=== PATIENT | male | born 1940 | race Caucasian/White ===

== ENCOUNTER → 2017-02-12 | Outpatient (CLI) | payer MEDICARE, OTHER ==
[~2017-02-12] MED LIST: /AUGM875TA OR; ALBU17IN2 INH; ALBUTEROL INH; ASPI81TA83 OR; ATEN25TA OR; LASI80TA OR; POTA10CA2 OR; PRAV20TA2 OR; SYMB80AE INH; TYLENOL #3 OR
--- NOTE | 2017-02-12 09:09 | REP ---
Chest two views HISTORY: Atherosclerotic heart disease. Comparison: 05/06/2009 The lungs are clear. The heart is upper limits of normal in size. The pulmonary vasculature is normal in appearance. The bony structure is intact. IMPRESSION: No acute disease. Signed by Shahriar Unger MD 02/12/2017 09:01 A
[2017-02-12 09:36] LABS: BASO % 0.8 % (0.0-1.0); EOS # 0.3 K/mm3 (0.0-0.50); LARGE UNSTAINED CELL # 0.2 K/mm3 (0.0-0.4); LARGE UNSTAINED CELL % 3.5 % (0.0-4.0); LYMPH # 1.2 K/mm3 (1.5-4.5); LYMPH % 20.1 % (24.0-44.0); MEAN CORPUSCULAR HEMOGLOBIN 30.5 pg (27.0-33.0); MEAN CORPUSCULAR HGB CONC 32.7 g/dl (32.0-36.5); MEAN CORPUSCULAR VOLUME 93.1 fl (80.0-96.0); MONO # 0.5 K/mm3 (0.0-0.8); MONO % 9.5 % (0.0-5.0); NEUTROPHILS # 3.2 K/mm3 (1.8-7.7); NEUTROPHILS % 61.1 % (36.0-66.0); PLATELET COUNT, AUTOMATED 208 k/mm3 (150-450); RED CELL DISTRIBUTION WIDTH 14.1 % (11.5-14.5); WHITE BLOOD COUNT 5.2 K/mm3 (4.0-10.0)
[2017-02-12 09:44] LABS: ALBUMIN 3.8 GM/DL (3.2-5.2); ALBUMIN/GLOBULIN RATIO 1.03 (1.00-1.93); ALKALINE PHOSPHATASE 130 U/L (45-117); ALT/SGPT 34 U/L (12-78); ANION GAP 7 MEQ/L (8-16); AST/SGOT 22 U/L (15-37); BILIRUBIN,TOTAL 0.5 MG/DL (0.2-1.0); BLOOD UREA NITROGEN 21 MG/DL (7-18); CALCIUM LEVEL 8.9 MG/DL (8.8-10.2); CARBON DIOXIDE LEVEL 30 MEQ/L (21-32); CHLORIDE LEVEL 106 MEQ/L (98-107); CHOLESTEROL LEVEL 194 MG/DL (<200); CREATININE FOR GFR 1.02 MG/DL (0.70-1.30); GLOMERULAR FILTRATION RATE > 60.0 (>42); GLUCOSE, FASTING 118 MG/DL (83-110); SODIUM LEVEL 143 MEQ/L (136-145); TOTAL PROTEIN 7.5 GM/DL (6.4-8.2); TRIGLYCERIDES LEVEL 231 MG/DL (<150)
== END ==
LOC: M WUC 08:08
PROVIDERS: ATTEND Nurse Practitioner Family
DX: Z12.5 Encounter for screening for malignant neoplasm of prostate (principal); I25.10 Atherosclerotic heart disease of native coronary artery without angina pectoris; I10 Essential (primary) hypertension; E78.5 Hyperlipidemia, unspecified; R73.01 Impaired fasting glucose

== ENCOUNTER → 2017-08-23 | Outpatient (CLI) | payer MEDICARE, OTHER ==
[2017-08-23 18:07] LABS: BASO # 0.1 10^3/uL (0.0-0.2); BASO % 1.1 % (0.0-1.0); EOS # 0.3 10^3/uL (0.0-0.50); EOS % 3.5 % (0.0-3.0); IMMATURE GRANULOCYTE % 0.3 % (0-0); LYMPH # 1.1 10^3/uL (1.5-4.5); LYMPH % 15.8 % (24.0-44.0); MEAN CORPUSCULAR HEMOGLOBIN 30.1 pg (27.0-33.0); MEAN CORPUSCULAR HGB CONC 31.6 g/dl (32.0-36.5); MEAN CORPUSCULAR VOLUME 95.3 fl (80.0-96.0); MONO # 0.7 10^3/uL (0.0-0.8); MONO % 10.3 % (0.0-5.0); NEUTROPHILS # 4.9 10^3/uL (1.8-7.7); PLATELET COUNT, AUTOMATED 219 10^3/uL (150-450); RED CELL DISTRIBUTION WIDTH 13.6 % (11.5-14.5); WHITE BLOOD COUNT 7.2 10^3/uL (4.0-10.0)
[2017-08-23 18:28] LABS: ALBUMIN 3.6 GM/DL (3.2-5.2); ALKALINE PHOSPHATASE 131 U/L (45-117); ALT/SGPT 31 U/L (12-78); ANION GAP 7 MEQ/L (8-16); AST/SGOT 21 U/L (7-37); BILIRUBIN,TOTAL 0.6 MG/DL (0.2-1.0); BLOOD UREA NITROGEN 16 MG/DL (7-18); CALCIUM LEVEL 8.8 MG/DL (8.8-10.2); CARBON DIOXIDE LEVEL 31 MEQ/L (21-32); CHLORIDE LEVEL 108 MEQ/L (98-107); CHOLESTEROL LEVEL 162 MG/DL (<200); GLOMERULAR FILTRATION RATE > 60.0 (>42); GLUCOSE, FASTING 111 MG/DL (83-110); POTASSIUM SERUM 4.2 MEQ/L (3.5-5.1); SODIUM LEVEL 146 MEQ/L (136-145); TOTAL PROTEIN 7.2 GM/DL (6.4-8.2); TRIGLYCERIDES LEVEL 121 MG/DL (<150); URIC ACID 6.6 MG/DL (3.5-7.2)
== END ==
LOC: M WUC 10:19
PROVIDERS: ATTEND Nurse Practitioner Family
DX: I10 Essential (primary) hypertension (principal); R73.01 Impaired fasting glucose; E78.5 Hyperlipidemia, unspecified

== ENCOUNTER → 2018-02-13 | Outpatient (CLI) | payer MEDICARE, OTHER ==
[2018-02-13 09:25] LABS: BASO # 0.1 10^3/uL (0.0-0.2); EOS # 0.2 10^3/uL (0.0-0.50); EOS % 4.8 % (0.0-3.0); HEMOGLOBIN 12.4 g/dl (13.5-17.5); IMMATURE GRANULOCYTE % 0.8 % (0-3.0); LYMPH # 1.2 10^3/uL (1.5-4.5); LYMPH % 24.8 % (24.0-44.0); MEAN CORPUSCULAR HEMOGLOBIN 30.3 pg (27.0-33.0); MEAN CORPUSCULAR HGB CONC 32.6 g/dl (32.0-36.5); MEAN CORPUSCULAR VOLUME 92.9 fl (80.0-96.0); MONO # 0.6 10^3/uL (0.0-0.8); MONO % 12.8 % (0.0-5.0); NEUTROPHILS # 2.8 10^3/uL (1.8-7.7); NEUTROPHILS % 55.8 % (36.0-66.0); PLATELET COUNT, AUTOMATED 247 10^3/uL (150-450); RED BLOOD COUNT 4.09 10^6/uL (4.30-6.10); RED CELL DISTRIBUTION WIDTH 13.3 % (11.5-14.5)
[2018-02-13 09:56] LABS: ALBUMIN 3.5 GM/DL (3.2-5.2); ALBUMIN/GLOBULIN RATIO 0.92 (1.00-1.93); ALKALINE PHOSPHATASE 117 U/L (45-117); ALT/SGPT 33 U/L (12-78); ANION GAP 6 MEQ/L (8-16); AST/SGOT 24 U/L (7-37); BILIRUBIN,TOTAL 0.7 MG/DL (0.2-1.0); BLOOD UREA NITROGEN 17 MG/DL (7-18); CALCIUM LEVEL 8.8 MG/DL (8.8-10.2); CARBON DIOXIDE LEVEL 31 MEQ/L (21-32); CHLORIDE LEVEL 109 MEQ/L (98-107); CHOLESTEROL LEVEL 155 MG/DL (<200); CREATININE FOR GFR 1.01 MG/DL (0.70-1.30); GLOMERULAR FILTRATION RATE > 60.0 (>42); GLUCOSE, FASTING 123 MG/DL (70-100); HDL CHOLESTEROL 52 MG/DL (>40); LDL CHOLESTEROL 80.2 MG/DL (<100); NON-HDL-C 103 MG/DL; POTASSIUM SERUM 4.4 MEQ/L (3.5-5.1); SODIUM LEVEL 146 MEQ/L (136-145); TOTAL PROTEIN 7.3 GM/DL (6.4-8.2); TRIGLYCERIDES LEVEL 114 MG/DL (<150)
[2018-02-13 10:45] LABS: ESTIMATED AVERAGE GLUCOSE 146 MG/DL (60-110); HEMOGLOBIN A1c 6.7 %
[2018-02-14 14:11] LABS: PSA % FREE 23.7 % (.); PSA FREE 1.09 ng/mL; PSA TOTAL 4.6 ng/mL (0.0-4.0)
== END ==
LOC: M WUC 08:32
DX: R73.01 Impaired fasting glucose (principal); I10 Essential (primary) hypertension; Z12.5 Encounter for screening for malignant neoplasm of prostate; E78.5 Hyperlipidemia, unspecified
CPT/HCPCS: 80053

== ENCOUNTER 2018-04-01 10:04 | Day surgery (SDC) | payer MEDICARE, OTHER ==
[2018-04-01] MEDS: NS 1,000 ML IV (10:15)
[2018-04-01] MEDS ORDERED: PROPOFOL 200 MG/20 ML VIAL As Ordered (11:27)
== END 2018-04-01 12:17 | disposition home or self-care (01) ==
LOC: M OPP 10:04
DX: Z12.11 Encounter for screening for malignant neoplasm of colon (principal); D12.3 Benign neoplasm of transverse colon; K64.0 First degree hemorrhoids; K57.30 Diverticulosis of large intestine without perforation or abscess without bleeding; I10 Essential (primary) hypertension; I25.6 Silent myocardial ischemia; R06.02 Shortness of breath; M19.90 Unspecified osteoarthritis, unspecified site; J45.909 Unspecified asthma, uncomplicated; H91.3 Deaf nonspeaking, not elsewhere classified; G47.30 Sleep apnea, unspecified; R06.83 Snoring; Z87.891 Personal history of nicotine dependence; Z79.82 Long term (current) use of aspirin; Z79.899 Other long term (current) drug therapy; Z80.42 Family history of malignant neoplasm of prostate; Z80.3 Family history of malignant neoplasm of breast
CPT/HCPCS: 45385

== ENCOUNTER → 2018-07-30 | Outpatient (CLI) | payer MEDICARE, OTHER ==
[2018-07-30 11:59] LABS: BASO # 0.1 10^3/uL (0.0-0.2); BASO % 0.9 % (0.0-1.0); EOS # 0.4 10^3/uL (0.0-0.50); EOS % 6.1 % (0.0-3.0); HEMATOCRIT 40.3 % (42.0-52.0); HEMOGLOBIN 13.1 g/dl (13.5-17.5); IMMATURE GRANULOCYTE % 0.3 % (0-3.0); LYMPH # 1.2 10^3/uL (1.5-4.5); LYMPH % 20.1 % (24.0-44.0); MEAN CORPUSCULAR HEMOGLOBIN 30.3 pg (27.0-33.0); MEAN CORPUSCULAR HGB CONC 32.5 g/dl (32.0-36.5); MEAN CORPUSCULAR VOLUME 93.3 fl (80.0-96.0); MONO # 0.7 10^3/uL (0.0-0.8); NEUTROPHILS # 3.5 10^3/uL (1.8-7.7); NEUTROPHILS % 60.6 % (36.0-66.0); PLATELET COUNT, AUTOMATED 232 10^3/uL (150-450); RED BLOOD COUNT 4.32 10^6/uL (4.30-6.10); RED CELL DISTRIBUTION WIDTH 13.5 % (11.5-14.5); WHITE BLOOD COUNT 5.8 10^3/uL (4.0-10.0)
[2018-07-30 12:26] LABS: ALBUMIN 3.5 GM/DL (3.2-5.2); ALKALINE PHOSPHATASE 123 U/L (45-117); ALT/SGPT 30 U/L (12-78); ANION GAP 3 MEQ/L (8-16); AST/SGOT 20 U/L (7-37); BILIRUBIN,TOTAL 0.7 MG/DL (0.2-1.0); BLOOD UREA NITROGEN 18 MG/DL (7-18); CALCIUM LEVEL 8.9 MG/DL (8.8-10.2); CARBON DIOXIDE LEVEL 33 MEQ/L (21-32); CHLORIDE LEVEL 108 MEQ/L (98-107); CHOLESTEROL LEVEL 157 MG/DL (<200); CHOLESTEROL RISK RATIO 3.413 (<5); CREATININE FOR GFR 1.05 MG/DL (0.70-1.30); GLOMERULAR FILTRATION RATE > 60.0 (>42); GLUCOSE, FASTING 111 MG/DL (70-100); HDL CHOLESTEROL 46 MG/DL (>40); LDL CHOLESTEROL 83 MG/DL (<100); NON-HDL-C 111 MG/DL; POTASSIUM SERUM 4.4 MEQ/L (3.5-5.1); SODIUM LEVEL 144 MEQ/L (136-145); TRIGLYCERIDES LEVEL 138 MG/DL (<150)
[2018-07-30 12:44] LABS: ESTIMATED AVERAGE GLUCOSE 134 MG/DL (60-110); HEMOGLOBIN A1c 6.3 %
== END ==
LOC: M WUC 10:08
DX: M17.12 Unilateral primary osteoarthritis, left knee (principal); M25.562 Pain in left knee; I10 Essential (primary) hypertension; E78.5 Hyperlipidemia, unspecified; E11.9 Type 2 diabetes mellitus without complications
CPT/HCPCS: 80053

== ENCOUNTER → 2019-01-22 | Outpatient (CLI) | payer MEDICARE, OTHER ==
[~2019-01-22] MED LIST changes: +ADV250INH INH; +ALLO10TA PO; -ASPI81TA83 OR; +ASPI81TA83 PO; +LATA0.0013 OU
[2019-01-22 12:47] LABS: BASO # 0.1 10^3/uL (0.0-0.2); EOS # 0.3 10^3/uL (0.0-0.50); EOS % 4.5 % (0.0-3.0); HEMATOCRIT 40.7 % (42.0-52.0); HEMOGLOBIN 13.1 g/dl (13.5-17.5); LYMPH # 1.3 10^3/uL (1.5-4.5); LYMPH % 20.5 % (24.0-44.0); MEAN CORPUSCULAR HEMOGLOBIN 30.6 pg (27.0-33.0); MEAN CORPUSCULAR HGB CONC 32.2 g/dl (32.0-36.5); MEAN CORPUSCULAR VOLUME 95.1 fl (80.0-96.0); MONO # 0.8 10^3/uL (0.0-0.8); MONO % 12.6 % (0.0-5.0); NEUTROPHILS # 3.8 10^3/uL (1.8-7.7); NEUTROPHILS % 60.9 % (36.0-66.0); PLATELET COUNT, AUTOMATED 213 10^3/uL (150-450); RED BLOOD COUNT 4.28 10^6/uL (4.30-6.10); WHITE BLOOD COUNT 6.2 10^3/uL (4.0-10.0)
[2019-01-22 13:04] LABS: ALBUMIN 3.9 GM/DL (3.2-5.2); ALT/SGPT 35 U/L (12-78); BILIRUBIN,TOTAL 0.9 MG/DL (0.2-1.0); BLOOD UREA NITROGEN 18 MG/DL (7-18); CARBON DIOXIDE LEVEL 31 MEQ/L (21-32); CHLORIDE LEVEL 107 MEQ/L (98-107); CHOLESTEROL LEVEL 177 MG/DL (<200); GLOMERULAR FILTRATION RATE > 60.0 (>42); GLUCOSE, FASTING 121 MG/DL (70-100); HDL CHOLESTEROL 56 MG/DL (>40); LDL CHOLESTEROL 89 MG/DL (<100); NON-HDL-C 121 MG/DL; SODIUM LEVEL 143 MEQ/L (136-145); TRIGLYCERIDES LEVEL 161 MG/DL (<150)
[2019-01-22 13:08] LABS: HEMOGLOBIN A1c 6.2 %
== END ==
LOC: M WUC 10:14
PROVIDERS: ATTEND Nurse Practitioner Family
DX: E11.9 Type 2 diabetes mellitus without complications (principal); E78.5 Hyperlipidemia, unspecified; I10 Essential (primary) hypertension

== ENCOUNTER → 2019-06-30 | Outpatient (CLI) | payer MEDICARE, OTHER ==
[2019-06-30 13:03] LABS: HEMATOCRIT 41.8 % (42.0-52.0); HEMOGLOBIN 13.5 g/dl (13.5-17.5); MEAN CORPUSCULAR HEMOGLOBIN 30.4 pg (27.0-33.0); MEAN CORPUSCULAR HGB CONC 32.3 g/dl (32.0-36.5); MEAN CORPUSCULAR VOLUME 94.1 fl (80.0-96.0); PLATELET COUNT, AUTOMATED 303 10^3/uL (150-450); RED BLOOD COUNT 4.44 10^6/uL (4.30-6.10); WHITE BLOOD COUNT 9.8 10^3/uL (4.0-10.0)
[2019-06-30 13:32] LABS: ALBUMIN 3.4 GM/DL (3.2-5.2); ALT/SGPT 39 U/L (12-78); BILIRUBIN,TOTAL 0.6 MG/DL (0.2-1.0); BLOOD UREA NITROGEN 18 MG/DL (7-18); CALCIUM LEVEL 9.7 MG/DL (8.8-10.2); CARBON DIOXIDE LEVEL 30 MEQ/L (21-32); CHLORIDE LEVEL 105 MEQ/L (98-107); CHOLESTEROL LEVEL 143 MG/DL (<200); CHOLESTEROL RISK RATIO 3.487 (<5); CREATININE FOR GFR 1.11 MG/DL (0.70-1.30); GLOMERULAR FILTRATION RATE > 60.0 (>35); GLUCOSE, FASTING 115 MG/DL (70-100); HDL CHOLESTEROL 41 MG/DL (>40); LDL CHOLESTEROL 75 MG/DL (<100); NON-HDL-C 102 MG/DL; POTASSIUM SERUM 4.4 MEQ/L (3.5-5.1); SODIUM LEVEL 142 MEQ/L (136-145); TOTAL PROTEIN 7.5 GM/DL (6.4-8.2); TRIGLYCERIDES LEVEL 137 MG/DL (<150)
== END ==
LOC: M WUC 10:31
PROVIDERS: ATTEND Obstetrics & Gynecology
DX: E78.00 Pure hypercholesterolemia, unspecified (principal); I10 Essential (primary) hypertension; Z87.891 Personal history of nicotine dependence

== ENCOUNTER → 2019-07-13 | Outpatient (CLI) | payer MEDICARE, OTHER ==
--- NOTE | 2019-07-13 12:01 | REP ---
Emergency bilateral lower extremity arterial Doppler ultrasound: History: History of left lower extremity stents. Peripheral vascular disease. Findings: Ankle brachial indices could not be accomplished due to occluded vessels and patient tolerance. Severe plaquing is seen bilaterally in the lower extremity arteries. Monophasic arterial Doppler waveforms are seen throughout the lower extremities bilaterally. The right distal anterior tibial artery and the left distal posterior tibial artery are seen to be occluded. No stents are visualized. Exam is somewhat limited due to patient body habitus and edema. Right lower extremity arterial Doppler velocity chart: CF A 8-39 cm/S Profunda 176 Proximal SFA 128 Mid SFA 377 Distal SFA 91 Popliteal 58 Proximal AT A 45 Tibioperoneal trunk 78 Proximal PENCIL SORTER 57 Distal PENCIL SORTER 50 Distal AT A occluded Left lower extremity arterial Doppler velocity chart: CF A 99 cm/S Profunda 141 Proximal SFA 101 Mid SFA 70 Distal SFA 105 Popliteal 45 Proximal AT A 9.5 Tibioperoneal trunk 42 Proximal PENCIL SORTER 44 Distal PENCIL SORTER occluded Distal AT A 35 Electronically Signed by Hector Espinoza MD 07/13/2019 11:53 A
== END ==
LOC: M RAD 09:58
PROVIDERS: ATTEND Surgery Vascular Surgery
DX: I73.9 Peripheral vascular disease, unspecified (principal); R60.0 Localized edema

== ENCOUNTER → 2019-08-17 | Outpatient (CLI) | payer MEDICARE, OTHER ==
[~2019-08-17] VITALS: Ht 167.6 cm; Wt 109.8 kg
[~2019-08-17] MED LIST changes: +CLOP75TA2 PO; +CLOPIDOGREL 75 MG TAB As Ordered ONE; +HEPARIN 1,000 UNITS/ML 10ML VIAL (FOR RADIOLOGY& DIALYSIS ONLY) As Ordered ONE; +ISOVUE-300 61% 50ML VIAL (Q9967) As Ordered ONE; +LIDOCAINE 1% MDV 20ML VIAL As Ordered ONE; +MIDAZOLAM INJ 2 MG/2 ML VIAL (J2250) As Ordered ONE; +fentaNYL 100 MCG/2 ML INJECTION (J3010) As Ordered ONE
[2019-08-17 09:11] LABS: HEMATOCRIT 39.6 % (42.0-52.0); MEAN CORPUSCULAR HEMOGLOBIN 30.9 pg (27.0-33.0); MEAN CORPUSCULAR HGB CONC 32.8 g/dl (32.0-36.5); MEAN CORPUSCULAR VOLUME 94.1 fl (80.0-96.0); PLATELET COUNT, AUTOMATED 238 10^3/uL (150-450); RED BLOOD COUNT 4.21 10^6/uL (4.30-6.10); WHITE BLOOD COUNT 5.8 10^3/uL (4.0-10.0)
[2019-08-17 09:32] LABS: BLOOD UREA NITROGEN 15 MG/DL (7-18); CALCIUM LEVEL 9.4 MG/DL (8.8-10.2); CARBON DIOXIDE LEVEL 30 MEQ/L (21-32); CHLORIDE LEVEL 108 MEQ/L (98-107); CREATININE FOR GFR 1.05 MG/DL (0.70-1.30); GLOMERULAR FILTRATION RATE > 60.0 (>35); GLUCOSE, FASTING 112 MG/DL (70-100); POTASSIUM SERUM 4.3 MEQ/L (3.5-5.1); SODIUM LEVEL 143 MEQ/L (136-145)
--- NOTE | 2019-08-17 12:14 | ROOPDOC ---
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 Ultrasound-guided access right common femoral artery 2. Aortoiliofemoral arteriogram, left lower extremity arteriogram and runoff from common femoral selection 3. Cross chronic total occlusion left superficial femoral artery and select arteriogram at popliteal artery left 4. Angioplasty left superficial femoral artery with 6 x 200 [place] balloon 5. Stent left superficial femoral artery with 6 x 150 and innova stent 2, and post-dilation was 6 x 200 [place] balloon 6. Completion arteriogram left lower extremity 7. Right lower extremity arteriogram and runoff 8. Mynx closure device right common femoral artery SURGEON: Dean Ortiz MD ANESTHESIA: Local anesthesia 10 mL lidocaine. Moderate intravenous conscious sedation was administered by Dr. Ortiz. The patient was independently monitored by a registered nurse and signed to the Department of radiology using automated blood pressure, EKG, and pulse oximetry. The detailed conscious sedation record is permanently house in the hospital information system. The following is the brief sedation record: Start time 10:45, stop time 11:40, fentanyl 75 g IV, Versed 2 mg IV, heparin 5000 units IV. INDICATION FOR PROCEDURE: Mr. Montalvo is a very pleasant 79-year-old gentleman with atherosclerosis the eagle vessels and suspected claudication. The patient is deaf, and I believe some of his description of his lower extremity discomfort is lasted translation with the buckle sewer machine for sign language. After a lengthy discussion, I was convinced the patient did have symptomatic vascular disease and claudication, although his description was not classic. His arterial duplex revealed arterial insufficiency bilaterally, and the risks benefits and alternatives to an arteriogram with intervention were explained. The patient said the worst symptoms were on the left so we will start with that leg. We did not use of substantial amount of IV contrast, we may angiogram the right leg after the procedure to see if we need to bring him back for that extremity. We had a long talk about this and all questions were answered. Informed consent was obtained. INTERPRETATION: 1. Aortoiliac arterial system bilaterally is widely patent large with brisk flow. 2. The left common femoral artery is widely patent and runs off until widely patent profunda which gives extensive collaterals to the above-knee popliteal artery. The SFA is patent proximally but tapers off a few centimeters from its origin and then includes with an extensive network of collaterals around the chronic total occlusion reconstituting above the knee in the popliteal artery. There is 3 vessel runoff to the foot. 3. After crossing the chronic total occlusion and confirming we're in the true lumen at the popliteal with a quick arteriogram, we performed an angioplasty across the area of occlusion, and three-minute inflations along the length of the vessel were performed. There was several areas of flow-limiting dissection and stenosis after angioplasty. We were able to successfully stent the occluded SFA and completion arteriogram showed widely patent flow from the common femoral to the toes with no embolization, externalization, or dissection present. 4. The right lower extremity common femoral artery and profunda are widely patent. SFA is open proximally but tapers and occludes and reconstitutes in the mid below knee popliteal artery through an extensive system of collaterals. It is difficult to see how much tibial outflow is present due to the long segment occlusion of the SFA, but at least the posterior tibial and peroneal appear to be open, possibly the anterior tibial as well. We will need better imaging once we treat the SFA disease. This will be done on a separate procedure. REPORT OF OPERATION: Patient was brought to the angiographic suite in stable condition. His bilateral groins were prepped and draped in a sterile fashion. A timeout was performed. Sedation was administered without consultation. Ultrasound was used to guide access to the right common femoral artery cranial. This was a difficult access due to morbid obesity. A wire was passed through this access into the femoral and iliac system under fluoroscopic guidance. The needle was removed and a micro-sheath was placed under fluoroscopic guidance. We then advanced a Glidewire through the iliac system into the distal aorta under fluoroscopic guidance. The micro-sheath was removed and a 6 Japanese sheath was placed and flushed with saline. We advanced an Omni flushed catheter over the wire into the distal aorta and aortoiliofemoral arteriograms were performed. Please see interpretation above. Next, we would happen over the bifurcation to select the left common femoral artery and from their arteriograms of the left lower extremity were performed. Please see interpretation above. We then advanced a Glidewire through the Omni flushed catheter into the SFA down to the area of occlusion. We then removed the Omni flushed catheter and exchanged for a short 6 Japanese sheath for 45 cm 6 Japanese sheath up over the bifurcation and flushed sheath with saline. We then attempted to cross the chronic total occlusi on with a Glidewire and aerobic on catheter, but unfortunately the wire and the catheter kept selecting large chronic collaterals. We therefore exchange the catheter for an angle glide to try to angle the tip of the wire away from the collaterals. Eventually, we were able to cross through into the eagle popliteal artery and confirm this with a quick arteriogram. We then advanced her wire into the tibial system carefully and over the wire we passed a 6 x 200 [place] balloon. Three-minute inflations was performed proximally and distally across the areas of occlusion. Following this, we noted several areas of dissection and irregular plaque, both flow-limiting. We selected to Innova stents, 6 x 150, and these were deployed from Maikol's canal to the proximal SFA to exclude the flow- limiting plaque and dissections. We then post-dilated with a 6 x 200 [place] balloon. Completion arteriograms on the left showed widely patent flow through the SFA with no extravasation embolization or dissections present. We had patent 3 vessel runoff to the foot with no embolization noted. We then exchanged for 6 Japanese sheath for a short 6 Japanese sheath and flushed sheath with saline. We then performed a quick arteriogram of the right lower extremity to ensure that we did need to bring the patient back for intervention so we can discuss this with him at his next clinic visit and he can make a decision on further intervention. Please see interpretation above. We deployed a minx closure device at the right common femoral artery with good hemostasis. Pressure was held for 10 minutes and the patient was taken to recovery in stable condition. ESTIMATED BLOOD LOSS: Approximately 10 mL. COMPLICATIONS: None. PLAN: Our plan is for 4 hours of bedrest and then DC home, and then we will celina ng the patient back to clinic and see how he is feeling after his left lower extremity intervention. He will need to be on Plavix postprocedure for at least 60 days. We will discuss the findings of his right lower extremity arteriogram in clinic and see if he would like to pursue right lower extremity intervention. The blockage on the right is a little worse in the blockage on the left, and I'm not 100% that we can [place], but I definitely think it is worthwhile. This is a patient who is high risk for open surgery due to advanced age and morbid obesity. An endovascular option is certainly in his favor if we can provide it. The patient is not at risk for limb loss, and if he chooses not to have intervention, he will likely only have claudication, so we will see how he feels about additional intervention at his next visit. DEAN ORTIZ MD Aug 17, 2019 12:14
[2019-08-17 15:30] VITALS: BP 134/63
== END ==
LOC: M IRPRO 08:35
PROVIDERS: ATTEND Surgery Vascular Surgery
DX: I70.213 Atherosclerosis of native arteries of extremities with intermittent claudication, bilateral legs (principal); I70.92 Chronic total occlusion of artery of the extremities; E66.01 Morbid (severe) obesity due to excess calories
CPT/HCPCS: 37226; 37228; 75716; 75774; 80048; 85027; 99152; 99153; C1725; C1760; C1769; C1876; C1887; C1894; J2250; J3010; Q9967

== ENCOUNTER → 2019-09-01 | Outpatient (CLI) | payer MEDICARE, OTHER ==
[~2019-09-01] MED LIST changes: -CLOPIDOGREL 75 MG TAB As Ordered ONE
[2019-09-01 07:05] VITALS: BP 192/91
== END ==
LOC: M IRPRO 06:51
PROVIDERS: ATTEND Surgery Vascular Surgery
DX: I70.209 Unspecified atherosclerosis of native arteries of extremities, unspecified extremity (principal); Z53.9 Procedure and treatment not carried out, unspecified reason

== ENCOUNTER → 2019-09-27 | Outpatient (CLI) | payer MEDICARE, OTHER ==
[~2019-09-27] MED LIST changes: +CLOPIDOGREL 75 MG TAB As Ordered ONE
[2019-09-27 08:59] LABS: HEMATOCRIT 41.2 % (42.0-52.0); HEMOGLOBIN 13.3 g/dl (13.5-17.5); MEAN CORPUSCULAR HEMOGLOBIN 30.4 pg (27.0-33.0); MEAN CORPUSCULAR HGB CONC 32.3 g/dl (32.0-36.5); MEAN CORPUSCULAR VOLUME 94.3 fl (80.0-96.0); PLATELET COUNT, AUTOMATED 234 10^3/uL (150-450); RED BLOOD COUNT 4.37 10^6/uL (4.30-6.10); WHITE BLOOD COUNT 5.7 10^3/uL (4.0-10.0)
[2019-09-27 09:19] LABS: BLOOD UREA NITROGEN 16 MG/DL (7-18); CALCIUM LEVEL 9.1 MG/DL (8.8-10.2); CARBON DIOXIDE LEVEL 31 MEQ/L (21-32); CHLORIDE LEVEL 107 MEQ/L (98-107); CREATININE FOR GFR 1.12 MG/DL (0.70-1.30); GLOMERULAR FILTRATION RATE > 60.0 (>35); GLUCOSE, FASTING 120 MG/DL (70-100); POTASSIUM SERUM 3.9 MEQ/L (3.5-5.1); SODIUM LEVEL 144 MEQ/L (136-145)
--- NOTE | 2019-09-27 14:21 | ROOPDOC ---
[facility] Report Of Operation Report of Operation DATE OF PROCEDURE: 09/27/19 PREPROCEDURE DIAGNOSES: Atherosclerosis of the lower [place] vessels with lifestyle limiting claudication POSTPROCEDURE DIAGNOSES: Same PROCEDURE: 1. Ultrasound-guided access left common femoral artery 2. Right lower extremity arteriogram and after selection of the right superfic ial femoral artery and distal popliteal artery 3. Angioplasty right popliteal artery and distal SFA with 5 x 200 [place] balloon 4. Angioplasty right SFA with 6 x 200 [place] balloon 5. Stent right proximal popliteal artery with 5 x 100 Innova stent and post- dilation with 5 x 200 [place] balloon 6. Completion arteriograms 7. Mynx closure left common femoral artery SURGEON: Dean Ortiz MD ANESTHESIA: Local anesthesia 7 mL lidocaine. Moderate intravenous conscious sedation was supervised by Dr. Ortiz. The patient was independently monitored by registered nurse assigned in the department of radiology using automated blood pressure, EKG, and pulse oximetry. The detailed sedation record is permanently stored in the Hospital information system. The following is the brief sedation record: Start time 12:55, stop time 14:01, fentanyl 100 g IV, Versed 1 mg IV, heparin 5000 units IV. CONTRAST: 55 mL Isovue-300 INDICATION FOR PROCEDURE: Mr. Montalvo is a very pleasant 79-year-old patient with bilateral lower extremity severe peripheral vascular disease who underwent revascularization on the left lower extremity now returns for revascularization on the right lower extremity. Risks benefits alternatives to intervention were explained to the patient. Our plan today is to angioplasty his popliteal artery and SFA artery stenoses and occlusion if we are able to cross him. His tibial ou tflow is mainly through the posterior tibial artery with some flow through the AT and the peritoneal, but he has excellent flow through the posterior tibial artery and no wounds on the foot, therefore we will likely not intervene on the tibials today. During inflow to the lower part of his leg by opening up the occlusion in the SFA should be very helpful. He was agreeable to proceed and informed consent was obtained. We had a sign writer letterer or painter present for the preop in the entire procedure in the postop for sign language as the patient is deaf. INTERPRETATION: 1. 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 The vessel reconstitutes in the popliteal artery through extensive collaterals although there is thready flow more proximal to this through heavy calcified plaque. There are extensive collaterals around the knee as well and there is a near occlusion in the mid popliteal artery. Distal to this, there is a widely patent popliteal artery and large posterior tibial artery runoff to the foot. The anterior tibial and peroneal are small and thready. 2. After crossing the chronic total occlusion in the SFA and crossing through the popliteal artery, we angioplasty the popliteal artery with a 5 x 200 [place] balloon. Following a three-minute inflation, there is a 3 cm dissection in the popliteal artery across the area of heavy stenosis and just distal to that. Repeat angioplasty was unsuccessful in resolving the dissection and it was narrowing the true lumen enough that I felt this warranted stenting. A 5 x 100 Innova stent was placed across just the proximal aspect of the dissection in order to avoid stenting across the midportion of the popliteal artery. This was postdilated with a 5 x 200 balloon and following this there was near resolution of the dissection and no flow limitation. 3. The chronic total occlusion and stenotic areas of the SFA were angioplasty for three-minute inflation with a 6 x 200 [place] balloon. Following this, there was widely patent flow through the SFA and no residual stenosis, no dissections and no extravasation. At this time I did not feel the area warranted a stent, but if her is recurrence of plaque or stenosis, we will need to stent. 4. Completion arteriogram showed good runoff to the foot and a mynx closure was performed of the left common femoral with good hemostasis. REPORT OF OPERATION: Patient was brought to the angiographic suite in stable condition and placed supine on the fluoroscopic table. His bilateral groins were prepped and draped in a sterile fashion. A timeout was performed. Local anesthesia was administered to the skin and subcutaneous tissue over the left common femoral artery and a microneedle was used to access the artery under ultrasound guidance. A wire was passed through this access under fluoroscopic guidance the needle was removed. The micro-sheath was placed and through this access Glidewire was advanced into the aorta under fluoroscopic guidance. We exchanged sheath for 6 [place] sheath with was flushed with saline. An Omni flushed catheter was used to go up and over the bifurcation and the Glidewire was navigated into the superficial femoral artery proximally. We then exchanged the sheath for 6 x 45 destination sheath and flushed the sheath with saline. Arteriograms were performed of the right lower extremity. We then utilized a gli de cath in the Glidewire to carefully navigate through the occlusion in the SFA. This took a bit of time, but we were eventually able to cross. We then attempted to cross through the popliteal artery distally, but this was more challenging than expected. The stenosis was actually tighter than we expected and took some time to cross. We then confirmed we were in the true lumen with a quick arteriogram, and then navigated a 5 x 200 [place] balloon across to the distal popliteal artery. A three-minute inflation was performed, and following this there was a dissection noted for 3 cm length in the mid popliteal artery. We angioplasty to second time for 4 minutes at low atmospheres, but unfortunately the dissection persisted. It did narrow the lumen enough that I felt it warranted stenting. We do not like to stent across the joint, so we place a stent just at the proximal aspect of the dissection to help eliminate the inflow issue. We postdilated with a 5 x 200 balloon and found near resolution of the dissection following this. We then angioplasty with a 6 x 200 [place] balloon across the superficial femoral artery occlusion from Maikol's canal to the proximal vessel. After three-minute inflation, we saw widely patent flow through the SFA with no residual stenosis, no extravasation, and no dissection. I did not feel this warranted the stent at this time, but we will place a stent restenosis occurs. We then obtained runoffs of the lower extremities and there was no embolization noted and still rapid flow through the widely patent posterior tibial artery of the foot which is the patient's best tibial runoff. The anterior tibial and peroneal are patent with thready. This concluded the procedure. We exchanged the sheath for short 6 [place] sheath and applied a Mynx closure device under fluoroscopic guidance with good hemostasis. Pressure was held for 10 minutes and the patient was transferred to recovery in stable condition. There were no complications and the patient tolerated the procedure well. ESTIMATED BLOOD LOSS: Approximately 5 mL. COMPLICATIONS: None. PLAN: Our plan will be to see the patient back in a week and check his perfusion. We will also check his groin access site on the left. He will need to be on Plavix for at minimum 60 days post stent placement. He is on Plavix now. DEAN ORTIZ MD Sep 27, 2019 14:21
[2019-09-27 18:05] VITALS: BP 159/87
== END ==
LOC: M IRPRO 08:06
PROVIDERS: ATTEND Surgery Vascular Surgery
DX: I70.213 Atherosclerosis of native arteries of extremities with intermittent claudication, bilateral legs (principal); I70.92 Chronic total occlusion of artery of the extremities
CPT/HCPCS: 37225; 75710; 80048; 85027; 99152; 99153; C1725; C1760; C1769; C1876; C1887; C1894; J2250; J3010; Q9967

== ENCOUNTER → 2019-11-22 | Outpatient (CLI) | payer MEDICARE, OTHER ==
[~2019-11-22] MED LIST changes: -CLOPIDOGREL 75 MG TAB As Ordered ONE; -HEPARIN 1,000 UNITS/ML 10ML VIAL (FOR RADIOLOGY& DIALYSIS ONLY) As Ordered ONE; -ISOVUE-300 61% 50ML VIAL (Q9967) As Ordered ONE; -LIDOCAINE 1% MDV 20ML VIAL As Ordered ONE; -MIDAZOLAM INJ 2 MG/2 ML VIAL (J2250) As Ordered ONE; -fentaNYL 100 MCG/2 ML INJECTION (J3010) As Ordered ONE
--- NOTE | 2019-11-22 13:25 | REP ---
Clinical: Symptoms related to atherosclerotic disease and intermittent claudication. Comparison: 07/13/2019 Technique: Real time foss scale and color Doppler evaluation of the bilateral lower extremity arterial vasculature using linear high frequency transducer. Findings: Examination is again severely limited due to body habitus and edema. Extensive bilateral atheromatous plaquing is again noted along with predominately bilateral monophasic wave patterns. The distal right posterior tibial artery is not identifiable and possibly occluded. Peak systolic velocities (cm/sec) RIGHT LEFT Common femoral artery 213.0 90.0 Profunda femoris 211.0 229.0 SFA (proximal) 228/263 139 SFA (mid) 206.0 107.0 SFA (distal) 121.0 92.0 Popliteal artery 79.4 108.0 CHRISTOPHE (prox.) 38.0 14.7 Tibioperoneal trunk 64.9 44.1 SHIPYARD HELPER (prox.) 25.9 56.7 SHIPYARD HELPER (distal) - 31.0 CHRISTOPHE (distal) 37.5 38.7 Incidental note is made of a complex hypoechoic area in the mid left thigh measuring 2.6 x 1.0 x 1.9 cm possible small hematoma or lipoma. Impression: Severely limited examination. Extensive bilateral atheromatous plaquing similar to prior examination. Consider CTA or MRA of the lower extremities for further investigation if necessary. Electronically Signed by Xavier Maradiaga MD 11/22/2019 01:16 P
== END ==
LOC: M RAD 10:47
PROVIDERS: ATTEND Physician Assistant
DX: I70.213 Atherosclerosis of native arteries of extremities with intermittent claudication, bilateral legs (principal)

== ENCOUNTER → 2019-12-21 | Outpatient (CLI) | payer MEDICARE, OTHER ==
[2019-12-21 12:50] LABS: BLOOD UREA NITROGEN 22 MG/DL (7-18); CARBON DIOXIDE LEVEL 33 MEQ/L (21-32); CHLORIDE LEVEL 108 MEQ/L (98-107); CREATININE FOR GFR 1.08 MG/DL (0.70-1.30); GLOMERULAR FILTRATION RATE > 60.0 (>35); GLUCOSE, FASTING 115 MG/DL (70-100); POTASSIUM SERUM 3.9 MEQ/L (3.5-5.1); SODIUM LEVEL 143 MEQ/L (136-145)
== END ==
LOC: M WUC 08:57
PROVIDERS: ATTEND Obstetrics & Gynecology
DX: I10 Essential (primary) hypertension (principal)

== ENCOUNTER → 2020-01-24 | Outpatient (CLI) | payer MEDICARE, OTHER ==
--- NOTE | 2020-01-24 10:59 | PFTRPT ---
Site: [facility], [address] [place], [address] ID: [id number] Name: CHASIDY LEVY Visit Date: 01/24/2020 Second ID: [id number] Referring Doctor: Naina Calderon DO Reviewing Doctor: Charnajit Head MD Environmental Marketing Representative: Ilana Garrison Age: 79 : 1940 Sex: Male Race: Height: 68.00 Inches Weight: 243.00 Lbs BSA: 2.22 Order IDs: [id number] Requested Test(s): <RESP-PFT.DLCO> Post Test Comments: Pt was given four puffs of albuterol for postbronchodilator. 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 Spirometry is questionable due to above reasons. Review Status: Not Reviewed Pre-Bronch Post-Bronch Pred Actual %Pred Actual %Chng SPIROMETRY FVC (L) 3.67 1.91 52 2.04 6 FEV1 (L) 2.59 1.53 59 1.63 5 FEV1/FVC (%) 71 80 113 80 FEF 25% (L/sec) 7.27 3.36 46 3.11 -7 FEF 50% (L/sec) 4.32 2.12 49 1.83 -13 FEF 75% (L/sec) 1.03 0.66 64 0.76 15 FEF 25-75% (L/sec) 1.75 1.46 83 1.71 16 FEF Max (L/sec) 6.69 3.39 50 3.14 -7 FIVC (L) 2.05 1.99 -2 FIF 50% (L/sec) 4.18 4.33 103 3.91 -9 FIF Max (L/sec) 4.35 4.07 -6 Expiratory Time (sec) 7.67 7.55 -1 Back Extrap Vol (L) 0.12 0.07 -41 Time To FEFmax (sec) 0.159 0.195 22 LUNG VOLUMES SVC (L) 4.10 2.12 51 IC (L) 3.07 1.38 44 ERV (L) 1.03 0.74 71
== END ==
LOC: M CARPUL 10:02
PROVIDERS: ATTEND Obstetrics & Gynecology
DX: Z87.891 Personal history of nicotine dependence (principal)

== ENCOUNTER → 2020-02-10 | Outpatient (CLI) | payer MEDICARE, OTHER ==
[~2020-02-10] MED LIST changes: +ASPI81CH17 PO; +ATEN25TA PO; +DOCU100C16 PO; +FURO80TA2 PO; +LISI-542 PO; +METO5TA PO; +MOM30SS2 PO; +POTA20TA6 PO; +PRAV40TA2 PO; +VENTAER INH; +XALA0.007 OU
--- NOTE | 2020-02-15 20:34 | SLEEPCENT ---
DATE OF PROCEDURE: 02/10/2020 ORDERED BY: Dr. Marilin Chaves [facility] Nocturnal polysomnography was performed for evaluation of sleep physiology in this patient with a prior history of obstructive sleep apnea syndrome. 8 hours and 2 minutes of data were reviewed. There were 244.5 minutes of sleep identified. Sleep latency was prolonged at 55.5 minutes. Rapid eye movement (REM) sleep was not achieved. Overall sleep architecture showed fragmentation and poor sleep progression. The sleep efficiency was 51.9%. Electrocardiogram showed a sinus rhythm throughout with an average heart rate of 54 beats per minute. Rate ranged 40-75. EEG showed fairly normal waveforms for awake and sleep. Some mild coarsening in the background. There were 310 respiratory events identified of 10 seconds in duration or greater for an apnea-hypopnea index of 76.1. The events were predominantly obstructive but 88 were central or mixed apneas. The events were not exclusive to sleep stage nor body posture, though they were more frequent in the supine position. Arousals from respiratory events occurred 39.5 times per hour and oxygen desaturations were seen into the 70s. Having clearly established the presence of obstructive sleep apnea syndrome early in testing, the study was stopped shortly after 1:00 a.m. for the application of pressure therapy. The patient was fit with a ResMed AirFit F20 full face mask of medium size, 4 cm of water pressure were applied to the circuit and the lights were extinguished. Throughout the remaining hours of testing, pressure titration was performed. Best sleep was seen on a continuous positive airway pressure (CPAP) of 6 cm. However, persistent hypopneic events occurred and the test ended shortly thereafter. IMPRESSION: Severe obstructive sleep apnea syndrome (G47.33). Apnea-hypopnea index 76.1. RECOMMENDATIONS: Initiation of CPAP at 16 cm should result in some improvement in the patient's sleep architecture; however, referral back to the sleep disorder center for full night titration is recommended and given the presence of central and mixed events, a bilevel device may be needed and backup rate may be necessary.
== END ==
LOC: M SLEEP 20:00
PROVIDERS: ATTEND Nurse Practitioner Family
DX: G47.33 Obstructive sleep apnea (adult) (pediatric) (principal)

== ENCOUNTER 2020-02-14 16:03 | Inpatient (IN) | payer MEDICARE, OTHER ==
[~2020-02-14] VITALS: Ht 167.6 cm; Wt 108.0 kg
[~2020-02-14 16:03] MED LIST changes: -ASPI81CH17 PO; -ATEN25TA PO; -DOCU100C16 PO; -FURO80TA2 PO; -LISI-542 PO; -METO5TA PO; -MOM30SS2 PO; -POTA20TA6 PO; -PRAV40TA2 PO; -VENTAER INH; -XALA0.007 OU
--- NOTE | 2020-02-14 17:54 | REP ---
KUB: REASON: History of constipation. FINDINGS: KUB shows the intestinal gas pattern to be nonspecific. The organ silhouettes insofar as delineated are unremarkable. There is no evidence of free intraperitoneal air. IMPRESSION: Nonspecific. The stool pattern appears to be within normal limits. Electronically Signed by Yahir Peres DO 02/14/2020 06:12 P
[2020-02-14 18:17] LABS: BASO # 0.1 10^3/uL (0.0-0.2); BASO % 0.8 % (0.0-1.0); EOS # 0.3 10^3/uL (0.0-0.5); EOS % 3.2 % (0.0-3.0); HEMATOCRIT 43.3 % (42.0-52.0); HEMOGLOBIN 14.8 g/dl (13.5-17.5); LYMPH # 1.5 10^3/uL (1.5-5.0); LYMPH % 17.8 % (24.0-44.0); MEAN CORPUSCULAR HEMOGLOBIN 30.4 pg (27.0-33.0); MEAN CORPUSCULAR HGB CONC 34.2 g/dl (32.0-36.5); MEAN CORPUSCULAR VOLUME 88.9 fl (80.0-96.0); NEUTROPHILS # 5.6 10^3/uL (1.5-8.5); NEUTROPHILS % 65.8 % (36.0-66.0); PLATELET COUNT, AUTOMATED 252 10^3/uL (150-450); RED BLOOD COUNT 4.87 10^6/uL (4.30-6.10); WHITE BLOOD COUNT 8.6 10^3/uL (4.0-10.0)
[2020-02-14] MEDS ORDERED: ISOVUE-370 76% 100ML VIAL As Ordered ONE (18:39)
[2020-02-14 18:41] LABS: BILIRUBIN,DIRECT 0.2 MG/DL (0.0-0.2); BILIRUBIN,TOTAL 1.1 MG/DL (0.2-1.0); TOTAL PROTEIN 8.3 GM/DL (6.4-8.2)
[2020-02-14] MEDS: KCL 20MEQ in NS 1000ML 1,000 ML IV SCH ×2 (18:50→20:30)
--- NOTE | 2020-02-14 19:36 | REPVR ---
PROCEDURE INFORMATION: Exam: CT Abdomen And Pelvis With Contrast Exam date and time: 02/14/2020 7:20 PM Age: 79 years old Clinical indication: Abdominal pain; Additional info: Abd pain TECHNIQUE: Imaging protocol: Computed tomography of the abdomen and pelvis with intravenous contrast. Radiation optimization: All CT scans at this facility use at least one of these dose optimization techniques: automated exposure control; mA and/or kV adjustment per patient size (includes targeted exams where dose is matched to clinical indication); or iterative reconstruction. Contrast material: ISO 370; Contrast volume: 100 ml; Contrast route: IV; COMPARISON: CT ABD PELVIS W/O CONTRAST 08/14/2016 1:59 PM FINDINGS: Lungs: The lung bases are unremarkable. Mediastinum: There is a small hiatal hernia. Liver: There is a diffuse decrease in hepatic parenchymal density, consistent with fatty infiltration. Gallbladder and bile ducts: The gallbladder is normal. Pancreas: The pancreas is normal. Spleen: The spleen is normal. Adrenals: The adrenal glands are unremarkable. Kidneys and ureters: The kidneys are normal. Stomach and bowel: There is no evidence of intestinal obstruction. Appendix: A normal appendix is identified. Intraperitoneal space: Unremarkable. No free air. No significant fluid collection. Vasculature: There is no evidence of an infrarenal abdominal aortic aneurysm. The arteries demonstrates diffuse moderate atherosclerotic calcification. Lymph nodes: Unremarkable. No enlarged lymph nodes. Bladder: The bladder is unremarkable. Reproductive: Prostatic enlargement. Bones/joints: Skeletal degeneration. Soft tissues: Unremarkable. IMPRESSION: No acute findings. Electronically signed by: Essie Matamoros On 02/14/2020 19:35:41 PM
[2020-02-14] MEDS ORDERED: POTASSIUM CHLORIDE INJ 60 MEQ in NS 1,000 ML IV SCH (20:45)
[2020-02-14] MEDS ORDERED: ONDANSETRON 4MG/2ML VIAL IV PRN (20:45)
[2020-02-14] MEDS ORDERED: ASPI81CH17 PO (21:02)
[2020-02-14] MEDS ORDERED: XALA0.007 OU (21:04)
[2020-02-14] MEDS ORDERED: PRAV40TA2 PO (21:04)
[2020-02-14] MEDS ORDERED: FURO80TA2 PO (21:04)
[2020-02-14] MEDS ORDERED: POTA20TA6 PO (21:04)
[2020-02-14] MEDS ORDERED: CLOP75TA2 PO (21:04)
[2020-02-14] MEDS ORDERED: VENTAER INH (21:05)
[2020-02-14] MEDS ORDERED: ATEN25TA PO (21:05)
[2020-02-14] MEDS ORDERED: METO5TA PO (21:05)
[2020-02-14 21:06] LABS: MAGNESIUM LEVEL 2.6 MG/DL (1.8-2.4)
--- NOTE | 2020-02-14 22:57 | HPEPDOC ---
[facility] Medical History & Physical Date of Admission February 14, 2020 Date of Service: February 14, 2020 Primary Care Physician: DALTON ANGELA D.O. Attending Physician: LUCINDA SALGADO MD History and Physical CHIEF COMPLAINT: Constipation HISTORY OF PRESENT ILLNESS: Kaushal is a friendly 79-year-old deaf male with history of hypertension, sleep apnea, PAD s/p bilateral lower extremity balloon angioplasties in late 2018, melanoma s/p skin excisions, and hypercholesterolemia, who drove himself to the emergency department earlier today with chief complaint of 5 days without a bowel movement. Last bowel movement was reported to be Friday, 02/08, and he endorsed accompanying mild pain with defecation that subsided soon after, with no blood in the stool. He feels bloated and feels a "heaviness of his abdomen." He denies having this symptom presentation previously, and usually has qd morning BMs. He had one episode of vomiting a few days ago and endorses only mild nausea. He has had a diminished appetite during the course of present symptoms with overall poor PO intake. He denies any associated melena or hematochezia. Also denies recent fever, chills, night sweats, sick contacts, or recent travel. He did recently start administration of three new medications (atenolol, metolazone, and albuterol inhaler). Upon presentation to ED, pt was found to have CHERI and hypokalemia. IVF fluids and K+ supplementation was subsequently initiated and he was admitted to med/surg status. PAST MEDICAL HISTORY: Deafness Essential hypertension Peripheral arterial disease, s/p b/l LE balloon angioplasty in Aug & Sep 2019 Sleep apnea, has been without CPAP for 67 years Suspected significant restrictive lung pathology on PFT last month (01/24/20); f/u full study recommended per pulmonology History of melanoma, s/p 2 skin excisions from right side of face and 5 excisions from back Hypercholesterolemia Onychomycosis, follows with podiatry [id number] smoking history, quit around after having smoked 3 packs per day for 45 years PAST SURGICAL HISTORY: Right lower extremity angiogram and angioplasty, 09/27/2019 Left lower extremity angiogram and angioplasty, 08/17/2019 Knee surgery 30 years ago Skin excisions- 2 from right side of face and 5 from back Shoulder arthroplasty SOCIAL HISTORY: Resides by himself. Has 3 children with whom he has a strained relationships are currently strained. Does have a friend that he communicates with regularly. 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 Denies any current or former illicit drug use. FAMILY HISTORY: Father: , cancer Mother: , brain tumor Has 3 children (2 sons and 1 daughter), who are all living. ALLERGIES: Please see below. REVIEW OF SYSTEMS: CONSTITUTIONAL: Denies recent illness, fever, chills, night sweats HEENT: Denies acute vision issues, rhinorrhea, nasal congestion, dysphagia, odynophagia CARDIOVASCULAR: Denies chest pain, chest pressure, palpitations, orthopnea RESPIRATORY: Endorses recent moderate increased exertional dyspnea. Denies pleuritic chest pain or cough GASTROINTESTINAL: Endorses constipation 5 days with abdominal bloating and distention per HPI; endorses intermittent mild nausea with one episode of vomiting in the past 5 days. Denies specific abdominal pain, blood in the stool GENITOURINARY: Denies dysuria or hematuria MUSCULOSKELETAL: Denies specific myalgias or arthralgias NEUROLOGICAL: Denies headache, numbness, or paresthesias of the extremities ENDOCRINE: Denies recent cold or heat intolerance HOME MEDICATIONS: Please see below. PHYSICAL EXAMINATION: VITAL SIGNS: Please see below GENERAL APPEARANCE: Friendly, obese gentleman. Deaf. Appears stated age. A & O 3. HEENT: Wearing glasses. CARDIOVASCULAR: RRR. S1, S2 auscultated. No elevated JVP. 2+ radial pulses b/l. LUNGS: Diminished breath sounds posteriorly with diminshed tidal volume. Poor respiratory effort. Intermittent basal expiratory wheezes. ABDOMEN: Distended with right upper quadrant and suprapubic tenderness. Normoactive BS present. No guarding or rigidity appreciated. EXTREMITIES: B/l LE 2-3+ pitting edema with associated erythema, increased skin tension with signs of chronic fluid retention (hyperkeratotic regions, flaky skin) NEUROLOGICAL: Deaf. Responded appropriately to questions & commands through video instructor industrial design. Signs of limited intelligence. PSYCHIATRIC: Mood and affect appear appropriate. LABORATORY DATA: Please see below. IMAGING: Abdominal x-ray, 02/14/20: Nonspecific intestinal gas pattern. Organ silhouettes insofar as delineate are unremarkable. No evidence of free intraperitoneal air. The stool pattern appears to be within normal limits. CT abdomen/pelvis with IV contrast only, 02/14/20: No acute findings (no evidence of intestinal obstruction with signs consistent of fatty liver infiltration) MICROBIOLOGY: Please see below. ASSESSMENT & PLAN: This is an 79-year-old deaf male with hypertension, peripheral arterial disease, sleep apnea, hypercholesterolemia, history of melanoma, former smoker with 135 pack year history who presented with chief complaint of constipation and associated abdominal bloating and was found to be hypokalemic with acute renal failure. #Acute renal failure -sCr 1.4 (BL about 1), BUN 42 -likely 2/2 dehydration/recent poor PO intake -KCl/NaCl IV running -renal u/s ordered -am metabolic panel and ulytes ordered -avoid nephrotoxic agents #Hypokalemia -initial sK 2.8, Mg 2.6 -IV 40mEq KCL in NS, 40 mEq PO KCl ordered -am metabolic panel ordered #Constipation -KUB showed stool pattern wnl -osmotic laxative (Milk of Mag), Senna, and docusate ordered -ASHLEE was unremarkable with negative hemoccult #Peripheral arterial disease, status post bilateral lower extremity balloon angioplasties -c/w home ASA and clopidogrel -recent angiogram/angioplasty procedures performed by Dr. Ortiz in Aug/Sep 2019 -c/w home metolazone #Hypercholesterolemia -c/w home statin medication #Sleep apnea -has not used CPAP in 6-7 years; in process of getting re-fitted for mask #Fatty infiltration of liver on imaging -consider RUQ u/s #Deafness #Morbid obesity, BMI 38.4 -significantly complicates care -has poor baseline mobility limiting activity; ambulates with assistance of walker #DVT prophylaxis: Heparin SC q12h Disposition: Possible discharge 1-2 days pending resolution of constipation, hypokalemia, and acute renal failure Vital Signs Vital Signs Date Time Temp Pulse Resp B/P (MAP) Pulse Ox O2 Delivery O2 Flow Rate FiO2 02/14/20 20:49 96.5 67 16 139/63 (88) Room Air 96 02/14/20 16:03 94 Laboratory Data Labs 24H Laboratory Tests 2 02/14/20 18:06: Immature Granulocyte % (Auto) 0.4, Neutrophils (%) (Auto) 65.8, Lymphocytes (%) (Auto) 17.8L, Monocytes (%) (Auto) 12.0H, Eosinophils (%) (Auto) 3.2H, Basophils (%) (Auto) 0.8, Neutrophils # (Auto) 5.6, Lymphocytes # (Auto) 1.5, Monocytes # (Auto) 1.0H, Eosinophils # (Auto) 0.3, Basophils # (Auto) 0.1, Nucleated Red Blood Cells % (auto) 0.0, Magnesium Level 2.6H, Total Bilirubin 1.1H, Direct Bilirubin 0.2, Aspartate Amino Transf (AST/SGOT) 30, Alanine Aminotransferase (ALT/SGPT) 37, Alkaline Phosphatase 110, Total Protein 8.3H, Albumin 4.0, Albumin/Globulin Ratio 0.93L, Lipase 266 02/14/20 18:21: POC Glucose (Misc Panel) 133H, POC Sodium (Misc Panel) 138, POC Potassium (Misc Panel) 2.8*L, POC Chloride (Misc Panel) 92L, POC Total CO2 (Misc Panel) 38.0H, POC Blood Urea Nitrogen (Misc Panel 42H, POC Ionized Calcium (Misc Panel) 3.7L, POC Creatinine (Misc Panel) 1.4H, POC Hematocrit (Misc Panel) 46.0 02/14/20 18:51: Lactic Acid Level 1.3 CBC/BMP Laboratory Tests 02/14/20 18:06 Microbiology Microbiology 02/14/20 Blood Culture, Received Pending 02/14/20 Blood Culture, Received Pending Home Medications Scheduled Allopurinol (Allopurinol) 100 Mg Tab, 100 MG PO DAILY Aspirin (Aspirin) 81 Mg Tab.chew, 81 MG PO DAILY Atenolol (Atenolol) 25 Mg Tablet, 25 MG PO DAILY Clopidogrel Bisulfate (Clopidogrel) 75 Mg Tablet, 75 MG PO DAILY Furosemide (Furosemide) 80 Mg Tablet, 80 MG PO DAILY Latanoprost (Xalatan) 0.005% 2.5ML Drops, 1 DROP OU QHS Lisinopril (Lisinopril) 5 Mg Tablet, 1 TAB PO DAILY Potassium Chloride (Potassium Chloride) 20 Meq Tab.er.prt, 20 MEQ PO BID Pravastatin Sodium (Pravastatin Sodium) 40 Mg Tablet, 40 MG PO DAILY Scheduled PRN Albuterol Sulfate (Ventolin Hfa) 18 Gm Hfa.aer.ad, 2 PUFFS INH Q6HP PRN for DYSPNEA Docusate Sodium (Docusate Sodium) 100 Mg Capsule, 100 MG PO BID PRN for CONSTIPATION use for 2 days as scheduled, and change to prn once bowel movement well. Hold if watery stools. Magnesium Hydroxide (Milk of Magnesia) 400 Mg/5 Ml Oral.susp, 30 ML PO DAILY PRN for CONSTIPATION Allergies Coded Allergies: No Known Allergies (Verified , 03/25/18) A-FIB/CHADSVASC A-FIB History Current/History of A-Fib/PAF?: No Current PO Anticoag Therapy: No (receiving SC heparin for DVT prophylaxis) GME ATTESTATION GME ATTESTATION My faculty preceptor for this patient encounter was physically present during the encounter and was fully available. All aspects of the patient interview, examination, medical decision making process, and medical care plan development were reviewed and approved by the faculty preceptor. The faculty preceptor is a amaya and concurs with the plan as stated in the body of this note and will attest to such by his/her cosignature. ATTENDING NOTE Pls see my addendum dated 02/14/20 for for my assessment & plan. TEAGAN CONROY D.O. February 14, 2020 22:57 LUCINDA SALGADO MD February 16, 2020 22:56
[2020-02-14 23:06] VITALS: BP 159/61
--- NOTE | 2020-02-14 23:32 | IPNPDOC ---
Text Note Date of Service The patient was seen on 02/14/20. 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 1 CHERI 2/2 vomiting - IVF / f/u renal US / hold lasix, metolazone and allopurinol 2 Nausea and vomiting 2/2 constipation - stool softeners /Zofran / IVF 3 Hypokalemia 2/2 vomiting - replete K and f/u Mag 4 Metabolic alkalosis 2/2 vomiting - f/u BMP & IVF 5 Obesity - f/u A1C 6. Chronic HTN - resume home meds except metolazine & lasix 7. Dyslipidemi - resume home meds 8. COPD - resume home meds rest per 's H&P VS,Fishbone, I+O VS, Jarettbone, I+O Laboratory Tests 02/14/20 18:06 Vital Signs Date Time Temp Pulse Resp B/P (MAP) Pulse Ox O2 Delivery O2 Flow Rate FiO2 02/14/20 23:06 97.8 62 19 159/61 (93) 93 Room Air 02/14/20 20:49 96 LUCINDA SALGADO MD February 14, 2020 23:32
[2020-02-14] MEDS ORDERED: MOM 30ML SUSPENSION UDC PO PRN (23:45)
[2020-02-15] MEDS ORDERED: BISACODYL 5 MG TAB PO ONE (00:15)
[2020-02-15] MEDS: KCL 40MEQ in NS 1000ML 1,000 ML IV SCH ×3 (00:22→07:42)
[2020-02-15] MEDS: DOCUSATE SODIUM 100 MG CAP PO SCH ×2 (00:22→08:59)
[2020-02-15] MEDS ORDERED: ALBUTEROL 90 MCG/ACT 8GM HFA INHALER INH PRN (00:30)
[2020-02-15] MEDS ORDERED: POTASSIUM CHLORIDE 10 MEQ SR TABLET PO ONE ×2 (01:30→08:15)
[2020-02-15] MEDS ORDERED: NS 1,000 ML IV SCH (03:15)
--- NOTE | 2020-02-15 04:43 | REPVR ---
PROCEDURE INFORMATION: Exam: US Retroperitoneal Limited, Kidneys Exam date and time: 02/15/2020 4:31 AM Age: 79 years old Clinical indication: Abnormal findings; Abnormal lab test; Abnormal kidney function lab tests; Additional info: Poncho TECHNIQUE: Imaging protocol: Real-time ultrasound of the retroperitoneum with image documentation. Examination was focused on the kidneys. COMPARISON: CT ABD/PEL W/IV CONTRAST ONLY 2020-02-14 19:12 FINDINGS: Right kidney: No stones. No hydronephrosis. Left kidney: No stones. No hydronephrosis. IMPRESSION: No acute findings. Electronically signed by: Arnol Hamilton On 02/15/2020 04:43:29 AM
[2020-02-15 06:00] VITALS: BP 149/84
[2020-02-15 06:29] LABS: HEMATOCRIT 39.3 % (42.0-52.0); HEMOGLOBIN 13.6 g/dl (13.5-17.5); MEAN CORPUSCULAR HEMOGLOBIN 31.3 pg (27.0-33.0); MEAN CORPUSCULAR HGB CONC 34.6 g/dl (32.0-36.5); MEAN CORPUSCULAR VOLUME 90.3 fl (80.0-96.0); PLATELET COUNT, AUTOMATED 227 10^3/uL (150-450); RED BLOOD COUNT 4.35 10^6/uL (4.30-6.10); WHITE BLOOD COUNT 7.8 10^3/uL (4.0-10.0)
[2020-02-15 06:55] LABS: ALBUMIN 3.5 GM/DL (3.2-5.2); ALT/SGPT 30 U/L (12-78); BILIRUBIN,TOTAL 1.2 MG/DL (0.2-1.0); BLOOD UREA NITROGEN 30 MG/DL (7-18); CALCIUM LEVEL 8.9 MG/DL (8.8-10.2); CARBON DIOXIDE LEVEL 36 MEQ/L (21-32); CHLORIDE LEVEL 99 MEQ/L (98-107); CREATININE FOR GFR 1.23 MG/DL (0.70-1.30); GLOMERULAR FILTRATION RATE > 60.0 (>35); GLUCOSE, FASTING 128 MG/DL (70-100); MAGNESIUM LEVEL 2.5 MG/DL (1.8-2.4); SODIUM LEVEL 142 MEQ/L (136-145); TOTAL PROTEIN 7.2 GM/DL (6.4-8.2)
[2020-02-15 07:02] LABS: HEMOGLOBIN A1c 7.1 %
[2020-02-15 08:59] VITALS: BP 149/84
[2020-02-15] MEDS ORDERED: ASPIRIN 81 MG CHEW TABLET PO SCH (09:00)
[2020-02-15] MEDS ORDERED: PRAVASTATIN 20 MG TAB PO SCH (09:00)
[2020-02-15] MEDS ORDERED: FUROSEMIDE 80 MG TAB PO SCH (09:00)
[2020-02-15] MEDS ORDERED: metOLazone 5 MG TAB PO SCH (09:00)
[2020-02-15] MEDS ORDERED: HEPARIN SOD (PORCINE) 5000UNITS/ML VIAL (J1644 PER 1000UNITS) SQ SCH (09:00)
[2020-02-15] MEDS ORDERED: allopurinoL 100 MG TAB PO SCH (09:00)
[2020-02-15] MEDS ORDERED: atenoloL 25 MG TAB PO SCH (09:00)
[2020-02-15] MEDS ORDERED: CLOPIDOGREL 75 MG TAB PO SCH (09:00)
[2020-02-15 09:53] LABS: APPEARANCE, URINE CLEAR (CLEAR); BACTERIA, URINE AUTO NEGATIVE (NEGATIVE); BILIRUBIN, URINE AUTO NEGATIVE (NEGATIVE); BLOOD, URINE BLOOD NEGATIVE (NEGATIVE); COLOR, URINE YELLOW (YELLOW); GLUCOSE, URINE (UA) AUTO NEGATIVE (NEGATIVE); KETONE, URINE AUTO NEGATIVE (NEGATIVE); LEUKOCYTE ESTERASE, URINE AUTO NEGATIVE (NEGATIVE); NITRITE, URINE AUTO NEGATIVE (NEGATIVE); PROTEIN, URINE AUTO NEGATIVE (NEGATIVE); RBC, URINE AUTO 1 /HPF (0-3); SPECIFIC GRAVITY URINE AUTO 1.021 (1.002-1.035); SQUAMOUS EPITHELIAL CELL UR AU 0 /HPF (0-6); UROBILINOGEN, URINE AUTO 0.2 mg/dL (0.0-2.0); WBC, URINE AUTO 1 /HPF (0-3)
[2020-02-15 10:12] LABS: CREATININE,RANDOM URINE 71.2 MG/DL
--- NOTE | 2020-02-15 12:38 | DS.PDOC ---
Discharge Summary General Date of Admission February 14, 2020 at 20:43 Date of Discharge 02/15/20 Discharge Summary PROCEDURES PERFORMED DURING STAY: None. ADMITTING DIAGNOSES: 1.Poncho Constipation Hypokalemia Vomiting. DISCHARGE DIAGNOSES: 1. Hypokalemia, likely secondary to indication induced, constipation, resolved PONCHO COMPLICATIONS/CHIEF COMPLAINT: Poncho Constipation Hypokalemia Vomiting. 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 Pt was recently started on metolazone. Patient's hospital course was uneventful. He had a bowel movement during hospitalization. On day of discharge, potassium was 3.0, replaced. Patient was instructed to continue home meds but hold metolazone, and will be started on lisinopril 10 mg daily, continue home potassium and Lasix. Lasix, likely secondary to lower extremity swelling which she has been taking since 2011, will not hold medication at this time. PONCHO resolved. Discharge home bowel regimen. Patient is to follow-up with PCP in 1 week. No other changes to home medications. DISCHARGE MEDICATIONS: Please see below. ALLERGIES: Please see below. PHYSICAL EXAMINATION ON DISCHARGE: PHYSICAL EXAMINATION: VITAL SIGNS: Please see below. GENERAL: No distress, pleasant HEENT: Normocephalic, atraumatic, moist mucous membranes NECK: Supple CARDIOVASCULAR EXAMINATION: S1, S2 RESPIRATORY EXAMINATION: [CTAB] ABDOMINAL EXAMINATION: nontender, nondistended, positive bowel sounds EXTREMITIES: + edema SKIN: No rash NEUROLOGICAL EXAMINATION: awake PSYCHIATRIC EXAMINATION: Calm and cooperative, appropriate affect LABORATORY DATA: Please see below. ACTIVITY: As tolerated. DIET: cardiac DISCHARGE PLAN: see above DISPOSITION: . DISCHARGE CONDITION: Stable. TIME SPENT ON DISCHARGE: 32 minutes were spent on care coordination. Vital Signs/I&Os Vital Signs Date Time Temp Pulse Resp B/P (MAP) Pulse Ox O2 Delivery O2 Flow Rate FiO2 02/15/20 08:59 70 149/84 02/15/20 06:00 97.8 18 91 Room Air 02/14/20 20:49 96 I&O- Last 24 Hours up to 6 AM 02/15/20 05:59 Intake Total 1708 ml Output Total 400 ml Balance 1308 ml Laboratory Data Labs 24H Laboratory Tests 2 02/14/20 18:06: Immature Granulocyte % (Auto) 0.4, Neutrophils (%) (Auto) 65.8, Lymphocytes (%) (Auto) 17.8L, Monocytes (%) (Auto) 12.0H, Eosinophils (%) (Auto) 3.2H, Basophils (%) (Auto) 0.8, Neutrophils # (Auto) 5.6, Lymphocytes # (Auto) 1.5, Monocytes # (Auto) 1.0H, Eosinophils # (Auto) 0.3, Basophils # (Auto) 0.1, Nucleated Red Blood Cells % (auto) 0.0, Magnesium Level 2.6H, Total Bilirubin 1.1H, Direct B ilirubin 0.2, Aspartate Amino Transf (AST/SGOT) 30, Alanine Aminotransferase (ALT/SGPT) 37, Alkaline Phosphatase 110, Total Protein 8.3H, Albumin 4.0, Albumin/Globulin Ratio 0.93L, Lipase 266 02/14/20 18:21: POC Glucose (Misc Panel) 133H, POC Sodium (Misc Panel) 138, POC Potassium (Misc Panel) 2.8*L, POC Chloride (Misc Panel) 92L, POC Total CO2 (Misc Panel) 38.0H, POC Blood Urea Nitrogen (Misc Panel 42H, POC Ionized Calcium (Misc Panel) 3.7L, POC Creatinine (Misc Panel) 1.4H, POC Hematocrit (Misc Panel) 46.0 02/14/20 18:51: Lactic Acid Level 1.3 02/15/20 05:52: Nucleated Red Blood Cells % (auto) 0.0, Magnesium Level 2.5H, Total Bilirubin 1.2H, Aspartate Amino Transf (AST/SGOT) 27, Alanine Aminotransferase (ALT/SGPT) 30, Alkaline Phosphatase 91, Total Protein 7.2, Albumin 3.5, Albumin/Globulin Ratio 0.95L, Anion Gap 7L, Glomerular Filtration Rate > 60.0, Estimated Mean Plasma Glucose 157H, Hemoglobin A1c 7.1, Calcium Level 8.9 02/15/20 09:35: Urine Color YELLOW, Urine Appearance CLEAR, Urine pH 6.0, Urine Specific [place] 1.021, Urine Protein NEGATIVE, Urine Glucose (Auto)(UA) NEGATIVE, Urine Ketones (Auto) NEGATIVE, Urine Blood NEGATIVE, Urine Nitrite NEGATIVE, Urine Bilirubin NEGATIVE, Urine Urobilinogen 0.2, Urine Leukocyte Esterase (Auto) NEGATIVE, Urine WBC (Auto) 1, Urine RBC (Auto) 1, Urine Hyaline Casts (Auto) 0, Urine Bacteria (Auto) NEGATIVE, Urine Squamous Epithelial Cells 0, Urine Sperm (Auto) 02/15/20 09:36: Urine Random Creatinine 71.2, Urine Random Sodium 68, Urine Random Urea Nitrogen 629 CBC/BMP Laboratory Tests 02/14/20 18:06 02/15/20 05:52 Microbiology Microbiology 02/14/20 Stool Occult Blood (LILI) - Final, Complete 02/14/20 Blood Culture, Received Pending 02/14/20 Blood Culture, Received Pending Discharge Medications Scheduled Allopurinol (Allopurinol) 100 Mg Tab, 100 MG PO DAILY, (Reported) Aspirin (Aspirin) 81 Mg Tab.chew, 81 MG PO DAILY, (Reported) Atenolol (Atenolol) 25 Mg Tablet, 25 MG PO DAILY, (Reported) Clopidogrel Bisulfate (Clopidogrel) 75 Mg Tablet, 75 MG PO DAILY, (Reported) Furosemide (Furosemide) 80 Mg Tablet, 80 MG PO DAILY, (Reported) Latanoprost (Xalatan) 0.005% 2.5ML Drops, 1 DROP OU QHS, (Reported) Metolazone (Metolazone) 5 Mg Tablet, 5 MG PO DAILY, (Reported) Potassium Chloride (Potassium Chloride) 20 Meq Tab.er.prt, 20 MEQ PO BID, (Reported) Pravastatin Sodium (Pravastatin Sodium) 40 Mg Tablet, 40 MG PO DAILY, (Reported) Scheduled PRN Albuterol Sulfate (Ventolin Hfa) 18 Gm Hfa.aer.ad, 2 PUFFS INH Q6HP PRN for DYSPNEA, (Reported) Allergies Coded Allergies: No Known Allergies (Verified , 03/25/18) ORB ERIC MD February 15, 2020 12:38
[2020-02-15] MEDS ORDERED: DOCU100C16 PO (12:48)
[2020-02-15] MEDS ORDERED: LISI-542 PO (12:48)
[2020-02-15] MEDS ORDERED: MOM30SS2 PO (12:48)
[2020-02-15] MEDS ORDERED: LATANOPROST 0.005% OPHTH SOLN 2.5 ML OU SCH (21:00)
== END 2020-02-15 14:59 | disposition home or self-care (01) | DRG 392 ==
LOC: M ED 16:03 → M ED INP 20:43 → ENRESERV 21:52 → M MSPAV 23:05
PROVIDERS: ADMIT Internal Medicine; ATTEND Family Medicine
DX: K59.00 Constipation, unspecified (principal); N17.9 Acute kidney failure, unspecified; E87.2 Acidosis; E87.6 Hypokalemia; K76.0 Fatty (change of) liver, not elsewhere classified; H91.90 Unspecified hearing loss, unspecified ear; I10 Essential (primary) hypertension; E78.5 Hyperlipidemia, unspecified; J44.9 Chronic obstructive pulmonary disease, unspecified; Z79.899 Other long term (current) drug therapy; I73.9 Peripheral vascular disease, unspecified; Z87.891 Personal history of nicotine dependence; Z85.820 Personal history of malignant melanoma of skin; Z79.82 Long term (current) use of aspirin; E66.9 Obesity, unspecified

== ENCOUNTER → 2020-02-25 | Outpatient (REF) | payer MEDICARE, OTHER ==
[~2020-02-25] MED LIST changes: +ASPI81CH17 PO; +ATEN25TA PO; +DOCU100C16 PO; +FURO80TA2 PO; +LISI-542 PO; +METO5TA PO; +MOM30SS2 PO; +POTA20TA6 PO; +PRAV40TA2 PO; +VENTAER INH; +XALA0.007 OU
[2020-02-25 13:27] LABS: CREATININE FOR GFR 1.44 MG/DL (0.70-1.30); GLOMERULAR FILTRATION RATE 50.2 (>35); POTASSIUM SERUM 3.7 MEQ/L (3.5-5.1)
[2020-02-25 14:24] LABS: CREATININE, URINE 63.8 MG/DL; MALB URINE SIEMENS 10.9 MG/L
[2020-02-25 14:36] LABS: HEMOGLOBIN A1c 7.7 %
[2020-02-25 15:40] LABS: HEMATOCRIT 39.8 % (42.0-52.0); HEMOGLOBIN 12.8 g/dl (13.5-17.5); MEAN CORPUSCULAR HEMOGLOBIN 30.3 pg (27.0-33.0); MEAN CORPUSCULAR HGB CONC 32.2 g/dl (32.0-36.5); MEAN CORPUSCULAR VOLUME 94.3 fl (80.0-96.0); PLATELET COUNT, AUTOMATED 221 10^3/uL (150-450); RED BLOOD COUNT 4.22 10^6/uL (4.30-6.10); WHITE BLOOD COUNT 5.8 10^3/uL (4.0-10.0)
== END ==
LOC: M SFHCPLAZ 08:35
PROVIDERS: ATTEND Family Medicine
DX: R09.02 Hypoxemia (principal); N17.9 Acute kidney failure, unspecified; E11.9 Type 2 diabetes mellitus without complications
CPT/HCPCS: 80048; 82043; 83036; 85027; G0463

== ENCOUNTER → 2020-03-12 | Outpatient (CLI) | payer MEDICARE, OTHER ==
--- NOTE | 2020-03-20 11:08 | SLEEPCENT ---
DATE OF STUDY: 03/12/2020 ORDERED BY: Marilin Chaves Nocturnal polysomnography was performed for the titration of pressure therapy in this patient with severe obstructive sleep apnea syndrome and apnea-hypopnea index of 76.1. For testing, a ResMed F20 Air Fit full face mask of large size was used and 4 cm of water pressure were applied to the circuit and the lights were extinguished. 7 hours and 29 minutes of data were reviewed. There were 296 minutes of sleep identified. Sleep latency was short at 7.5 minutes. REM latency was short at 82 minutes. Sleep architecture showed some fragmentation later in the study. There were 3 REM cycles noted. Overall sleep efficiency was good at 66.2%. The patient's electrocardiogram showed a sinus rhythm with an average heart rate of 50 beats per minute. Electroencephalogram (EEG) showed normal waveforms for awake and sleep. Persistence of respiratory events prompted an increase in C-PAP pressure and despite optimal mask fit and minimal air leak the patient required a change to a bilevel device due to emergence of central events. Best sleep was appreciated on a bilevel pressure of inspiratory 14 over expiratory of 9. This was late in the study. However, there were no obstructive events at this pressure and oxygen saturation were borderline acceptable at 89%. IMPRESSION: Severe obstructive sleep apnea syndrome (G47.33). RECOMMENDATION: Initiation of pressure therapy with a bilevel device inspiratory 14 over expiratory of 9 would seem appropriate based on the test results. Close clinical followup will be necessary given the severity of the patient's condition.
== END ==
LOC: M SLEEP 20:00
PROVIDERS: ATTEND Nurse Practitioner Family
DX: G47.33 Obstructive sleep apnea (adult) (pediatric) (principal)

== ENCOUNTER → 2020-03-27 | Outpatient (CLI) | payer MEDICARE, OTHER ==
[2020-03-27 10:50] LABS: CREATININE FOR GFR 1.27 MG/DL (0.70-1.30); GLOMERULAR FILTRATION RATE 58.1 (>35); POTASSIUM SERUM 3.5 MEQ/L (3.5-5.1)
== END ==
LOC: M WUC 08:30
PROVIDERS: ATTEND Obstetrics & Gynecology
DX: N17.9 Acute kidney failure, unspecified (principal); I10 Essential (primary) hypertension

== ENCOUNTER → 2020-06-12 | Outpatient (CLI) | payer MEDICARE, OTHER ==
--- NOTE | 2020-07-10 07:38 | REP ---
BILATERAL LOWER EXTREMITY ARTERIAL ULTRASOUND HISTORY: Atherosclerotic disease. FINDINGS: Real-time sonographic evaluation and duplex Doppler interrogation of bilateral lower extremity arterial systems is performed. This was extremely limited secondary to significant edema of the soft tissues of the lower extremities as well as skin thickening. Note is made of very slow flow in the right lower extremity from the mid aspect of the superficial femoral artery and distal to that. Right anterior tibial artery could not be seen proximally, but there is likely some trickle flow more distally in the anterior tibial artery. On the left, there are very slow velocities seen in the popliteal artery. Anterior tibial artery could not be visualized, either due to occlusion or obscuration due to the soft tissue edema. On the right, triphasic waveforms are noted in the common femoral artery and biphasic waveforms in the profunda. Arteries distal to that demonstrate monophasic waveforms. Arteries of the left lower extremity demonstrate diffuse monophasic waveforms. PEAK SYSTOLIC VELOCITY RIGHT cm/s LEFT cm/s Femoral artery 153 145 Profunda 123 107 Proximal SFA 201 71 Mid SFA 39 94 Distal SFA 19 Not seen Popliteal 23 29 Proximal CHRISTOPHE Not seen Not seen Tibioperoneal trunk Not seen Not seen Proximal CULTURE ROOM WORKER 16 Not seen Distal CULTURE ROOM WORKER 16 18 Distal CHRISTOPHE 13 Not seen MTDD
== END ==
LOC: M RAD 12:52
PROVIDERS: ATTEND Physician Assistant
DX: I70.213 Atherosclerosis of native arteries of extremities with intermittent claudication, bilateral legs (principal)

== ENCOUNTER → 2020-07-26 | Outpatient (REF) | payer MEDICARE, OTHER ==
[2020-07-26 13:49] LABS: HEMATOCRIT 41.4 % (42.0-52.0); HEMOGLOBIN 13.5 g/dl (13.5-17.5); MEAN CORPUSCULAR HEMOGLOBIN 30.1 pg (27.0-33.0); MEAN CORPUSCULAR HGB CONC 32.6 g/dl (32.0-36.5); MEAN CORPUSCULAR VOLUME 92.4 fl (80.0-96.0); PLATELET COUNT, AUTOMATED 241 10^3/uL (150-450); RED BLOOD COUNT 4.48 10^6/uL (4.30-6.10); WHITE BLOOD COUNT 7.2 10^3/uL (4.0-10.0)
[2020-07-26 14:19] LABS: CHOLESTEROL RISK RATIO 3.134 (<5)
[2020-07-26 14:40] LABS: HEMOGLOBIN A1c 6.3 %
== END ==
LOC: M SFHCPLAZ 09:52
PROVIDERS: ATTEND Family Medicine
DX: I73.9 Peripheral vascular disease, unspecified (principal); E78.00 Pure hypercholesterolemia, unspecified; E11.51 Type 2 diabetes mellitus with diabetic peripheral angiopathy without gangrene; I87.2 Venous insufficiency (chronic) (peripheral)

== ENCOUNTER → 2020-07-26 | Outpatient (CLI) | payer MEDICARE, OTHER ==
--- NOTE | 2020-07-31 12:00 | REPPI ---
RIGHT WRIST SERIES: 07/26/20 CLINICAL: Arthritis. TECHNIQUE: PA and lateral views of the right wrist. FINDINGS: Moderate bernard carpal osteoarthritic degenerative changes through the wrist are noted including increased sclerosis along the radial surface and decreased radiocarpal joint space as well as subtle subchondral cystic changes and more pronounced cortical irregularities and sclerosis at the level of the first and second carpal metacarpal joints. No evidence for acute fracture or dislocation. Vascular calcifications noted. 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 MTDD
== END ==
LOC: M PLAIMG 09:56
PROVIDERS: ATTEND Student in an Organized Health Care Education/Training Program
DX: M19.031 Primary osteoarthritis, right wrist (principal); I73.9 Peripheral vascular disease, unspecified; E78.00 Pure hypercholesterolemia, unspecified; E11.51 Type 2 diabetes mellitus with diabetic peripheral angiopathy without gangrene; I87.2 Venous insufficiency (chronic) (peripheral)

== ENCOUNTER → 2020-08-02 | Outpatient (CLI) | payer MEDICARE, OTHER ==
--- NOTE | 2020-08-02 11:23 | REP ---
INDICATION: M79.604,M79.605BIL LEG PAIN,R/O DVT COMPARISON: None. TECHNIQUE: Kahn scale and color Doppler evaluation of the bilateral lower extremities using linear high frequency transducer. FINDINGS: Examination is somewhat limited due to body habitus and associated technical factors. No evidence for occlusive thrombus in the bilateral common femoral veins, superficial femoral veins, or popliteal veins identified. IMPRESSION: Limited examination. No evidence for occlusive thrombus within the bilateral lower extremity deep venous systems. <Electronically signed by Xavier Maradiaga > 08/02/20 [id number]
== END ==
LOC: M WHC 09:35
PROVIDERS: ATTEND Student in an Organized Health Care Education/Training Program
DX: I73.9 Peripheral vascular disease, unspecified (principal)

== ENCOUNTER → 2020-09-05 | Outpatient (REF) | payer MEDICARE, OTHER | LOC: M LAB REF 13:55 | PROVIDERS: ATTEND Dermatology | DX: L82.0 Inflamed seborrheic keratosis (principal) | CPT/HCPCS: 11102; 17000; 88305; G0463 ==

== ENCOUNTER → 2020-09-22 | Outpatient (CLI) | payer MEDICARE, OTHER ==
--- NOTE | 2020-09-22 13:24 | REP ---
INDICATION: NON PRESSURE ULCER RIGHT AND LEFT FOOT. Rule out reflux. COMPARISON: None. TECHNIQUE: Bilateral lower extremity duplex venous scanning with reflux evaluation. FINDINGS: The deep veins are anechoic and fully compressible from the groin to the popliteal fossa in the right and left lower extremity. Color flow imaging is homogeneous. Spectral Doppler interrogation demonstrates intact respiratory variation in flow and normal manual augmentation of flow. There is no evidence of deep vein thrombosis. Reflux evaluation: Reflux greater than 0.5 seconds in duration is observed in the right common femoral and in the distal femoral vein in the deep system. Reflux was observed with patient standing in the proximal greater saphenous vein. Flow is seen from posterior communicator vein entering into the greater saphenous vein producing reflux. Reflux duration is 6.75 seconds in the mid greater saphenous vein and 4.65 seconds in the greater saphenous vein at the knee. The greater saphenous vein on the right measures 4.6 mm in greatest diameter proximally, 6.7 mm at mid thigh, and 5.3 mm at the knee. The lesser saphenous vein is 3 mm without visible reflux. Reflux greater than 0.5 seconds in duration is seen throughout the deep system on the left side. With standing there is superficial system reflux involving the entire greater saphenous vein and in the lesser saphenous vein. Greater saphenous vein reflux duration is 2.35 seconds proximally, 3.89 seconds at mid thigh, and 2.7 seconds at the knee. 1.2nd duration reflux is seen in the lesser saphenous vein. The greater saphenous vein measures 6.7 mm proximally, 6.3 mm at mid thigh, 6.5 mm at the knee. The lesser saphenous vein diameter is 2.6 mm. IMPRESSION: There is no evidence of deep vein thrombosis on either side. There is bilateral reflux as above left more so than right.. <Electronically signed by Idris Espinoza > 09/22/20 [id number]
== END ==
LOC: M RAD 10:08
PROVIDERS: ATTEND Surgery
DX: L97.812 Non-pressure chronic ulcer of other part of right lower leg with fat layer exposed (principal); L97.822 Non-pressure chronic ulcer of other part of left lower leg with fat layer exposed; M79.604 Pain in right leg

== ENCOUNTER → 2020-10-16 | Outpatient (CLI) | payer MEDICARE, OTHER ==
--- NOTE | 2020-10-16 14:31 | REP ---
INDICATION: ATHSCL [facility] TAMARA HUSSEIN LEGS COMPARISON: 06/12/2020 TECHNIQUE: Real time kahn scale and color Doppler evaluation of the bilateral lower extremity arterial vasculature using linear high frequency transducer. FINDINGS: Kahn scale and color images again demonstrate significant bilateral subcutaneous edema and severe mixed atheromatous plaquing with scattered areas of visible narrowing. The right lower extremity again demonstrates monophasic wave patterns with high velocity to the level of the mid superficial femoral artery followed by significantly decreased velocities distally. A popliteal stent is identified with a narrowed lumen and findings are not significantly changed from prior examination. The left lower extremity again demonstrates monophasic wave patterns with high velocity to the level of the distal superficial femoral artery followed by significantly decreased velocity beginning at the level of the popliteal artery and extending distally highly suggestive of high-grade stenosis. Stent identified in the mid superficial femoral artery with a narrowed lumen. Current examination now demonstrates flow in the distal anterior tibial artery which was previously not identified and may represent minimal improvement. Peak systolic velocities (cm/sec) Common femoral artery: Right 162; Left 172 Profunda femoris: Right 193; Left 123 SFA (proximal): Right 111; Left 98-109 SFA (mid): Right 88-35; Left 143-127 SFA (distal): Right 54; Left 206 Popliteal artery: Right 34; Left 18 CHRISTOPHE (prox.): Right not identified; Left 39 Tibioperoneal trunk: Right not identified; Left not identified SECURE SOFTWARE ASSESSOR (prox.): Right non identified; Left 22 SECURE SOFTWARE ASSESSOR (distal): Right 22; Left 19 CHRISTOPHE (distal): Right 15; Left 22 IMPRESSION: Significant subcutaneous edema again limits evaluation. Severe bilateral mixed atherosclerotic disease with findings as described above. Suspicion for high-grade stenosis in the left distal SFA/popliteal artery. <Electronically signed by Xavier Maradiaga > 10/16/20 [id number]
== END ==
LOC: M RAD 12:49
PROVIDERS: ATTEND Physician Assistant
DX: I70.213 Atherosclerosis of native arteries of extremities with intermittent claudication, bilateral legs (principal)

== ENCOUNTER → 2020-11-03 | Outpatient (REF) | payer MEDICARE, OTHER ==
[~2020-11-03] MED LIST changes: +ASPI-281 PO; -ASPI81CH17 PO; -LISI-542 PO; +LISI-898 PO
[2020-11-03 16:01] LABS: HEMOGLOBIN A1c 6.1 %
[2020-11-03 16:12] LABS: CALCIUM LEVEL 9.4 MG/DL (8.8-10.2); CREATININE FOR GFR 1.3 MG/DL (0.70-1.30); GLOMERULAR FILTRATION RATE 56.4 (>35); POTASSIUM SERUM 4.1 MEQ/L (3.5-5.1)
== END ==
LOC: M SFHCPLAZ 13:22
PROVIDERS: ATTEND Family Medicine
DX: E11.9 Type 2 diabetes mellitus without complications (principal)
CPT/HCPCS: 36415; 80048; 83036; G0463

== ENCOUNTER → 2020-11-29 | Outpatient (CLI) | payer MEDICARE, OTHER ==
[~2020-11-29] MED LIST changes: +ACETAMINOPHEN TAB 650MG DOSE (2X325MG) PO PRN; +ISOVUE-300 61% 50ML VIAL As Ordered ONE; +LIDOCAINE 1% MDV 20ML VIAL As Ordered ONE; +MIDAZOLAM INJ 2MG/2ML VIAL (J2250 PER 1MG) As Ordered ONE; +ONDANSETRON 4MG/2ML VIAL IV PRN; +PERCOCET 5MG/325MG TAB As Ordered ONE; +fentaNYL 100 MCG/2 ML INJECTION (J3010) As Ordered ONE; +hydrALAZINE 20MG/ML 1ML VIAL (J0360 PER 20MG) As Ordered ONE; +hydrALAZINE 20MG/ML 1ML VIAL (J0360 PER 20MG) IV PRN
[2020-11-29 09:17] LABS: HEMATOCRIT 40.4 % (42.0-52.0); HEMOGLOBIN 13.3 g/dl (13.5-17.5); MEAN CORPUSCULAR HEMOGLOBIN 30.9 pg (27.0-33.0); MEAN CORPUSCULAR HGB CONC 32.9 g/dl (32.0-36.5); MEAN CORPUSCULAR VOLUME 93.7 fl (80.0-96.0); PLATELET COUNT, AUTOMATED 215 10^3/uL (150-450); RED BLOOD COUNT 4.31 10^6/uL (4.30-6.10); WHITE BLOOD COUNT 7.2 10^3/uL (4.0-10.0)
[2020-11-29 09:39] LABS: BLOOD UREA NITROGEN 13 MG/DL (7-18); CALCIUM LEVEL 9.2 MG/DL (8.8-10.2); CARBON DIOXIDE LEVEL 29 MEQ/L (21-32); CHLORIDE LEVEL 111 MEQ/L (98-107); CREATININE FOR GFR 1.13 MG/DL (0.70-1.30); GLOMERULAR FILTRATION RATE > 60.0 (>35); GLUCOSE, FASTING 116 MG/DL (70-100); POTASSIUM SERUM 4.3 MEQ/L (3.5-5.1); SODIUM LEVEL 145 MEQ/L (136-145)
--- NOTE | 2020-11-29 12:20 | ROOPDOC ---
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 Ultrasound-guided access right common femoral artery 2. Aortoiliofemoral arteriogram 3. Selection left common femoral and superficial femoral artery and left lower extremity arteriogram 4. Selection left popliteal artery and tibial runoff 5. Angioplasty left SFA and left popliteal artery with 5 x 200 Mizpah balloon 6. Stenting proximal popliteal artery and distal superficial femoral artery with two 6 x 40 Innova stents 7. Post-dilation stents with 5 x 200 Mizpah balloon 8. Completion arteriograms 9. Manual pressure right common femoral artery due to failure of Mynx closure device SURGEON: Dean Ortiz MD ANESTHESIA: Local anesthesia 11 mL lidocaine. Moderate intravenous conscious sedation was supervised by Dr. Ortiz. The patient was independently monitored by registered nurse assigned to the Department of radiology using automated blood pressure, EKG, and pulse oximetry. The detailed sedation record is permanently stored in the hospital information system. The following is a brief sedation record: Start time 10:32, stop time 12:09, Versed 2 mg IV, fentanyl 100 g IV, heparin 4000 units IV, hydralazine 30 mg IV. CONTRAST: 43 mL Isovue-300 INDICATION FOR PROCEDURE: This is a very pleasant 80-year-old gentleman with a long-standing history of severe bilateral lower extremity peripheral vascular disease who has nonhealing wounds of the left lower extremity and suspected restenosis of his left SFA stent and new arterial disease in the left popliteal artery. Risks benefits and alternatives to a repeat arteriogram with potential intervention were explained to the patient needs agreeable to proceed. Informed consent was obtained. INTERPRETATION: 1. The patient has tortuous iliac arteries, but the distal aorta, bilateral common iliac arteries, bilateral hypogastric arteries, and bilateral external iliac arteries are all widely patent. 2. The left common femoral artery is calcified but widely patent with good flow into the profunda which provides extensive long-standing collaterals to the popliteal artery and tibials below the knee. The SFA is patent through the pre- existing stents, but there is intimal hyperplasia and narrowing throughout the stents to Maikol's canal. The popliteal artery is also narrowed distal to the stents, and occludes for 1 cm segment with extensive collaterals providing reconstitution below the occlusion at the mid popliteal artery. The distal popliteal artery is diminutive but patent with good flow into the anterior tibial artery and posterior tibial artery and 2 vessel runoff to the foot. The peroneal artery occludes towards origin and does not reconstitute. 3. After angioplasty of the SFA and popliteal artery, there is still flow- limiting stenosis in the mid popliteal artery but dramatic improvement inflow through the stents and through the proximal SFA. No extravasation noted. 4. After extending the SFA stent Maikol's canal with a 6 x 40 Innova stent and post-dilating with a 5 x 200 Mizpah balloon, there was still an area distal to this that had some luminal irregularity, but dramatic improvement inflow was noted at the area of occlusion in the popliteal artery. We then extended the stent with another 6 x 40 Innova stent with a 1 cm overlap through the proximal popliteal artery. This was also postdilated in then there was rapid flow through to the tibials. On completion arteriograms, there was rapid 2 vessel runoff to the foot. No significant residual stenosis was noted. No extravasation or dissections were noted. REPORT OF OPERATION: Patient was brought to the angiographic suite in stable condition. His bilateral groins were prepped and draped in sterile fashion. A timeout was performed. Sedation was administered without complication. Local anesthesia was a manager psychology to the skin and subcutaneous tissue over the right common femoral artery. A microneedle was used to access the artery under ultrasound guidance. A wire was passed through this access needle was removed. A 4 Citizen [place] sheath was placed and flushed with saline. A Glidewire and flushing catheter were advanced into the distal aorta. Aortoiliofemoral arteriograms were performed. Please see interpretation above. We then went up and over the bifurcation with a Glidewire and the flushing catheter. We selected the left common femoral and superficial femoral artery and left lower extremity arteriograms were performed. Next, we advanced the wire into the distal SFA and exchanges sheath for a 6 x 45 cm destination sheath. The sheath was flushed with saline. We advanced the Glidewire to the distal popliteal artery and angioplastied the length of the popliteal artery and the superficial femoral artery with a 5 x 200 Mizpah balloon for three-minute inflations. Several three-minute inflations were performed. Following this, there was widely patent inflow through the SFA stents. There was improve flow through the origin of the SFA as well. Distal to the stents in the proximal popliteal artery, there was still flow-limiting stenosis at the area of occlusion and this was dramatically improved after stenting and post-dilating. Please see interpretation above. However, just distal to this there was still some luminal irregularity, and thus we elected to stent with another 6 x 40 Innova stent and post-dilate with a 5 x 200 balloon. Following this was rapid flow through the SFA and popliteal artery. Completion arteriograms by selecting the popliteal artery with a O35 glide cath showed widely patent flow through the anterior tibial and posterior tibial artery with rapid flow to the foot. We did not try to revascularize the peroneal artery, as the patient has excellent two-vessel runoff through the main tibial vessels. We exchanged the sheath over the wire for short 6 [place] sheath. We attempted to deploy a Mynx closure device, but the closure device failed and manual pressure was held instead. After 25 minutes of manual pressure, sterile dressings were applied and good hemostasis was noted. The patient was taken to recovery in stable condition. He tolerated the procedure and the sedation well. ESTIMATED BLOOD LOSS: Approximately 5 mL. COMPLICATIONS: None. PLAN: It is okay to resume home diet and medications. Plavix should resume tomorrow. No lifting greater than 5 pounds or strenuous exercise for 3 days. Okay to remove dressings and shower tomorrow. Follow-up in a week to check access site and perfusion. Continue with local wound care left lower extremity per managing physician's orders. We appreciate the opportunity to participate in the care of this patient. DEAN ORTIZ MD Nov 29, 2020 12:20
[2020-11-29] MEDS: PERCOCET 5MG/325MG TAB PO PRN ×2 (13:30→15:07)
[2020-11-29 16:20] VITALS: BP 113/56
== END ==
LOC: M IRPRO 08:24
PROVIDERS: ATTEND Surgery Vascular Surgery
DX: I70.249 Atherosclerosis of native arteries of left leg with ulceration of unspecified site (principal); L97.929 Non-pressure chronic ulcer of unspecified part of left lower leg with unspecified severity
CPT/HCPCS: 37226; 75630; 75774; 80048; 85027; 99152; 99153; C1725; C1769; C1876; C1887; C1894; J0360; J1644; J2250; J3010; Q9967

== ENCOUNTER → 2020-12-05 | Outpatient (CLI) | payer MEDICARE, OTHER ==
[~2020-12-05] MED LIST changes: -ACETAMINOPHEN TAB 650MG DOSE (2X325MG) PO PRN; -ISOVUE-300 61% 50ML VIAL As Ordered ONE; -LIDOCAINE 1% MDV 20ML VIAL As Ordered ONE; -MIDAZOLAM INJ 2MG/2ML VIAL (J2250 PER 1MG) As Ordered ONE; -ONDANSETRON 4MG/2ML VIAL IV PRN; -PERCOCET 5MG/325MG TAB As Ordered ONE; -fentaNYL 100 MCG/2 ML INJECTION (J3010) As Ordered ONE; -hydrALAZINE 20MG/ML 1ML VIAL (J0360 PER 20MG) As Ordered ONE; -hydrALAZINE 20MG/ML 1ML VIAL (J0360 PER 20MG) IV PRN
--- NOTE | 2020-12-05 17:55 | REPPI ---
INDICATION: [id number] ACUTE PAIN OF RIGHT KNEE. COMPARISON: No comparison right knee radiographs.. TECHNIQUE: Five views. FINDINGS: Five views of the right knee demonstrate a stent graft in place in the popliteal artery. Vascular calcifications noted. There is patellar and medial compartment joint space narrowing and spur formation consistent with osteoarthritis. Non articular spurring is seen at the superior pole the patella as well at the quadriceps tendon insertion. No fracture or subluxation is seen. No evidence of joint effusion noted.. . . IMPRESSION: Stent graft in place in the popliteal artery. Medial and patellofemoral compartment osteoarthritis. Superior pole patellar spurring. Vascular calcification. No acute bony abnormality.. <Electronically signed by Idris Espinoza > 12/05/20 [id number]
== END ==
LOC: M PLAIMG 14:55
PROVIDERS: ATTEND Student in an Organized Health Care Education/Training Program
DX: M17.11 Unilateral primary osteoarthritis, right knee (principal); M25.561 Pain in right knee; R53.83 Other fatigue

== ENCOUNTER → 2020-12-05 | Outpatient (REF) | payer MEDICARE, OTHER ==
[2020-12-05 17:19] LABS: HEMATOCRIT 39.8 % (42.0-52.0); HEMOGLOBIN 12.7 g/dl (13.5-17.5); MEAN CORPUSCULAR HGB CONC 31.9 g/dl (32.0-36.5); MEAN CORPUSCULAR VOLUME 93.9 fl (80.0-96.0); PLATELET COUNT, AUTOMATED 261 10^3/uL (150-450); RED BLOOD COUNT 4.24 10^6/uL (4.30-6.10); WHITE BLOOD COUNT 8.8 10^3/uL (4.0-10.0)
== END ==
LOC: M SFHCPLAZ 14:54
PROVIDERS: ATTEND Family Medicine
DX: R53.83 Other fatigue (principal)

== ENCOUNTER → 2020-12-22 | Outpatient (CLI) | payer MEDICARE, OTHER ==
--- NOTE | 2020-12-22 14:32 | REP ---
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 COMPARISON: Comparison prior study is from October 16, 2020. Patient is status post left femoral arterial angioplasty.. TECHNIQUE: Bilateral lower extremity arterial Doppler sonography. FINDINGS: Patient was unable to tolerate compression required for ankle brachial index determine a mann in both lower extremities. Peak systolic flow velocity in the abdominal aorta just above the bifurcation is normal at 97.2 centimeters/second. Triphasic waveforms are noted in the common and external iliac arteries bilaterally. Monophasic arterial Doppler waveforms are noted in both lower extremities from the common femoral artery level distally. Extensive plaquing is observed. In the right mid superficial femoral artery there is a 5.9-1 velocity ratio stenosis. The right lower extremity popliteal artery stent appears somewhat narrowed. Slow flow is observed in the anterior tibial part proximally and distally on the right. They and left lower extremity shows a patent superficial femoral artery to popliteal artery stent. Right lower extremity arterial Doppler velocity chart: Abdominal aorta PSV 97 cm/S Right common iliac artery PSV 145 cm/S Right EIA 130 MATERIAL STOCKKEEPER YARD 190 Profundal 95 Proximal SFA 178 Mid SFA 121/421 Distal SFA 251 Popliteal stent 52 Proximal CHRISTOPHE 34 Tibial-peroneal trunk 59 Proximal AUDIO VISUAL MANAGER 59 Distal AUDIO VISUAL MANAGER 28 Distal CHRISTOPHE 7 Left lower extremity arterial Doppler velocity chart: Abdominal aorta PSV 97 cm/S Left common iliac artery PSV 107 cm/S Left EIA PSV 112 cm/S MATERIAL STOCKKEEPER YARD 212 Profundal 90 Proximal SFA 223 Mid SFA 249 Distal SFA 213 Popliteal 136 Proximal CHRISTOPHE 121 Tibial-peroneal trunk 122 Proximal AUDIO VISUAL MANAGER 89 Distal AUDIO VISUAL MANAGER 91 Distal CHRISTOPHE 95 IMPRESSION: There is evidence of right mid SFA stenosis. Patent bilateral stents. Monophasic arterial Doppler waveforms bilaterally. Slow flow in the right anterior tibial artery. <Electronically signed by Idris Espinoza > 12/22/20 [id number]
== END ==
LOC: M RAD 11:28
PROVIDERS: ATTEND Surgery Vascular Surgery
DX: I70.248 Atherosclerosis of native arteries of left leg with ulceration of other part of lower leg (principal); I70.213 Atherosclerosis of native arteries of extremities with intermittent claudication, bilateral legs

== ENCOUNTER → 2021-02-19 | Outpatient (CLI) | payer MEDICARE, OTHER ==
--- NOTE | 2021-02-19 16:49 | REP ---
INDICATION: CAROTID BRUITS COMPARISON: None. TECHNIQUE: Real-time ultrasound evaluation and duplex Doppler interrogation of the extracranial carotid vasculature is performed. FINDINGS: There is mild plaquing and narrowing in both carotid bulbs extending into the internal and external carotid arteries. Luminal narrowing is less than 50%. There is no evidence of hemodynamically significant stenosis of either internal carotid artery. Normal flow velocities are seen. The right vertebral artery is not visualized. Left vertebral artery demonstrates normal direction of flow. RIGHT LEFT Peak systolic velocity ICA 70.5 cm/s 54.6 cm/s End diastolic velocity ICA 11.7 cm/s 11.2 cm/s Peak systolic velocity CCA 108.6 cm/s 148.9cm/s Peak systolic velocity ECA 104.2 cm/s 111.6 cm/s ICA/CCA ratio 0.65 0.37 IMPRESSION: Bilateral luminal narrowing of the internal carotid arteries less than 50%. No evidence of hemodynamically significant stenosis. <Electronically signed by Dane Kahn > 02/19/21 0542
== END ==
LOC: M RAD 13:11
PROVIDERS: ATTEND Internal Medicine Cardiovascular Disease
DX: R09.89 Other specified symptoms and signs involving the circulatory and respiratory systems (principal)

== ENCOUNTER → 2021-03-06 | Outpatient (REF) | payer MEDICARE, OTHER ==
[2021-03-06 14:22] LABS: ALBUMIN 3.8 GM/DL (3.2-5.2); CALCIUM LEVEL 9.4 MG/DL (8.8-10.2); CREATININE FOR GFR 1.29 MG/DL (0.70-1.30); GLOMERULAR FILTRATION RATE 56.9 (>35); POTASSIUM SERUM 3.8 MEQ/L (3.5-5.1); TOTAL PROTEIN 7.7 GM/DL (6.4-8.2)
[2021-03-06 14:29] LABS: MAU/CREAT RATIO 60.8 MCG/MG (0.0-30.0)
== END ==
LOC: M SFHCPLAZ 09:24
PROVIDERS: ATTEND Family Medicine
DX: E78.00 Pure hypercholesterolemia, unspecified (principal); E11.9 Type 2 diabetes mellitus without complications

== ENCOUNTER 2021-03-23 16:23 | Emergency (ER) | payer MEDICARE, OTHER ==
[~2021-03-23] VITALS: Ht 172.7 cm; Wt 109.1 kg
[2021-03-23 20:40] LABS: HEMATOCRIT 42.2 % (42.0-52.0); HEMOGLOBIN 13.7 g/dl (13.5-17.5); MEAN CORPUSCULAR HEMOGLOBIN 30.3 pg (27.0-33.0); MEAN CORPUSCULAR HGB CONC 32.5 g/dl (32.0-36.5); MEAN CORPUSCULAR VOLUME 93.4 fl (80.0-96.0); PLATELET COUNT, AUTOMATED 283 10^3/uL (150-450); RED BLOOD COUNT 4.52 10^6/uL (4.30-6.10); WHITE BLOOD COUNT 8.6 10^3/uL (4.0-10.0)
[2021-03-23 21:24] LABS: HEMOGLOBIN A1c 5.9 %
--- NOTE | 2021-03-23 21:28 | REPVR ---
PROCEDURE INFORMATION: Exam: US Duplex Lower Extremity Veins, Bilateral Exam date and time: 03/23/2021 8:44 PM Age: 80 years old Clinical indication: Pain; Leg, lower; Bilateral; Additional info: Swelling/pain TECHNIQUE: Imaging protocol: Real-time duplex ultrasound of the extremities with 2-D foss scale, color Doppler flow and spectral waveform analysis with image documentation. Complete exam focused on the bilateral lower extremity veins. COMPARISON: US Duplex, Ext LOWER veins, bilat 09/22/2020 10:39 AM FINDINGS: Right deep veins: Unremarkable. The common femoral, femoral, proximal profunda femoral and popliteal veins are patent without thrombus. Normal Doppler waveforms. Normal compressibility and/or augmentation response. Calf veins not visualized. Right superficial veins: Saphenofemoral junction is patent without thrombus. Left deep veins: Unremarkable. The common femoral, femoral, proximal profunda femoral and popliteal veins are patent without thrombus. Normal Doppler waveforms. Normal compressibility and/or augmentation response. Calf veins not visualized. Left superficial veins: Saphenofemoral junction is patent without thrombus. Soft tissues: Bilateral lower leg edema. IMPRESSION: 1. Bilateral lower leg edema. No DVT. 2. Calf veins not visualized likely related to compression secondary to lower extremity edema. Electronically signed by: Kuldip Easley On 03/23/2021 21:28:19 PM
[2021-03-23 22:29] LABS: ALBUMIN 3.9 GM/DL (3.2-5.2); ALT/SGPT 25 U/L (12-78); BILIRUBIN,DIRECT 0.2 MG/DL (0.0-0.2); BILIRUBIN,TOTAL 0.9 MG/DL (0.2-1.0); BLOOD UREA NITROGEN 18 MG/DL (7-18); C REACTIVE PROTEIN QUANTITATIV 1.45 MG/DL (0.00-0.30); CALCIUM LEVEL 9.5 MG/DL (8.8-10.2); CARBON DIOXIDE LEVEL 30 MEQ/L (21-32); CHLORIDE LEVEL 107 MEQ/L (98-107); CREATININE FOR GFR 1.12 MG/DL (0.70-1.30); GLOMERULAR FILTRATION RATE > 60.0 (>35); GLUCOSE, FASTING 86 MG/DL (70-100); NT-PRO BNP 201 PG/ML (<450); POTASSIUM SERUM 4.7 MEQ/L (3.5-5.1); SODIUM LEVEL 142 MEQ/L (136-145); TOTAL PROTEIN 8.1 GM/DL (6.4-8.2)
[2021-03-23 23:12] VITALS: BP 155/65
== END 2021-03-23 23:14 | disposition home or self-care (01) ==
LOC: M ED 16:23
DX: R22.43 Localized swelling, mass and lump, lower limb, bilateral (principal); L97.511 Non-pressure chronic ulcer of other part of right foot limited to breakdown of skin; L97.521 Non-pressure chronic ulcer of other part of left foot limited to breakdown of skin; I25.2 Old myocardial infarction; I10 Essential (primary) hypertension; E78.5 Hyperlipidemia, unspecified; J44.9 Chronic obstructive pulmonary disease, unspecified; G47.33 Obstructive sleep apnea (adult) (pediatric); M10.9 Gout, unspecified; Z79.899 Other long term (current) drug therapy; Z79.01 Long term (current) use of anticoagulants; Z79.82 Long term (current) use of aspirin; Z95.820 Peripheral vascular angioplasty status with implants and grafts; Z87.891 Personal history of nicotine dependence; Z98.890 Other specified postprocedural states

== ENCOUNTER 2021-04-17 16:21 | Emergency (ER) | payer MEDICARE, OTHER ==
[~2021-04-17] VITALS: Ht 172.7 cm; Wt 108.7 kg
[2021-04-17 16:22] VITALS: BP 150/67
[2021-04-17] MEDS ORDERED: NORCO, ANEXSIA 5/325MG TABLET (HYDROcodone/ACETAMINOPHEN) PO ONE (19:30)
--- NOTE | 2021-04-17 20:55 | REPVR ---
PROCEDURE INFORMATION: Exam: US Duplex Lower Extremity Veins, Bilateral Exam date and time: 04/17/2021 8:23 PM Age: 80 years old Clinical indication: Pain; Edema, localized; Lower extremity, bilateral; Leg, lower; Additional info: Severe pain, swelling, RO clot TECHNIQUE: Imaging protocol: Real-time duplex ultrasound of the extremities with 2-D foss scale, color Doppler flow and spectral waveform analysis with image documentation. Complete exam focused on the bilateral lower extremity veins. COMPARISON: US Duplex, Ext LOWER veins, bilat 03/23/2021 8:25 PM FINDINGS: Right deep veins: Suboptimal visualization of the calf veins. The common femoral, femoral and popliteal veins are patent without thrombus. Normal Doppler waveforms. Normal compressibility and/or augmentation response. Right superficial veins: Saphenofemoral junction is patent without thrombus. Left deep veins: Suboptimal visualization of the calf veins. The common femoral, femoral and popliteal veins are patent without thrombus. Normal Doppler waveforms. Normal compressibility and/or augmentation response. Left superficial veins: Saphenofemoral junction is patent without thrombus. Soft tissues: Unremarkable. IMPRESSION: No sonographic evidence of deep vein thrombosis. Electronically signed by: Kareem Rogers On 04/17/2021 20:55:27 PM
[2021-04-17 22:03] LABS: BASO # 0.1 10^3/uL (0.0-0.2); BASO % 0.8 % (0.0-1.0); EOS # 0.3 10^3/uL (0.0-0.5); EOS % 3.6 % (0.0-3.0); HEMATOCRIT 40.7 % (42.0-52.0); HEMOGLOBIN 13.1 g/dl (13.5-17.5); LYMPH # 1.5 10^3/uL (1.5-5.0); LYMPH % 17.6 % (24.0-44.0); MEAN CORPUSCULAR HEMOGLOBIN 30.6 pg (27.0-33.0); MEAN CORPUSCULAR HGB CONC 32.2 g/dl (32.0-36.5); MEAN CORPUSCULAR VOLUME 95.1 fl (80.0-96.0); MONO # 0.6 10^3/uL (0.0-0.8); NEUTROPHILS # 6.1 10^3/uL (1.5-8.5); NEUTROPHILS % 70.6 % (36.0-66.0); PLATELET COUNT, AUTOMATED 256 10^3/uL (150-450); RED BLOOD COUNT 4.28 10^6/uL (4.30-6.10); WHITE BLOOD COUNT 8.6 10^3/uL (4.0-10.0)
[2021-04-17 22:22] LABS: BLOOD UREA NITROGEN 11 MG/DL (7-18); C REACTIVE PROTEIN QUANTITATIV 1.75 MG/DL (0.00-0.30); CARBON DIOXIDE LEVEL 31 MEQ/L (21-32); CHLORIDE LEVEL 108 MEQ/L (98-107); CREATININE FOR GFR 1.21 MG/DL (0.70-1.30); GLOMERULAR FILTRATION RATE > 60.0 (>35); GLUCOSE, FASTING 131 MG/DL (70-100); NT-PRO BNP 285 PG/ML (<450); POTASSIUM SERUM 4.4 MEQ/L (3.5-5.1); SODIUM LEVEL 145 MEQ/L (136-145)
[2021-04-17 22:23] LABS: ERYTHROCYTE SEDIMENTATION RATE 51 mm/hr (0-20)
[2021-05-11] MEDS ORDERED: PSYL0.4C4 PO (09:58)
[2021-05-11] MEDS ORDERED: BREO1INH INH (09:58)
== END 2021-04-17 22:54 | disposition home or self-care (01) ==
LOC: M ED 16:21
DX: R60.0 Localized edema (principal); I25.2 Old myocardial infarction; I10 Essential (primary) hypertension; J44.9 Chronic obstructive pulmonary disease, unspecified; G47.33 Obstructive sleep apnea (adult) (pediatric); E78.5 Hyperlipidemia, unspecified; M10.9 Gout, unspecified; Z79.01 Long term (current) use of anticoagulants; Z87.891 Personal history of nicotine dependence; Z84.1 Family history of disorders of kidney and ureter; Z98.890 Other specified postprocedural states
CPT/HCPCS: 80048; 83880; 85025; 85652; 86140; 93970; 99284; G0463

== ENCOUNTER → 2021-05-08 | Outpatient (POV) | payer MEDICARE, OTHER ==
[~2021-05-08] VITALS: Ht 172.7 cm; Wt 64.5 kg
[~2021-05-08] MED LIST changes: +ASPI-161 PO; -ASPI-281 PO; +ASPI-310 PO; +BACL10TA2 PO; +BENG1CRE3 EXT; +BREO1INH INH; +DICL1PAT6 TOP; +FERR1TAB8 PO; +FISH1000 PO; +GABA-282 PO; +GABA-283 PO; +HYDR25TA PO; -LISI-898 PO; +LISI5TAB11 PO; +MUSCCRE9 TOP; +NYST10CR EXT; +OCUS0.02 EXT; +PANT40TA29 PO; +PLAV1TAB2 PO; +POTA-151 PO; -POTA20TA6 PO; +PROAAER10 INH; +PSYL0.4C4 PO; +REFRSOL OU; +SILV50CR TOP; +TORS10TA3 PO; +TRAM50TA2 PO; +[UNRECOGNIZED DRUG - CODE] TOP; +[UNRECOGNIZED DRUG - CODE] TOP
[2021-05-08 15:40] VITALS: BP 139/64
== END ==
LOC: M IRPOV 15:44
PROVIDERS: ATTEND Radiology Diagnostic Radiology
DX: I70.203 Unspecified atherosclerosis of native arteries of extremities, bilateral legs (principal); R60.0 Localized edema; E78.00 Pure hypercholesterolemia, unspecified; G47.33 Obstructive sleep apnea (adult) (pediatric); J44.9 Chronic obstructive pulmonary disease, unspecified; I10 Essential (primary) hypertension; M54.9 Dorsalgia, unspecified; Z85.820 Personal history of malignant melanoma of skin; Z87.891 Personal history of nicotine dependence; Z95.828 Presence of other vascular implants and grafts

== ENCOUNTER → 2021-05-21 | Outpatient (CLI) | payer MEDICARE, OTHER ==
[~2021-05-21] MED LIST changes: -ASPI-161 PO; +ASPI-281 PO; -ASPI-310 PO; -BACL10TA2 PO; -BENG1CRE3 EXT; -DICL1PAT6 TOP; -FERR1TAB8 PO; -FISH1000 PO; -GABA-282 PO; -GABA-283 PO; -HYDR25TA PO; +ISOVUE-300 61% 50ML VIAL As Ordered ONE; +LIDOCAINE 1% MDV 20ML VIAL As Ordered ONE; +LISI-898 PO; -LISI5TAB11 PO; +MIDAZOLAM INJ 2MG/2ML VIAL (J2250 PER 1MG) As Ordered ONE; -MUSCCRE9 TOP; +NS 1,000 ML IV SCH; -NYST10CR EXT; -OCUS0.02 EXT; +ONDANSETRON 4MG/2ML VIAL IV PRN; -PANT40TA29 PO; +PERCOCET 5MG/325MG TAB As Ordered ONE; +PERCOCET 5MG/325MG TAB PO PRN; -PLAV1TAB2 PO; -POTA-151 PO; +POTA20TA6 PO; -PROAAER10 INH; -REFRSOL OU; -SILV50CR TOP; -TORS10TA3 PO; -TRAM50TA2 PO; -[UNRECOGNIZED DRUG - CODE] TOP; -[UNRECOGNIZED DRUG - CODE] TOP; +diphenhydrAMINE 50MG/ML VIAL (J1200) As Ordered ONE; +fentaNYL 100 MCG/2 ML INJECTION (J3010) As Ordered ONE
--- NOTE | 2021-05-21 08:32 | IRHP ---
[facility] IR Pre-Procedure H & P General Date of Service: May 21, 2021 Procedure: Same Day Surgery Interval History and Physical I have seen the patient and reviewed last H & P performed within 30 days. There is no significant interval change. History of Present Illness Chief Complaint The patient is a 81-year-old male admitted with a reason for visit of PAD. PRE-PROCEDURE DIAGNOSIS: PAD HEART: Bradycardia to 46 on beta paul. LUNGS: Normal breathing at rest. ASA Classification ASA Classification: III-Severe systemic dis. Mallampati Score: II NPO: Yes Problems with prior sedation: No Obstructive Sleep Apnea: No Plan moderate sedation Allergies Coded Allergies: No Known Allergies (Verified , 03/25/18) Home Medications Scheduled Aspirin (Aspirin), 81 MG PO DAILY, (Reported) Atenolol (Atenolol), 25 MG PO DAILY, (Reported) Clopidogrel Bisulfate (Clopidogrel), 75 MG PO DAILY, (Reported) Fluticasone/Vilanterol (Breo Ellipta 100-25 Mcg INH), 1 PUFF INH DAILY, (Reported) Furosemide (Furosemide), 80 MG PO DAILY, (Reported) Latanoprost (Xalatan), 1 DROP OU QHS, (Reported) Potassium Chloride (Potassium Chloride), 20 MEQ PO BID, (Reported) Pravastatin Sodium (Pravastatin Sodium), 40 MG PO DAILY, (Reported) Psyllium Husk (Reguloid), 0.4 GM PO TID, (Reported) Scheduled PRN Albuterol Sulfate (Ventolin Hfa), 2 PUFFS INH Q6HP PRN for DYSPNEA, (Reported) VS, I&O, 24H, Fishbone Vital Signs/I&O Vital Signs Date Time Temp Pulse Resp B/P (MAP) Pulse Ox O2 Delivery O2 Flow Rate FiO2 05/21/21 07:17 97.0 60 20 97 Room Air JOVANNA MCKEON MD May 21, 2021 08:31
[2021-05-21 16:30] VITALS: BP 149/72
--- NOTE | 2021-05-22 11:05 | IRPON ---
IR Postoperative Note Date Of Procedure: May 21, 2021 Time Of Procedure: 16:00 IR Postoperative Note IR Left leg angiogram IR Left Below-knee runoff arteriogram. IR Ultrasound-guided right common femoral artery access. IR Left superficial femoral artery angioplasty. IR Left popliteal artery angioplasty. IR Moderate sedation. Clinical Information:Left lower extremity rest pain with leg elevation. Known PAD with SFA stents. Physician: Dr. Jin. Procedure: The patient was advised of the benefits, risks, and alternatives of the procedure and informed consent was obtained. A time out was performed with verification of the patient's name, MRN, site of procedure, and type of procedure to be performed. The patient was positioned in the supine position on the angiographic table. The site was prepped and draped in the usual sterile fashion. Moderate sedation was performed by the physician, including the presence of an independent trained RN, who assisted in monitoring the patient's level of consciousness and physiological status. Following the administration of fentanyl and Versed, the physician spent 90 minutes of continuous [id number] time with the patient. A client resource specialist radiograph reveals full metal jacket; overlapping metal stents from the proximal left superficial femoral artery to the P2 segment of the popliteal artery. Ultrasound of the right groin demonstrates patent right common femoral artery. Lidocaine was used for local anesthesia. The right common femoral artery was accessed, under ultrasound guidance with a microintroducer set. A short 0.018" [place] wire was inserted under fluoroscopic guidance, and the needle was exchanged for a 4 Fr microintroducer sheath. The guidewire and dilator were removed and a 0.035" [place] wire, was advanced under fluoroscopy guidance and placed into the abdominal aorta. A 6 Fr sheath was placed over the wire. An Omni flush catheter was advanced over the wire, under fluoroscopic guidance and used to catheterize the infrarenal abdominal aorta. A pelvic arteriogram was performed. This demonstrates, patent infrarenal abdominal aorta, patent bilateral common iliac, internal iliac and external iliac arteries. Patent bilateral common femoral, proximal superficial femoral and proximal profunda femoris. A Glidewire was advanced through the flush catheter and used to gain up and over access, into the left common iliac artery. The catheter was removed over the wire. A Glidecath was advanced over the wire, under fluoroscopy guidance and used to catheterize the left common femoral artery. A left leg angiogram was performed. This demonstrates a focal outpouching and irregularity, proximal to the first SFA stent. Patent profunda femoris. There is 50% IntraStent stenosis within the proximal and mid left superficial femoral artery. Angiography further down the left leg was performed. This demonstrates, greater than 80% IntraStent stenosis in the distal superficial femoral artery and P1 and P2 segment of the popliteal artery. Numerous geniculate, and other unnamed collaterals. Patent P3 segment of the popliteal artery. Patent proximal anterior tibial artery and tibio peroneal trunk. A runoff arteriogram to the left foot was performed. This demonstrates, patent anterior tibial and posterior tibial artery runoff to the left foot. Patent calcaneal and plantar branches off the posterior tibial artery. Patent dorsalis pedis. Complete pedal loop. No significant peroneal artery. A wire was advanced through the Glidecath, under fluoroscopy, and positioned in the proximal superficial femoral artery. The Glidecath was removed over the wire. A 6 Macedonian 45 cm, destination sheath, was advanced over the wire, under fluoroscopic guidance and positioned in the left common femoral artery. The Glidecath in conjunction with a Glidewire, was used under fluoroscopy guidance, to catheterize the proximal left superficial femoral artery. The catheter in conjunction with the wire, was then used under fluoroscopy guidance, to catheterize intraluminally through the stents in the mid and distal superficial femoral artery. Intermittent injection of contrast confirmed intraluminal location. The catheter in conjunction with the wire, was then used catheterize the mid popliteal artery. Injection of contrast confirmed successful intraluminal catheterization. The catheter was removed over the wire. A 6 x 200 mm [place] balloon was then advanced over the wire, under fluoroscopy guidance and positioned in the stented distal superficial femoral artery, P1 and P2 segment of the popliteal artery. Angioplasty was performed. Heparin was a dministered. The balloon was then deflated. A post angioplasty follow-up arteriogram was performed, through the groin sheath, tip located in the left common femoral artery. This demonstrates improved flow through the treated region of the distal superficial femoral artery and P1 P2 segment of the popliteal artery. No vessel cutoff, no active extravasation and no distal emboli. A below-knee runoff arteriogram was then performed, through the groin sheath, tip located in the left common femoral artery. This demonstrates more rapid flow to the left below-knee area with patent anterior tibial and posterior tibial artery. No distal emboli. The 6 x 200 mm [place] balloon was then used under fluoroscopy guidance and positioned in the stented mid left superficial femoral artery. Angioplasty was performed. The balloon was deflated and retracted over the wire, to the stented portion of the proximal and mid left superficial femoral artery. Angioplasty was performed. The balloon was then deflated. A post angioplasty follow-up arteriogram was performed, through the groin sheath. This demonstrates improved flow from the left common femoral artery to the left superficial femoral artery. Resolution of IntraStent stenosis within the proximal, mid and distal left superficial femoral artery. No extravasation, vessel injury or cutoff. Further follow-up post angioplasty arteriography was performed, down the left leg. This demonstrates improved flow through the P1 and P2 segments of the popliteal artery with resolution of IntraStent stenosis. Good antegrade flow into the P3 segment of the popliteal artery, anterior tibial and posterior tibial artery with no distal emboli. A completion angiogram runoff to the left foot was performed. This demonstrates improved inflow to the left anterior tibial and posterior tibial artery, coursing into the foot, with complete pedal loop and no distal emboli. The angioplasty balloon and wire were removed. The long sheath was exchanged over the wire, under fluoroscopic guidance for a short sheath. A 6 [place] Mynx device was used to close the groin arteriotomy, pressure held and hemostasis achieved. A sterile dressing was applied to the site. The patient tolerated the procedure well and was returned to the PRU in stable condition. EBL: < 5 mL. Complications:None. Impression: 1. Left leg angiogram demonstrates continuous overlapping metal stents, from the proximal superficial femoral artery to the P2 segment of the popliteal artery. 2. Angiography demonstrated 50% IntraStent stenosis in the proximal and mid superficial femoral artery and greater than 80% IntraStent stenosis in the distal left superficial femoral artery and P1 P2 segment of the popliteal artery. 3. Runoff arteriogram to the left foot demonstrates patent anterior tibial and posterior tibial artery coursing into the left foot with complete pedal loop. 4. Successful IntraStent angioplasty of the proximal, mid and distal left superficial femoral artery and P1 P2 segment of the popliteal artery, with resolution of IntraStent stenosis and improved flow to the left foot. Thank you for this referral. Cc Dr. Neto Becker Shakira PA C CC PCP JOVANNA JIN MD May 22, 2021 11:05
== END ==
LOC: M IRPRO 07:03
PROVIDERS: ATTEND Radiology Diagnostic Radiology
DX: I70.222 Atherosclerosis of native arteries of extremities with rest pain, left leg (principal); Z95.828 Presence of other vascular implants and grafts
CPT/HCPCS: 37224; 75630; 75774; 99152; 99153; C1725; C1760; C1769; C1887; C1894; J1644; J2250; J3010; Q9967

== ENCOUNTER → 2021-05-22 | Outpatient (CLI) | payer MEDICARE, OTHER ==
[~2021-05-22] MED LIST changes: -ISOVUE-300 61% 50ML VIAL As Ordered ONE; -LIDOCAINE 1% MDV 20ML VIAL As Ordered ONE; -MIDAZOLAM INJ 2MG/2ML VIAL (J2250 PER 1MG) As Ordered ONE; -NS 1,000 ML IV SCH; -ONDANSETRON 4MG/2ML VIAL IV PRN; -PERCOCET 5MG/325MG TAB As Ordered ONE; -PERCOCET 5MG/325MG TAB PO PRN; -diphenhydrAMINE 50MG/ML VIAL (J1200) As Ordered ONE; -fentaNYL 100 MCG/2 ML INJECTION (J3010) As Ordered ONE
--- NOTE | 2021-05-22 15:10 | REP ---
INDICATION: HUSSEIN REFLUX FOR HYPERTENSION. COMPARISON: 04/17/2021 TECHNIQUE: 2D and Doppler ultrasound performed. FINDINGS: Right-side: Minimal deep system reflux paired greater saphenous reflux worse with augmentation the greater saphenous vein measures 6.3 mm at the junction, 5.6 mm in the mid thigh and 6.8 mm at the knee. Reflux in these areas measures 2.1, 1.3 and 6.6 seconds with augmentation. Left side: Minimal deep system reflux paired greater saphenous vein reflux present with augmentation at the junction the AP diameter measures 7.6 mm reflux time 1.5 seconds. Mid thigh measurements 6.7 mm 2.1 seconds with Valsalva. Measuring that the knee feels 0.5 mm 3.6 seconds with augmentation. No deep venous thrombi on either side. IMPRESSION: Bilateral greater saphenous vein reflux more severe with augmentation. <Electronically signed by Jayesh Cavazos > 05/22/21 [id number]
== END ==
LOC: M RAD 13:04
PROVIDERS: ATTEND Radiology Diagnostic Radiology
DX: I73.9 Peripheral vascular disease, unspecified (principal); I87.2 Venous insufficiency (chronic) (peripheral); I87.302 Chronic venous hypertension (idiopathic) without complications of left lower extremity

== ENCOUNTER → 2021-05-31 | Outpatient (CLI) | payer MEDICARE, OTHER ==
[~2021-05-31] MED LIST changes: +ASPI-161 PO; -ASPI-281 PO; +ASPI-310 PO; +FISH1000 PO; +NYST10CR EXT; +OCUS0.02 EXT; +REFRSOL OU; +[UNRECOGNIZED DRUG - CODE] TOP
--- NOTE | 2021-06-03 12:09 | ECHO ---
ECHOCARDIOGRAM DATE OF PROCEDURE: 05/31/2021 Age: Gender: Male Height: 69 inches Weight: 235 pounds REFERRING PHYSICIAN: Harmeet Pike D.O. INDICATION: Hypervolemia. MEASUREMENTS: 2D Measurements: Left atrium 4.2 cm Left atrial volume index 19 Aortic root 3.2 cm Interventricular septum 1.20 cm Posterior wall 1.23 cm Left ventricle diastole 4.5 cm Aortic annulus 2.5 cm Doppler Measurements: No aortic regurgitation No aortic stenosis Aortic valve velocity 136 cm/sec LVOT velocity 84.2 cm/sec No mitral regurgitation Mitral E velocity 74.6 cm/sec Mitral A velocity 91.7 cm/sec Mitral deceleration time 106.6 msec Mild tricuspid regurgitation Estimated right ventricle systolic pressure 47-52 mmHg Estimated right atrial pressure of 5-10 mmHg No pulmonic regurgitation Pulmonary acceleration time 92 msec CLAUDIA ANNULAR TISSUE DOPPLER: E prime septal 5.2 cm/sec E prime lateral 9.0 cm/sec DESCRIPTION: Rhythm was predominantly sinus bradycardia. Occasional premature ventricular contractions (PVCs). Image quality was fair. Technically difficult subcostal window. No suprasternal notch views obtained. No pericardial effusion. CONCLUSIONS: 1. Mild concentric left ventricular hypertrophy. Normal regional left ventricular (LV) wall motion and wall thickening. Normal LV systolic function. Left ventricular ejection fraction (LVEF) 65% by visual estimate. Grade 1 LV diastolic dysfunction. 2. Normal left atrial size by left atrial volume index. 3. Moderate aortic valve sclerosis of A3-cusp aortic valve. No aortic stenosis or regurgitation. 4. Mild mitral annular calcification. No mitral regurgitation. 5. Suggestive of moderate elevated of estimated right ventricle systolic pressure (47-21 mmHg).
== END ==
LOC: M CARPUL 10:26
PROVIDERS: ATTEND Student in an Organized Health Care Education/Training Program
DX: E87.70 Fluid overload, unspecified (principal)

== ENCOUNTER 2021-06-06 21:30 | Inpatient (IN) | payer MEDICARE, OTHER ==
[~2021-06-06] VITALS: Ht 172.7 cm; Wt 111.5 kg
[~2021-06-06 21:30] MED LIST changes: -ASPI-161 PO; +ASPI-281 PO; -ASPI-310 PO; -FISH1000 PO; -NYST10CR EXT; -OCUS0.02 EXT; -REFRSOL OU; -[UNRECOGNIZED DRUG - CODE] TOP
[2021-06-06] MEDS ORDERED: NS 500 ML IV ONE (22:35)
[2021-06-06 22:54] LABS: HEMOGLOBIN 12.3 g/dl (13.5-17.5); MEAN CORPUSCULAR HEMOGLOBIN 31.1 pg (27.0-33.0); MEAN CORPUSCULAR HGB CONC 33.2 g/dl (32.0-36.5); MEAN CORPUSCULAR VOLUME 93.7 fl (80.0-96.0); PLATELET COUNT, AUTOMATED 240 10^3/uL (150-450); RED BLOOD COUNT 3.95 10^6/uL (4.30-6.10)
[2021-06-06 22:59] LABS: WHITE BLOOD COUNT 29.9 10^3/uL (4.0-10.0)
[2021-06-06] MEDS ORDERED: NS 2,760 ML in IV 1 EA IV ONE (23:20)
[2021-06-06] MEDS ORDERED: cefTRIAXone SOD 2 GM in D5W MINI-BAG PLUS 50 ML IV ONE (23:20)
[2021-06-06 23:32] LABS: LYMPHOCYTES 6 % (16-44); METAMYELOCYTES 2 % (0-0); MONOCYTES 3 % (0-5); NEUTROPHILS 77 % (28-66); PLATELET ESTIMATE NORMAL (NORMAL)
[2021-06-06 23:40] LABS: ALT/SGPT 30 U/L (12-78); BILIRUBIN,DIRECT 0.3 MG/DL (0.0-0.2); BILIRUBIN,TOTAL 1.2 MG/DL (0.2-1.0); BLOOD UREA NITROGEN 24 MG/DL (7-18); CALCIUM LEVEL 8.6 MG/DL (8.8-10.2); CARBON DIOXIDE LEVEL 25 MEQ/L (21-32); CHLORIDE LEVEL 113 MEQ/L (98-107); CK-MB VALUE MASS 15.1 NG/ML (<3.6); CPK CREATINE PHOSPHOKINASE 1884 U/L (39-308); GLOMERULAR FILTRATION RATE 36.3 (>35); GLUCOSE, FASTING 129 MG/DL (70-100); LIPASE 45 U/L (73-393); POTASSIUM SERUM 4.2 MEQ/L (3.5-5.1); SODIUM LEVEL 145 MEQ/L (136-145); TOTAL PROTEIN 6.7 GM/DL (6.4-8.2); TROPONIN I < 0.02 NG/ML (< 0.10)
--- NOTE | 2021-06-06 23:46 | REPVR ---
PROCEDURE INFORMATION: Exam: XR Chest Exam date and time: 06/06/2021 10:32 PM Age: 81 years old Clinical indication: Other: Fall TECHNIQUE: Imaging protocol: XR of the chest. Views: 1 view. COMPARISON: 1. CR CHEST 2 VIEW 2017-02-12 08:[address] ABD/PEL W/IV CONTRAST ONLY 2020-02-14 19:12 3. CR ABDOMEN (MIN 2 VIEW) 2020-02-14 17:23 FINDINGS: Lungs: Unremarkable. No consolidation. Pleural spaces: Unremarkable. No pleural effusion. No pneumothorax. Heart/Mediastinum: Unremarkable. No cardiomegaly. Bones/joints: Unremarkable. IMPRESSION: No acute findings. Electronically signed by: Arnol Hamilton On 06/06/2021 23:46:11 PM
--- NOTE | 2021-06-06 23:50 | REPVR ---
PROCEDURE INFORMATION: Exam: CT Head Without Contrast Exam date and time: 06/06/2021 10:59 PM Age: 81 years old Clinical indication: Injury or trauma; Fall; Blunt trauma (contusions or hematomas) TECHNIQUE: Imaging protocol: Computed tomography of the head without contrast. Radiation optimization: All CT scans at this facility use at least one of these dose optimization techniques: automated exposure control; mA and/or kV adjustment per patient size (includes targeted exams where dose is matched to clinical indication); or iterative reconstruction. COMPARISON: US Duplex,carotid (complete) 2021-02-19 13:21 FINDINGS: Brain: Small chronic left putaminal lacunar infarct. No midline shift, mass, fluid collection, or evidence of acute hemorrhage. Cerebral ventricles: No ventriculomegaly. Paranasal sinuses: Visualized sinuses are unremarkable. No fluid levels. Mastoid air cells: Visualized mastoid air cells are well aerated. Bones/joints: Unremarkable. No acute fracture. Soft tissues: Unremarkable. IMPRESSION: No acute intracranial abnormality. Electronically signed by: Arnol Hamilton On 06/06/2021 23:49:41 PM
--- NOTE | 2021-06-06 23:51 | REPVR ---
PROCEDURE INFORMATION: Exam: CT Cervical Spine Without Contrast Exam date and time: 06/06/2021 10:59 PM Age: 81 years old Clinical indication: Injury or trauma; Fall; Blunt trauma TECHNIQUE: Imaging protocol: Computed tomography images of the cervical spine without contrast. Radiation optimization: All CT scans at this facility use at least one of these dose optimization techniques: automated exposure control; mA and/or kV adjustment per patient size (includes targeted exams where dose is matched to clinical indication); or iterative reconstruction. COMPARISON: 1. US Duplex,carotid (complete) 2021-02-19 13:21 2. CR PORTABLE CHEST X-RAY 2021-06-06 22:37 FINDINGS: Bones/joints: No acute fracture. Normal alignment. Discs/Spinal canal/Neural foramina: Diffuse degenerative disc space loss with degenerative disc osteophyte complexes, facet arthropathy, and ligamentum flavum thickening causes up to moderate spinal and foraminal stenosis greatest at C4-C7. Lungs: Lung apices are normal. Soft tissues: Unremarkable. IMPRESSION: No acute findings. Electronically signed by: Arnol Hamilton On 06/06/2021 23:50:44 PM
[2021-06-07 01:24] LABS: RSV AMPLIFICATION NEGATIVE (NEGATIVE)
--- NOTE | 2021-06-07 02:44 | REPVR ---
PROCEDURE INFORMATION: Exam: CT Chest Without Contrast; Diagnostic Exam date and time: 06/07/2021 1:41 AM Age: 81 years old Clinical indication: Injury or trauma; Fall; Blunt trauma (contusions or hematomas); Additional info: Fall, right flank pain TECHNIQUE: Imaging protocol: Diagnostic computed tomography of the chest without contrast. Radiation optimization: All CT scans at this facility use at least one of these dose optimization techniques: automated exposure control; mA and/or kV adjustment per patient size (includes targeted exams where dose is matched to clinical indication); or iterative reconstruction. COMPARISON: 1. CR PORTABLE CHEST X-RAY 2021-06-06 22:37 2. CR CHEST 2 VIEW 2017-02-12 08:24 FINDINGS: Limitations: Artifact related to patient's arm position limits evaluation. Limited by patient's body habitus. Lungs: Dependent subsegmental pulmonary atelectasis. Dependent subsegmental pulmonary atelectasis. Pleural spaces: Unremarkable. No pneumothorax. No pleural effusion. Heart: Unremarkable. No cardiomegaly. No pericardial effusion. Aorta: Unremarkable. No aortic aneurysm. Lymph nodes: Unremarkable. No enlarged lymph nodes. Bones/joints: Unremarkable. No acute fracture. Soft tissues: Unremarkable. IMPRESSION: No acute findings. Electronically signed by: Arnol Hamilton On 06/07/2021 02:43:57 AM
--- NOTE | 2021-06-07 02:49 | REPVR ---
PROCEDURE INFORMATION: Exam: CT Abdomen And Pelvis Without Contrast Exam date and time: 06/07/2021 1:41 AM Age: 81 years old Clinical indication: Injury or trauma; Fall; Blunt; Generalized; Additional info: Fall, right flank pain TECHNIQUE: Imaging protocol: Computed tomography of the abdomen and pelvis without contrast. Radiation optimization: All CT scans at this facility use at least one of these dose optimization techniques: automated exposure control; mA and/or kV adjustment per patient size (includes targeted exams where dose is matched to clinical indication); or iterative reconstruction. COMPARISON: 1. CT ABD/PEL W/IV CONTRAST ONLY 2020-02-14 19:[address] ABD PELVIS W/O CONTRAST 2016-08-14 13:59 FINDINGS: Limitations: Artifact related to patient's arm position limits evaluation. Limited by patient's body habitus. Study is limited by the absence of contrast. Liver: Normal. No mass. Gallbladder and bile ducts: Normal. No calcified stones. No ductal dilation. Pancreas: Normal. No ductal dilation. Spleen: Normal. No splenomegaly. Adrenal glands: Normal. No mass. Kidneys and ureters: Normal. No hydronephrosis. Stomach and bowel: Unremarkable. No obstruction. No mucosal thickening. Appendix: No evidence of appendicitis. Intraperitoneal space: Unremarkable. No free air. No significant fluid collection. Retroperitoneal space: Trace retroperitoneal fluid or thickening of the left-sided conal fascia with some small adjacent lymph nodes, likely reactive. Vasculature: Unremarkable. No abdominal aortic aneurysm. Lymph nodes: Unremarkable. No enlarged lymph nodes. Urinary bladder: Unremarkable as visualized. Reproductive: Unchanged scattered prostate calcification and enlargement. Bones/joints: Moderate lumbar spondylosis. Soft tissues: Unremarkable. IMPRESSION: Trace retroperitoneal fluid or thickening of the left-sided conal fascia with some small adjacent lymph nodes, likely reactive. No acute posttraumatic abnormality. Electronically signed by: Arnol Hamilton On 06/07/2021 02:48:42 AM
[2021-06-07] MEDS ORDERED: MORPHINE 2 MG/ML 1ML VIAL (J2270) IV ONE (04:40)
[2021-06-07] MEDS ORDERED: NS 1,000 ML IV STA ×2 (05:20)
[2021-06-07] MEDS ORDERED: PIPERACILLIN/TAZOBACTAM SOD 3.375 GM in D5W MINI-BAG PLUS 50 ML IV STA (05:21)
[2021-06-07] MEDS ORDERED: FLUID PLACE HOLDER IV STA (05:21)
[2021-06-07] MEDS ORDERED: VANCOMYCIN HCL IV STA (05:21)
[2021-06-07] MEDS ORDERED: NS 1,000 ML IV ONE (05:35)
--- NOTE | 2021-06-07 05:49 | HPEPDOC ---
General Date of Admission 06/07/2021 Date of Service: Jun 07, 2021 Attending Physician: GIANNA CABRERA MD Chief Complaint The patient is a 81-year-old male admitted with a reason for visit of Leukocy tosis, Rhabdomyolysis. Source: Patient, Old records Exam Limitations: Other (hearing impairment) Timing/Duration: Day(s) (1) Severity: Moderate, Severe Associated Symptoms: Syncope, Mechanical fall History of Present Illness The majority of the information was obtained from ER and patient with the aid of remote interpretors. Interpretor ID [id number] and [id number]. Patient is a 81 year old male with history of hearing impairment, HTN, NICOLAS, and type 2 DM, and PAD s/p bilateral lower extremity ballon angioplasties, and bilateral lower extremity ulcers presented to ER due to syncope after a mechanical fall around 8PM on 06/06/2021. Patient reported that he was feeling lightheadedness and dizziness for a while, but was feeling more lightheaded and dizzy yesterday, he was feeding her cat food, then slipped and fell then lost consciousness. Patient noted that he was able to call his daughter prior to the fall, and that he saw the time on TV was around 8PM. The fall was unwitnessed, he said that he lost consciousness for about 5 hours. Patient reported chronic midline mid-thoracic back pain which is worse now. He denies any extremity weakness, numbness, or tingling, fever, or chills. Of note patient has bilateral lower extremity ulcers following wound care. He denies prior syncope Home Medications Scheduled Aspirin (Aspirin EC) 81 Mg Tablet.dr, 81 MG PO DAILY, (Reported) Atenolol (Atenolol) 25 Mg Tablet, 25 MG PO DAILY, (Reported) Clopidogrel Bisulfate (Clopidogrel) 75 Mg Tablet, 75 MG PO DAILY, (Reported) Eyelid Cleanser Comb No.7 (Ocusoft Lid Scrub) 1 Each Kit, 1 DOSE TOP BID, (Reported) Fluticasone/Vilanterol (Breo Ellipta 100-25 Mcg INH) 1 Each Blst.w.dev, 1 PUFF INH DAILY, (Reported) Furosemide (Furosemide) 80 Mg Tablet, 80 MG PO DAILY, (Reported) Hypoc Acid/Sod Hypo/NaCl/Water (Ocusoft Hypochlor Solution) 59 Ml [place], 1 DOSE EXT BID, (Reported) SPRAY ONTO OCUSOFT LID SCRUB Latanoprost (Xalatan) 0.005% 2.5ML Drops, 1 DROP OU QHS, (Reported) [place]-3 Fatty Acids/Fish Oil (Fish Oil 1,000 mg Capsule) 1 Each Capsule, 1,000 MG PO DAILY, (Reported) Potassium Chloride (Potassium Chloride) 20 Meq Tab.er.prt, 20 MEQ PO BID, (Reported) Pravastatin Sodium (Pravastatin Sodium) 40 Mg Tablet, 40 MG PO DAILY, (Reported) Psyllium Husk (Reguloid) 0.4 Gm Capsule, 800 MG PO TID, (Reported) Scheduled PRN Albuterol Sulfate (Ventolin Hfa) 18 Gm Hfa.aer.ad, 2 PUFFS INH QID PRN for SHORTNESS OF BREATH, (Reported) Carboxymethyl/Glycerin/Poly80 (Refresh Optive Advanced Drops) 10 Ml Drops, 1 DROP OU QID PRN for DRY EYES, (Reported) Nystatin (Nystatin) 15 Gm Cream..g., 1 DOSE EXT BID PRN for RASH, (Reported) APPLY TO RASH ON ADBOMEN Allergies Coded Allergies: No Known Allergies (Verified , 03/25/18) Past Medical History Medical History Deafness Essential HTN PAD s/p bilateral LE ballon angioplasty NICOLAS Restrictive lung pathologyy History of melanoma sp 2 skin excisions from right side of face and 5 excisions from back Hypercholesterolemia Onychomychosis Smoking history, quit around Surgical History Bilateral lower extremity angiogram and angioplasty Knee surgery 30 years ago Skin excisions:2 from right side of face and 5 from back Shoulder arthroplasty Social History * Smoker: former Smoker A-FIB/CHADSVASC A-FIB History Current/History of A-Fib/PAF?: No Review of Systems Constitutional: Denies: Chills ENT: Reports: Other Symptoms (Denies rhinorrhea) Skin: Reports: Lesions (Bilateral lower extremity wound) Pulmonary: Denies: Dyspnea, Cough Cardiovascular: Reports: Lt Headedness; Denies: Chest Pain, Palpitations Gastrointestinal: Denies: Nausea, Vomiting, Abdominal Pain, Diarrhea, Co nstipation, Hematochezia Genitourinary: Denies: Dysuria, Frequency Hematologic: Reports: Other Hematologic (Denies easy bleeding and easy bruising) Musculoskeletal: Reports: Back Pain Neurological: Reports: Numbness (Chronic lower extremity numbness); Denies: Weakness Psych: Denies: Thoughts of Self Harm, Thoughts of Harming Other Physical Examination General Exam: Positive: Alert, Cooperative, No Acute Distress Eye Exam: Positive: Conjunctiva & lids normal, EOMI; Negative: Sclera icteric ENT Exam: Positive: Atraumatic, Mucous membr. moist/pink, Tongue Midline Neck Exam: Positive: Supple Chest Exam: Positive: Clear to auscultation, Normal air movement; Negative: Rales, Rhonchi, Wheezing Heart Exam: Positive: Rate Normal, Regular Rhythm, Normal S1, Normal S2, Other; Negative: Murmurs Abdomen Exam: Positive: Normal bowel sounds, Soft; Negative: Tenderness Extremity Exam: Positive: Swelling Skin Exam: Positive: Breakdown Neuro Exam: Positive: Strength at 5/5 X4 ext, Normal Tone, Sensation Intact, Cranial Nerves 3-12 NL (unable to evaluate CN8 due to history of hearing impairment) Psych Exam: Positive: Mental status NL, Mood NL, Oriented x 3 Vital Signs Vital Signs Date Time Temp Pulse Resp B/P (MAP) Pulse Ox O2 Delivery O2 Flow Rate FiO2 06/07/21 03:00 71 15 89/44 (59) 97 Nasal Cannula 2.0 06/06/21 21:48 100.5 Laboratory Data Labs 24H Laboratory Tests 2 06/06/21 22:40: Neutrophils (%) (Auto) , Nucleated Red Blood Cells % (auto) 0.0, Neutrophils 77H, Band Neutrophils 12H, Lymphocytes (Manual) 6L, Monocytes (Manual) 3, Metamyelocytes 2H, Platelet Estimate NORMAL, Anion Gap 7L, Glomerular Filtration Rate 36.3, Lactic Acid Level 3.7*H, Calcium Level 8.6L, Total Bilirubin 1.2H, Direct Bilirubin 0.3H, Aspartate Amino Transf (AST/SGOT) 69H, Alanine Aminotransferase (ALT/SGPT) 30, Alkaline Phosphatase 73, Total Creatine Kinase 1884H, Creatine Kinase MB 15.1H, Creatine Kinase MB Relative Index 0.80, Troponin I < 0.02, Total Protein 6.7, Albumin 3.0L, Albumin/Globulin Ratio 0.8, Lipase 45L 06/07/21 00:25: Coronavirus (COVID-19)(PCR) NEGATIVE, Influenza Type A (RT-PCR) NEGATIVE, Influenza Type B (RT-PCR) NEGATIVE, Respiratory Syncytial Virus (PCR) NEGATIVE CBC/BMP Laboratory Tests 06/06/21 22:40 Microbiology Microbiology 06/07/21 Blood Culture, Received Pending 06/07/21 Blood Culture, Received Pending Assessment/Plan 1. Suspected sepsis -hypotension, bilateral LE ulcers, leukocytosis, lactic acidosis -Most recent mean arterial pressure 59 questionable due to infectious etiology as patient has increased lactic acid level and leukocytosis -possible source of infection from bilateral lower extremity ulcer -Start Vancomycin and Zosyn -3L of NS bolus ordered. Hold home med lasix -wound culture of bilateral lower extremities, UA with reflex to urine culture 2. Syncope likely from mechanical fall -Telemonitor, consider echo and CELESTE in the morning - Head CT showed no acute abnormality -follow up cardiac marker 3. Mechanical fall -reported to happen after he slipped on the floor -fall precaution -patient reported back pain in midline mid-thoracic area. CT thoracic spine ordered. Bedrest -PT eval 4. Rhabdomyolysis, likely related to the fall -Aggressive fluid hydration with NS bolus -repeat renal function test in the morning 5. Bilateral lower extremity ulcer -wound care order 6. Hypercholesterolemia -continue home med statin 7. PAD -continue home med aspirin and clopidogrel 8. Hypertension -currently hypotensive -will hold home med atenolol and lasix 9. CHERI likely from rhabdomyolysis -NS bolus followed by maintenance fluid -Follow with BMP in AM DVT prophylaxis: heparin All of the above findings and plans were discussed with precepting attending 0 06/07/2021 morning Plan / VTE VTE Prophylaxis Ordered?: Yes GME ATTESTATION GME ATTESTATION My faculty preceptor for this patient encounter was physically present during the encounter and was fully available. All aspects of the patient interview, examination, medical decision making process, and medical care plan development were reviewed and approved by the faculty preceptor. The faculty preceptor is aware and concurs with the plan as stated in the body of this note and will attest to such by his/her cosignature. ATTENDING NOTE I, A Yousef, have independently examined this patient and performed my own physical exam, as well as reviewed the documentation and edited where necessary. I have discussed in detail with the resident / student the findings and plan of treatment as documented by the resident / student and edited their note. I agree with their findings and treatment plan and have edited their documentation. I will continue to follow the patient during this hospital stay. FAY VERDUZCO DO Jun 07, 2021 05:49 GIANNA CABRERA MD Jun 09, 2021 06:25
[2021-06-07] MEDS ORDERED: VANCOMYCIN HCL 1,000 MG, VIAL MATE ADAPTER 1 EACH in NS 250 ML IV SCH (06:00)
[2021-06-07] MEDS ORDERED: ALBUTEROL 90 MCG/ACT 8GM HFA INHALER INH PRN ×2 (06:40→06:50)
[2021-06-07] MEDS ORDERED: PSYL0.4C4 PO (06:42)
[2021-06-07] MEDS ORDERED: [UNRECOGNIZED DRUG - CODE] TOP (06:42)
[2021-06-07] MEDS ORDERED: REFRSOL OU (06:42)
[2021-06-07] MEDS ORDERED: FISH1000 PO (06:42)
[2021-06-07] MEDS ORDERED: ASPI-161 PO (06:42)
[2021-06-07] MEDS ORDERED: NYST10CR EXT (06:46)
[2021-06-07] MEDS ORDERED: OCUS0.02 EXT (06:47)
[2021-06-07] MEDS ORDERED: HOME MED LIST COMPLETE! XX SCH (06:50)
[2021-06-07] MEDS ORDERED: METAMUCIL (PSYLLIUM) PACKET PO PRN (06:50)
[2021-06-07] MEDS ORDERED: NYSTATIN CREAM 15 GM EXT PRN (06:50)
[2021-06-07] MEDS ORDERED: POLYVINYL ALCOHOL OPHTH SOLN 15 ML(LIQUITEARS) OU PRN (06:50)
[2021-06-07] MEDS ORDERED: VANCOMYCIN HCL 1,000 MG, VIAL MATE ADAPTER 1 EACH in NS 250 ML IV ONE (07:00)
--- NOTE | 2021-06-07 07:01 | REPVR ---
PROCEDURE INFORMATION: Exam: CT Thoracic Spine Without Contrast Exam date and time: 06/07/2021 6:44 AM Age: 81 years old Clinical indication: Injury or trauma; Fall; Blunt trauma (contusions or hematomas); Additional info: Fall, back pain TECHNIQUE: Imaging protocol: Computed tomography images of the thoracic spine without contrast. Radiation optimization: All CT scans at this facility use at least one of these dose optimization techniques: automated exposure control; mA and/or kV adjustment per patient size (includes targeted exams where dose is matched to clinical indication); or iterative reconstruction. COMPARISON: CT Spine,cervical w/o contrast 06/06/2021 10:53 PM FINDINGS: Vertebrae: Mid to lower anterior thoracic and upper lumbar spine degenerative changes. Discs/Spinal canal/Neural foramina: No significant disc protrusion. No severe spinal canal stenosis. No significant neural foraminal narrowing. Soft tissues: Unremarkable. IMPRESSION: No CT evidence of acute traumatic thoracic spine injury. Electronically signed by: Paresh Lafleur On 06/07/2021 07:01:06 AM
[2021-06-07] MEDS: ADVAIR HFA 115/21MCG INHALER INH SCH ×2 (08:15→19:20)
[2021-06-07] MEDS: NS 1,000 ML IV SCH ×2 (08:28→11:59)
[2021-06-07] MEDS: ASPIRIN 81 MG CHEW TABLET PEG SCH (09:22)
[2021-06-07] MEDS: PRAVASTATIN 20 MG TAB PO SCH (09:22)
[2021-06-07] MEDS: POTASSIUM CHLORIDE 10 MEQ SR TABLET PO SCH ×2 (09:22→20:47)
[2021-06-07] MEDS: CLOPIDOGREL 75 MG TAB PO SCH (09:22)
[2021-06-07] MEDS: HEPARIN SOD (PORCINE) 5000UNITS/ML 1ML VIAL/SYRINGE SQ SCH ×3 (09:25→20:56)
[2021-06-07 09:59] LABS: HEMATOCRIT 36.1 % (42.0-52.0); HEMOGLOBIN 11.2 g/dl (13.5-17.5); MEAN CORPUSCULAR HEMOGLOBIN 30.2 pg (27.0-33.0); MEAN CORPUSCULAR VOLUME 97.3 fl (80.0-96.0); PLATELET COUNT, AUTOMATED 222 10^3/uL (150-450); RED BLOOD COUNT 3.71 10^6/uL (4.30-6.10)
[2021-06-07 10:05] LABS: WHITE BLOOD COUNT 29.6 10^3/uL (4.0-10.0)
--- NOTE | 2021-06-07 10:13 | REP ---
INDICATION: Syncope, bilateral lower extremity swelling, recent surgery COMPARISON: None TECHNIQUE: Kahn scale and color Doppler evaluation using linear high frequency transducer. FINDINGS: Ultrasound examination of the right and left lower extremity deep venous structures from the common femoral vein through the popliteal veins along with right tibial vein demonstrate normal compressibility flow and wave patterns in response to respiration and augmentation. Calf veins were poorly evaluated due to edema. There is no evidence for deep venous thrombosis. IMPRESSION: No evidence for deep venous thrombosis as detailed above. <Electronically signed by Xavier Maradiaga > 06/07/21 [id number]
[2021-06-07 10:29] LABS: ALBUMIN 2.7 GM/DL (3.2-5.2); BILIRUBIN,TOTAL 1.1 MG/DL (0.2-1.0); CALCIUM LEVEL 8.2 MG/DL (8.8-10.2); CREATININE FOR GFR 1.43 MG/DL (0.70-1.30); GLOMERULAR FILTRATION RATE 50.4 (>35); MB/CK RELATIVE INDEX 0.6 (< OR =4); POTASSIUM SERUM 4.6 MEQ/L (3.5-5.1); TOTAL PROTEIN 6.5 GM/DL (6.4-8.2); TROPONIN I 0.02 NG/ML (< 0.10)
[2021-06-07] MEDS: OMEGA-3 1000MG CAPSULE PO SCH (10:44)
[2021-06-07 10:45] LABS: ERYTHROCYTE SEDIMENTATION RATE 52 mm/hr (0-20)
[2021-06-07 11:03] LABS: LYMPHOCYTES 6 % (16-44); METAMYELOCYTES 1 % (0-0); MONOCYTES 4 % (0-5); NEUTROPHILS 85 % (28-66); PLATELET ESTIMATE NORMAL (NORMAL)
[2021-06-07 11:30] VITALS: BP 105/54
[2021-06-07] MEDS ORDERED: SLF 3 ML SYR IV PRN (16:30)
[2021-06-07 16:41] VITALS: BP 127/61
--- NOTE | 2021-06-07 18:15 | IPNPDOC ---
Subjective Date Seen The patient was seen on 06/07/21. Subjective Chief Complaint/HPI Mr. Montalvo is an 81-year-old male with deafness, hypertension, NICOLAS, DM type II, and PAD status post bilateral lower extremity angioplasties who presents with mechanical fall and found to have CHERI and rhabdomyolysis. He was seen in the ED this morning. I communicated with him through writing. He denies any chest pain or dyspnea. He reported pain from his left foot. Otherwise, patient had hypotension on admission without tachycardia. He had an elevated lactic acidosis. Patient was given at least 30 mg/kg of fluid. Blood pressure is stable now. Later in the afternoon, the daughter came by and had question. We had a discussion about his infection, sepsis, rhabdomyolysis, and diabetes mellitus. At the same time, it was noted that patient had crackles in his lungs. He is saturating okay at room air but starting to feeling short of breath. His lactic acidosis has resolved. Will hold off of fluids at this time. He had about 6.5L in total today. Objective Physical Examination General Exam: Positive: Alert, Cooperative Eye Exam: Positive: EOMI; Negative: Sclera icteric ENT Exam: Positive: Atraumatic, Tongue Midline Neck Exam: Positive: Supple Chest Exam: Positive: Rales Heart Exam: Positive: Rate Normal, Regular Rhythm Abdomen Exam: Positive: Normal bowel sounds, Soft; Negative: Tenderness Skin Exam: Positive: Breakdown Neuro Exam: Positive: Other (Deaf) Psych Exam: Positive: Mental status NL, Mood NL Assessment /Plan Assessment Mr. Montalvo is an 81-year-old male with deafness, hypertension, NICOLAS, DM type II, and PAD status post bilateral lower extremity angioplasties who presents with mechanical fall and found to have CHERI and rhabdomyolysis. He may have had a foot infection which made him hypotensive. Then he lost his balance and fell on the ground causing his rhabdomyolysis and CEHRI. Treating his sepsis and foot infection with Zosyn and vancomycin. Rhabdomyolysis and CHERI being treating with IVF. Plan/VTE VTE Prophylaxis Ordered?: Yes Plan 1. Sepsis secondary to foot infection -Received more than 30mg/kg of fluid -Possibly diabetic foot infection -Vancomycin and Zosyn day 1 2. CHERI secondary to rhabdomyolysis -Baseline creatinine at 1.2. Creatinine on admission 1.9 -Rhabdomyolysis secondary to being on ground for long period of time -Aggressive IVF 3. Acute iatrogenic diastolic CHF -Secondary IVF -Will order CXR and discontinue IVF -Patient saturating okay at room air. If starts to become hypoxic, would recommend IV Lasix. 4. Peripheral arterial disease Continue aspirin, Plavix, and pravastatin 5. Hypertension Currently patient is hypotensive Hold atenolol and Lasix 6. DVT prophylaxis Heparin Disposition: Pending improvement in renal function and rhabdomyolysis. Pending clinical improvement VS, I&O, 24H, Fishbone Vital Signs/I&O Vital Signs Date Time Temp Pulse Resp B/P (MAP) Pulse Ox O2 Delivery O2 Flow Rate FiO2 06/07/21 10:46 67 18 94 Room Air 06/07/21 10:30 105/52 (69) 06/07/21 07:30 98.3 06/07/21 03:00 2.0 Laboratory Data 24H LABS Laboratory Tests 2 06/06/21 22:40: Neutrophils (%) (Auto) , Nucleated Red Blood Cells % (auto) 0.0, Neutrophils 77H, Band Neutrophils 12H, Lymphocytes (Manual) 6L, Monocytes (Manual) 3, Metamyelocytes 2H, Platelet Estimate NORMAL, Anion Gap 7L, Glomerular Filtration Rate 36.3, Lactic Acid Level 3.7*H, Calcium Level 8.6L, Total Bilirubin 1.2H, Direct Bilirubin 0.3H, Aspartate Amino Transf (AST/SGOT) 69H, Alanine Aminotransferase (ALT/SGPT) 30, Alkaline Phosphatase 73, Total Creatine Kinase 1884H, Creatine Kinase MB 15.1H, Creatine Kinase MB Relative Index 0.80, Troponin I < 0.02, Total Protein 6.7, Albumin 3.0L, Albumin/Globulin Ratio 0.8, Lipase 45L 06/07/21 00:25: Coronavirus (COVID-19)(PCR) NEGATIVE, Influenza Type A (RT-PCR) NEGATIVE, Influenza Type B (RT-PCR) NEGATIVE, Respiratory Syncytial Virus (PCR) NEGATIVE 06/07/21 05:40: Neutrophils (%) (Auto) , Nucleated Red Blood Cells % (auto) 0.0, Neutrophils 85H, Band Neutrophils 4, Lymphocytes (Manual) 6L, Monocytes (Manual) 4, Metamyelocytes 1H, Platelet Estimate NORMAL, Anion Gap 6L, Glomerular Filtration Rate 50.4, Calcium Level 8.2L, Total Bilirubin 1.1H, Aspartate Amino Transf (AST/SGOT) 105H, Alanine Aminotransferase (ALT/SGPT) 36, Alkaline Phosphatase 71, Total Creatine Kinase 3515#H, Creatine Kinase MB 21.0H, Creatine Kinase MB R elative Index 0.60, Troponin I 0.02, Total Protein 6.5, Albumin 2.7L, Albumin/Globulin Ratio 0.7, Macrocytosis 1+, Erythrocyte Sedimentation Rate 52H, Lactic Acid Followup at 4 Hours 2.5*H, Procalcitonin 32.62 06/07/21 08:36: Urine Color YELLOW, Urine Appearance HAZY, Urine pH 5.0, Urine Specific [place] 1.021, Urine Protein 1+H, Urine Glucose (UA) NEGATIVE, Urine Ketones NEGATIVE, Urine Blood 2+H, Urine Nitrite NEGATIVE, Urine Bilirubin NEGATIVE, Urine Urobilinogen 0.2, Urine Leukocyte Esterase NEGATIVE, Urine WBC (Auto) 1, Urine RBC (Auto) 2, Urine Hyaline Casts (Auto) 3, Urine Bacteria (Auto) NEGATIVE, Urine Squamous Epithelial Cells 1, Urine Sperm (Auto) 06/07/21 12:39: Lactic Acid Level 1.2, C-Reactive Protein, Quantitative 17.40H CBC/BMP Laboratory Tests 06/06/21 22:40 06/07/21 05:40 Microbiology Microbiology 06/07/21 Blood Culture, Received Pending 06/07/21 Blood Culture, Received Pending JEFFERY ESTRADA DO Jun 07, 2021 14:29
--- NOTE | 2021-06-07 18:53 | ECGEPIP ---
[facility] - ED Test Date: 2021-06-06 Pat Name: CHASIDY LEVY Department: Room: [place] [address] Gender: Male [employer]: ED : [id number] Requested By: MARTINA Lynch Order Number: [id number] Reading MD: Jillian Davenport Measurements Intervals [place] Rate: 74 P: 60 SC: 194 QRS: -43 QRSD: 160 T: 60 QT: 424 QTc: 470 Interpretive Statements Normal sinus rhythm Left axis deviation Right bundle branch block Minimal voltage criteria for LVH, may be normal variant ( R in aVL ) No prior Electronically Signed on 06-07-2021 18:53:28 EDT by Jillian Davenport
--- NOTE | 2021-06-07 18:56 | REP ---
INDICATION: SOB, fluid overload? COMPARISON: 06/06/2021 TECHNIQUE: Portable AP view of the chest FINDINGS: The mediastinum and cardiac silhouette are stable and within normal limits for portable technique. The lung henry are clear without acute consolidation, effusion, or pneumothorax. Skeletal structures are intact. IMPRESSION: No acute cardiopulmonary process appreciated. <Electronically signed by Xavier Maradiaga > 06/07/21 [id number]
[2021-06-07 20:00] VITALS: BP 134/61
[2021-06-07] MEDS: PIPERACILLIN/TAZOBACTAM SOD 3.375 GM in D5W MINI-BAG PLUS 50 ML IV SCH (20:46)
[2021-06-07] MEDS: LATANOPROST 0.005% OPHTH SOLN 2.5 ML OU SCH (21:00)
[2021-06-07] MEDS: VANCOMYCIN HCL 1,000 MG, VIAL MATE ADAPTER 1 EACH in NS 250 ML IV SCH (21:30)
[2021-06-07] MEDS: SLF 3 ML SYR IV SCH (22:42)
[2021-06-08] VITALS: BP 144/61
[2021-06-08] MEDS: PIPERACILLIN/TAZOBACTAM SOD 3.375 GM in D5W MINI-BAG PLUS 50 ML IV SCH ×4 (02:37→20:08)
[2021-06-08] MEDS: ACETAMINOPHEN TAB 650MG DOSE (2X325MG) PO PRN ×2 (02:40→10:41)
[2021-06-08 06:00] LABS: HEMATOCRIT 31.3 % (42.0-52.0); HEMOGLOBIN 9.8 g/dl (13.5-17.5); MEAN CORPUSCULAR HEMOGLOBIN 30.2 pg (27.0-33.0); MEAN CORPUSCULAR HGB CONC 31.3 g/dl (32.0-36.5); MEAN CORPUSCULAR VOLUME 96.6 fl (80.0-96.0); PLATELET COUNT, AUTOMATED 169 10^3/uL (150-450); RED BLOOD COUNT 3.24 10^6/uL (4.30-6.10); WHITE BLOOD COUNT 16.2 10^3/uL (4.0-10.0)
[2021-06-08] MEDS: SLF 3 ML SYR IV SCH ×3 (06:31→22:00)
[2021-06-08 06:40] LABS: BLOOD UREA NITROGEN 20 MG/DL (7-18); CALCIUM LEVEL 7.4 MG/DL (8.8-10.2); CARBON DIOXIDE LEVEL 22 MEQ/L (21-32); CHLORIDE LEVEL 114 MEQ/L (98-107); CPK CREATINE PHOSPHOKINASE 2540 U/L (39-308); GLOMERULAR FILTRATION RATE > 60.0 (>35); GLUCOSE, FASTING 121 MG/DL (70-100); POTASSIUM SERUM 3.9 MEQ/L (3.5-5.1); SODIUM LEVEL 144 MEQ/L (136-145)
[2021-06-08] MEDS: ADVAIR HFA 115/21MCG INHALER INH SCH ×2 (07:24→19:17)
[2021-06-08] MEDS: NS 1,000 ML IV SCH ×2 (07:25→16:43)
[2021-06-08 08:00] VITALS: BP 143/60
[2021-06-08] MEDS: HEPARIN SOD (PORCINE) 5000UNITS/ML 1ML VIAL/SYRINGE SQ SCH ×2 (08:01→21:27)
[2021-06-08] MEDS: ASPIRIN 81 MG CHEW TABLET PEG SCH (08:34)
[2021-06-08] MEDS: POTASSIUM CHLORIDE 10 MEQ SR TABLET PO SCH ×2 (08:35→21:27)
[2021-06-08] MEDS: CLOPIDOGREL 75 MG TAB PO SCH (08:35)
[2021-06-08] MEDS: PRAVASTATIN 20 MG TAB PO SCH (08:35)
[2021-06-08] MEDS: FUROSEMIDE 40MG/4ML VIAL (J1940) IV SCH ×2 (08:36→16:43)
[2021-06-08] MEDS: VANCOMYCIN HCL 1,000 MG, VIAL MATE ADAPTER 1 EACH in NS 250 ML IV SCH ×2 (08:36→21:26)
[2021-06-08] MEDS: OMEGA-3 1000MG CAPSULE PO SCH ×2 (08:38→10:17)
[2021-06-08] MEDS ORDERED: MIRALAX *UNIT DOSE* 17GM PACKET PO PRN (09:55)
[2021-06-08] MEDS: DOCUSATE SODIUM 100MG CAPSULE PO SCH ×2 (10:17→21:00)
[2021-06-08] MEDS: oxyCODONE 5MG TAB PO PRN ×2 (11:59→20:09)
[2021-06-08 12:00] VITALS: BP 120/79
[2021-06-08 16:00] VITALS: BP 158/70
--- NOTE | 2021-06-08 19:11 | IPNPDOC ---
Subjective Date Seen The patient was seen on 06/08/21. Subjective Chief Complaint/HPI Mr. Montalvo is an 81-year-old male with deafness, hypertension, NICOLAS, DM type II, and PAD status post bilateral lower extremity angioplasties who presents with mechanical fall and found to have CHERI and rhabdomyolysis. This morning he denies any chest pain. He still has some shortness of breath. Patient's CPK is still elevated. Explained to patient that we will need to continue with IV fluids to flush the muscle enzymes, but I will be giving him IV Lasix to help with his shortness of breath. If he were to feel increasing dyspnea he should contact someone right away. Objective Physical Examination General Exam: Positive: Alert, Cooperative Eye Exam: Positive: EOMI; Negative: Sclera icteric ENT Exam: Positive: Atraumatic, Tongue Midline Neck Exam: Positive: Supple Chest Exam: Positive: Rales Heart Exam: Positive: Rate Normal, Regular Rhythm Abdomen Exam: Positive: Normal bowel sounds, Soft; Negative: Tenderness Skin Exam: Positive: Breakdown Neuro Exam: Positive: Other (Deaf) Psych Exam: Positive: Mental status NL, Mood NL Assessment /Plan Assessment Mr. Montalvo is an 81-year-old male with deafness, hypertension, NICOLAS, DM type II, and PAD status post bilateral lower extremity angioplasties who presents with mechanical fall and found to have CHERI and rhabdomyolysis. He may have had a foot infection which made him hypotensive. Then he lost his balance and fell on the ground causing his rhabdomyolysis and CHERI. Treating his sepsis and foot infection with Zosyn and vancomycin. Rhabdomyolysis and CHERI being treating with IVF. Due to patient's CHF, he will receive IV Lasix at the same time Plan/VTE VTE Prophylaxis Ordered?: Yes Plan 1. Sepsis secondary to foot infection -Received more than 30mg/kg of fluid -Possibly diabetic foot infection. Will order an MRI of the feet -Vancomycin and Zosyn day 2 2. CHERI secondary to rhabdomyolysis -Baseline creatinine at 1.2. Creatinine on admission 1.9 -Rhabdomyolysis secondary to being on ground for long period of time -Aggressive IVF 3. Acute iatrogenic diastolic CHF Patient's echocardiogram on 05/31/2021 demonstrates an EF of 65% with grade 1 diastolic dysfunction We will need to continue flushing patient's kidneys due to rhabdomyolysis We will give IV Lasix at the same time to help with his lungs 4. Peripheral arterial disease Continue aspirin, Plavix, and pravastatin 5. Hypertension Currently patient is hypotensive Hold atenolol and Lasix 6. Insulin resistance -About a year ago, patient's HbA1C was 7.7. Now HbA1c is 5.9 -Continue with carb consistent diet 7. DVT prophylaxis Heparin Disposition: Pending improvement in renal function and rhabdomyolysis. Pending clinical improvement VS, I&O, 24H, Fishbone Vital Signs/I&O Vital Signs Date Time Temp Pulse Resp B/P (MAP) Pulse Ox O2 Delivery O2 Flow Rate FiO2 06/08/21 16:00 97.7 65 21 158/70 (99) 98 Room Air 06/08/21 12:29 2.0 I&O- Last 24 Hours up to 6 AM 06/08/21 06:00 Intake Total 4960 ml Output Total 1025 ml Balance 3935 ml Laboratory Data 24H LABS Laboratory Tests 2 06/07/21 19:53: Bedside Glucose (Misc Panel) 144H 06/08/21 05:41: Nucleated Red Blood Cells % (auto) 0.0, Anion Gap 8, Glomerular Filtration Rate > 60.0, Calcium Level 7.4L, Total Creatine Kinase 2540H 06/08/21 13:07: Bedside Glucose (Misc Panel) 122H 06/08/21 17:46: Bedside Glucose (Misc Panel) 412H 06/08/21 17:47: Bedside Glucose (Misc Panel) 118H CBC/BMP Laboratory Tests 06/08/21 05:41 Microbiology Microbiology 06/07/21 Blood Culture - Preliminary, Resulted No growth after 24 hours . All specim... 06/07/21 Blood Culture - Preliminary, Resulted No growth after 24 hours . All specim... JEFFERY ESTRADA DO Jun 08, 2021 19:11
[2021-06-08 20:00] VITALS: BP 148/63
[2021-06-08] MEDS: LATANOPROST 0.005% OPHTH SOLN 2.5 ML OU SCH (21:27)
[2021-06-09] VITALS: BP 139/65
[2021-06-09] MEDS: NS 1,000 ML IV SCH ×4 (00:15→23:52)
[2021-06-09] MEDS: PIPERACILLIN/TAZOBACTAM SOD 3.375 GM in D5W MINI-BAG PLUS 50 ML IV SCH ×4 (02:02→20:49)
[2021-06-09] MEDS: oxyCODONE 5MG TAB PO PRN ×3 (02:07→14:28)
[2021-06-09 04:00] VITALS: BP 121/58
[2021-06-09 04:05] LABS: HEMATOCRIT 32.3 % (42.0-52.0); HEMOGLOBIN 10.4 g/dl (13.5-17.5); MEAN CORPUSCULAR HEMOGLOBIN 30.3 pg (27.0-33.0); MEAN CORPUSCULAR HGB CONC 32.2 g/dl (32.0-36.5); MEAN CORPUSCULAR VOLUME 94.2 fl (80.0-96.0); PLATELET COUNT, AUTOMATED 181 10^3/uL (150-450); RED BLOOD COUNT 3.43 10^6/uL (4.30-6.10)
[2021-06-09 04:42] LABS: BLOOD UREA NITROGEN 14 MG/DL (7-18); CALCIUM LEVEL 7.9 MG/DL (8.8-10.2); CARBON DIOXIDE LEVEL 26 MEQ/L (21-32); CHLORIDE LEVEL 112 MEQ/L (98-107); CPK CREATINE PHOSPHOKINASE 1765 U/L (39-308); CREATININE FOR GFR 1.09 MG/DL (0.70-1.30); GLOMERULAR FILTRATION RATE > 60.0 (>35); GLUCOSE, FASTING 121 MG/DL (70-100); POTASSIUM SERUM 3.7 MEQ/L (3.5-5.1); SODIUM LEVEL 143 MEQ/L (136-145)
[2021-06-09] MEDS: SLF 3 ML SYR IV SCH ×3 (06:00→22:32)
[2021-06-09] MEDS: ADVAIR HFA 115/21MCG INHALER INH SCH ×2 (07:11→19:51)
[2021-06-09 08:00] VITALS: BP 143/66
--- NOTE | 2021-06-09 10:12 | REP ---
INDICATION: pain, tenderness, erythema (sepstic arthritis?). COMPARISON: None. TECHNIQUE: Axial images through the right knee with coronal and sagittal reformations. FINDINGS: Moderate to significant infiltration involves the surrounding subcutaneous tissue with mild skin thickening and small joint effusion. Findings are most suggestive of cellulitis and should be correlated clinically. Septic joint less likely cannot be excluded. The osseous structures themselves demonstrate relatively moderate osteoarthritic changes including cortical irregularity and subtle spurring as well as periarticular sclerosis and primarily medial and patellofemoral joint space narrowing. IMPRESSION: 1. Findings of the subcutaneous tissues with small amount of joint effusion most compatible with cellulitis and clinical correlation is recommended. The extent of the joint effusion speaks less likely for septic arthritis which cannot definitively be excluded. 2. Relatively mild/moderate osteoarthritic degenerative changes given the patient's age. <Electronically signed by Xavier Maradiaga > 06/09/21 1006
[2021-06-09] MEDS: FUROSEMIDE 40MG/4ML VIAL (J1940) IV SCH ×2 (10:17→18:07)
[2021-06-09] MEDS: HEPARIN SOD (PORCINE) 5000UNITS/ML 1ML VIAL/SYRINGE SQ SCH ×2 (10:17→20:48)
[2021-06-09] MEDS: POTASSIUM CHLORIDE 10 MEQ SR TABLET PO SCH ×2 (10:18→20:48)
[2021-06-09] MEDS: OMEGA-3 1000MG CAPSULE PO SCH (10:18)
[2021-06-09] MEDS: DOCUSATE SODIUM 100MG CAPSULE PO SCH ×2 (10:18→20:49)
[2021-06-09] MEDS: ASPIRIN 81 MG CHEW TABLET PEG SCH (10:19)
[2021-06-09] MEDS: PRAVASTATIN 20 MG TAB PO SCH (10:19)
[2021-06-09] MEDS: CLOPIDOGREL 75 MG TAB PO SCH (10:19)
--- NOTE | 2021-06-09 11:28 | IPNPDOC ---
Subjective Date Seen The patient was seen on 06/09/21. Subjective Chief Complaint/HPI Mr. Montalvo is an 81-year-old male with deafness, hypertension, NICOLAS, DM type II, and PAD status post bilateral lower extremity angioplasties who presents with mechanical fall and found to have CHERI and rhabdomyolysis. This morning, his right knee was hurting. There was a small focal area of erythema. It was warm and very tenderness. The who knee looked swollen, but he does have chronic lower extremity edema. Ordered for CT right knee which demonstrated a small amount of fluid in right knee. Unclear if septic arthritis or not. Will continue with broad spectrum IV antibiotics. Otherwise, no chest pain. He still has occasional dyspnea. Will continue IV lasix. Will have to continue IV fluids due to rhabdomyolysis. Objective Physical Examination General Exam: Positive: Alert, Cooperative Eye Exam: Positive: EOMI; Negative: Sclera icteric ENT Exam: Positive: Atraumatic, Tongue Midline Neck Exam: Positive: Supple Chest Exam: Positive: Rales Heart Exam: Positive: Rate Normal, Regular Rhythm Abdomen Exam: Positive: Normal bowel sounds, Soft; Negative: Tenderness Extremity Exam: Positive: Swelling Neuro Exam: Positive: Other (deaf) Psych Exam: Positive: Mental status NL, Mood NL Assessment /Plan Assessment Mr. Montalvo is an 81-year-old male with deafness, hypertension, NICOLAS, DM type II, and PAD status post bilateral lower extremity angioplasties who presents with mechanical fall and found to have CHERI and rhabdomyolysis. He may have had a foot infection which made him hypotensive. Then he lost his balance and fell on the ground causing his rhabdomyolysis and CHERI. Treating his sepsis and foot infection with Zosyn and vancomycin. Rhabdomyolysis and CHERI being treating with IVF. Due to patient's CHF, he will receive IV Lasix at the same time Plan/VTE VTE Prophylaxis Ordered?: Yes Plan 1. Sepsis secondary to foot infection -Received more than 30mg/kg of fluid -Possibly diabetic foot infection. Will order an MRI of the feet -Vancomycin and Zosyn day 3 2. Right knee cellulitis -Will continue with Vancomycin and Zosyn -Continue to monitor and re-evaluate 3. CHERI secondary to rhabdomyolysis -Baseline creatinine at 1.2. Creatinine on admission 1.9 -Rhabdomyolysis secondary to being on ground for long period of time -Aggressive IVF 4. Acute iatrogenic diastolic CHF Patient's echocardiogram on 05/31/2021 demonstrates an EF of 65% with grade 1 diastolic dysfunction We will need to continue flushing patient's kidneys due to rhabdomyolysis We will give IV Lasix at the same time to help with his lungs 5. Peripheral arterial disease Continue aspirin, Plavix, and pravastatin 6. Hypertension Currently patient is hypotensive Hold atenolol and Lasix 7. Insulin resistance -About a year ago, patient's HbA1C was 7.7. Now HbA1c is 5.9 -Continue with carb consistent diet 8. DVT prophylaxis Heparin Disposition: Pending improvement in renal function and rhabdomyolysis. Pending clinical improvement VS, I&O, 24H, Fishbone Vital Signs/I&O Vital Signs Date Time Temp Pulse Resp B/P (MAP) Pulse Ox O2 Delivery O2 Flow Rate FiO2 06/09/21 08:42 18 06/09/21 08:00 99.4 76 143/66 (91) 92 Room Air 06/08/21 12:29 2.0 I&O- Last 24 Hours up to 6 AM 06/09/21 06:00 Intake Total 4030 ml Output Total 5275 ml Balance -1245 ml Laboratory Data 24H LABS Laboratory Tests 2 06/08/21 13:07: Bedside Glucose (Misc Panel) 122H 06/08/21 17:46: Bedside Glucose (Misc Panel) 412H 06/08/21 17:47: Bedside Glucose (Misc Panel) 118H 06/08/21 19:57: Vancomycin Level Trough 19.1 06/08/21 21:26: Bedside Glucose (Misc Panel) 124H 06/09/21 03:38: Nucleated Red Blood Cells % (auto) 0.0, Anion Gap 5L, Glomerular Filtration Rate > 60.0, Calcium Level 7.9L, Total Creatine Kinase 1765H 06/09/21 09:20: CBC/BMP Laboratory Tests 06/09/21 03:38 Microbiology Microbiology 06/07/21 Blood Culture - Preliminary, Resulted No Growth after 48 hours. All Specime... 06/07/21 Blood Culture - Preliminary, Resulted No Growth after 48 hours. All Specime... JEFFERY ESTRADA DO Jun 09, 2021 11:28
[2021-06-09] MEDS: VANCOMYCIN HCL 1,000 MG, VIAL MATE ADAPTER 1 EACH in NS 250 ML IV SCH ×2 (12:47→23:49)
[2021-06-09 16:00] VITALS: BP 123/57
[2021-06-09] MEDS: KETOROLAC 30 MG/ML 1ML VIAL IV PRN (18:07)
[2021-06-09 20:00] VITALS: BP 122/88
[2021-06-09] MEDS: PANTOPRAZOLE 40MG TAB (PROTONIX) PO SCH (20:48)
[2021-06-09] MEDS ORDERED: MORPHINE 2 MG/ML 1ML VIAL (J2270) IV ONE (21:00)
[2021-06-09] MEDS: LATANOPROST 0.005% OPHTH SOLN 2.5 ML OU SCH (21:00)
[2021-06-10] VITALS: BP 154/65
[2021-06-10] MEDS: PIPERACILLIN/TAZOBACTAM SOD 3.375 GM in D5W MINI-BAG PLUS 50 ML IV SCH ×4 (02:00→20:14)
[2021-06-10 04:00] VITALS: BP 130/65
[2021-06-10] MEDS: SLF 3 ML SYR IV SCH ×3 (05:02→20:19)
[2021-06-10 06:02] LABS: HEMATOCRIT 32.6 % (42.0-52.0); HEMOGLOBIN 10.5 g/dl (13.5-17.5); MEAN CORPUSCULAR HEMOGLOBIN 30.4 pg (27.0-33.0); MEAN CORPUSCULAR HGB CONC 32.2 g/dl (32.0-36.5); MEAN CORPUSCULAR VOLUME 94.5 fl (80.0-96.0); PLATELET COUNT, AUTOMATED 179 10^3/uL (150-450); RED BLOOD COUNT 3.45 10^6/uL (4.30-6.10); WHITE BLOOD COUNT 6.9 10^3/uL (4.0-10.0)
[2021-06-10] MEDS: oxyCODONE 5MG TAB PO PRN ×3 (06:13→20:15)
[2021-06-10 06:27] LABS: C REACTIVE PROTEIN QUANTITATIV 11.9 MG/DL (0.00-0.30); CALCIUM LEVEL 8.1 MG/DL (8.8-10.2); CREATININE FOR GFR 1.23 MG/DL (0.70-1.30); POTASSIUM SERUM 3.9 MEQ/L (3.5-5.1)
[2021-06-10 07:03] LABS: ERYTHROCYTE SEDIMENTATION RATE 91 mm/hr (0-20)
[2021-06-10] MEDS: ADVAIR HFA 115/21MCG INHALER INH SCH ×2 (07:23→19:42)
[2021-06-10] MEDS: OMEGA-3 1000MG CAPSULE PO SCH (08:47)
[2021-06-10] MEDS: PRAVASTATIN 20 MG TAB PO SCH (08:47)
[2021-06-10] MEDS: ASPIRIN 81 MG CHEW TABLET PEG SCH (08:47)
[2021-06-10] MEDS: CLOPIDOGREL 75 MG TAB PO SCH (08:48)
[2021-06-10] MEDS: POTASSIUM CHLORIDE 10 MEQ SR TABLET PO SCH ×2 (08:48→20:14)
[2021-06-10] MEDS: HEPARIN SOD (PORCINE) 5000UNITS/ML 1ML VIAL/SYRINGE SQ SCH ×2 (08:49→20:14)
[2021-06-10] MEDS: FUROSEMIDE 40MG/4ML VIAL (J1940) IV SCH ×2 (08:50→17:32)
[2021-06-10] MEDS: DOCUSATE SODIUM 100MG CAPSULE PO SCH ×2 (09:00→21:00)
--- NOTE | 2021-06-10 10:24 | REP ---
INDICATION: right ankle pain COMPARISON: None. TECHNIQUE: AP, lateral, bilateral oblique views. FINDINGS: Age-related osteopenia and degenerative changes are appreciated. Overlying soft tissue swelling is suggested. No acute fracture or dislocation. Ankle mortise intact. Lateral view demonstrates small calcaneal heel spur. IMPRESSION: Swelling. Age-related osteopenia and degenerative changes. <Electronically signed by Xavier Maradiaga > 06/10/21 1020
--- NOTE | 2021-06-10 13:11 | IPNPDOC ---
Subjective Date Seen The patient was seen on 06/10/21. Subjective Chief Complaint/HPI Mr. Montalvo is an 81-year-old male with deafness, hypertension, NICOLAS, DM type II, and PAD status post bilateral lower extremity angioplasties who presents with mechanical fall and found to have CHERI and rhabdomyolysis. This morning, he denies any chest pain. His dyspnea has resolved. He is now having right ankle pain. Both legs are elevated due to swelling and his right ankle keeps leaning outwards. XR right ankle negative for fracture. Otherwise, still has tenderness of right knee. Will order US right knee to evaluate for effusion. If effusion present, will need to tap fluid for sample. Objective Physical Examination General Exam: Positive: Alert, Cooperative Eye Exam: Positive: EOMI; Negative: Sclera icteric ENT Exam: Positive: Atraumatic, Tongue Midline Neck Exam: Positive: Supple Chest Exam: Positive: Rales Heart Exam: Positive: Rate Normal, Regular Rhythm Abdomen Exam: Positive: Normal bowel sounds, Soft; Negative: Tenderness Extremity Exam: Positive: Swelling Neuro Exam: Positive: Other (deaf) Psych Exam: Positive: Mental status NL, Mood NL Assessment /Plan Assessment Mr. Montalvo is an 81-year-old male with deafness, hypertension, NICOLAS, DM type II, and PAD status post bilateral lower extremity angioplasties who presents with mechanical fall and found to have CHERI and rhabdomyolysis. He may have had a foot infection which made him hypotensive. Then he lost his balance and fell on the ground causing his rhabdomyolysis and CHERI. Treating his sepsis and foot infection with Zosyn and vancomycin. Rhabdomyolysis and CHERI being treating with IVF. Due to patient's CHF, he will receive IV Lasix at the same time Plan/VTE VTE Prophylaxis Ordered?: Yes Plan 1. Sepsis secondary to foot infection -Received more than 30mg/kg of fluid -Possibly diabetic foot infection. Will order an MRI of the feet to look for osteo -Vancomycin and Zosyn day 4 2. Right knee cellulitis -Will continue with Vancomycin and Zosyn -Continue to monitor and re-evaluate 3. CHERI secondary to rhabdomyolysis -Baseline creatinine at 1.2. Creatinine on admission 1.9 -Rhabdomyolysis secondary to being on ground for long period of time -Aggressive IVF 4. Acute iatrogenic decompensated diastolic CHF Patient's echocardiogram on 05/31/2021 demonstrates an EF of 65% with grade 1 diastolic dysfunction We will need to continue flushing patient's kidneys due to rhabdomyolysis We will give IV Lasix at the same time to help with his lungs -Improved 5. Peripheral arterial disease Continue aspirin, Plavix, and pravastatin 6. Hypertension Currently patient is hypotensive Hold atenolol and Lasix 7. Insulin resistance -About a year ago, patient's HbA1C was 7.7. Now HbA1c is 5.9 -Continue with carb consistent diet 8. DVT prophylaxis Heparin Disposition: Pending clinical improvement VS, I&O, 24H, Fishbone Vital Signs/I&O Vital Signs Date Time Temp Pulse Resp B/P (MAP) Pulse Ox O2 Delivery O2 Flow Rate FiO2 06/10/21 07:10 16 06/10/21 04:00 98.1 75 130/65 (86) 95 Room Air 06/08/21 12:29 2.0 I&O- Last 24 Hours up to 6 AM 06/10/21 06:00 Intake Total 3800 ml Output Total 3660 ml Balance 140 ml Laboratory Data 24H LABS Laboratory Tests 2 06/09/21 19:46: Bedside Glucose (Misc Panel) 112H 06/10/21 05:45: Nucleated Red Blood Cells % (auto) 0.0, Erythrocyte Sedimentation Rate 91H, Anion Gap 4L, Glomerular Filtration Rate 60.0, Calcium Level 8.1L, Total Creatine Kinase 700H, C-Reactive Protein, Quantitative 11.90H 06/10/21 11:42: Bedside Glucose (Misc Panel) 144H CBC/BMP Laboratory Tests 06/10/21 05:45 Microbiology Microbiology 06/07/21 Blood Culture - Preliminary, Resulted No Growth after 72 hours. All specime... 06/07/21 Blood Culture - Preliminary, Resulted No Growth after 72 hours. All specime... JEFFERY ESTRADA DO Jun 10, 2021 13:11
[2021-06-10] MEDS: NS 1,000 ML IV SCH (13:12)
[2021-06-10 14:00] VITALS: BP 105/61
--- NOTE | 2021-06-10 15:00 | REP ---
INDICATION: Evaluate right knee for joint effusion COMPARISON: Correlation with CT dated 06/09/2021 TECHNIQUE: B-mode ultrasound examination using linear higher frequency transducer. FINDINGS: Anterior knee demonstrates small fluid collection consistent with effusion measuring approximately 5.2 x 0.6 x 5.5 cm. IMPRESSION: Anterior effusion. <Electronically signed by Xavier Maradiaga > 06/10/21 [id number]
[2021-06-10] MEDS: VANCOMYCIN HCL 1,000 MG, VIAL MATE ADAPTER 1 EACH in NS 250 ML IV SCH (15:30)
[2021-06-10] MEDS: PANTOPRAZOLE 40MG TAB (PROTONIX) PO SCH (20:13)
[2021-06-10] MEDS: LATANOPROST 0.005% OPHTH SOLN 2.5 ML OU SCH (20:14)
[2021-06-10 22:00] VITALS: BP 137/60
[2021-06-11] MEDS: NS 1,000 ML IV SCH (01:39)
[2021-06-11] MEDS: PIPERACILLIN/TAZOBACTAM SOD 3.375 GM in D5W MINI-BAG PLUS 50 ML IV SCH ×4 (01:39→21:11)
[2021-06-11] MEDS: VANCOMYCIN HCL 1,000 MG, VIAL MATE ADAPTER 1 EACH in NS 250 ML IV SCH (02:35)
[2021-06-11 06:00] VITALS: BP 156/66
[2021-06-11] MEDS: SLF 3 ML SYR IV SCH ×3 (06:00→21:12)
[2021-06-11 06:20] LABS: HEMATOCRIT 32.9 % (42.0-52.0); HEMOGLOBIN 10.6 g/dl (13.5-17.5); MEAN CORPUSCULAR HEMOGLOBIN 30.1 pg (27.0-33.0); MEAN CORPUSCULAR HGB CONC 32.2 g/dl (32.0-36.5); MEAN CORPUSCULAR VOLUME 93.5 fl (80.0-96.0); PLATELET COUNT, AUTOMATED 189 10^3/uL (150-450); RED BLOOD COUNT 3.52 10^6/uL (4.30-6.10); WHITE BLOOD COUNT 8.1 10^3/uL (4.0-10.0)
[2021-06-11 06:45] LABS: BLOOD UREA NITROGEN 10 MG/DL (7-18); CALCIUM LEVEL 8.8 MG/DL (8.8-10.2); CARBON DIOXIDE LEVEL 31 MEQ/L (21-32); CHLORIDE LEVEL 108 MEQ/L (98-107); CPK CREATINE PHOSPHOKINASE 283 U/L (39-308); CREATININE FOR GFR 1.11 MG/DL (0.70-1.30); GLOMERULAR FILTRATION RATE > 60.0 (>35); GLUCOSE, FASTING 111 MG/DL (70-100); POTASSIUM SERUM 3.4 MEQ/L (3.5-5.1); SODIUM LEVEL 141 MEQ/L (136-145)
[2021-06-11] MEDS: ADVAIR HFA 115/21MCG INHALER INH SCH ×2 (08:00→19:59)
[2021-06-11] MEDS: ASPIRIN 81 MG CHEW TABLET PEG SCH (08:14)
[2021-06-11] MEDS: DOCUSATE SODIUM 100MG CAPSULE PO SCH ×2 (08:14→21:11)
[2021-06-11] MEDS: POTASSIUM CHLORIDE 10 MEQ SR TABLET PO SCH ×2 (08:14→21:12)
[2021-06-11] MEDS: FUROSEMIDE 40MG/4ML VIAL (J1940) IV SCH ×2 (08:14→17:20)
[2021-06-11] MEDS: OMEGA-3 1000MG CAPSULE PO SCH (08:14)
[2021-06-11] MEDS: oxyCODONE 5MG TAB PO PRN ×3 (08:15→21:11)
[2021-06-11] MEDS: PRAVASTATIN 20 MG TAB PO SCH (08:15)
[2021-06-11] MEDS: CLOPIDOGREL 75 MG TAB PO SCH (08:15)
[2021-06-11] MEDS: HEPARIN SOD (PORCINE) 5000UNITS/ML 1ML VIAL/SYRINGE SQ SCH ×2 (08:16→21:12)
[2021-06-11] MEDS: KETOROLAC 30 MG/ML 1ML VIAL IV PRN (10:00)
--- NOTE | 2021-06-11 11:42 | IPNPDOC ---
Subjective Date Seen The patient was seen on 06/11/21. Subjective Chief Complaint/HPI Mr. Montalvo is an 81-year-old male with deafness, hypertension, NICOLAS, DM type II, and PAD status post bilateral lower extremity angioplasties who presents with mechanical fall and found to have CHERI and rhabdomyolysis. This morning, he denied any chest pain or dyspnea. He still has right knee pain that radiates down to the foot. His rhabdomyolysis has resolved. Will discontinue IVF. Will continue with IV Lasix. Part of his knee/ankle pain may be partially due to edema. Objective Physical Examination General Exam: Positive: Alert, Cooperative Eye Exam: Positive: EOMI; Negative: Sclera icteric ENT Exam: Positive: Atraumatic, Tongue Midline Neck Exam: Positive: Supple Chest Exam: Positive: Rales Heart Exam: Positive: Rate Normal, Regular Rhythm Abdomen Exam: Positive: Normal bowel sounds, Soft; Negative: Tenderness Extremity Exam: Positive: Swelling Neuro Exam: Positive: Other (deaf) Psych Exam: Positive: Mental status NL, Mood NL Assessment /Plan Assessment Mr. Montalvo is an 81-year-old male with deafness, hypertension, NICOLAS, DM type II, and PAD status post bilateral lower extremity angioplasties who presents with mechanical fall and found to have CHERI and rhabdomyolysis. He may have had a foot infection which made him hypotensive. Then he lost his balance and fell on the ground causing his rhabdomyolysis and CHERI. Treating his sepsis and foot infection with Zosyn and vancomycin. Rhabdomyolysis and CHERI being treating with IVF. Rhabdomyolysis and CHERI resolved. IVF discontinue. Continuing IV Lasix since patient has HFpEF. Plan/VTE VTE Prophylaxis Ordered?: Yes Plan 1. Sepsis secondary to foot infection -Received more than 30mg/kg of fluid -Possibly diabetic foot infection. Will order an MRI of the feet to look for osteo -Vancomycin and Zosyn day 5 2. Right knee cellulitis -Will continue with Vancomycin and Zosyn -Continue to monitor and re-evaluate -Imaging of knee does not demonstrate fluid in the joint. There is fluid in the anterior bursa. 3. CHERI secondary to rhabdomyolysis -Baseline creatinine at 1.2. Creatinine on admission 1.9 -Rhabdomyolysis secondary to being on ground for long period of time -Aggressive IVF. Resolved, IVF has been discontinued 4. Acute iatrogenic decompensated diastolic CHF Patient's echocardiogram on 05/31/2021 demonstrates an EF of 65% with grade 1 diastolic dysfunction We will need to continue flushing patient's kidneys due to rhabdomyolysis We will give IV Lasix at the same time to help with his lungs -Improved 5. Peripheral arterial disease Continue aspirin, Plavix, and pravastatin 6. Hypertension Currently patient is hypotensive Hold atenolol and Lasix 7. Insulin resistance -About a year ago, patient's HbA1C was 7.7. Now HbA1c is 5.9 -Continue with carb consistent diet 8. DVT prophylaxis Heparin Disposition: Pending clinical improvement of right knee and ankle VS, I&O, 24H, Fishbone Vital Signs/I&O Vital Signs Date Time Temp Pulse Resp B/P (MAP) Pulse Ox O2 Delivery O2 Flow Rate FiO2 06/11/21 08:45 18 06/11/21 06:00 97.8 69 156/66 (96) 96 06/10/21 22:00 Room Air 06/08/21 12:29 2.0 I&O- Last 24 Hours up to 6 AM 06/11/21 06:00 Intake Total 710 ml Output Total 4225 ml Balance -3515 ml Laboratory Data 24H LABS Laboratory Tests 2 06/10/21 11:42: Bedside Glucose (Misc Panel) 144H 06/10/21 13:38: Vancomycin Level Trough 15.7 06/10/21 16:20: Bedside Glucose (Misc Panel) 119H 06/10/21 20:33: Bedside Glucose (Misc Panel) 108 06/11/21 06:03: Nucleated Red Blood Cells % (auto) 0.0, Anion Gap 2L, Glomerular Filtration Rate > 60.0, Calcium Level 8.8, Total Creatine Kinase 283 CBC/BMP Laboratory Tests 06/11/21 06:03 Microbiology Microbiology 06/07/21 Blood Culture - Preliminary, Resulted No Growth after 72 hours. All specime... 06/07/21 Blood Culture - Preliminary, Resulted No Growth after 72 hours. All specime... JEFFERY ESTRADA DO Jun 11, 2021 11:42
[2021-06-11 14:00] VITALS: BP 156/64
[2021-06-11] MEDS: VANCOMYCIN HCL 750 MG, VIAL MATE ADAPTER 1 EACH in NS 250 ML IV SCH (15:50)
[2021-06-11] MEDS: PANTOPRAZOLE 40MG TAB (PROTONIX) PO SCH (21:11)
[2021-06-11] MEDS: LATANOPROST 0.005% OPHTH SOLN 2.5 ML OU SCH (21:12)
[2021-06-11 22:00] VITALS: BP 163/64
[2021-06-12] MEDS: PIPERACILLIN/TAZOBACTAM SOD 3.375 GM in D5W MINI-BAG PLUS 50 ML IV SCH ×4 (02:11→20:38)
[2021-06-12] MEDS: VANCOMYCIN HCL 750 MG, VIAL MATE ADAPTER 1 EACH in NS 250 ML IV SCH ×2 (03:15→16:00)
[2021-06-12 06:00] VITALS: BP 152/62
[2021-06-12 06:11] LABS: HEMATOCRIT 32.1 % (42.0-52.0); HEMOGLOBIN 10.5 g/dl (13.5-17.5); MEAN CORPUSCULAR HEMOGLOBIN 30.3 pg (27.0-33.0); MEAN CORPUSCULAR HGB CONC 32.7 g/dl (32.0-36.5); MEAN CORPUSCULAR VOLUME 92.5 fl (80.0-96.0); PLATELET COUNT, AUTOMATED 216 10^3/uL (150-450); RED BLOOD COUNT 3.47 10^6/uL (4.30-6.10); WHITE BLOOD COUNT 9.1 10^3/uL (4.0-10.0)
[2021-06-12] MEDS: SLF 3 ML SYR IV SCH ×3 (06:35→20:39)
[2021-06-12 06:43] LABS: BLOOD UREA NITROGEN 15 MG/DL (7-18); CALCIUM LEVEL 9.3 MG/DL (8.8-10.2); CARBON DIOXIDE LEVEL 29 MEQ/L (21-32); CHLORIDE LEVEL 106 MEQ/L (98-107); CPK CREATINE PHOSPHOKINASE 155 U/L (39-308); CREATININE FOR GFR 1.11 MG/DL (0.70-1.30); GLOMERULAR FILTRATION RATE > 60.0 (>35); GLUCOSE, FASTING 117 MG/DL (70-100); POTASSIUM SERUM 3.4 MEQ/L (3.5-5.1); SODIUM LEVEL 140 MEQ/L (136-145)
[2021-06-12] MEDS: ADVAIR HFA 115/21MCG INHALER INH SCH ×2 (07:20→20:08)
[2021-06-12] MEDS: KETOROLAC 30 MG/ML 1ML VIAL IV PRN ×2 (08:18→18:48)
[2021-06-12] MEDS: oxyCODONE 5MG TAB PO PRN ×2 (08:20→18:49)
[2021-06-12] MEDS: ASPIRIN 81 MG CHEW TABLET PEG SCH (08:20)
[2021-06-12] MEDS: OMEGA-3 1000MG CAPSULE PO SCH (08:20)
[2021-06-12] MEDS: CLOPIDOGREL 75 MG TAB PO SCH (08:20)
[2021-06-12] MEDS: POTASSIUM CHLORIDE 10 MEQ SR TABLET PO SCH ×2 (08:21→20:38)
[2021-06-12] MEDS: FUROSEMIDE 40MG/4ML VIAL (J1940) IV SCH ×2 (08:21→16:02)
[2021-06-12] MEDS: PRAVASTATIN 20 MG TAB PO SCH (08:21)
[2021-06-12] MEDS: HEPARIN SOD (PORCINE) 5000UNITS/ML 1ML VIAL/SYRINGE SQ SCH ×2 (08:21→20:38)
[2021-06-12] MEDS ORDERED: POTASSIUM CHLORIDE 10 MEQ SR TABLET PO ONE (08:55)
[2021-06-12] MEDS: DOCUSATE SODIUM 100MG CAPSULE PO SCH ×2 (09:00→20:38)
--- NOTE | 2021-06-12 12:29 | IPNPDOC ---
Subjective Date Seen The patient was seen on 06/12/21. Subjective Chief Complaint/HPI Patient was seen and examined at bedside this morning. 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 He was admitted after falling and unable to get up from the floor due to his already poor ambulatory status. He reports he normally requires a lift when moving from sitting/supine position. He was able to crawl to the table where his phone was to call for help. Presently, his primary complaint is right ankle pain, which is exacerbated with movement. Other systems 10 point review of system was negative except for what is noted in the HPI Objective Physical Examination Chest Exam: Positive: Rales Other physical findings General: Lying in bed, no acute distress Head/Neck/Throat: Trachea midline, mucous membranes moist Eyes: Sclera anicteric, no erythema or discharge appreciated bilaterally. Thorax: Normal respiratory effort on room air, lungs clear to auscultation bilaterally, no wheezes/rales/rhonchi Cardiovascular: Normal rate, regular rhythm, normal S1, S2; no S3, S4, rubs/gallops/murmurs Abdomen: Bowel sounds present, soft/nontender/nondistended Genitourinary: No CVA tenderness, no Concepcion in place Musculoskeletal: Limited range of motion in his lower extremities. Right ankle was tender to touch and patient did not allow full examination as he began to wince in pain Skin: Macerations between the toes bilaterally, venous stasis, and hyp erpigmentation of lower extremities. Neurologic: AAOx3, speech fluent and goal-directed, no focal deficits, grossly intact Assessment /Plan Assessment #Sepsis -Lower extremity cellulitis. He has maceration between the toes, lower extremity stasis which predisposes him to cellulitis. However, there is concerns for right foot osteomyelitis, for which an MRI is pending. -Continue broad-spectrum antibiotics until MRI has been obtained. #Electrolyte abnormality -Replete potassium #Ambulatory dysfunction -Reports difficulty with ambulation. Although, he reports living home alone he has appropriate accommodations such as handlebars, and a lift. -PT/OT. ARU screen. #CHERI -Resolved and back to baseline creatinine. Most likely secondary to his rhabdomyolysis. #Rhabdomyolysis -Resolved. Creatinine kinase has improved with IV fluids. #HFpEF -Echo from 05/31/21 noted LVEF of 65% and grade 1 diastolic HF. Hold fluids at this time. -Furosemide 40 IV BID, will change to daily. #PAD -Continue with aspirin, plavix, and statin therapy. #HTN -Resume atenolol. #DVT ppx -Heparin subq Plan/VTE VTE Prophylaxis Ordered?: Yes VS, I&O, 24H, Fishbone Vital Signs/I&O Vital Signs Date Time Temp Pulse Resp B/P (MAP) Pulse Ox O2 Delivery O2 Flow Rate FiO2 06/12/21 08:20 18 06/12/21 06:00 99.2 71 152/62 (92) 92 Room Air 06/08/21 12:29 2.0 I&O- Last 24 Hours up to 6 AM 06/12/21 06:00 Intake Total 2470 ml Output Total 3350 ml Balance -880 ml Laboratory Data 24H LABS Laboratory Tests 2 06/11/21 12:03: Bedside Glucose (Misc Panel) 116H 06/11/21 14:10: Vancomycin Level Trough 18.5 06/11/21 17:22: Bedside Glucose (Misc Panel) 115H 06/11/21 21:24: Bedside Glucose (Misc Panel) 129H 06/12/21 05:42: Nucleated Red Blood Cells % (auto) 0.0, Anion Gap 5L, Glomerular Filtration Rate > 60.0, Calcium Level 9.3, Total Creatine Kinase 155 CBC/BMP Laboratory Tests 06/12/21 05:42 Microbiology Microbiology 06/07/21 Blood Culture - Final, Complete NO GROWTH AFTER 5 DAYS 06/07/21 Blood Culture - Final, Complete NO GROWTH AFTER 5 DAYS CODY RESTREPO M.D. Jun 12, 2021 08:57
[2021-06-12 14:00] VITALS: BP 152/63
[2021-06-12] MEDS: LATANOPROST 0.005% OPHTH SOLN 2.5 ML OU SCH (20:38)
[2021-06-12] MEDS: PANTOPRAZOLE 40MG TAB (PROTONIX) PO SCH (20:38)
[2021-06-12 21:17] VITALS: BP 142/62
[2021-06-13] MEDS: PIPERACILLIN/TAZOBACTAM SOD 3.375 GM in D5W MINI-BAG PLUS 50 ML IV SCH ×4 (02:26→20:32)
[2021-06-13 02:28] VITALS: BP 137/60
[2021-06-13] MEDS: VANCOMYCIN HCL 750 MG, VIAL MATE ADAPTER 1 EACH in NS 250 ML IV SCH ×2 (03:30→16:41)
[2021-06-13] MEDS: SLF 3 ML SYR IV SCH ×3 (05:12→20:33)
[2021-06-13] MEDS: KETOROLAC 30 MG/ML 1ML VIAL IV PRN ×2 (05:31→13:22)
[2021-06-13] MEDS: oxyCODONE 5MG TAB PO PRN ×3 (05:31→22:20)
[2021-06-13 06:37] LABS: HEMATOCRIT 32.5 % (42.0-52.0); HEMOGLOBIN 10.3 g/dl (13.5-17.5); MEAN CORPUSCULAR HGB CONC 31.7 g/dl (32.0-36.5); MEAN CORPUSCULAR VOLUME 94.8 fl (80.0-96.0); PLATELET COUNT, AUTOMATED 221 10^3/uL (150-450); RED BLOOD COUNT 3.43 10^6/uL (4.30-6.10); WHITE BLOOD COUNT 6.2 10^3/uL (4.0-10.0)
[2021-06-13 06:49] LABS: BLOOD UREA NITROGEN 19 MG/DL (7-18); CALCIUM LEVEL 8.9 MG/DL (8.8-10.2); CARBON DIOXIDE LEVEL 28 MEQ/L (21-32); CHLORIDE LEVEL 108 MEQ/L (98-107); CPK CREATINE PHOSPHOKINASE 108 U/L (39-308); CREATININE FOR GFR 1.08 MG/DL (0.70-1.30); GLOMERULAR FILTRATION RATE > 60.0 (>35); GLUCOSE, FASTING 105 MG/DL (70-100); MAGNESIUM LEVEL 2.4 MG/DL (1.8-2.4); PHOSPHORUS LEVEL 3.4 MG/DL (2.5-4.9); POTASSIUM SERUM 4.6 MEQ/L (3.5-5.1); SODIUM LEVEL 141 MEQ/L (136-145)
[2021-06-13] MEDS: ADVAIR HFA 115/21MCG INHALER INH SCH (07:20)
[2021-06-13] MEDS: OMEGA-3 1000MG CAPSULE PO SCH (08:48)
[2021-06-13] MEDS: ASPIRIN 81 MG CHEW TABLET PEG SCH (08:48)
[2021-06-13] MEDS: DOCUSATE SODIUM 100MG CAPSULE PO SCH ×2 (08:48→20:33)
[2021-06-13] MEDS: CLOPIDOGREL 75 MG TAB PO SCH (08:49)
[2021-06-13] MEDS: FUROSEMIDE 40MG/4ML VIAL (J1940) IV SCH ×2 (08:49→16:41)
[2021-06-13] MEDS: POTASSIUM CHLORIDE 10 MEQ SR TABLET PO SCH (08:49)
[2021-06-13] MEDS: PRAVASTATIN 20 MG TAB PO SCH (08:49)
[2021-06-13] MEDS: HEPARIN SOD (PORCINE) 5000UNITS/ML 1ML VIAL/SYRINGE SQ SCH (08:50)
[2021-06-13 14:00] VITALS: BP 137/60
--- NOTE | 2021-06-13 17:20 | IPNPDOC ---
Subjective Date Seen The patient was seen on 06/13/21. Subjective Chief Complaint/HPI Patient was seen and examined at bedside this morning. He was complaining of left knee pain today, but when asked if this was new or chronic he reported that this is old knee pain. Otherwise he had no new complaints. Other systems 10 point review of system was negative except for what is noted in the HPI Objective Physical Examination Chest Exam: Positive: Rales Other physical findings General: Lying in bed, no acute distress Head/Neck/Throat: Trachea midline, mucous membranes moist Eyes: Sclera anicteric, no erythema or discharge appreciated bilaterally. Thorax: Normal respiratory effort on room air, lungs clear to auscultation bilaterally, no wheezes/rales/rhonchi Cardiovascular: Normal rate, regular rhythm, normal S1, S2; no S3, S4, rubs/gallops/murmurs Abdomen: Bowel sounds present, soft/nontender/nondistended Genitourinary: No CVA tenderness, no Concepcion in place Musculoskeletal: Limited range of motion in his lower extremities bilaterally. Again, right ankle was tender to touch and patient did not allow full exam ination as he began to wince in pain Skin: Macerations between the toes bilaterally, venous stasis, and hyperpigmentation of lower extremities. Neurologic: AAOx3, speech fluent and goal-directed, no focal deficits, grossly intact Assessment /Plan Assessment #Sepsis -Lower extremity cellulitis. He has maceration between the toes and lower extremity stasis which predisposes him to cellulitis. However, there is concerns for right foot osteomyelitis, for which an MRI is still pending today -Continue broad-spectrum antibiotics until MRI has been obtained. #Electrolyte abnormality -Replete potassium #Ambulatory dysfunction -Reports difficulty with ambulation. Although, he reports living home alone he has appropriate accommodations such as handlebars, and a lift. -PT/OT. ARU screen place #CHERI -Resolved and back to baseline creatinine. Most likely secondary to his rhabdomyolysis. #Rhabdomyolysis -Resolved. Creatinine kinase has improved with IV fluids. #HFpEF -Echo from 05/31/21 noted LVEF of 65% and grade 1 diastolic HF. Hold fluids at this time. -Discontinue furosemide 40 IV BID; and continue with ambulatory regimen. #PAD -Continue with aspirin, plavix, and statin therapy. #HTN -Resume atenolol. #DVT ppx -Heparin subq Dispo: Pending MRI to r/o osteo. ARU eval pending. Plan/VTE VTE Prophylaxis Ordered?: Yes VS, I&O, 24H, Fishbone Vital Signs/I&O Vital Signs Date Time Temp Pulse Resp B/P (MAP) Pulse Ox O2 Delivery O2 Flow Rate FiO2 06/13/21 05:31 18 NIPPV (BIPAP/CPAP) 06/13/21 02:28 97.3 60 137/60 (85) 95 06/08/21 12:29 2.0 I&O- Last 24 Hours up to 6 AM 06/13/21 06:00 Intake Total 2140 ml Output Total 2800 ml Balance -660 ml Laboratory Data 24H LABS Laboratory Tests 2 06/12/21 14:59: Vancomycin Level Trough 16.9 06/12/21 21:04: Bedside Glucose (Misc Panel) 147H 06/13/21 06:04: CBC/BMP Microbiology Microbiology 06/07/21 Blood Culture - Final, Complete NO GROWTH AFTER 5 DAYS 06/07/21 Blood Culture - Final, Complete NO GROWTH AFTER 5 DAYS CODY RESTREPO M.D. Jun 13, 2021 06:16
[2021-06-13] MEDS: SYMBICORT 160/4.5MCG INHALER 6GM INH SCH (19:56)
[2021-06-13] MEDS: LATANOPROST 0.005% OPHTH SOLN 2.5 ML OU SCH (20:32)
[2021-06-13 22:32] VITALS: BP 156/62
[2021-06-14] MEDS: PIPERACILLIN/TAZOBACTAM SOD 3.375 GM in D5W MINI-BAG PLUS 50 ML IV SCH ×4 (01:57→20:23)
[2021-06-14] MEDS: VANCOMYCIN HCL 750 MG, VIAL MATE ADAPTER 1 EACH in NS 250 ML IV SCH ×2 (03:19→16:47)
[2021-06-14] MEDS: SLF 3 ML SYR IV SCH ×3 (06:15→20:24)
[2021-06-14] MEDS: oxyCODONE 5MG TAB PO PRN ×3 (06:20→18:00)
[2021-06-14 06:39] LABS: HEMATOCRIT 33.4 % (42.0-52.0); HEMOGLOBIN 10.8 g/dl (13.5-17.5); MEAN CORPUSCULAR HEMOGLOBIN 30.3 pg (27.0-33.0); MEAN CORPUSCULAR HGB CONC 32.3 g/dl (32.0-36.5); MEAN CORPUSCULAR VOLUME 93.8 fl (80.0-96.0); PLATELET COUNT, AUTOMATED 281 10^3/uL (150-450); RED BLOOD COUNT 3.56 10^6/uL (4.30-6.10); WHITE BLOOD COUNT 8.4 10^3/uL (4.0-10.0)
[2021-06-14 07:08] LABS: BLOOD UREA NITROGEN 22 MG/DL (7-18); C REACTIVE PROTEIN QUANTITATIV 9.42 MG/DL (0.00-0.30); CALCIUM LEVEL 8.7 MG/DL (8.8-10.2); CARBON DIOXIDE LEVEL 32 MEQ/L (21-32); CHLORIDE LEVEL 105 MEQ/L (98-107); CREATININE FOR GFR 1.22 MG/DL (0.70-1.30); GLOMERULAR FILTRATION RATE > 60.0 (>35); GLUCOSE, FASTING 111 MG/DL (70-100); MAGNESIUM LEVEL 2.5 MG/DL (1.8-2.4); PHOSPHORUS LEVEL 3.4 MG/DL (2.5-4.9); SODIUM LEVEL 140 MEQ/L (136-145)
[2021-06-14] MEDS: KETOROLAC 30 MG/ML 1ML VIAL IV PRN (07:49)
[2021-06-14] MEDS: OMEGA-3 1000MG CAPSULE PO SCH (07:51)
[2021-06-14] MEDS: ENOXAPARIN 40MG/0.4ML SYRINGE (J1650 PER 10MG) SC SCH (07:51)
[2021-06-14] MEDS: ASPIRIN 81 MG CHEW TABLET PEG SCH (07:52)
[2021-06-14] MEDS: CLOPIDOGREL 75 MG TAB PO SCH (07:52)
[2021-06-14] MEDS: PRAVASTATIN 20 MG TAB PO SCH (07:52)
[2021-06-14] MEDS: atenoloL 25 MG TAB PO SCH (07:53)
[2021-06-14] MEDS: DOCUSATE SODIUM 100MG CAPSULE PO SCH ×2 (07:54→20:23)
[2021-06-14] MEDS: SYMBICORT 160/4.5MCG INHALER 6GM INH SCH ×2 (07:59→20:35)
[2021-06-14 08:13] LABS: ERYTHROCYTE SEDIMENTATION RATE > 140 mm/hr (0-20)
[2021-06-14] MEDS ORDERED: FUROSEMIDE 80 MG TAB PO SCH (09:00)
--- NOTE | 2021-06-14 12:25 | IPNPDOC ---
Subjective Date Seen The patient was seen on 06/14/21. Subjective Chief Complaint/HPI Patient was seen and examined at bedside this morning. He continues to complain of right ankle pain as well as the pain. Otherwise he had no new complaints. Other systems 10 point review of system was negative except for what is noted in the HPI Objective Physical Examination Chest Exam: Positive: Rales Other physical findings General: Lying in bed, no acute distress Head/Neck/Throat: Trachea midline, mucous membranes moist Eyes: Sclera anicteric, no erythema or discharge appreciated bilaterally. Thorax: Normal respiratory effort on room air, lungs clear to auscultation bilaterally, no wheezes/rales/rhonchi Cardiovascular: Normal rate, regular rhythm, normal S1, S2; no S3, S4, rubs/gallops/murmurs Abdomen: Bowel sounds present, soft/nontender/nondistended Genitourinary: No CVA tenderness, no Concepcion in place Musculoskeletal: Limited range of motion in his lower extremities. Right ankle was tender to touch and winces in pain with passive range of motion testing. Skin: Venous stasis, and hyperpigmentation of lower extremities. No erythema appreciated now. Neurologic: AAOx3, speech fluent and goal-directed, no focal deficits, grossly intact Assessment /Plan Assessment #Sepsis -Lower extremity cellulitis. However, there is concerns for right foot osteomyelitis, for which an MRI is pending. -Continue broad-spectrum antibiotics until MRI has been obtained. If negative, will d/c ab. #Electrolyte abnormality -Hyperkalemia - resolved. #Ambulatory dysfunction -Reports difficulty with ambulation. Although, he reports living home alone he has appropriate accommodations such as handlebars, and a lift. -He has arthritis. Ortho was asked to evaluate the patient and share the same opinion. Continue w/ analgesic support. He will need to participate in physical therapy. -PT/OT. ARU screen. #CHERI -Resolved and back to baseline creatinine. Most likely secondary to his rhabdomyolysis. -His bun/cr is rising, going to hold diuresis and ketorolac. #Rhabdomyolysis -Resolved. #HFpEF -Echo from 05/31/21 noted LVEF of 65% and grade 1 diastolic HF. Hold fluids at this time. -Furosemide 40 IV BID, will change to daily. #PAD -Continue with aspirin, plavix, and statin therapy. #HTN -Resume atenolol. #DVT ppx -Heparin subq Dispo: Awaiting ARU eval, and MRI of the right ankle. Patient's daughter requested a call for updates; call x 2 placed but no answer. Plan/VTE VTE Prophylaxis Ordered?: Yes VS, I&O, 24H, Fishbone Vital Signs/I&O Vital Signs Date Time Temp Pulse Resp B/P (MAP) Pulse Ox O2 Delivery O2 Flow Rate FiO2 06/14/21 07:53 69 156/62 06/14/21 06:50 18 06/14/21 06:20 Room Air 06/13/21 22:32 98.9 93 06/08/21 12:29 2.0 I&O- Last 24 Hours up to 6 AM 06/14/21 06:00 Intake Total 2430 ml Output Total 1950 ml Balance 480 ml Laboratory Data 24H LABS Laboratory Tests 2 06/14/21 05:54: Nucleated Red Blood Cells % (auto) 0.0, Erythrocyte Sedimentation Rate > 140H, Anion Gap 3L, Glomerular Filtration Rate > 60.0, Calcium Level 8.7L, Phosphorus Level 3.4, Magnesium Level 2.5H, C-Reactive Protein, Quantitative 9.42H CBC/BMP Laboratory Tests 06/14/21 05:54 Microbiology Microbiology 06/07/21 Blood Culture - Final, Complete NO GROWTH AFTER 5 DAYS 06/07/21 Blood Culture - Final, Complete NO GROWTH AFTER 5 DAYS CODY RESTREPO M.D. Jun 14, 2021 12:18
[2021-06-14 14:00] VITALS: BP 122/46
[2021-06-14] MEDS: ACETAMINOPHEN 500 MG TAB PO PRN ×2 (15:21→20:22)
[2021-06-14] MEDS ORDERED: LORazepam 0.5 MG TAB PO ONE (17:05)
[2021-06-14] MEDS ORDERED: MORPHINE 4 MG/ML 1ML VIAL/SYRINGE (J2270) IV ONE (20:00)
[2021-06-14] MEDS: LATANOPROST 0.005% OPHTH SOLN 2.5 ML OU SCH (20:23)
[2021-06-15] MEDS: PIPERACILLIN/TAZOBACTAM SOD 3.375 GM in D5W MINI-BAG PLUS 50 ML IV SCH ×4 (01:33→20:25)
[2021-06-15] MEDS: VANCOMYCIN HCL 750 MG, VIAL MATE ADAPTER 1 EACH in NS 250 ML IV SCH ×2 (03:21→15:16)
[2021-06-15] MEDS: SLF 3 ML SYR IV SCH ×3 (03:21→20:26)
[2021-06-15 06:42] VITALS: BP 146/64
[2021-06-15] MEDS: SYMBICORT 160/4.5MCG INHALER 6GM INH SCH ×2 (07:11→20:00)
[2021-06-15] MEDS: ENOXAPARIN 40MG/0.4ML SYRINGE (J1650 PER 10MG) SC SCH (07:42)
[2021-06-15] MEDS: ASPIRIN 81 MG CHEW TABLET PEG SCH (07:42)
[2021-06-15] MEDS: PRAVASTATIN 20 MG TAB PO SCH (07:43)
[2021-06-15] MEDS: oxyCODONE 5MG TAB PO PRN ×3 (07:43→19:25)
[2021-06-15] MEDS: OMEGA-3 1000MG CAPSULE PO SCH (07:43)
[2021-06-15] MEDS: CLOPIDOGREL 75 MG TAB PO SCH (07:44)
[2021-06-15] MEDS: DOCUSATE SODIUM 100MG CAPSULE PO SCH ×2 (07:46→20:26)
[2021-06-15] MEDS: atenoloL 25 MG TAB PO SCH (07:46)
[2021-06-15 08:14] LABS: HEMATOCRIT 34.9 % (42.0-52.0); HEMOGLOBIN 11.3 g/dl (13.5-17.5); MEAN CORPUSCULAR HEMOGLOBIN 30.4 pg (27.0-33.0); MEAN CORPUSCULAR HGB CONC 32.4 g/dl (32.0-36.5); MEAN CORPUSCULAR VOLUME 93.8 fl (80.0-96.0); PLATELET COUNT, AUTOMATED 275 10^3/uL (150-450); RED BLOOD COUNT 3.72 10^6/uL (4.30-6.10); WHITE BLOOD COUNT 7.6 10^3/uL (4.0-10.0)
[2021-06-15 08:52] LABS: BLOOD UREA NITROGEN 21 MG/DL (7-18); CALCIUM LEVEL 9.2 MG/DL (8.8-10.2); CARBON DIOXIDE LEVEL 31 MEQ/L (21-32); CHLORIDE LEVEL 105 MEQ/L (98-107); CREATININE FOR GFR 1.08 MG/DL (0.70-1.30); GLOMERULAR FILTRATION RATE > 60.0 (>35); GLUCOSE, FASTING 96 MG/DL (70-100); MAGNESIUM LEVEL 2.7 MG/DL (1.8-2.4); PHOSPHORUS LEVEL 3.3 MG/DL (2.5-4.9); POTASSIUM SERUM 4.3 MEQ/L (3.5-5.1); SODIUM LEVEL 141 MEQ/L (136-145); URIC ACID 5.2 MG/DL (3.5-7.2)
[2021-06-15] MEDS ORDERED: MORPHINE 4 MG/ML 1ML VIAL/SYRINGE (J2270) IV ONE ×2 (10:40→20:00)
[2021-06-15] MEDS: ACETAMINOPHEN 500 MG TAB PO PRN ×3 (10:54→19:24)
[2021-06-15 14:00] VITALS: BP 149/66
[2021-06-15] MEDS: LATANOPROST 0.005% OPHTH SOLN 2.5 ML OU SCH (20:26)
[2021-06-15 22:00] VITALS: BP 144/65
--- NOTE | 2021-06-15 23:06 | REPVR ---
PROCEDURE INFORMATION: Exam: MR Right Lower Extremity Other Than Joint Without Contrast; Foot Exam date and time: 06/15/2021 10:53 PM Age: 81 years old Clinical indication: Foot; Right; Patient HX: Painful feet, rt>lt; Additional info: R/O osteo TECHNIQUE: Imaging protocol: MR of the Right lower extremity without contrast. Exam focused on the foot. COMPARISON: US EXTREMITY NON VASCUL LIMITED 06/10/2021 2:11 PM FINDINGS: Subcutaneous soft tissue edema is present over the ankle and the dorsum of the foot superficial to the extensor tendons, extending to the level of the proximal phalanges. Mild plantar forefoot soft tissue edema is also present. No identifiable focal fluid collection or obvious evidence of exposed bone. Overall normal osseous alignment. T1 weighted images demonstrate no cortical disruption and no replacement of T1 marrow fat to suggest osteomyelitis. No evidence of septic arthropathy. Mild polyarticular degenerative joint space narrowing and osteophyte formation is present with no evidence of an inflammatory arthropathy. IMPRESSION: Nonspecific subcutaneous edema particularly over the dorsum of the foot which may reflect cellulitis. No evidence of abscess and no evidence of osteomyelitis. Mild polyarticular degenerative osteoarthrosis without evidence of an inflammatory component Electronically signed by: Bright Hill On 06/15/2021 23:06:34 PM
[2021-06-16] MEDS: PIPERACILLIN/TAZOBACTAM SOD 3.375 GM in D5W MINI-BAG PLUS 50 ML IV SCH (01:51)
[2021-06-16] MEDS: VANCOMYCIN HCL 750 MG, VIAL MATE ADAPTER 1 EACH in NS 250 ML IV SCH ×2 (03:20→14:26)
[2021-06-16 06:00] VITALS: BP 140/68
[2021-06-16] MEDS: SLF 3 ML SYR IV SCH ×3 (06:08→21:12)
[2021-06-16 06:32] LABS: HEMATOCRIT 34.4 % (42.0-52.0); MEAN CORPUSCULAR HEMOGLOBIN 30.1 pg (27.0-33.0); PLATELET COUNT, AUTOMATED 246 10^3/uL (150-450); RED BLOOD COUNT 3.66 10^6/uL (4.30-6.10); WHITE BLOOD COUNT 7.1 10^3/uL (4.0-10.0)
[2021-06-16 06:57] LABS: ERYTHROCYTE SEDIMENTATION RATE 86 mm/hr (0-20)
[2021-06-16 07:03] LABS: BLOOD UREA NITROGEN 19 MG/DL (7-18); CALCIUM LEVEL 9.4 MG/DL (8.8-10.2); CARBON DIOXIDE LEVEL 27 MEQ/L (21-32); CHLORIDE LEVEL 111 MEQ/L (98-107); CREATININE FOR GFR 1.01 MG/DL (0.70-1.30); GLOMERULAR FILTRATION RATE > 60.0 (>35); GLUCOSE, FASTING 98 MG/DL (70-100); MAGNESIUM LEVEL 2.7 MG/DL (1.8-2.4); PHOSPHORUS LEVEL 3.7 MG/DL (2.5-4.9); POTASSIUM SERUM 4.3 MEQ/L (3.5-5.1); SODIUM LEVEL 143 MEQ/L (136-145)
[2021-06-16] MEDS: SYMBICORT 160/4.5MCG INHALER 6GM INH SCH ×2 (07:18→19:35)
[2021-06-16] MEDS: atenoloL 25 MG TAB PO SCH (09:00)
[2021-06-16] MEDS: DOCUSATE SODIUM 100MG CAPSULE PO SCH ×2 (09:00→20:01)
[2021-06-16] MEDS: ASPIRIN 81 MG CHEW TABLET PEG SCH (09:26)
[2021-06-16] MEDS: OMEGA-3 1000MG CAPSULE PO SCH (09:26)
[2021-06-16] MEDS: PRAVASTATIN 20 MG TAB PO SCH (09:27)
[2021-06-16] MEDS: CLOPIDOGREL 75 MG TAB PO SCH (09:28)
[2021-06-16] MEDS: oxyCODONE 5MG TAB PO PRN ×3 (09:29→21:11)
[2021-06-16] MEDS: ENOXAPARIN 40MG/0.4ML SYRINGE (J1650 PER 10MG) SC SCH (09:30)
[2021-06-16 14:00] VITALS: BP 103/47
[2021-06-16] MEDS: LATANOPROST 0.005% OPHTH SOLN 2.5 ML OU SCH (21:12)
[2021-06-16 22:00] VITALS: BP 145/65
[2021-06-17] MEDS: VANCOMYCIN HCL 750 MG, VIAL MATE ADAPTER 1 EACH in NS 250 ML IV SCH (02:28)
[2021-06-17] MEDS: oxyCODONE 5MG TAB PO PRN ×2 (05:36→10:02)
[2021-06-17] MEDS: SLF 3 ML SYR IV SCH ×3 (05:38→22:03)
[2021-06-17 06:00] VITALS: BP 140/80
[2021-06-17] MEDS: SYMBICORT 160/4.5MCG INHALER 6GM INH SCH ×2 (07:15→20:42)
[2021-06-17] MEDS: DOCUSATE SODIUM 100MG CAPSULE PO SCH ×2 (09:00→21:00)
[2021-06-17] MEDS: ASPIRIN 81 MG CHEW TABLET PEG SCH (10:01)
[2021-06-17] MEDS: CLOPIDOGREL 75 MG TAB PO SCH (10:01)
[2021-06-17] MEDS: ENOXAPARIN 40MG/0.4ML SYRINGE (J1650 PER 10MG) SC SCH (10:01)
[2021-06-17] MEDS: OMEGA-3 1000MG CAPSULE PO SCH (10:01)
[2021-06-17] MEDS: PRAVASTATIN 20 MG TAB PO SCH (10:01)
[2021-06-17] MEDS: atenoloL 25 MG TAB PO SCH (10:02)
--- NOTE | 2021-06-17 12:56 | IPNPDOC ---
Subjective Date Seen The patient was seen on 06/17/21. Subjective Chief Complaint/HPI Patient seen and examined at bedside this morning. outreach specialist used for interpretation. He reports improvement in his right ankle pain; reports icing it has helped. He had no new complaints. Other systems 10 point review of system was negative except for what is noted in the HPI Objective Physical Examination Chest Exam: Positive: Rales Other physical findings General: Lying in bed, no acute distress Head/Neck/Throat: Trachea midline, mucous membranes moist Eyes: Sclera anicteric, no erythema or discharge appreciated bilaterally. Thorax: Normal respiratory effort on room air, lungs clear to auscultation bilaterally, no wheezes/rales/rhonchi Cardiovascular: Normal rate, regular rhythm, normal S1, S2; no S3, S4, rubs/gallops/murmurs Abdomen: Bowel sounds present, soft/nontender/nondistended Genitourinary: No CVA tenderness, no Concepcion in place Musculoskeletal: Limited range of motion in his lower extremities. Right ankle was tender to touch and winces in pain with passive range of motion testing. Skin: Venous stasis, and hyperpigmentation of lower extremities. No erythema appreciated now. Neurologic: AAOx3, speech fluent and goal-directed, no focal deficits, grossly intact Assessment /Plan Assessment #Sepsis -Lower extremity cellulitis. He has been treated with Zosyn for 9 days and vancomycin for 10 days now. MRI of the right ankle was negative for osteomyelitis. There is much improvement clinically in his lower extremities. He will require local care for his chronic venous stasis. We will apply compression stockingscomp #Electrolyte abnormality -Hyperkalemia - resolved. #Ambulatory dysfunction -Reports difficulty with ambulation. Although, he reports living home alone he has appropriate accommodations such as handlebars, and a lift. -He has arthritis. Ortho was asked to evaluate the patient and share the same opinion. -We will begin to wean pain medications; BenGay cream to the ankles -PT/OT he was explained that he needs to participate in physical therapy as he h as declined it in the past. -ARU screen #CHERI -Resolved and back to baseline creatinine. Most likely secondary to his rhabdomyolysis. #Rhabdomyolysis -Resolved. #HFpEF -Echo from 05/31/21 noted LVEF of 65% and grade 1 diastolic HF -Furosemide as needed #PAD -Continue with aspirin, plavix, and statin therapy. #HTN -Resume atenolol with holding parameters. #DVT ppx -Heparin subq Dispo: Awaiting ARU eval Plan/VTE VTE Prophylaxis Ordered?: Yes VS, I&O, 24H, Fishbone Vital Signs/I&O Vital Signs Date Time Temp Pulse Resp B/P (MAP) Pulse Ox O2 Delivery O2 Flow Rate FiO2 06/17/21 10:32 18 06/17/21 10:02 70 140/80 06/17/21 06:00 99.2 92 Room Air I&O- Last 24 Hours up to 6 AM 06/17/21 05:59 Intake Total 2085 ml Output Total 1600 ml Balance 485 ml Laboratory Data Microbiology Microbiology 06/07/21 Blood Culture - Final, Complete NO GROWTH AFTER 5 DAYS 06/07/21 Blood Culture - Final, Complete NO GROWTH AFTER 5 DAYS CODY RESTREPO M.D. Jun 17, 2021 12:50
[2021-06-17 14:00] VITALS: BP 120/46
[2021-06-17] MEDS: ANALGESIC BALM CRM 3OZ TOP SCH ×2 (14:37→22:03)
[2021-06-17] MEDS: FUROSEMIDE 40 MG TAB PO SCH (14:37)
[2021-06-17] MEDS: LATANOPROST 0.005% OPHTH SOLN 2.5 ML OU SCH (22:02)
[2021-06-18] MEDS: oxyCODONE 5MG TAB PO PRN ×3 (05:04→22:24)
[2021-06-18] MEDS: SLF 3 ML SYR IV SCH ×3 (06:58→20:46)
[2021-06-18] MEDS: SYMBICORT 160/4.5MCG INHALER 6GM INH SCH ×2 (07:04→19:28)
[2021-06-18] MEDS: atenoloL 25 MG TAB PO SCH (09:00)
[2021-06-18] MEDS: DOCUSATE SODIUM 100MG CAPSULE PO SCH ×2 (09:00→20:45)
[2021-06-18] MEDS: ASPIRIN 81 MG CHEW TABLET PEG SCH (09:43)
[2021-06-18] MEDS: PRAVASTATIN 20 MG TAB PO SCH (09:43)
[2021-06-18] MEDS: CLOPIDOGREL 75 MG TAB PO SCH (09:43)
[2021-06-18] MEDS: OMEGA-3 1000MG CAPSULE PO SCH (09:44)
[2021-06-18] MEDS: FUROSEMIDE 40 MG TAB PO SCH (09:44)
[2021-06-18] MEDS: ENOXAPARIN 40MG/0.4ML SYRINGE (J1650 PER 10MG) SC SCH (09:45)
[2021-06-18] MEDS: ANALGESIC BALM CRM 3OZ TOP SCH ×2 (09:45→20:45)
[2021-06-18 14:00] VITALS: BP 134/61
[2021-06-18] MEDS: LATANOPROST 0.005% OPHTH SOLN 2.5 ML OU SCH (20:45)
[2021-06-19 06:36] LABS: HEMATOCRIT 35.2 % (42.0-52.0); HEMOGLOBIN 11.2 g/dl (13.5-17.5); MEAN CORPUSCULAR HEMOGLOBIN 30.1 pg (27.0-33.0); MEAN CORPUSCULAR HGB CONC 31.8 g/dl (32.0-36.5); MEAN CORPUSCULAR VOLUME 94.6 fl (80.0-96.0); PLATELET COUNT, AUTOMATED 361 10^3/uL (150-450); RED BLOOD COUNT 3.72 10^6/uL (4.30-6.10); WHITE BLOOD COUNT 7.9 10^3/uL (4.0-10.0)
[2021-06-19 06:59] LABS: ERYTHROCYTE SEDIMENTATION RATE 86 mm/hr (0-20)
[2021-06-19 07:02] VITALS: BP 107/56
[2021-06-19 07:05] LABS: BLOOD UREA NITROGEN 22 MG/DL (7-18); CALCIUM LEVEL 9.3 MG/DL (8.8-10.2); CARBON DIOXIDE LEVEL 31 MEQ/L (21-32); CHLORIDE LEVEL 109 MEQ/L (98-107); CPK CREATINE PHOSPHOKINASE 60 U/L (39-308); CREATININE FOR GFR 0.86 MG/DL (0.70-1.30); GLOMERULAR FILTRATION RATE > 60.0 (>35); GLUCOSE, FASTING 107 MG/DL (70-100); MAGNESIUM LEVEL 2.5 MG/DL (1.8-2.4); MB/CK RELATIVE INDEX 3.33 (< OR =4); PHOSPHORUS LEVEL 4.1 MG/DL (2.5-4.9); SODIUM LEVEL 144 MEQ/L (136-145)
[2021-06-19] MEDS: SYMBICORT 160/4.5MCG INHALER 6GM INH SCH (07:39)
[2021-06-19 09:00] VITALS: BP 116/57
[2021-06-19] MEDS: DOCUSATE SODIUM 100MG CAPSULE PO SCH (09:00)
[2021-06-19] MEDS: atenoloL 25 MG TAB PO SCH ×2 (09:00→09:18)
[2021-06-19] MEDS: ENOXAPARIN 40MG/0.4ML SYRINGE (J1650 PER 10MG) SC SCH (09:15)
[2021-06-19] MEDS: OMEGA-3 1000MG CAPSULE PO SCH (09:15)
[2021-06-19] MEDS: ASPIRIN 81 MG CHEW TABLET PEG SCH (09:15)
[2021-06-19] MEDS: CLOPIDOGREL 75 MG TAB PO SCH (09:17)
[2021-06-19] MEDS: PRAVASTATIN 20 MG TAB PO SCH (09:17)
[2021-06-19] MEDS: oxyCODONE 5MG TAB PO PRN (09:17)
[2021-06-19] MEDS: FUROSEMIDE 40 MG TAB PO SCH (09:18)
[2021-06-19] MEDS: ANALGESIC BALM CRM 3OZ TOP SCH (09:21)
--- NOTE | 2021-06-19 09:48 | DS.PDOC ---
Discharge Summary General Date of Admission Jun 06, 2021 at 21:31 Date of Discharge 06/19/21 Discharge Summary DISCHARGE DIAGNOSES: 1. Sepsis 2. Lower extremity cellulitis 3. Electrolyte abnormality 4. Ambulatory dysfunction 5. Acute kidney injury 6. Heart failure with preserved ejection fracture 7. Peripheral arterial disease 8. Hypertension HOSPITAL COURSE: Mr. Montalvo, presented to the emergency department at [facility] for a mechanical fall. He has a past medical history of deafness, hypertension, NICOLAS, DM type II, and PAD status post bilateral lower extremity angioplasties. He reported having a poor ambulatory status, and prior to admission he had slipped and was unable to get up from the floor. It was clarified whether or not he lost consciousness, and he reported he did not. He remained on the floor for a couple of hours and then he crawled to the table where his phone was for help. He was admitted for management of acute kidney injury, rhabdomyolysis, and lower extremity cellulitis. He was started on broad-spectrum antibiotics including Zosyn as well as vancomycin. He completed a course of 9, and 10 days respectively. His rhabdomyolysis and acute kidney injury was treated with IV fluids. Due to his fall, a CT cervical spine without contrast, chest x-ray, chest CT, and CT scan of the brain was done. There was no acute findings appreciated. A CT scan of the abdomen and pelvis was done that showed trace retroperitoneal fluid versus thickening of the left-sided conal fascia with small adjacent lymph nodes that was thought to be reactive. CT scan of the spine noted mid to lower anterior thoracic and upper lumbar spine degenerative changes; otherwise no a cute findings were appreciated. Vascular ultrasound of the lower extremities was done and there was no acute DVT appreciated. Due to his ongoing pain in the right knee CT scan without contrast was done. This showed findings compatible with cellulitis. There was a small joint effusion which was not compatible with septic arthritis. There was relatively mild to moderate osteoarthritic degenerative changes. Her right ankle x-ray done showed only swelling. An anterior knee ultrasound noted small fluid collection of approximately 5.5 cm. This was managed with IV antibiotics and conservatively. Despite treatment with IV antibiotics patient continued to complain of right ankle pain. Therefore an MRI of the ankle was done which showed nonspecific subcutaneous edema over the dorsum of the feet suggestive of cellulitis and mild osteoarthrosis without evidence of inflammatory component. He was evaluated by the orthopedics team and no acute intervention was required at this time. His pain is likely due to arthritis. During hospitalization, it was noted he had normocytic anemia. This would need further work-up with his primary care physician. At the time of discharge his hemoglobin was 11.2. It should also be noted that his inflammatory markers including ESR was elevated at 86 however downtrending. This should be repeated to ensure that it continues to down trend. If it remains persistently elevated then a rheumatology consult is warranted. Please note, his potassium supplementation was discontinued at this time as his potassium was adequate. He should have repeat chemistries done in 3 to 5 days to ensure potassium is adequate. At the time of discharge, patient reported improvement in his lower extremity pain. There was no evidence of cellulitis clinically. He was afebrile without leukocytosis, and his renal function had improved This plan was explained to the patient in entirety including his inflammatory markers. He was in agreement. He will be transferred to ARU; where ongoing monitor including esr. DISCHARGE MEDICATIONS: Please see below. ALLERGIES: Please see below. PHYSICAL EXAMINATION ON DISCHARGE: VITAL SIGNS: Please see below. General: Lying in bed, no acute distress Head/Neck/Throat: Trachea midline, mucous membranes moist Eyes: Sclera anicteric, no erythema or discharge appreciated bilaterally. Thorax: Normal respiratory effort on room air, lungs clear to auscultation bilaterally, no wheezes/rales/rhonchi Cardiovascular: Normal rate, regular rhythm, normal S1, S2; no S3, S4, rubs/gallops/murmurs Abdomen: Bowel sounds present, soft/nontender/nondistended Genitourinary: No CVA tenderness, no Concepcion in place Musculoskeletal: Limited range of motion in his lower extremities (this is chronic). No tenderness reported with passive palpation of the right ankle. He is able to move the right ankle -eversion/expiration, flexion and extension. Skin: Venous stasis, and hyperpigmentation of lower extremities. No erythema appreciated now. Neurologic: AAOx3, sign language is used for interpretation which he participates in adequately LABORATORY DATA: Please see below. IMAGING: Please refer to imaging section TIME SPENT ON DISCHARGE: 31 minutes. Vital Signs/I&Os Vital Signs Date Time Temp Pulse Resp B/P (MAP) Pulse Ox O2 Delivery O2 Flow Rate FiO2 06/19/21 09:17 18 Room Air 06/19/21 09:00 59 116/57 06/19/21 07:02 98.1 92 I&O- Last 24 Hours up to 6 AM 06/19/21 06:00 Intake Total 600 ml Output Total 2550 ml Balance -1950 ml Laboratory Data Labs 24H Laboratory Tests 2 06/19/21 06:09: Nucleated Red Blood Cells % (auto) 0.0, Erythrocyte Sedimentation Rate 86H, Anion Gap 4L, Glomerular Filtration Rate > 60.0, Calcium Level 9.3, Phosphorus Level 4.1, Magnesium Level 2.5H, Total Creatine Kinase 60, Creatine Kinase MB 2.0, Creatine Kinase MB Relative Index 3.33 CBC/BMP Laboratory Tests 06/19/21 06:09 Discharge Medications Scheduled Aspirin (Aspirin EC) 81 Mg Tablet.dr, 81 MG PO DAILY, (Reported) Atenolol (Atenolol) 25 Mg Tablet, 25 MG PO DAILY, (Reported) hold if hr < 60 hold if blood preassure is low Clopidogrel Bisulfate (Clopidogrel) 75 Mg Tablet, 75 MG PO DAILY, (Reported) Eyelid Cleanser Comb No.7 (Ocusoft Lid Scrub) 1 Each Kit, 1 DOSE TOP BID, (Reported) Fluticasone/Vilanterol (Breo Ellipta 100-25 Mcg INH) 1 Each Blst.w.dev, 1 PUFF INH DAILY, (Reported) Furosemide (Furosemide) 80 Mg Tablet, 80 MG PO DAILY, (Reported) Latanoprost (Xalatan) 0.005% 2.5ML Drops, 1 DROP OU QHS, (Reported) [place]-3 Fatty Acids/Fish Oil (Fish Oil 1,000 mg Capsule) 1 Each Capsule, 1,000 MG PO DAILY, (Reported) Pravastatin Sodium (Pravastatin Sodium) 40 Mg Tablet, 40 MG PO DAILY, (Reported) Psyllium Husk (Reguloid) 0.4 Gm Capsule, 800 MG PO TID, (Reported) Scheduled PRN Albuterol Sulfate (Ventolin Hfa) 18 Gm Hfa.aer.ad, 2 PUFFS INH QID PRN for SHORTNESS OF BREATH, (Reported) Carboxymethyl/Glycerin/Poly80 (Refresh Optive Advanced Drops) 10 Ml Drops, 1 DROP OU QID PRN for DRY EYES, (Reported) Allergies Coded Allergies: No Known Allergies (Verified , 03/25/18) CODY RESTREPO M.D. Jun 19, 2021 09:46
[2021-06-19 10:33] LABS: ALBUMIN 2.6 GM/DL (3.2-5.2); ALT/SGPT 25 U/L (12-78); BILIRUBIN,DIRECT 0.1 MG/DL (0.0-0.2); BILIRUBIN,TOTAL 0.4 MG/DL (0.2-1.0); TOTAL PROTEIN 6.6 GM/DL (6.4-8.2)
== END 2021-06-19 18:48 | DRG 871 ==
LOC: M ED 21:30 → M ED INP 21:31 → ENRESERV 06-07 10:45 → M PCU 06-07 11:18 → M MS5PR 06-10 06:37
PROVIDERS: ADMIT Family Medicine; ATTEND Internal Medicine
DX: A41.9 Sepsis, unspecified organism (principal); I50.31 Acute diastolic (congestive) heart failure; N17.9 Acute kidney failure, unspecified; M62.82 Rhabdomyolysis; L03.119 Cellulitis of unspecified part of limb; L97.929 Non-pressure chronic ulcer of unspecified part of left lower leg with unspecified severity; L97.919 Non-pressure chronic ulcer of unspecified part of right lower leg with unspecified severity; Z16.30 Resistance to unspecified antimicrobial drugs; I10 Essential (primary) hypertension; E11.621 Type 2 diabetes mellitus with foot ulcer; E11.51 Type 2 diabetes mellitus with diabetic peripheral angiopathy without gangrene; H91.90 Unspecified hearing loss, unspecified ear; G47.33 Obstructive sleep apnea (adult) (pediatric); R26.89 Other abnormalities of gait and mobility; Z79.82 Long term (current) use of aspirin; Z79.899 Other long term (current) drug therapy; Z87.891 Personal history of nicotine dependence

== ENCOUNTER 2021-06-19 14:10 | Inpatient (IN) | payer MEDICARE, OTHER ==
[~2021-06-19] VITALS: Ht 172.7 cm; Wt 103.9 kg
[~2021-06-19 14:10] MED LIST changes: +ASPI-161 PO; -ASPI-281 PO; +ASPI-310 PO; +FISH1000 PO; +NYST10CR EXT; +OCUS0.02 EXT; +REFRSOL OU; +[UNRECOGNIZED DRUG - CODE] TOP
[2021-06-19] MEDS ORDERED: BISACODYL 10 MG SUPP PR PRN (15:25)
--- NOTE | 2021-06-19 17:28 | HPEPDOC ---
Thermospray Operator Note DATE OF ADMISSION: 06-19-21 DATE OF SERVICE: 06-20-21 TIME OF ADMISSION: Please refer to physician's admission order. SOURCE OF ADMISSION INFORMATION: [facility] record and patient CHIEF COMPLAINT: PAD with gait impairment HISTORY OF PRESENT ILLNESS: 81M pmh HTN, NICOLAS, DM2, restrictive lung disease, HLD, former smoker, PAD s/p LE extremity balloon angioplasties, bilat LE ulcers presented to [facility] ED on 06-07-21 reporting he fell at home with LOC and mid-back pain. He was diagnosed with sepsis, started on IV antibiotics for right LE cellulitis, with MRI foot negative for osteomyelitis. Additionally he had acute diastolic CHF requiring aggressive diuresis with CHERI. He had difficulty with walking due to weakness and pain with mobility and ADL impairments below his prior level of function and deemed medically appropriate for discharge to ARU on 06-19-21. REVIEW OF SYSTEMS: The following is a completed review of systems and has been reviewed. Review of systems otherwise unremarkable. PAIN: Patient self reports no pain EYES: No recent vision changes EARS, NOSE, & THROAT: +deaf CARDIOVASCULAR: Denies chest pain or palpitations PULMONARY: Denies shortness of breath GASTROINTESTINAL: Denies constipation/diarrhea GENITOURINARY: no dysuria MUSCULOSKELETAL:+generalized weakness NEUROLOGICAL: denies paresthesias HEMATOLOGICAL: denies easy bruising SKIN: LE wounds PSYCHIATRIC: Unremarkable All other review of systems found to be negative. PAST MEDICAL HISTORY: as per HPI PAST SURGICAL HISTORY: Knee surgery, shoulder arthroplasty, skin excision ALLERGIES: Please see below. MEDICATIONS: Please see below. SOCIAL HISTORY: former smoker, no etoh/illicit drugs DIET: low sodium PHYSICAL EXAMINATION: VITAL SIGNS: Please see below. GENERAL: Pleasant and cooperative. No acute distress. HEENT: PERRL. Extraocular movements intact. Clear conjunctiva CARDIOVASCULAR: Regular rate and rhythm. No murmurs, rubs, or gallops LUNGS: Clear to auscultation bilaterally. No wheezes. No rhonchi ABDOMEN: Soft, nontender, nondistended. Positive bowel sounds. Normal active bowel sounds NEUROLOGICAL: Cranial nerves II through XII grossly intact. Sensation grossly intact able to follow commands and answer questions appropriately (using pad and pen) EXTREMITIES: 5\5 strength bilateral upper extremities. 5\5 strength right lower extremity. 5/5 strength in left lower extremity. SKIN: bilat LE venous stasis changes, left foot with maceration between toes and on top of foot LABORATORY DATA: Please see below. IMAGING:Imaging documentation personally reviewed by record FUNCTIONAL STATUS: Premorbid: Independent with all activities of daily life as well as mobility On Admission: Min assist for bed mobility, functional transfers, ambulation, dressing, toileting GOALS: Mod-I for bed mobility, functional transfers, ambulation, dressing, toileting, bathing ASSESSMENT:81-year-old M with past medical history of PAD, CHF who presents status post weakness in setting of sepsis due to LE cellulitis PLAN: 1. Rehab- PT/OT- advance mobility and ADLs, strengthen/stretch/maintain ROM all 4 limbs 2. Cardiac- diastolic CHF with recent exacerbation, fluid restrict, daily weights, lasix -HTN cont BP meds -PAD- cont ASA and Plavix -HLD- statin -medicine consulted to assist in management 3. Resp- monitor for infection, former smoker with restrictive lung disease- cont combivent and symbicort 4. GI ppx- protonix 5. DVT ppx- lovenox 6. ID- s/p course of antibiotics for LE cellulitis, monitor 7. Pain- tylneol 8. Skin- LE wounds please see dressing changes 9. Dispo- TBD POST ADMISSION PHYSICIAN EVALUATION: Medical and functional status: Description of medical status, medical assessment: As above. Rehabilitation diagnosis and current and prior cold morbid medical conditions as above. Risk of complications and plans to mitigate them as above. Description of functional status current status is as above. Prior status as above. Status compared to preadmission: There are no clinically significant differences between the patient's current status and the information described on the preadmission screening document. Treatment plan anticipated: Treatment plan is as described above. Required disciplines including physical therapy, occupational therapy, others as noted above. Intensity of services: 3 hours a day, 6 days a week. Special considerations: There are no specific special or safety considerations that would likely preclude immediate implementation of an intensive rehabilitation program or subsequently influence the plan of care. ATTESTATION: Considering all the information above, it is my best judgment that this patient requires intensive rehabilitation therapy as described above and an inpatient hospital environment due to the complexity of nursing, medical, and rehabilitation needs required by the patient. Furthermore, this patient can reasonably be expected to participate in an benefit from an inpatient rehabilitation stay with an interdisciplinary team approach to the delivery of rehabilitation care under the direction and supervision of rehabilitation physician. PROGNOSIS: Excellent ESTIMATED LENGTH OF [id number] days. PROJECTED DISCHARGE DESTINATION: Home with family support and any durable medical equipment required to increase functional safety and mobility TIME SPENT COUNSELING AND COORDINATING INITIAL CARE: Greater than 70 minutes. Vital Signs Vital Signs Date Time Temp Pulse Resp B/P (MAP) Pulse Ox O2 Delivery O2 Flow Rate FiO2 06/19/21 20:00 98.4 60 18 121/57 (78) 92 Room Air Home Medications Scheduled Aspirin (Aspirin EC) 81 Mg Tablet.dr, 81 MG PO DAILY, (Reported) Atenolol (Atenolol) 25 Mg Tablet, 25 MG PO DAILY, (Reported) hold if hr < 60 hold if blood preassure is low Clopidogrel Bisulfate (Clopidogrel) 75 Mg Tablet, 75 MG PO DAILY, (Reported) Eyelid Cleanser Comb No.7 (Ocusoft Lid Scrub) 1 Each Kit, 1 DOSE TOP BID, (Reported) Fluticasone/Vilanterol (Breo Ellipta 100-25 Mcg INH) 1 Each Blst.w.dev, 1 PUFF INH DAILY, (Reported) Furosemide (Furosemide) 80 Mg Tablet, 80 MG PO DAILY, (Reported) Latanoprost (Xalatan) 0.005% 2.5ML Drops, 1 DROP OU QHS, (Reported) [place]-3 Fatty Acids/Fish Oil (Fish Oil 1,000 mg Capsule) 1 Each Capsule, 1,000 MG PO DAILY, (Reported) Pravastatin Sodium (Pravastatin Sodium) 40 Mg Tablet, 40 MG PO DAILY, (Reported) Psyllium Husk (Reguloid) 0.4 Gm Capsule, 800 MG PO TID, (Reported) Scheduled PRN Albuterol Sulfate (Ventolin Hfa) 18 Gm Hfa.aer.ad, 2 PUFFS INH QID PRN for S HORTNESS OF BREATH, (Reported) Carboxymethyl/Glycerin/Poly80 (Refresh Optive Advanced Drops) 10 Ml Drops, 1 DROP OU QID PRN for DRY EYES, (Reported) Allergies Coded Allergies: No Known Allergies (Verified , 03/25/18) A-FIB/CHADSVASC A-FIB History Current/History of A-Fib/PAF?: No Current PO Anticoag Therapy: No AMADOR LANDIN MD Jun 19, 2021 17:28
[2021-06-19 20:00] VITALS: BP 121/57
[2021-06-19] MEDS: COMBIVENT RESPIMAT 100-20MCG INHALER 4GM INH SCH (20:00)
[2021-06-19] MEDS: SYMBICORT 160/4.5MCG INHALER 6GM INH SCH (20:00)
[2021-06-19] MEDS: DOCUSATE SODIUM 100MG CAPSULE PO SCH (20:27)
[2021-06-19] MEDS: oxyCODONE 5MG TAB PO PRN (20:27)
[2021-06-19] MEDS: ACETAMINOPHEN 500 MG TAB PO SCH (20:27)
[2021-06-19] MEDS: LATANOPROST 0.005% OPHTH SOLN 2.5 ML OU SCH (20:28)
[2021-06-19] MEDS: REMEDY PHYTOPLEX Z-GUARD PASTE 113GM TUBE (FROM STOREROOM PRODUCT) TOP SCH (20:28)
[2021-06-19] MEDS: SENNA 8.6 MG TAB (SENOKOT) PO SCH (20:28)
[2021-06-19] MEDS ORDERED: PRAVASTATIN 20 MG TAB PO SCH (21:00)
[2021-06-20] MEDS: oxyCODONE 5MG TAB PO PRN ×4 (00:53→15:50)
[2021-06-20 06:00] VITALS: BP 163/70
[2021-06-20] MEDS: COMBIVENT RESPIMAT 100-20MCG INHALER 4GM INH SCH ×3 (07:42→19:24)
[2021-06-20] MEDS: SYMBICORT 160/4.5MCG INHALER 6GM INH SCH ×2 (07:43→20:00)
[2021-06-20] MEDS ORDERED: atenoloL 25 MG TAB PO SCH (09:00)
[2021-06-20] MEDS: DOCUSATE SODIUM 100MG CAPSULE PO SCH ×3 (09:00→21:11)
[2021-06-20] MEDS: PANTOPRAZOLE 40MG TAB (PROTONIX) PO SCH (09:46)
[2021-06-20] MEDS: ACETAMINOPHEN 500 MG TAB PO SCH ×3 (09:46→21:13)
[2021-06-20] MEDS: OMEGA-3 1000MG CAPSULE PO SCH (09:47)
[2021-06-20] MEDS: PRAVASTATIN 20 MG TAB PO SCH (09:47)
[2021-06-20] MEDS: FUROSEMIDE 40 MG TAB PO SCH (09:47)
[2021-06-20] MEDS: ASPIRIN 81MG ENTERIC TABLET PO SCH (09:47)
[2021-06-20] MEDS: ENOXAPARIN 40MG/0.4ML SYRINGE (J1650 PER 10MG) SC SCH (09:48)
[2021-06-20] MEDS: REMEDY PHYTOPLEX Z-GUARD PASTE 113GM TUBE (FROM STOREROOM PRODUCT) TOP SCH ×3 (09:48→21:18)
[2021-06-20] MEDS: CLOPIDOGREL 75 MG TAB PO SCH (09:49)
[2021-06-20 14:00] VITALS: BP 155/72
[2021-06-20] MEDS ORDERED: GLUCOSE 4GM CHEW TABLET PO PRN (17:10)
[2021-06-20] MEDS ORDERED: GLUCAGON INJ 1MG VIAL SC PRN (17:10)
[2021-06-20] MEDS ORDERED: DEXTROSE 50% 50 ML SYRINGE IV PRN (17:10)
--- NOTE | 2021-06-20 17:13 | IPNPDOC ---
Text Note Date of Service The patient was seen on 06/20/21. NOTE Subjective: No any acute events overnight. Patient stated that he is doing better today. Objective: GENERAL APPEARANCE: NAD HEENT: no scleral icterus, no JVD, EOMI CARDIOVASCULAR: S1S2, bradycardiac rate 55 LUNGS: Mildly coarse lung sounds bilaterally ABDOMEN: soft & not tender w palpation MUSCULOSKELETAL: no cyanosis, no swelling INTEGUMENT: no generalized pallor, skin changes of lower extremities consistent with venous stasis bilaterally NEUROLOGICAL: cranial nerve function from 2-12 intact, follows commands Assessment and plan Patient is 81 years old male with past medical history of deafness, hy pertension, NICOLAS, DM type II, and PAD status post bilateral lower extremity angioplasties was transferred to acute rehab for continuation of treatment. Patient completed treatment with broad-spectrum antibiotics for sepsis secondary to leg cellulitis Bradycardia Most likely secondary to beta-paul I will reduce the dose of atenolol from 25 mg to 12.5 Hypertension I will add lisinopril 20 mg to his medical regimen in order to better control high blood pressure Type 2 diabetes Insulin sliding scale Diabetes diet Deconditioning PT/OT Diastolic CHF Not in acute exacerbation Continue furosemide p.o. Echo from 05/31/21 noted LVEF of 65% and grade 1 diastolic HF PAD Continue with aspirin, plavix, and statin therapy DVT prophylaxis Continue Lovenox subcutaneously VS,Fishbone, I+O VS, Fishbone, I+O Vital Signs Date Time Temp Pulse Resp B/P (MAP) Pulse Ox O2 Delivery O2 Flow Rate FiO2 06/20/21 16:20 18 Room Air 06/20/21 09:47 60 150/70 06/20/21 06:00 97.6 99 I&O- Last 24 Hours up to 6 AM 06/20/21 06:00 Output Total 600 ml Balance -600 ml NOREEN MAGDALENO DO Jun 20, 2021 17:13
[2021-06-20] MEDS: MAGNESIUM SULFATE GRANULES(EPSOM SALT) 1LB TOP SCH (17:15)
[2021-06-20] MEDS: HumaLOG INSULIN (NovoLOG) PER UNIT SC SCH ×2 (17:30→21:00)
[2021-06-20 20:00] VITALS: BP 128/58
[2021-06-20] MEDS: SENNA 8.6 MG TAB (SENOKOT) PO SCH (21:11)
[2021-06-20] MEDS: LATANOPROST 0.005% OPHTH SOLN 2.5 ML OU SCH (22:35)
[2021-06-21] MEDS: oxyCODONE 5MG TAB PO PRN ×5 (01:57→22:07)
[2021-06-21] MEDS: LIDOCAINE 5% (LIDODERM) PATCH TD SCH (06:13)
[2021-06-21 06:41] VITALS: BP 146/64
[2021-06-21] MEDS: SYMBICORT 160/4.5MCG INHALER 6GM INH SCH ×2 (07:22→19:38)
[2021-06-21] MEDS: COMBIVENT RESPIMAT 100-20MCG INHALER 4GM INH SCH ×3 (07:22→19:37)
[2021-06-21] MEDS: HumaLOG INSULIN (NovoLOG) PER UNIT SC SCH ×4 (07:30→20:54)
[2021-06-21] MEDS: FUROSEMIDE 40 MG TAB PO SCH (08:34)
[2021-06-21] MEDS: PRAVASTATIN 20 MG TAB PO SCH (08:34)
[2021-06-21] MEDS: CLOPIDOGREL 75 MG TAB PO SCH (08:34)
[2021-06-21] MEDS: OMEGA-3 1000MG CAPSULE PO SCH (08:35)
[2021-06-21] MEDS: PANTOPRAZOLE 40MG TAB (PROTONIX) PO SCH (08:35)
[2021-06-21] MEDS: ASPIRIN 81MG ENTERIC TABLET PO SCH (08:35)
[2021-06-21] MEDS: DOCUSATE SODIUM 100MG CAPSULE PO SCH ×2 (08:35→20:52)
[2021-06-21] MEDS: ATENOLOL 12.5MG PER 1/2 TABLET PO SCH (08:35)
[2021-06-21] MEDS: ACETAMINOPHEN 500 MG TAB PO SCH ×3 (08:35→20:53)
[2021-06-21] MEDS: VANICREAM MOISTURIZING SKIN CREAM 113GM TUBE TOP SCH (08:36)
[2021-06-21] MEDS: ENOXAPARIN 40MG/0.4ML SYRINGE (J1650 PER 10MG) SC SCH (08:36)
[2021-06-21] MEDS: REMEDY PHYTOPLEX Z-GUARD PASTE 113GM TUBE (FROM STOREROOM PRODUCT) TOP SCH ×3 (09:00→21:56)
[2021-06-21 10:07] LABS: BASO # 0.1 10^3/uL (0.0-0.2); BASO % 0.9 % (0.0-1.0); EOS # 0.4 10^3/uL (0.0-0.5); EOS % 5.6 % (0.0-3.0); HEMATOCRIT 38.6 % (42.0-52.0); HEMOGLOBIN 12.3 g/dl (13.5-17.5); LYMPH # 1.1 10^3/uL (1.5-5.0); MEAN CORPUSCULAR HEMOGLOBIN 30.2 pg (27.0-33.0); MEAN CORPUSCULAR HGB CONC 31.9 g/dl (32.0-36.5); MEAN CORPUSCULAR VOLUME 94.8 fl (80.0-96.0); MONO # 0.8 10^3/uL (0.0-0.8); MONO % 10.9 % (2.0-8.0); NEUTROPHILS % 67.3 % (36.0-66.0); PLATELET COUNT, AUTOMATED 419 10^3/uL (150-450); RED BLOOD COUNT 4.07 10^6/uL (4.30-6.10); WHITE BLOOD COUNT 7.5 10^3/uL (4.0-10.0)
[2021-06-21 10:45] LABS: BLOOD UREA NITROGEN 20 MG/DL (7-18); CALCIUM LEVEL 9.8 MG/DL (8.8-10.2); CARBON DIOXIDE LEVEL 29 MEQ/L (21-32); CHLORIDE LEVEL 106 MEQ/L (98-107); CREATININE FOR GFR 0.98 MG/DL (0.70-1.30); GLOMERULAR FILTRATION RATE > 60.0 (>35); GLUCOSE, FASTING 112 MG/DL (70-100); POTASSIUM SERUM 4.1 MEQ/L (3.5-5.1); SODIUM LEVEL 140 MEQ/L (136-145)
[2021-06-21] MEDS ORDERED: FUROSEMIDE 20 MG TAB PO SCH (13:30)
--- NOTE | 2021-06-21 14:48 | IPNPDOC ---
PM&R Progress Note DATE OF SERVICE: Jun 21, 2021 Research Chief Engineer Progress Note Subjective: Patient seen with tail trimmer stating his right ankle is still bothering him and it is painful when he bears weight. REVIEW OF SYSTEMS: The following is a completed review of systems and has been reviewed. Review of systems otherwise unremarkable. PAIN: Patient self reports no pain EYES: No recent vision changes EARS, NOSE, & THROAT: +deaf CARDIOVASCULAR: Denies chest pain or palpitations PULMONARY: Denies shortness of breath GASTROINTESTINAL: Denies constipation/diarrhea GENITOURINARY: no dysuria MUSCULOSKELETAL:+generalized weakness NEUROLOGICAL: denies paresthesias HEMATOLOGICAL: denies easy bruising SKIN: LE wounds PSYCHIATRIC: Unremarkable All other review of systems found to be negative. PHYSICAL EXAMINATION: VITAL SIGNS: Please see below. GENERAL: Pleasant and cooperative. No acute distress. HEENT: PERRL. Extraocular movements intact. Clear conjunctiva CARDIOVASCULAR: Regular rate and rhythm. No murmurs, rubs, or gallops LUNGS: Clear to auscultation bilaterally. No wheezes. No rhonchi ABDOMEN: Soft, nontender, nondistended. Positive bowel sounds. Normal active bowel sounds NEUROLOGICAL: Cranial nerves II through XII grossly intact. Sensation grossly intact able to follow commands and answer questions appropriately (using pad and pen) EXTREMITIES: 5\5 strength bilateral upper extremities. 5\5 strength right lower extremity. 5/5 strength in left lower extremity. +bilat LE edema right ankle TTP lateral malleoli, no instability, edematous throughout foot/ankle/calf, no warmth to touch SKIN: bilat LE venous stasis changes, left foot with maceration between toes and on top of foot ASSESSMENT:81-year-old M with past medical history of PAD, CHF who presents status post weakness in setting of sepsis due to LE cellulitis PLAN: 1. Rehab- PT/OT- advance mobility and ADLs, strengthen/stretch/maintain ROM all 4 limbs 2. Cardiac- diastolic CHF with recent exacerbation, fluid restrict, daily weights, lasix -HTN cont BP meds -PAD- cont ASA and Plavix -HLD- statin -medicine consulted to assist in management 3. Resp- monitor for infection, former smoker with restrictive lung disease- cont combivent and symbicort 4. GI ppx- Protonix 5. DVT ppx- lovenox 6. ID- s/p course of antibiotics for LE cellulitis, monitor 7. Pain- Tylenol and oxycodone -right ankle pain- patient reporting pain with weight bearing with TTP right lateral ankle without laxity, no notable warmth, edematous LE, will order uric acid to check for possible gout, MRI foot does not explicitly comment on the ankle, will consider MRI ankle, in the meantime trial of lidoderm patch, f/u uric acid, and have asked therapy to utilize swedo brace for ankle support 8. Skin- LE wounds please see dressing changes 9. Dispo- TBD Allergies Coded Allergies: No Known Allergies (Verified , 03/25/18) Vital Signs Vital Signs Date Time Temp Pulse Resp B/P (MAP) Pulse Ox O2 Delivery O2 Flow Rate FiO2 06/21/21 11:15 18 06/21/21 08:35 62 139/66 06/21/21 06:44 Room Air 06/21/21 06:41 97.8 96 Laboratory Data CBC/BMP Laboratory Tests 06/21/21 09:56 Labs 24H Laboratory Tests 2 06/20/21 17:21: Bedside Glucose (Misc Panel) 88 06/20/21 20:20: Bedside Glucose (Misc Panel) 99 06/21/21 06:19: Bedside Glucose (Misc Panel) 89 06/21/21 09:56: Immature Granulocyte % (Auto) 0.3, Neutrophils (%) (Auto) 67.3H, Lymphocytes (%) (Auto) 15.0L, Monocytes (%) (Auto) 10.9H, Eosinophils (%) (Auto) 5.6H, Basophils (%) (Auto) 0.9, Neutrophils # (Auto) 5.0, Lymphocytes # (Auto) 1.1L, Monocytes # (Auto) 0.8, Eosinophils # (Auto) 0.4, Basophils # (Auto) 0.1, Nucleated Red Blood Cells % (auto) 0.0, Anion Gap 5L, Glomerular Filtration Rate > 60.0, Calcium Level 9.8 06/21/21 11:52: Bedside Glucose (Misc Panel) 99 Current Medications Current Medications Current Medications Medications (Trade) Dose Ordered Sig/Geovany Route PRN Reason Start Time Stop Time Status Last Admin Dose Admin Acetaminophen (Tylenol Tab) 1,000 mg TID PO 06/19/21 21:00 06/21/21 08:35 Albuterol/ Ipratropium (Combivent Respimat 100-20mcg) 1 puff RTID INH 06/19/21 20:00 06/21/21 07:22 Aspirin (Ecotrin) 81 mg DAILY PO 06/20/21 09:00 06/21/21 08:35 Atenolol (Tenormin) 12.5 mg DAILY PO 06/21/21 09:00 06/21/21 08:35 Atenolol (Tenormin) 25 mg DAILY PO 06/20/21 09:00 06/20/21 17:09 DC 06/20/21 09:47 Bisacodyl (Dulcolax Suppository) 10 mg DAILYPRN PRN [place] CONSTIPATION 06/19/21 15:25 Budesonide/ Formoterol Fumarate (Symbicort 160/ 4.5mcg) 2 puff RBID INH 06/19/21 20:00 06/21/21 07:22 Clopidogrel Bisulfate (PLAVix) 75 mg DAILY PO 06/20/21 09:00 06/21/21 08:34 Dextrose (Dextrose 50%) 25 ml ASDIRECTED PRN IV SEE LABEL COMMENTS 06/20/21 17:10 Docusate Sodium (Colace) 100 mg BID PO 06/19/21 21:00 06/21/21 08:35 Emollient Cream (Vanicream) daily per wound care instructions DAILY TOP 06/21/21 09:00 06/21/21 08:36 Enoxaparin Sodium (Lovenox) 40 mg DAILY SC 06/20/21 09:00 06/21/21 08:36 Fish Oil ([place]-3 (1000mg)) 1 cap DAILY PO 06/20/21 09:00 06/21/21 08:35 Furosemide (Lasix) 20 mg BID@09,17 PO 06/21/21 13:30 06/21/21 13:59 DC Furosemide (Lasix) 40 mg DAILY PO 06/20/21 09:00 06/21/21 08:34 Glucagon (Glucagon) 1 mg ASDIRECTED PRN SC SEE LABEL COMMENTS 06/20/21 17:10 Glucose (Glucose) 16 GM ASDIRECTED PRN PO SEE LABEL COMMENTS 06/20/21 17:10 Insulin Human Lispro (HumaLOG INSULIN) SEE PROTOCOL TABLE AC SC 06/20/21 17:30 Insulin Human Lispro (HumaLOG INSULIN) SEE PROTOCOL TABLE QHS SC 06/20/21 21:00 Latanoprost (Xalatan 0.005% Op Soln) 1 drop QHS OU 06/19/21 21:00 06/20/21 22:35 Lidocaine (Lidoderm Patch) 1 patch DAILY@0700 TD 06/21/21 07:00 06/21/21 06:13 Lisinopril (Prinivil) 20 mg DAILY PO 06/21/21 09:00 06/21/21 08:35 Magnesium Sulfate (Epsom Salt) daily at 5pm soak bilate... DAILY@1700 TOP 06/20/21 17:00 06/20/21 17:15 Non-Formulary Medication ( See Comment Field Below ) REMOVE LIDODERM PATCH DAILY@1700 XX 06/21/21 17:00 Oxycodone HCl (Roxicodone, Oxyir) 5 mg Q4HP PRN PO MODERATE PAIN (PS 5-7) 06/19/21 15:25 06/21/21 10:29 Pantoprazole Sodium (Protonix) 40 mg DAILY PO 06/20/21 09:00 06/21/21 08:35 Pravastatin Sodium (Pravachol) 40 mg DAILY PO 06/20/21 09:00 06/21/21 08:34 Pravastatin Sodium (Pravachol) 40 mg QHS PO 06/19/21 21:00 06/19/21 16:56 DC Senna (Senokot) 1 tab QHS PO 06/19/21 21:00 06/20/21 21:11 AMADOR LANDIN MD Jun 21, 2021 14:48
[2021-06-21 15:06] LABS: URIC ACID 6.7 MG/DL (3.5-7.2)
[2021-06-21] MEDS: MAGNESIUM SULFATE GRANULES(EPSOM SALT) 1LB TOP SCH (17:20)
[2021-06-21] MEDS: **NOTE PATIENT COMMENT** MISC XX SCH (17:20)
[2021-06-21 20:07] VITALS: BP 100/60
[2021-06-21] MEDS: SENNA 8.6 MG TAB (SENOKOT) PO SCH (20:52)
[2021-06-21] MEDS: LATANOPROST 0.005% OPHTH SOLN 2.5 ML OU SCH (21:56)
[2021-06-22] MEDS: oxyCODONE 5MG TAB PO PRN ×4 (02:26→20:03)
[2021-06-22] MEDS: LIDOCAINE 5% (LIDODERM) PATCH TD SCH (05:57)
[2021-06-22 06:20] VITALS: BP 108/57
[2021-06-22] MEDS: SYMBICORT 160/4.5MCG INHALER 6GM INH SCH ×2 (08:00→20:00)
[2021-06-22] MEDS: COMBIVENT RESPIMAT 100-20MCG INHALER 4GM INH SCH ×3 (08:00→20:00)
[2021-06-22 08:06] LABS: BASO # 0.1 10^3/uL (0.0-0.2); BASO % 1.6 % (0.0-1.0); EOS # 0.4 10^3/uL (0.0-0.5); HEMOGLOBIN 12.1 g/dl (13.5-17.5); LYMPH # 1.7 10^3/uL (1.5-5.0); LYMPH % 24.1 % (24.0-44.0); MEAN CORPUSCULAR HGB CONC 31.8 g/dl (32.0-36.5); MEAN CORPUSCULAR VOLUME 94.3 fl (80.0-96.0); MONO # 0.9 10^3/uL (0.0-0.8); MONO % 12.3 % (2.0-8.0); NEUTROPHILS # 3.9 10^3/uL (1.5-8.5); NEUTROPHILS % 55.6 % (36.0-66.0); PLATELET COUNT, AUTOMATED 417 10^3/uL (150-450); RED BLOOD COUNT 4.03 10^6/uL (4.30-6.10)
[2021-06-22] MEDS: HumaLOG INSULIN (NovoLOG) PER UNIT SC SCH (08:31)
[2021-06-22] MEDS: PANTOPRAZOLE 40MG TAB (PROTONIX) PO SCH (08:33)
[2021-06-22] MEDS: ACETAMINOPHEN 500 MG TAB PO SCH ×3 (08:33→21:33)
[2021-06-22] MEDS: FUROSEMIDE 40 MG TAB PO SCH (08:33)
[2021-06-22] MEDS: ENOXAPARIN 40MG/0.4ML SYRINGE (J1650 PER 10MG) SC SCH (08:33)
[2021-06-22] MEDS: OMEGA-3 1000MG CAPSULE PO SCH (08:34)
[2021-06-22] MEDS: CLOPIDOGREL 75 MG TAB PO SCH (08:34)
[2021-06-22] MEDS: PRAVASTATIN 20 MG TAB PO SCH (08:34)
[2021-06-22] MEDS: ATENOLOL 12.5MG PER 1/2 TABLET PO SCH (08:34)
[2021-06-22] MEDS: REMEDY PHYTOPLEX Z-GUARD PASTE 113GM TUBE (FROM STOREROOM PRODUCT) TOP SCH ×3 (08:35→21:00)
[2021-06-22] MEDS: DOCUSATE SODIUM 100MG CAPSULE PO SCH ×2 (08:35→21:00)
[2021-06-22] MEDS: ASPIRIN 81MG ENTERIC TABLET PO SCH (08:35)
[2021-06-22] MEDS: VANICREAM MOISTURIZING SKIN CREAM 113GM TUBE TOP SCH (08:36)
[2021-06-22 08:40] LABS: CALCIUM LEVEL 9.5 MG/DL (8.8-10.2); CREATININE FOR GFR 1.51 MG/DL (0.70-1.30); GLOMERULAR FILTRATION RATE 47.3 (>35); POTASSIUM SERUM 4.3 MEQ/L (3.5-5.1)
[2021-06-22 09:44] LABS: C REACTIVE PROTEIN QUANTITATIV 3.31 MG/DL (0.00-0.30)
[2021-06-22 10:22] LABS: ERYTHROCYTE SEDIMENTATION RATE 79 mm/hr (0-20)
--- NOTE | 2021-06-22 10:57 | IPNPDOC ---
PM&R Progress Note DATE OF SERVICE: Jun 22, 2021 Assistant Grocery Progress Note Subjective: Patient seen in his room and says his right ankle pain is a little better today with the lidoderm patch, but he still has pain with weight bearing. REVIEW OF SYSTEMS: The following is a completed review of systems and has been reviewed. Review of systems otherwise unremarkable. PAIN: Patient self reports no pain EYES: No recent vision changes EARS, NOSE, & THROAT: +deaf CARDIOVASCULAR: Denies chest pain or palpitations PULMONARY: Denies shortness of breath GASTROINTESTINAL: Denies constipation/diarrhea GENITOURINARY: no dysuria MUSCULOSKELETAL:+generalized weakness NEUROLOGICAL: denies paresthesias HEMATOLOGICAL: denies easy bruising SKIN: LE wounds PSYCHIATRIC: Unremarkable All other review of systems found to be negative. PHYSICAL EXAMINATION: VITAL SIGNS: Please see below. GENERAL: Pleasant and cooperative. No acute distress. HEENT: PERRL. Extraocular movements intact. Clear conjunctiva CARDIOVASCULAR: Regular rate and rhythm. No murmurs, rubs, or gallops LUNGS: Clear to auscultation bilaterally. No wheezes. No rhonchi ABDOMEN: Soft, nontender, nondistended. Positive bowel sounds. Normal active bowel sounds NEUROLOGICAL: Cranial nerves II through XII grossly intact. Sensation grossly intact able to follow commands and answer questions appropriately (using pad and pen) EXTREMITIES: 5\5 strength bilateral upper extremities. 5\5 strength right lower extremity. 5/5 strength in left lower extremity. +bilat LE edema right ankle TTP lateral malleoli, no instability, edematous throughout foot/ankle/calf, no warmth to touch SKIN: bilat LE venous stasis changes, left foot not examined today ASSESSMENT:81-year-old M with past medical history of PAD, CHF who presents status post weakness in setting of sepsis due to LE cellulitis PLAN: 1. Rehab- PT/OT- advance mobility and ADLs, strengthen/stretch/maintain ROM all 4 limbs 2. Cardiac- diastolic CHF with recent exacerbation, fluid restrict, daily weights, lasix (d/c'd for now due to CHERI pending renal eval) -HTN cont BP meds -PAD- cont ASA and Plavix -HLD- statin -medicine consulted to assist in management 3. Resp- monitor for infection, former smoker with restrictive lung disease- cont combivent and symbicort 4. GI ppx- Protonix 5. DVT ppx- lovenox 6. ID- s/p course of antibiotics for LE cellulitis, monitor 7. Pain- Tylenol and oxycodone -right ankle pain- patient reporting pain with weight bearing with TTP right lateral ankle without laxity, no notable warmth, edematous LE, uric acid not elevated, MRI foot does not explicitly comment on the ankle, will order MRI ankle, in the meantime cont lidoderm patch and have asked therapy to utilize swedo brace for ankle support, suspect if he can be better diuresed his ankle pain will also improve 8. Skin- LE wounds please see dressing changes 9. Renal- Patient with CHERI and significant LE edema, have stopped TELLY and lasix for now, renal consulted to assist in fluid management and CHERI 10. Endo- patient on ISS, finger sticks all low, recent A1C 5.9%, patient does not appear to be diabetic at this time, will c/u to monitor FS and may d/c while here 11. Dispo- TBD Allergies Coded Allergies: No Known Allergies (Verified , 03/25/18) Vital Signs Vital Signs Date Time Temp Pulse Resp B/P (MAP) Pulse Ox O2 Delivery O2 Flow Rate FiO2 06/22/21 09:50 20 Room Air 06/22/21 08:34 62 118/60 06/22/21 06:20 97.3 93 Laboratory Data CBC/BMP Laboratory Tests 06/22/21 07:47 Labs 24H Laboratory Tests 2 06/21/21 11:52: Bedside Glucose (Misc Panel) 99 06/21/21 16:51: Bedside Glucose (Misc Panel) 86 06/21/21 20:43: Bedside Glucose (Misc Panel) 133H 06/22/21 05:34: Bedside Glucose (Misc Panel) 116H 06/22/21 07:47: Immature Granulocyte % (Auto) 0.4, Neutrophils (%) (Auto) 55.6, Lymphocytes (%) (Auto) 24.1, Monocytes (%) (Auto) 12.3H, Eosinophils (%) (Auto) 6.0H, Basophils (%) (Auto) 1.6H, Neutrophils # (Auto) 3.9, Lymphocytes # (Auto) 1.7, Monocytes # (Auto) 0.9H, Eosinophils # (Auto) 0.4, Basophils # (Auto) 0.1, Nucleated Red Blood Cells % (auto) 0.0, Erythrocyte Sedimentation Rate 79H, Anion Gap 5L, Glomerular Filtration Rate 47.3, Calcium Level 9.5, C-Reactive Protein, Quantitative 3.31H Current Medications Current Medications Current Medications Medications (Trade) Dose Ordered Sig/Geovany Route PRN Reason Start Time Stop Time Status Last Admin Dose Admin Acetaminophen (Tylenol Tab) 1,000 mg TID PO 06/19/21 21:00 06/22/21 08:33 Albuterol/ Ipratropium (Combivent Respimat 100-20mcg) 1 puff RTID INH 06/19/21 20:00 06/21/21 19:37 Amlodipine Besylate (Norvasc) 5 mg DAILY PO 06/23/21 09:00 Aspirin (Ecotrin) 81 mg DAILY PO 06/20/21 09:00 06/22/21 08:35 Atenolol (Tenormin) 12.5 mg DAILY PO 06/21/21 09:00 06/22/21 08:34 Atenolol (Tenormin) 25 mg DAILY PO 06/20/21 09:00 06/20/21 17:09 DC 06/20/21 09:47 Bisacodyl (Dulcolax Suppository) 10 mg DAILYPRN PRN [place] CONSTIPATION 06/19/21 15:25 Budesonide/ Formoterol Fumarate (Symbicort 160/ 4.5mcg) 2 puff RBID INH 06/19/21 20:00 06/21/21 07:22 Clopidogrel Bisulfate (PLAVix) 75 mg DAILY PO 06/20/21 09:00 06/22/21 08:34 Dextrose (Dextrose 50%) 25 ml ASDIRECTED PRN IV SEE LABEL COMMENTS 06/20/21 17:10 Docusate Sodium (Colace) 100 mg BID PO 06/19/21 21:00 06/22/21 08:35 Emollient Cream (Vanicream) daily per wound care instructions DAILY TOP 06/21/21 09:00 06/22/21 08:36 Enoxaparin Sodium (Lovenox) 40 mg DAILY SC 06/20/21 09:00 06/22/21 08:33 Fish Oil ([place]-3 (1000mg)) 1 cap DAILY PO 06/20/21 09:00 06/22/21 08:34 Furosemide (Lasix) 20 mg BID@09,17 PO 06/21/21 13:30 06/21/21 13:59 DC Furosemide (Lasix) 40 mg DAILY PO 06/20/21 09:00 06/22/21 09:28 DC 06/22/21 08:33 Glucagon (Glucagon) 1 mg ASDIRECTED PRN SC SEE LABEL COMMENTS 06/20/21 17:10 Glucose (Glucose) 16 GM ASDIRECTED PRN PO SEE LABEL COMMENTS 06/20/21 17:10 Insulin Human Lispro (HumaLOG INSULIN) SEE PROTOCOL TABLE AC SC 06/20/21 17:30 06/22/21 08:31 Insulin Human Lispro (HumaLOG INSULIN) SEE PROTOCOL TABLE QHS SC 06/20/21 21:00 Latanoprost (Xalatan 0.005% Op Soln) 1 drop QHS OU 06/19/21 21:00 06/21/21 21:56 Lidocaine (Lidoderm Patch) 1 patch DAILY@0700 TD 06/21/21 07:00 06/22/21 05:57 Lisinopril (Prinivil) 20 mg DAILY PO 06/21/21 09:00 06/22/21 09:27 DC 06/22/21 08:34 Magnesium Sulfate (Epsom Salt) daily at 5pm soak bilate... DAILY@1700 TOP 06/20/21 17:00 06/21/21 17:20 Non-Formulary Medication ( See Comment Field Below ) REMOVE LIDODERM PATCH DAILY@1700 XX 06/21/21 17:00 06/21/21 17:20 Oxycodone HCl (Roxicodone, Oxyir) 5 mg Q4HP PRN PO MODERATE PAIN (PS 5-7) 06/19/21 15:25 06/22/21 09:50 Pantoprazole Sodium (Protonix) 40 mg DAILY PO 06/20/21 09:00 06/22/21 08:33 Pravastatin Sodium (Pravachol) 40 mg DAILY PO 06/20/21 09:00 06/22/21 08:34 Pravastatin Sodium (Pravachol) 40 mg QHS PO 06/19/21 21:00 06/19/21 16:56 DC Senna (Senokot) 1 tab QHS PO 06/19/21 21:00 06/21/21 20:52 AMADOR LANDIN MD Jun 22, 2021 10:57
[2021-06-22 14:00] VITALS: BP 120/68
--- NOTE | 2021-06-22 16:11 | CR.PDOC ---
General Date of Consultation: Jun 22, 2021 Consultation REASON FOR CONSULTATION/CHIEF COMPLAINT: [Pain right lower extremity, difficulty with mobilization.]. HISTORY OF PRESENT ILLNESS: [History as per chart. Patient is deaf. Communication difficulty. 81M pmh HTN, NICOLAS, DM2, restrictive lung disease, HLD, former smoker, PAD s/p LE extremity balloon angioplasties, bilat LE ulcers presented to [facility] ED on 06-07-21 reporting he fell at home with LOC and mid-back pain. He was diagnosed with sepsis, started on IV antibiotics for right LE cellulitis, with MRI foot negative for osteomyelitis. Additionally he had acute diastolic CHF requiring aggressive diuresis with CHERI. He had difficulty with walking due to weakness and pain with mobility and ADL impairments below his prior level of function and deemed medically appropriate for discharge to ARU on 06-19-21. ]. ALLERGIES: Please see below. HOME MEDICATIONS: Please see below. PAST MEDICAL HISTORY: As Per, HPI PAST SURGICAL HISTORY: As per chart REVIEW OF SYSTEMS: The following is a completed review of systems and has been reviewed. Review of systems otherwise unremarkable. PAIN: Patient self reports no pain EYES: No recent vision changes EARS, NOSE, & THROAT: +deaf CARDIOVASCULAR: Denies chest pain or palpitations PULMONARY: Denies shortness of breath GASTROINTESTINAL: Denies constipation/diarrhea GENITOURINARY: no dysuria MUSCULOSKELETAL:+generalized weakness NEUROLOGICAL: denies paresthesias HEMATOLOGICAL: denies easy bruising SKIN: LE wounds PSYCHIATRIC: Unremarkable All other review of systems found to be negative. PHYSICAL EXAMINATION: VITAL SIGNS: Please see below. GENERAL APPEARANCE: [Elderly male sitting upright in chair. Alert. Difficult communicating due to hearing loss.]. HEENT: [No abnormality detected]. RESPIRATORY: [Breathing comfortably on room air]. CARDIOVASCULAR: [Deferred]. ABDOMEN: [Obese. Nontender]. EXTREMITIES: [Focused on lower extremities. Bilateral pitting edema lower extremities Bilateral lipodermatosclerosis with skin changes and edema. Significant hair loss. Unable to palpate pulses distally Patient points to pain in right foot. He is able to actively range his right ankle. Complains of pain throughout range of motion. Range of motion about 50%. Left foot noted bandage for skin ulcers. Patient is able to mobilize ankle and foot with no difficulty Denies any knee or hip pain.]. LABORATORY DATA: Please see below. ASSESSMENT/PLAN: 1. Significant bilateral peripheral vascular disease of the lower extremities. Significant Lipodermatosclerosis with pitting edema and macerated ulcers. Ulcers look clean and dry without signs of superficial infection. History of being treated with antibiotics for possible cellulitis. Blood work does not point to ongoing infection. 2. MRI of foot show no abnormality except for diffuse swelling. Patient is awaiting MRI of the ankle. I expect it will show more swelling but no bony pathology. 3.Given patient's comorbidities and peripheral vascular disease strongly recommend avoiding any surgery of the lower extremities. He would most likely develop nonhealing. Recommend continued mobilization. Optimize skin/wound care of lower extremities. Vital Signs/I&O Vital Signs Date Time Temp Pulse Resp B/P (MAP) Pulse Ox O2 Delivery O2 Flow Rate FiO2 06/22/21 15:30 20 Room Air 06/22/21 08:34 62 118/60 06/22/21 06:20 97.3 93 I&O- Last 24 Hours up to 6 AM 06/22/21 06:00 Intake Total 1000 ml Output Total 350 ml Balance 650 ml Laboratory Data Labs 24H Laboratory Tests 2 06/21/21 16:51: Bedside Glucose (Misc Panel) 86 06/21/21 20:43: Bedside Glucose (Misc Panel) 133H 06/22/21 05:34: Bedside Glucose (Misc Panel) 116H 06/22/21 07:47: Immature Granulocyte % (Auto) 0.4, Neutrophils (%) (Auto) 55.6, Lymphocytes (%) (Auto) 24.1, Monocytes (%) (Auto) 12.3H, Eosinophils (%) (Auto) 6.0H, Basophils (%) (Auto) 1.6H, Neutrophils # (Auto) 3.9, Lymphocytes # (Auto) 1.7, Monocytes # (Auto) 0.9H, Eosinophils # (Auto) 0.4, Basophils # (Auto) 0.1, Nucleated Red Blood Cells % (auto) 0.0, Erythrocyte Sedimentation Rate 79H, Anion Gap 5L, Glomerular Filtration Rate 47.3, Calcium Level 9.5, C-Reactive Protein, Quantitative 3.31H 06/22/21 11:27: Bedside Glucose (Misc Panel) 69L CBC/BMP Laboratory Tests 06/22/21 07:47 Allergies Coded Allergies: No Known Allergies (Verified , 03/25/18) Home Medications Scheduled Aspirin (Aspirin EC) 81 Mg Tablet.dr, 81 MG PO DAILY, (Reported) Atenolol (Atenolol) 25 Mg Tablet, 25 MG PO DAILY, (Reported) hold if hr < 60 hold if blood preassure is low Clopidogrel Bisulfate (Clopidogrel) 75 Mg Tablet, 75 MG PO DAILY, (Reported) Eyelid Cleanser Comb No.7 (Ocusoft Lid Scrub) 1 Each Kit, 1 DOSE TOP BID, (Reported) Fluticasone/Vilanterol (Breo Ellipta 100-25 Mcg INH) 1 Each Blst.w.dev, 1 PUFF INH DAILY, (Reported) Furosemide (Furosemide) 80 Mg Tablet, 80 MG PO DAILY, (Reported) Latanoprost (Xalatan) 0.005% 2.5ML Drops, 1 DROP OU QHS, (Reported) [place]-3 Fatty Acids/Fish Oil (Fish Oil 1,000 mg Capsule) 1 Each Capsule, 1,000 MG PO DAILY, (Reported) Pravastatin Sodium (Pravastatin Sodium) 40 Mg Tablet, 40 MG PO DAILY, (Reported) Psyllium Husk (Reguloid) 0.4 Gm Capsule, 800 MG PO TID, (Reported) Scheduled PRN Albuterol Sulfate (Ventolin Hfa) 18 Gm Hfa.aer.ad, 2 PUFFS INH QID PRN for SHORTNESS OF BREATH, (Reported) Carboxymethyl/Glycerin/Poly80 (Refresh Optive Advanced Drops) 10 Ml Drops, 1 DROP OU QID PRN for DRY EYES, (Reported) RAÚL HANSON MD Jun 22, 2021 16:11
[2021-06-22] MEDS: MAGNESIUM SULFATE GRANULES(EPSOM SALT) 1LB TOP SCH (17:00)
[2021-06-22] MEDS: SENNA 8.6 MG TAB (SENOKOT) PO SCH (21:00)
[2021-06-22] MEDS: **NOTE PATIENT COMMENT** MISC XX SCH (21:31)
[2021-06-22] MEDS: LATANOPROST 0.005% OPHTH SOLN 2.5 ML OU SCH (21:38)
--- NOTE | 2021-06-22 21:46 | REPVR ---
PROCEDURE INFORMATION: Exam: MR Right Lower Extremity Joint Without Contrast; Ankle Exam date and time: 06/22/2021 10:08 AM Age: 81 years old Clinical indication: Ankle and foot and lower leg; Right; Patient HX: Lower extremity painful to touch, discolored, throbs; Additional info: Unable to bear weight, pain, R/O ligmental injury/fracture TECHNIQUE: Imaging protocol: MR of the Right lower extremity without contrast. Exam focused on the ankle. COMPARISON: US EXTREMITY NON VASCUL LIMITED 06/10/2021 2:11 PM FINDINGS: There is a nondisplaced fracture through the anterior aspect of the distal fibula. There is no dislocation. Alignment is anatomic. There is mild bone marrow edema in the fibular tip and lateral aspect of the tibial plafond. Bone marrow signal is otherwise normal. Mild degenerative changes are noted. There is minimal loculated fluid and synovitis in the tibiotalar and posterior subtalar joints. There is diffuse soft tissue swelling and subcutaneous edema with overlying skin thickening. No organized fluid collection or soft tissue mass is identified. The visualized portions of the medial, lateral and anterior ankle tendons are intact. There is evidence of mild chronic plantar fasciitis and insertional Achilles tendinopathy/enthesopathy. There is normal signal in the sinus Tarsi. There are partial-thickness tears of the anterior and posterior cruciate ligaments. The calcaneofibular ligament is grossly intact. The visualized portions of the spring ligament and deltoid ligament complex are intact. IMPRESSION: 1. Nondisplaced fracture through the anterior aspect of the distal fibula. 2. Lateral ankle sprain with associated bone marrow contusions, as described above. 3. Diffuse soft tissue swelling and subcutaneous edema with overlying skin thickening. 4. Mild chronic plantar fasciitis and insertional Achilles tendinopathy/enthesopathy. 5. Additional findings, as above. Electronically signed by: Kareem Rogers On 06/22/2021 21:45:15 PM
[2021-06-22 23:00] VITALS: BP 109/53
[2021-06-23] MEDS: oxyCODONE 5MG TAB PO PRN ×6 (00:19→21:26)
[2021-06-23] MEDS: LIDOCAINE 5% (LIDODERM) PATCH TD SCH (06:15)
[2021-06-23 06:21] VITALS: BP 124/58
[2021-06-23] MEDS: SYMBICORT 160/4.5MCG INHALER 6GM INH SCH (07:13)
[2021-06-23] MEDS: COMBIVENT RESPIMAT 100-20MCG INHALER 4GM INH SCH ×3 (07:13→20:10)
[2021-06-23] MEDS: DOCUSATE SODIUM 100MG CAPSULE PO SCH ×2 (08:44→21:00)
[2021-06-23] MEDS: ENOXAPARIN 40MG/0.4ML SYRINGE (J1650 PER 10MG) SC SCH (08:44)
[2021-06-23] MEDS: OMEGA-3 1000MG CAPSULE PO SCH (08:44)
[2021-06-23] MEDS: PRAVASTATIN 20 MG TAB PO SCH (08:44)
[2021-06-23] MEDS: PANTOPRAZOLE 40MG TAB (PROTONIX) PO SCH (08:44)
[2021-06-23] MEDS: CLOPIDOGREL 75 MG TAB PO SCH (08:44)
[2021-06-23] MEDS: ASPIRIN 81MG ENTERIC TABLET PO SCH (08:44)
[2021-06-23] MEDS: ACETAMINOPHEN 500 MG TAB PO SCH ×3 (08:45→21:25)
[2021-06-23] MEDS: REMEDY PHYTOPLEX Z-GUARD PASTE 113GM TUBE (FROM STOREROOM PRODUCT) TOP SCH ×3 (08:45→21:00)
[2021-06-23] MEDS: VANICREAM MOISTURIZING SKIN CREAM 113GM TUBE TOP SCH (08:47)
[2021-06-23] MEDS: ATENOLOL 12.5MG PER 1/2 TABLET PO SCH (08:48)
[2021-06-23] MEDS ORDERED: amLODIPine 5 MG TAB PO SCH (09:00)
[2021-06-23 10:32] LABS: CALCIUM LEVEL 9.7 MG/DL (8.8-10.2); CREATININE FOR GFR 1.23 MG/DL (0.70-1.30); POTASSIUM SERUM 4.6 MEQ/L (3.5-5.1)
[2021-06-23] MEDS ORDERED: PILL CUTTER 1 EACH XX PRN (12:35)
[2021-06-23] MEDS: TORSEMIDE 20 MG TAB PO SCH ×2 (12:54→17:18)
[2021-06-23 14:00] VITALS: BP 136/63
--- NOTE | 2021-06-23 14:10 | CR ---
NEPHROLOGY CONSULTATION DATE: 06/22/2021 REQUESTING PHYSICIAN: Mira Schneider M.D. REASON FOR CONSULTATION: Acute kidney injury, peripheral edema and management of chronic diuretic therapy. HISTORY OF PRESENT ILLNESS: Mr. Kaushal Montalvo is an 81-year-old male. He is deaf. History is obtained from chart review and nursing staff also assists with sign language. Patient communicates via pen and paper. He has a past medical history of hypertension, sleep apnea, type 2 diabetes mellitus, restrictive lung disease, dyslipidemia, ex-smoker, peripheral arterial disease status post lower extremity balloon angioplasties, bilateral lower extremity ulcers and other comorbid conditions mentioned below. Patient was admitted to [facility] on June 07, 2021 after a fall at home with reported loss of consciousness. He was treated for lower extremity cellulitis and also treated for sepsis and given intravenous (IV) fluid. He does have a history of chronic diastolic congestive heart failure and the patient ultimately required diuresis. At home, he chronically takes Lasix 80 mg by mouth daily and patient has a baseline creatinine of around 1.1. Patient was deemed medically appropriate for discharge to the acute rehabilitation unit on June 19, 2021 and in the acute rehabilitation unit, he was continued on diuretic therapy and also started on lisinopril. Patient had acute kidney injury with creatinine 1.0 on June 21, 2021 and up to 1.5 today, June 22, 2021. His angiotensin converting enzyme (TELLY) inhibitor and diuretic were both held and nephrology evaluation was requested for help in the management of his chronic diastolic congestive heart failure in the setting of mild acute kidney injury. Patient is seen and examined this morning in the acute rehabilitation unit and his major complain is pain in the right foot and ankle. PAST MEDICAL HISTORY: 1. Chronic kidney disease (CKD) stage II, baseline creatinine around 1.1. 2. Diastolic congestive heart failure. 3. Hypertension. 4. Obstructive sleep apnea. 5. Type 2 diabetes. 6. Restrictive lung disease. 7. Dyslipidemia. 8. Ex-smoker. 9. Peripheral arterial disease status post lower extremity balloon angioplasties. 10. Chronic leg ulcers. 11. Obesity. 12. Deafness. PAST SURGICAL HISTORY: 1. Knee surgery. 2. Shoulder arthroplasty. 3. Skin excision. 4. Peripheral angioplasties. 5. History of melanoma status post skin excisions. SOCIAL HISTORY: He is an ex-smoker. No alcohol. No drugs. ALLERGIES: No known drug allergies. HOME MEDICATIONS: - aspirin 81 mg daily - atenolol 25 mg by mouth daily - Plavix 75 mg by mouth daily - furosemide 80 mg daily - [place] 3 fish oil one capsule daily - potassium chloride 20 mEq by mouth twice a day - pravastatin 40 mg by mouth daily - albuterol as needed FAMILY HISTORY: Reviewed and noncontributory. REVIEW OF SYSTEMS: CONSTITUTIONAL: Denies fevers or chills. EYES: Denies visual changes or tearing. EARS, NOSE AND THROAT (ENT): He is deaf. Denies epistaxis. CARDIOVASCULAR: Has diastolic congestive heart failure and peripheral vascular disease. PULMONARY: Reports sleep apnea and he is an ex-smoker. No current cough. GASTROINTESTINAL: Denies nausea or vomiting. GENITOURIARY: Denies dysuria or hematuria. MUSCULOSKELETAL: Reports pain in the right ankle and swelling in the legs. HEMATOLOGIC: Denies anticoagulant use. Denies anemia. SKIN: Reports chronic wounds of the lower extremities and has a history of melanoma. PSYCHIATRIC: Denies anxiety and depression. NEUROLGOCIAL: Denies history of seizure. Did have loss of consciousness, prompting him to come to the emergency room on his most recent hospitalization. The remainder of the review of systems is negative or as history of present illness (HPI). PHYSICAL EXAMINATION: VITAL SIGNS: Temperature 97.6, pulse 62, respiratory rate 18, blood pressure 118/68, saturating 95% on room air. INTAKE AND OUTPUT: Intake yesterday was 1.1 liters. Urine output yesterday was 650 mL. Weight in the bed scale today is 108.7 kg. GENERAL: Patient is seen sitting in the wheelchair. Nursing staff is present and is assisting with [place] Sign Language and patient also uses pen and paper to communicate. Makes eye contact. HEENT: Tongue is moist. Neck is supple. Jugular veins are somewhat difficult to assess, but look mildly elevated. HEART SOUNDS: Regular. S1, S2. There is chronic bilateral pitting edema with chronic venous stasis changes. LUNGS: Clear to auscultation. No crackle or rale. He is comfortable on room air. ABDOMEN: Obese, soft and nontender. NEUROLOGIC: Patient is awake, alert and communicative with sign language and in the written form. LABORATORY STUDIES: Sodium 141, potassium 4.3, bicarbonate 30, BUN 129, creatinine 1.5, up from 1.0 yesterday. Uric acid 6.7. Hemoglobin 12.1, platelets 417. IMAGING DATA: MRI of ankle is pending. INPATIENT MEDICATIONS: I note he was discontinued off lisinopril and Lasix. He is on: - Tylenol 1 gram by mouth three times a day - amlodipine 5 mg by mouth daily - aspirin 81 mg by mouth daily - atenolol 12.5 mg by mouth daily - Plavix 75 mg by mouth daily - Symbicort two puffs inhaled twice a day - docusate 100 mg by mouth twice a day - Lovenox 40 mg subcutaneous daily - gabapentin 100 mg by mouth three times a day - fish oil one capsule by mouth daily - oxycodone as needed - Protonix 40 mg daily - pravastatin 40 mg by mouth daily - Senna one tablet by mouth at bedtime Thus far on this admission, he has received lisinopril 20 mg once daily times two doses and it was stopped this morning. PROBLEMS: 1. Acute kidney injury superimposed on chronic kidney disease (CKD) stage II. Patient's baseline creatinine is around 1.1. His acute kidney injury is in the setting of recent re-initiation of angiotensin converting enzyme (TELLY) inhibitor therapy. He has received two doses of lisinopril and his creatinine promptly worsened after TELLY inhibitor was started. I would keep him off TELLY inhibitor or angiotensin receptor paul going forward. I expect his renal function will improve over the next couple of days. He will need to be resumed on a diuretic, but we will wait until his renal function improves. 2. Chronic diastolic congestive heart failure. Patient is mildly hypervolemic on exam. Diuretic has been held because of acute kidney injury. I would plan to resume loop diuretic as soon as his renal function shows improvement. 3. Hypertension. Blood pressures are well controlled. Please keep him off of TELLY or angiotensin receptor paul (ARB) going forward. Amlodipine can also worsen the peripheral edema. I will most likely stop amlodipine once patient is back on loop diuretic. He is also on atenolol and heart rate is noted to be 40s to 60s. 4. Peripheral arterial disease. Patient has chronic venous stasis changes and has a history of angioplasties. He is on statin along with aspirin, fish oil and Plavix. Peripheral edema is also noted at home. He takes Lasix 80 mg once daily. Diuretic is presently held in view of acute kidney injury, but will be resumed once his renal function shows improvement. 5. Pain in the right ankle. Patient is pending MRI of the ankle and orthopedic input. Thank you for involving me in the care of Mr. Montalvo.
[2021-06-23] MEDS: GABAPENTIN 100 MG CAP PO SCH ×2 (17:18→21:26)
[2021-06-23] MEDS: **NOTE PATIENT COMMENT** MISC XX SCH (18:39)
[2021-06-23] MEDS: MAGNESIUM SULFATE GRANULES(EPSOM SALT) 1LB TOP SCH (18:39)
[2021-06-23 20:00] VITALS: BP 117/56
[2021-06-23] MEDS: SENNA 8.6 MG TAB (SENOKOT) PO SCH (21:00)
[2021-06-23] MEDS: LATANOPROST 0.005% OPHTH SOLN 2.5 ML OU SCH (21:26)
[2021-06-24] MEDS: oxyCODONE 5MG TAB PO PRN ×5 (02:05→21:23)
[2021-06-24] MEDS: SYMBICORT 160/4.5MCG INHALER 6GM INH SCH ×3 (05:47→19:20)
[2021-06-24 06:00] VITALS: BP 136/60
[2021-06-24] MEDS: LIDOCAINE 5% (LIDODERM) PATCH TD SCH (06:11)
[2021-06-24 07:31] LABS: CALCIUM LEVEL 9.4 MG/DL (8.8-10.2); CREATININE FOR GFR 1.39 MG/DL (0.70-1.30); GLOMERULAR FILTRATION RATE 52.1 (>35); POTASSIUM SERUM 4.2 MEQ/L (3.5-5.1)
[2021-06-24] MEDS: COMBIVENT RESPIMAT 100-20MCG INHALER 4GM INH SCH ×3 (07:57→19:20)
[2021-06-24] MEDS: PANTOPRAZOLE 40MG TAB (PROTONIX) PO SCH (08:41)
[2021-06-24] MEDS: DOCUSATE SODIUM 100MG CAPSULE PO SCH ×2 (08:41→21:19)
[2021-06-24] MEDS: ENOXAPARIN 40MG/0.4ML SYRINGE (J1650 PER 10MG) SC SCH (08:41)
[2021-06-24] MEDS: ATENOLOL 12.5MG PER 1/2 TABLET PO SCH (08:41)
[2021-06-24] MEDS: ASPIRIN 81MG ENTERIC TABLET PO SCH (08:42)
[2021-06-24] MEDS: GABAPENTIN 100 MG CAP PO SCH ×3 (08:42→21:20)
[2021-06-24] MEDS: OMEGA-3 1000MG CAPSULE PO SCH (08:42)
[2021-06-24] MEDS: CLOPIDOGREL 75 MG TAB PO SCH (08:42)
[2021-06-24] MEDS: PRAVASTATIN 20 MG TAB PO SCH (08:42)
[2021-06-24] MEDS: TORSEMIDE 20 MG TAB PO SCH ×2 (08:42→17:04)
[2021-06-24] MEDS: ACETAMINOPHEN 500 MG TAB PO SCH ×3 (08:43→21:21)
[2021-06-24] MEDS: VANICREAM MOISTURIZING SKIN CREAM 113GM TUBE TOP SCH (08:43)
[2021-06-24] MEDS: REMEDY PHYTOPLEX Z-GUARD PASTE 113GM TUBE (FROM STOREROOM PRODUCT) TOP SCH ×3 (08:43→21:00)
[2021-06-24 14:00] VITALS: BP 161/72
[2021-06-24] MEDS: **NOTE PATIENT COMMENT** MISC XX SCH (17:00)
[2021-06-24] MEDS: MAGNESIUM SULFATE GRANULES(EPSOM SALT) 1LB TOP SCH (17:00)
[2021-06-24 20:00] VITALS: BP 123/58
[2021-06-24] MEDS: SENNA 8.6 MG TAB (SENOKOT) PO SCH (21:00)
--- NOTE | 2021-06-24 21:15 | IPN ---
NEPHROLOGY PROGRESS NOTE DATE: 06/24/2021 SUBJECTIVE: The patient was seen and examined this morning at the bedside. He had a deaf glass cutter helper present at the bedside. He denied any complaints. No shortness of breath. His main issue is just pain in the right leg and ankle. OBJECTIVE: VITAL SIGNS: Temperature 97.7, pulse 52, respiratory rate 17, blood pressure 161/72, saturating 95% on room air. INTAKE AND OUTPUT: Intake yesterday was 950. Urine output yesterday was 2.1 liters. Weight in the bed scale today is 107.8 kg. PHYSICAL EXAMINATION: GENERAL APPEARANCE: The patient is seen lying in bed, awake, alert, oriented and communicating with his glass cutter helper. HEENT: The extraocular muscles are intact. Tongue is moist. NECK: Supple. Jugular veins are not elevated. HEART: Mildly bradycardic and regular. His legs no longer show any pitting edema but there are chronic venous stasis changes. LUNGS: Clear to auscultation. No crackles or rales. ABDOMEN: Soft, obese and nontender. Neurologic: aao x 3, communicates via deaf glass cutter helper and writing psych - appropriate mood / affect LABORATORY STUDIES: Today's laboratory studies show sodium 141, potassium 4.2, bicarbonate 31, BUN 33, creatinine 1.3, hemoglobin 12.1. INPATIENT MEDICATIONS: I cut the dose of Torsemide down to 20 mg p.o. daily. I note his pain regimen was adjusted by the primary service. The remainder medications are unchanged as compared to yesterday. PROBLEMS: 1. Acute kidney injury superimposed on chronic kidney disease stage 2 the patient's baseline creatinine is around 1.1. His acute kidney injury was in the setting of recent use of Lisinopril and concurrent diuresis. I am cutting the diuretic down to Torsemide 20 mg once daily. He has had improved volume status over the past couple of days and his weights have also downtrended, and his leg edema has improved. 2. Chronic diastolic congestive heart failure - The patient was on Torsemide 20 mg p.o. twice daily. His weights have downtrended. His leg edema has improved. I am cutting the Torsemide down to once daily because his creatinine did bump up to 1.3. 3. Hypertension - blood pressures are well controlled. Please keep him off of lilia or ARB going forward. He is currently on Atenolol and a loop diuretic and blood pressures are at goal. MTDD
[2021-06-24] MEDS: LATANOPROST 0.005% OPHTH SOLN 2.5 ML OU SCH (21:24)
[2021-06-25] MEDS: oxyCODONE 5MG TAB PO PRN ×3 (01:37→14:26)
[2021-06-25] MEDS: LIDOCAINE 5% (LIDODERM) PATCH TD SCH (05:53)
[2021-06-25 06:14] VITALS: BP 129/61
[2021-06-25] MEDS: SYMBICORT 160/4.5MCG INHALER 6GM INH SCH ×2 (07:22→19:53)
[2021-06-25] MEDS: COMBIVENT RESPIMAT 100-20MCG INHALER 4GM INH SCH ×3 (07:22→19:53)
[2021-06-25] MEDS: ENOXAPARIN 40MG/0.4ML SYRINGE (J1650 PER 10MG) SC SCH (08:10)
[2021-06-25] MEDS: DOCUSATE SODIUM 100MG CAPSULE PO SCH ×2 (08:10→21:10)
[2021-06-25] MEDS: ATENOLOL 12.5MG PER 1/2 TABLET PO SCH (08:10)
[2021-06-25] MEDS: OMEGA-3 1000MG CAPSULE PO SCH (08:10)
[2021-06-25] MEDS: GABAPENTIN 100 MG CAP PO SCH ×3 (08:10→21:10)
[2021-06-25] MEDS: ASPIRIN 81MG ENTERIC TABLET PO SCH (08:10)
[2021-06-25] MEDS: PANTOPRAZOLE 40MG TAB (PROTONIX) PO SCH (08:11)
[2021-06-25] MEDS: CLOPIDOGREL 75 MG TAB PO SCH (08:11)
[2021-06-25] MEDS: PRAVASTATIN 20 MG TAB PO SCH (08:11)
[2021-06-25] MEDS: ACETAMINOPHEN 500 MG TAB PO SCH ×3 (08:11→21:10)
[2021-06-25] MEDS: REMEDY PHYTOPLEX Z-GUARD PASTE 113GM TUBE (FROM STOREROOM PRODUCT) TOP SCH ×3 (08:12→21:10)
[2021-06-25] MEDS: VANICREAM MOISTURIZING SKIN CREAM 113GM TUBE TOP SCH (08:12)
[2021-06-25 09:02] LABS: BASO # 0.1 10^3/uL (0.0-0.2); BASO % 1.9 % (0.0-1.0); EOS # 0.4 10^3/uL (0.0-0.5); HEMATOCRIT 41.2 % (42.0-52.0); HEMOGLOBIN 13.1 g/dl (13.5-17.5); LYMPH # 1.9 10^3/uL (1.5-5.0); MEAN CORPUSCULAR HEMOGLOBIN 29.8 pg (27.0-33.0); MEAN CORPUSCULAR HGB CONC 31.8 g/dl (32.0-36.5); MEAN CORPUSCULAR VOLUME 93.8 fl (80.0-96.0); MONO # 0.9 10^3/uL (0.0-0.8); MONO % 12.2 % (2.0-8.0); NEUTROPHILS # 3.7 10^3/uL (1.5-8.5); NEUTROPHILS % 52.6 % (36.0-66.0); PLATELET COUNT, AUTOMATED 464 10^3/uL (150-450); RED BLOOD COUNT 4.39 10^6/uL (4.30-6.10)
[2021-06-25 09:26] LABS: CREATININE FOR GFR 1.44 MG/DL (0.70-1.30); POTASSIUM SERUM 4.4 MEQ/L (3.5-5.1)
[2021-06-25 09:27] LABS: CALCIUM LEVEL 10.1 MG/DL (8.8-10.2)
[2021-06-25 09:55] LABS: C REACTIVE PROTEIN QUANTITATIV 2.21 MG/DL (0.00-0.30)
[2021-06-25 10:41] LABS: ERYTHROCYTE SEDIMENTATION RATE 74 mm/hr (0-20)
--- NOTE | 2021-06-25 13:56 | IPNPDOC ---
PM&R Progress Note DATE OF SERVICE: Jun 25, 2021 Foreclosure Clerk Progress Note Subjective: Patient seen in his room stating his ankle pain is improving and he was agreeable to wearing the aircast which was placed on his ankle and would like to try going up on the gabapentin started over the weekend. REVIEW OF SYSTEMS: The following is a completed review of systems and has been reviewed. Review of systems otherwise unremarkable. PAIN: right ankle pain EYES: No recent vision changes EARS, NOSE, & THROAT: +deaf CARDIOVASCULAR: Denies chest pain or palpitations PULMONARY: Denies shortness of breath GASTROINTESTINAL: Denies constipation/diarrhea GENITOURINARY: no dysuria MUSCULOSKELETAL:+generalized weakness, right fibular fracture NEUROLOGICAL: denies paresthesias HEMATOLOGICAL: denies easy bruising SKIN: LE wounds PSYCHIATRIC: Unremarkable All other review of systems found to be negative. PHYSICAL EXAMINATION: VITAL SIGNS: Please see below. GENERAL: Pleasant and cooperative. No acute distress. HEENT: PERRL. Extraocular movements intact. Clear conjunctiva CARDIOVASCULAR: Regular rate and rhythm. No murmurs, rubs, or gallops LUNGS: Clear to auscultation bilaterally. No wheezes. No rhonchi ABDOMEN: Soft, nontender, nondistended. Positive bowel sounds. Normal active bowel sounds NEUROLOGICAL: Cranial nerves II through XII grossly intact. Sensation grossly intact able to follow commands and answer questions appropriately (using pad and pen) EXTREMITIES: 5\5 strength bilateral upper extremities. 5\5 strength right lower extremity. 5/5 strength in left lower extremity. +bilat LE edema right ankle TTP lateral malleoli, no instability, edematous throughout foot/ankle/calf, no warmth to touch (swelling improved) SKIN: bilat LE venous stasis changes, left foot not examined today ASSESSMENT:81-year-old M with past medical history of PAD, CHF who presents status post weakness in setting of sepsis due to LE cellulitis PLAN: 1. Rehab- PT/OT- advance mobility and ADLs, strengthen/stretch/maintain ROM all 4 limbs 2. Cardiac- diastolic CHF with recent exacerbation, fluid restrict, daily w eights, lasix (d/c'd for now due to CHERI pending renal eval) -HTN cont BP meds -PAD- cont ASA and Plavix -HLD- statin -medicine consulted to assist in management 3. Resp- monitor for infection, former smoker with restrictive lung disease- cont combivent and symbicort 4. GI ppx- Protonix 5. DVT ppx- lovenox 6. ID- s/p course of antibiotics for LE cellulitis, monitor -low suspicion for septic joint as CRP only mildly elevated and no leukocytosis, swelling improved on today's exam 7. Pain- Tylenol and oxycodone -right ankle pain- MRI on 06-22-21 confirmed non-displaced distal fibular fracture with ankle sprain, discussed case with Dr. Matta who recommends NWB for at least 6 weeks, and to consider using Aircast for support/compression, CAM boot not advised due to LE venous stasis and susceptibility to wounds -f/u ortho outpatient 8. Skin- LE wounds please see dressing changes 9. Renal- Patient with CHERI and significant LE edema, which ahs imprved since renal started torsemide over he weekend, recs and intervention appreciated 10. Endo- patient on ISS, finger sticks all low, recent A1C 5.9%, patient does not appear to be diabetic at this time, will c/u to monitor FS and may d/c while here 11. Dispo- TBD Allergies Coded Allergies: No Known Allergies (Verified , 03/25/18) Vital Signs Vital Signs Date Time Temp Pulse Resp B/P (MAP) Pulse Ox O2 Delivery O2 Flow Rate FiO2 06/25/21 08:10 53 129/61 06/25/21 06:25 18 Room Air 06/25/21 06:14 97.2 97 Laboratory Data CBC/BMP Laboratory Tests 06/25/21 08:40 Labs 24H Laboratory Tests 2 06/24/21 16:43: Bedside Glucose (Misc Panel) 107 06/25/21 05:12: Bedside Glucose (Misc Panel) 113H 06/25/21 08:40: Immature Granulocyte % (Auto) 0.3, Neutrophils (%) (Auto) 52.6, Lymphocytes (%) (Auto) 27.0, Monocytes (%) (Auto) 12.2H, Eosinophils (%) (Auto) 6.0H, Basophils (%) (Auto) 1.9H, Neutrophils # (Auto) 3.7, Lymphocytes # (Auto) 1.9, Monocytes # (Auto) 0.9H, Eosinophils # (Auto) 0.4, Basophils # (Auto) 0.1, Nucleated Red Blood Cells % (auto) 0.0, Erythrocyte Sedimentation Rate 74H, Anion Gap 6L, Glomerular Filtration Rate 50.0, Calcium Level 10.1, C-Reactive Protein, Quantitative 2.21H Current Medications Current Medications Current Medications Medications (Trade) Dose Ordered Sig/Geovany Route PRN Reason Start Time Stop Time Status Last Admin Dose Admin Acetaminophen (Tylenol Tab) 1,000 mg TID PO 06/19/21 21:00 06/25/21 08:11 Albuterol/ Ipratropium (Combivent Respimat 100-20mcg) 1 puff RTID INH 06/19/21 20:00 06/25/21 12:55 Amlodipine Besylate (Norvasc) 5 mg DAILY PO 06/23/21 09:00 06/23/21 11:57 DC 06/23/21 08:48 Aspirin (Ecotrin) 81 mg DAILY PO 06/20/21 09:00 06/25/21 08:10 Atenolol (Tenormin) 12.5 mg DAILY PO 06/21/21 09:00 06/25/21 08:10 Atenolol (Tenormin) 25 mg DAILY PO 06/20/21 09:00 06/20/21 17:09 DC 06/20/21 09:47 Bisacodyl (Dulcolax Suppository) 10 mg DAILYPRN PRN MI CONSTIPATION 06/19/21 15:25 Budesonide/ Formoterol Fumarate (Symbicort 160/ 4.5mcg) 2 puff RBID INH 06/19/21 20:00 06/25/21 07:22 Clopidogrel Bisulfate (PLAVix) 75 mg DAILY PO 06/20/21 09:00 06/25/21 08:11 Dextrose (Dextrose 50%) 25 ml ASDIRECTED PRN IV SEE LABEL COMMENTS 06/20/21 17:10 Docusate Sodium (Colace) 100 mg BID PO 06/19/21 21:00 06/25/21 08:10 Emollient Cream (Vanicream) daily per wound care instructions DAILY TOP 06/21/21 09:00 06/25/21 08:12 Enoxaparin Sodium (Lovenox) 40 mg DAILY SC 06/20/21 09:00 06/25/21 08:10 Fish Oil ([place]-3 (1000mg)) 1 cap DAILY PO 06/20/21 09:00 06/25/21 08:10 Furosemide (Lasix) 20 mg BID@09,17 PO 06/21/21 13:30 06/21/21 13:59 DC Furosemide (Lasix) 40 mg DAILY PO 06/20/21 09:00 06/22/21 09:28 DC 06/22/21 08:33 Gabapentin (Neurontin) 100 mg TID PO 06/23/21 16:00 06/25/21 13:19 DC 06/25/21 08:10 Gabapentin (Neurontin) 200 mg TID PO 06/25/21 16:00 Glucagon (Glucagon) 1 mg ASDIRECTED PRN SC SEE LABEL COMMENTS 06/20/21 17:10 Glucose (Glucose) 16 GM ASDIRECTED PRN PO SEE LABEL COMMENTS 06/20/21 17:10 Insulin Human Lispro (HumaLOG INSULIN) SEE PROTOCOL TABLE AC SC 06/20/21 17:30 06/22/21 11:37 DC 06/22/21 08:31 Insulin Human Lispro (HumaLOG INSULIN) SEE PROTOCOL TABLE QHS SC 06/20/21 21:00 06/22/21 11:37 DC Latanoprost (Xalatan 0.005% Op Soln) 1 drop QHS OU 06/19/21 21:00 06/24/21 21:24 Lidocaine (Lidoderm Patch) 1 patch DAILY@0700 TD 06/21/21 07:00 06/25/21 05:53 Lisinopril (Prinivil) 20 mg DAILY PO 06/21/21 09:00 06/22/21 09:27 DC 06/22/21 08:34 Magnesium Sulfate (Epsom Salt) daily at 5pm soak bilate... DAILY@1700 TOP 06/20/21 17:00 06/23/21 18:39 Non-Formulary Medication ( See Comment Field Below ) REMOVE LIDODERM PATCH DAILY@1700 XX 06/21/21 17:00 06/24/21 17:00 Oxycodone HCl (Roxicodone, Oxyir) 5 mg Q4HP PRN PO MODERATE PAIN (PS 5-7) 06/19/21 15:25 06/23/21 12:22 DC 06/23/21 08:45 Oxycodone HCl (Roxicodone, Oxyir) 7.5 mg Q4HP PRN PO PAIN LEVEL 6-10 06/23/21 12:25 06/25/21 05:52 Pantoprazole Sodium (Protonix) 40 mg DAILY PO 06/20/21 09:00 06/25/21 08:11 Pravastatin Sodium (Pravachol) 40 mg DAILY PO 06/20/21 09:00 06/25/21 08:11 Pravastatin Sodium (Pravachol) 40 mg QHS PO 06/19/21 21:00 06/19/21 16:56 DC Senna (Senokot) 1 tab QHS PO 06/19/21 21:00 06/21/21 20:52 Torsemide (Demadex) 20 mg BID@ PO 06/23/21 09:00 06/24/21 20:44 DC 06/24/21 17:04 Torsemide (Demadex) 20 mg DAILY PO 06/26/21 09:00 AMADOR LANDIN MD Jun 25, 2021 13:56
[2021-06-25 14:00] VITALS: BP 133/60
[2021-06-25] MEDS: **NOTE PATIENT COMMENT** MISC XX SCH (15:55)
[2021-06-25 20:00] VITALS: BP 146/66
[2021-06-25] MEDS: MAGNESIUM SULFATE GRANULES(EPSOM SALT) 1LB TOP SCH (20:04)
[2021-06-25] MEDS: SENNA 8.6 MG TAB (SENOKOT) PO SCH (21:10)
[2021-06-25] MEDS: LATANOPROST 0.005% OPHTH SOLN 2.5 ML OU SCH (21:11)
[2021-06-26] MEDS: oxyCODONE 5MG TAB PO PRN (00:44)
[2021-06-26 06:00] VITALS: BP 161/72
[2021-06-26] MEDS: LIDOCAINE 5% (LIDODERM) PATCH TD SCH (06:05)
[2021-06-26] MEDS: SYMBICORT 160/4.5MCG INHALER 6GM INH SCH ×2 (07:07→21:43)
[2021-06-26] MEDS: COMBIVENT RESPIMAT 100-20MCG INHALER 4GM INH SCH ×3 (07:07→21:43)
[2021-06-26 07:34] LABS: BLOOD UREA NITROGEN 27 MG/DL (7-18); CALCIUM LEVEL 9.6 MG/DL (8.8-10.2); CARBON DIOXIDE LEVEL 33 MEQ/L (21-32); CHLORIDE LEVEL 105 MEQ/L (98-107); CREATININE FOR GFR 0.98 MG/DL (0.70-1.30); GLOMERULAR FILTRATION RATE > 60.0 (>35); GLUCOSE, FASTING 105 MG/DL (70-100); PHOSPHORUS LEVEL 3.7 MG/DL (2.5-4.9); POTASSIUM SERUM 4.5 MEQ/L (3.5-5.1); SODIUM LEVEL 141 MEQ/L (136-145)
[2021-06-26] MEDS ORDERED: HOME MED LIST COMPLETE! XX SCH (07:35)
[2021-06-26] MEDS: DOCUSATE SODIUM 100MG CAPSULE PO SCH ×2 (08:54→22:54)
[2021-06-26] MEDS: ASPIRIN 81MG ENTERIC TABLET PO SCH (08:55)
[2021-06-26] MEDS: PANTOPRAZOLE 40MG TAB (PROTONIX) PO SCH (08:55)
[2021-06-26] MEDS: PRAVASTATIN 20 MG TAB PO SCH (08:55)
[2021-06-26] MEDS: CLOPIDOGREL 75 MG TAB PO SCH (08:55)
[2021-06-26] MEDS: OMEGA-3 1000MG CAPSULE PO SCH (08:55)
[2021-06-26] MEDS: GABAPENTIN 100 MG CAP PO SCH ×3 (08:55→22:53)
[2021-06-26] MEDS: ATENOLOL 12.5MG PER 1/2 TABLET PO SCH (08:56)
[2021-06-26] MEDS: ENOXAPARIN 40MG/0.4ML SYRINGE (J1650 PER 10MG) SC SCH (08:57)
[2021-06-26] MEDS: ACETAMINOPHEN 500 MG TAB PO SCH ×3 (08:57→22:53)
[2021-06-26] MEDS: REMEDY PHYTOPLEX Z-GUARD PASTE 113GM TUBE (FROM STOREROOM PRODUCT) TOP SCH ×3 (08:58→22:54)
[2021-06-26] MEDS ORDERED: TORSEMIDE 20 MG TAB PO SCH (09:00)
--- NOTE | 2021-06-26 09:26 | IPNPDOC ---
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 REVIEW OF SYSTEMS: The following is a completed review of systems and has been reviewed. Review of systems otherwise unremarkable. PAIN: right ankle pain EYES: No recent vision changes EARS, NOSE, & THROAT: +deaf CARDIOVASCULAR: Denies chest pain or palpitations PULMONARY: Denies shortness of breath GASTROINTESTINAL: Denies constipation/diarrhea GENITOURINARY: no dysuria MUSCULOSKELETAL:+generalized weakness, right fibular fracture NEUROLOGICAL: denies paresthesias HEMATOLOGICAL: denies easy bruising SKIN: LE wounds PSYCHIATRIC: Unremarkable All other review of systems found to be negative. PHYSICAL EXAMINATION: VITAL SIGNS: Please see below. GENERAL: Pleasant and cooperative. No acute distress. HEENT: PERRL. Extraocular movements intact. Clear conjunctiva CARDIOVASCULAR: Regular rate and rhythm. No murmurs, rubs, or gallops LUNGS: Clear to auscultation bilaterally. No wheezes. No rhonchi ABDOMEN: Soft, nontender, nondistended. Positive bowel sounds. Normal active bowel sounds NEUROLOGICAL: Cranial nerves II through XII grossly intact. Sensation grossly intact able to follow commands and answer questions appropriately (using pad and pen) EXTREMITIES: 5\5 strength bilateral upper extremities. 5\5 strength right lower extremity. 5/5 strength in left lower extremity. +bilat LE edema right ankle TTP lateral malleoli, no instability, edematous throughout foot/ankle/calf, no warmth to touch (swelling improved) SKIN: bilat LE venous stasis changes, left foot not examined today ASSESSMENT:81-year-old M with past medical history of PAD, CHF who presents status post weakness in setting of sepsis due to LE cellulitis PLAN: 1. Rehab- PT/OT- advance mobility and ADLs, strengthen/stretch/maintain ROM all 4 limbs 2. Cardiac- diastolic CHF with recent exacerbation, fluid restrict, daily weights, lasix (d/c'd for now due to CHERI pending renal eval) -HTN cont BP meds -PAD- cont ASA and Plavix -HLD- statin -medicine consulted to assist in management 3. Resp- monitor for infection, former smoker with restrictive lung disease- cont combivent and symbicort 4. GI ppx- Protonix 5. DVT ppx- lovenox 6. ID- s/p course of antibiotics for LE cellulitis, monitor -low suspicion for septic joint as CRP only mildly elevated and no leukocytosis, swelling improved on today's exam 7. Pain- Tylenol and oxycodone -right ankle pain- MRI on 06-22-21 confirmed non-displaced distal fibular fracture with ankle sprain, discussed case with Dr. Matta who recommends NWB for at least 6 weeks, and to consider using Aircast for support/compression, CAM boot not advised due to LE venous stasis and susceptibility to wounds -f/u ortho outpatient 8. Skin- LE wounds please see dressing changes 9. Renal- Patient with CHERI and significant LE edema, which has improved since renal recs and intervention- appreciated 10. Endo- patient on ISS, finger sticks all low, recent A1C 5.9%, patient does not appear to be diabetic at this time, will c/u to monitor FS and may d/c while here 11. Dispo- TBD Allergies Coded Allergies: No Known Allergies (Verified , 03/25/18) Vital Signs Vital Signs Date Time Temp Pulse Resp B/P (MAP) Pulse Ox O2 Delivery O2 Flow Rate FiO2 06/26/21 08:56 68 150/70 06/26/21 06:00 97.0 20 97 Room Air Laboratory Data CBC/BMP Laboratory Tests 06/26/21 07:02 Labs 24H Laboratory Tests 2 06/25/21 16:27: Bedside Glucose (Misc Panel) 95 06/26/21 05:33: Bedside Glucose (Misc Panel) 100 06/26/21 07:02: Anion Gap 3L, Glomerular Filtration Rate > 60.0, Calcium Level 9.6, Phosphorus Level 3.7, Albumin 3.0L Current Medications Current Medications Current Medications Medications (Trade) Dose Ordered Sig/Geovany Route PRN Reason Start Time Stop Time Status Last Admin Dose Admin Acetaminophen (Tylenol Tab) 1,000 mg TID PO 06/19/21 21:00 06/26/21 08:57 Albuterol/ Ipratropium (Combivent Respimat 100-20mcg) 1 puff RTID INH 06/19/21 20:00 06/25/21 19:53 Amlodipine Besylate (Norvasc) 5 mg DAILY PO 06/23/21 09:00 06/23/21 11:57 DC 06/23/21 08:48 Aspirin (Ecotrin) 81 mg DAILY PO 06/20/21 09:00 06/26/21 08:55 Atenolol (Tenormin) 12.5 mg DAILY PO 06/21/21 09:00 06/26/21 08:56 Atenolol (Tenormin) 25 mg DAILY PO 06/20/21 09:00 06/20/21 17:09 DC 06/20/21 09:47 Bisacodyl (Dulcolax Suppository) 10 mg DAILYPRN PRN ME CONSTIPATION 06/19/21 15:25 Budesonide/ Formoterol Fumarate (Symbicort 160/ 4.5mcg) 2 puff RBID INH 06/19/21 20:00 06/26/21 07:07 Clopidogrel Bisulfate (PLAVix) 75 mg DAILY PO 06/20/21 09:00 06/26/21 08:55 Dextrose (Dextrose 50%) 25 ml ASDIRECTED PRN IV SEE LABEL COMMENTS 06/20/21 17:10 Docusate Sodium (Colace) 100 mg BID PO 06/19/21 21:00 06/26/21 08:54 Emollient Cream (Vanicream) daily per wound care instructions DAILY TOP 06/21/21 09:00 06/26/21 09:10 DC 06/25/21 08:12 Emollient Cream (Vanicream) daily per wound care instructions DAILY@1700 TOP 06/26/21 17:00 Enoxaparin Sodium (Lovenox) 40 mg DAILY SC 06/20/21 09:00 06/26/21 08:57 Fish Oil ([place]-3 (1000mg)) 1 cap DAILY PO 06/20/21 09:00 06/26/21 08:55 Furosemide (Lasix) 20 mg BID@09,17 PO 06/21/21 13:30 06/21/21 13:59 DC Furosemide (Lasix) 40 mg DAILY PO 06/20/21 09:00 06/22/21 09:28 DC 06/22/21 08:33 Gabapentin (Neurontin) 100 mg TID PO 06/23/21 16:00 06/25/21 13:19 DC 06/25/21 08:10 Gabapentin (Neurontin) 200 mg TID PO 06/25/21 16:00 06/26/21 08:55 Glucagon (Glucagon) 1 mg ASDIRECTED PRN SC SEE LABEL COMMENTS 06/20/21 17:10 Glucose (Glucose) 16 GM ASDIRECTED PRN PO SEE LABEL COMMENTS 06/20/21 17:10 Home Med (Home Med List Complete!) ASDIRECTED XX 06/26/21 07:35 06/26/21 07:38 DC Insulin Human Lispro (HumaLOG INSULIN) SEE PROTOCOL TABLE AC SC 06/20/21 17:30 06/22/21 11:37 DC 06/22/21 08:31 Insulin Human Lispro (HumaLOG INSULIN) SEE PROTOCOL TABLE QHS SC 06/20/21 21:00 06/22/21 11:37 DC Latanoprost (Xalatan 0.005% Op Soln) 1 drop QHS OU 06/19/21 21:00 06/25/21 21:11 Lidocaine (Lidoderm Patch) 1 patch DAILY@0700 TD 06/21/21 07:00 06/26/21 06:05 Lisinopril (Prinivil) 20 mg DAILY PO 06/21/21 09:00 06/22/21 09:27 DC 06/22/21 08:34 Magnesium Sulfate (Epsom Salt) daily at 5pm soak bilate... DAILY@1700 TOP 06/20/21 17:00 06/25/21 20:04 Non-Formulary Medication ( See Comment Field Below ) REMOVE LIDODERM PATCH DAILY@1700 XX 06/21/21 17:00 06/25/21 15:55 Oxycodone HCl (Roxicodone, Oxyir) 5 mg Q4HP PRN PO MODERATE PAIN (PS 5-7) 06/19/21 15:25 06/23/21 12:22 DC 06/23/21 08:45 Oxycodone HCl (Roxicodone, Oxyir) 7.5 mg Q4HP PRN PO PAIN LEVEL 6-10 06/23/21 12:25 06/26/21 00:44 Pantoprazole Sodium (Protonix) 40 mg DAILY PO 06/20/21 09:00 06/26/21 08:55 Pravastatin Sodium (Pravachol) 40 mg DAILY PO 06/20/21 09:00 06/26/21 08:55 Pravastatin Sodium (Pravachol) 40 mg QHS PO 06/19/21 21:00 06/19/21 16:56 DC Senna (Senokot) 1 tab QHS PO 06/19/21 21:00 06/25/21 21:10 Torsemide (Demadex) 20 mg BID@,17 PO 06/23/21 09:00 06/24/21 20:44 DC 06/24/21 17:04 Torsemide (Demadex) 20 mg DAILY PO 06/26/21 09:00 06/25/21 18:22 AMADOR CARLISLE MD Jun 26, 2021 09:26
[2021-06-26 14:00] VITALS: BP 144/62
[2021-06-26] MEDS: MAGNESIUM SULFATE GRANULES(EPSOM SALT) 1LB TOP SCH (17:51)
[2021-06-26] MEDS: **NOTE PATIENT COMMENT** MISC XX SCH (17:52)
[2021-06-26] MEDS: VANICREAM MOISTURIZING SKIN CREAM 113GM TUBE TOP SCH (17:52)
--- NOTE | 2021-06-26 20:56 | IPN ---
PROGRESS NOTE DATE: 06/26/2021 SUBJECTIVE: Mr. Montalvo is seen this morning on his bedside. He does not have radiology interventional physician today and we have been writing to communicate with him. He is sitting in the chair and nursing staff is present in the room. Patient has no new issues and his right ankle pain is better today. There is no dyspnea, chest pain or leg edema. PHYSICAL EXAMINATION: VITAL SIGNS: Temperature 97 degrees Fahrenheit, heart rate 68 per minute, respiratory rate 20 per minute, blood pressure 150/70 mmHg, oxygen saturation 98% on room air. HEENT: Head is atraumatic. Neck supple and JVD not elevated sitting upright. HEART: Regular. LUNGS: Clear to auscultation. ABDOMEN: Soft and nontender and bowel sounds are normal. EXTREMITIES: Without any cyanosis or clubbing. Dressings on his legs are present. NEUROLOGICAL: He has no focal deficits. He is unable to talk and is able to communicate by writing or with sign language. LABORATORY STUDIES: Today's labs show BUN down to 27 and creatinine 0.98, sodium 141 and potassium 4.5. PROBLEMS: 1. Acute kidney injury: Kidney function has improved after stopping his diuretic. His electrolytes are stable. 2. Congestive heart failure: Volume status is well compensated so far. His diuretic was held due to acute kidney injury. I am going to start him on Torsemide 10 mg daily from tomorrow, June 27. 3. Deconditioning and weakness: Patient is participating in acute rehab.
[2021-06-26 22:00] VITALS: BP 156/69
[2021-06-26] MEDS: SENNA 8.6 MG TAB (SENOKOT) PO SCH (22:54)
[2021-06-26] MEDS: LATANOPROST 0.005% OPHTH SOLN 2.5 ML OU SCH (22:55)
[2021-06-27 06:00] VITALS: BP 133/86
[2021-06-27] MEDS: LIDOCAINE 5% (LIDODERM) PATCH TD SCH ×2 (06:34→12:54)
[2021-06-27] MEDS: SYMBICORT 160/4.5MCG INHALER 6GM INH SCH ×2 (06:57→19:34)
[2021-06-27] MEDS: COMBIVENT RESPIMAT 100-20MCG INHALER 4GM INH SCH ×3 (06:57→19:34)
[2021-06-27 08:02] LABS: BASO # 0.1 10^3/uL (0.0-0.2); BASO % 1.4 % (0.0-1.0); EOS # 0.3 10^3/uL (0.0-0.5); EOS % 6.6 % (0.0-3.0); HEMATOCRIT 37.8 % (42.0-52.0); HEMOGLOBIN 11.9 g/dl (13.5-17.5); LYMPH # 1.3 10^3/uL (1.5-5.0); LYMPH % 25.8 % (24.0-44.0); MEAN CORPUSCULAR HEMOGLOBIN 29.7 pg (27.0-33.0); MEAN CORPUSCULAR HGB CONC 31.5 g/dl (32.0-36.5); MEAN CORPUSCULAR VOLUME 94.3 fl (80.0-96.0); MONO # 0.7 10^3/uL (0.0-0.8); NEUTROPHILS # 2.5 10^3/uL (1.5-8.5); PLATELET COUNT, AUTOMATED 380 10^3/uL (150-450); RED BLOOD COUNT 4.01 10^6/uL (4.30-6.10); WHITE BLOOD COUNT 4.8 10^3/uL (4.0-10.0)
[2021-06-27 08:04] LABS: BLOOD UREA NITROGEN 21 MG/DL (7-18); CALCIUM LEVEL 9.7 MG/DL (8.8-10.2); CARBON DIOXIDE LEVEL 29 MEQ/L (21-32); CHLORIDE LEVEL 107 MEQ/L (98-107); CREATININE FOR GFR 0.89 MG/DL (0.70-1.30); GLOMERULAR FILTRATION RATE > 60.0 (>35); GLUCOSE, FASTING 100 MG/DL (70-100); POTASSIUM SERUM 4.4 MEQ/L (3.5-5.1); SODIUM LEVEL 143 MEQ/L (136-145)
[2021-06-27] MEDS ORDERED: LIDOCAINE 5% (LIDODERM) PATCH TD SCH (09:00)
--- NOTE | 2021-06-27 09:28 | IPNPDOC ---
PM&R Progress Note DATE OF SERVICE: Jun 27, 2021 Database Manager Progress Note Subjective: PAtient reporting he is feeling well but has been having right sided back pain and would like to try a patch. REVIEW OF SYSTEMS: The following is a completed review of systems and has been reviewed. Review of systems otherwise unremarkable. PAIN: right ankle pain, right mid-back pain EYES: No recent vision changes EARS, NOSE, & THROAT: +deaf CARDIOVASCULAR: Denies chest pain or palpitations PULMONARY: Denies shortness of breath GASTROINTESTINAL: Denies constipation/diarrhea GENITOURINARY: no dysuria MUSCULOSKELETAL:+generalized weakness, right fibular fracture NEUROLOGICAL: denies paresthesias HEMATOLOGICAL: denies easy bruising SKIN: LE wounds PSYCHIATRIC: Unremarkable All other review of systems found to be negative. PHYSICAL EXAMINATION: VITAL SIGNS: Please see below. GENERAL: Pleasant and cooperative. No acute distress. HEENT: PERRL. Extraocular movements intact. Clear conjunctiva CARDIOVASCULAR: Regular rate and rhythm. No murmurs, rubs, or gallops LUNGS: Clear to auscultation bilaterally. No wheezes. No rhonchi ABDOMEN: Soft, nontender, nondistended. Positive bowel sounds. Normal active bowel sounds NEUROLOGICAL: Cranial nerves II through XII grossly intact. Sensation grossly intact able to follow commands and answer questions appropriately (using pad and pen) EXTREMITIES: 5\5 strength bilateral upper extremities. 5\5 strength right lower extremity. 5/5 strength in left lower extremity. +bilat LE edema right ankle TTP lateral malleoli, no instability, edematous throughout foot/ankle/calf, no warmth to touch (swelling improved) SKIN: bilat LE venous stasis changes, left foot not examined today ASSESSMENT:81-year-old M with past medical history of PAD, CHF who presents status post weakness in setting of sepsis due to LE cellulitis PLAN: 1. Rehab- PT/OT- advance mobility and ADLs, strengthen/stretch/maintain ROM all 4 limbs 2. Cardiac- diastolic CHF with recent exacerbation, fluid restrict, daily weights, lasix (d/c'd for now due to CHERI pending renal eval) -HTN cont BP meds -PAD- cont ASA and Plavix -HLD- statin -medicine consulted to assist in management 3. Resp- monitor for infection, former smoker with restrictive lung disease- cont combivent and symbicort 4. GI ppx- Protonix 5. DVT ppx- lovenox 6. ID- s/p course of antibiotics for LE cellulitis, monitor -low suspicion for septic joint as CRP only mildly elevated and no leukocytosis, swelling improved on today's exam 7. Pain- Tylenol and oxycodone -right ankle pain- MRI on 06-22-21 confirmed non-displaced distal fibular fracture with ankle sprain, discussed case with Dr. Matta who recommends NWB for at least 6 weeks, and to consider using Aircast for support/compression, CAM boot not advised due to LE venous stasis and susceptibility to wounds -f/u ortho outpatient -right sided mid-back pain likely muscle strain, will trial lidoderm patch 8. Skin- LE wounds please see dressing changes 9. Renal- Patient with CHERI and significant LE edema, which has improved since renal recs and intervention- appreciated 10. Endo- patient on ISS, finger sticks all low, recent A1C 5.9%, patient does not appear to be diabetic at this time, will c/u to monitor FS and may d/c while here 11. Dispo- TBD Allergies Coded Allergies: No Known Allergies (Verified , 03/25/18) Vital Signs Vital Signs Date Time Temp Pulse Resp B/P (MAP) Pulse Ox O2 Delivery O2 Flow Rate FiO2 06/27/21 06:00 97.1 55 18 133/86 (102) 97 Room Air Laboratory Data CBC/BMP Laboratory Tests 06/27/21 07:05 Labs 24H Laboratory Tests 2 06/26/21 16:53: Bedside Glucose (Misc Panel) 104 06/27/21 05:07: Bedside Glucose (Misc Panel) 112H 06/27/21 07:05: Immature Granulocyte % (Auto) 0.2, Neutrophils (%) (Auto) 52.0, Lymphocytes (%) (Auto) 25.8, Monocytes (%) (Auto) 14.0H, Eosinophils (%) (Auto) 6.6H, Basophils (%) (Auto) 1.4H, Neutrophils # (Auto) 2.5, Lymphocytes # (Auto) 1.3L, Monocytes # (Auto) 0.7, Eosinophils # (Auto) 0.3, Basophils # (Auto) 0.1, Nucleated Red Blood Cells % (auto) 0.0, Anion Gap 7L, Glomerular Filtration Rate > 60.0, Calcium Level 9.7 Current Medications Current Medications Current Medications Medications (Trade) Dose Ordered Sig/Geovany Route PRN Reason Start Time Stop Time Status Last Admin Dose Admin Acetaminophen (Tylenol Tab) 1,000 mg TID PO 06/19/21 21:00 06/26/21 22:53 Albuterol/ Ipratropium (Combivent Respimat 100-20mcg) 1 puff RTID INH 06/19/21 20:00 06/26/21 12:53 Amlodipine Besylate (Norvasc) 5 mg DAILY PO 06/23/21 09:00 06/23/21 11:57 DC 06/23/21 08:48 Aspirin (Ecotrin) 81 mg DAILY PO 06/20/21 09:00 06/26/21 08:55 Atenolol (Tenormin) 12.5 mg DAILY PO 06/21/21 09:00 06/26/21 08:56 Atenolol (Tenormin) 25 mg DAILY PO 06/20/21 09:00 06/20/21 17:09 DC 06/20/21 09:47 Bisacodyl (Dulcolax Suppository) 10 mg DAILYPRN PRN LA CONSTIPATION 06/19/21 15:25 Budesonide/ Formoterol Fumarate (Symbicort 160/ 4.5mcg) 2 puff RBID INH 06/19/21 20:00 06/27/21 06:57 Clopidogrel Bisulfate (PLAVix) 75 mg DAILY PO 06/20/21 09:00 06/26/21 08:55 Dextrose (Dextrose 50%) 25 ml ASDIRECTED PRN IV SEE LABEL COMMENTS 06/20/21 17:10 Docusate Sodium (Colace) 100 mg BID PO 06/19/21 21:00 06/26/21 08:54 Emollient Cream (Vanicream) daily per wound care instructions DAILY TOP 06/21/21 09:00 06/26/21 09:10 DC 06/25/21 08:12 Emollient Cream (Vanicream) daily per wound care instructions DAILY@1700 TOP 06/26/21 17:00 06/26/21 17:52 Enoxaparin Sodium (Lovenox) 40 mg DAILY SC 06/20/21 09:00 06/26/21 08:57 Fish Oil ([place]-3 (1000mg)) 1 cap DAILY PO 06/20/21 09:00 06/26/21 08:55 Furosemide (Lasix) 20 mg BID@09,17 PO 06/21/21 13:30 06/21/21 13:59 DC Furosemide (Lasix) 40 mg DAILY PO 06/20/21 09:00 06/22/21 09:28 DC 06/22/21 08:33 Gabapentin (Neurontin) 100 mg TID PO 06/23/21 16:00 06/25/21 13:19 DC 06/25/21 08:10 Gabapentin (Neurontin) 200 mg TID PO 06/25/21 16:00 06/26/21 22:53 Glucagon (Glucagon) 1 mg ASDIRECTED PRN SC SEE LABEL COMMENTS 06/20/21 17:10 Glucose (Glucose) 16 GM ASDIRECTED PRN PO SEE LABEL COMMENTS 06/20/21 17:10 Home Med (Home Med List Complete!) ASDIRECTED XX 06/26/21 07:35 06/26/21 07:38 DC Insulin Human Lispro (HumaLOG INSULIN) SEE PROTOCOL TABLE AC SC 06/20/21 17:30 06/22/21 11:37 DC 06/22/21 08:31 Insulin Human Lispro (HumaLOG INSULIN) SEE PROTOCOL TABLE QHS SC 06/20/21 21:00 06/22/21 11:37 DC Latanoprost (Xalatan 0.005% Op Soln) 1 drop QHS OU 06/19/21 21:00 06/26/21 22:55 Lidocaine (Lidoderm Patch) 1 patch DAILY@0700 TD 06/21/21 07:00 06/27/21 06:34 Lisinopril (Prinivil) 20 mg DAILY PO 06/21/21 09:00 06/22/21 09:27 DC 06/22/21 08:34 Magnesium Sulfate (Epsom Salt) daily at 5pm soak bilate... DAILY@1700 TOP 06/20/21 17:00 06/26/21 17:51 Non-Formulary Medication ( See Comment Field Below ) REMOVE LIDODERM PATCH DAILY@1700 XX 06/21/21 17:00 06/26/21 17:52 Oxycodone HCl (Roxicodone, Oxyir) 5 mg Q4HP PRN PO MODERATE PAIN (PS 5-7) 06/19/21 15:25 06/23/21 12:22 DC 06/23/21 08:45 Oxycodone HCl (Roxicodone, Oxyir) 7.5 mg Q4HP PRN PO PAIN LEVEL 6-10 06/23/21 12:25 06/26/21 00:44 Pantoprazole Sodium (Protonix) 40 mg DAILY PO 06/20/21 09:00 06/26/21 08:55 Pravastatin Sodium (Pravachol) 40 mg DAILY PO 06/20/21 09:00 06/26/21 08:55 Pravastatin Sodium (Pravachol) 40 mg QHS PO 06/19/21 21:00 06/19/21 16:56 DC Senna (Senokot) 1 tab QHS PO 06/19/21 21:00 06/25/21 21:10 Torsemide (Demadex) 10 mg DAILY PO 06/27/21 09:00 Torsemide (Demadex) 20 mg BID@,17 PO 06/23/21 09:00 06/24/21 20:44 DC 06/24/21 17:04 Torsemide (Demadex) 20 mg DAILY PO 06/26/21 09:00 06/25/21 18:22 AMADOR CARLISLE MD Jun 27, 2021 09:27
[2021-06-27] MEDS: PANTOPRAZOLE 40MG TAB (PROTONIX) PO SCH (10:15)
[2021-06-27] MEDS: GABAPENTIN 100 MG CAP PO SCH ×3 (10:15→21:28)
[2021-06-27] MEDS: ATENOLOL 12.5MG PER 1/2 TABLET PO SCH (10:18)
[2021-06-27] MEDS: ACETAMINOPHEN 500 MG TAB PO SCH ×3 (10:18→21:28)
[2021-06-27] MEDS: OMEGA-3 1000MG CAPSULE PO SCH (10:18)
[2021-06-27] MEDS: ASPIRIN 81MG ENTERIC TABLET PO SCH (10:18)
[2021-06-27] MEDS: PRAVASTATIN 20 MG TAB PO SCH (10:19)
[2021-06-27] MEDS: CLOPIDOGREL 75 MG TAB PO SCH (10:19)
[2021-06-27] MEDS: ENOXAPARIN 40MG/0.4ML SYRINGE (J1650 PER 10MG) SC SCH (10:20)
[2021-06-27] MEDS: REMEDY PHYTOPLEX Z-GUARD PASTE 113GM TUBE (FROM STOREROOM PRODUCT) TOP SCH ×3 (10:20→21:00)
[2021-06-27] MEDS: DOCUSATE SODIUM 100MG CAPSULE PO SCH ×2 (10:20→21:00)
[2021-06-27] MEDS: TORSEMIDE 10 MG TABLET PO SCH (10:20)
[2021-06-27 14:00] VITALS: BP 160/71
[2021-06-27] MEDS: MAGNESIUM SULFATE GRANULES(EPSOM SALT) 1LB TOP SCH (16:29)
[2021-06-27] MEDS: VANICREAM MOISTURIZING SKIN CREAM 113GM TUBE TOP SCH (16:30)
[2021-06-27] MEDS: **NOTE PATIENT COMMENT** MISC XX SCH (16:30)
--- NOTE | 2021-06-27 19:46 | IPN ---
NEPHROLOGY PROGRESS NOTE DATE: 06/27/2021 SUBJECTIVE: Mr. Montalvo is seen this morning at his bedside. His skidder runner and nursing staff is present in the room. The patient is sitting in the chair. He continues to participate in his acute rehab. His pain in the right ankle is improving. There is no dyspnea, chest pain, nausea or vomiting reported. OBJECTIVE: PHYSICAL EXAMINATION: VITAL SIGNS: Temperature is 97 degrees Fahrenheit, heart rate 60 per minute and respiratory rate 18 per minute, blood pressure 133/86 mm of mercury earlier and most recent one is 175/75 mm of mercury. His oxygen saturation is 95% on room air. HEENT: His head is atraumatic. NECK: Supple and without JVD sitting upright. HEART: Sounds are regular. LUNGS: Sound clear to auscultation. ABDOMEN: Soft and nontender and bowel sounds are normal. EXTREMITIES: Without any cyanosis or clubbing. The right ankle is wrapped in a dressing. There is minimal edema on his lower extremities. NEUROLOGICAL: He is unable to talk. He communicates with sign language or by writing. LABORATORY STUDIES: Today's labs show a WBC count of 4.8, hemoglobin 11.9 and hematocrit 37.8. Sodium 143, potassium 4.4, CO2 29, BUN 21 and creatinine 0.89, glucose 100, calcium 9.7. PROBLEMS: 1. Acute kidney injury - kidney function has improved back to baseline. His electrolytes are within normal range. Diuretic dose has been cut down. 2. Congestive heart failure so far he seems quite compensated. His torsemide dose has been cut down to 10 mg daily at this time. We will continue to monitor and make further adjustments as needed. 3. Hypertension - blood pressure is slightly on the high side today. We will monitor close and adjust his antihypertensive medications. He is currently on Atenolol 12.5 mg once a day and Torsemide 10 mg once a day. Now that his kidney function has improved, we can consider adding a low dose angiotensin receptor paul. I would monitor his blood pressure for the next 24 hours before making any changes.
[2021-06-27 20:00] VITALS: BP 155/70
[2021-06-27] MEDS ORDERED: **NOTE PATIENT COMMENT** MISC XX SCH (21:00)
[2021-06-27] MEDS: SENNA 8.6 MG TAB (SENOKOT) PO SCH (21:00)
[2021-06-27] MEDS: LATANOPROST 0.005% OPHTH SOLN 2.5 ML OU SCH (21:28)
[2021-06-28 06:00] VITALS: BP 164/84
[2021-06-28] MEDS: LIDOCAINE 5% (LIDODERM) PATCH TD SCH ×2 (06:03)
[2021-06-28] MEDS: COMBIVENT RESPIMAT 100-20MCG INHALER 4GM INH SCH ×3 (08:00→19:53)
[2021-06-28] MEDS: SYMBICORT 160/4.5MCG INHALER 6GM INH SCH ×2 (08:00→19:52)
[2021-06-28] MEDS: PANTOPRAZOLE 40MG TAB (PROTONIX) PO SCH (10:35)
[2021-06-28] MEDS: ASPIRIN 81MG ENTERIC TABLET PO SCH (10:35)
[2021-06-28] MEDS: TORSEMIDE 10 MG TABLET PO SCH (10:35)
[2021-06-28] MEDS: CLOPIDOGREL 75 MG TAB PO SCH (10:35)
[2021-06-28] MEDS: OMEGA-3 1000MG CAPSULE PO SCH (10:35)
[2021-06-28] MEDS: DOCUSATE SODIUM 100MG CAPSULE PO SCH ×2 (10:35→21:00)
[2021-06-28] MEDS: ENOXAPARIN 40MG/0.4ML SYRINGE (J1650 PER 10MG) SC SCH (10:35)
[2021-06-28] MEDS: PRAVASTATIN 20 MG TAB PO SCH (10:36)
[2021-06-28] MEDS: GABAPENTIN 100 MG CAP PO SCH ×3 (10:36→21:33)
[2021-06-28] MEDS: ACETAMINOPHEN 500 MG TAB PO SCH ×3 (10:36→21:34)
[2021-06-28] MEDS: REMEDY PHYTOPLEX Z-GUARD PASTE 113GM TUBE (FROM STOREROOM PRODUCT) TOP SCH ×3 (10:37→21:00)
[2021-06-28] MEDS: ATENOLOL 12.5MG PER 1/2 TABLET PO SCH (10:37)
[2021-06-28] MEDS ORDERED: **hydrALAZINE HCL** 25 MG TAB PO ONE (11:05)
[2021-06-28 14:00] VITALS: BP 164/71
[2021-06-28] MEDS ORDERED: BACLOFEN 5MG PER 1/2 TABLET PO PRN (16:25)
--- NOTE | 2021-06-28 16:56 | REP ---
INDICATION: rib pain. COMPARISON: Chest radiograph and CT 06/07/2021. TECHNIQUE: Four views right ribs performed, frontal view chest. FINDINGS: There is no evidence of right rib fracture or bone lesion. There is no infiltrate in either lung. The heart is upper limits of normal in size. There are degenerative changes of the spine. IMPRESSION: Negative right rib series. <Electronically signed by Dane Kahn > 06/28/21 [id number]
[2021-06-28] MEDS: **NOTE PATIENT COMMENT** MISC XX SCH (17:26)
[2021-06-28] MEDS: MAGNESIUM SULFATE GRANULES(EPSOM SALT) 1LB TOP SCH (17:29)
[2021-06-28] MEDS: VANICREAM MOISTURIZING SKIN CREAM 113GM TUBE TOP SCH (17:29)
[2021-06-28 20:00] VITALS: BP 132/62
[2021-06-28] MEDS: **hydrALAZINE HCL** 25 MG TAB PO SCH (21:00)
[2021-06-28] MEDS: SENNA 8.6 MG TAB (SENOKOT) PO SCH (21:00)
[2021-06-28] MEDS: LATANOPROST 0.005% OPHTH SOLN 2.5 ML OU SCH (21:34)
--- NOTE | 2021-06-28 22:10 | IPN ---
PROGRESS NOTE DATE: 06/28/2021 SUBJECTIVE: Mr. Montalvo is seen this morning on his bedside. He is sitting in the chair participating in physical therapy. He does not have an fiberglass pipe covering supervisor today. Patient is able to write his answers and also ask questions by writing. PHYSICAL EXAMINATION: VITALS: Temperature 97.5 degrees Fahrenheit, heart rate 62 per minute, respiratory rate 18 per minute, blood pressure 149/60 mmHg, oxygen saturation 96% on room air. HEENT: Head is atraumatic. Neck supple and without JVD or thyroid enlargement. HEART: Heart sounds are regular. LUNGS: Clear to auscultation. ABDOMEN: Soft and nontender and bowel sounds are normal. EXTREMITIES: Without any cyanosis or clubbing. Right ankle is wrapped in dressing. LABORATORY STUDIES: The patient did not have any new labs done today. PROBLEMS: 1. Acute on chronic kidney disease: Kidney function has improved with the decreased diuretic dose. At present, we will continue to monitor closely and increase his diuretic if needed. He has been in negative fluid balance for the last five days. 2. Hypertension: Blood pressure is still somewhat high. I have started him on Hydralazine at 25 mg b.i.d. and we will adjust the dose if needed. 3. Anemia: He has mild anemia which is stable and CBC will be checked again tomorrow. 4. Right ankle fracture: Patient reports that his pain is improving and he remains on rehab.
[2021-06-29 06:00] VITALS: BP 166/68
[2021-06-29] MEDS: LIDOCAINE 5% (LIDODERM) PATCH TD SCH ×2 (06:12)
[2021-06-29 06:39] LABS: BASO # 0.1 10^3/uL (0.0-0.2); BASO % 1.5 % (0.0-1.0); EOS # 0.3 10^3/uL (0.0-0.5); EOS % 6.3 % (0.0-3.0); HEMOGLOBIN 11.7 g/dl (13.5-17.5); LYMPH # 1.3 10^3/uL (1.5-5.0); LYMPH % 25.2 % (24.0-44.0); MEAN CORPUSCULAR HEMOGLOBIN 29.9 pg (27.0-33.0); MEAN CORPUSCULAR HGB CONC 31.6 g/dl (32.0-36.5); MEAN CORPUSCULAR VOLUME 94.6 fl (80.0-96.0); MONO # 0.7 10^3/uL (0.0-0.8); MONO % 13.4 % (2.0-8.0); NEUTROPHILS # 2.8 10^3/uL (1.5-8.5); PLATELET COUNT, AUTOMATED 354 10^3/uL (150-450); RED BLOOD COUNT 3.91 10^6/uL (4.30-6.10); WHITE BLOOD COUNT 5.2 10^3/uL (4.0-10.0)
[2021-06-29 07:07] LABS: BLOOD UREA NITROGEN 21 MG/DL (7-18); CALCIUM LEVEL 9.7 MG/DL (8.8-10.2); CARBON DIOXIDE LEVEL 31 MEQ/L (21-32); CHLORIDE LEVEL 106 MEQ/L (98-107); CREATININE FOR GFR 1.01 MG/DL (0.70-1.30); GLOMERULAR FILTRATION RATE > 60.0 (>35); GLUCOSE, FASTING 100 MG/DL (70-100); POTASSIUM SERUM 4.6 MEQ/L (3.5-5.1); SODIUM LEVEL 144 MEQ/L (136-145)
[2021-06-29] MEDS: COMBIVENT RESPIMAT 100-20MCG INHALER 4GM INH SCH ×3 (07:10→20:00)
[2021-06-29] MEDS: SYMBICORT 160/4.5MCG INHALER 6GM INH SCH ×2 (07:10→20:16)
[2021-06-29] MEDS: ENOXAPARIN 40MG/0.4ML SYRINGE (J1650 PER 10MG) SC SCH (10:08)
[2021-06-29] MEDS: PANTOPRAZOLE 40MG TAB (PROTONIX) PO SCH (10:08)
[2021-06-29] MEDS: GABAPENTIN 100 MG CAP PO SCH ×3 (10:08→21:36)
[2021-06-29] MEDS: ASPIRIN 81MG ENTERIC TABLET PO SCH (10:08)
[2021-06-29] MEDS: OMEGA-3 1000MG CAPSULE PO SCH (10:08)
[2021-06-29] MEDS: CLOPIDOGREL 75 MG TAB PO SCH (10:08)
[2021-06-29] MEDS: DOCUSATE SODIUM 100MG CAPSULE PO SCH ×2 (10:08→21:00)
[2021-06-29] MEDS: TORSEMIDE 10 MG TABLET PO SCH (10:08)
[2021-06-29] MEDS: PRAVASTATIN 20 MG TAB PO SCH (10:09)
[2021-06-29] MEDS: REMEDY PHYTOPLEX Z-GUARD PASTE 113GM TUBE (FROM STOREROOM PRODUCT) TOP SCH ×3 (10:10→21:00)
[2021-06-29] MEDS: ACETAMINOPHEN 500 MG TAB PO SCH ×3 (10:10→21:36)
[2021-06-29] MEDS: **hydrALAZINE HCL** 25 MG TAB PO SCH ×2 (10:18→21:37)
[2021-06-29] MEDS: ATENOLOL 12.5MG PER 1/2 TABLET PO SCH (10:19)
--- NOTE | 2021-06-29 13:01 | IPNPDOC ---
PM&R Progress Note DATE OF SERVICE: Jun 29, 2021 Assistant Professor Of Chemistry Progress Note Subjective: PAtient reporting his right side is bothering him, it is nonradiating pain and the lidoderm patch is not helping. Patient noted to have pain when attempting to lean forward int he chair. REVIEW OF SYSTEMS: The following is a completed review of systems and has been reviewed. Review of systems otherwise unremarkable. PAIN: right ankle pain, right mid-back pain EYES: No recent vision changes EARS, NOSE, & THROAT: +deaf CARDIOVASCULAR: Denies chest pain or palpitations PULMONARY: Denies shortness of breath GASTROINTESTINAL: Denies constipation/diarrhea GENITOURINARY: no dysuria MUSCULOSKELETAL:+generalized weakness, right fibular fracture NEUROLOGICAL: denies paresthesias HEMATOLOGICAL: denies easy bruising SKIN: LE wounds PSYCHIATRIC: Unremarkable All other review of systems found to be negative. PHYSICAL EXAMINATION: VITAL SIGNS: Please see below. GENERAL: Pleasant and cooperative. No acute distress. HEENT: PERRL. Extraocular movements intact. Clear conjunctiva CARDIOVASCULAR: Regular rate and rhythm. No murmurs, rubs, or gallops LUNGS: Clear to auscultation bilaterally. No wheezes. No rhonchi ABDOMEN: Soft, nontender, nondistended. Positive bowel sounds. Normal active bowel sounds NEUROLOGICAL: Cranial nerves II through XII grossly intact. Sensation grossly intact able to follow commands and answer questions appropriately (using pad and pen) EXTREMITIES: 5\5 strength bilateral upper extremities. 5\5 strength right lower extremity. 5/5 strength in left lower extremity. +bilat LE edema (improving) right ankle TTP lateral malleoli, no instability, edematous throughout foot/ankle/calf, no warmth to touch (swelling improved) TTP right sided external obliques origin SKIN: bilat LE venous stasis changes, left foot with no exudative ulcers ASSESSMENT:81-year-old M with past medical history of PAD, CHF who presents status post weakness in setting of sepsis due to LE cellulitis PLAN: 1. Rehab- PT/OT- advance mobility and ADLs, strengthen/stretch/maintain ROM all 4 limbs 2. Cardiac- diastolic CHF with recent exacerbation, fluid restrict, daily weights, lasix (d/c'd for now due to CHERI pending renal eval) -HTN cont BP meds -PAD- cont ASA and Plavix -HLD- statin -medicine consulted to assist in management 3. Resp- monitor for infection, former smoker with restrictive lung disease- cont combivent and symbicort 4. GI ppx- Protonix 5. DVT ppx- lovenox 6. ID- s/p course of antibiotics for LE cellulitis, monitor 7. Pain- Tylenol and oxycodone -right ankle pain- MRI on 06-22-21 confirmed non-displaced distal fibular fracture with ankle sprain, discussed case with Dr. Matta who recommends NWB for at least 6 weeks, and to consider using Aircast for support/compression, CAM boot not advised due to LE venous stasis and susceptibility to wounds, discussed with ortho ok for patient to be PWB for stairs in order to access his home and bathroom transfers only -f/u ortho outpatient -right sided mid-back pain likely muscle strain cont lidoderm patch, rib XR ordered and negative for fracture, will trial baclofen for muscle spasm as pain most prominent at origin of external obliques 8. Skin- LE wounds please see dressing changes 9. Renal- Patient with CHERI and significant LE edema, which has improved since renal recs and intervention- appreciated 10. Endo- patient on ISS, finger sticks all low, recent A1C 5.9%, patient does not appear to be diabetic at this time, will c/u to monitor FS and may d/c while here 11. Dispo- 07-05-21 to home, home eval set up for today, patient will need to be w/c level given newly identified ankle fracture Allergies Coded Allergies: No Known Allergies (Verified , 03/25/18) Vital Signs Vital Signs Date Time Temp Pulse Resp B/P (MAP) Pulse Ox O2 Delivery O2 Flow Rate FiO2 06/29/21 10:19 61 06/29/21 10:18 164/62 06/29/21 06:00 97.3 19 97 Room Air Laboratory Data CBC/BMP Laboratory Tests 06/29/21 06:03 Labs 24H Laboratory Tests 2 06/29/21 06:03: Immature Granulocyte % (Auto) 0.6, Neutrophils (%) (Auto) 53.0, Lymphocytes (%) (Auto) 25.2, Monocytes (%) (Auto) 13.4H, Eosinophils (%) (Auto) 6.3H, Basophils (%) (Auto) 1.5H, Neutrophils # (Auto) 2.8, Lymphocytes # (Auto) 1.3L, Monocytes # (Auto) 0.7, Eosinophils # (Auto) 0.3, Basophils # (Auto) 0.1, Nucleated Red Blood Cells % (auto) 0.0, Anion Gap 7L, Glomerular Filtration Rate > 60.0, Calcium Level 9.7 Current Medications Current Medications Current Medications Medications (Trade) Dose Ordered Sig/Geovany Route PRN Reason Start Time Stop Time Status Last Admin Dose Admin Acetaminophen (Tylenol Tab) 1,000 mg TID PO 06/19/21 21:00 06/29/21 10:10 Albuterol/ Ipratropium (Combivent Respimat 100-20mcg) 1 puff RTID INH 06/19/21 20:00 06/28/21 14:04 Amlodipine Besylate (Norvasc) 5 mg DAILY PO 06/23/21 09:00 06/23/21 11:57 DC 06/23/21 08:48 Aspirin (Ecotrin) 81 mg DAILY PO 06/20/21 09:00 06/29/21 10:08 Atenolol (Tenormin) 12.5 mg DAILY PO 06/21/21 09:00 06/29/21 10:19 Atenolol (Tenormin) 25 mg DAILY PO 06/20/21 09:00 06/20/21 17:09 DC 06/20/21 09:47 Baclofen (Lioresal) 5 mg BIDP PRN PO muscle spasm 06/28/21 16:25 Bisacodyl (Dulcolax Suppository) 10 mg DAILYPRN PRN TN CONSTIPATION 06/19/21 15:25 Budesonide/ Formoterol Fumarate (Symbicort 160/ 4.5mcg) 2 puff RBID INH 06/19/21 20:00 06/29/21 07:10 Clopidogrel Bisulfate (PLAVix) 75 mg DAILY PO 06/20/21 09:00 06/29/21 10:08 Dextrose (Dextrose 50%) 25 ml ASDIRECTED PRN IV SEE LABEL COMMENTS 06/20/21 17:10 Docusate Sodium (Colace) 100 mg BID PO 06/19/21 21:00 06/29/21 10:08 Emollient Cream (Vanicream) daily per wound care instructions DAILY TOP 06/21/21 09:00 06/26/21 09:10 DC 06/25/21 08:12 Emollient Cream (Vanicream) daily per wound care instructions DAILY@1700 TOP 06/26/21 17:00 06/28/21 17:29 Enoxaparin Sodium (Lovenox) 40 mg DAILY SC 06/20/21 09:00 06/29/21 10:08 Fish Oil (Alexander-3 (1000mg)) 1 cap DAILY PO 06/20/21 09:00 06/29/21 10:08 Furosemide (Lasix) 20 mg BID@,17 PO 06/21/21 13:30 06/21/21 13:59 DC Furosemide (Lasix) 40 mg DAILY PO 06/20/21 09:00 06/22/21 09:28 DC 06/22/21 08:33 Gabapentin (Neurontin) 100 mg TID PO 06/23/21 16:00 06/25/21 13:19 DC 06/25/21 08:10 Gabapentin (Neurontin) 200 mg TID PO 06/25/21 16:00 06/29/21 10:08 Glucagon (Glucagon) 1 mg ASDIRECTED PRN SC SEE LABEL COMMENTS 06/20/21 17:10 Glucose (Glucose) 16 GM ASDIRECTED PRN PO SEE LABEL COMMENTS 06/20/21 17:10 Home Med (Home Med List Complete!) ASDIRECTED XX 06/26/21 07:35 06/26/21 07:38 DC Hydralazine HCl (Apresoline) 25 mg BID PO 06/28/21 21:00 06/29/21 12:49 DC 06/29/21 10:18 Hydralazine HCl (Apresoline) 25 mg TID PO 06/29/21 16:00 Insulin Human Lispro (HumaLOG INSULIN) SEE PROTOCOL TABLE AC SC 06/20/21 17:30 06/22/21 11:37 DC 06/22/21 08:31 Insulin Human Lispro (HumaLOG INSULIN) SEE PROTOCOL TABLE QHS SC 06/20/21 21:00 06/22/21 11:37 DC Latanoprost (Xalatan 0.005% Op Soln) 1 drop QHS OU 06/19/21 21:00 06/28/21 21:34 Lidocaine (Lidoderm Patch) 1 patch DAILY TD 06/27/21 09:00 06/27/21 11:17 DC Lidocaine (Lidoderm Patch) 1 patch DAILY@0700 TD 06/27/21 07:00 06/29/21 06:12 Lidocaine (Lidoderm Patch) 1 patch DAILY@0700 TD 06/21/21 07:00 06/29/21 06:12 Lisinopril (Prinivil) 20 mg DAILY PO 06/21/21 09:00 06/22/21 09:27 DC 06/22/21 08:34 Magnesium Sulfate (Epsom Salt) daily at 5pm soak bilate... DAILY@1700 TOP 06/20/21 17:00 06/28/21 17:29 Non-Formulary Medication ( See Comment Field Below ) REMOVE LIDODERM PATC... DAILY@1700 XX 06/21/21 17:00 06/28/21 17:26 Non-Formulary Medication ( See Comment Field Below ) REMOVE LIDODERM PATCH DAILY@21 XX 06/27/21 21:00 06/27/21 11:19 DC Oxycodone HCl (Roxicodone, Oxyir) 5 mg Q4HP PRN PO MODERATE PAIN (PS 5-7) 06/19/21 15:25 06/23/21 12:22 DC 06/23/21 08:45 Oxycodone HCl (Roxicodone, Oxyir) 7.5 mg Q4HP PRN PO PAIN LEVEL 6-10 06/23/21 12:25 06/26/21 00:44 Pantoprazole Sodium (Protonix) 40 mg DAILY PO 06/20/21 09:00 06/29/21 10:08 Pravastatin Sodium (Pravachol) 40 mg DAILY PO 06/20/21 09:00 06/29/21 10:09 Pravastatin Sodium (Pravachol) 40 mg QHS PO 06/19/21 21:00 06/19/21 16:56 DC Senna (Senokot) 1 tab QHS PO 06/19/21 21:00 06/25/21 21:10 Torsemide (Demadex) 10 mg DAILY PO 06/27/21 09:00 06/29/21 10:08 Torsemide (Demadex) 20 mg BID@17 PO 06/23/21 09:00 9/12/21 20:44 DC 06/24/21 17:04 Torsemide (Demadex) 20 mg DAILY PO 06/26/21 09:00 06/25/21 18:22 AMADOR CARLISLE MD Jun 29, 2021 13:01
[2021-06-29 14:00] VITALS: BP 145/82
[2021-06-29] MEDS ORDERED: **hydrALAZINE HCL** 25 MG TAB PO SCH (16:00)
--- NOTE | 2021-06-29 16:17 | IPNPDOC ---
Text Note Date of Service The patient was seen on 06/29/21. NOTE Subjective: Patient is an 81-year-old male who is currently in the acute rehab unit. Patient is deaf and translation was done through the physical therapist who is able to communicate with the patient there are some language. Patient does not have any complaints today. Patient is otherwise feeling well Physical exam: Vitals: See below General: Alert and oriented male patient is sitting in the bedside chair and walked in. Patient did not appear to be in any acute distress. HEENT: Normocephalic, atraumatic, moist mucous membranes. Neck: No lymphadenopathy or thyromegaly Cardiac: Regular rate and rhythm, no murmurs, normal S1, normal S2 Pulm: Clear to auscultation bilaterally. No wheezes, rhonchi, rales Abd: Nondistended, nontender to palpation, normal bowel sounds Ext: No edema bilateral lower extremities Labs: See below Imaging: No new imaging has been performed Assessment/plan: 81-year-old male with past medical history of deafness, hypertension, NICOLAS, type 2 diabetes mellitus, and peripheral artery disease status post bilateral lower extremity angioplasties transferred to acute rehab for continued treatment. Patient is doing well at this time. 1. Bradycardia. Most likely secondary beta-paul. Heart rate has been improved. 2. Hypertension. Continue to monitor. 3. Type 2 diabetes. Insulin sliding scale. Diabetic diet. 4. Deconditioning. PT/OT. Continue plan per ARU staff. 5. Diastolic congestive heart failure. Not in acute exacerbation. Continue to monitor. 6. Peripheral artery disease. Continue with aspirin, Plavix, statin therapy. DVT Prophylaxis: Lovenox Disposition: Discharge per ARU Simon TSUART, I+O VS, Simon, I+O Laboratory Tests 06/29/21 06:03 Vital Signs Date Time Temp Pulse Resp B/P (MAP) Pulse Ox O2 Delivery O2 Flow Rate FiO2 06/29/21 14:00 96.7 52 18 145/82 (103) 95 Room Air I&O- Last 24 Hours up to 6 AM 06/29/21 06:00 Intake Total 630 ml Output Total 1450 ml Balance -820 ml MAR MATIAS DO Jun 29, 2021 16:17
[2021-06-29] MEDS: MAGNESIUM SULFATE GRANULES(EPSOM SALT) 1LB TOP SCH (17:32)
[2021-06-29] MEDS: **NOTE PATIENT COMMENT** MISC XX SCH (17:33)
[2021-06-29] MEDS: VANICREAM MOISTURIZING SKIN CREAM 113GM TUBE TOP SCH (17:33)
[2021-06-29 20:00] VITALS: BP 171/72
[2021-06-29] MEDS: SENNA 8.6 MG TAB (SENOKOT) PO SCH (21:00)
[2021-06-29] MEDS: LATANOPROST 0.005% OPHTH SOLN 2.5 ML OU SCH (21:37)
--- NOTE | 2021-06-29 21:37 | IPN ---
NEPHROLOGY PROGRESS NOTE DATE: 06/29/2021 SUBJECTIVE: Mr. Montalvo is seen this morning on his bedside with the help of nursing staff who interpreted with sign language. Patient has been feeling well and denies any dyspnea or chest pain. He has dressings on both lower legs. He has no nausea or vomiting. PHYSICAL EXAMINATION: VITAL SIGNS: Temperature 97.3 degrees Fahrenheit, heart rate 60 per minute, respiratory rate 18 per minute, blood pressure 164/62 mmHg, oxygen saturation 95% on room air. HEAD: Atraumatic. NECK: Supple and without jugular venous distention (JVD) or thyroid enlargement. HEART SOUNDS: Regular. LUNGS: Clear to auscultation. ABDOMEN: Soft, protuberant and nontender. Bowel sounds are normal. EXTREMITIES: Without any cyanosis or clubbing. Both legs are wrapped in dressings. LABORATORY DATA: Today's labs show WBC 5.2, hemoglobin 11.7, hematocrit 37.0. Sodium 144, potassium 4.6, BUN 21, creatinine 1.0, glucose 100, calcium 9.7. PROBLEMS: 1. Acute kidney injury superimposed on chronic kidney disease. Kidney function has improved and stabilized now at baseline. Electrolytes are all within normal range. 2. Hypertension. Blood pressure is still somewhat high. We just yesterday started with hydralazine 25 mg twice a day, which has now been increased to 25 mg three times a day. I think this is appropriate. He remains on torsemide 10 mg daily and atenolol 12.5 mg daily. 3. Congestive heart failure. Volume status clinically seems well compensated with 10 mg torsemide. When he was on higher dose, he developed acute kidney injury. All other issues are being addressed by rehabilitation services.
[2021-06-30] MEDS: **hydrALAZINE HCL** 25 MG TAB PO SCH ×3 (05:57→20:27)
[2021-06-30] MEDS: LIDOCAINE 5% (LIDODERM) PATCH TD SCH ×2 (05:59→06:02)
[2021-06-30 06:00] VITALS: BP 164/72
[2021-06-30] MEDS: COMBIVENT RESPIMAT 100-20MCG INHALER 4GM INH SCH ×3 (07:17→18:19)
[2021-06-30] MEDS: SYMBICORT 160/4.5MCG INHALER 6GM INH SCH ×2 (07:17→18:19)
[2021-06-30] MEDS: ASPIRIN 81MG ENTERIC TABLET PO SCH (08:08)
[2021-06-30] MEDS: PANTOPRAZOLE 40MG TAB (PROTONIX) PO SCH (08:08)
[2021-06-30] MEDS: ENOXAPARIN 40MG/0.4ML SYRINGE (J1650 PER 10MG) SC SCH (08:08)
[2021-06-30] MEDS: CLOPIDOGREL 75 MG TAB PO SCH (08:08)
[2021-06-30] MEDS: OMEGA-3 1000MG CAPSULE PO SCH (08:08)
[2021-06-30] MEDS: ACETAMINOPHEN 500 MG TAB PO SCH ×3 (08:08→20:27)
[2021-06-30] MEDS: GABAPENTIN 100 MG CAP PO SCH ×3 (08:08→20:26)
[2021-06-30] MEDS: ATENOLOL 12.5MG PER 1/2 TABLET PO SCH (08:09)
[2021-06-30] MEDS: PRAVASTATIN 20 MG TAB PO SCH (08:09)
[2021-06-30] MEDS: TORSEMIDE 10 MG TABLET PO SCH (08:09)
[2021-06-30] MEDS: REMEDY PHYTOPLEX Z-GUARD PASTE 113GM TUBE (FROM STOREROOM PRODUCT) TOP SCH ×3 (08:12→20:28)
[2021-06-30] MEDS: DOCUSATE SODIUM 100MG CAPSULE PO SCH ×2 (08:12→20:26)
--- NOTE | 2021-06-30 12:46 | IPNPDOC ---
Text Note Date of Service The patient was seen on 06/30/21. NOTE SUBJECTIVE: Patient is seated by his bedside in his wheelchair while physical therapy is getting ready to work with him. The administrative underwriter is sitting with him in the room makes it easier to communicate with him. He had questions about his kidney function which were answered. His kidney function is staying stable makes him happy. However he complains of leg pain and a one-time pain in his stomach last night however it went away within seconds. He has no other acute complaints today. No acute overnight events. OBJECTIVE: Physical exam: Vitals: See below General: Alert and oriented male patient is sitting in the bedside chair and walked in. Patient did not appear to be in any acute distress. HEENT: Normocephalic, atraumatic, moist mucous membranes. Neck: No lymphadenopathy or thyromegaly Cardiac: Regular rate and rhythm, no murmurs, normal S1, normal S2 Pulm: Clear to auscultation bilaterally. No wheezes, rhonchi, rales Abd: Nondistended, nontender to palpation, normal bowel sounds Ext: No edema bilateral lower extremities ASSESSMENT AND PLAN: 81M pmh HTN, NICOLAS, DM2, restrictive lung disease, HLD, former smoker, PAD s/p LE extremity balloon angioplasties, bilat LE ulcers presented to [facility] ED on 06-07-21 reporting he fell at home with LOC and mid-back pain. He was diagnosed with sepsis, started on IV antibiotics for right LE cellulitis, with MRI foot negative for osteomyelitis. Additionally he had acute diastolic CHF requiring aggressive diuresis with CHERI. He had difficulty with walking due to weakness and pain with mobility and ADL impairments below his prior level of function and deemed medically appropriate for discharge to ARU on 06-19-21. 1. Acute kidney injury superimposed on chronic kidney disease. Kidney function has improved and stabilized now at baseline. Electrolytes are all within normal range. 2. Hypertension. Blood pressure is stable on hydralazine 25 mg three times daily. He remains on torsemide 10mg daily and atenolol 12.5 mg daily. 3. Congestive heart failure. Volume status clinically seems well compensated with 10 mg torsemide. VS,Fishbone, I+O VS, Fishbone, I+O Vital Signs Date Time Temp Pulse Resp B/P (MAP) Pulse Ox O2 Delivery O2 Flow Rate FiO2 06/30/21 08:09 62 164/72 06/30/21 06:00 97.1 18 93 Room Air I&O- Last 24 Hours up to 6 AM 06/30/21 06:00 Intake Total 600 ml Output Total 1170 ml Balance -570 ml GME ATTESTATION GME ATTESTATION My faculty preceptor for this patient encounter was physically present during the encounter and was fully available. All aspects of the patient interview, examination, medical decision making process, and medical care plan development were reviewed and approved by the faculty preceptor. The faculty preceptor is aware and concurs with the plan as stated in the body of this note and will attest to such by his/her cosignature. Biis Houston MD Jun 30, 2021 12:42
[2021-06-30 14:00] VITALS: BP 152/67
[2021-06-30] MEDS: MAGNESIUM SULFATE GRANULES(EPSOM SALT) 1LB TOP SCH (16:45)
[2021-06-30] MEDS: VANICREAM MOISTURIZING SKIN CREAM 113GM TUBE TOP SCH (16:45)
[2021-06-30] MEDS: **NOTE PATIENT COMMENT** MISC XX SCH (16:46)
[2021-06-30 20:00] VITALS: BP 134/63
[2021-06-30] MEDS: SENNA 8.6 MG TAB (SENOKOT) PO SCH (20:26)
[2021-06-30] MEDS: LATANOPROST 0.005% OPHTH SOLN 2.5 ML OU SCH (20:28)
[2021-07-01 05:07] VITALS: BP 138/50
[2021-07-01] MEDS: **hydrALAZINE HCL** 25 MG TAB PO SCH ×3 (06:20→21:34)
[2021-07-01] MEDS: LIDOCAINE 5% (LIDODERM) PATCH TD SCH ×2 (06:21)
[2021-07-01] MEDS: COMBIVENT RESPIMAT 100-20MCG INHALER 4GM INH SCH ×2 (08:00→19:55)
[2021-07-01] MEDS: SYMBICORT 160/4.5MCG INHALER 6GM INH SCH ×2 (08:12→20:00)
[2021-07-01] MEDS: DOCUSATE SODIUM 100MG CAPSULE PO SCH ×2 (08:27→21:34)
[2021-07-01] MEDS: CLOPIDOGREL 75 MG TAB PO SCH (08:27)
[2021-07-01] MEDS: ACETAMINOPHEN 500 MG TAB PO SCH ×3 (08:27→21:35)
[2021-07-01] MEDS: TORSEMIDE 10 MG TABLET PO SCH ×2 (08:28→16:36)
[2021-07-01] MEDS: GABAPENTIN 100 MG CAP PO SCH ×3 (08:28→21:34)
[2021-07-01] MEDS: PANTOPRAZOLE 40MG TAB (PROTONIX) PO SCH (08:28)
[2021-07-01] MEDS: OMEGA-3 1000MG CAPSULE PO SCH (08:28)
[2021-07-01] MEDS: PRAVASTATIN 20 MG TAB PO SCH (08:28)
[2021-07-01] MEDS: ASPIRIN 81MG ENTERIC TABLET PO SCH (08:28)
[2021-07-01] MEDS: ATENOLOL 12.5MG PER 1/2 TABLET PO SCH (08:29)
[2021-07-01] MEDS: ENOXAPARIN 40MG/0.4ML SYRINGE (J1650 PER 10MG) SC SCH (08:29)
[2021-07-01] MEDS: REMEDY PHYTOPLEX Z-GUARD PASTE 113GM TUBE (FROM STOREROOM PRODUCT) TOP SCH ×3 (08:33→21:35)
[2021-07-01 14:00] VITALS: BP 128/60
[2021-07-01] MEDS: MAGNESIUM SULFATE GRANULES(EPSOM SALT) 1LB TOP SCH (14:34)
[2021-07-01] MEDS: VANICREAM MOISTURIZING SKIN CREAM 113GM TUBE TOP SCH (14:35)
[2021-07-01] MEDS: **NOTE PATIENT COMMENT** MISC XX SCH (14:35)
--- NOTE | 2021-07-01 18:29 | IPN ---
NEPHROLOGY PROGRESS NOTE DATE: 07/01/2021 SUBJECTIVE: Mr. Montalvo is seen this morning on his bedside. He has an sheet manufacturing supervisor present in the room today. Patient is laying in the bed. Most of the time, when I come to see him, he is in the chair but today is the first time that he is in the bed. He looks comfortable and denies any dyspnea or chest pain. PHYSICAL EXAMINATION: VITAL SIGNS: Temperature 98 degrees Fahrenheit, heart rate 64 per minute, respiratory rate 20 per minute, blood pressure 130/60 mmHg, oxygen saturation 94% on room air. HEAD: Atraumatic. NECK: Supple and jugular venous distention (JVD) is elevated at least 9-10 cm above sternal angle. HEART SOUNDS: Regular. LUNGS: Slightly diminished breath sounds at bases. ABDOMEN: Obese, soft and nontender. Bowel sounds are normal. EXTREMITIES: Without any cyanosis or clubbing. Both legs are wrapped in dressings. He does have edema, at least 1-2+, bilaterally. NEUROLOGIC: He is at his baseline mentation and communicates with sign language. LABORATORY DATA: Patient did not have any labs again today. PROBLEMS: 1. Congestive heart failure. His volume status is decompensated. He is difficult to be assessed, particularly when he is sitting in the chair. Today he was in the bed and I was able to have a good evaluation. Increasing his torsemide dose to 10 mg twice a day. He follows a low sodium diet and remains within his fluid restriction. 2. Acute on chronic kidney disease. He did have acute kidney injury when he was diuresed more aggressively. Now kidney function has been stable and his kidney function will be checked again tomorrow. 3. Hypertension. His blood pressure was high a couple of days ago; however, it has now been much better and likely to improve with increased diuresis. We may have to cut down his hydralazine dose if his blood pressure goes too low.
[2021-07-01 20:00] VITALS: BP 129/61
[2021-07-01] MEDS: SENNA 8.6 MG TAB (SENOKOT) PO SCH (21:34)
[2021-07-01] MEDS: LATANOPROST 0.005% OPHTH SOLN 2.5 ML OU SCH (21:35)
[2021-07-02] MEDS: **hydrALAZINE HCL** 25 MG TAB PO SCH ×4 (06:14→22:21)
[2021-07-02] MEDS: LIDOCAINE 5% (LIDODERM) PATCH TD SCH ×2 (06:15→06:16)
[2021-07-02 06:28] LABS: ALBUMIN 3.2 GM/DL (3.2-5.2); CALCIUM LEVEL 9.5 MG/DL (8.8-10.2); CREATININE FOR GFR 1.23 MG/DL (0.70-1.30); PHOSPHORUS LEVEL 4.1 MG/DL (2.5-4.9); POTASSIUM SERUM 4.1 MEQ/L (3.5-5.1)
[2021-07-02 06:36] VITALS: BP 148/61
[2021-07-02] MEDS: SYMBICORT 160/4.5MCG INHALER 6GM INH SCH ×2 (07:24→17:46)
[2021-07-02] MEDS: COMBIVENT RESPIMAT 100-20MCG INHALER 4GM INH SCH ×3 (07:24→17:46)
[2021-07-02] MEDS: GABAPENTIN 100 MG CAP PO SCH ×3 (09:19→20:29)
[2021-07-02] MEDS: ASPIRIN 81MG ENTERIC TABLET PO SCH (09:19)
[2021-07-02] MEDS: DOCUSATE SODIUM 100MG CAPSULE PO SCH ×2 (09:19→20:30)
[2021-07-02] MEDS: OMEGA-3 1000MG CAPSULE PO SCH (09:19)
[2021-07-02] MEDS: PANTOPRAZOLE 40MG TAB (PROTONIX) PO SCH (09:19)
[2021-07-02] MEDS: ACETAMINOPHEN 500 MG TAB PO SCH ×3 (09:20→20:29)
[2021-07-02] MEDS: PRAVASTATIN 20 MG TAB PO SCH (09:20)
[2021-07-02] MEDS: TORSEMIDE 10 MG TABLET PO SCH ×2 (09:20→16:48)
[2021-07-02] MEDS: CLOPIDOGREL 75 MG TAB PO SCH (09:20)
[2021-07-02] MEDS: ATENOLOL 12.5MG PER 1/2 TABLET PO SCH (09:21)
[2021-07-02] MEDS: ENOXAPARIN 40MG/0.4ML SYRINGE (J1650 PER 10MG) SC SCH (09:22)
[2021-07-02] MEDS: REMEDY PHYTOPLEX Z-GUARD PASTE 113GM TUBE (FROM STOREROOM PRODUCT) TOP SCH ×3 (09:23→20:30)
--- NOTE | 2021-07-02 10:25 | IPNPDOC ---
PM&R Progress Note DATE OF SERVICE: Jul 02, 2021 Centralized Traffic Control Operator Progress Note Subjective: Patient seen in his room reporting he cannot recall if the baclofen he got on Friday helped his right side pain and was agreeable to trying another dose now. REVIEW OF SYSTEMS: The following is a completed review of systems and has been reviewed. Review of systems otherwise unremarkable. PAIN: right ankle pain, right mid-back pain EYES: No recent vision changes EARS, NOSE, & THROAT: +deaf CARDIOVASCULAR: Denies chest pain or palpitations PULMONARY: Denies shortness of breath GASTROINTESTINAL: Denies constipation/diarrhea GENITOURINARY: no dysuria MUSCULOSKELETAL:+generalized weakness, right fibular fracture NEUROLOGICAL: denies paresthesias HEMATOLOGICAL: denies easy bruising SKIN: LE wounds PSYCHIATRIC: Unremarkable All other review of systems found to be negative. PHYSICAL EXAMINATION: VITAL SIGNS: Please see below. GENERAL: Pleasant and cooperative. No acute distress. HEENT: PERRL. Extraocular movements intact. Clear conjunctiva CARDIOVASCULAR: Regular rate and rhythm. No murmurs, rubs, or gallops LUNGS: Clear to auscultation bilaterally. No wheezes. No rhonchi ABDOMEN: Soft, nontender, nondistended. Positive bowel sounds. Normal active bowel sounds NEUROLOGICAL: Cranial nerves II through XII grossly intact. Sensation grossly intact able to follow commands and answer questions appropriately (using pad and pen) EXTREMITIES: 5\5 strength bilateral upper extremities. 5\5 strength right lower extremity. 5/5 strength in left lower extremity. +bilat LE edema (improving) right ankle TTP lateral malleoli, no instability, edematous throughout foot/ankle/calf, no warmth to touch (swelling improved) TTP right sided external obliques origin, no CVA tenderness SKIN: bilat LE venous stasis changes, left foot with no exudative ulcers ASSESSMENT:81-year-old M with past medical history of PAD, CHF who presents status post weakness in setting of sepsis due to LE cellulitis PLAN: 1. Rehab- PT/OT- advance mobility and ADLs, strengthen/stretch/maintain ROM all 4 limbs 2. Cardiac- diastolic CHF with recent exacerbation, fluid restrict, daily weights, lasix (d/c'd for now due to CHERI pending renal eval) -HTN cont BP meds -PAD- cont ASA and Plavix -HLD- statin -medicine consulted to assist in management 3. Resp- monitor for infection, former smoker with restrictive lung disease- cont combivent and symbicort 4. GI ppx- Protonix 5. DVT ppx- lovenox 6. ID- s/p course of antibiotics for LE cellulitis, monitor 7. Pain- Tylenol and oxycodone -right ankle pain- MRI on 06-22-21 confirmed non-displaced distal fibular fracture with ankle sprain, discussed case with Dr. Matta who recommends NWB for at least 6 weeks, and to consider using Aircast for support/compression, CAM boot not advised due to LE venous stasis and susceptibility to wounds, discussed with ortho ok for patient to be PWB for stairs in order to access his home and bathroom transfers only -f/u ortho outpatient -right sided mid-back pain likely muscle strain cont lidoderm patch, rib XR ordered and negative for fracture, cont baclofen for muscle spasm as pain most prominent at origin of external obliques 8. Skin- LE wounds please see dressing changes 9. Renal- Patient with CHERI and significant LE edema, which has improved since renal recs and intervention- appreciated 10. Endo- patient on ISS, finger sticks all low, recent A1C 5.9%, patient does not appear to be diabetic at this time, will c/u to monitor FS and may d/c while here 11. Dispo- 07-05-21 to home, home eval set up for today, patient will need to be w/c level given newly identified ankle fracture Allergies Coded Allergies: No Known Allergies (Verified , 03/25/18) Vital Signs Vital Signs Date Time Temp Pulse Resp B/P (MAP) Pulse Ox O2 Delivery O2 Flow Rate FiO2 07/02/21 09:21 64 154/70 07/02/21 06:36 97.1 18 97 Room Air Laboratory Data CBC/BMP Laboratory Tests 07/02/21 05:19 Labs 24H Laboratory Tests 2 07/02/21 05:19: Anion Gap 6L, Glomerular Filtration Rate 60.0, Calcium Level 9.5, Phosphorus Level 4.1, Albumin 3.2 Current Medications Current Medications Current Medications Medications (Trade) Dose Ordered Sig/Geovany Route PRN Reason Start Time Stop Time Status Last Admin Dose Admin Acetaminophen (Tylenol Tab) 1,000 mg TID PO 06/19/21 21:00 07/02/21 09:20 Albuterol/ Ipratropium (Combivent Respimat 100-20mcg) 1 puff RTID INH 06/19/21 20:00 07/02/21 07:24 Amlodipine Besylate (Norvasc) 5 mg DAILY PO 06/23/21 09:00 06/23/21 11:57 DC 06/23/21 08:48 Aspirin (Ecotrin) 81 mg DAILY PO 06/20/21 09:00 07/02/21 09:19 Atenolol (Tenormin) 12.5 mg DAILY PO 06/21/21 09:00 07/02/21 09:21 Atenolol (Tenormin) 25 mg DAILY PO 06/20/21 09:00 06/20/21 17:09 DC 06/20/21 09:47 Baclofen (Lioresal) 5 mg BIDP PRN PO muscle spasm 06/28/21 16:25 06/29/21 15:39 DC 06/29/21 15:14 Baclofen (Lioresal) 5 mg TID PRN PO back muscle spasm 06/29/21 21:00 Bisacodyl (Dulcolax Suppository) 10 mg DAILYPRN PRN [place] CONSTIPATION 06/19/21 15:25 Budesonide/ Formoterol Fumarate (Symbicort 160/ 4.5mcg) 2 puff RBID INH 06/19/21 20:00 07/02/21 07:24 Clopidogrel Bisulfate (PLAVix) 75 mg DAILY PO 06/20/21 09:00 07/02/21 09:20 Dextrose (Dextrose 50%) 25 ml ASDIRECTED PRN IV SEE LABEL COMMENTS 06/20/21 17:10 Docusate Sodium (Colace) 100 mg BID PO 06/19/21 21:00 07/02/21 09:19 Emollient Cream (Vanicream) daily per wound care instructions DAILY TOP 06/21/21 09:00 06/26/21 09:10 DC 06/25/21 08:12 Emollient Cream (Vanicream) daily per wound care instructions DAILY@1700 TOP 06/26/21 17:00 07/01/21 14:35 Enoxaparin Sodium (Lovenox) 40 mg DAILY SC 06/20/21 09:00 07/02/21 09:22 Fish Oil ([place]-3 (1000mg)) 1 cap DAILY PO 06/20/21 09:00 07/02/21 09:19 Furosemide (Lasix) 20 mg BID@09,17 PO 06/21/21 13:30 06/21/21 13:59 DC Furosemide (Lasix) 40 mg DAILY PO 06/20/21 09:00 06/22/21 09:28 DC 06/22/21 08:33 Gabapentin (Neurontin) 100 mg TID PO 06/23/21 16:00 06/25/21 13:19 DC 06/25/21 08:10 Gabapentin (Neurontin) 200 mg TID PO 06/25/21 16:00 07/02/21 09:19 Glucagon (Glucagon) 1 mg ASDIRECTED PRN SC SEE LABEL COMMENTS 06/20/21 17:10 Glucose (Glucose) 16 GM ASDIRECTED PRN PO SEE LABEL COMMENTS 06/20/21 17:10 Home Med (Home Med List Complete!) ASDIRECTED XX 06/26/21 07:35 06/26/21 07:38 DC Hydralazine HCl (Apresoline) 25 mg BID PO 06/28/21 21:00 06/29/21 12:49 DC 06/29/21 10:18 Hydralazine HCl (Apresoline) 25 mg TID PO 06/29/21 16:00 06/29/21 17:43 DC 06/29/21 17:31 Hydralazine HCl (Apresoline) 25 mg TID@0600,1400,2200 PO 06/29/21 22:00 07/02/21 06:14 Insulin Human Lispro (HumaLOG INSULIN) SEE PROTOCOL TABLE AC SC 06/20/21 17:30 06/22/21 11:37 DC 06/22/21 08:31 Insulin Human Lispro (HumaLOG INSULIN) SEE PROTOCOL TABLE QHS SC 06/20/21 21:00 06/22/21 11:37 DC Latanoprost (Xalatan 0.005% Op Soln) 1 drop QHS OU 06/19/21 21:00 07/01/21 21:35 Lidocaine (Lidoderm Patch) 1 patch DAILY TD 06/27/21 09:00 06/27/21 11:17 DC Lidocaine (Lidoderm Patch) 1 patch DAILY@0700 TD 06/27/21 07:00 07/02/21 06:16 Lidocaine (Lidoderm Patch) 1 patch DAILY@0700 TD 06/21/21 07:00 07/02/21 06:15 Lisinopril (Prinivil) 20 mg DAILY PO 06/21/21 09:00 06/22/21 09:27 DC 06/22/21 08:34 Magnesium Sulfate (Epsom Salt) daily at 5pm soak bilate... DAILY@1700 TOP 06/20/21 17:00 07/01/21 14:34 Miscellaneous (Unresolved Clarification Entry) SEE LABEL COMMENTS DAILY XX 07/01/21 09:00 Non-Formulary Medication ( See Comment Field Below ) REMOVE LIDODERM PATC... DAILY@1700 XX 06/21/21 17:00 07/01/21 14:35 Non-Formulary Medication ( See Comment Field Below ) REMOVE LIDODERM PATCH DAILY@21 XX 06/27/21 21:00 06/27/21 11:19 DC Oxycodone HCl (Roxicodone, Oxyir) 5 mg Q4HP PRN PO MODERATE PAIN (PS 5-7) 06/19/21 15:25 06/23/21 12:22 DC 06/23/21 08:45 Oxycodone HCl (Roxicodone, Oxyir) 7.5 mg Q4HP PRN PO PAIN LEVEL 6-10 06/23/21 12:25 06/26/21 00:44 Pantoprazole Sodium (Protonix) 40 mg DAILY PO 06/20/21 09:00 07/02/21 09:19 Pravastatin Sodium (Pravachol) 40 mg DAILY PO 06/20/21 09:00 07/02/21 09:20 Pravastatin Sodium (Pravachol) 40 mg QHS PO 06/19/21 21:00 06/19/21 16:56 DC Senna (Senokot) 1 tab QHS PO 06/19/21 21:00 07/01/21 21:34 Torsemide (Demadex) 10 mg BID@0900,1700 PO 07/01/21 17:00 07/02/21 09:20 Torsemide (Demadex) 10 mg DAILY PO 06/27/21 09:00 07/01/21 11:33 DC 07/01/21 08:28 Torsemide (Demadex) 20 mg BID@09,17 PO 06/23/21 09:00 06/24/21 20:44 DC 06/24/21 17:04 Torsemide (Demadex) 20 mg DAILY PO 06/26/21 09:00 06/25/21 18:22 AMADOR CARLISLE MD Jul 02, 2021 10:25
[2021-07-02] MEDS: BACLOFEN 5MG PER 1/2 TABLET PO PRN ×2 (14:42→20:29)
[2021-07-02 15:30] VITALS: BP 139/62
[2021-07-02] MEDS: VANICREAM MOISTURIZING SKIN CREAM 113GM TUBE TOP SCH (16:49)
[2021-07-02] MEDS: **NOTE PATIENT COMMENT** MISC XX SCH (16:49)
[2021-07-02 20:00] VITALS: BP 120/62
[2021-07-02] MEDS: SENNA 8.6 MG TAB (SENOKOT) PO SCH (20:30)
[2021-07-02] MEDS: LATANOPROST 0.005% OPHTH SOLN 2.5 ML OU SCH (20:30)
--- NOTE | 2021-07-02 22:07 | IPNPDOC ---
Subjective CC/HPI The patient is a 81-year-old male admitted with a reason for visit of Peripheral Artery Disease. Events since last encounter Pt was seen in the afternoon, full time staff interpreter was used. Edema is improving. Renal function is stable, General: Denies: ROS Unobtainable, Chills, Night Sweats, Fatigue, Malaise, Normal Appetite, Other Symptoms Constitutional: Denies: Chills, Fever, Malaise, Night Sweats, Weakness, Fatigue, Weight Loss, Lethargy, Other Eyes: Denies: Pain, Vision change, Conjunctivae inflammation, Eyelid inflammation, Redness, Other ENT: Denies: Head Aches, Ear Pain, Dysphagia, Sinus Congestion, Post Nasal Drip, Sore Throat, Epistaxis, Other Symptoms Skin: Denies: Rash, Lesions, Jaundice, Bruising, Itching, Dry, Breakdown, Nail Changes, Other Pulmonary: Denies: Dyspnea, Cough, Pleuritic Chest Pain, Other Symptoms Cardiovascular: Denies: Chest Pain, Palpitations, Orthopnea, Paroxysmal Noc. Dyspnea, Edema, Lt Headedness, Other Symptoms Gastrointestinal: Denies: Nausea, Vomiting, Abdominal Pain, Diarrhea, Constipation, Melena, Hematochezia, Other Symptoms Genitourinary: Denies: Dysuria, Frequency, Incontinence, Hematuria, Retention, Other Symptoms Hematologic: Denies: Bruising, Bleeding Excessively, Petecchia, Purpura, Enlarged Lymph Nodes, Other Hematologic Endocrine: Denies: Polydipsia, Polyphagia, Polyuria, Heat Intolerance, Cold Intolerance, Other Endocrine Sx Musculoskeletal: Reports: Joint Pain (Rt ankle) Neurological: Denies: Weakness, Numbness Psych: Reports: Mood Normal Objective Physical Examination General Exam: Alert, No Acute Distress; No: Cooperative, Mild Distress, Moderate Distress, Severe Distress, Other EYE EXAM: PERRLA, Conjunctiva & lids normal, EOMI ENT EXAM: Atraumatic, Mucous membr. moist/pink Neck Exam: Supple, JVD Chest Exam: Clear to auscultation, Normal air movement Heart Exam: Rate Normal, Normal S1, Normal S2 ABDOMEN EXAM: Normal bowel sounds, Soft; No: Tenderness Extremity Exam: Edema (Bilat 1+ edema, Rt foot brace) Skin Exam: No: Rash, Breakdown Neuro Exam: Normal Gait, Other (Sign language) Psych Exam: Mental status NL, Mood NL Vital Signs/I&O Vital Signs Date Time Temp Pulse Resp B/P (MAP) Pulse Ox O2 Delivery O2 Flow Rate FiO2 07/02/21 15:42 139/62 07/02/21 15:30 97.8 49 18 93 Room Air I&O- Last 24 Hours up to 6 AM 07/02/21 06:00 Intake Total 920 ml Output Total 1450 ml Balance -530 ml Laboratory Data Labs 24H Laboratory Tests 2 07/02/21 05:19: Anion Gap 6L, Glomerular Filtration Rate 60.0, Calcium Level 9.5, Phosphorus Level 4.1, Albumin 3.2 CBC/BMP Laboratory Tests 07/02/21 05:19 Current Medications Current Medications Medications (Trade) Dose Ordered Sig/Geovany Route PRN Reason Start Time Stop Time Status Last Admin Dose Admin Acetaminophen (Tylenol Tab) 1,000 mg TID PO 06/19/21 21:00 07/02/21 20:29 Albuterol/ Ipratropium (Combivent Respimat 100-20mcg) 1 puff RTID INH 06/19/21 20:00 07/02/21 17:46 Amlodipine Besylate (Norvasc) 5 mg DAILY PO 06/23/21 09:00 06/23/21 11:57 DC 06/23/21 08:48 Aspirin (Ecotrin) 81 mg DAILY PO 06/20/21 09:00 07/02/21 09:19 Atenolol (Tenormin) 12.5 mg DAILY PO 06/21/21 09:00 07/02/21 09:21 Atenolol (Tenormin) 25 mg DAILY PO 06/20/21 09:00 06/20/21 17:09 DC 06/20/21 09:47 Baclofen (Lioresal) 5 mg BIDP PRN PO muscle spasm 06/28/21 16:25 06/29/21 15:39 DC 06/29/21 15:14 Baclofen (Lioresal) 5 mg TID PRN PO back muscle spasm 06/29/21 21:00 07/02/21 20:29 Bisacodyl (Dulcolax Suppository) 10 mg DAILYPRN PRN [place] CONSTIPATION 06/19/21 15:25 Budesonide/ Formoterol Fumarate (Symbicort 160/ 4.5mcg) 2 puff RBID INH 06/19/21 20:00 07/02/21 17:46 Clopidogrel Bisulfate (PLAVix) 75 mg DAILY PO 06/20/21 09:00 07/02/21 09:20 Dextrose (Dextrose 50%) 25 ml ASDIRECTED PRN IV SEE LABEL COMMENTS 06/20/21 17:10 Docusate Sodium (Colace) 100 mg BID PO 06/19/21 21:00 07/02/21 20:30 Emollient Cream (Vanicream) daily per wound care instructions DAILY TOP 06/21/21 09:00 06/26/21 09:10 DC 06/25/21 08:12 Emollient Cream (Vanicream) daily per wound care instructions DAILY@1700 TOP 06/26/21 17:00 07/02/21 16:49 Enoxaparin Sodium (Lovenox) 40 mg DAILY SC 06/20/21 09:00 07/02/21 09:22 Fish Oil ([place]-3 (1000mg)) 1 cap DAILY PO 06/20/21 09:00 07/02/21 09:19 Furosemide (Lasix) 20 mg BID@09,17 PO 06/21/21 13:30 06/21/21 13:59 DC Furosemide (Lasix) 40 mg DAILY PO 06/20/21 09:00 06/22/21 09:28 DC 06/22/21 08:33 Gabapentin (Neurontin) 100 mg TID PO 06/23/21 16:00 06/25/21 13:19 DC 06/25/21 08:10 Gabapentin (Neurontin) 200 mg TID PO 06/25/21 16:00 07/02/21 20:29 Glucagon (Glucagon) 1 mg ASDIRECTED PRN SC SEE LABEL COMMENTS 06/20/21 17:10 Glucose (Glucose) 16 GM ASDIRECTED PRN PO SEE LABEL COMMENTS 06/20/21 17:10 Home Med (Home Med List Complete!) ASDIRECTED XX 06/26/21 07:35 06/26/21 07:38 DC Hydralazine HCl (Apresoline) 25 mg BID PO 06/28/21 21:00 06/29/21 12:49 DC 06/29/21 10:18 Hydralazine HCl (Apresoline) 25 mg TID PO 06/29/21 16:00 06/29/21 17:43 DC 06/29/21 17:31 Hydralazine HCl (Apresoline) 25 mg TID@0600,1400,2200 PO 06/29/21 22:00 07/02/21 15:42 Insulin Human Lispro (HumaLOG INSULIN) SEE PROTOCOL TABLE AC SC 06/20/21 17:30 06/22/21 11:37 DC 06/22/21 08:31 Insulin Human Lispro (HumaLOG INSULIN) SEE PROTOCOL TABLE QHS SC 06/20/21 21:00 06/22/21 11:37 DC Latanoprost (Xalatan 0.005% Op Soln) 1 drop QHS OU 06/19/21 21:00 07/02/21 20:30 Lidocaine (Lidoderm Patch) 1 patch DAILY TD 06/27/21 09:00 06/27/21 11:17 DC Lidocaine (Lidoderm Patch) 1 patch DAILY@0700 TD 06/27/21 07:00 07/02/21 06:16 Lidocaine (Lidoderm Patch) 1 patch DAILY@0700 TD 06/21/21 07:00 07/02/21 06:15 Lisinopril (Prinivil) 20 mg DAILY PO 06/21/21 09:00 06/22/21 09:27 DC 06/22/21 08:34 Magnesium Sulfate (Epsom Salt) daily at 5pm soak bilate... DAILY@1700 TOP 06/20/21 17:00 07/02/21 14:48 DC 07/01/21 14:34 Miscellaneous (Unresolved Clarification Entry) SEE LABEL COMMENTS DAILY XX 07/01/21 09:00 07/02/21 12:14 DC Non-Formulary Medication ( See Comment Field Below ) REMOVE LIDODERM PATC... DAILY@1700 XX 06/21/21 17:00 07/02/21 16:49 Non-Formulary Medication ( See Comment Field Below ) REMOVE LIDODERM PATCH DAILY@21 XX 06/27/21 21:00 06/27/21 11:19 DC Oxycodone HCl (Roxicodone, Oxyir) 5 mg Q4HP PRN PO MODERATE PAIN (PS 5-7) 06/19/21 15:25 06/23/21 12:22 DC 06/23/21 08:45 Oxycodone HCl (Roxicodone, Oxyir) 7.5 mg Q4HP PRN PO PAIN LEVEL 6-10 06/23/21 12:25 06/26/21 00:44 Pantoprazole Sodium (Protonix) 40 mg DAILY PO 06/20/21 09:00 07/02/21 09:19 Pravastatin Sodium (Pravachol) 40 mg DAILY PO 06/20/21 09:00 07/02/21 09:20 Pravastatin Sodium (Pravachol) 40 mg QHS PO 06/19/21 21:00 06/19/21 16:56 DC Senna (Senokot) 1 tab QHS PO 06/19/21 21:00 07/01/21 21:34 Torsemide (Demadex) 10 mg BID@0900,1700 PO 07/01/21 17:00 07/02/21 16:48 Torsemide (Demadex) 10 mg DAILY PO 06/27/21 09:00 07/01/21 11:33 DC 07/01/21 08:28 Torsemide (Demadex) 20 mg BID@09,17 PO 06/23/21 09:00 06/24/21 20:44 DC 06/24/21 17:04 Torsemide (Demadex) 20 mg DAILY PO 06/26/21 09:00 06/25/21 18:22 DC Allergies Coded Allergies: No Known Allergies (Verified , 03/25/18) Assessment/Plan Date Seen The patient was seen on 07/02/21 at 22:02. Plan / VTE VTE Prophylaxis Ordered?: Yes Plan Orders past 48 Hours Orders Problem Drawer In [place] (Unresolved Clarific (07/01/21 09:00) Torsemide (Demadex) (07/01/21 17:00) Renal Profile (07/02/21 06:00) Cbc With Differential (07/04/21 06:00) Basic Metabolic Profile (07/04/21 06:00) Apply/Change Dressing (07/02/21 14:46) Plan Text CHERI HFpEF with grade 1 diastolic dysfunction Leg edema Hypertension Continue low dose diuretic for now. Monitor renal function. improving edema. MILTON DANIELS MD Jul 02, 2021 22:07
[2021-07-03] MEDS: **hydrALAZINE HCL** 25 MG TAB PO SCH ×3 (05:59→21:11)
[2021-07-03] MEDS: LIDOCAINE 5% (LIDODERM) PATCH TD SCH ×2 (05:59→06:00)
[2021-07-03 06:00] VITALS: BP 148/67
[2021-07-03] MEDS: COMBIVENT RESPIMAT 100-20MCG INHALER 4GM INH SCH ×3 (08:00→20:00)
[2021-07-03] MEDS: SYMBICORT 160/4.5MCG INHALER 6GM INH SCH ×2 (08:07→20:14)
[2021-07-03] MEDS: TORSEMIDE 10 MG TABLET PO SCH ×2 (09:18→16:03)
[2021-07-03] MEDS: ENOXAPARIN 40MG/0.4ML SYRINGE (J1650 PER 10MG) SC SCH (09:18)
[2021-07-03] MEDS: PANTOPRAZOLE 40MG TAB (PROTONIX) PO SCH (09:18)
[2021-07-03] MEDS: DOCUSATE SODIUM 100MG CAPSULE PO SCH ×2 (09:18→20:54)
[2021-07-03] MEDS: ASPIRIN 81MG ENTERIC TABLET PO SCH (09:18)
[2021-07-03] MEDS: OMEGA-3 1000MG CAPSULE PO SCH (09:18)
[2021-07-03] MEDS: BACLOFEN 5MG PER 1/2 TABLET PO PRN (09:18)
[2021-07-03] MEDS: CLOPIDOGREL 75 MG TAB PO SCH (09:18)
[2021-07-03] MEDS: ACETAMINOPHEN 500 MG TAB PO SCH ×3 (09:19→20:54)
[2021-07-03] MEDS: PRAVASTATIN 20 MG TAB PO SCH (09:19)
[2021-07-03] MEDS: GABAPENTIN 100 MG CAP PO SCH (09:19)
[2021-07-03] MEDS: ATENOLOL 12.5MG PER 1/2 TABLET PO SCH (09:20)
[2021-07-03] MEDS: REMEDY PHYTOPLEX Z-GUARD PASTE 113GM TUBE (FROM STOREROOM PRODUCT) TOP SCH ×3 (09:20→20:55)
[2021-07-03] MEDS: ANALGESIC BALM CRM 3OZ TOP SCH ×3 (11:49→20:55)
--- NOTE | 2021-07-03 13:04 | IPNPDOC ---
Subjective CC/HPI The patient is a 81-year-old male admitted with a reason for visit of Peripheral Artery Disease. Events since last encounter Seen on rehab floor today, sitting in sofa, Writing used to communicate. Reports Rt ankle pain is improving. General: Reports: ROS Unobtainable; Denies: Chills, Night Sweats, Fatigue, Malaise, Normal Appetite, Other Symptoms Constitutional: Denies: Chills, Fever, Malaise, Night Sweats, Weakness, Fatigue, Weight Loss, Lethargy, Other Eyes: Denies: Pain, Vision change, Conjunctivae inflammation, Eyelid inflammation, Redness, Other ENT: Denies: Head Aches, Ear Pain, Dysphagia, Sinus Congestion, Post Nasal Drip, Sore Throat, Epistaxis, Other Symptoms Skin: Denies: Rash, Lesions, Jaundice, Bruising, Itching, Dry, Breakdown, Nail Changes, Other Pulmonary: Denies: Dyspnea, Cough, Pleuritic Chest Pain, Other Symptoms Cardiovascular: Denies: Chest Pain, Palpitations, Orthopnea, Paroxysmal Noc. Dyspnea, Edema, Lt Headedness, Other Symptoms Gastrointestinal: Denies: Nausea, Vomiting, Abdominal Pain, Diarrhea, Constipation, Melena, Hematochezia, Other Symptoms Genitourinary: Denies: Dysuria, Frequency, Incontinence, Hematuria, Retention, Other Symptoms Hematologic: Denies: Bruising, Bleeding Excessively, Petecchia, Purpura, Enlarged Lymph Nodes, Other Hematologic Musculoskeletal: Reports: Joint Pain Neurological: Denies: Weakness, Numbness Psych: Reports: Mood Normal Objective Physical Examination General Exam: Alert, No Acute Distress, Other (Only communicates with writing or sign language); No: Cooperative, Mild Distress, Moderate Distress, Severe Distress EYE EXAM: PERRLA, Conjunctiva & lids normal, EOMI ENT EXAM: Atraumatic, Mucous membr. moist/pink Neck Exam: Supple, JVD Chest Exam: Clear to auscultation, Normal air movement Heart Exam: Rate Normal, Normal S1, Normal S2 ABDOMEN EXAM: Normal bowel sounds, Soft; No: Tenderness Extremity Exam: Edema (Bilat 1+ edema, Rt foot brace) Skin Exam: No: Rash, Breakdown Neuro Exam: Normal Gait, Other (Sign language) Psych Exam: Mental status NL, Mood NL Vital Signs/I&O Vital Signs Date Time Temp Pulse Resp B/P (MAP) Pulse Ox O2 Delivery O2 Flow Rate FiO2 07/03/21 09:20 68 132/67 07/03/21 06:00 98.0 18 98 Room Air I&O- Last 24 Hours up to 6 AM 07/03/21 06:00 Intake Total 1480 ml Output Total 2150 ml Balance -670 ml Current Medications Current Medications Medications (Trade) Dose Ordered Sig/Geovany Route PRN Reason Start Time Stop Time Status Last Admin Dose Admin Acetaminophen (Tylenol Tab) 1,000 mg TID PO 06/19/21 21:00 07/03/21 09:19 Albuterol/ Ipratropium (Combivent Respimat 100-20mcg) 1 puff RTID INH 06/19/21 20:00 07/02/21 17:46 Amlodipine Besylate (Norvasc) 5 mg DAILY PO 06/23/21 09:00 06/23/21 11:57 DC 06/23/21 08:48 Aspirin (Ecotrin) 81 mg DAILY PO 06/20/21 09:00 07/03/21 09:18 Atenolol (Tenormin) 12.5 mg DAILY PO 06/21/21 09:00 07/03/21 09:20 Atenolol (Tenormin) 25 mg DAILY PO 06/20/21 09:00 06/20/21 17:09 DC 06/20/21 09:47 Baclofen (Lioresal) 5 mg BIDP PRN PO muscle spasm 06/28/21 16:25 06/29/21 15:39 DC 06/29/21 15:14 Baclofen (Lioresal) 5 mg TID PO 07/03/21 16:00 Baclofen (Lioresal) 5 mg TID PRN PO back muscle spasm 06/29/21 21:00 07/03/21 10:37 DC 07/03/21 09:18 Bisacodyl (Dulcolax Suppository) 10 mg DAILYPRN PRN [place] CONSTIPATION 06/19/21 15:25 Budesonide/ Formoterol Fumarate (Symbicort 160/ 4.5mcg) 2 puff RBID INH 06/19/21 20:00 07/03/21 08:07 Clopidogrel Bisulfate (PLAVix) 75 mg DAILY PO 06/20/21 09:00 07/03/21 09:18 Dextrose (Dextrose 50%) 25 ml ASDIRECTED PRN IV SEE LABEL COMMENTS 06/20/21 17:10 Docusate Sodium (Colace) 100 mg BID PO 06/19/21 21:00 07/03/21 09:18 Emollient Cream (Vanicream) daily per wound care instructions DAILY TOP 06/21/21 09:00 06/26/21 09:10 DC 06/25/21 08:12 Emollient Cream (Vanicream) daily per wound care instructions DAILY@1700 TOP 06/26/21 17:00 07/02/21 16:49 Enoxaparin Sodium (Lovenox) 40 mg DAILY SC 06/20/21 09:00 07/03/21 09:18 Fish Oil ([place]-3 (1000mg)) 1 cap DAILY PO 06/20/21 09:00 07/03/21 09:18 Furosemide (Lasix) 20 mg BID@09,17 PO 06/21/21 13:30 06/21/21 13:59 DC Furosemide (Lasix) 40 mg DAILY PO 06/20/21 09:00 06/22/21 09:28 DC 06/22/21 08:33 Gabapentin (Neurontin) 100 mg TID PO 06/23/21 16:00 06/25/21 13:19 DC 06/25/21 08:10 Gabapentin (Neurontin) 200 mg TID PO 06/25/21 16:00 07/03/21 10:37 DC 07/03/21 09:19 Gabapentin (Neurontin) 400 mg TID PO 07/03/21 16:00 Glucagon (Glucagon) 1 mg ASDIRECTED PRN SC SEE LABEL COMMENTS 06/20/21 17:10 Glucose (Glucose) 16 GM ASDIRECTED PRN PO SEE LABEL COMMENTS 06/20/21 17:10 Home Med (Home Med List Complete!) ASDIRECTED XX 06/26/21 07:35 06/26/21 07:38 DC Hydralazine HCl (Apresoline) 25 mg BID PO 06/28/21 21:00 06/29/21 12:49 DC 06/29/21 10:18 Hydralazine HCl (Apresoline) 25 mg TID PO 06/29/21 16:00 06/29/21 17:43 DC 06/29/21 17:31 Hydralazine HCl (Apresoline) 25 mg TID@0600,1400,2200 PO 06/29/21 22:00 07/03/21 05:59 Insulin Human Lispro (HumaLOG INSULIN) SEE PROTOCOL TABLE AC SC 06/20/21 17:30 06/22/21 11:37 DC 06/22/21 08:31 Insulin Human Lispro (HumaLOG INSULIN) SEE PROTOCOL TABLE QHS SC 06/20/21 21:00 06/22/21 11:37 DC Latanoprost (Xalatan 0.005% Op Soln) 1 drop QHS OU 06/19/21 21:00 07/02/21 20:30 Lidocaine (Lidoderm Patch) 1 patch DAILY TD 06/27/21 09:00 06/27/21 11:17 DC Lidocaine (Lidoderm Patch) 1 patch DAILY@0700 TD 06/27/21 07:00 07/03/21 10:37 DC 07/03/21 06:00 Lidocaine (Lidoderm Patch) 1 patch DAILY@0700 TD 06/21/21 07:00 07/03/21 05:59 Lisinopril (Prinivil) 20 mg DAILY PO 06/21/21 09:00 06/22/21 09:27 DC 06/22/21 08:34 Magnesium Sulfate (Epsom Salt) daily at 5pm soak bilate... DAILY@1700 TOP 06/20/21 17:00 07/02/21 14:48 DC 07/01/21 14:34 Menthol/Methyl Salicylate ([place] Cream) right side of abdomen just un... TID TOP 07/03/21 09:00 Miscellaneous (Unresolved Clarification Entry) SEE LABEL COMMENTS DAILY XX 07/01/21 09:00 07/02/21 12:14 DC Non-Formulary Medication ( See Comment Field Below ) REMOVE LIDODERM PATC... DAILY@1700 XX 06/21/21 17:00 07/02/21 16:49 Non-Formulary Medication ( See Comment Field Below ) REMOVE LIDODERM PATCH DAILY@21 XX 06/27/21 21:00 06/27/21 11:19 DC Oxycodone HCl (Roxicodone, Oxyir) 5 mg Q4HP PRN PO MODERATE PAIN (PS 5-7) 06/19/21 15:25 06/23/21 12:22 DC 06/23/21 08:45 Oxycodone HCl (Roxicodone, Oxyir) 7.5 mg Q4HP PRN PO PAIN LEVEL 6-10 06/23/21 12:25 06/26/21 00:44 Pantoprazole Sodium (Protonix) 40 mg DAILY PO 06/20/21 09:00 07/03/21 09:18 Pravastatin Sodium (Pravachol) 40 mg DAILY PO 06/20/21 09:00 07/03/21 09:19 Pravastatin Sodium (Pravachol) 40 mg QHS PO 06/19/21 21:00 06/19/21 16:56 DC Senna (Senokot) 1 tab QHS PO 06/19/21 21:00 07/01/21 21:34 Torsemide (Demadex) 10 mg BID@0900,1700 PO 07/01/21 17:00 07/03/21 09:18 Torsemide (Demadex) 10 mg DAILY PO 06/27/21 09:00 07/01/21 11:33 DC 07/01/21 08:28 Torsemide (Demadex) 20 mg BID@09,17 PO 06/23/21 09:00 06/24/21 20:44 DC 06/24/21 17:04 Torsemide (Demadex) 20 mg DAILY PO 06/26/21 09:00 06/25/21 18:22 DC Allergies Coded Allergies: No Known Allergies (Verified , 03/25/18) Assessment/Plan Date Seen The patient was seen on 07/03/21 at 13:00. Plan / VTE VTE Prophylaxis Ordered?: Yes Plan Orders past 48 Hours Orders Renal Profile (07/02/21 06:00) Cbc With Differential (07/04/21 06:00) Basic Metabolic Profile (07/04/21 06:00) Apply/Change Dressing (07/02/21 14:46) Baclofen (Lioresal) (07/03/21 16:00) Menthol/Methyl Salicylate Crm (Bengay Cr (07/03/21 09:00) K Pad (07/03/21 10:34) Gabapentin (Neurontin) (07/03/21 16:00) Plan Text CHERI HFpEF with grade 1 diastolic dysfunction Leg edema Hypertension Continue low dose diuretic for now. check lab in AM to monitor renal function. improving edema. MILTON DANIELS MD Jul 03, 2021 13:04
[2021-07-03 14:00] VITALS: BP 121/59
[2021-07-03] MEDS: BACLOFEN 5MG PER 1/2 TABLET PO SCH ×2 (16:03→20:53)
[2021-07-03] MEDS: GABAPENTIN 400MG CAP PO SCH ×2 (16:03→20:54)
[2021-07-03] MEDS: **NOTE PATIENT COMMENT** MISC XX SCH (16:04)
[2021-07-03] MEDS: VANICREAM MOISTURIZING SKIN CREAM 113GM TUBE TOP SCH (16:05)
[2021-07-03 20:00] VITALS: BP 130/63
[2021-07-03] MEDS: SENNA 8.6 MG TAB (SENOKOT) PO SCH (20:54)
[2021-07-03] MEDS: LATANOPROST 0.005% OPHTH SOLN 2.5 ML OU SCH (20:55)
[2021-07-04] MEDS: **hydrALAZINE HCL** 25 MG TAB PO SCH ×3 (05:45→21:22)
[2021-07-04 06:00] VITALS: BP 130/63
[2021-07-04 06:48] LABS: BASO # 0.1 10^3/uL (0.0-0.2); BASO % 1.1 % (0.0-1.0); EOS # 0.4 10^3/uL (0.0-0.5); EOS % 6.9 % (0.0-3.0); HEMATOCRIT 37.1 % (42.0-52.0); HEMOGLOBIN 11.7 g/dl (13.5-17.5); LYMPH # 1.5 10^3/uL (1.5-5.0); LYMPH % 24.1 % (24.0-44.0); MEAN CORPUSCULAR HEMOGLOBIN 29.8 pg (27.0-33.0); MEAN CORPUSCULAR HGB CONC 31.5 g/dl (32.0-36.5); MEAN CORPUSCULAR VOLUME 94.6 fl (80.0-96.0); MONO # 0.8 10^3/uL (0.0-0.8); MONO % 13.6 % (2.0-8.0); NEUTROPHILS # 3.3 10^3/uL (1.5-8.5); NEUTROPHILS % 53.8 % (36.0-66.0); PLATELET COUNT, AUTOMATED 253 10^3/uL (150-450); RED BLOOD COUNT 3.92 10^6/uL (4.30-6.10); WHITE BLOOD COUNT 6.1 10^3/uL (4.0-10.0)
[2021-07-04 07:09] LABS: BLOOD UREA NITROGEN 24 MG/DL (7-18); CALCIUM LEVEL 9.5 MG/DL (8.8-10.2); CARBON DIOXIDE LEVEL 30 MEQ/L (21-32); CHLORIDE LEVEL 107 MEQ/L (98-107); CREATININE FOR GFR 1.18 MG/DL (0.70-1.30); GLOMERULAR FILTRATION RATE > 60.0 (>35); GLUCOSE, FASTING 118 MG/DL (70-100); POTASSIUM SERUM 4.1 MEQ/L (3.5-5.1); SODIUM LEVEL 144 MEQ/L (136-145)
[2021-07-04] MEDS: SYMBICORT 160/4.5MCG INHALER 6GM INH SCH ×2 (07:26→20:22)
[2021-07-04] MEDS: COMBIVENT RESPIMAT 100-20MCG INHALER 4GM INH SCH ×3 (07:26→20:00)
[2021-07-04] MEDS: DOCUSATE SODIUM 100MG CAPSULE PO SCH ×2 (09:00→21:00)
[2021-07-04] MEDS: PANTOPRAZOLE 40MG TAB (PROTONIX) PO SCH (09:22)
[2021-07-04] MEDS: ATENOLOL 12.5MG PER 1/2 TABLET PO SCH (09:22)
[2021-07-04] MEDS: BACLOFEN 5MG PER 1/2 TABLET PO SCH ×3 (09:23→21:23)
[2021-07-04] MEDS: TORSEMIDE 10 MG TABLET PO SCH ×2 (09:23→16:11)
[2021-07-04] MEDS: ACETAMINOPHEN 500 MG TAB PO SCH ×3 (09:23→21:23)
[2021-07-04] MEDS: ASPIRIN 81MG ENTERIC TABLET PO SCH (09:23)
[2021-07-04] MEDS: GABAPENTIN 400MG CAP PO SCH ×3 (09:23→21:23)
[2021-07-04] MEDS: CLOPIDOGREL 75 MG TAB PO SCH (09:23)
[2021-07-04] MEDS: OMEGA-3 1000MG CAPSULE PO SCH (09:23)
[2021-07-04] MEDS: PRAVASTATIN 20 MG TAB PO SCH (09:23)
[2021-07-04] MEDS: LIDOCAINE 5% (LIDODERM) PATCH TD SCH (09:24)
[2021-07-04] MEDS: ENOXAPARIN 40MG/0.4ML SYRINGE (J1650 PER 10MG) SC SCH (09:24)
[2021-07-04] MEDS: ANALGESIC BALM CRM 3OZ TOP SCH ×3 (09:25→21:24)
[2021-07-04] MEDS: REMEDY PHYTOPLEX Z-GUARD PASTE 113GM TUBE (FROM STOREROOM PRODUCT) TOP SCH ×3 (09:25→21:00)
--- NOTE | 2021-07-04 11:42 | IPNPDOC ---
PM&R Progress Note DATE OF SERVICE: Jul 03, 2021 Biological Technical Officer Progress Note Subjective: Patient seen in his room, coupon collection clerk used via [employer]. Patient stating his side pain is somewhat better and would like to try increasing his gabapentin dosing, starting a muscle rub, and taking a muscle relaxant around the clock. REVIEW OF SYSTEMS: The following is a completed review of systems and has been reviewed. Review of systems otherwise unremarkable. PAIN: right ankle pain, right mid-back pain EYES: No recent vision changes EARS, NOSE, & THROAT: +deaf CARDIOVASCULAR: Denies chest pain or palpitations PULMONARY: Denies shortness of breath GASTROINTESTINAL: Denies constipation/diarrhea GENITOURINARY: no dysuria MUSCULOSKELETAL:+generalized weakness, right fibular fracture NEUROLOGICAL: denies paresthesias HEMATOLOGICAL: denies easy bruising SKIN: LE wounds PSYCHIATRIC: Unremarkable All other review of systems found to be negative. PHYSICAL EXAMINATION: VITAL SIGNS: Please see below. GENERAL: Pleasant and cooperative. No acute distress. HEENT: PERRL. Extraocular movements intact. Clear conjunctiva CARDIOVASCULAR: Regular rate and rhythm. No murmurs, rubs, or gallops LUNGS: Clear to auscultation bilaterally. No wheezes. No rhonchi ABDOMEN: Soft, nontender, nondistended. Positive bowel sounds. Normal active bowel sounds NEUROLOGICAL: Cranial nerves II through XII grossly intact. Sensation grossly intact able to follow commands and answer questions appropriately (using pad and pen) EXTREMITIES: 5\5 strength bilateral upper extremities. 5\5 strength right lower extremity. 5/5 strength in left lower extremity. +bilat LE edema (improving) right ankle TTP lateral malleoli, no instability, edematous throughout foot/ankle/calf, no warmth to touch (swelling improved) TTP right sided external obliques origin (improving), no CVA tenderness SKIN: bilat LE venous stasis changes, left foot with no exudative ulcers ASSESSMENT:81-year-old M with past medical history of PAD, CHF who presents status post weakness in setting of sepsis due to LE cellulitis PLAN: 1. Rehab- PT/OT- advance mobility and ADLs, strengthen/stretch/maintain ROM all 4 limbs 2. Cardiac- diastolic CHF with recent exacerbation, fluid restrict, daily weights, lasix (d/c'd for now due to CHERI pending renal eval) -HTN cont BP meds -PAD- cont ASA and Plavix -HLD- statin -medicine consulted to assist in management 3. Resp- monitor for infection, former smoker with restrictive lung disease- cont combivent and symbicort 4. GI ppx- Protonix 5. DVT ppx- lovenox 6. ID- s/p course of antibiotics for LE cellulitis, monitor 7. Pain- Tylenol and oxycodone -right ankle pain- MRI on 06-22-21 confirmed non-displaced distal fibular fracture with ankle sprain, discussed case with Dr. Matta who recommends NWB for at least 6 weeks, and to consider using Aircast for support/compression, CAM boot not advised due to LE venous stasis and susceptibility to wounds, discussed with ortho ok for patient to be PWB for stairs in order to access his home and bathroom transfers only -f/u ortho outpatient -right sided mid-back pain likely muscle strain s pain most prominent at origin of external obliques, rib XR ordered and negative for fracture, cont baclofen for muscle spasm (will change to standing 5mg TID) and start bengay muscle rub, increase gabapentin dosing 8. Skin- LE wounds please see dressing changes- wounds healed 9. Renal- Patient with CHERI and significant LE edema, which has improved since renal recs and intervention- appreciated 10. Endo- patient on ISS, finger sticks all low, recent A1C 5.9%, patient does not appear to be diabetic at this time, will c/u to monitor FS and may d/c while here 11. Dispo- 07-06-21 to home, progressing towards goals Allergies Coded Allergies: No Known Allergies (Verified , 03/25/18) Vital Signs Vital Signs Date Time Temp Pulse Resp B/P (MAP) Pulse Ox O2 Delivery O2 Flow Rate FiO2 07/04/21 09:22 53 130/63 07/04/21 06:00 97.8 19 94 Room Air Laboratory Data CBC/BMP Laboratory Tests 07/04/21 06:22 Labs 24H Laboratory Tests 2 07/04/21 06:22: Immature Granulocyte % (Auto) 0.5, Neutrophils (%) (Auto) 53.8, Lymphocytes (%) (Auto) 24.1, Monocytes (%) (Auto) 13.6H, Eosinophils (%) (Auto) 6.9H, Basophils (%) (Auto) 1.1H, Neutrophils # (Auto) 3.3, Lymphocytes # (Auto) 1.5, Monocytes # (Auto) 0.8, Eosinophils # (Auto) 0.4, Basophils # (Auto) 0.1, Nucleated Red Blood Cells % (auto) 0.0, Anion Gap 7L, Glomerular Filtration Rate > 60.0, Calcium Level 9.5 Current Medications Current Medications Current Medications Medications (Trade) Dose Ordered Sig/Geovany Route PRN Reason Start Time Stop Time Status Last Admin Dose Admin Acetaminophen (Tylenol Tab) 1,000 mg TID PO 06/19/21 21:00 07/04/21 09:23 Albuterol/ Ipratropium (Combivent Respimat 100-20mcg) 1 puff RTID INH 06/19/21 20:00 07/04/21 07:26 Amlodipine Besylate (Norvasc) 5 mg DAILY PO 06/23/21 09:00 06/23/21 11:57 DC 06/23/21 08:48 Aspirin (Ecotrin) 81 mg DAILY PO 06/20/21 09:00 07/04/21 09:23 Atenolol (Tenormin) 12.5 mg DAILY PO 06/21/21 09:00 07/04/21 09:22 Atenolol (Tenormin) 25 mg DAILY PO 06/20/21 09:00 06/20/21 17:09 DC 06/20/21 09:47 Baclofen (Lioresal) 5 mg BIDP PRN PO muscle spasm 06/28/21 16:25 06/29/21 15:39 DC 06/29/21 15:14 Baclofen (Lioresal) 5 mg TID PO 07/03/21 16:00 07/04/21 09:23 Baclofen (Lioresal) 5 mg TID PRN PO back muscle spasm 06/29/21 21:00 07/03/21 10:37 DC 07/03/21 09:18 Bisacodyl (Dulcolax Suppository) 10 mg DAILYPRN PRN [place] CONSTIPATION 06/19/21 15:25 Budesonide/ Formoterol Fumarate (Symbicort 160/ 4.5mcg) 2 puff RBID INH 06/19/21 20:00 07/04/21 07:26 Clopidogrel Bisulfate (PLAVix) 75 mg DAILY PO 06/20/21 09:00 07/04/21 09:23 Dextrose (Dextrose 50%) 25 ml ASDIRECTED PRN IV SEE LABEL COMMENTS 06/20/21 17:10 Docusate Sodium (Colace) 100 mg BID PO 06/19/21 21:00 07/03/21 09:18 Emollient Cream (Vanicream) daily per wound care instructions DAILY TOP 06/21/21 09:00 06/26/21 09:10 DC 06/25/21 08:12 Emollient Cream (Vanicream) daily per wound care instructions DAILY@1700 TOP 06/26/21 17:00 07/03/21 16:05 Enoxaparin Sodium (Lovenox) 40 mg DAILY SC 06/20/21 09:00 07/04/21 09:24 Fish Oil ([place]-3 (1000mg)) 1 cap DAILY PO 06/20/21 09:00 07/04/21 09:23 Furosemide (Lasix) 20 mg BID@17 PO 06/21/21 13:30 06/21/21 13:59 DC Furosemide (Lasix) 40 mg DAILY PO 06/20/21 09:00 06/22/21 09:28 DC 06/22/21 08:33 Gabapentin (Neurontin) 100 mg TID PO 06/23/21 16:00 06/25/21 13:19 DC 06/25/21 08:10 Gabapentin (Neurontin) 200 mg TID PO 06/25/21 16:00 07/03/21 10:37 DC 07/03/21 09:19 Gabapentin (Neurontin) 400 mg TID PO 07/03/21 16:00 07/04/21 09:23 Glucagon (Glucagon) 1 mg ASDIRECTED PRN SC SEE LABEL COMMENTS 06/20/21 17:10 Glucose (Glucose) 16 GM ASDIRECTED PRN PO SEE LABEL COMMENTS 06/20/21 17:10 Home Med (Home Med List Complete!) ASDIRECTED XX 06/26/21 07:35 06/26/21 07:38 DC Hydralazine HCl (Apresoline) 25 mg BID PO 06/28/21 21:00 06/29/21 12:49 DC 06/29/21 10:18 Hydralazine HCl (Apresoline) 25 mg TID PO 06/29/21 16:00 06/29/21 17:43 DC 06/29/21 17:31 Hydralazine HCl (Apresoline) 25 mg TID@0600,1400,2200 PO 06/29/21 22:00 07/04/21 05:45 Insulin Human Lispro (HumaLOG INSULIN) SEE PROTOCOL TABLE AC SC 06/20/21 17:30 06/22/21 11:37 DC 06/22/21 08:31 Insulin Human Lispro (HumaLOG INSULIN) SEE PROTOCOL TABLE QHS SC 06/20/21 21:00 06/22/21 11:37 DC Latanoprost (Xalatan 0.005% Op Soln) 1 drop QHS OU 06/19/21 21:00 07/03/21 20:55 Lidocaine (Lidoderm Patch) 1 patch DAILY TD 06/27/21 09:00 06/27/21 11:17 DC Lidocaine (Lidoderm Patch) 1 patch DAILY@0700 TD 06/27/21 07:00 07/03/21 10:37 DC 07/03/21 06:00 Lidocaine (Lidoderm Patch) 1 patch DAILY@0700 TD 06/21/21 07:00 07/03/21 14:33 DC 07/03/21 05:59 Lidocaine (Lidoderm Patch) 2 patch DAILY TD 07/04/21 09:00 07/04/21 09:24 Lisinopril (Prinivil) 20 mg DAILY PO 06/21/21 09:00 06/22/21 09:27 DC 06/22/21 08:34 Magnesium Sulfate (Epsom Salt) daily at 5pm soak bilate... DAILY@1700 TOP 06/20/21 17:00 07/02/21 14:48 DC 07/01/21 14:34 Menthol/Methyl Salicylate (Bengay Cream) right side of abdomen just un... TID TOP 07/03/21 09:00 07/04/21 09:25 Miscellaneous (Unresolved Clarification Entry) SEE LABEL COMMENTS DAILY XX 07/01/21 09:00 07/02/21 12:14 DC Non-Formulary Medication ( See Comment Field Below ) REMOVE LIDODERM PATC... DAILY@1700 XX 06/21/21 17:00 07/03/21 23:59 DC 07/03/21 16:04 Non-Formulary Medication ( See Comment Field Below ) REMOVE LIDODERM PATCH DAILY@ XX 06/27/21 21:00 06/27/21 11:19 DC Non-Formulary Medication ( See Comment Field Below ) REMOVE LIDODERM PATCH DAILY@21 XX 07/04/21 21:00 Oxycodone HCl (Roxicodone, Oxyir) 5 mg Q4HP PRN PO MODERATE PAIN (PS 5-7) 06/19/21 15:25 06/23/21 12:22 DC 06/23/21 08:45 Oxycodone HCl (Roxicodone, Oxyir) 7.5 mg Q4HP PRN PO PAIN LEVEL 6-10 06/23/21 12:25 07/03/21 15:05 DC 06/26/21 00:44 Pantoprazole Sodium (Protonix) 40 mg DAILY PO 06/20/21 09:00 07/04/21 09:22 Pravastatin Sodium (Pravachol) 40 mg DAILY PO 06/20/21 09:00 07/04/21 09:23 Pravastatin Sodium (Pravachol) 40 mg QHS PO 06/19/21 21:00 06/19/21 16:56 DC Senna (Senokot) 1 tab QHS PO 06/19/21 21:00 07/01/21 21:34 Torsemide (Demadex) 10 mg BID@0900,1700 PO 07/01/21 17:00 07/04/21 09:23 Torsemide (Demadex) 10 mg DAILY PO 06/27/21 09:00 07/01/21 11:33 DC 07/01/21 08:28 Torsemide (Demadex) 20 mg BID@, PO 06/23/21 09:00 06/24/21 20:44 DC 06/24/21 17:04 Torsemide (Demadex) 20 mg DAILY PO 06/26/21 09:00 06/25/21 18:22 AMADOR CARLISLE MD Jul 04, 2021 11:42
--- NOTE | 2021-07-04 11:42 | IPNPDOC ---
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 REVIEW OF SYSTEMS: The following is a completed review of systems and has been reviewed. Review of systems otherwise unremarkable. PAIN: right ankle pain, right mid-back pain (improving) EYES: No recent vision changes EARS, NOSE, & THROAT: +deaf CARDIOVASCULAR: Denies chest pain or palpitations PULMONARY: Denies shortness of breath GASTROINTESTINAL: Denies constipation/diarrhea GENITOURINARY: no dysuria MUSCULOSKELETAL:+generalized weakness, right fibular fracture NEUROLOGICAL: denies paresthesias HEMATOLOGICAL: denies easy bruising SKIN: LE wounds PSYCHIATRIC: Unremarkable All other review of systems found to be negative. PHYSICAL EXAMINATION: VITAL SIGNS: Please see below. GENERAL: Pleasant and cooperative. No acute distress. HEENT: PERRL. Extraocular movements intact. Clear conjunctiva CARDIOVASCULAR: Regular rate and rhythm. No murmurs, rubs, or gallops LUNGS: Clear to auscultation bilaterally. No wheezes. No rhonchi ABDOMEN: Soft, nontender, nondistended. Positive bowel sounds. Normal active bowel sounds NEUROLOGICAL: Cranial nerves II through XII grossly intact. Sensation grossly intact able to follow commands and answer questions appropriately (using pad and pen) EXTREMITIES: 5\5 strength bilateral upper extremities. 5\5 strength right lower extremity. 5/5 strength in left lower extremity. +bilat LE edema (improving) right ankle TTP lateral malleoli (improving), no instability, edematous throughout foot/ankle/calf, no warmth to touch (swelling improved) TTP right sided external obliques origin (improving), no CVA tenderness SKIN: bilat LE venous stasis changes, left foot with no exudative ulcers ASSESSMENT:81-year-old M with past medical history of PAD, CHF who presents status post weakness in setting of sepsis due to LE cellulitis PLAN: 1. Rehab- PT/OT- advance mobility and ADLs, strengthen/stretch/maintain ROM all 4 limbs, Mod-I from wheelchair level room privileges 2. Cardiac- diastolic CHF with recent exacerbation, fluid restrict, daily weights, diuretics per renal -HTN cont BP meds -PAD- cont ASA and Plavix -HLD- statin -medicine consulted to assist in management 3. Resp- monitor for infection, former smoker with restrictive lung disease- cont combivent and symbicort 4. GI ppx- Protonix 5. DVT ppx- lovenox 6. ID- s/p course of antibiotics for LE cellulitis, monitor 7. Pain- Tylenol and oxycodone -right ankle pain- MRI on 06-22-21 confirmed non-displaced distal fibular fracture with ankle sprain, discussed case with Dr. Matta who recommends NWB for at least 6 weeks, and to consider using Aircast for support/compression, CAM boot not advised due to LE venous stasis and susceptibility to wounds, discussed with ortho ok for patient to be PWB for stairs in order to access his home and bathroom transfers only -f/u ortho outpatient -right sided mid-back pain likely muscle strain s pain most prominent at origin of external obliques, rib XR ordered and negative for fracture, cont baclofen for muscle spasm ( changed to standing 5mg TID), cont bengay muscle rub, increased gabapentin dosing- overall much better 8. Skin- LE wounds please see dressing changes- wounds healed 9. Renal- Patient with CHERI and significant LE edema, which has improved since renal recs and intervention- appreciated 10. Endo- patient on ISS, finger sticks all low, recent A1C 5.9%, patient does not appear to be diabetic at this time, will c/u to monitor FS and may d/c while here 11. Dispo- 07-06-21 to home, progressing towards goals Allergies Coded Allergies: No Known Allergies (Verified , 03/25/18) Vital Signs Vital Signs Date Time Temp Pulse Resp B/P (MAP) Pulse Ox O2 Delivery O2 Flow Rate FiO2 07/04/21 09:22 53 130/63 07/04/21 06:00 97.8 19 94 Room Air Laboratory Data CBC/BMP Laboratory Tests 07/04/21 06:22 Labs 24H Laboratory Tests 2 07/04/21 06:22: Immature Granulocyte % (Auto) 0.5, Neutrophils (%) (Auto) 53.8, Lymphocytes (%) (Auto) 24.1, Monocytes (%) (Auto) 13.6H, Eosinophils (%) (Auto) 6.9H, Basophils (%) (Auto) 1.1H, Neutrophils # (Auto) 3.3, Lymphocytes # (Auto) 1.5, Monocytes # (Auto) 0.8, Eosinophils # (Auto) 0.4, Basophils # (Auto) 0.1, Nucleated Red Blood Cells % (auto) 0.0, Anion Gap 7L, Glomerular Filtration Rate > 60.0, Calcium Level 9.5 Current Medications Current Medications Current Medications Medications (Trade) Dose Ordered Sig/Geovany Route PRN Reason Start Time Stop Time Status Last Admin Dose Admin Acetaminophen (Tylenol Tab) 1,000 mg TID PO 06/19/21 21:00 07/04/21 09:23 Albuterol/ Ipratropium (Combivent Respimat 100-20mcg) 1 puff RTID INH 06/19/21 20:00 07/04/21 07:26 Amlodipine Besylate (Norvasc) 5 mg DAILY PO 06/23/21 09:00 06/23/21 11:57 DC 06/23/21 08:48 Aspirin (Ecotrin) 81 mg DAILY PO 06/20/21 09:00 07/04/21 09:23 Atenolol (Tenormin) 12.5 mg DAILY PO 06/21/21 09:00 07/04/21 09:22 Atenolol (Tenormin) 25 mg DAILY PO 06/20/21 09:00 06/20/21 17:09 DC 06/20/21 09:47 Baclofen (Lioresal) 5 mg BIDP PRN PO muscle spasm 06/28/21 16:25 06/29/21 15:39 DC 06/29/21 15:14 Baclofen (Lioresal) 5 mg TID PO 07/03/21 16:00 07/04/21 09:23 Baclofen (Lioresal) 5 mg TID PRN PO back muscle spasm 06/29/21 21:00 07/03/21 10:37 DC 07/03/21 09:18 Bisacodyl (Dulcolax Suppository) 10 mg DAILYPRN PRN [place] CONSTIPATION 06/19/21 15:25 Budesonide/ Formoterol Fumarate (Symbicort 160/ 4.5mcg) 2 puff RBID INH 06/19/21 20:00 07/04/21 07:26 Clopidogrel Bisulfate (PLAVix) 75 mg DAILY PO 06/20/21 09:00 07/04/21 09:23 Dextrose (Dextrose 50%) 25 ml ASDIRECTED PRN IV SEE LABEL COMMENTS 06/20/21 17:10 Docusate Sodium (Colace) 100 mg BID PO 06/19/21 21:00 07/03/21 09:18 Emollient Cream (Vanicream) daily per wound care instructions DAILY TOP 06/21/21 09:00 06/26/21 09:10 DC 06/25/21 08:12 Emollient Cream (Vanicream) daily per wound care instructions DAILY@1700 TOP 06/26/21 17:00 07/03/21 16:05 Enoxaparin Sodium (Lovenox) 40 mg DAILY SC 06/20/21 09:00 07/04/21 09:24 Fish Oil ([place]-3 (1000mg)) 1 cap DAILY PO 06/20/21 09:00 07/04/21 09:23 Furosemide (Lasix) 20 mg BID@17 PO 06/21/21 13:30 06/21/21 13:59 DC Furosemide (Lasix) 40 mg DAILY PO 06/20/21 09:00 06/22/21 09:28 DC 06/22/21 08:33 Gabapentin (Neurontin) 100 mg TID PO 06/23/21 16:00 06/25/21 13:19 DC 06/25/21 08:10 Gabapentin (Neurontin) 200 mg TID PO 06/25/21 16:00 07/03/21 10:37 DC 07/03/21 09:19 Gabapentin (Neurontin) 400 mg TID PO 07/03/21 16:00 07/04/21 09:23 Glucagon (Glucagon) 1 mg ASDIRECTED PRN SC SEE LABEL COMMENTS 06/20/21 17:10 Glucose (Glucose) 16 GM ASDIRECTED PRN PO SEE LABEL COMMENTS 06/20/21 17:10 Home Med (Home Med List Complete!) ASDIRECTED XX 06/26/21 07:35 06/26/21 07:38 DC Hydralazine HCl (Apresoline) 25 mg BID PO 06/28/21 21:00 06/29/21 12:49 DC 06/29/21 10:18 Hydralazine HCl (Apresoline) 25 mg TID PO 06/29/21 16:00 06/29/21 17:43 DC 06/29/21 17:31 Hydralazine HCl (Apresoline) 25 mg TID@0600,1400,2200 PO 06/29/21 22:00 07/04/21 05:45 Insulin Human Lispro (HumaLOG INSULIN) SEE PROTOCOL TABLE AC SC 06/20/21 17:30 06/22/21 11:37 DC 06/22/21 08:31 Insulin Human Lispro (HumaLOG INSULIN) SEE PROTOCOL TABLE QHS SC 06/20/21 21:00 06/22/21 11:37 DC Latanoprost (Xalatan 0.005% Op Soln) 1 drop QHS OU 06/19/21 21:00 07/03/21 20:55 Lidocaine (Lidoderm Patch) 1 patch DAILY TD 06/27/21 09:00 06/27/21 11:17 DC Lidocaine (Lidoderm Patch) 1 patch DAILY@0700 TD 06/27/21 07:00 07/03/21 10:37 DC 07/03/21 06:00 Lidocaine (Lidoderm Patch) 1 patch DAILY@0700 TD 06/21/21 07:00 07/03/21 14:33 DC 07/03/21 05:59 Lidocaine (Lidoderm Patch) 2 patch DAILY TD 07/04/21 09:00 07/04/21 09:24 Lisinopril (Prinivil) 20 mg DAILY PO 06/21/21 09:00 06/22/21 09:27 DC 06/22/21 08:34 Magnesium Sulfate (Epsom Salt) daily at 5pm soak bilate... DAILY@1700 TOP 06/20/21 17:00 07/02/21 14:48 DC 07/01/21 14:34 Menthol/Methyl Salicylate (Bengay Cream) right side of abdomen just un... TID TOP 07/03/21 09:00 07/04/21 09:25 Miscellaneous (Unresolved Clarification Entry) SEE LABEL COMMENTS DAILY XX 07/01/21 09:00 07/02/21 12:14 DC Non-Formulary Medication ( See Comment Field Below ) REMOVE LIDODERM PATC... DAILY@1700 XX 06/21/21 17:00 07/03/21 23:59 DC 07/03/21 16:04 Non-Formulary Medication ( See Comment Field Below ) REMOVE LIDODERM PATCH DAILY@ XX 06/27/21 21:00 06/27/21 11:19 DC Non-Formulary Medication ( See Comment Field Below ) REMOVE LIDODERM PATCH DAILY@ XX 07/04/21 21:00 Oxycodone HCl (Roxicodone, Oxyir) 5 mg Q4HP PRN PO MODERATE PAIN (PS 5-7) 06/19/21 15:25 06/23/21 12:22 DC 06/23/21 08:45 Oxycodone HCl (Roxicodone, Oxyir) 7.5 mg Q4HP PRN PO PAIN LEVEL 6-10 06/23/21 12:25 07/03/21 15:05 DC 06/26/21 00:44 Pantoprazole Sodium (Protonix) 40 mg DAILY PO 06/20/21 09:00 07/04/21 09:22 Pravastatin Sodium (Pravachol) 40 mg DAILY PO 06/20/21 09:00 07/04/21 09:23 Pravastatin Sodium (Pravachol) 40 mg QHS PO 06/19/21 21:00 06/19/21 16:56 DC Senna (Senokot) 1 tab QHS PO 06/19/21 21:00 07/01/21 21:34 Torsemide (Demadex) 10 mg BID@0900,1700 PO 07/01/21 17:00 07/04/21 09:23 Torsemide (Demadex) 10 mg DAILY PO 06/27/21 09:00 07/01/21 11:33 DC 07/01/21 08:28 Torsemide (Demadex) 20 mg BID@,17 PO 06/23/21 09:00 06/24/21 20:44 DC 06/24/21 17:04 Torsemide (Demadex) 20 mg DAILY PO 06/26/21 09:00 06/25/21 18:22 AMADOR CARLISLE MD Jul 04, 2021 11:42
[2021-07-04 14:00] VITALS: BP 118/53
[2021-07-04] MEDS: VANICREAM MOISTURIZING SKIN CREAM 113GM TUBE TOP SCH (16:14)
[2021-07-04 20:00] VITALS: BP 125/57
[2021-07-04] MEDS: SENNA 8.6 MG TAB (SENOKOT) PO SCH (21:00)
[2021-07-04] MEDS: **NOTE PATIENT COMMENT** MISC XX SCH (21:24)
[2021-07-04] MEDS: LATANOPROST 0.005% OPHTH SOLN 2.5 ML OU SCH (21:24)
--- NOTE | 2021-07-04 22:01 | IPNPDOC ---
Subjective CC/HPI The patient is a 81-year-old male admitted with a reason for visit of Peripheral Artery Disease. Events since last encounter Pt was seen at rehab, sitting in sofa, writing and signs used to communicate, edema is a lot better.Renal function is improving. Cr 1.2-->1.1. Reports mild pain Rt ankle. General: Denies: ROS Unobtainable, Chills, Night Sweats, Fatigue, Malaise, Normal Appetite, Other Symptoms Constitutional: Denies: Chills, Fever, Malaise, Night Sweats, Weakness, Fatig ue, Weight Loss, Lethargy, Other Eyes: Denies: Pain, Vision change, Conjunctivae inflammation, Eyelid inflammation, Redness, Other ENT: Denies: Head Aches, Ear Pain, Dysphagia, Sinus Congestion, Post Nasal Drip, Sore Throat, Epistaxis, Other Symptoms Skin: Denies: Rash, Lesions, Jaundice, Bruising, Itching, Dry, Breakdown, Nail Changes, Other Pulmonary: Denies: Dyspnea, Cough, Pleuritic Chest Pain, Other Symptoms Cardiovascular: Denies: Chest Pain, Palpitations, Orthopnea, Paroxysmal Noc. Dyspnea, Edema, Lt Headedness, Other Symptoms Gastrointestinal: Denies: Nausea, Vomiting, Abdominal Pain, Diarrhea, Constipation, Melena, Hematochezia, Other Symptoms Hematologic: Denies: Bruising, Bleeding Excessively, Petecchia, Purpura, Enlarged Lymph Nodes, Other Hematologic Musculoskeletal: Reports: Joint Pain (Rt ankle) Neurological: Denies: Weakness, Numbness Psych: Reports: Mood Normal Objective Physical Examination General Exam: Alert, No Acute Distress, Other (Only communicates with writing or sign language); No: Cooperative, Mild Distress, Moderate Distress, Severe Distress EYE EXAM: PERRLA, Conjunctiva & lids normal, EOMI ENT EXAM: Atraumatic, Mucous membr. moist/pink Neck Exam: Supple, JVD Chest Exam: Clear to auscultation, Normal air movement Heart Exam: Rate Normal, Normal S1, Normal S2 ABDOMEN EXAM: Normal bowel sounds, Soft; No: Tenderness Extremity Exam: Edema (Bilat trace to 1+ edema, Rt foot brace) Skin Exam: No: Rash, Breakdown Neuro Exam: Normal Gait, Other (Sign language) Psych Exam: Mental status NL, Mood NL Vital Signs/I&O Vital Signs Date Time Temp Pulse Resp B/P (MAP) Pulse Ox O2 Delivery O2 Flow Rate FiO2 07/04/21 21:22 125/57 07/04/21 20:00 97.7 50 17 93 Room Air I&O- Last 24 Hours up to 6 AM 07/04/21 06:00 Intake Total 840 ml Output Total 1600 ml Balance -760 ml Laboratory Data Labs 24H Laboratory Tests 2 07/04/21 06:22: Immature Granulocyte % (Auto) 0.5, Neutrophils (%) (Auto) 53.8, Lymphocytes (%) (Auto) 24.1, Monocytes (%) (Auto) 13.6H, Eosinophils (%) (Auto) 6.9H, Basophils (%) (Auto) 1.1H, Neutrophils # (Auto) 3.3, Lymphocytes # (Auto) 1.5, Monocytes # (Auto) 0.8, Eosinophils # (Auto) 0.4, Basophils # (Auto) 0.1, Nucleated Red Blood Cells % (auto) 0.0, Anion Gap 7L, Glomerular Filtration Rate > 60.0, Calcium Level 9.5 CBC/BMP Laboratory Tests 07/04/21 06:22 Current Medications Current Medications Medications (Trade) Dose Ordered Sig/Geovany Route PRN Reason Start Time Stop Time Status Last Admin Dose Admin Acetaminophen (Tylenol Tab) 1,000 mg TID PO 06/19/21 21:00 07/04/21 21:23 Albuterol/ Ipratropium (Combivent Respimat 100-20mcg) 1 puff RTID INH 06/19/21 20:00 07/04/21 14:22 Amlodipine Besylate (Norvasc) 5 mg DAILY PO 06/23/21 09:00 06/23/21 11:57 DC 06/23/21 08:48 Aspirin (Ecotrin) 81 mg DAILY PO 06/20/21 09:00 07/04/21 09:23 Atenolol (Tenormin) 12.5 mg DAILY PO 06/21/21 09:00 07/04/21 09:22 Atenolol (Tenormin) 25 mg DAILY PO 06/20/21 09:00 06/20/21 17:09 DC 06/20/21 09:47 Baclofen (Lioresal) 5 mg BIDP PRN PO muscle spasm 06/28/21 16:25 06/29/21 15:39 DC 06/29/21 15:14 Baclofen (Lioresal) 5 mg TID PO 07/03/21 16:00 07/04/21 21:23 Baclofen (Lioresal) 5 mg TID PRN PO back muscle spasm 06/29/21 21:00 07/03/21 10:37 DC 07/03/21 09:18 Bisacodyl (Dulcolax Suppository) 10 mg DAILYPRN PRN NM CONSTIPATION 06/19/21 15:25 Budesonide/ Formoterol Fumarate (Symbicort 160/ 4.5mcg) 2 puff RBID INH 06/19/21 20:00 07/04/21 20:22 Clopidogrel Bisulfate (PLAVix) 75 mg DAILY PO 06/20/21 09:00 07/04/21 09:23 Dextrose (Dextrose 50%) 25 ml ASDIRECTED PRN IV SEE LABEL COMMENTS 06/20/21 17:10 Docusate Sodium (Colace) 100 mg BID PO 06/19/21 21:00 07/03/21 09:18 Emollient Cream (Vanicream) daily per wound care instructions DAILY TOP 06/21/21 09:00 06/26/21 09:10 DC 06/25/21 08:12 Emollient Cream (Vanicream) daily per wound care instructions DAILY@1700 TOP 06/26/21 17:00 07/04/21 16:14 Enoxaparin Sodium (Lovenox) 40 mg DAILY SC 06/20/21 09:00 07/04/21 09:24 Fish Oil ([place]-3 (1000mg)) 1 cap DAILY PO 06/20/21 09:00 07/04/21 09:23 Furosemide (Lasix) 20 mg BID@09,17 PO 06/21/21 13:30 06/21/21 13:59 DC Furosemide (Lasix) 40 mg DAILY PO 06/20/21 09:00 06/22/21 09:28 DC 06/22/21 08:33 Gabapentin (Neurontin) 100 mg TID PO 06/23/21 16:00 06/25/21 13:19 DC 06/25/21 08:10 Gabapentin (Neurontin) 200 mg TID PO 06/25/21 16:00 07/03/21 10:37 DC 07/03/21 09:19 Gabapentin (Neurontin) 400 mg TID PO 07/03/21 16:00 07/04/21 21:23 Glucagon (Glucagon) 1 mg ASDIRECTED PRN SC SEE LABEL COMMENTS 06/20/21 17:10 Glucose (Glucose) 16 GM ASDIRECTED PRN PO SEE LABEL COMMENTS 06/20/21 17:10 Home Med (Home Med List Complete!) ASDIRECTED XX 06/26/21 07:35 06/26/21 07:38 DC Hydralazine HCl (Apresoline) 25 mg BID PO 06/28/21 21:00 06/29/21 12:49 DC 06/29/21 10:18 Hydralazine HCl (Apresoline) 25 mg TID PO 06/29/21 16:00 06/29/21 17:43 DC 06/29/21 17:31 Hydralazine HCl (Apresoline) 25 mg TID@0600,1400,2200 PO 06/29/21 22:00 07/04/21 05:45 Insulin Human Lispro (HumaLOG INSULIN) SEE PROTOCOL TABLE AC SC 06/20/21 17:30 06/22/21 11:37 DC 06/22/21 08:31 Insulin Human Lispro (HumaLOG INSULIN) SEE PROTOCOL TABLE QHS SC 06/20/21 21:00 06/22/21 11:37 DC Latanoprost (Xalatan 0.005% Op Soln) 1 drop QHS OU 06/19/21 21:00 07/04/21 21:24 Lidocaine (Lidoderm Patch) 1 patch DAILY TD 06/27/21 09:00 06/27/21 11:17 DC Lidocaine (Lidoderm Patch) 1 patch DAILY@0700 TD 06/27/21 07:00 07/03/21 10:37 DC 07/03/21 06:00 Lidocaine (Lidoderm Patch) 1 patch DAILY@0700 TD 06/21/21 07:00 07/03/21 14:33 DC 07/03/21 05:59 Lidocaine (Lidoderm Patch) 2 patch DAILY TD 07/04/21 09:00 07/04/21 09:24 Lisinopril (Prinivil) 20 mg DAILY PO 06/21/21 09:00 06/22/21 09:27 DC 06/22/21 08:34 Magnesium Sulfate (Epsom Salt) daily at 5pm soak bilate... DAILY@1700 TOP 06/20/21 17:00 07/02/21 14:48 DC 07/01/21 14:34 Menthol/Methyl Salicylate (Bengay Cream) right side of abdomen just un... TID TOP 07/03/21 09:00 07/04/21 21:24 Miscellaneous (Unresolved Clarification Entry) SEE LABEL COMMENTS DAILY XX 07/01/21 09:00 07/02/21 12:14 DC Non-Formulary Medication ( See Comment Field Below ) REMOVE LIDODERM PATC... DAILY@1700 XX 06/21/21 17:00 07/03/21 23:59 DC 07/03/21 16:04 Non-Formulary Medication ( See Comment Field Below ) REMOVE LIDODERM PATCH DAILY@21 XX 06/27/21 21:00 06/27/21 11:19 DC Non-Formulary Medication ( See Comment Field Below ) REMOVE LIDODERM PATCH DAILY@21 XX 07/04/21 21:00 07/04/21 21:24 Oxycodone HCl (Roxicodone, Oxyir) 5 mg Q4HP PRN PO MODERATE PAIN (PS 5-7) 06/19/21 15:25 06/23/21 12:22 DC 06/23/21 08:45 Oxycodone HCl (Roxicodone, Oxyir) 7.5 mg Q4HP PRN PO PAIN LEVEL 6-10 06/23/21 12:25 07/03/21 15:05 DC 06/26/21 00:44 Pantoprazole Sodium (Protonix) 40 mg DAILY PO 06/20/21 09:00 07/04/21 09:22 Pravastatin Sodium (Pravachol) 40 mg DAILY PO 06/20/21 09:00 07/04/21 09:23 Pravastatin Sodium (Pravachol) 40 mg QHS PO 06/19/21 21:00 06/19/21 16:56 DC Senna (Senokot) 1 tab QHS PO 06/19/21 21:00 07/01/21 21:34 Torsemide (Demadex) 10 mg BID@0900,1700 PO 07/01/21 17:00 07/04/21 16:11 Torsemide (Demadex) 10 mg DAILY PO 06/27/21 09:00 07/01/21 11:33 DC 07/01/21 08:28 Torsemide (Demadex) 20 mg BID@09,17 PO 06/23/21 09:00 06/24/21 20:44 DC 06/24/21 17:04 Torsemide (Demadex) 20 mg DAILY PO 06/26/21 09:00 06/25/21 18:22 DC Allergies Coded Allergies: No Known Allergies (Verified , 03/25/18) Assessment/Plan Date Seen The patient was seen on 07/04/21 in AM. Plan / VTE VTE Prophylaxis Ordered?: Yes Plan Orders past 48 Hours Orders Baclofen (Lioresal) (07/03/21 16:00) Menthol/Methyl Salicylate Crm (Bengay Cr (07/03/21 09:00) K Pad (07/03/21 10:34) Gabapentin (Neurontin) (07/03/21 16:00) Lidocaine 5% Patch (Lidoderm Patch) (07/04/21 09:00) Note Patient Comment ( See Comment (07/04/21 21:00) Room Privileges (Pm&R) (07/04/21 12:28) Plan Text CHERI HFpEF with grade 1 diastolic dysfunction Leg edema Hypertension Continue low dose diuretic for now. stable and improving renal function. improving edema. HTN controlled with current regimen MILTON DANIELS MD Jul 04, 2021 22:01
[2021-07-04 22:20] VITALS: BP 128/58
[2021-07-05] MEDS: **hydrALAZINE HCL** 25 MG TAB PO SCH ×3 (05:36→21:05)
[2021-07-05 06:00] VITALS: BP 147/67
[2021-07-05] MEDS: SYMBICORT 160/4.5MCG INHALER 6GM INH SCH ×2 (08:19→20:32)
[2021-07-05] MEDS: COMBIVENT RESPIMAT 100-20MCG INHALER 4GM INH SCH ×3 (08:19→20:00)
[2021-07-05] MEDS: REMEDY PHYTOPLEX Z-GUARD PASTE 113GM TUBE (FROM STOREROOM PRODUCT) TOP SCH ×3 (09:00→21:00)
[2021-07-05] MEDS: ENOXAPARIN 40MG/0.4ML SYRINGE (J1650 PER 10MG) SC SCH (09:14)
[2021-07-05] MEDS: ATENOLOL 12.5MG PER 1/2 TABLET PO SCH (09:16)
[2021-07-05] MEDS: DOCUSATE SODIUM 100MG CAPSULE PO SCH ×2 (09:16→21:04)
[2021-07-05] MEDS: OMEGA-3 1000MG CAPSULE PO SCH (09:16)
[2021-07-05] MEDS: GABAPENTIN 400MG CAP PO SCH ×3 (09:16→21:04)
[2021-07-05] MEDS: ACETAMINOPHEN 500 MG TAB PO SCH ×3 (09:17→21:06)
[2021-07-05] MEDS: PANTOPRAZOLE 40MG TAB (PROTONIX) PO SCH (09:19)
[2021-07-05] MEDS: PRAVASTATIN 20 MG TAB PO SCH (09:19)
[2021-07-05] MEDS: CLOPIDOGREL 75 MG TAB PO SCH (09:19)
[2021-07-05] MEDS: BACLOFEN 5MG PER 1/2 TABLET PO SCH ×3 (09:19→21:04)
[2021-07-05] MEDS: ASPIRIN 81MG ENTERIC TABLET PO SCH (09:19)
[2021-07-05] MEDS: TORSEMIDE 10 MG TABLET PO SCH ×2 (09:19→17:11)
[2021-07-05] MEDS: LIDOCAINE 5% (LIDODERM) PATCH TD SCH (09:28)
--- NOTE | 2021-07-05 09:28 | IPNPDOC ---
PM&R Progress Note DATE OF SERVICE: Jul 05, 2021 Back End Architect Progress Note Subjective: Patient stating his right 5th toe hurts on the right and that when he went to transfer from wheelchair to bed last night he slipped to the floor and bent his foot. He denies new ankle pain. REVIEW OF SYSTEMS: The following is a completed review of systems and has been reviewed. Review of systems otherwise unremarkable. PAIN: right ankle pain, right mid-back pain (improving) EYES: No recent vision changes EARS, NOSE, & THROAT: +deaf CARDIOVASCULAR: Denies chest pain or palpitations PULMONARY: Denies shortness of breath GASTROINTESTINAL: Denies constipation/diarrhea GENITOURINARY: no dysuria MUSCULOSKELETAL:+generalized weakness, right fibular fracture NEUROLOGICAL: denies paresthesias HEMATOLOGICAL: denies easy bruising SKIN: LE wounds PSYCHIATRIC: Unremarkable All other review of systems found to be negative. PHYSICAL EXAMINATION: VITAL SIGNS: Please see below. GENERAL: Pleasant and cooperative. No acute distress. HEENT: PERRL. Extraocular movements intact. Clear conjunctiva CARDIOVASCULAR: Regular rate and rhythm. No murmurs, rubs, or gallops LUNGS: Clear to auscultation bilaterally. No wheezes. No rhonchi ABDOMEN: Soft, nontender, nondistended. Positive bowel sounds. Normal active bowel sounds NEUROLOGICAL: Cranial nerves II through XII grossly intact. Sensation grossly intact able to follow commands and answer questions appropriately (using pad and pen) EXTREMITIES: 5\5 strength bilateral upper extremities. 5\5 strength right lower extremity. 5/5 strength in left lower extremity. +bilat LE edema (improving) right ankle TTP lateral malleoli (improving), no instability, edematous thro ughout foot/ankle/calf, no warmth to touch (swelling improved) right D5 no swelling/erythema, TTP at base of proximal phalange SKIN: bilat LE venous stasis changes, left foot with no exudative ulcers ASSESSMENT:81-year-old M with past medical history of PAD, CHF who presents status post weakness in setting of sepsis due to LE cellulitis PLAN: 1. Rehab- PT/OT- advance mobility and ADLs, strengthen/stretch/maintain ROM all 4 limbs, Mod-I from wheelchair level room privileges 2. Cardiac- diastolic CHF with recent exacerbation, fluid restrict, daily weights, diuretics per renal -HTN cont BP meds -PAD- cont ASA and Plavix -HLD- statin -medicine consulted to assist in management 3. Resp- monitor for infection, former smoker with restrictive lung disease- c ont combivent and symbicort 4. GI ppx- Protonix 5. DVT ppx- lovenox 6. ID- s/p course of antibiotics for LE cellulitis, monitor 7. Pain- Tylenol and oxycodone -right ankle pain- MRI on 06-22-21 confirmed non-displaced distal fibular fracture with ankle sprain, discussed case with Dr. Matta who recommends NWB for at least 6 weeks, and to consider using Aircast for support/compression, CAM boot not advised due to LE venous stasis and susceptibility to wounds, discussed with ortho ok for patient to be PWB for stairs in order to access his home and bathroom transfers only -f/u ortho outpatient -right sided mid-back pain likely muscle strain s pain most prominent at origin of external obliques, rib XR ordered and negative for fracture, cont baclofen for muscle spasm ( changed to standing 5mg TID), cont bengay muscle rub, increased gabapentin dosing- overall much better -right toe pain will order XR to r/o fracture given fall overnight where he bent his toe when trying to transfer to the bed 8. Skin- LE wounds please see dressing changes- wounds healed 9. Renal- Patient with CHERI and significant LE edema, which has improved since renal recs and intervention- appreciated 10. Endo- patient on ISS, finger sticks all low, recent A1C 5.9%, patient does not appear to be diabetic at this time, will c/u to monitor FS and may d/c while here 11. Dispo- 07-06-21 to home, progressing towards goals Allergies Coded Allergies: No Known Allergies (Verified , 03/25/18) Vital Signs Vital Signs Date Time Temp Pulse Resp B/P (MAP) Pulse Ox O2 Delivery O2 Flow Rate FiO2 07/05/21 06:00 98.0 62 16 147/67 (93) 95 Room Air Current Medications Current Medications Current Medications Medications (Trade) Dose Ordered Sig/Geovany Route PRN Reason Start Time Stop Time Status Last Admin Dose Admin Acetaminophen (Tylenol Tab) 1,000 mg TID PO 06/19/21 21:00 07/04/21 21:23 Albuterol/ Ipratropium (Combivent Respimat 100-20mcg) 1 puff RTID INH 06/19/21 20:00 07/05/21 08:19 Amlodipine Besylate (Norvasc) 5 mg DAILY PO 06/23/21 09:00 06/23/21 11:57 DC 06/23/21 08:48 Aspirin (Ecotrin) 81 mg DAILY PO 06/20/21 09:00 07/04/21 09:23 Atenolol (Tenormin) 12.5 mg DAILY PO 06/21/21 09:00 07/04/21 09:22 Atenolol (Tenormin) 25 mg DAILY PO 06/20/21 09:00 06/20/21 17:09 DC 06/20/21 09:47 Baclofen (Lioresal) 5 mg BIDP PRN PO muscle spasm 06/28/21 16:25 06/29/21 15:39 DC 06/29/21 15:14 Baclofen (Lioresal) 5 mg TID PO 07/03/21 16:00 07/04/21 21:23 Baclofen (Lioresal) 5 mg TID PRN PO back muscle spasm 06/29/21 21:00 07/03/21 10:37 DC 07/03/21 09:18 Bisacodyl (Dulcolax Suppository) 10 mg DAILYPRN PRN DC CONSTIPATION 06/19/21 15:25 Budesonide/ Formoterol Fumarate (Symbicort 160/ 4.5mcg) 2 puff RBID INH 06/19/21 20:00 07/05/21 08:19 Clopidogrel Bisulfate (PLAVix) 75 mg DAILY PO 06/20/21 09:00 07/04/21 09:23 Dextrose (Dextrose 50%) 25 ml ASDIRECTED PRN IV SEE LABEL COMMENTS 06/20/21 17:10 Docusate Sodium (Colace) 100 mg BID PO 06/19/21 21:00 07/03/21 09:18 Emollient Cream (Vanicream) daily per wound care instructions DAILY TOP 06/21/21 09:00 06/26/21 09:10 DC 06/25/21 08:12 Emollient Cream (Vanicream) daily per wound care instructions DAILY@1700 TOP 06/26/21 17:00 07/04/21 16:14 Enoxaparin Sodium (Lovenox) 40 mg DAILY SC 06/20/21 09:00 07/04/21 09:24 Fish Oil ([place]-3 (1000mg)) 1 cap DAILY PO 06/20/21 09:00 07/04/21 09:23 Furosemide (Lasix) 20 mg BID@09,17 PO 06/21/21 13:30 06/21/21 13:59 DC Furosemide (Lasix) 40 mg DAILY PO 06/20/21 09:00 06/22/21 09:28 DC 06/22/21 08:33 Gabapentin (Neurontin) 100 mg TID PO 06/23/21 16:00 06/25/21 13:19 DC 06/25/21 08:10 Gabapentin (Neurontin) 200 mg TID PO 06/25/21 16:00 07/03/21 10:37 DC 07/03/21 09:19 Gabapentin (Neurontin) 400 mg TID PO 07/03/21 16:00 07/04/21 21:23 Glucagon (Glucagon) 1 mg ASDIRECTED PRN SC SEE LABEL COMMENTS 06/20/21 17:10 Glucose (Glucose) 16 GM ASDIRECTED PRN PO SEE LABEL COMMENTS 06/20/21 17:10 Home Med (Home Med List Complete!) ASDIRECTED XX 06/26/21 07:35 06/26/21 07:38 DC Hydralazine HCl (Apresoline) 25 mg BID PO 06/28/21 21:00 06/29/21 12:49 DC 06/29/21 10:18 Hydralazine HCl (Apresoline) 25 mg TID PO 06/29/21 16:00 06/29/21 17:43 DC 06/29/21 17:31 Hydralazine HCl (Apresoline) 25 mg TID@0600,1400,2200 PO 06/29/21 22:00 07/05/21 05:36 Insulin Human Lispro (HumaLOG INSULIN) SEE PROTOCOL TABLE AC SC 06/20/21 17:30 06/22/21 11:37 DC 06/22/21 08:31 Insulin Human Lispro (HumaLOG INSULIN) SEE PROTOCOL TABLE QHS SC 06/20/21 21:00 06/22/21 11:37 DC Latanoprost (Xalatan 0.005% Op Soln) 1 drop QHS OU 06/19/21 21:00 07/04/21 21:24 Lidocaine (Lidoderm Patch) 1 patch DAILY TD 06/27/21 09:00 06/27/21 11:17 DC Lidocaine (Lidoderm Patch) 1 patch DAILY@0700 TD 06/27/21 07:00 07/03/21 10:37 DC 07/03/21 06:00 Lidocaine (Lidoderm Patch) 1 patch DAILY@0700 TD 06/21/21 07:00 07/03/21 14:33 DC 07/03/21 05:59 Lidocaine (Lidoderm Patch) 2 patch DAILY TD 07/04/21 09:00 07/04/21 09:24 Lisinopril (Prinivil) 20 mg DAILY PO 06/21/21 09:00 06/22/21 09:27 DC 06/22/21 08:34 Magnesium Sulfate (Epsom Salt) daily at 5pm soak bilate... DAILY@1700 TOP 06/20/21 17:00 07/02/21 14:48 DC 07/01/21 14:34 Menthol/Methyl Salicylate (Bengay Cream) right side of abdomen just un... TID TOP 07/03/21 09:00 07/04/21 21:24 Miscellaneous (Unresolved Clarification Entry) SEE LABEL COMMENTS DAILY XX 07/01/21 09:00 07/02/21 12:14 DC Non-Formulary Medication ( See Comment Field Below ) REMOVE LIDODERM PATC... DAILY@1700 XX 06/21/21 17:00 07/03/21 23:59 DC 07/03/21 16:04 Non-Formulary Medication ( See Comment Field Below ) REMOVE LIDODERM PATCH DAILY@21 XX 06/27/21 21:00 06/27/21 11:19 DC Non-Formulary Medication ( See Comment Field Below ) REMOVE LIDODERM PATCH DAILY@21 XX 07/04/21 21:00 07/04/21 21:24 Oxycodone HCl (Roxicodone, Oxyir) 5 mg Q4HP PRN PO MODERATE PAIN (PS 5-7) 06/19/21 15:25 06/23/21 12:22 DC 06/23/21 08:45 Oxycodone HCl (Roxicodone, Oxyir) 7.5 mg Q4HP PRN PO PAIN LEVEL 6-10 06/23/21 12:25 07/03/21 15:05 DC 06/26/21 00:44 Pantoprazole Sodium (Protonix) 40 mg DAILY PO 06/20/21 09:00 07/04/21 09:22 Pravastatin Sodium (Pravachol) 40 mg DAILY PO 06/20/21 09:00 07/04/21 09:23 Pravastatin Sodium (Pravachol) 40 mg QHS PO 06/19/21 21:00 06/19/21 16:56 DC Senna (Senokot) 1 tab QHS PO 06/19/21 21:00 07/01/21 21:34 Torsemide (Demadex) 10 mg BID@0900,1700 PO 07/01/21 17:00 07/04/21 16:11 Torsemide (Demadex) 10 mg DAILY PO 06/27/21 09:00 07/01/21 11:33 DC 07/01/21 08:28 Torsemide (Demadex) 20 mg BID@09,17 PO 06/23/21 09:00 06/24/21 20:44 DC 06/24/21 17:04 Torsemide (Demadex) 20 mg DAILY PO 06/26/21 09:00 06/25/21 18:22 AMADOR CARLISLE MD Jul 05, 2021 09:28
[2021-07-05] MEDS: ANALGESIC BALM CRM 3OZ TOP SCH ×3 (09:29→21:07)
[2021-07-05 14:00] VITALS: BP 143/65
--- NOTE | 2021-07-05 15:22 | REP ---
INDICATION: fall onto right foot- D5 toe pain r/o fracture. COMPARISON: None. TECHNIQUE: Four views of the right foot. FINDINGS: Four views of the right foot demonstrate diffuse osteoporosis. There is plantar and Achilles calcaneal spurring. The oblique projection suggests a subtle cortical disruption of the base of the proximal phalanx of the 5th toe which may be a recent fracture. There is osteoarthritis at the 1st MTP joint. No other acute bony abnormality. No opaque foreign body noted. IMPRESSION: Probable nondisplaced fracture proximal phalanx right 5th toe. 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 Osteoporosis. <Electronically signed by Idris Espinoza > 07/05/21 [id number]
[2021-07-05] MEDS: VANICREAM MOISTURIZING SKIN CREAM 113GM TUBE TOP SCH (17:18)
[2021-07-05 20:00] VITALS: BP 120/83
[2021-07-05] MEDS: SENNA 8.6 MG TAB (SENOKOT) PO SCH (21:04)
[2021-07-05] MEDS: LATANOPROST 0.005% OPHTH SOLN 2.5 ML OU SCH (21:07)
[2021-07-05] MEDS: **NOTE PATIENT COMMENT** MISC XX SCH (21:07)
[2021-07-06] MEDS: **hydrALAZINE HCL** 25 MG TAB PO SCH ×2 (05:37→11:05)
[2021-07-06 06:00] VITALS: BP 159/72
[2021-07-06 07:50] LABS: BASO # 0.1 10^3/uL (0.0-0.2); BASO % 1.2 % (0.0-1.0); EOS # 0.4 10^3/uL (0.0-0.5); EOS % 6.3 % (0.0-3.0); HEMATOCRIT 35.1 % (42.0-52.0); HEMOGLOBIN 11.5 g/dl (13.5-17.5); LYMPH # 1.3 10^3/uL (1.5-5.0); LYMPH % 22.7 % (24.0-44.0); MEAN CORPUSCULAR HEMOGLOBIN 30.6 pg (27.0-33.0); MEAN CORPUSCULAR HGB CONC 32.8 g/dl (32.0-36.5); MEAN CORPUSCULAR VOLUME 93.4 fl (80.0-96.0); MONO # 0.8 10^3/uL (0.0-0.8); MONO % 13.2 % (2.0-8.0); NEUTROPHILS # 3.3 10^3/uL (1.5-8.5); NEUTROPHILS % 56.4 % (36.0-66.0); PLATELET COUNT, AUTOMATED 236 10^3/uL (150-450); RED BLOOD COUNT 3.76 10^6/uL (4.30-6.10); WHITE BLOOD COUNT 5.9 10^3/uL (4.0-10.0)
[2021-07-06] MEDS: SYMBICORT 160/4.5MCG INHALER 6GM INH SCH (08:00)
[2021-07-06] MEDS: COMBIVENT RESPIMAT 100-20MCG INHALER 4GM INH SCH ×2 (08:00→14:00)
[2021-07-06 08:11] LABS: ALBUMIN 3.2 GM/DL (3.2-5.2); CALCIUM LEVEL 9.5 MG/DL (8.8-10.2); CREATININE FOR GFR 1.25 MG/DL (0.70-1.30); GLOMERULAR FILTRATION RATE 58.9 (>35); PHOSPHORUS LEVEL 3.9 MG/DL (2.5-4.9); POTASSIUM SERUM 4.1 MEQ/L (3.5-5.1)
[2021-07-06] MEDS: ANALGESIC BALM CRM 3OZ TOP SCH (09:00)
[2021-07-06] MEDS: DOCUSATE SODIUM 100MG CAPSULE PO SCH (09:00)
[2021-07-06] MEDS: REMEDY PHYTOPLEX Z-GUARD PASTE 113GM TUBE (FROM STOREROOM PRODUCT) TOP SCH (09:00)
[2021-07-06] MEDS: ENOXAPARIN 40MG/0.4ML SYRINGE (J1650 PER 10MG) SC SCH (09:00)
[2021-07-06] MEDS ORDERED: VENTAER INH (09:38)
[2021-07-06] MEDS ORDERED: BACL10TA2 PO (09:38)
[2021-07-06] MEDS ORDERED: GABA-283 PO (09:38)
[2021-07-06] MEDS ORDERED: HYDR25TA PO (09:38)
[2021-07-06] MEDS ORDERED: MUSCCRE9 TOP (09:38)
[2021-07-06] MEDS ORDERED: BREO1INH INH (09:38)
[2021-07-06] MEDS ORDERED: CLOP75TA2 PO (09:38)
[2021-07-06] MEDS ORDERED: TORS10TA3 PO (09:38)
[2021-07-06] MEDS ORDERED: PRAV40TA2 PO (09:38)
[2021-07-06] MEDS ORDERED: PANT40TA29 PO (09:38)
[2021-07-06] MEDS ORDERED: ASPI-161 PO (09:38)
[2021-07-06] MEDS ORDERED: ATEN25TA PO (09:38)
[2021-07-06] MEDS: PRAVASTATIN 20 MG TAB PO SCH (11:04)
[2021-07-06] MEDS: ASPIRIN 81MG ENTERIC TABLET PO SCH (11:04)
[2021-07-06] MEDS: PANTOPRAZOLE 40MG TAB (PROTONIX) PO SCH (11:04)
[2021-07-06] MEDS: GABAPENTIN 400MG CAP PO SCH (11:04)
[2021-07-06] MEDS: CLOPIDOGREL 75 MG TAB PO SCH (11:04)
[2021-07-06 11:05] VITALS: BP 150/68
[2021-07-06] MEDS: OMEGA-3 1000MG CAPSULE PO SCH (11:05)
[2021-07-06] MEDS: BACLOFEN 5MG PER 1/2 TABLET PO SCH (11:05)
[2021-07-06] MEDS: ACETAMINOPHEN 500 MG TAB PO SCH (11:06)
[2021-07-06] MEDS: LIDOCAINE 5% (LIDODERM) PATCH TD SCH (11:08)
[2021-07-06] MEDS: ATENOLOL 12.5MG PER 1/2 TABLET PO SCH (11:11)
[2021-07-06 14:00] VITALS: BP 134/0
--- NOTE | 2021-07-06 21:59 | IPNPDOC ---
Subjective CC/HPI The patient is a 81-year-old male admitted with a reason for visit of Peripheral Artery Disease. Events since last encounter Pt was seen in rehab today. Signs used to communicate. He is very happy that he is finally leaving the hospital today. Edema is almost gone. Rt ankle pain is better. Renal function stable with Cr 1.2. General: Denies: Chills, Night Sweats, Fatigue Constitutional: Denies: Chills, Fever, Malaise Eyes: Denies: Pain, Vision change ENT: Denies: Head Aches, Ear Pain Skin: Denies: Rash, Lesions Pulmonary: Denies: Dyspnea Gastrointestinal: Denies: Nausea, Vomiting Musculoskeletal: Reports: Joint Pain (Mild in Rt ankle); Denies: Neck Pain, Back Pain Neurological: Denies: Change in speech (Sign language) Psych: Reports: Mood Normal Objective Physical Examination General Exam: Alert, No Acute Distress, Other (Only communicates with writing or sign language); No: Cooperative, Mild Distress, Moderate Distress, Severe Distress EYE EXAM: PERRLA, Conjunctiva & lids normal, EOMI ENT EXAM: Atraumatic, Mucous membr. moist/pink Neck Exam: Supple; No: JVD Chest Exam: Clear to auscultation, Normal air movement Heart Exam: Rate Normal, Normal S1, Normal S2 ABDOMEN EXAM: Normal bowel sounds, Soft; No: Tenderness Extremity Exam: Edema (Trace edema, Rt foot brace) Skin Exam: No: Rash, Breakdown Neuro Exam: Strength at 5/5 X4 ext, Other (Sign language) Psych Exam: Mental status NL, Mood NL Vital Signs/I&O Vital Signs Date Time Temp Pulse Resp B/P (MAP) Pulse Ox O2 Delivery O2 Flow Rate FiO2 07/06/21 14:00 96.6 56 18 134/0 (44) 100 Room Air I&O- Last 24 Hours up to 6 AM 07/06/21 06:00 Intake Total 720 ml Output Total 2100 ml Balance -1380 ml Laboratory Data Labs 24H Laboratory Tests 2 07/06/21 07:06: Immature Granulocyte % (Auto) 0.2, Neutrophils (%) (Auto) 56.4, Lymphocytes (%) (Auto) 22.7L, Monocytes (%) (Auto) 13.2H, Eosinophils (%) (Auto) 6.3H, Basophils (%) (Auto) 1.2H, Neutrophils # (Auto) 3.3, Lymphocytes # (Auto) 1.3L, Monocytes # (Auto) 0.8, Eosinophils # (Auto) 0.4, Basophils # (Auto) 0.1, Nucleated Red Blood Cells % (auto) 0.0, Anion Gap 3L, Glomerular Filtration Rate 58.9, Calcium Level 9.5, Phosphorus Level 3.9, Albumin 3.2 CBC/BMP Laboratory Tests 07/06/21 07:06 Current Medications Current Medications Medications (Trade) Dose Ordered Sig/Geovany Route PRN Reason Start Time Stop Time Status Last Admin Dose Admin Acetaminophen (Tylenol Tab) 1,000 mg TID PO 06/19/21 21:00 07/06/21 18:47 DC 07/06/21 11:06 Albuterol/ Ipratropium (Combivent Respimat 100-20mcg) 1 puff RTID INH 06/19/21 20:00 07/06/21 18:47 DC 07/05/21 13:35 Amlodipine Besylate (Norvasc) 5 mg DAILY PO 06/23/21 09:00 06/23/21 11:57 DC 06/23/21 08:48 Aspirin (Ecotrin) 81 mg DAILY PO 06/20/21 09:00 07/06/21 18:47 DC 07/06/21 11:04 Atenolol (Tenormin) 12.5 mg DAILY PO 06/21/21 09:00 07/06/21 18:47 DC 07/06/21 11:11 Atenolol (Tenormin) 25 mg DAILY PO 06/20/21 09:00 06/20/21 17:09 DC 06/20/21 09:47 Baclofen (Lioresal) 5 mg BIDP PRN PO muscle spasm 06/28/21 16:25 06/29/21 15:39 DC 06/29/21 15:14 Baclofen (Lioresal) 5 mg TID PO 07/03/21 16:00 07/06/21 18:47 DC 07/06/21 11:05 Baclofen (Lioresal) 5 mg TID PRN PO back muscle spasm 06/29/21 21:00 07/03/21 10:37 DC 07/03/21 09:18 Bisacodyl (Dulcolax Suppository) 10 mg DAILYPRN PRN ID CONSTIPATION 06/19/21 15:25 07/06/21 18:47 DC Budesonide/ Formoterol Fumarate (Symbicort 160/ 4.5mcg) 2 puff RBID INH 06/19/21 20:00 07/06/21 18:47 DC 07/05/21 20:32 Clopidogrel Bisulfate (PLAVix) 75 mg DAILY PO 06/20/21 09:00 07/06/21 18:47 DC 07/06/21 11:04 Dextrose (Dextrose 50%) 25 ml ASDIRECTED PRN IV SEE LABEL COMMENTS 06/20/21 17:10 07/06/21 18:47 DC Docusate Sodium (Colace) 100 mg BID PO 06/19/21 21:00 07/06/21 18:47 DC 07/06/21 09:00 Emollient Cream (Vanicream) daily per wound care instructions DAILY TOP 06/21/21 09:00 06/26/21 09:10 DC 06/25/21 08:12 Emollient Cream (Vanicream) daily per wound care instructions DAILY@1700 TOP 06/26/21 17:00 07/06/21 18:47 DC 07/05/21 17:18 Enoxaparin Sodium (Lovenox) 40 mg DAILY SC 06/20/21 09:00 07/06/21 18:47 DC 07/05/21 09:14 Fish Oil (Howard-3 (1000mg)) 1 cap DAILY PO 06/20/21 09:00 07/06/21 18:47 DC 07/06/21 11:05 Furosemide (Lasix) 20 mg BID@,17 PO 06/21/21 13:30 06/21/21 13:59 DC Furosemide (Lasix) 40 mg DAILY PO 06/20/21 09:00 06/22/21 09:28 DC 06/22/21 08:33 Gabapentin (Neurontin) 100 mg TID PO 06/23/21 16:00 06/25/21 13:19 DC 06/25/21 08:10 Gabapentin (Neurontin) 200 mg TID PO 06/25/21 16:00 07/03/21 10:37 DC 07/03/21 09:19 Gabapentin (Neurontin) 400 mg TID PO 07/03/21 16:00 07/06/21 18:47 DC 07/06/21 11:04 Glucagon (Glucagon) 1 mg ASDIRECTED PRN SC SEE LABEL COMMENTS 06/20/21 17:10 07/06/21 18:47 DC Glucose (Glucose) 16 GM ASDIRECTED PRN PO SEE LABEL COMMENTS 06/20/21 17:10 07/06/21 18:47 DC Home Med (Home Med List Complete!) ASDIRECTED XX 06/26/21 07:35 06/26/21 07:38 DC Hydralazine HCl (Apresoline) 25 mg BID PO 06/28/21 21:00 06/29/21 12:49 DC 06/29/21 10:18 Hydralazine HCl (Apresoline) 25 mg TID PO 06/29/21 16:00 06/29/21 17:43 DC 06/29/21 17:31 Hydralazine HCl (Apresoline) 25 mg TID@0600,1400,2200 PO 06/29/21 22:00 07/06/21 18:47 DC 07/06/21 11:05 Insulin Human Lispro (HumaLOG INSULIN) SEE PROTOCOL TABLE AC SC 06/20/21 17:30 06/22/21 11:37 DC 06/22/21 08:31 Insulin Human Lispro (HumaLOG INSULIN) SEE PROTOCOL TABLE QHS SC 06/20/21 21:00 06/22/21 11:37 DC Latanoprost (Xalatan 0.005% Op Soln) 1 drop QHS OU 06/19/21 21:00 07/06/21 18:47 DC 07/05/21 21:07 Lidocaine (Lidoderm Patch) 1 patch DAILY TD 06/27/21 09:00 06/27/21 11:17 DC Lidocaine (Lidoderm Patch) 1 patch DAILY@0700 TD 06/27/21 07:00 07/03/21 10:37 DC 07/03/21 06:00 Lidocaine (Lidoderm Patch) 1 patch DAILY@0700 TD 06/21/21 07:00 07/03/21 14:33 DC 07/03/21 05:59 Lidocaine (Lidoderm Patch) 2 patch DAILY TD 07/04/21 09:00 07/06/21 18:47 DC 07/06/21 11:08 Lisinopril (Prinivil) 20 mg DAILY PO 06/21/21 09:00 06/22/21 09:27 DC 06/22/21 08:34 Magnesium Sulfate (Epsom Salt) daily at 5pm soak bilate... DAILY@1700 TOP 06/20/21 17:00 07/02/21 14:48 DC 07/01/21 14:34 Menthol/Methyl Salicylate (Bengay Cream) right side of abdomen just un... TID TOP 07/03/21 09:00 07/06/21 18:47 DC 07/05/21 21:07 Miscellaneous (Unresolved Clarification Entry) SEE LABEL COMMENTS DAILY XX 07/01/21 09:00 07/02/21 12:14 DC Non-Formulary Medication ( See Comment Field Below ) REMOVE LIDODERM PATC... DAILY@1700 XX 06/21/21 17:00 07/03/21 23:59 DC 07/03/21 16:04 Non-Formulary Medication ( See Comment Field Below ) REMOVE LIDODERM PATCH DAILY@21 XX 06/27/21 21:00 06/27/21 11:19 DC Non-Formulary Medication ( See Comment Field Below ) REMOVE LIDODERM PATCH DAILY@21 XX 07/04/21 21:00 07/06/21 18:47 DC 07/05/21 21:07 Oxycodone HCl (Roxicodone, Oxyir) 5 mg Q4HP PRN PO MODERATE PAIN (PS 5-7) 06/19/21 15:25 06/23/21 12:22 DC 06/23/21 08:45 Oxycodone HCl (Roxicodone, Oxyir) 7.5 mg Q4HP PRN PO PAIN LEVEL 6-10 06/23/21 12:25 07/03/21 15:05 DC 06/26/21 00:44 Pantoprazole Sodium (Protonix) 40 mg DAILY PO 06/20/21 09:00 07/06/21 18:47 DC 07/06/21 11:04 Pravastatin Sodium (Pravachol) 40 mg DAILY PO 06/20/21 09:00 07/06/21 18:47 DC 07/06/21 11:04 Pravastatin Sodium (Pravachol) 40 mg QHS PO 06/19/21 21:00 06/19/21 16:56 DC Senna (Senokot) 1 tab QHS PO 06/19/21 21:00 07/06/21 18:47 DC 07/05/21 21:04 Torsemide (Demadex) 10 mg BID@0900,1700 PO 07/01/21 17:00 07/06/21 18:47 DC 07/05/21 17:11 Torsemide (Demadex) 10 mg DAILY PO 06/27/21 09:00 07/01/21 11:33 DC 07/01/21 08:28 Torsemide (Demadex) 20 mg BID@09,17 PO 06/23/21 09:00 06/24/21 20:44 DC 06/24/21 17:04 Torsemide (Demadex) 20 mg DAILY PO 06/26/21 09:00 06/25/21 18:22 DC Allergies Coded Allergies: No Known Allergies (Verified , 03/25/18) Assessment/Plan Date Seen The patient was seen on 07/06/21 in AM. Plan / VTE VTE Prophylaxis Ordered?: Yes Plan Orders past 48 Hours Orders Renal Profile (07/06/21 06:00) Cbc With Auto Diff (07/06/21 06:00) Foot, Complete (07/05/21 13:06) Apply/Change Dressing (07/05/21 14:18) Discharge/Transfer Order (07/06/21 09:31) Patient Discharge Instruction (07/06/21 09:31) Plan Text CHERI . Cr stable ~1.1<-->1.2. HFpEF with grade 1 diastolic dysfunction Leg edema Hypertension Continue low dose diuretic for now. stable and improving renal function. HTN controlled with current regimen. OK to UT home on current diuretic. Follow up nephrology as outpatient MILTON DANIELS MD Jul 06, 2021 21:59
== END 2021-07-06 16:00 | disposition home health service (06) | DRG 300 ==
LOC: M PM&R 18:50
PROVIDERS: ADMIT Physical Medicine & Rehabilitation; ATTEND Physical Medicine & Rehabilitation
DX: E11.51 Type 2 diabetes mellitus with diabetic peripheral angiopathy without gangrene (principal); L97.819 Non-pressure chronic ulcer of other part of right lower leg with unspecified severity; L97.829 Non-pressure chronic ulcer of other part of left lower leg with unspecified severity; I50.32 Chronic diastolic (congestive) heart failure; J84.9 Interstitial pulmonary disease, unspecified; I13.0 Hypertensive heart and chronic kidney disease with heart failure and stage 1 through stage 4 chronic kidney disease, or unspecified chronic kidney disease; N17.9 Acute kidney failure, unspecified; G47.33 Obstructive sleep apnea (adult) (pediatric); E78.5 Hyperlipidemia, unspecified; E11.622 Type 2 diabetes mellitus with other skin ulcer; Z95.820 Peripheral vascular angioplasty status with implants and grafts; Z74.1 Need for assistance with personal care; Z74.09 Other reduced mobility; R53.1 Weakness; H91.93 Unspecified hearing loss, bilateral; Z87.891 Personal history of nicotine dependence; Z79.82 Long term (current) use of aspirin; Z79.899 Other long term (current) drug therapy; Z79.02 Long term (current) use of antithrombotics/antiplatelets; N18.2 Chronic kidney disease, stage 2 (mild); E66.9 Obesity, unspecified; D64.9 Anemia, unspecified

== ENCOUNTER 2021-07-25 16:15 | Inpatient (IN) | payer MEDICARE, OTHER ==
[~2021-07-25] VITALS: Ht 162.6 cm; Wt 103.9 kg
[~2021-07-25 16:15] MED LIST changes: +BACL10TA2 PO; +GABA-283 PO; +HYDR25TA PO; +MUSCCRE9 TOP; +PANT40TA29 PO; +TORS10TA3 PO
--- NOTE | 2021-07-25 18:52 | REP ---
INDICATION: leg swelling, shortness of breath. COMPARISON: 06/28/2021. TECHNIQUE: Single portable AP view of the chest was performed. FINDINGS: There is no acute infiltrate or pulmonary edema. Lungs are clear. The heart is upper limits of normal in size. The mediastinal silhouette is unremarkable. The visualized osseous structures are intact. IMPRESSION: No acute pulmonary disease. <Electronically signed by Dane Kahn > 07/25/21 [id number]
[2021-07-25 19:00] LABS: BASO # 0.1 10^3/uL (0.0-0.2); BASO % 0.8 % (0.0-1.0); EOS # 0.3 10^3/uL (0.0-0.5); EOS % 3.8 % (0.0-3.0); HEMATOCRIT 32.3 % (42.0-52.0); HEMOGLOBIN 10.4 g/dl (13.5-17.5); LYMPH % 14.4 % (24.0-44.0); MEAN CORPUSCULAR HEMOGLOBIN 30.1 pg (27.0-33.0); MEAN CORPUSCULAR HGB CONC 32.2 g/dl (32.0-36.5); MEAN CORPUSCULAR VOLUME 93.6 fl (80.0-96.0); MONO # 0.7 10^3/uL (0.0-0.8); MONO % 10.2 % (2.0-8.0); NEUTROPHILS # 5.1 10^3/uL (1.5-8.5); NEUTROPHILS % 70.4 % (36.0-66.0); PLATELET COUNT, AUTOMATED 270 10^3/uL (150-450); RED BLOOD COUNT 3.45 10^6/uL (4.30-6.10); WHITE BLOOD COUNT 7.2 10^3/uL (4.0-10.0)
[2021-07-25 19:20] LABS: ERYTHROCYTE SEDIMENTATION RATE 67 mm/hr (0-20)
[2021-07-25 19:30] LABS: ALBUMIN 2.9 GM/DL (3.2-5.2); ALT/SGPT 19 U/L (12-78); BILIRUBIN,TOTAL 0.5 MG/DL (0.2-1.0); BLOOD UREA NITROGEN 15 MG/DL (7-18); C REACTIVE PROTEIN QUANTITATIV 3.98 MG/DL (0.00-0.30); CALCIUM LEVEL 9.1 MG/DL (8.8-10.2); CARBON DIOXIDE LEVEL 28 MEQ/L (21-32); CHLORIDE LEVEL 110 MEQ/L (98-107); CK-MB VALUE MASS 2.9 NG/ML (<3.6); CPK CREATINE PHOSPHOKINASE 267 U/L (39-308); CREATININE FOR GFR 1.04 MG/DL (0.70-1.30); GLOMERULAR FILTRATION RATE > 60.0 (>35); GLUCOSE, FASTING 128 MG/DL (70-100); MB/CK RELATIVE INDEX 1.09 (< OR =4); NT-PRO BNP 296 PG/ML (<450); POTASSIUM SERUM 4.1 MEQ/L (3.5-5.1); SODIUM LEVEL 142 MEQ/L (136-145); TOTAL PROTEIN 6.7 GM/DL (6.4-8.2); TROPONIN I < 0.02 NG/ML (< 0.10)
--- NOTE | 2021-07-25 20:00 | REP ---
INDICATION: leg swelling bilat COMPARISON: 06/07/2021. TECHNIQUE: Real time compression and duplex Doppler interrogation of the bilateral lower extremity deep venous system is performed. Compression ultrasound is performed of the bilateral peroneal and posterior tibial veins. FINDINGS: Bilaterally, the common femoral, superficial femoral and popliteal veins are fully compressible with transducer pressure and demonstrate normal spontaneous and phasic flow, without evidence of deep venous thrombosis. The peroneal and posterior tibial veins could not be visualized bilaterally. IMPRESSION: No evidence of deep venous thrombosis of the bilateral lower extremity femoral popliteal venous system. <Electronically signed by Dane Kahn > 07/25/211955
[2021-07-25] MEDS ORDERED: BENG1CRE3 EXT (22:29)
[2021-07-25] MEDS ORDERED: PROAAER10 INH (22:29)
[2021-07-25] MEDS ORDERED: BACL10TA2 PO (22:29)
[2021-07-25] MEDS ORDERED: PANT40TA29 PO (22:29)
[2021-07-25] MEDS ORDERED: ASPI-161 PO (22:29)
[2021-07-25] MEDS ORDERED: TORS10TA3 PO (22:29)
[2021-07-25] MEDS ORDERED: BREO1INH INH (22:29)
[2021-07-25] MEDS ORDERED: HYDR25TA PO (22:29)
[2021-07-25] MEDS ORDERED: PRAV40TA2 PO (22:29)
[2021-07-25] MEDS ORDERED: GABA-283 PO (22:29)
[2021-07-25] MEDS ORDERED: ATEN25TA PO (22:29)
[2021-07-25] MEDS ORDERED: PLAV1TAB2 PO (22:29)
[2021-07-25] MEDS ORDERED: HOME MED LIST COMPLETE! XX SCH (22:35)
[2021-07-25] MEDS ORDERED: ALBUTEROL 90 MCG/ACT 8GM HFA INHALER INH PRN (23:30)
[2021-07-25] MEDS ORDERED: POLYVINYL ALCOHOL OPHTH SOLN 15 ML(LIQUITEARS) OU PRN (23:30)
[2021-07-25] MEDS ORDERED: BACLOFEN 5MG PER 1/2 TABLET PO PRN (23:30)
--- NOTE | 2021-07-25 23:31 | IPNPDOC ---
Text Note Date of Service The patient was seen on 07/25/21. NOTE ATTENDING ADDENDUM TIME OF SERVICE 935PM is an 81 yr old admitted for acute LLE cellulitis (ALT 70 score is 5 points). - start abx Rest per H&P VS,Fishbone, I+O VS, Fishbone, I+O Laboratory Tests 07/25/21 18:44 07/25/21 18:45 Vital Signs Date Time Temp Pulse Resp B/P (MAP) Pulse Ox O2 Delivery O2 Flow Rate FiO2 07/25/21 22:03 97.8 48 16 138/80 (99) 99 Room Air LUCINDA SALGADO MD Jul 25, 2021 23:31
--- NOTE | 2021-07-25 23:40 | HPEPDOC ---
[facility] Medical History & Physical Date of Admission Jul 25, 2021 Date of Service: Jul 25, 2021 Primary Care Physician: Harmeet Pike DO Other Provider Dr. Duque, wound care; [facility] (in the process of establishing) Attending Physician: LUCINDA SALGADO MD History and Physical CHIEF COMPLAINT: Leg swelling / The HPI and ROS was completed through the help of a press tender smoke signal (Isaklle). HISTORY OF PRESENT ILLNESS: is a very pleasant 69yo deaf male with notable PMHx of PAD s/p bilateral lower extremity balloon angioplasties, bilateral lower extremity ulcers and chronic venous stasis disease, HTN, restrictive lung disease & former smoker, dyslipidemia, NICOLAS not on CPAP, dCHF, melanoma s/p skin excisions, and CKD Stage II who presented to the ED via EMS on 07/25/21 with chief complaint of increased bilateral lower extremity swelling with associated redness, particularly of the RLE. Of note, the patient was recently admitted from for lower extremity cellulitis and sepsis. He was transferred over to ARU where he underwent therapy from . During his time in ARU, he suffered a fall and subsequently developed a nondisplaced fracture of his right lower extremity through the anterior aspect of the distal fibula. He was discharged from ARU as modified independent from a wheelchair level for mobility and activities of daily living. Over the past few days, there have been considerable issues at home. Patient reports increased swelling of bilateral lower extremities over the past few days, more extensive with the right lower extremity and associated warmth. He is also been experiencing some dizzy spells but denies any falls and is now predominantly wheelchair-bound. He is struggling to adapt to living alone and at home not specifically formatted for wheelchair dependent patient. Per recent records, he has been receiving [facility] home health but has been having issues tending to his wounds and their concerns for safety in the home. He is also been unable to keep his Aircast on over his fracture. Per [facility] health aide (Hope), the patient has been declining at home and they feel he needs assisted living. The daughter (Marina) also is in agreement and does not feel the patient is safe at home. REVIEW OF SYSTEMS: CONSTITUTIONAL: Denies fever, chills, night sweats, recent unintentional change in weight. CARDIOVASCULAR: Denies chest pain, chest pressure, or RESPIRATORY: No shortness of breath, pleuritic chest pain, or cough GASTROINTESTINAL: Denies abdominal pain, nausea, vomiting, diarrhea, or blood in stool GENITOURINARY: Denies dysuria or hematuria SKIN: Reports seeping wounds of bilateral lower extremities, more pronounced on the right MUSCULOSKELETAL: Reports that he is now effectively wheelchair-bound Extremities: Reports bilateral lower extremity swelling that is worsened from his baseline, particularly the right lower extremity with associated warmth. He denies any associated pain with this swelling but it is somewhat discomforting. PAST MEDICAL / SURGICAL HISTORY: Deafness Peripheral arterial disease status post bilateral lower extremity balloon angioplasties Bilateral lower extremity ulcers and chronic venous stasis disease; had been following with wound care (Dr. Duque) Diastolic congestive heart failure (last echo 05/31/2021 EF estimated 65%, findings suggestive of moderate elevated RVSP [21-47 mmHg], mild concentric LVH); on home torsemide -Chronic bilateral lower extremity edema with episodes of cellulitis treated with antibiotics in the past (most recent admission late 2020; s/p ARU stay and now largely wheelchair dependent) Restrictive lung disease and former smoker (quit around ) Chronic kidney disease stage II (developed CHERI on CKD during recent admission last month and was in the process of establishing as outpatient with nephrology) Obstructive sleep apnea, not currently on CPAP (per reports, patient has not used CPAP in 7 years) Hypertension Dyslipidemia Melanoma status post skin excision Onychomycosis Shoulder arthroplasty Skin excisions: 2 from the right side of face and 5 from the back Knee surgery, roughly 30 years ago Bilateral lower extremity angiogram and angioplasties -Left lower extremity angiogram and angioplasty, 08/17/2019 -Right lower extremity angiogram and angioplasty, 09/2019 Left lower leg surgery, 11/2020 SOCIAL HISTORY: Patient lives alone and is now largely wheelchair dependent after being discharged from ARU a few weeks ago. Patient has a daughter, Marina Horne who lives nearby ([phone]). He also has 2 other children. 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 Patient is a former smoker having quit around 2010. Patient smoked 3 packs/day of cigarettes for 45 years (0-86-opoy-year history) Denies any current alcohol use and quit drinking altogether in 2001. Denies any current or former illicit drug use. FAMILY HISTORY: Father: ; cancer / Mother: ; brain tumor / Has 3 children (2 sons and 1 daughter) who are all living. ALLERGIES: Please see below. HOME MEDICATIONS: Please see below. PHYSICAL EXAMINATION: VITAL SIGNS: Temperature 97.8, pulse 48, respiratory rate 16, blood pressure 138/80, pulse oximetry 99% on room air. GENERAL APPEARANCE: Pleasant obese elderly male lying flat in ED bed. He is deaf and medication occurs through press tender smoke signal. Alert and oriented x3. Does not appear to be in any acute distress. HEENT: Normocephalic, atraumatic. Noninjected, anicteric sclera. Mild conjunctival pallor is present. Wearing eyeglasses. PERRLA. EOMI. There is significant dandruff present. Oral cavity: Mallampati 4. MMM. Edentulous. Neck: Wide. No lymphadenopathy appreciated. CARDIOVASCULAR: Heart sounds are distant. Bradycardic rate, regular rhythm. Normal S1, S2. No murmurs or rubs are appreciated but again this is in the context of very distant heart sounds. (On EKG, first-degree AV block with SD interval of 0.21) LUNGS: Clear to auscultation bilaterally with no adventitious breath sounds appreciated. Symmetric chest expansion. No accessory muscle use. Breathing room air. ABDOMEN: Soft, obese, nontender. There is some fullness periumbilically but no significant distention. Normoactive bowel sounds throughout. No guarding or rigidity appreciated. Hepatosplenomegaly and palpable masses difficult to assess for in the setting of habitus. MUSCULOSKELETAL: 5/5 muscle strength of upper and lower extremities bilaterally. EXTREMITIES: There is bilateral lower extremity pitting edema, approximately 12+ and greater on the right. There are signs bilaterally of chronic venous stasis changes with associated skin peeling. There is induration of the skin of bilateral lower extremities indicative of chronic venous stasis. There is more erythema of the right lower extremity as compared to the left with fluid-filled vesicles. There are no open ulcers. There is also pedal edema of the right foot that is approximately 2+ pitting. There is bilateral onychomycosis. There is some erythema of the dorsum of the distal aspect of the left foot with skin peeling. 2+ radial and dorsalis pedis pulses bilaterally. NEUROLOGICAL: Patient is deaf (chemistry lab instructor used). Other than deafness, no gross focal neurologic deficits appreciated. Responding appropriate all questions and commands via the chemistry lab instructor. Alert and oriented x3. PSYCHIATRIC: Pleasant mood. Appropriate appearing affect. LABORATORY DATA: Please see below. IMAGING: Portable chest x-ray, 07/25/2021 FINDINGS: There is no acute infiltrate or pulmonary edema. Lungs are clear. The heart is upper limits of normal in size. The mediastinal silhouette is unremarkable. The visualized osseous structures are intact. IMPRESSION: No acute pulmonary disease. Duplex bilateral lower extremity vascular ultrasound, 07/25/2021 FINDINGS: There is no acute infiltrate or pulmonary edema. Lungs are clear. The heart is upper limits of normal in size. The mediastinal silhouette is unremarkable. The visualized osseous structures are intact. IMPRESSION: No acute pulmonary d isease. MICROBIOLOGY: Please see below. ASSESSMENT & PLAN: This is an 81yo male w/ notable h/o deafness, PAD s/p b/l angioplasties w/ chronic venous stasis and ulcers, dCHF, HTN, NICOLAS not on CPAP, restrictive lung dz and former smoker (135pyh), who presented via EMS on 07/25/21 for worsening b/l LE edema (rt > lt) with increased warmth of RLE. He was recently admitted for sepsis from lower extremity cellulitis at the end of May 2021 after which she completed nearly 3 weeks in ARU for rehab. In addition to his lower extremity complaints there are significant concerns regarding his safety at home now that he is wheelchair-bound and lives alone. Essentially was admitted for possible right lower extremity cellulitis as well as evaluation for possible placement. #Right lower extremity swelling - possibly 2/2 cellulitis i/s/o chronic venous stasis with bilateral lower extremity swelling/ulceration/PAD -Patient complaining of increased swelling of both lower extremities but more pronounced over the right with associated right leg erythema -This is a chronic recurrent issue for patient, most recently during admission at the end of May through early June 2021 (he was septic and was administered IV antibiotics) -He has been following as outpatient with wound care (Dr. Duque) -He also had a nondisplaced fracture through the anterior aspect of the distal fibula after sustaining a fall last month while in ARU; due to his multiple comorbidities surgery was not indicated and has been using an Aircast -Based on today's examination and using the ALT70 score for possible cellulitis, due to patient's age and increased swelling of the right leg versus the left, his score was 5 points which indicates treatment should be administered for cellulitis -Of note, the patient is afebrile with no leukocytosis and a negative lactic -Due to the lack of concerning infection signs, oral antibiotics were chosen over IV (amoxicillin) -Of note, patient did have elevated ESR and CRP but these are actually somewhat improved over the values during his last admission last month -A bilateral lower extremity ultrasound in the ED showed no signs concerning for DVT -Orders have been placed for patient's right lower extremity to be elevated #Peripheral arterial disease status post bilateral balloon angioplasties with lower extremity ulcers i/s/o chronic venous stasis disease -Patient's home clopidogrel and aspirin were continued upon admission -He is currently following with Dr. Duque of wound care for outpatient management #Chronic Diastolic congestive heart failure -Echocardiogram from 2 months ago showed EF of 60% with moderately increased right ventricular systolic pressures (20-47 mmHg) with grade 1 left ventricular diastolic dysfunction -Patient's outpatient diuretics recently changed from furosemide to torsemide -Serum creatinine was 1.04 upon admission today (recent baseline 1.1) -Home torsemide continue #First-degree AV block / Bradycardia -Patient's heart rate was in the mid 40s to mid 50s at time of evaluation. -EKG showed a SD interval of 0.21 -Patient is complained of some dizziness without any falls over the past 72 hours -As patient's pressures were relatively well controlled in the 130 systolic and 80 diastolic upon admission, his home atenolol was initially not continued -Of note, during recent admission, SD interval was measured at 0.19 #Nondisplaced fracture through the anterior aspect of the right distal fibula -Patient was evaluated by Ortho during admission last month and due to multiple comorbidities surgical intervention not warranted -Patient was in the process of establishing with Ortho as an outpatient and has been using an Aircast #CKD stage II -Patient is in the process of establishing with nephrology as outpatient -He had acute renal failure superimposed on CKD stage II during admission last month; after which his home TELLY inhibitor medication was stopped #Obstructive sleep apnea, not currently using CPAP -Oxygen titration and continuous pulse ox orders have been placed. -Patient was saturating well on room air at time of admission. -A chest x-ray was unremarkable for any acute processes #Social concerns in the setting of worsening debility -Patient was discharged from acute rehab unit last month after completing nearly 3 weeks of rehab. Documentation upon discharge from ARU states that patient was "modified independent from a wheelchair level for mobility and ADLs." -Patient lives alone and is essentially now wheelchair-bound. Per recent outpatient records, his home health aide and daughter have significant concerns for his ability to function alone as well as his overall safety-the patient's daughter and home health aide feel the patient likely would benefit from placement -PFS as well as PT and OT orders have been placed for evaluation #Class 2 obesity -complicates care #DVT prophylaxis: Subcu heparin CODE STATUS: Full code Disposition: home after at least 2 midnight's care Laboratory Data Labs 24H Laboratory Tests 2 07/25/21 18:43: Coronavirus (COVID-19)(PCR) NEGATIVE 07/25/21 18:44: Immature Granulocyte % (Auto) 0.4, Neutrophils (%) (Auto) 70.4H, Lymphocytes (%) (Auto) 14.4L, Monocytes (%) (Auto) 10.2H, Eosinophils (%) (Auto) 3.8H, Basophils (%) (Auto) 0.8, Neutrophils # (Auto) 5.1, Lymphocytes # (Auto) 1.0L, Monocytes # (Auto) 0.7, Eosinophils # (Auto) 0.3, Basophils # (Auto) 0.1, Nucleated Red Blood Cells % (auto) 0.0, Erythrocyte Sedimentation Rate 67H 07/25/21 18:45: Anion Gap 4L, Glomerular Filtration Rate > 60.0, Calcium Level 9.1, Total Bilirubin 0.5, Aspartate Amino Transf (AST/SGOT) 20, Alanine Aminotransferase (ALT/SGPT) 19, Alkaline Phosphatase 84, Total Creatine Kinase 267, Creatine Kinase MB 2.9, Creatine Kinase MB Relative Index 1.09, Troponin I < 0.02, C- Reactive Protein, Quantitative 3.98H, AP-Piy-K-Type Natriuretic Peptide 296, Total Protein 6.7, Albumin 2.9L, Albumin/Globulin Ratio 0.8 07/25/21 18:58: POC Lactate (Misc Panel) 0.94 CBC/BMP Laboratory Tests 07/25/21 18:44 07/25/21 18:45 Home Medications Scheduled Aspirin (Aspirin EC) 81 Mg Tablet.dr, 81 MG PO DAILY Atenolol (Atenolol) 25 Mg Tablet, 12.5 MG PO DAILY HOLD IF HR<60, HOLD IF BLODD PRESSURE IS LOW Clopidogrel Bisulfate (Plavix) 75 Mg Tablet, 75 MG PO DAILY Eyelid Cleanser Comb No.7 (Ocusoft Lid Scrub) 1 Each Kit, 1 DOSE TOP BID Fluticasone/Vilanterol (Breo Ellipta 100-25 Mcg INH) 1 Each Blst.w.dev, 1 PUFF INH DAILY Gabapentin (Gabapentin) 400 Mg Capsule, 400 MG PO TID Hydralazine HCl (Hydralazine HCl) 25 Mg Tablet, 25 MG PO TID 0600, 1400, 2200 Latanoprost (Xalatan) 0.005% 2.5ML Drops, 1 DROP OU QHS [place]-3 Fatty Acids/Fish Oil (Fish Oil 1,000 mg Capsule) 1 Each Capsule, 1,000 M G PO DAILY Pantoprazole Sodium (Pantoprazole Sodium) 40 Mg Tablet.dr, 40 MG PO DAILY Pravastatin Sodium (Pravastatin Sodium) 40 Mg Tablet, 40 MG PO DAILY Psyllium Husk (Reguloid) 0.4 Gm Capsule, 800 MG PO TID Torsemide (Torsemide) 10 Mg Tablet, 10 MG PO BID 0900, 1700 Scheduled PRN Albuterol Sulfate (Proair Hfa) 8.5 Gm Hfa.aer.ad, 2 PUFF INH QID PRN for SHORTNESS OF BREATH Baclofen (Baclofen) 10 Mg Tablet, 5 MG PO TID PRN for MUSCLE SPASMS Carboxymethyl/Glycerin/Poly80 (Refresh Optive Advanced Drops) 10 Ml Drops, 1 DROP OU QID PRN for DRY EYES Methyl Salicylate/Menthol (Bengay Greaseless Cream) 57 Gm Cream..g., 1 DOSE EXT TID PRN for MILD PAIN (PS 1-4) Allergies Coded Allergies: No Known Allergies (Verified , 03/25/18) Attending Note Attending Note ATTENDING ADDENDUM TIME OF SERVICE 935PM is an 81 yr old admitted for acute RLE cellulitis (ALT 70 score is 5 points). - start abx Rest per H&P TEAGAN CONROY D.O. Jul 25, 2021 23:40 LUCINDA SALGADO MD Jul 26, 2021 06:05
[2021-07-26] MEDS ORDERED: MOM 30ML SUSPENSION UDC PO PRN (00:05)
[2021-07-26] MEDS ORDERED: MAALOX 30 ML SUSP *UDC PO PRN (00:05)
[2021-07-26] MEDS: **hydrALAZINE HCL** 25 MG TAB PO SCH ×4 (04:23→22:32)
[2021-07-26] MEDS: GABAPENTIN 400MG CAP PO SCH ×4 (04:23→22:29)
[2021-07-26] MEDS: TORSEMIDE 10 MG TABLET PO SCH ×3 (04:24→15:58)
[2021-07-26] MEDS: ACETAMINOPHEN 650MG ER TAB (TYLENOL ARTHRITIS) PO SCH ×4 (04:35→22:29)
[2021-07-26] MEDS: LATANOPROST 0.005% OPHTH SOLN 2.5 ML OU SCH ×2 (04:36→22:29)
[2021-07-26] MEDS: SYMBICORT 160/4.5MCG INHALER 6GM INH SCH ×3 (04:36→20:37)
[2021-07-26] MEDS: AMOXICILLIN 500 MG CAP PO SCH ×3 (06:37→22:29)
[2021-07-26] MEDS: HEPARIN SOD (PORCINE) 5000UNITS/ML 1ML VIAL/SYRINGE SC SCH ×3 (06:39→22:30)
[2021-07-26 08:22] LABS: HEMATOCRIT 36.8 % (42.0-52.0); HEMOGLOBIN 11.8 g/dl (13.5-17.5); MEAN CORPUSCULAR HEMOGLOBIN 29.9 pg (27.0-33.0); MEAN CORPUSCULAR HGB CONC 32.1 g/dl (32.0-36.5); MEAN CORPUSCULAR VOLUME 93.2 fl (80.0-96.0); PLATELET COUNT, AUTOMATED 262 10^3/uL (150-450); RED BLOOD COUNT 3.95 10^6/uL (4.30-6.10); WHITE BLOOD COUNT 7.6 10^3/uL (4.0-10.0)
[2021-07-26 08:45] LABS: ALBUMIN 3.1 GM/DL (3.2-5.2); ALT/SGPT 20 U/L (12-78); BILIRUBIN,TOTAL 0.6 MG/DL (0.2-1.0); BLOOD UREA NITROGEN 12 MG/DL (7-18); CALCIUM LEVEL 9.9 MG/DL (8.8-10.2); CARBON DIOXIDE LEVEL 32 MEQ/L (21-32); CHLORIDE LEVEL 107 MEQ/L (98-107); CREATININE FOR GFR 0.94 MG/DL (0.70-1.30); GLOMERULAR FILTRATION RATE > 60.0 (>35); GLUCOSE, FASTING 102 MG/DL (70-100); MAGNESIUM LEVEL 2.2 MG/DL (1.8-2.4); POTASSIUM SERUM 3.8 MEQ/L (3.5-5.1); SODIUM LEVEL 143 MEQ/L (136-145); TOTAL PROTEIN 7.4 GM/DL (6.4-8.2)
[2021-07-26] MEDS ORDERED: atenoloL 25 MG TAB PO SCH (09:00)
[2021-07-26] MEDS: PANTOPRAZOLE 40MG TAB (PROTONIX) PO SCH (09:19)
[2021-07-26] MEDS: ASPIRIN 81MG ENTERIC TABLET PO SCH (09:19)
[2021-07-26] MEDS: PRAVASTATIN 20 MG TAB PO SCH (09:19)
[2021-07-26] MEDS: CLOPIDOGREL 75 MG TAB PO SCH (09:19)
[2021-07-26 13:30] VITALS: BP 129/60
--- NOTE | 2021-07-26 13:47 | IPNPDOC ---
Text Note Date of Service The patient was seen on 07/26/21. NOTE Subjective: Patient is an 81-year-old male who presented to the hospital with worsening right lower extremity wounds as well as inability to care for himself. Patient was recently discharged from [facility] and has had a visiting home health aide who assist the patient has been declining at home and feels like they need placement either assisted living or nursing home facility. Apparently the patient was found soiled and was unable to care for himself at this time. Patient only complains of right leg pain. Patient is deaf and history and review of systems was performed via video triage assistant Review of systems: General: Patient denies fevers HEENT: Patient denies headaches Cardiovascular: Patient denies chest pain Respiratory: Patient denies shortness of breath, cough GI: Patient denies abdominal pain, nausea, vomiting, diarrhea : Patient denies increased frequency or pain with urination Extremities: Patient reports pain in his legs as above Neurological: Patient denies numbness or tingling in legs Physical exam: Vitals: See below General: Alert and oriented male patient who was sitting in bed when I walked in. Patient not appear to be in any acute distress. HEENT: Normocephalic, atraumatic, moist mucous membranes. Neck: No lymphadenopathy or thyromegaly Cardiac: Regular rate and rhythm, no murmurs, normal S1, normal S2 Pulm: Clear to auscultation bilaterally. No wheezes, rhonchi, rales Abd: Nondistended, nontender to palpation, normal bowel sounds Ext: Bilateral lower extremities show chronic venous stasis changes with the right leg being more pink having blisters scattered about but no purulent drainage. There is pedal edema on the feet bilaterally. Labs: See below Imaging: No new imaging has been performed Assessment/plan: 81-year-old male who presented to the hospital with worsening lower extremity wounds and inability to care for himself. 1. Right lower extremity swelling possible cellulitis. Admitting team started the patient on oral amoxicillin for possible cellulitis. Patient appears to have venous stasis changes in his bilateral lower extremities. Patient is afebrile and does not have a leukocytosis. Patient can have 5 to 7 days of amoxicillin. We will continue with wound care as prescribed by his streaming media specialist. Patient will need to keep his legs elevated above his heart for the majority of his time in the hospital. 2. Peripheral arterial disease status post bilateral balloon angioplasty lower extremity ulcers. Continue aspirin Plavix. 3. Need ability to care for himself. Patient will most likely need placement. PT and OT have been ordered. Patient was recently in the acute rehab unit prior to being discharged. 4. Congestive heart failure with preserved ejection fraction. Patient had an echocardiogram performed 2 months ago with an ejection fraction of 60%. Patient does not appear to be in exacerbation at this time. 5. 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 Atenolol has been held. 6. Nondisplaced fracture of the anterior aspect of the right distal fibula. Evaluated by orthopedic surgery last month and due to multiple comorbidities, s urgical intervention was not warranted. Has been using an Aircast. 7. Chronic kidney disease stage II. Avoid nephrotoxic agents and will continue to monitor. 8. Obstructive sleep apnea, not using CPAP. We will continue monitor patient's oxygen saturations while he is inpatient. DVT Prophylaxis: Heparin Disposition: Pending possible placement VSSimon, I+O VSSimon, I+O Laboratory Tests 07/25/21 18:44 07/25/21 18:45 07/26/21 08:04 Vital Signs Date Time Temp Pulse Resp B/P (MAP) Pulse Ox O2 Delivery O2 Flow Rate FiO2 07/26/21 13:14 97.4 60 18 136/63 (87) 95 Room Air MAR MATIAS DO Jul 26, 2021 13:47
[2021-07-26 21:00] VITALS: BP 106/56
[2021-07-27 05:25] VITALS: BP 145/62
[2021-07-27] MEDS: HEPARIN SOD (PORCINE) 5000UNITS/ML 1ML VIAL/SYRINGE SC SCH ×3 (05:35→23:27)
[2021-07-27] MEDS: AMOXICILLIN 500 MG CAP PO SCH ×3 (05:35→23:27)
[2021-07-27] MEDS: **hydrALAZINE HCL** 25 MG TAB PO SCH ×3 (05:37→23:27)
[2021-07-27] MEDS: ACETAMINOPHEN 650MG ER TAB (TYLENOL ARTHRITIS) PO SCH ×3 (07:30→23:28)
[2021-07-27] MEDS: SYMBICORT 160/4.5MCG INHALER 6GM INH SCH ×2 (07:46→20:00)
--- NOTE | 2021-07-27 08:01 | ECGEPIP ---
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
[2021-07-27] MEDS: TORSEMIDE 10 MG TABLET PO SCH ×2 (09:27→17:36)
[2021-07-27] MEDS: ASPIRIN 81MG ENTERIC TABLET PO SCH (09:28)
[2021-07-27] MEDS: PANTOPRAZOLE 40MG TAB (PROTONIX) PO SCH (09:28)
[2021-07-27] MEDS: CLOPIDOGREL 75 MG TAB PO SCH (09:28)
[2021-07-27] MEDS: PRAVASTATIN 20 MG TAB PO SCH (09:28)
[2021-07-27] MEDS: GABAPENTIN 400MG CAP PO SCH ×3 (09:28→23:27)
[2021-07-27 14:00] VITALS: BP 125/74
--- NOTE | 2021-07-27 15:53 | IPNPDOC ---
Text Note Date of Service The patient was seen on 07/27/21. NOTE Subjective: Patient is an 81-year-old male who presented to the hospital worsening right lower extremity wounds as well as inability to care for himself. Patient was recently discharged in [facility] has a visiting home health aide who was stating the patient has been declining at home and feels like they had any placed in assisted living or longterm facility. Adrian granados was apparently found soiled or unable to care for himself at this time. Patient only complains of right leg pain. Patient is deaf and history and review of systems was performed via in person lang interpreter. Review of systems: General: Patient denies fevers HEENT: Patient denies headaches Cardiovascular: Patient denies chest pain Respiratory: Patient denies shortness of breath, cough GI: Patient denies abdominal pain, nausea, vomiting, diarrhea : Patient denies increased frequency or pain with urination Extremities: Patient denies swelling or pain in extremities Neurological: Patient denies numbness or tingling in legs Physical exam: Vitals: See below General: Alert and oriented male patient who was sitting in wheelchair next to his bed when I walked in. Patient did not appear to be in any acute distress HEENT: Normocephalic, atraumatic, moist mucous membranes. Neck: No lymphadenopathy or thyromegaly Cardiac: Regular rate and rhythm, no murmurs, normal S1, normal S2 Pulm: Clear to auscultation bilaterally. No wheezes, rhonchi, rales Abd: Nondistended, nontender to palpation, normal bowel sounds Ext: Bilateral lower extremities show chronic venous stasis changes with the right leg being more pink having blisters scattered about but no purulent drain age. There is pedal edema on the feet bilaterally. Labs: See below Imaging: No new imaging has been performed Assessment/plan: 81-year-old male presented to hospital with worsening lower extremity wounds and inability to care for himself. 1. Right lower extremity swelling possible cellulitis. Admitting team started the patient on amoxicillin for possible cellulitis. Patient continues for 5 to 7 days. Patient has venous stasis changes. I instructed the patient to keep his leg elevated above his heart for the majority of the time he is awake and to keep his legs above his heart when he is sleeping. Patient states that he will attempt to do this after he ate lunch. 2. Peripheral artery disease status post bilateral balloon angioplasty. Patient has lower extremity ulcers. Continue aspirin and Plavix. 3. Inability to care for himself. Patient may need placement however, we will work with patient to see if acute rehab is what the patient needs. Patient had a fibular fracture and needs to be able to be weightbearing in order to go to acute rehab. Repeat x-rays have been ordered. 4. Right fibular fracture. This was seen on ankle MRI. I spoke with orthopedic surgery who suggested getting an ankle x-ray. Patient may be able to be weightbearing if the x-ray does not show the fracture. 5. Congestive heart failure preserved ejection fraction. Patient echocardiogram performed 2 months ago showed an ejection fraction of 60%. Does not appear to be in exacerbation at this time. 6. 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 Atenolol has been held. 7. CKD stage II. Avoid nephrotoxic agents continue to monitor. 8. Obstructive sleep apnea, not using CPAP. Continue to monitor the patient oxygen saturations while he is inpatient. DVT Prophylaxis: Heparin Disposition: Pending possible ARU placement or subacute rehab VS,[place], I+O VS, Fishbone, I+O Vital Signs Date Time Temp Pulse Resp B/P (MAP) Pulse Ox O2 Delivery O2 Flow Rate FiO2 07/27/21 05:37 145/62 07/27/21 05:25 96.8 52 18 96 Room Air I&O- Last 24 Hours up to 6 AM 07/27/21 06:00 Intake Total 910 ml Output Total 500 ml Balance 410 ml MAR MATIAS DO Jul 27, 2021 15:53
--- NOTE | 2021-07-27 16:13 | REP ---
INDICATION: fracture of right fibula COMPARISON: 06/10/2021 TECHNIQUE: AP, lateral, bilateral oblique views. FINDINGS: Soft tissue swelling is again noted. Age-related osteopenia and degenerative changes are identified. No obvious acute fracture or dislocation. Ankle mortise appears grossly intact. IMPRESSION: Swelling. Age-related changes. No acute fracture or dislocation identified. <Electronically signed by Xavier Maradiaga > 07/27/21 [id number]
--- NOTE | 2021-07-27 18:24 | CR.PDOC ---
General Date of Consultation: Jul 27, 2021 Consultation REASON FOR CONSULTATION/CHIEF COMPLAINT: [Asked to determine weightbearing status right ankle HISTORY OF PRESENT ILLNESS: [Patient is an 81-year-old male who presented to the hospital worsening right lower extremity wounds as well as inability to care for himself. Patient was recently discharged in [facility] has a visiting home health aide who was stating the patient has been declining at home and feels like they had any placed in assisted living or care home facility. Patient was apparently found soiled or unable to care for himself at this time. Patient only complains of right leg pain. Patient is deaf and history and review of systems was performed via in person boat dispatcher. ]. ALLERGIES: Please see below. HOME MEDICATIONS: Please see below. PAST MEDICAL HISTORY: Deafness Peripheral arterial disease status post bilateral lower extremity balloon angioplasties Bilateral lower extremity ulcers and chronic venous stasis disease; had been following with wound care (Dr. Duque) Diastolic congestive heart failure (last echo 05/31/2021 EF estimated 65%, findings suggestive of moderate elevated RVSP [21-47 mmHg], mild concentric LVH); on home torsemide -Chronic bilateral lower extremity edema with episodes of cellulitis treated with antibiotics in the past (most recent admission late 2020; s/p ARU stay and now largely wheelchair dependent) Restrictive lung disease and former smoker (quit around ) Chronic kidney disease stage II (developed CHERI on CKD during recent admission last month and was in the process of establishing as outpatient with nephrology) Obstructive sleep apnea, not currently on CPAP (per reports, patient has not used CPAP in 7 years) Hypertension Dyslipidemia Melanoma status post skin excision Onychomycosis PAST SURGICAL HISTORY: Shoulder arthroplasty Skin excisions: 2 from the right side of face and 5 from the back Knee surgery, roughly 30 years ago Bilateral lower extremity angiogram and angioplasties -Left lower extremity angiogram and angioplasty, 08/17/2019 -Right lower extremity angiogram and angioplasty, 09/2019 Left lower leg surgery, 11/2020 SOCIAL HISTORY: Patient lives alone and is now largely wheelchair dependent after being discharged from ARU a few weeks ago. Patient has a daughter, Marina Horne who lives nearby ([phone]). He also has 2 other children. 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 Patient is a former smoker having quit around 2010. Patient smoked 3 packs/day of cigarettes for 45 years (4-29-quyi-year history) Denies any current alcohol use and quit drinking altogether in 2001. Denies any current or former illicit drug use. FAMILY HISTORY: Father: ; cancer Mother: ; brain tumor Has 3 children (2 sons and 1 daughter) who are all living. ALLERGIES: Please see below. REVIEW OF SYSTEMS: CONSTITUTIONAL: Denies fever, chills, night sweats, recent unintentional change in weight. CARDIOVASCULAR: Denies chest pain, chest pressure, or RESPIRATORY: No shortness of breath, pleuritic chest pain, or cough GASTROINTESTINAL: Denies abdominal pain, nausea, vomiting, diarrhea, or blood in stool GENITOURINARY: Denies dysuria or hematuria SKIN: Reports seeping wounds of bilateral lower extremities, more pronounced on the right MUSCULOSKELETAL: Reports that he is now effectively wheelchair-bound Extremities: Reports bilateral lower extremity swelling that is worsened from his baseline, particularly the right lower extremity with associated warmth. He denies any associated pain with this swelling but it is somewhat discomforting. Examination Patient resting comfortably in bed Friend boat dispatcher at the side Discussed his peripheral vascular disease and ulcers of his feet Previously seen with MRI diagnosis lateral malleolar fracture Repeat x-rays today show no acute fracture Sterile dressing and stocks over his feet Patient is able to move his ankles knee and hip More posterior today was to discuss his weightbearing status Assessment. Elderly gentleman improved with significant peripheral vascular disease and chronic venous stasis. Nonhealing ulcer of his foot. Most likely severe osteoporosis of his foot previous traumatic nondisplaced ankle fracture seen on MRI. At this point x-rays show no acute fractures. He can weight-bear as tolerated through the ankle. Of course given his osteoporosis chronic ulcers he is at risk for fractures and further ulceration. Patient needs to be weightbearing to be accepted to rehab. We discussed at length. Plan: Weightbearing as tolerated bilateral feet. Suggest mobilize with walker as he is a fall risk. He is not a candidate for surgery given his severe peripheral vascular disease Vital Signs/I&O Vital Signs Date Time Temp Pulse Resp B/P (MAP) Pulse Ox O2 Delivery O2 Flow Rate FiO2 07/27/21 17:35 134/67 07/27/21 05:25 96.8 52 18 96 Room Air I&O- Last 24 Hours up to 6 AM 07/27/21 06:00 Intake Total 910 ml Output Total 500 ml Balance 410 ml Allergies Coded Allergies: No Known Allergies (Verified , 03/25/18) Home Medications Scheduled Aspirin (Aspirin EC) 81 Mg Tablet.dr, 81 MG PO DAILY, (Reported) Atenolol (Atenolol) 25 Mg Tablet, 12.5 MG PO DAILY, (Reported) HOLD IF HR<60, HOLD IF BLODD PRESSURE IS LOW Clopidogrel Bisulfate (Plavix) 75 Mg Tablet, 75 MG PO DAILY, (Reported) Eyelid Cleanser Comb No.7 (Ocusoft Lid Scrub) 1 Each Kit, 1 DOSE TOP BID, (Reported) Fluticasone/Vilanterol (Breo Ellipta 100-25 Mcg INH) 1 Each Blst.w.dev, 1 PUFF INH DAILY, (Reported) Gabapentin (Gabapentin) 400 Mg Capsule, 400 MG PO TID, (Reported) Hydralazine HCl (Hydralazine HCl) 25 Mg Tablet, 25 MG PO TID, (Reported) 0600, 1400, 2200 Latanoprost (Xalatan) 0.005% 2.5ML Drops, 1 DROP OU QHS, (Reported) [place]-3 Fatty Acids/Fish Oil (Fish Oil 1,000 mg Capsule) 1 Each Capsule, 1,000 MG PO DAILY, (Reported) Pantoprazole Sodium (Pantoprazole Sodium) 40 Mg Tablet.dr, 40 MG PO DAILY, (Reported) Pravastatin Sodium (Pravastatin Sodium) 40 Mg Tablet, 40 MG PO DAILY, (Reported) Psyllium Husk (Reguloid) 0.4 Gm Capsule, 800 MG PO TID, (Reported) Torsemide (Torsemide) 10 Mg Tablet, 10 MG PO BID, (Reported) 0900, 1700 Scheduled PRN Albuterol Sulfate (Proair Hfa) 8.5 Gm Hfa.aer.ad, 2 PUFF INH QID PRN for SHORTNESS OF BREATH, (Reported) Baclofen (Baclofen) 10 Mg Tablet, 5 MG PO TID PRN for MUSCLE SPASMS, (Reported) Carboxymethyl/Glycerin/Poly80 (Refresh Optive Advanced Drops) 10 Ml Drops, 1 DROP OU QID PRN for DRY EYES, (Reported) Methyl Salicylate/Menthol (Bengay Greaseless Cream) 57 Gm Cream..g., 1 DOSE EXT TID PRN for MILD PAIN (PS 1-4), (Reported) RAÚL HANSON MD Jul 27, 2021 18:24
[2021-07-27 21:12] VITALS: BP 166/70
[2021-07-27] MEDS: LATANOPROST 0.005% OPHTH SOLN 2.5 ML OU SCH (23:28)
[2021-07-28 06:36] VITALS: BP 120/75
[2021-07-28] MEDS: AMOXICILLIN 500 MG CAP PO SCH ×3 (06:38→21:52)
[2021-07-28] MEDS: HEPARIN SOD (PORCINE) 5000UNITS/ML 1ML VIAL/SYRINGE SC SCH ×3 (06:38→21:53)
[2021-07-28] MEDS: **hydrALAZINE HCL** 25 MG TAB PO SCH ×3 (06:39→21:52)
[2021-07-28] MEDS: SYMBICORT 160/4.5MCG INHALER 6GM INH SCH ×2 (07:23→19:37)
[2021-07-28] MEDS: NYSTATIN 100,000 UNITS/GM TOPICAL PWD 15 GM TOP SCH ×2 (09:00→21:51)
[2021-07-28] MEDS: ACETAMINOPHEN 650MG ER TAB (TYLENOL ARTHRITIS) PO SCH ×3 (10:06→23:24)
[2021-07-28] MEDS: DOCUSATE SODIUM 100MG CAPSULE PO SCH ×2 (10:06→21:52)
[2021-07-28] MEDS: GABAPENTIN 400MG CAP PO SCH ×3 (10:07→21:52)
[2021-07-28] MEDS: TORSEMIDE 10 MG TABLET PO SCH ×2 (10:07→16:04)
[2021-07-28] MEDS: PANTOPRAZOLE 40MG TAB (PROTONIX) PO SCH (10:07)
[2021-07-28] MEDS: PRAVASTATIN 20 MG TAB PO SCH (10:07)
[2021-07-28] MEDS: ASPIRIN 81MG ENTERIC TABLET PO SCH (10:07)
[2021-07-28] MEDS: CLOPIDOGREL 75 MG TAB PO SCH (10:07)
[2021-07-28 14:00] VITALS: BP 120/60
--- NOTE | 2021-07-28 14:43 | IPNPDOC ---
Text Note Date of Service The patient was seen on 07/28/21. NOTE Subjective: Patient is an 81-year-old male presented to the hospital with worsening right lower extremity wounds and inability to care for himself. Patient was recently discharged from [facility] and had a visiting home health nurse who stated the patient was declining at home and feels like he needs to be placed in assisted living or prison facility. Patient was apparently found soiled or unable to care for himself at this time. Patient only complains of right leg pain. Patient is deaf and history and review of systems performed via in person child advocate Review of systems: General: Patient denies fevers HEENT: Patient denies headaches Cardiovascular: Patient denies chest pain Respiratory: Patient denies shortness of breath, cough GI: Patient denies abdominal pain, nausea, vomiting, diarrhea : Patient denies increased frequency or pain with urination Extremities: Patient reports pain and swelling in his lower extremities as above. Neurological: Patient denies numbness or tingling in legs Physical exam: Vitals: See below General: Alert and oriented male patient who was laying in bed when I walked in. Patient not appear to be in any acute distress. HEENT: Normocephalic, atraumatic, moist mucous membranes. Neck: No lymphadenopathy or thyromegaly Cardiac: Regular rate and rhythm, no murmurs, normal S1, normal S2 Pulm: Clear to auscultation bilaterally. No wheezes, rhonchi, rales Abd: Nondistended, nontender to palpation, normal bowel sounds Ext: Bilateral lower extremities show chronic venous stasis changes with the right leg being more pink having blisters scattered about but no purulent drainage. There is pedal edema on the feet bilaterally. Labs: See below Imaging: Ankle x-ray of the right ankle performed on 07/28/2021 was reported to show swelling. Age-related changes. No acute fracture or dislocation identified. Assessment/plan: 81-year-old male presented to hospital with worsening lower extremity wounds and inability to care for himself 1. Right lower extremity swelling possible cellulitis. Admitting team started patient on amoxicillin for possible cellulitis. Continue for 5 days. Patient also has very severe venous stasis changes. Instructed the patient to keep legs elevated. We will add Lac-Hydrin cream for the legs to help with the skin. 2. Peripheral artery disease status post bilateral balloon angioplasty. Patient has lower extremity ulcers. Continue aspirin Plavix. 3. Inability to care for himself. Patient is agreeable to go to the acute rehabilitation unit to get stronger in order to care for himself. Patient is able to be weightbearing after fibular fracture that was diagnosed during his last ARU stay at the beginning of his ARU stay via an MRI. 4. Right fibular fracture. This was seen on ankle MRI that was diagnosed by Dr. Sawant when the patient arrived to the acute rehab unit. Patient cannot be weightbearing per orthopedic surgery. 5. Fifth distal phalanx of the right foot fracture. Patient fell while in the acute rehab unit last time and fractured the fifth distal phalanx of the right foot. Continue pain control and physical therapy. 6. Congestive heart failure preserved ejection fraction. Echocardiogram performed 2 months ago showed EF of 60%. Does not appear to be in exacerbation at this time. 7. 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 Atenolol held. 8. CKD stage II. Avoid nephrotoxic agents continue to monitor. 9. Sleep apnea not using CPAP. Continue to monitor patient's oxygen saturations while he sleeps. DVT Prophylaxis: Heparin Disposition: Discharge to ARU tomorrow. VS,Mie, I+O VS, Mie, I+O Vital Signs Date Time Temp Pulse Resp B/P (MAP) Pulse Ox O2 Delivery O2 Flow Rate FiO2 07/28/21 06:39 120/75 07/28/21 06:36 97.9 73 18 92 Room Air I&O- Last 24 Hours up to 6 AM 07/28/21 06:00 Intake Total 640 ml Output Total 400 ml Balance 240 ml MAR MATIAS DO Jul 28, 2021 14:43
[2021-07-28] MEDS ORDERED: SENNA 8.6 MG TAB (SENOKOT) PO PRN (16:30)
[2021-07-28] MEDS: LATANOPROST 0.005% OPHTH SOLN 2.5 ML OU SCH (21:51)
[2021-07-28] MEDS: LACTIC ACID 12% LOTION 225 GM BTL TOP SCH (21:56)
[2021-07-28 22:31] VITALS: BP 130/59
[2021-07-29 06:00] VITALS: BP 150/62
[2021-07-29] MEDS: AMOXICILLIN 500 MG CAP PO SCH ×2 (06:08→14:48)
[2021-07-29] MEDS: HEPARIN SOD (PORCINE) 5000UNITS/ML 1ML VIAL/SYRINGE SC SCH ×2 (06:09→14:49)
[2021-07-29] MEDS: **hydrALAZINE HCL** 25 MG TAB PO SCH ×2 (06:09→14:48)
[2021-07-29] MEDS: SYMBICORT 160/4.5MCG INHALER 6GM INH SCH (07:39)
[2021-07-29] MEDS: ACETAMINOPHEN 650MG ER TAB (TYLENOL ARTHRITIS) PO SCH ×2 (09:06→14:48)
[2021-07-29] MEDS: DOCUSATE SODIUM 100MG CAPSULE PO SCH (09:06)
[2021-07-29] MEDS: NYSTATIN 100,000 UNITS/GM TOPICAL PWD 15 GM TOP SCH (09:06)
[2021-07-29] MEDS: LACTIC ACID 12% LOTION 225 GM BTL TOP SCH (09:06)
[2021-07-29] MEDS: TORSEMIDE 10 MG TABLET PO SCH (09:07)
[2021-07-29] MEDS: CLOPIDOGREL 75 MG TAB PO SCH (09:07)
[2021-07-29] MEDS: ASPIRIN 81MG ENTERIC TABLET PO SCH (09:07)
[2021-07-29] MEDS: PRAVASTATIN 20 MG TAB PO SCH (09:07)
[2021-07-29] MEDS: GABAPENTIN 400MG CAP PO SCH (09:07)
[2021-07-29] MEDS: PANTOPRAZOLE 40MG TAB (PROTONIX) PO SCH (09:07)
--- NOTE | 2021-07-29 13:21 | DS.PDOC ---
Discharge Summary General Date of Admission Jul 26, 2021 at 13:38 Date of Discharge 07/29/2021 Primary Care Physician: Harmeet Pike DO Attending Physician: MAR MATIAS DO Specialist/Consultants Involve: RAÚL HANSON MD Discharge Summary PROCEDURES PERFORMED DURING STAY: None. ADMITTING DIAGNOSES: 1. Right lower extremity swelling possible secondary to cellulitis. 2. Peripheral arterial disease status post balloon angioplasties with lower extremity ulcers 3. Chronic diastolic congestive heart failure 4. First-degree AV block/bradycardia 5. Nondisplaced fracture through the anterior aspect the right distal fibula 6. CKD stage II 7. NICOLAS not on CPAP 8. Social concerns in the setting of worsening debility 9. Class II obesity DISCHARGE DIAGNOSES: 1. Right lower extremity swelling possible secondary to cellulitis. 2. Peripheral arterial disease status post balloon angioplasties with lower extremity ulcers 3. Chronic diastolic congestive heart failure 4. First-degree AV block/bradycardia 5. Nondisplaced fracture through the anterior aspect the right distal fibula 6. CKD stage II 7. NICOLAS not on CPAP 8. Social concerns in the setting of worsening debility 9. Class II obesity COMPLICATIONS/CHIEF COMPLAINT: Right Leg Pain. HISTORY OF PRESENT ILLNESS: Patient is an 81-year-old male who presented to the hospital via EMS on with a chief complaint of increased bilateral lower extremity swelling and associated redness, particularly of the right lower extremity. Of note, patient was recently admitted from 06/07/2021 through 06/19/2021 for lower extremity cellulitis and sepsis. Patient was transferred to the acute rehab unit where he stayed from 06/19/2021 to 07/06/2021. Patient was discovered to have a right fibular fracture while he was at the acute rehab unit and was discharged to ARU with his modified independent from wheelchair level for mobility and activities of daily living. With past 2 days, has been considerable issues at home. Patient reports increased swelling of bilateral lower extremities over the past few days. This is more extensive in the right lower extremity and associated warmth. He is also been experiencing some dizzy spells but denies any falls and is now predominantly wheelchair-bound. He is struggling to adapt to living alone and his home is not physically formatted for the wheelchair. Patient has been receiving [facility] that have issues tending to his wounds and their concern for safety at home. He is also unable to keep an Aircast over his fracture. Per [facility] health aide, patient has been declining at home and he feels need he needs assisted living. Patient's daughter is also in agreement does not feel like the patient is safe at home. HOSPITAL COURSE: During the early part of the patient's hospitalization, the patient's wounds did improve with amoxicillin. Amoxicillin has been continued. We will continue to keep the patient's legs elevated as much as possible. The decision was made to get a second x-ray of the patient's ankle as well as have orthopedic surgery see the patient. Patient has been cleared for modified weightbearing with physical therapy. Patient is now a better candidate for ARU at this point now that they be able to work with more weightbearing as the patient's discharge plan last time was to be modified nonweightbearing in a wheelchair. Plan was to discharge to the acute rehab unit in order to give the patient therapy now that the patient is able to walk and bear weight on the right ankle in order to get a better discharge plan. Patient is alert and oriented and is in agreement with this plan. According to social work note, patient's daughter was in disagreement with this plan because of the last day in ARU however, I believe it is prudent to note that the patient was nonweightbearing throughout his last stay in the acute rehab unit will now be able to be more weightbearing with the ultimate goal of getting the patient home back to his weightbearing status. Patient is in agreement with the plan and patient was discharged to the acute rehab unit on 07/29/2021. DISCHARGE MEDICATIONS: Please see below. ALLERGIES: Please see below. PHYSICAL EXAMINATION ON DISCHARGE: VITAL SIGNS: Please see below. General: Alert and oriented male patient who was sitting in bed when I walked in. Patient had a senior piping designer present who the interview and physical exam was performed through. Patient did not appear to be in any acute distress. HEENT: Normocephalic, atraumatic, moist mucous membranes. Neck: No lymphadenopathy or thyromegaly Cardiac: Regular rate and rhythm, no murmurs, normal S1, normal S2 Pulm: Clear to auscultation bilaterally. No wheezes, rhonchi, rales Abd: Nondistended, nontender to palpation, normal bowel sounds Ext: Bilateral lower extremities show chronic venous stasis changes with the right leg being more pink having blisters scattered about but no purulent drainage. There is pedal edema on the feet bilaterally. The redness of the right leg has receded from the lines drawn on admission LABORATORY DATA: Please see below. IMAGING: Chest x-ray performed on 07/25/2021 was reported to show no acute pul monary disease. Duplex lower extremity ultrasound bilaterally performed on 07/25/2021 was reported to show no evidence of DVT of the bilateral lower extremity femoral- popliteal venous system. Ankle x-ray of the right ankle performed on 07/28/2021 was reported to show swelling. Age-related changes. No acute fracture or dislocation identified. PROGNOSIS: Fair ACTIVITY: As tolerated. DIET: No added salt diet DISCHARGE PLAN: Discharge to acute rehab unit DISPOSITION: . DISCHARGE INSTRUCTIONS: 1. Follow-up with Dr. Mendez and the rest of the ARU staff. ITEMS TO FOLLOWUP ON ON OUTPATIENT: 1. Following up on chronic leg edema and venous stasis changes. DISCHARGE CONDITION: Stable. TIME SPENT ON DISCHARGE: 35 minutes. Vital Signs/I&Os Vital Signs Date Time Temp Pulse Resp B/P (MAP) Pulse Ox O2 Delivery O2 Flow Rate FiO2 07/29/21 06:09 150/62 07/29/21 06:00 98.1 58 14 96 Room Air I&O- Last 24 Hours up to 6 AM 07/29/21 05:59 Intake Total 1610 ml Output Total 2050 ml Balance -440 ml Discharge Medications Scheduled Aspirin (Aspirin EC) 81 Mg Tablet.dr, 81 MG PO DAILY, (Reported) Atenolol (Atenolol) 25 Mg Tablet, 12.5 MG PO DAILY, (Reported) HOLD IF HR<60, HOLD IF BLODD PRESSURE IS LOW Clopidogrel Bisulfate (Plavix) 75 Mg Tablet, 75 MG PO DAILY, (Reported) Eyelid Cleanser Comb No.7 (Ocusoft Lid Scrub) 1 Each Kit, 1 DOSE TOP BID, (Reported) Fluticasone/Vilanterol (Breo Ellipta 100-25 Mcg INH) 1 Each Blst.w.dev, 1 PUFF INH DAILY, (Reported) Gabapentin (Gabapentin) 400 Mg Capsule, 400 MG PO TID, (Reported) Hydralazine HCl (Hydralazine HCl) 25 Mg Tablet, 25 MG PO TID, (Reported) 0600, 1400, 2200 Latanoprost (Xalatan) 0.005% 2.5ML Drops, 1 DROP OU QHS, (Reported) [place]-3 Fatty Acids/Fish Oil (Fish Oil 1,000 mg Capsule) 1 Each Capsule, 1,000 MG PO DAILY, (Reported) Pantoprazole Sodium (Pantoprazole Sodium) 40 Mg Tablet.dr, 40 MG PO DAILY, (Reported) Pravastatin Sodium (Pravastatin Sodium) 40 Mg Tablet, 40 MG PO DAILY, (Reported) Psyllium Husk (Reguloid) 0.4 Gm Capsule, 800 MG PO TID, (Reported) Torsemide (Torsemide) 10 Mg Tablet, 10 MG PO BID, (Reported) 0900, 1700 Scheduled PRN Albuterol Sulfate (Proair Hfa) 8.5 Gm Hfa.aer.ad, 2 PUFF INH QID PRN for SHORTNESS OF BREATH, (Reported) Baclofen (Baclofen) 10 Mg Tablet, 5 MG PO TID PRN for MUSCLE SPASMS, (Reported) Carboxymethyl/Glycerin/Poly80 (Refresh Optive Advanced Drops) 10 Ml Drops, 1 DROP OU QID PRN for DRY EYES, (Reported) Methyl Salicylate/Menthol (Bengay Greaseless Cream) 57 Gm Cream..g., 1 DOSE EXT TID PRN for MILD PAIN (PS 1-4), (Reported) Allergies Coded Allergies: No Known Allergies (Verified , 03/25/18) MAR MATIAS DO Jul 29, 2021 13:21
[2021-07-29 14:48] VITALS: BP 180/74
== END 2021-07-29 15:00 | DRG 603 ==
LOC: M ED 16:15 → M ED INP 16:16 → ENRESERV 07-26 11:36 → M MS5PR 07-26 13:34 → OBSVTOIN 07-26 13:38
PROVIDERS: ADMIT Internal Medicine; ATTEND Family Medicine
DX: L03.115 Cellulitis of right lower limb (principal); I50.32 Chronic diastolic (congestive) heart failure; I13.0 Hypertensive heart and chronic kidney disease with heart failure and stage 1 through stage 4 chronic kidney disease, or unspecified chronic kidney disease; I44.0 Atrioventricular block, first degree; G47.33 Obstructive sleep apnea (adult) (pediatric); E66.9 Obesity, unspecified; N18.2 Chronic kidney disease, stage 2 (mild); I70.25 Atherosclerosis of native arteries of other extremities with ulceration; Z79.82 Long term (current) use of aspirin; Z79.899 Other long term (current) drug therapy; Z87.891 Personal history of nicotine dependence; E78.5 Hyperlipidemia, unspecified; S82.831D Other fracture of upper and lower end of right fibula, subsequent encounter for closed fracture with routine healing; W18.30XD Fall on same level, unspecified, subsequent encounter; Y92.238 Other place in hospital as the place of occurrence of the external cause; Z85.820 Personal history of malignant melanoma of skin

== ENCOUNTER 2021-07-29 10:25 | Inpatient (IN) | payer MEDICARE, OTHER ==
[~2021-07-29] VITALS: Ht 160 cm; Wt 107.6 kg
[~2021-07-29 10:25] MED LIST changes: +BENG1CRE3 EXT; +PLAV1TAB2 PO; +PROAAER10 INH
[2021-07-29] MEDS ORDERED: ALBUTEROL 90 MCG/ACT 8GM HFA INHALER INH PRN (11:30)
[2021-07-29] MEDS ORDERED: MAALOX 30 ML SUSP *UDC PO PRN (11:30)
[2021-07-29 15:00] VITALS: BP 138/65
[2021-07-29] MEDS: POLYVINYL ALCOHOL OPHTH SOLN 15 ML(LIQUITEARS) OU SCH ×2 (16:00→21:49)
[2021-07-29] MEDS: REMEDY PHYTOPLEX Z-GUARD PASTE 113GM TUBE (FROM STOREROOM PRODUCT) TOP SCH ×2 (16:00→21:52)
[2021-07-29] MEDS: TORSEMIDE 10 MG TABLET PO SCH (17:27)
[2021-07-29] MEDS: GABAPENTIN 400MG CAP PO SCH ×2 (17:27→21:49)
[2021-07-29] MEDS: LACTOBACILLUS ACIDOPHILUS CAP (BACID) PO SCH ×2 (17:27→21:49)
[2021-07-29] MEDS: FLUTICASONE HFA 110 MCG 12 GM INHALER (FLOVENT) INH SCH (20:00)
[2021-07-29] MEDS: SYMBICORT 160/4.5MCG INHALER 6GM INH SCH (20:00)
[2021-07-29 21:00] VITALS: BP 168/62
[2021-07-29] MEDS: LATANOPROST 0.005% OPHTH SOLN 2.5 ML OU SCH (21:00)
[2021-07-29] MEDS: AMOXICILLIN 500 MG CAP PO SCH (21:48)
[2021-07-29] MEDS: SENNA 8.6 MG TAB (SENOKOT) PO SCH (21:48)
[2021-07-29] MEDS: DOCUSATE SODIUM 100MG CAPSULE PO SCH (21:49)
[2021-07-29] MEDS: ACETAMINOPHEN 500 MG TAB PO SCH (21:49)
[2021-07-29] MEDS: HEPARIN SOD (PORCINE) 5000UNITS/ML 1ML VIAL/SYRINGE SC SCH (21:49)
[2021-07-29] MEDS: **hydrALAZINE HCL** 25 MG TAB PO SCH (21:49)
[2021-07-29] MEDS: NYSTATIN 100,000 UNITS/GM TOPICAL PWD 15 GM TOP SCH (21:51)
[2021-07-29] MEDS: LACTIC ACID 12% LOTION 225 GM BTL TOP SCH (21:51)
[2021-07-30] MEDS: AMOXICILLIN 500 MG CAP PO SCH ×3 (06:42→21:00)
[2021-07-30] MEDS: **hydrALAZINE HCL** 25 MG TAB PO SCH ×3 (06:43→18:13)
[2021-07-30 06:45] VITALS: BP 171/79
[2021-07-30] MEDS: FLUTICASONE HFA 110 MCG 12 GM INHALER (FLOVENT) INH SCH ×2 (08:00→20:00)
[2021-07-30] MEDS: SYMBICORT 160/4.5MCG INHALER 6GM INH SCH ×2 (08:00→20:00)
[2021-07-30] MEDS ORDERED: FLUBLOK(EGG FREE)(QUAD)INFLUENZA VACC 0.5ML SYRINGE 18YRS & OLDER IM ONE (09:00)
[2021-07-30] MEDS: HEPARIN SOD (PORCINE) 5000UNITS/ML 1ML VIAL/SYRINGE SC SCH ×2 (09:05→21:01)
[2021-07-30] MEDS: BACLOFEN 5MG PER 1/2 TABLET PO PRN (09:06)
[2021-07-30] MEDS: DOCUSATE SODIUM 100MG CAPSULE PO SCH ×2 (09:06→21:00)
[2021-07-30] MEDS: CLOPIDOGREL 75 MG TAB PO SCH (09:06)
[2021-07-30] MEDS: PANTOPRAZOLE 40MG TAB (PROTONIX) PO SCH (09:06)
[2021-07-30] MEDS: LACTOBACILLUS ACIDOPHILUS CAP (BACID) PO SCH ×4 (09:06→21:00)
[2021-07-30] MEDS: PRAVASTATIN 20 MG TAB PO SCH (09:06)
[2021-07-30] MEDS: GABAPENTIN 400MG CAP PO SCH ×3 (09:06→21:00)
[2021-07-30] MEDS: ASPIRIN 81MG ENTERIC TABLET PO SCH (09:06)
[2021-07-30] MEDS: TORSEMIDE 10 MG TABLET PO SCH ×2 (09:07→18:13)
[2021-07-30] MEDS: ACETAMINOPHEN 500 MG TAB PO SCH ×3 (09:07→21:00)
[2021-07-30] MEDS: POLYVINYL ALCOHOL OPHTH SOLN 15 ML(LIQUITEARS) OU SCH ×3 (09:09→21:01)
[2021-07-30] MEDS: LACTIC ACID 12% LOTION 225 GM BTL TOP SCH ×2 (09:09→21:01)
[2021-07-30] MEDS: REMEDY PHYTOPLEX Z-GUARD PASTE 113GM TUBE (FROM STOREROOM PRODUCT) TOP SCH ×3 (09:10→21:02)
[2021-07-30] MEDS: NYSTATIN 100,000 UNITS/GM TOPICAL PWD 15 GM TOP SCH ×2 (09:10→21:02)
[2021-07-30 09:13] LABS: BASO % 0.8 % (0.0-1.0); EOS # 0.3 10^3/uL (0.0-0.5); EOS % 6.4 % (0.0-3.0); HEMATOCRIT 36.4 % (42.0-52.0); HEMOGLOBIN 11.6 g/dl (13.5-17.5); LYMPH # 1.1 10^3/uL (1.5-5.0); LYMPH % 22.9 % (24.0-44.0); MEAN CORPUSCULAR HEMOGLOBIN 29.7 pg (27.0-33.0); MEAN CORPUSCULAR HGB CONC 31.9 g/dl (32.0-36.5); MEAN CORPUSCULAR VOLUME 93.3 fl (80.0-96.0); MONO # 0.4 10^3/uL (0.0-0.8); MONO % 7.8 % (2.0-8.0); NEUTROPHILS # 3.1 10^3/uL (1.5-8.5); NEUTROPHILS % 61.5 % (36.0-66.0); PLATELET COUNT, AUTOMATED 281 10^3/uL (150-450)
[2021-07-30 09:40] LABS: ALT/SGPT 24 U/L (12-78); BILIRUBIN,TOTAL 0.3 MG/DL (0.2-1.0); BLOOD UREA NITROGEN 19 MG/DL (7-18); CALCIUM LEVEL 9.8 MG/DL (8.8-10.2); CARBON DIOXIDE LEVEL 33 MEQ/L (21-32); CHLORIDE LEVEL 107 MEQ/L (98-107); CREATININE FOR GFR 1.11 MG/DL (0.70-1.30); GLOMERULAR FILTRATION RATE > 60.0 (>35); GLUCOSE, FASTING 160 MG/DL (70-100); POTASSIUM SERUM 4.1 MEQ/L (3.5-5.1); SODIUM LEVEL 143 MEQ/L (136-145); TOTAL PROTEIN 7.2 GM/DL (6.4-8.2)
--- NOTE | 2021-07-30 11:18 | HPEPDOC ---
Territory Sales Executive Note DATE OF ADMISSION: 07-29-21 DATE OF SERVICE: 07-30-21 TIME OF ADMISSION: Please refer to physician's admission order. SOURCE OF ADMISSION INFORMATION: [facility] record and patient CHIEF COMPLAINT: weakness in setting of PAD and recent right ankle fracture HISTORY OF PRESENT ILLNESS: 81M pmh HTN, NICOLAS, DM2, restrictive lung disease, HLD, CKD, former smoker, PAD s/p LE extremity balloon angioplasties, bilat LE ulcers with peripheral polyneuropathy recently treated on ARU from 06-19-21 until 07-06-21 where he was diagnosed on admission with a right fibular fracture, his wounds were treated and he required renal oversight for his worsening kidney function, he remained NWB and was sent home at a wheelchair level but he returned to [facility] on 07-25-21 with worsening LE swelling and diagnosed with cellulitis. He also was noted to have difficulty managing his self-care in a wheelchair at home. Orthopedics recommended follow-up ankle Xray which did not show a fracture, so presumably his fracture was healing and he was allowed to be WBAT to the E. He had el evated blood pressures, wounds on his legs requiring antibiotics and ongoing wound care, with mobility and ADLs impairments, deemed medically appropriate for discharge to ARU on 07-29-21 with a goal to make patient Independent to return home with a walker. REVIEW OF SYSTEMS: The following is a completed review of systems and has been reviewed. Review of systems otherwise unremarkable. PAIN: Patient self reports low back pain EYES: No recent vision changes EARS, NOSE, & THROAT: +deaf CARDIOVASCULAR: Denies chest pain or palpitations PULMONARY: Denies shortness of breath GASTROINTESTINAL: Denies constipation/diarrhea GENITOURINARY: no dysuria MUSCULOSKELETAL:+generalized weakness NEUROLOGICAL: + paresthesias HEMATOLOGICAL: denies easy bruising SKIN: LE wounds PSYCHIATRIC: Unremarkable All other review of systems found to be negative. PAST MEDICAL HISTORY: as per HPI PAST SURGICAL HISTORY: Knee surgery, shoulder arthroplasty, skin excision ALLERGIES: Please see below. MEDICATIONS: Please see below. SOCIAL HISTORY: former smoker, no etoh/illicit drugs DIET: low sodium PHYSICAL EXAMINATION: VITAL SIGNS: Please see below. GENERAL: Pleasant and cooperative. No acute distress. HEENT: PERRL. Extraocular movements intact. Clear conjunctiva CARDIOVASCULAR: Regular rate and rhythm. No murmurs, rubs, or gallops LUNGS: Clear to auscultation bilaterally. No wheezes. No rhonchi ABDOMEN: Soft, nontender, nondistended. Positive bowel sounds. Normal active bowel sounds NEUROLOGICAL: Cranial nerves II through XII grossly intact. Sensation decreased to light touch in stocking pattern with decreased proprioception able to follow commands and answer questions with senior data architect EXTREMITIES: 5\5 strength bilateral upper extremities. 5\5 strength right lower extremity. 5/5 strength in left lower extremity. SKIN: bilat LE venous stasis changes, left foot with dried ulcer, some moisture between toes LABORATORY DATA: Please see below. IMAGING:Imaging documentation personally reviewed by record FUNCTIONAL STATUS: Premorbid: Independent with all activities of daily life as well as mobility from wheelchair level (temporary due to ankle fracture) On Admission: Min-Mod assist for bed mobility, functional transfers, ambulation, dressing, toileting GOALS: Mod-I for bed mobility, functional transfers, ambulation, dressing, toileting, bathing ASSESSMENT:81-year-old M with past medical history of PAD, CHF who presents status post weakness in setting of sepsis due to LE cellulitis PLAN: 1. Rehab- PT/OT- advance mobility and ADLs, strengthen/stretch/maintain ROM all 4 limbs- emphasize and teach fall recovery, wound care/foot care management prior to d/c home 2. Ortho- right anterior fibular fracture recently NWB while on previous ARU stay, now cleared for WBAT per ortho -patient with right 5th toe proximal phalanx fracture from possibly from fall to floor 2 days prior to dc on last ARU stay- non-operative -LSO for spine support- incorporate spine therapy program into ARU stay if possible --f/u ortho on d/c 2. Cardiac- diastolic CHF cont, fluid restrict, daily weights, torsemide -HTN cont BP meds -PAD- cont ASA and Plavix -HLD- statin -medicine consulted to assist in management 3. Resp- monitor for infection, former smoker with restrictive lung disease- cont fluticasone and symbicort 4. GI ppx- protonix 5. DVT ppx- heparin 6. ID- cont amoxicillin for LE cellulitis, monitor 7. Pain- tylneol 8. Skin- LE wounds please see dressing changes 9. Renal- CKD, monitor for CHERI and consult renal if needed 9. Dispo- TBD POST ADMISSION PHYSICIAN EVALUATION: Medical and functional status: Description of medical status, medical assessment: As above. Rehabilitation diagnosis and current and prior cold morbid medical conditions as above. Risk of complications and plans to mitigate them as above. Description of functional status current status is as above. Prior status as above. Status compared to preadmission: There are no clinically significant differences between the patient's current status and the information described on the preadmission screening document. Treatment plan anticipated: Treatment plan is as described above. Required disciplines including physical therapy, occupational therapy, others as noted above. Intensity of services: 3 hours a day, 6 days a week. Special considerations: There are no specific special or safety considerations that would likely preclude immediate implementation of an intensive rehabilitation program or subsequently influence the plan of care. ATTESTATION: Considering all the information above, it is my best judgment that this patient requires intensive rehabilitation therapy as described above and an inpatient hospital environment due to the complexity of nursing, medical, and rehabilitation needs required by the patient. Furthermore, this patient can reasonably be expected to participate in an benefit from an inpatient rehabilitation stay with an interdisciplinary team approach to the delivery of rehabilitation care under the direction and supervision of rehabilitation physician. PROGNOSIS: Good ESTIMATED LENGTH OF STAY: 10-14 days. PROJECTED DISCHARGE DESTINATION: Home with family support and any durable medical equipment required to increase functional safety and mobility TIME SPENT COUNSELING AND COORDINATING INITIAL CARE: Greater than 70 minutes. Vital Signs Vital Sign - Last 24 Hours 07/29/21 07/29/21 07/29/21 07/30/21 15:00 21:00 21:49 06:43 Temp 96.9 96.9 Pulse 66 53 Resp 20 18 B/P (MAP) 138/65 (89) 168/62 (97) 168/62 171/79 Pulse Ox 95 96 O2 Delivery Room Air 07/30/21 06:45 Temp 97.1 Pulse 62 Resp 18 B/P (MAP) 171/79 (109) Pulse Ox 95 Laboratory Data CBC/BMP Laboratory Tests 07/30/21 09:01 Labs 24H Laboratory Tests 2 07/30/21 09:01: Immature Granulocyte % (Auto) 0.6, Neutrophils (%) (Auto) 61.5, Lymphocytes (%) (Auto) 22.9L, Monocytes (%) (Auto) 7.8, Eosinophils (%) (Auto) 6.4H, Basophils (%) (Auto) 0.8, Neutrophils # (Auto) 3.1, Lymphocytes # (Auto) 1.1L, Monocytes # (Auto) 0.4, Eosinophils # (Auto) 0.3, Basophils # (Auto) 0.0, Nucleated Red Blood Cells % (auto) 0.0, Anion Gap 3L, Glomerular Filtration Rate > 60.0, Calcium Level 9.8, Total Bilirubin 0.3, Aspartate Amino Transf (AST/SGOT) 25, Alanine Aminotransferase (ALT/SGPT) 24, Alkaline Phosphatase 98, Total Protein 7.2, Albumin 3.0L, Albumin/Globulin Ratio 0.7 Home Medications Scheduled Aspirin (Aspirin EC) 81 Mg Tablet.dr, 81 MG PO DAILY, (Reported) Atenolol (Atenolol) 25 Mg Tablet, 12.5 MG PO DAILY, (Reported) HOLD IF HR<60, HOLD IF BLODD PRESSURE IS LOW Clopidogrel Bisulfate (Plavix) 75 Mg Tablet, 75 MG PO DAILY, (Reported) Eyelid Cleanser Comb No.7 (Ocusoft Lid Scrub) 1 Each Kit, 1 DOSE TOP BID, (Reported) Fluticasone/Vilanterol (Breo Ellipta 100-25 Mcg INH) 1 Each Blst.w.dev, 1 PUFF INH DAILY, (Reported) Gabapentin (Gabapentin) 400 Mg Capsule, 400 MG PO TID, (Reported) Hydralazine HCl (Hydralazine HCl) 25 Mg Tablet, 25 MG PO TID, (Reported) 0600, 1400, 2200 Latanoprost (Xalatan) 0.005% 2.5ML Drops, 1 DROP OU QHS, (Reported) Stetson-3 Fatty Acids/Fish Oil (Fish Oil 1,000 mg Capsule) 1 Each Capsule, 1,000 MG PO DAILY, (Reported) Pantoprazole Sodium (Pantoprazole Sodium) 40 Mg Tablet.dr, 40 MG PO DAILY, (Reported) Pravastatin Sodium (Pravastatin Sodium) 40 Mg Tablet, 40 MG PO DAILY, (Reported) Psyllium Husk (Reguloid) 0.4 Gm Capsule, 800 MG PO TID, (Reported) Torsemide (Torsemide) 10 Mg Tablet, 10 MG PO BID, (Reported) 0900, 1700 Scheduled PRN Albuterol Sulfate (Proair Hfa) 8.5 Gm Hfa.aer.ad, 2 PUFF INH QID PRN for SHORTNESS OF BREATH, (Reported) Baclofen (Baclofen) 10 Mg Tablet, 5 MG PO TID PRN for MUSCLE SPASMS, (Reported) Carboxymethyl/Glycerin/Poly80 (Refresh Optive Advanced Drops) 10 Ml Drops, 1 DROP OU QID PRN for DRY EYES, (Reported) Methyl Salicylate/Menthol (Bengay Greaseless Cream) 57 Gm Cream..g., 1 DOSE EXT TID PRN for MILD PAIN (PS 1-4), (Reported) Allergies Coded Allergies: No Known Allergies (Verified , 03/25/18) A-FIB/CHADSVASC A-FIB History Current/History of A-Fib/PAF?: No Current PO Anticoag Therapy: No AMADOR LANDIN MD Jul 30, 2021 11:18
[2021-07-30] MEDS: traMADol 50 MG TAB PO PRN (12:14)
[2021-07-30 14:00] VITALS: BP 134/60
[2021-07-30 20:00] VITALS: BP 128/58
[2021-07-30] MEDS: SENNA 8.6 MG TAB (SENOKOT) PO SCH (21:00)
[2021-07-30] MEDS: LATANOPROST 0.005% OPHTH SOLN 2.5 ML OU SCH (21:01)
[2021-07-31] MEDS: **hydrALAZINE HCL** 25 MG TAB PO SCH ×4 (00:51→18:30)
[2021-07-31 06:00] VITALS: BP 123/57
[2021-07-31] MEDS: AMOXICILLIN 500 MG CAP PO SCH ×3 (06:25→21:05)
[2021-07-31] MEDS: FLUTICASONE HFA 110 MCG 12 GM INHALER (FLOVENT) INH SCH ×2 (08:00→20:00)
[2021-07-31] MEDS: SYMBICORT 160/4.5MCG INHALER 6GM INH SCH ×2 (08:00→20:00)
[2021-07-31] MEDS: LACTIC ACID 12% LOTION 225 GM BTL TOP SCH ×2 (09:00→21:07)
[2021-07-31] MEDS: REMEDY PHYTOPLEX Z-GUARD PASTE 113GM TUBE (FROM STOREROOM PRODUCT) TOP SCH ×3 (09:00→21:07)
[2021-07-31] MEDS: NYSTATIN 100,000 UNITS/GM TOPICAL PWD 15 GM TOP SCH ×2 (09:00→21:07)
[2021-07-31] MEDS: POLYVINYL ALCOHOL OPHTH SOLN 15 ML(LIQUITEARS) OU SCH ×3 (09:00→21:06)
[2021-07-31] MEDS: DOCUSATE SODIUM 100MG CAPSULE PO SCH ×2 (09:38→21:05)
[2021-07-31] MEDS: PANTOPRAZOLE 40MG TAB (PROTONIX) PO SCH (09:38)
[2021-07-31] MEDS: GABAPENTIN 400MG CAP PO SCH ×3 (09:38→21:05)
[2021-07-31] MEDS: CLOPIDOGREL 75 MG TAB PO SCH (09:38)
[2021-07-31] MEDS: PRAVASTATIN 20 MG TAB PO SCH (09:38)
[2021-07-31] MEDS: BACLOFEN 5MG PER 1/2 TABLET PO PRN (09:38)
[2021-07-31] MEDS: TORSEMIDE 10 MG TABLET PO SCH ×2 (09:39→17:04)
[2021-07-31] MEDS: ASPIRIN 81MG ENTERIC TABLET PO SCH (09:39)
[2021-07-31] MEDS: LACTOBACILLUS ACIDOPHILUS CAP (BACID) PO SCH ×4 (09:39→21:05)
[2021-07-31] MEDS: HEPARIN SOD (PORCINE) 5000UNITS/ML 1ML VIAL/SYRINGE SC SCH ×2 (09:40→21:05)
[2021-07-31] MEDS: ACETAMINOPHEN 500 MG TAB PO SCH ×3 (09:40→21:06)
[2021-07-31 14:00] VITALS: BP 134/63
--- NOTE | 2021-07-31 15:33 | IPNPDOC ---
PM&R Progress Note DATE OF SERVICE: Jul 31, 2021 Flight Engineer Instructor Progress Note Subjective: Patient seen in his room and instructed to don the LSO brace after which he reported his back pain felt better. REVIEW OF SYSTEMS: The following is a completed review of systems and has been reviewed. Review of systems otherwise unremarkable. PAIN: Patient self reports low back pain EYES: No recent vision changes EARS, NOSE, & THROAT: +deaf CARDIOVASCULAR: Denies chest pain or palpitations PULMONARY: Denies shortness of breath GASTROINTESTINAL: Denies constipation/diarrhea GENITOURINARY: no dysuria MUSCULOSKELETAL:+generalized weakness NEUROLOGICAL: + paresthesias HEMATOLOGICAL: denies easy bruising SKIN: LE wounds PSYCHIATRIC: Unremarkable All other review of systems found to be negative. PHYSICAL EXAMINATION: VITAL SIGNS: Please see below. GENERAL: Pleasant and cooperative. No acute distress. HEENT: PERRL. Extraocular movements intact. Clear conjunctiva CARDIOVASCULAR: Regular rate and rhythm. No murmurs, rubs, or gallops LUNGS: Clear to auscultation bilaterally. No wheezes. No rhonchi ABDOMEN: Soft, nontender, nondistended. Positive bowel sounds. Normal active bowel sounds NEUROLOGICAL: Cranial nerves II through XII grossly intact. Sensation decreased to light touch in stocking pattern with decreased proprioception able to follow commands and answer questions with roving carrier EXTREMITIES: 5\5 strength bilateral upper extremities. 5\5 strength right lower extremity. 5/5 strength in left lower extremity. SKIN: bilat LE venous stasis changes, left foot with dried ulcer, some moisture between toes ASSESSMENT:81-year-old M with past medical history of PAD, CHF who presents status post weakness in setting of sepsis due to LE cellulitis PLAN: 1. Rehab- PT/OT- advance mobility and ADLs, strengthen/stretch/maintain ROM all 4 limbs- emphasize and teach fall recovery, wound care/foot care management prior to d/c home 2. Ortho- right anterior fibular fracture recently NWB while on previous ARU stay, now cleared for WBAT per ortho -patient with right 5th toe proximal phalanx fracture from possibly from fall to floor 2 days prior to dc on last ARU stay- non-operative -LSO for spine support- incorporate spine therapy program into ARU stay if possible --f/u ortho on d/c 2. Cardiac- diastolic CHF cont, fluid restrict, daily weights, torsemide -HTN cont BP meds -PAD- cont ASA and Plavix -HLD- statin -medicine consulted to assist in management 3. Resp- monitor for infection, former smoker with restrictive lung disease- cont fluticasone and symbicort 4. GI ppx- protonix 5. DVT ppx- heparin 6. ID- cont amoxicillin for LE cellulitis, monitor 7. Pain- tylneol, baclofen for back spasms, bengay to back 8. Skin- LE wounds please see dressing changes 9. Renal- CKD, monitor for CHERI and consult renal if needed 9. [id number] to home, progressing towards goals Allergies Coded Allergies: No Known Allergies (Verified , 03/25/18) Vital Signs Vital Signs Date Time Temp Pulse Resp B/P (MAP) Pulse Ox O2 Delivery O2 Flow Rate FiO2 07/31/21 14:00 97.4 75 18 134/63 (86) 94 Room Air Current Medications Current Medications Current Medications Medications (Trade) Dose Ordered Sig/Geovany Route PRN Reason Start Time Stop Time Status Last Admin Dose Admin Acetaminophen (Tylenol Tab) 1,000 mg TID PO 07/29/21 21:00 07/31/21 09:40 Al Hydrox/Mg Hydrox/Simethicone (Mylanta) 30 ml Q4HP PRN PO DYSPEPSIA 07/29/21 11:30 Albuterol Sulfate (Proventil, Ventolin Hfa) 2 puff Q4HP PRN INH SHORTNESS OF BREATH 07/29/21 11:30 07/30/21 14:30 Amoxicillin (Amoxicillin) 500 mg Q8H PO 07/29/21 22:00 08/02/21 14:01 07/31/21 13:56 Artificial Tears (Akwa Tears) 2 drop TID OU 07/29/21 16:00 07/31/21 09:00 Aspirin (Ecotrin) 81 mg DAILY PO 07/30/21 09:00 07/31/21 09:39 Baclofen (Lioresal) 5 mg TID PRN PO spasm 07/29/21 11:30 07/31/21 09:38 Budesonide/ Formoterol Fumarate (Symbicort 160/ 4.5mcg) 2 puff RBID INH 07/29/21 20:00 Clopidogrel Bisulfate (PLAVix) 75 mg DAILY PO 07/30/21 09:00 07/31/21 09:38 Docusate Sodium (Colace) 100 mg BID PO 07/29/21 21:00 07/31/21 09:38 Fluticasone Propionate (Flovent Hfa 110 Mcg) 2 puff RBID INH 07/29/21 20:00 Gabapentin (Neurontin) 400 mg TID PO 07/29/21 16:00 07/31/21 09:38 Heparin Sodium (Porcine) (Heparin) 5,000 units Q12H SC 07/29/21 21:00 07/31/21 09:40 Hydralazine HCl (Apresoline) 25 mg Q8H PO 07/29/21 22:00 07/30/21 12:32 DC 07/30/21 06:43 Hydralazine HCl (Apresoline) 50 mg Q6H PO 07/30/21 12:00 07/31/21 12:59 Lactic Acid (Lac-Hydrin 12% Lotion) 1 dose BID TOP 07/29/21 21:00 07/31/21 09:00 Lactobacillus Acidophilus (Bacid) 1 ea WMHS PO 07/29/21 18:00 07/31/21 12:59 Latanoprost (Xalatan 0.005% Op Soln) 1 drop QHS OU 07/29/21 21:00 07/30/21 21:01 Menthol/Methyl Salicylate (Bengay Cream) apply to back TID TOP 07/31/21 16:00 Nystatin (Mycostatin Powder, Nystop) 1 dose BID TOP 07/29/21 21:00 07/31/21 09:00 Pantoprazole Sodium (Protonix) 40 mg DAILY PO 07/30/21 09:00 07/31/21 09:38 Pravastatin Sodium (Pravachol) 40 mg DAILY PO 07/30/21 09:00 07/31/21 09:38 Senna (Senokot) 1 tab QHS PO 07/29/21 21:00 07/30/21 21:00 Torsemide (Demadex) 10 mg BID@, PO 07/29/21 17:00 07/31/21 09:39 Tramadol HCl (Ultram) 50 mg Q4HP PRN PO MODERATE PAIN (PS 5-7) 07/29/21 11:30 07/30/21 12:14 AMADOR LANDIN MD Jul 31, 2021 15:33
[2021-07-31] MEDS: BACLOFEN 5MG PER 1/2 TABLET PO SCH ×2 (17:04→21:05)
[2021-07-31] MEDS: ANALGESIC BALM CRM 3OZ TOP SCH ×2 (17:07→21:06)
[2021-07-31 20:00] VITALS: BP 136/62
[2021-07-31] MEDS: LATANOPROST 0.005% OPHTH SOLN 2.5 ML OU SCH (21:05)
[2021-07-31] MEDS: SENNA 8.6 MG TAB (SENOKOT) PO SCH (21:05)
[2021-08-01] MEDS: **hydrALAZINE HCL** 25 MG TAB PO SCH ×4 (00:31→17:24)
[2021-08-01] MEDS: AMOXICILLIN 500 MG CAP PO SCH ×3 (05:49→22:14)
[2021-08-01 06:00] VITALS: BP 135/74
[2021-08-01 06:16] LABS: BASO # 0.1 10^3/uL (0.0-0.2); BASO % 1.2 % (0.0-1.0); EOS # 0.4 10^3/uL (0.0-0.5); EOS % 6.5 % (0.0-3.0); HEMATOCRIT 33.9 % (42.0-52.0); HEMOGLOBIN 10.9 g/dl (13.5-17.5); LYMPH # 1.4 10^3/uL (1.5-5.0); LYMPH % 24.5 % (24.0-44.0); MEAN CORPUSCULAR HEMOGLOBIN 29.9 pg (27.0-33.0); MEAN CORPUSCULAR HGB CONC 32.2 g/dl (32.0-36.5); MEAN CORPUSCULAR VOLUME 93.1 fl (80.0-96.0); MONO # 0.6 10^3/uL (0.0-0.8); MONO % 10.2 % (2.0-8.0); NEUTROPHILS # 3.2 10^3/uL (1.5-8.5); NEUTROPHILS % 57.1 % (36.0-66.0); PLATELET COUNT, AUTOMATED 237 10^3/uL (150-450); RED BLOOD COUNT 3.64 10^6/uL (4.30-6.10); WHITE BLOOD COUNT 5.7 10^3/uL (4.0-10.0)
[2021-08-01 06:37] LABS: BLOOD UREA NITROGEN 22 MG/DL (7-18); GLUCOSE, FASTING 101 MG/DL (70-100)
[2021-08-01 06:38] LABS: CALCIUM LEVEL 9.3 MG/DL (8.8-10.2); CARBON DIOXIDE LEVEL 32 MEQ/L (21-32); CHLORIDE LEVEL 104 MEQ/L (98-107); CREATININE FOR GFR 1.15 MG/DL (0.70-1.30); GLOMERULAR FILTRATION RATE > 60.0 (>35); POTASSIUM SERUM 3.9 MEQ/L (3.5-5.1); SODIUM LEVEL 142 MEQ/L (136-145)
[2021-08-01] MEDS: SYMBICORT 160/4.5MCG INHALER 6GM INH SCH ×2 (07:38→21:13)
[2021-08-01] MEDS: FLUTICASONE HFA 110 MCG 12 GM INHALER (FLOVENT) INH SCH ×2 (07:38→21:13)
[2021-08-01] MEDS: ASPIRIN 81MG ENTERIC TABLET PO SCH (08:27)
[2021-08-01] MEDS: PRAVASTATIN 20 MG TAB PO SCH (08:28)
[2021-08-01] MEDS: CLOPIDOGREL 75 MG TAB PO SCH (08:28)
[2021-08-01] MEDS: DOCUSATE SODIUM 100MG CAPSULE PO SCH ×2 (08:28→22:10)
[2021-08-01] MEDS: LACTOBACILLUS ACIDOPHILUS CAP (BACID) PO SCH ×4 (08:28→22:10)
[2021-08-01] MEDS: PANTOPRAZOLE 40MG TAB (PROTONIX) PO SCH (08:28)
[2021-08-01] MEDS: BACLOFEN 5MG PER 1/2 TABLET PO SCH ×3 (08:28→22:11)
[2021-08-01] MEDS: ACETAMINOPHEN 500 MG TAB PO SCH ×3 (08:28→22:11)
[2021-08-01] MEDS: GABAPENTIN 400MG CAP PO SCH ×2 (08:28→15:01)
[2021-08-01] MEDS: TORSEMIDE 10 MG TABLET PO SCH ×2 (08:28→17:24)
[2021-08-01] MEDS: HEPARIN SOD (PORCINE) 5000UNITS/ML 1ML VIAL/SYRINGE SC SCH ×2 (08:29→22:12)
[2021-08-01] MEDS: POLYVINYL ALCOHOL OPHTH SOLN 15 ML(LIQUITEARS) OU SCH ×3 (08:29→22:12)
[2021-08-01] MEDS: REMEDY PHYTOPLEX Z-GUARD PASTE 113GM TUBE (FROM STOREROOM PRODUCT) TOP SCH ×3 (08:30→22:13)
[2021-08-01] MEDS: NYSTATIN 100,000 UNITS/GM TOPICAL PWD 15 GM TOP SCH ×2 (08:30→22:13)
[2021-08-01] MEDS: ANALGESIC BALM CRM 3OZ TOP SCH ×3 (08:30→22:20)
[2021-08-01] MEDS: LACTIC ACID 12% LOTION 225 GM BTL TOP SCH ×2 (08:30→22:12)
--- NOTE | 2021-08-01 11:07 | IPNPDOC ---
PM&R Progress Note DATE OF SERVICE: Aug 01, 2021 Industrial Property Appraiser Progress Note Subjective: Patient reporting his feet feel sore after having walked a lot in therapy. He is interested in trying epsom salt baths to relax his muscles and to go up on his gabapentin dosing. REVIEW OF SYSTEMS: The following is a completed review of systems and has been reviewed. Review of systems otherwise unremarkable. PAIN: Patient self reports low back pain EYES: No recent vision changes EARS, NOSE, & THROAT: +deaf CARDIOVASCULAR: Denies chest pain or palpitations PULMONARY: Denies shortness of breath GASTROINTESTINAL: Denies constipation/diarrhea GENITOURINARY: no dysuria MUSCULOSKELETAL:+generalized weakness NEUROLOGICAL: + paresthesias HEMATOLOGICAL: denies easy bruising SKIN: LE wounds PSYCHIATRIC: Unremarkable All other review of systems found to be negative. PHYSICAL EXAMINATION: VITAL SIGNS: Please see below. GENERAL: Pleasant and cooperative. No acute distress. HEENT: PERRL. Extraocular movements intact. Clear conjunctiva CARDIOVASCULAR: Regular rate and rhythm. No murmurs, rubs, or gallops LUNGS: Clear to auscultation bilaterally. No wheezes. No rhonchi ABDOMEN: Soft, nontender, nondistended. Positive bowel sounds. Normal active bowel sounds NEUROLOGICAL: Cranial nerves II through XII grossly intact. Sensation decreased to light touch in stocking pattern with decreased proprioception able to follow commands and answer questions with water purifier EXTREMITIES: 5\5 strength bilateral upper extremities. 5\5 strength right lower extremity. 5/5 strength in left lower extremity. SKIN: bilat LE venous stasis changes, left foot with dried ulcer (healed), no moisture between toes ASSESSMENT:81-year-old M with past medical history of PAD, CHF who presents status post weakness in setting of sepsis due to LE cellulitis PLAN: 1. Rehab- PT/OT- advance mobility and ADLs, strengthen/stretch/maintain ROM all 4 limbs- emphasize and teach fall recovery, wound care/foot care management prior to d/c home 2. Neuro- patient with significant peripheral polyneuropathy in his LE secondary to PVD and contributing to overall mobility impairment 3. Ortho- right anterior fibular fracture recently NWB while on previous ARU stay, now cleared for WBAT per ortho -patient with right 5th toe proximal phalanx fracture from possibly from fall to floor 2 days prior to dc on last ARU stay- non-operative -LSO for spine support- incorporate spine therapy program into ARU stay if possible --f/u ortho on d/c 4. Cardiac- diastolic CHF cont, fluid restrict, daily weights, torsemide -HTN cont BP meds -PAD- cont ASA and Plavix -HLD- statin -medicine consulted to assist in management 5. Resp- monitor for infection, former smoker with restrictive lung disease- cont fluticasone and symbicort 6. GI ppx- protonix 7. DVT ppx- heparin 6. ID- cont amoxicillin for LE cellulitis, monitor 8. Pain- tylneol, baclofen for back spasms, bengay to back will increase gabapentin dosing for neuropathy 9. Skin- LE wounds please see dressing changes 10. Renal- CKD, monitor for CHERI and consult renal if needed 11. [id number] to home, progressing towards goals Allergies Coded Allergies: No Known Allergies (Verified , 03/25/18) Vital Signs Vital Signs Date Time Temp Pulse Resp B/P (MAP) Pulse Ox O2 Delivery O2 Flow Rate FiO2 08/01/21 06:00 97.3 66 17 135/74 (94) 92 Room Air Laboratory Data CBC/BMP Laboratory Tests 08/01/21 05:59 Labs 24H Laboratory Tests 2 08/01/21 05:59: Immature Granulocyte % (Auto) 0.5, Neutrophils (%) (Auto) 57.1, Lymphocytes (%) (Auto) 24.5, Monocytes (%) (Auto) 10.2H, Eosinophils (%) (Auto) 6.5H, Basophils (%) (Auto) 1.2H, Neutrophils # (Auto) 3.2, Lymphocytes # (Auto) 1.4L, Monocytes # (Auto) 0.6, Eosinophils # (Auto) 0.4, Basophils # (Auto) 0.1, Nucleated Red Blood Cells % (auto) 0.0, Anion Gap 6L, Glomerular Filtration Rate > 60.0, Calcium Level 9.3 Current Medications Current Medications Current Medications Medications (Trade) Dose Ordered Sig/Geovany Route PRN Reason Start Time Stop Time Status Last Admin Dose Admin Acetaminophen (Tylenol Tab) 1,000 mg TID PO 07/29/21 21:00 08/01/21 08:28 Al Hydrox/Mg Hydrox/Simethicone (Mylanta) 30 ml Q4HP PRN PO DYSPEPSIA 07/29/21 11:30 Albuterol Sulfate (Proventil, Ventolin Hfa) 2 puff Q4HP PRN INH SHORTNESS OF BREATH 07/29/21 11:30 07/30/21 14:30 Amoxicillin (Amoxicillin) 500 mg Q8H PO 07/29/21 22:00 08/02/21 14:01 08/01/21 05:49 Artificial Tears (Akwa Tears) 2 drop TID OU 07/29/21 16:00 08/01/21 08:29 Aspirin (Ecotrin) 81 mg DAILY PO 07/30/21 09:00 08/01/21 08:27 Baclofen (Lioresal) 5 mg TID PO 07/31/21 16:00 08/01/21 08:28 Baclofen (Lioresal) 5 mg TID PRN PO spasm 07/29/21 11:30 07/31/21 15:32 DC 07/31/21 09:38 Budesonide/ Formoterol Fumarate (Symbicort 160/ 4.5mcg) 2 puff RBID INH 07/29/21 20:00 08/01/21 07:38 Clopidogrel Bisulfate (PLAVix) 75 mg DAILY PO 07/30/21 09:00 08/01/21 08:28 Docusate Sodium (Colace) 100 mg BID PO 07/29/21 21:00 08/01/21 08:28 Fluticasone Propionate (Flovent Hfa 110 Mcg) 2 puff RBID INH 07/29/21 20:00 Gabapentin (Neurontin) 400 mg TID PO 07/29/21 16:00 08/01/21 08:28 Heparin Sodium (Porcine) (Heparin) 5,000 units Q12H SC 07/29/21 21:00 08/01/21 08:29 Hydralazine HCl (Apresoline) 25 mg Q8H PO 07/29/21 22:00 07/30/21 12:32 DC 07/30/21 06:43 Hydralazine HCl (Apresoline) 50 mg Q6H PO 07/30/21 12:00 08/01/21 05:49 Lactic Acid (Lac-Hydrin 12% Lotion) 1 dose BID TOP 07/29/21 21:00 08/01/21 08:30 Lactobacillus Acidophilus (Bacid) 1 ea WMHS PO 07/29/21 18:00 08/01/21 08:28 Latanoprost (Xalatan 0.005% Op Soln) 1 drop QHS OU 07/29/21 21:00 07/31/21 21:05 Menthol/Methyl Salicylate (Bengay Cream) apply to back TID TOP 07/31/21 16:00 08/01/21 08:30 Nystatin (Mycostatin Powder, Nystop) 1 dose BID TOP 07/29/21 21:00 08/01/21 08:30 Pantoprazole Sodium (Protonix) 40 mg DAILY PO 07/30/21 09:00 08/01/21 08:28 Pravastatin Sodium (Pravachol) 40 mg DAILY PO 07/30/21 09:00 08/01/21 08:28 Senna (Senokot) 1 tab QHS PO 07/29/21 21:00 07/31/21 21:05 Torsemide (Demadex) 10 mg BID@,17 PO 07/29/21 17:00 08/01/21 08:28 Tramadol HCl (Ultram) 50 mg Q4HP PRN PO MODERATE PAIN (PS 5-7) 07/29/21 11:30 07/30/21 12:14 AMADOR LANDIN MD Aug 01, 2021 11:07
[2021-08-01 13:38] VITALS: BP 145/65
[2021-08-01] MEDS: GABAPENTIN 300 MG CAP PO SCH (22:10)
[2021-08-01] MEDS: SENNA 8.6 MG TAB (SENOKOT) PO SCH (22:11)
[2021-08-01] MEDS: LATANOPROST 0.005% OPHTH SOLN 2.5 ML OU SCH (22:12)
[2021-08-02] MEDS: **hydrALAZINE HCL** 25 MG TAB PO SCH ×4 (00:21→18:12)
[2021-08-02 00:30] VITALS: BP 127/68
[2021-08-02] MEDS: AMOXICILLIN 500 MG CAP PO SCH ×2 (05:33→13:25)
[2021-08-02 06:09] VITALS: BP 129/63
[2021-08-02] MEDS: SYMBICORT 160/4.5MCG INHALER 6GM INH SCH ×2 (06:38→19:51)
[2021-08-02] MEDS: FLUTICASONE HFA 110 MCG 12 GM INHALER (FLOVENT) INH SCH ×2 (06:38→19:51)
[2021-08-02] MEDS: LACTOBACILLUS ACIDOPHILUS CAP (BACID) PO SCH ×4 (08:54→20:43)
[2021-08-02] MEDS: DOCUSATE SODIUM 100MG CAPSULE PO SCH ×2 (08:54→20:43)
[2021-08-02] MEDS: BACLOFEN 5MG PER 1/2 TABLET PO SCH ×3 (08:54→20:44)
[2021-08-02] MEDS: PRAVASTATIN 20 MG TAB PO SCH (08:54)
[2021-08-02] MEDS: HEPARIN SOD (PORCINE) 5000UNITS/ML 1ML VIAL/SYRINGE SC SCH ×2 (08:54→20:44)
[2021-08-02] MEDS: GABAPENTIN 300 MG CAP PO SCH ×3 (08:54→20:44)
[2021-08-02] MEDS: CLOPIDOGREL 75 MG TAB PO SCH (08:54)
[2021-08-02] MEDS: PANTOPRAZOLE 40MG TAB (PROTONIX) PO SCH (08:54)
[2021-08-02] MEDS: ASPIRIN 81MG ENTERIC TABLET PO SCH (08:54)
[2021-08-02] MEDS: ACETAMINOPHEN 500 MG TAB PO SCH ×3 (08:54→20:44)
[2021-08-02] MEDS: ANALGESIC BALM CRM 3OZ TOP SCH ×3 (08:55→20:45)
[2021-08-02] MEDS: TORSEMIDE 10 MG TABLET PO SCH ×2 (08:55→16:15)
[2021-08-02] MEDS: LACTIC ACID 12% LOTION 225 GM BTL TOP SCH ×2 (08:55→20:46)
[2021-08-02] MEDS: POLYVINYL ALCOHOL OPHTH SOLN 15 ML(LIQUITEARS) OU SCH ×3 (08:56→20:45)
[2021-08-02] MEDS: NYSTATIN 100,000 UNITS/GM TOPICAL PWD 15 GM TOP SCH ×2 (08:56→20:46)
[2021-08-02] MEDS: REMEDY PHYTOPLEX Z-GUARD PASTE 113GM TUBE (FROM STOREROOM PRODUCT) TOP SCH ×3 (08:56→20:47)
--- NOTE | 2021-08-02 12:49 | IPNPDOC ---
PM&R Progress Note DATE OF SERVICE: Aug 02, 2021 Accounting Tutor Progress Note Subjective: Patient seen in his room and was encouraged to start working on his own foot care in therapy and to learn how to put 2x2s between his own toes. REVIEW OF SYSTEMS: The following is a completed review of systems and has been reviewed. Review of systems otherwise unremarkable. PAIN: Patient self reports low back pain EYES: No recent vision changes EARS, NOSE, & THROAT: +deaf CARDIOVASCULAR: Denies chest pain or palpitations PULMONARY: Denies shortness of breath GASTROINTESTINAL: Denies constipation/diarrhea GENITOURINARY: no dysuria MUSCULOSKELETAL:+generalized weakness NEUROLOGICAL: + paresthesias HEMATOLOGICAL: denies easy bruising SKIN: LE wounds PSYCHIATRIC: Unremarkable All other review of systems found to be negative. PHYSICAL EXAMINATION: VITAL SIGNS: Please see below. GENERAL: Pleasant and cooperative. No acute distress. HEENT: PERRL. Extraocular movements intact. Clear conjunctiva CARDIOVASCULAR: Regular rate and rhythm. No murmurs, rubs, or gallops LUNGS: Clear to auscultation bilaterally. No wheezes. No rhonchi ABDOMEN: Soft, nontender, nondistended. Positive bowel sounds. Normal active bowel sounds NEUROLOGICAL: Cranial nerves II through XII grossly intact. Sensation decreased to light touch in stocking pattern with decreased proprioception able to follow commands and answer questions with risk assessment consultant EXTREMITIES: 5\5 strength bilateral upper extremities. 5\5 strength right lower extremity. 5/5 strength in left lower extremity. SKIN: bilat LE venous stasis changes, left foot with dried ulcer (healed), no moisture between toes ASSESSMENT:81-year-old M with past medical history of PAD, CHF who presents status post weakness in setting of sepsis due to LE cellulitis PLAN: 1. Rehab- PT/OT- advance mobility and ADLs, strengthen/stretch/maintain ROM all 4 limbs- emphasize and teach fall recovery, wound care/foot care management prior to d/c home 2. Neuro- patient with significant peripheral polyneuropathy in his LE secondary to PVD and contributing to overall mobility impairment 3. Ortho- right anterior fibular fracture recently NWB while on previous ARU stay, now cleared for WBAT per ortho -patient with right 5th toe proximal phalanx fracture from possibly from fall to floor 2 days prior to dc on last ARU stay- non-operative -LSO for spine support- incorporate spine therapy program into ARU stay if possible --f/u ortho on d/c 4. Cardiac- diastolic CHF cont, fluid restrict, daily weights, torsemide -HTN cont BP meds -PAD- cont ASA and Plavix -HLD- statin -medicine consulted to assist in management 5. Resp- monitor for infection, former smoker with restrictive lung disease- cont fluticasone and symbicort 6. GI ppx- protonix 7. DVT ppx- heparin 6. ID- cont amoxicillin for LE cellulitis, monitor 8. Pain- tylneol, baclofen for back spasms, bengay to back will increase gabapentin dosing for neuropathy 9. Skin- LE wounds please see dressing changes 10. Renal- CKD, monitor for CHERI and consult renal if needed 11. [id number]-08-00-21 to home, progressing towards goals Allergies Coded Allergies: No Known Allergies (Verified , 03/25/18) Vital Signs Vital Signs Date Time Temp Pulse Resp B/P (MAP) Pulse Ox O2 Delivery O2 Flow Rate FiO2 08/02/21 06:09 97.3 73 18 129/63 (85) 99 NIPPV (BIPAP/CPAP) Current Medications Current Medications Current Medications Medications (Trade) Dose Ordered Sig/Geovany Route PRN Reason Start Time Stop Time Status Last Admin Dose Admin Acetaminophen (Tylenol Tab) 1,000 mg TID PO 07/29/21 21:00 08/02/21 08:54 Al Hydrox/Mg Hydrox/Simethicone (Mylanta) 30 ml Q4HP PRN PO DYSPEPSIA 07/29/21 11:30 Albuterol Sulfate (Proventil, Ventolin Hfa) 2 puff Q4HP PRN INH SHORTNESS OF BREATH 07/29/21 11:30 07/30/21 14:30 Amoxicillin (Amoxicillin) 500 mg Q8H PO 07/29/21 22:00 08/02/21 14:01 08/02/21 05:33 Artificial Tears (Akwa Tears) 2 drop TID OU 07/29/21 16:00 08/02/21 08:56 Aspirin (Ecotrin) 81 mg DAILY PO 07/30/21 09:00 08/02/21 08:54 Baclofen (Lioresal) 5 mg TID PO 07/31/21 16:00 08/02/21 08:54 Baclofen (Lioresal) 5 mg TID PRN PO spasm 07/29/21 11:30 07/31/21 15:32 DC 07/31/21 09:38 Budesonide/ Formoterol Fumarate (Symbicort 160/ 4.5mcg) 2 puff RBID INH 07/29/21 20:00 08/02/21 06:38 Clopidogrel Bisulfate (PLAVix) 75 mg DAILY PO 07/30/21 09:00 08/02/21 08:54 Docusate Sodium (Colace) 100 mg BID PO 07/29/21 21:00 08/02/21 08:54 Fluticasone Propionate (Flovent Hfa 110 Mcg) 2 puff RBID INH 07/29/21 20:00 08/02/21 06:38 Gabapentin (Neurontin) 400 mg TID PO 07/29/21 16:00 08/01/21 15:10 DC 08/01/21 15:01 Gabapentin (Neurontin) 600 mg TID PO 08/01/21 21:00 08/02/21 08:54 Heparin Sodium (Porcine) (Heparin) 5,000 units Q12H SC 07/29/21 21:00 08/02/21 08:54 Hydralazine HCl (Apresoline) 25 mg Q8H PO 07/29/21 22:00 07/30/21 12:32 DC 07/30/21 06:43 Hydralazine HCl (Apresoline) 50 mg Q6H PO 07/30/21 12:00 08/02/21 05:33 Lactic Acid (Lac-Hydrin 12% Lotion) 1 dose BID TOP 07/29/21 21:00 08/02/21 08:55 Lactobacillus Acidophilus (Bacid) 1 ea WMHS PO 07/29/21 18:00 08/02/21 08:54 Latanoprost (Xalatan 0.005% Op Soln) 1 drop QHS OU 07/29/21 21:00 08/01/21 22:12 Magnesium Sulfate (Epsom Salt) soak daily at noon in [place] w... DAILY@1200 TOP 08/02/21 12:00 Menthol/Methyl Salicylate (Bengay Cream) apply to back TID TOP 07/31/21 16:00 08/02/21 08:55 Nystatin (Mycostatin Powder, Nystop) 1 dose BID TOP 07/29/21 21:00 08/02/21 08:56 Pantoprazole Sodium (Protonix) 40 mg DAILY PO 07/30/21 09:00 08/02/21 08:54 Pravastatin Sodium (Pravachol) 40 mg DAILY PO 07/30/21 09:00 08/02/21 08:54 Senna (Senokot) 1 tab QHS PO 07/29/21 21:00 08/01/21 22:11 Torsemide (Demadex) 10 mg BID@ PO 07/29/21 17:00 08/02/21 08:55 Tramadol HCl (Ultram) 50 mg Q4HP PRN PO MODERATE PAIN (PS 5-7) 07/29/21 11:30 07/30/21 12:14 AMADOR LANDIN MD Aug 02, 2021 12:49
[2021-08-02] MEDS: MAGNESIUM SULFATE GRANULES(EPSOM SALT) 1LB TOP SCH (13:26)
[2021-08-02 13:55] VITALS: BP 137/61
[2021-08-02] MEDS: traMADol 50 MG TAB PO PRN (18:13)
[2021-08-02 20:00] VITALS: BP 138/58
[2021-08-02] MEDS: SENNA 8.6 MG TAB (SENOKOT) PO SCH (20:44)
[2021-08-02] MEDS: LATANOPROST 0.005% OPHTH SOLN 2.5 ML OU SCH (20:44)
[2021-08-03] MEDS: **hydrALAZINE HCL** 25 MG TAB PO SCH ×4 (00:12→17:54)
[2021-08-03 06:00] VITALS: BP 129/59
[2021-08-03] MEDS: SYMBICORT 160/4.5MCG INHALER 6GM INH SCH ×2 (07:49→20:01)
[2021-08-03] MEDS: FLUTICASONE HFA 110 MCG 12 GM INHALER (FLOVENT) INH SCH ×2 (07:49→20:02)
[2021-08-03] MEDS: BACLOFEN 5MG PER 1/2 TABLET PO SCH ×3 (09:10→21:20)
[2021-08-03] MEDS: ASPIRIN 81MG ENTERIC TABLET PO SCH (09:10)
[2021-08-03] MEDS: DOCUSATE SODIUM 100MG CAPSULE PO SCH ×2 (09:10→21:20)
[2021-08-03] MEDS: LACTOBACILLUS ACIDOPHILUS CAP (BACID) PO SCH ×4 (09:10→21:21)
[2021-08-03] MEDS: PRAVASTATIN 20 MG TAB PO SCH (09:11)
[2021-08-03] MEDS: GABAPENTIN 300 MG CAP PO SCH ×3 (09:11→21:21)
[2021-08-03] MEDS: ACETAMINOPHEN 500 MG TAB PO SCH ×3 (09:11→21:24)
[2021-08-03] MEDS: PANTOPRAZOLE 40MG TAB (PROTONIX) PO SCH (09:11)
[2021-08-03] MEDS: TORSEMIDE 10 MG TABLET PO SCH ×2 (09:11→17:51)
[2021-08-03] MEDS: HEPARIN SOD (PORCINE) 5000UNITS/ML 1ML VIAL/SYRINGE SC SCH ×2 (09:11→21:21)
[2021-08-03] MEDS: CLOPIDOGREL 75 MG TAB PO SCH (09:11)
[2021-08-03] MEDS: REMEDY PHYTOPLEX Z-GUARD PASTE 113GM TUBE (FROM STOREROOM PRODUCT) TOP SCH ×3 (09:12→21:22)
[2021-08-03] MEDS: NYSTATIN 100,000 UNITS/GM TOPICAL PWD 15 GM TOP SCH ×2 (09:13→21:21)
[2021-08-03] MEDS: ANALGESIC BALM CRM 3OZ TOP SCH ×3 (09:13→21:23)
[2021-08-03] MEDS: POLYVINYL ALCOHOL OPHTH SOLN 15 ML(LIQUITEARS) OU SCH ×3 (09:13→21:21)
[2021-08-03] MEDS: LACTIC ACID 12% LOTION 225 GM BTL TOP SCH ×2 (09:14→21:22)
[2021-08-03 09:44] LABS: BASO # 0.1 10^3/uL (0.0-0.2); EOS # 0.2 10^3/uL (0.0-0.5); EOS % 3.6 % (0.0-3.0); HEMATOCRIT 32.2 % (42.0-52.0); HEMOGLOBIN 10.1 g/dl (13.5-17.5); LYMPH # 1.4 10^3/uL (1.5-5.0); LYMPH % 22.6 % (24.0-44.0); MEAN CORPUSCULAR HEMOGLOBIN 30.1 pg (27.0-33.0); MEAN CORPUSCULAR HGB CONC 31.4 g/dl (32.0-36.5); MEAN CORPUSCULAR VOLUME 96.1 fl (80.0-96.0); MONO # 0.7 10^3/uL (0.0-0.8); MONO % 11.7 % (2.0-8.0); NEUTROPHILS # 3.7 10^3/uL (1.5-8.5); NEUTROPHILS % 60.1 % (36.0-66.0); PLATELET COUNT, AUTOMATED 242 10^3/uL (150-450); RED BLOOD COUNT 3.35 10^6/uL (4.30-6.10); WHITE BLOOD COUNT 6.1 10^3/uL (4.0-10.0)
--- NOTE | 2021-08-03 10:22 | IPNPDOC ---
PM&R Progress Note DATE OF SERVICE: Aug 03, 2021 [employer] Builder Progress Note Subjective: Patient stating his right 5th toe is still sore and would like to try a pain patch. REVIEW OF SYSTEMS: The following is a completed review of systems and has been reviewed. Review of systems otherwise unremarkable. PAIN: Patient self reports low back pain EYES: No recent vision changes EARS, NOSE, & THROAT: +deaf CARDIOVASCULAR: Denies chest pain or palpitations PULMONARY: Denies shortness of breath GASTROINTESTINAL: Denies constipation/diarrhea GENITOURINARY: no dysuria MUSCULOSKELETAL:+generalized weakness NEUROLOGICAL: + paresthesias HEMATOLOGICAL: denies easy bruising SKIN: LE wounds PSYCHIATRIC: Unremarkable All other review of systems found to be negative. PHYSICAL EXAMINATION: VITAL SIGNS: Please see below. GENERAL: Pleasant and cooperative. No acute distress. HEENT: PERRL. Extraocular movements intact. Clear conjunctiva CARDIOVASCULAR: Regular rate and rhythm. No murmurs, rubs, or gallops LUNGS: Clear to auscultation bilaterally. No wheezes. No rhonchi ABDOMEN: Soft, nontender, nondistended. Positive bowel sounds. Normal active bowel sounds NEUROLOGICAL: Cranial nerves II through XII grossly intact. Sensation decreased to light touch in stocking pattern with decreased proprioception able to follow commands and answer questions with [employer] EXTREMITIES: 5\5 strength bilateral upper extremities. 5\5 strength right lower extremity. 5/5 strength in left lower extremity. +mild TTP 5th proximal phalanx of right foot SKIN: bilat LE venous stasis changes, left foot with dried ulcer (healed), no moisture between toes ASSESSMENT:81-year-old M with past medical history of PAD, CHF who presents status post weakness in setting of sepsis due to LE cellulitis PLAN: 1. Rehab- PT/OT- advance mobility and ADLs, strengthen/stretch/maintain ROM all 4 limbs- emphasize and teach fall recovery, wound care/foot care management prior to d/c home 2. Neuro- patient with significant peripheral polyneuropathy in his LE secondary to PVD and contributing to overall mobility impairment 3. Ortho- right anterior fibular fracture recently NWB while on previous ARU stay, now cleared for WBAT per ortho -patient with right 5th toe proximal phalanx fracture from possibly from fall to floor 2 days prior to dc on last ARU stay- non-operative -LSO for spine support- incorporate spine therapy program into ARU stay if po ssible --f/u ortho on d/c 4. Cardiac- diastolic CHF cont, fluid restrict, daily weights, torsemide -HTN cont BP meds -PAD- cont ASA and Plavix -HLD- statin -medicine consulted to assist in management 5. Resp- monitor for infection, former smoker with restrictive lung disease- cont fluticasone and symbicort 6. GI ppx- protonix 7. DVT ppx- heparin 6. ID- cont amoxicillin for LE cellulitis, monitor 8. Pain- tylneol, baclofen for back spasms, bengay to back increased gabapentin dosing for neuropathy to 600mg TIF -will change tramadol to standing to help with back pain 9. Skin- LE wounds please see dressing changes 10. Renal- CKD, monitor for CHERI and consult renal if needed 11. Xyyol-06-03-21 to home, progressing towards goals Allergies Coded Allergies: No Known Allergies (Verified , 03/25/18) Vital Signs Vital Signs Date Time Temp Pulse Resp B/P (MAP) Pulse Ox O2 Delivery O2 Flow Rate FiO2 08/03/21 06:01 129/59 08/03/21 06:00 98.9 78 20 92 Room Air Laboratory Data CBC/BMP Laboratory Tests 08/03/21 09:30 Labs 24H Laboratory Tests 2 08/03/21 09:30: Immature Granulocyte % (Auto) 1.0, Neutrophils (%) (Auto) 60.1, Lymphocytes (%) (Auto) 22.6L, Monocytes (%) (Auto) 11.7H, Eosinophils (%) (Auto) 3.6H, Basophils (%) (Auto) 1.0, Neutrophils # (Auto) 3.7, Lymphocytes # (Auto) 1.4L, Monocytes # (Auto) 0.7, Eosinophils # (Auto) 0.2, Basophils # (Auto) 0.1, Nucleated Red Blood Cells % (auto) 0.0 Current Medications Current Medications Current Medications Medications (Trade) Dose Ordered Sig/Geovany Route PRN Reason Start Time Stop Time Status Last Admin Dose Admin Acetaminophen (Tylenol Tab) 1,000 mg TID PO 07/29/21 21:00 08/03/21 09:11 Al Hydrox/Mg Hydrox/Simethicone (Mylanta) 30 ml Q4HP PRN PO DYSPEPSIA 07/29/21 11:30 Albuterol Sulfate (Proventil, Ventolin Hfa) 2 puff Q4HP PRN INH SHORTNESS OF BREATH 07/29/21 11:30 07/30/21 14:30 Amoxicillin (Amoxicillin) 500 mg Q8H PO 07/29/21 22:00 08/02/21 14:01 DC 08/02/21 13:25 Artificial Tears (Akwa Tears) 2 drop TID OU 07/29/21 16:00 08/03/21 09:13 Aspirin (Ecotrin) 81 mg DAILY PO 07/30/21 09:00 08/03/21 09:10 Baclofen (Lioresal) 5 mg TID PO 07/31/21 16:00 08/03/21 09:10 Baclofen (Lioresal) 5 mg TID PRN PO spasm 07/29/21 11:30 07/31/21 15:32 DC 07/31/21 09:38 Budesonide/ Formoterol Fumarate (Symbicort 160/ 4.5mcg) 2 puff RBID INH 07/29/21 20:00 08/03/21 07:49 Clopidogrel Bisulfate (PLAVix) 75 mg DAILY PO 07/30/21 09:00 08/03/21 09:11 Docusate Sodium (Colace) 100 mg BID PO 07/29/21 21:00 08/03/21 09:10 Fluticasone Propionate (Flovent Hfa 110 Mcg) 2 puff RBID INH 07/29/21 20:00 08/02/21 19:51 Gabapentin (Neurontin) 400 mg TID PO 07/29/21 16:00 08/01/21 15:10 DC 08/01/21 15:01 Gabapentin (Neurontin) 600 mg TID PO 08/01/21 21:00 08/03/21 09:11 Heparin Sodium (Porcine) (Heparin) 5,000 units Q12H SC 07/29/21 21:00 08/03/21 09:11 Hydralazine HCl (Apresoline) 25 mg Q8H PO 07/29/21 22:00 07/30/21 12:32 DC 07/30/21 06:43 Hydralazine HCl (Apresoline) 50 mg Q6H PO 07/30/21 12:00 08/03/21 06:01 Lactic Acid (Lac-Hydrin 12% Lotion) 1 dose BID TOP 07/29/21 21:00 08/03/21 09:14 Lactobacillus Acidophilus (Bacid) 1 ea WMHS PO 07/29/21 18:00 08/03/21 09:10 Latanoprost (Xalatan 0.005% Op Soln) 1 drop QHS OU 07/29/21 21:00 08/02/21 20:44 Magnesium Sulfate (Epsom Salt) soak daily at noon in [place] w... DAILY@1200 TOP 08/02/21 12:00 08/02/21 13:26 Menthol/Methyl Salicylate (Bengay Cream) apply to back TID TOP 07/31/21 16:00 08/03/21 09:13 Nystatin (Mycostatin Powder, Nystop) 1 dose BID TOP 07/29/21 21:00 08/03/21 09:13 Pantoprazole Sodium (Protonix) 40 mg DAILY PO 07/30/21 09:00 08/03/21 09:11 Pravastatin Sodium (Pravachol) 40 mg DAILY PO 07/30/21 09:00 08/03/21 09:11 Senna (Senokot) 1 tab QHS PO 07/29/21 21:00 08/02/21 20:44 Torsemide (Demadex) 10 mg BID@ PO 07/29/21 17:00 08/03/21 09:11 Tramadol HCl (Ultram) 50 mg Q4HP PRN PO MODERATE PAIN (PS 5-7) 07/29/21 11:30 08/02/21 18:13 AMADOR LANDIN MD Aug 03, 2021 10:22
[2021-08-03 10:50] LABS: BLOOD UREA NITROGEN 20 MG/DL (7-18); CALCIUM LEVEL 9.3 MG/DL (8.8-10.2); CARBON DIOXIDE LEVEL 31 MEQ/L (21-32); CHLORIDE LEVEL 106 MEQ/L (98-107); CREATININE FOR GFR 1.22 MG/DL (0.70-1.30); GLOMERULAR FILTRATION RATE > 60.0 (>35); GLUCOSE, FASTING 134 MG/DL (70-100); POTASSIUM SERUM 3.8 MEQ/L (3.5-5.1); SODIUM LEVEL 142 MEQ/L (136-145)
[2021-08-03] MEDS: traMADol 50 MG TAB PO PRN (11:11)
[2021-08-03] MEDS: MAGNESIUM SULFATE GRANULES(EPSOM SALT) 1LB TOP SCH (11:12)
[2021-08-03] MEDS ORDERED: traMADol 50 MG TAB PO PRN (13:15)
[2021-08-03] MEDS ORDERED: PILL CUTTER 1 EACH XX PRN (13:30)
[2021-08-03 14:00] VITALS: BP 157/70
[2021-08-03] MEDS: DICLOFENAC EPOLAMINE 1.3 % PATCH TOP SCH ×2 (14:05→21:23)
[2021-08-03] MEDS: traMADol 50 MG TAB PO SCH ×2 (14:06→21:24)
[2021-08-03 20:00] VITALS: BP 120/50
[2021-08-03] MEDS: SENNA 8.6 MG TAB (SENOKOT) PO SCH (21:21)
[2021-08-03] MEDS: LATANOPROST 0.005% OPHTH SOLN 2.5 ML OU SCH (21:23)
[2021-08-04] MEDS: **hydrALAZINE HCL** 25 MG TAB PO SCH ×5 (00:07→23:55)
[2021-08-04 06:00] VITALS: BP 133/64
[2021-08-04] MEDS: SYMBICORT 160/4.5MCG INHALER 6GM INH SCH ×2 (07:45→18:23)
[2021-08-04] MEDS: FLUTICASONE HFA 110 MCG 12 GM INHALER (FLOVENT) INH SCH ×2 (07:46→18:23)
[2021-08-04] MEDS: PANTOPRAZOLE 40MG TAB (PROTONIX) PO SCH (09:52)
[2021-08-04] MEDS: DOCUSATE SODIUM 100MG CAPSULE PO SCH ×2 (09:52→20:07)
[2021-08-04] MEDS: PRAVASTATIN 20 MG TAB PO SCH (09:52)
[2021-08-04] MEDS: BACLOFEN 5MG PER 1/2 TABLET PO SCH ×3 (09:52→20:07)
[2021-08-04] MEDS: GABAPENTIN 300 MG CAP PO SCH ×3 (09:52→20:07)
[2021-08-04] MEDS: CLOPIDOGREL 75 MG TAB PO SCH (09:52)
[2021-08-04] MEDS: HEPARIN SOD (PORCINE) 5000UNITS/ML 1ML VIAL/SYRINGE SC SCH ×2 (09:52→20:07)
[2021-08-04] MEDS: LACTOBACILLUS ACIDOPHILUS CAP (BACID) PO SCH ×4 (09:52→20:07)
[2021-08-04] MEDS: TORSEMIDE 10 MG TABLET PO SCH ×2 (09:52→17:24)
[2021-08-04] MEDS: ASPIRIN 81MG ENTERIC TABLET PO SCH (09:52)
[2021-08-04] MEDS: ACETAMINOPHEN 500 MG TAB PO SCH ×3 (09:53→20:08)
[2021-08-04] MEDS: traMADol 50 MG TAB PO SCH ×3 (09:55→20:08)
[2021-08-04] MEDS: LACTIC ACID 12% LOTION 225 GM BTL TOP SCH ×2 (09:56→20:10)
[2021-08-04] MEDS: DICLOFENAC EPOLAMINE 1.3 % PATCH TOP SCH ×2 (09:56→20:09)
[2021-08-04] MEDS: NYSTATIN 100,000 UNITS/GM TOPICAL PWD 15 GM TOP SCH ×2 (09:56→20:09)
[2021-08-04] MEDS: ANALGESIC BALM CRM 3OZ TOP SCH ×3 (09:56→20:09)
[2021-08-04] MEDS: REMEDY PHYTOPLEX Z-GUARD PASTE 113GM TUBE (FROM STOREROOM PRODUCT) TOP SCH ×3 (09:56→20:09)
[2021-08-04] MEDS: POLYVINYL ALCOHOL OPHTH SOLN 15 ML(LIQUITEARS) OU SCH ×3 (09:57→20:08)
[2021-08-04] MEDS: MAGNESIUM SULFATE GRANULES(EPSOM SALT) 1LB TOP SCH (12:45)
[2021-08-04 14:00] VITALS: BP 131/63
[2021-08-04 20:00] VITALS: BP 122/58
[2021-08-04] MEDS: SENNA 8.6 MG TAB (SENOKOT) PO SCH (20:07)
[2021-08-04] MEDS: LATANOPROST 0.005% OPHTH SOLN 2.5 ML OU SCH (20:09)
[2021-08-05] MEDS: **hydrALAZINE HCL** 25 MG TAB PO SCH ×4 (05:42→23:25)
[2021-08-05 06:00] VITALS: BP 156/66
[2021-08-05] MEDS: SYMBICORT 160/4.5MCG INHALER 6GM INH SCH ×2 (07:36→20:51)
[2021-08-05] MEDS: FLUTICASONE HFA 110 MCG 12 GM INHALER (FLOVENT) INH SCH ×2 (07:36→20:52)
[2021-08-05] MEDS: TORSEMIDE 10 MG TABLET PO SCH ×2 (08:49→17:25)
[2021-08-05] MEDS: DOCUSATE SODIUM 100MG CAPSULE PO SCH ×2 (08:49→21:00)
[2021-08-05] MEDS: BACLOFEN 5MG PER 1/2 TABLET PO SCH ×3 (08:49→21:00)
[2021-08-05] MEDS: PRAVASTATIN 20 MG TAB PO SCH (08:49)
[2021-08-05] MEDS: LACTOBACILLUS ACIDOPHILUS CAP (BACID) PO SCH ×4 (08:49→21:00)
[2021-08-05] MEDS: GABAPENTIN 300 MG CAP PO SCH ×3 (08:49→21:00)
[2021-08-05] MEDS: HEPARIN SOD (PORCINE) 5000UNITS/ML 1ML VIAL/SYRINGE SC SCH ×2 (08:49→21:02)
[2021-08-05] MEDS: CLOPIDOGREL 75 MG TAB PO SCH (08:49)
[2021-08-05] MEDS: PANTOPRAZOLE 40MG TAB (PROTONIX) PO SCH (08:49)
[2021-08-05] MEDS: ASPIRIN 81MG ENTERIC TABLET PO SCH (08:50)
[2021-08-05] MEDS: ACETAMINOPHEN 500 MG TAB PO SCH ×3 (08:50→21:01)
[2021-08-05] MEDS: POLYVINYL ALCOHOL OPHTH SOLN 15 ML(LIQUITEARS) OU SCH ×3 (08:51→21:02)
[2021-08-05] MEDS: ANALGESIC BALM CRM 3OZ TOP SCH ×3 (08:51→21:02)
[2021-08-05] MEDS: traMADol 50 MG TAB PO SCH ×3 (08:51→21:01)
[2021-08-05] MEDS: DICLOFENAC EPOLAMINE 1.3 % PATCH TOP SCH ×2 (08:52→21:02)
[2021-08-05] MEDS: REMEDY PHYTOPLEX Z-GUARD PASTE 113GM TUBE (FROM STOREROOM PRODUCT) TOP SCH ×3 (08:52→21:03)
[2021-08-05] MEDS: NYSTATIN 100,000 UNITS/GM TOPICAL PWD 15 GM TOP SCH ×2 (08:52→21:03)
[2021-08-05] MEDS: LACTIC ACID 12% LOTION 225 GM BTL TOP SCH ×2 (08:52→21:03)
[2021-08-05] MEDS: MAGNESIUM SULFATE GRANULES(EPSOM SALT) 1LB TOP SCH (12:00)
[2021-08-05 12:30] VITALS: BP 149/67
[2021-08-05 19:45] VITALS: BP 134/63
[2021-08-05] MEDS: SENNA 8.6 MG TAB (SENOKOT) PO SCH (21:00)
[2021-08-05] MEDS: LATANOPROST 0.005% OPHTH SOLN 2.5 ML OU SCH (22:16)
[2021-08-06] MEDS: **hydrALAZINE HCL** 25 MG TAB PO SCH ×3 (05:30→18:04)
[2021-08-06 06:00] VITALS: BP 143/67
[2021-08-06] MEDS: SYMBICORT 160/4.5MCG INHALER 6GM INH SCH ×2 (07:49→20:00)
[2021-08-06] MEDS: CLOPIDOGREL 75 MG TAB PO SCH (07:53)
[2021-08-06] MEDS: LACTOBACILLUS ACIDOPHILUS CAP (BACID) PO SCH ×4 (07:53→20:48)
[2021-08-06] MEDS: PRAVASTATIN 20 MG TAB PO SCH (07:53)
[2021-08-06] MEDS: BACLOFEN 5MG PER 1/2 TABLET PO SCH ×3 (07:53→20:49)
[2021-08-06] MEDS: PANTOPRAZOLE 40MG TAB (PROTONIX) PO SCH (07:53)
[2021-08-06] MEDS: GABAPENTIN 300 MG CAP PO SCH ×3 (07:53→20:49)
[2021-08-06] MEDS: ASPIRIN 81MG ENTERIC TABLET PO SCH (07:53)
[2021-08-06] MEDS: traMADol 50 MG TAB PO SCH ×3 (07:54→20:51)
[2021-08-06] MEDS: TORSEMIDE 10 MG TABLET PO SCH ×2 (07:54→16:36)
[2021-08-06] MEDS: DOCUSATE SODIUM 100MG CAPSULE PO SCH ×2 (07:54→20:49)
[2021-08-06] MEDS: ACETAMINOPHEN 500 MG TAB PO SCH ×3 (07:54→20:49)
[2021-08-06] MEDS: HEPARIN SOD (PORCINE) 5000UNITS/ML 1ML VIAL/SYRINGE SC SCH ×2 (07:55→20:48)
[2021-08-06] MEDS: POLYVINYL ALCOHOL OPHTH SOLN 15 ML(LIQUITEARS) OU SCH ×3 (07:55→20:53)
[2021-08-06] MEDS: NYSTATIN 100,000 UNITS/GM TOPICAL PWD 15 GM TOP SCH ×2 (07:56→20:52)
[2021-08-06] MEDS: DICLOFENAC EPOLAMINE 1.3 % PATCH TOP SCH ×2 (07:56→20:52)
[2021-08-06] MEDS: LACTIC ACID 12% LOTION 225 GM BTL TOP SCH ×2 (07:56→20:52)
[2021-08-06] MEDS: ANALGESIC BALM CRM 3OZ TOP SCH ×3 (07:56→20:51)
[2021-08-06] MEDS: REMEDY PHYTOPLEX Z-GUARD PASTE 113GM TUBE (FROM STOREROOM PRODUCT) TOP SCH ×3 (07:56→20:53)
[2021-08-06] MEDS: FLUTICASONE HFA 110 MCG 12 GM INHALER (FLOVENT) INH SCH ×2 (08:00→20:00)
[2021-08-06 08:43] LABS: BASO # 0.1 10^3/uL (0.0-0.2); BASO % 1.4 % (0.0-1.0); EOS # 0.3 10^3/uL (0.0-0.5); EOS % 4.9 % (0.0-3.0); HEMATOCRIT 32.6 % (42.0-52.0); HEMOGLOBIN 10.1 g/dl (13.5-17.5); LYMPH # 1.3 10^3/uL (1.5-5.0); LYMPH % 25.7 % (24.0-44.0); MEAN CORPUSCULAR HEMOGLOBIN 30.1 pg (27.0-33.0); MONO # 0.5 10^3/uL (0.0-0.8); MONO % 9.3 % (2.0-8.0); NEUTROPHILS % 57.7 % (36.0-66.0); PLATELET COUNT, AUTOMATED 221 10^3/uL (150-450); RED BLOOD COUNT 3.36 10^6/uL (4.30-6.10); WHITE BLOOD COUNT 5.1 10^3/uL (4.0-10.0)
[2021-08-06 09:07] LABS: CALCIUM LEVEL 9.3 MG/DL (8.8-10.2); CREATININE FOR GFR 1.25 MG/DL (0.70-1.30); GLOMERULAR FILTRATION RATE 58.9 (>35); POTASSIUM SERUM 3.7 MEQ/L (3.5-5.1)
[2021-08-06 14:00] VITALS: BP 147/67
--- NOTE | 2021-08-06 19:49 | IPNPDOC ---
PM&R Progress Note DATE OF SERVICE: Aug 06, 2021 Director Of Materials Management Progress Note DATE OF ADMISSION: Jul 29, 2021 at 15:05 INPATIENT REHABILITATION ADMISSION DAY: # 8 SUBJECTIVE: 81M pmh HTN, NICOLAS, DM2, restrictive lung disease, HLD, CKD, former smoker, PAD s/p LE extremity balloon angioplasties, bilat LE ulcers with peripheral polyne uropathy recently treated on ARU from 06-19-21 until 07-06-21 where he was diagnosed on admission with a right fibular fracture, his wounds were treated and he required renal oversight for his worsening kidney function, he remained NWB and was sent home at a wheelchair level but he returned to [facility] on 07-25-21 with worsening LE swelling and diagnosed with cellulitis. Hospital course was also noted for hypertensive episodes, wounds in the bilateral legs requiring antibiotics and wound care, he was admitted to ARU July 29, for comprehensive rehabilitation. However visit today was facilitated by a refractory furnace designer, the patient had no new complaints. Feels pleased with the progress being made. Hes having regular bowel movements, good appetite and no pain. REVIEW OF SYSTEMS: The following is a completed review of systems and has been reviewed. Review of systems otherwise unremarkable. REVIEW OF SYSTEMS: The following is a completed review of systems and has been reviewed. Review of systems otherwise unremarkable. PAIN: Patient self reports intermittent low back pain , none currently EYES: No recent vision changes EARS, NOSE, & THROAT: +deaf CARDIOVASCULAR: Denies chest pain or palpitations PULMONARY: Denies shortness of breath GASTROINTESTINAL: Denies constipation/diarrhea GENITOURINARY: no dysuria MUSCULOSKELETAL:+generalized weakness HEMATOLOGICAL: denies easy bruising SKIN: LE wounds PSYCHIATRIC: Unremarkable All other review of systems found to be negative. ALLERGIES: See Below MEDICATIONS: Reviewed, see below. OBJECTIVE: VITAL SIGNS: Please see below. GENERAL: Pleasant animated gesticulations in response to my questions. HEENT: Extraocular movements intact. no adenopathy or thyromegaly. Full cervical range of motion No tenderness cervicothoracic region. CARDIOVASCULAR: S1 S2 occasional extra beats LUNGS: Clear to auscultation bilaterally. No wheezes. No rales or rhonchi. ABDOMEN: Soft, nontender, obese. Positive normal active bowel sounds. NEUROLOGICAL: Cranial nerves II through XII grossly intact.. EXTREMITIES: 5/5 traveling passenger agent, elbow flexion, elbow extension, knee extension, foot dorsiflexion, plantar flexion. SKIN: . Weeping edema bilateral lower extremities FUNCTIONAL STATUS: Modified independent. Supine to sit, rolling bed mobility, sit to stand transfers to commode. Uses rolling walker for transfers and grab bar in the bathroom, sometimes has less balance requiring contact-guard assistance. LABORATORY DATA: Reviewed. Please see below. MICROBIOLOGY: See below ASSESSMENT AND PLAN: DIAGNOSES: Hypertension. NICOLAS. DM 2 Restrictive lung disease. HLD. CKD Former smoker. PhD status post lower extremity balloon angioplasties with bilateral lower extremity ulcers, previously treated on a RU 970 07/06/2021 Right fibular fracture 07/02/2021 Cellulitis Anemia. ASSESSMENT: PLAN: 1. Rehab- PT/OT- advance mobility and ADLs, strengthen/stretch/maintain ROM all 4 limbs- emphasize and teach fall recovery, wound care/foot care management mai or to d/c home 2. Neuro- patient with significant peripheral polyneuropathy in his LE secondary to PVD and contributing to overall mobility impairment 3. Ortho- right anterior fibular fracture recently NWB while on previous ARU stay, now cleared for WBAT per ortho, on Baclofen helping pain -patient with right 5th toe proximal phalanx fracture from possibly from fall to floor 2 days prior to dc on last ARU stay- non-operative -LSO for spine support- incorporate spine therapy program into ARU stay if possible --f/u ortho on d/c 4. Cardiac- diastolic CHF cont, fluid restrict, daily weights, torsemide -HTN cont BP meds -PAD- cont ASA and Plavix -HLD- statin -medicine consulted to assist in management 5. Resp- monitor for infection, former smoker with restrictive lung disease- cont fluticasone and symbicort 6. GI ppx- protonix, nutritional support 7. DVT ppx- heparin 6. ID-completed amoxicillin for LE cellulitis, wound care d care, monitor 8. Pain- tylneol, baclofen for back spasms, bengay to back increased gabapentin dosing for neuropathy to 600mg TIF -will change tramadol to standing to help with back pain 9. Skin- LE wounds continue edema control and dressing changes 10. Renal- CKD, monitor for CHERI and consult renal if needed 11. Phojq-08-40-21 to home, progressing towards goals DISPOSITION Home with family TIME SPENT: Chart Review, examination and documentation 35 minutes. Allergies Coded Allergies: No Known Allergies (Verified , 03/25/18) Vital Signs Vital Signs Date Time Temp Pulse Resp B/P (MAP) Pulse Ox O2 Delivery O2 Flow Rate FiO2 08/06/21 18:04 143/70 08/06/21 14:00 98.0 84 20 95 Room Air Laboratory Data CBC/BMP Laboratory Tests 08/06/21 08:17 Labs 24H Laboratory Tests 2 08/06/21 08:17: Immature Granulocyte % (Auto) 1.0, Neutrophils (%) (Auto) 57.7, Lymphocytes (%) (Auto) 25.7, Monocytes (%) (Auto) 9.3H, Eosinophils (%) (Auto) 4.9H, Basophils (%) (Auto) 1.4H, Neutrophils # (Auto) 3.0, Lymphocytes # (Auto) 1.3L, Monocytes # (Auto) 0.5, Eosinophils # (Auto) 0.3, Basophils # (Auto) 0.1, Nucleated Red Blood Cells % (auto) 0.4H, Anion Gap 4L, Glomerular Filtration Rate 58.9, Calcium Level 9.3 Current Medications Current Medications Current Medications Medications (Trade) Dose Ordered Sig/Geovany Route PRN Reason Start Time Stop Time Status Last Admin Dose Admin Acetaminophen (Tylenol Tab) 1,000 mg TID PO 07/29/21 21:00 08/06/21 16:36 Al Hydrox/Mg Hydrox/Simethicone (Mylanta) 30 ml Q4HP PRN PO DYSPEPSIA 07/29/21 11:30 Albuterol Sulfate (Proventil, Ventolin Hfa) 2 puff Q4HP PRN INH SHORTNESS OF BREATH 07/29/21 11:30 07/30/21 14:30 Amoxicillin (Amoxicillin) 500 mg Q8H PO 07/29/21 22:00 08/02/21 14:01 DC 08/02/21 13:25 Artificial Tears (Akwa Tears) 2 drop TID OU 07/29/21 16:00 08/06/21 16:37 Aspirin (Ecotrin) 81 mg DAILY PO 07/30/21 09:00 08/06/21 07:53 Baclofen (Lioresal) 5 mg TID PO 07/31/21 16:00 08/06/21 16:36 Baclofen (Lioresal) 5 mg TID PRN PO spasm 07/29/21 11:30 07/31/21 15:32 DC 07/31/21 09:38 Budesonide/ Formoterol Fumarate (Symbicort 160/ 4.5mcg) 2 puff RBID INH 07/29/21 20:00 08/06/21 07:49 Clopidogrel Bisulfate (PLAVix) 75 mg DAILY PO 07/30/21 09:00 08/06/21 07:53 Diclofenac Epolamine (Flector 1.3%) 1 patch Q12H TOP 08/03/21 09:00 08/06/21 07:56 Docusate Sodium (Colace) 100 mg BID PO 07/29/21 21:00 08/05/21 21:00 Fluticasone Propionate (Flovent Hfa 110 Mcg) 2 puff RBID INH 07/29/21 20:00 08/05/21 20:52 Gabapentin (Neurontin) 400 mg TID PO 07/29/21 16:00 08/01/21 15:10 DC 08/01/21 15:01 Gabapentin (Neurontin) 600 mg TID PO 08/01/21 21:00 08/06/21 16:35 Heparin Sodium (Porcine) (Heparin) 5,000 units Q12H SC 07/29/21 21:00 08/06/21 07:55 Hydralazine HCl (Apresoline) 25 mg Q8H PO 07/29/21 22:00 07/30/21 12:32 DC 07/30/21 06:43 Hydralazine HCl (Apresoline) 50 mg Q6H PO 07/30/21 12:00 08/06/21 18:04 Lactic Acid (Lac-Hydrin 12% Lotion) 1 dose BID TOP 07/29/21 21:00 08/06/21 07:56 Lactobacillus Acidophilus (Bacid) 1 ea WMHS PO 07/29/21 18:00 08/06/21 18:03 Latanoprost (Xalatan 0.005% Op Soln) 1 drop QHS OU 07/29/21 21:00 08/05/21 22:16 Magnesium Sulfate (Epsom Salt) soak daily at noon in [place] w... DAILY@1200 TOP 08/02/21 12:00 08/04/21 12:45 Menthol/Methyl Salicylate (Bengay Cream) apply to back TID TOP 07/31/21 16:00 08/06/21 16:37 Nystatin (Mycostatin Powder, Nystop) 1 dose BID TOP 07/29/21 21:00 08/06/21 07:56 Pantoprazole Sodium (Protonix) 40 mg DAILY PO 07/30/21 09:00 08/06/21 07:53 Pravastatin Sodium (Pravachol) 40 mg DAILY PO 07/30/21 09:00 08/06/21 07:53 Senna (Senokot) 1 tab QHS PO 07/29/21 21:00 08/05/21 21:00 Torsemide (Demadex) 10 mg BID@, PO 07/29/21 17:00 08/06/21 16:36 Tramadol HCl (Ultram) 25 mg Q8HP PRN PO MODERATE PAIN (PS >7/10) 08/03/21 13:15 Tramadol HCl (Ultram) 25 mg TID@0800,1400,2000 PO 08/03/21 14:00 08/06/21 07:54 Tramadol HCl (Ultram) 50 mg Q4HP PRN PO MODERATE PAIN (PS 5-7) 07/29/21 11:30 08/03/21 13:15 DC 08/03/21 11:11 TONY HOPPER MD Aug 06, 2021 19:49
[2021-08-06 20:00] VITALS: BP 154/64
[2021-08-06] MEDS: MAGNESIUM SULFATE GRANULES(EPSOM SALT) 1LB TOP SCH (20:48)
[2021-08-06] MEDS: SENNA 8.6 MG TAB (SENOKOT) PO SCH (20:49)
[2021-08-06] MEDS: LATANOPROST 0.005% OPHTH SOLN 2.5 ML OU SCH (20:53)
[2021-08-07] MEDS: **hydrALAZINE HCL** 25 MG TAB PO SCH ×4 (00:26→18:02)
[2021-08-07 05:43] VITALS: BP 168/70
--- NOTE | 2021-08-07 08:45 | IPNPDOC ---
PM&R Progress Note DATE OF SERVICE: Aug 07, 2021 Stack Clerk Progress Note DATE OF ADMISSION: Jul 29, 2021 at 15:05 INPATIENT REHABILITATION ADMISSION DAY: # 9 SUBJECTIVE: 81M pmh HTN, NICOLAS, DM2, restrictive lung disease, HLD, CKD, former smoker, PAD s/p LE extremity balloon angioplasties, bilat LE ulcers with peripheral polyneuropathy recently treated on ARU from 06-19-21 until 07-06-21 where he was diagnosed on admission with a right fibular fracture, his wounds were treated and he required renal oversight for his worsening kidney function, he remained NWB and was sent home at a wheelchair level but he returned to [facility] on 07-25-21 with worsening LE swelling and diagnosed with cellulitis. Hospital course was also noted for hypertensive episodes, wounds in the bilateral legs requiring antibiotics and wound care, he was admitted to ARU July 29, for comprehensive rehabilitation. 08.06 Our visit today was facilitated by a urban design consultant, the patient had no new complaints. Feels pleased with the progress being made. Hes having regular bowel movements, good appetite and no pain. 08.07.21 patient is learning to apply creams to the legs, notes pruritus. Woke this morning sweating and wet, possible urinary incontinence. He is moving bowels regularly. Has good appetite. No complaint of pain, is doing well and ho pefully looking forward to discharge soon. REVIEW OF SYSTEMS: The following is a completed review of systems and has been reviewed. Review of systems otherwise unremarkable. PAIN: Patient self reported intermittent low back and lower extremity pain , none currently EYES: No recent vision changes EARS, NOSE, & THROAT: +deaf CARDIOVASCULAR: Denies chest pain or palpitations PULMONARY: Denies shortness of breath GASTROINTESTINAL: Denies constipation/diarrhea GENITOURINARY: no dysuria MUSCULOSKELETAL:+generalized weakness HEMATOLOGICAL: denies easy bruising SKIN: LE wounds PSYCHIATRIC: Unremarkable All other review of systems found to be negative. ALLERGIES: See Below MEDICATIONS: Reviewed, see below. OBJECTIVE: VITAL SIGNS: Please see below. GENERAL: Pleasant animated gesticulations in response to my questions, communicates with tower truck driver. HEENT: Extraocular movements intact. no adenopathy or thyromegaly. Full cervical range of motion CARDIOVASCULAR: S1 S2 occasional extra beats LUNGS: Clear to auscultation bilaterally. No wheezes. No rales or rhonchi. ABDOMEN: Soft, nontender, obese. Positive normal active bowel sounds. NEUROLOGICAL: Cranial nerves II through XII grossly intact.. EXTREMITIES: 5/5 silk hanger, elbow flexion, elbow extension. No tenderness right fibular head, slight tenderness lateral malleolus. No tenderness 5th toe. Toes by guaze, dry, no open sore or lesions. SKIN: . Weeping brawny edema bilateral lower extremities right worse than left foot. Onychomycotic changes bilateral toenails. FUNCTIONAL STATUS: Modified independent. Supine to sit, rolling bed mobility, sit to stand transfers to commode. Uses rolling walker for transfers and grab bar in the bathroom, sometimes has less balance requiring contact-guard assistance. Working on stairs and ready for a trial of mod I in the room. LABORATORY DATA: Reviewed. Please see below. MICROBIOLOGY: See below ASSESSMENT AND PLAN: DIAGNOSES: Hypertension. NICOLAS. DM 2 Restrictive lung disease. HLD. CKD Former smoker. PVD status post lower extremity balloon angioplasties with bilateral lower extremity ulcers, previously treated on a RU 970 07/06/2021 Right fibular fracture 07/02/2021 Cellulitis Anemia Vascular insufficiency with peripheral edema Deafness ASSESSMENT: PLAN: 1. Rehab- PT/OT- advance mobility and ADLs, strengthen/stretch/maintain ROM all 4 limbs- emphasize and teach fall recovery, wound care/foot care management prior to d/c home 2. Neuro- patient with significant peripheral polyneuropathy in his LE secondary to PVD and contributing to overall mobility impairment 3. Ortho- right anterior fibular fracture recently NWB while on previous ARU stay, now cleared for WBAT per ortho, on Baclofen helping pain -patient with right 5th toe proximal phalanx fracture from possibly from fall to floor 2 days prior to dc on last ARU stay- non-operative -LSO for spine support- incorporate spine therapy program into ARU stay if possible --f/u ortho on d/c 4. Cardiac- diastolic CHF cont, fluid restrict, daily weights, torsemide -HTN cont BP meds -PAD- cont ASA and Plavix -HLD- statin -medicine consulted to assist in management 5. Resp- monitor for infection, former smoker with restrictive lung disease- cont fluticasone and symbicort 6. GI ppx- protonix, nutritional support 7. DVT ppx- heparin 6. ID-completed amoxicillin for LE cellulitis, wound care d care, monitor 8. Pain- tylneol, baclofen for back spasms, bengay to back increased gabapentin dosing for neuropathy to 600mg TIF -will change tramadol to standing to help with back pain 9. Skin- LE wounds continue edema control and dressing changes, add Vitamin C, Zinc to facilitate wound healing,Feso4 for anemia and improved oxygen carrying capacity 10. Renal- CKD, monitor for CHERI and consult renal if needed 11. [id number] to home, progressing towards goals DISPOSITION Home with family TIME SPENT: Chart Review, examination and documentation 35 minutes. Allergies Coded Allergies: No Known Allergies (Verified , 03/25/18) Vital Signs Vital Signs Date Time Temp Pulse Resp B/P (MAP) Pulse Ox O2 Delivery O2 Flow Rate FiO2 08/07/21 05:43 97.2 57 18 168/70 (102) 97 Room Air Current Medications Current Medications Current Medications Medications (Trade) Dose Ordered Sig/Geovany Route PRN Reason Start Time Stop Time Status Last Admin Dose Admin Acetaminophen (Tylenol Tab) 1,000 mg TID PO 07/29/21 21:00 08/06/21 20:49 Al Hydrox/Mg Hydrox/Simethicone (Mylanta) 30 ml Q4HP PRN PO DYSPEPSIA 07/29/21 11:30 Albuterol Sulfate (Proventil, Ventolin Hfa) 2 puff Q4HP PRN INH SHORTNESS OF BREATH 07/29/21 11:30 07/30/21 14:30 Amoxicillin (Amoxicillin) 500 mg Q8H PO 07/29/21 22:00 08/02/21 14:01 DC 08/02/21 13:25 Artificial Tears (Akwa Tears) 2 drop TID OU 07/29/21 16:00 08/06/21 20:53 Aspirin (Ecotrin) 81 mg DAILY PO 07/30/21 09:00 08/06/21 07:53 Baclofen (Lioresal) 5 mg TID PO 07/31/21 16:00 08/06/21 20:49 Baclofen (Lioresal) 5 mg TID PRN PO spasm 07/29/21 11:30 07/31/21 15:32 DC 07/31/21 09:38 Budesonide/ Formoterol Fumarate (Symbicort 160/ 4.5mcg) 2 puff RBID INH 07/29/21 20:00 08/06/21 07:49 Clopidogrel Bisulfate (PLAVix) 75 mg DAILY PO 07/30/21 09:00 08/06/21 07:53 Diclofenac Epolamine (Flector 1.3%) 1 patch Q12H TOP 08/03/21 09:00 08/06/21 20:52 Docusate Sodium (Colace) 100 mg BID PO 07/29/21 21:00 08/06/21 20:49 Fluticasone Propionate (Flovent Hfa 110 Mcg) 2 puff RBID INH 07/29/21 20:00 08/05/21 20:52 Gabapentin (Neurontin) 400 mg TID PO 07/29/21 16:00 08/01/21 15:10 DC 08/01/21 15:01 Gabapentin (Neurontin) 600 mg TID PO 08/01/21 21:00 08/06/21 20:49 Heparin Sodium (Porcine) (Heparin) 5,000 units Q12H SC 07/29/21 21:00 08/06/21 20:48 Hydralazine HCl (Apresoline) 25 mg Q8H PO 07/29/21 22:00 07/30/21 12:32 DC 07/30/21 06:43 Hydralazine HCl (Apresoline) 50 mg Q6H PO 07/30/21 12:00 08/07/21 05:27 Lactic Acid (Lac-Hydrin 12% Lotion) 1 dose BID TOP 07/29/21 21:00 08/06/21 20:52 Lactobacillus Acidophilus (Bacid) 1 ea WMHS PO 07/29/21 18:00 08/06/21 20:48 Latanoprost (Xalatan 0.005% Op Soln) 1 drop QHS OU 07/29/21 21:00 08/06/21 20:53 Magnesium Sulfate (Epsom Salt) soak daily at noon in luke w... DAILY@1200 TOP 08/02/21 12:00 08/06/21 20:48 Menthol/Methyl Salicylate (Bengay Cream) apply to back TID TOP 07/31/21 16:00 08/06/21 20:51 Nystatin (Mycostatin Powder, Nystop) 1 dose BID TOP 07/29/21 21:00 08/06/21 20:52 Pantoprazole Sodium (Protonix) 40 mg DAILY PO 07/30/21 09:00 08/06/21 07:53 Pravastatin Sodium (Pravachol) 40 mg DAILY PO 07/30/21 09:00 08/06/21 07:53 Senna (Senokot) 1 tab QHS PO 07/29/21 21:00 08/06/21 20:49 Torsemide (Demadex) 10 mg BID@, PO 07/29/21 17:00 08/06/21 16:36 Tramadol HCl (Ultram) 25 mg Q8HP PRN PO MODERATE PAIN (PS >7/10) 08/03/21 13:15 Tramadol HCl (Ultram) 25 mg TID@0800,1400,2000 PO 08/03/21 14:00 08/06/21 20:51 Tramadol HCl (Ultram) 50 mg Q4HP PRN PO MODERATE PAIN (PS 5-7) 07/29/21 11:30 08/03/21 13:15 DC 08/03/21 11:11 TONY HOPPER MD Aug 07, 2021 08:44
[2021-08-07] MEDS ORDERED: SILVER SULFADIAZINE 1% CR 50 GM JAR TOP SCH (09:00)
[2021-08-07] MEDS: DOCUSATE SODIUM 100MG CAPSULE PO SCH ×2 (09:00→21:36)
[2021-08-07] MEDS: REMEDY PHYTOPLEX Z-GUARD PASTE 113GM TUBE (FROM STOREROOM PRODUCT) TOP SCH ×3 (09:00→21:38)
[2021-08-07] MEDS: PANTOPRAZOLE 40MG TAB (PROTONIX) PO SCH (09:11)
[2021-08-07] MEDS: BACLOFEN 5MG PER 1/2 TABLET PO SCH ×3 (09:11→21:36)
[2021-08-07] MEDS: TORSEMIDE 10 MG TABLET PO SCH ×2 (09:11→18:03)
[2021-08-07] MEDS: ASPIRIN 81MG ENTERIC TABLET PO SCH (09:11)
[2021-08-07] MEDS: FERROUS SULFATE 325MG TAB PO SCH (09:11)
[2021-08-07] MEDS: PRAVASTATIN 20 MG TAB PO SCH (09:11)
[2021-08-07] MEDS: CLOPIDOGREL 75 MG TAB PO SCH (09:12)
[2021-08-07] MEDS: GABAPENTIN 300 MG CAP PO SCH ×3 (09:12→21:36)
[2021-08-07] MEDS: HEPARIN SOD (PORCINE) 5000UNITS/ML 1ML VIAL/SYRINGE SC SCH ×2 (09:12→21:35)
[2021-08-07] MEDS: ACETAMINOPHEN 500 MG TAB PO SCH ×3 (09:12→21:37)
[2021-08-07] MEDS: DICLOFENAC EPOLAMINE 1.3 % PATCH TOP SCH ×2 (09:13→21:37)
[2021-08-07] MEDS: ANALGESIC BALM CRM 3OZ TOP SCH ×3 (09:13→21:39)
[2021-08-07] MEDS: LACTIC ACID 12% LOTION 225 GM BTL TOP SCH ×2 (09:13→21:38)
[2021-08-07] MEDS: NYSTATIN 100,000 UNITS/GM TOPICAL PWD 15 GM TOP SCH ×2 (09:14→21:38)
[2021-08-07] MEDS: LACTOBACILLUS ACIDOPHILUS CAP (BACID) PO SCH ×4 (09:16→21:37)
[2021-08-07] MEDS: POLYVINYL ALCOHOL OPHTH SOLN 15 ML(LIQUITEARS) OU SCH ×3 (09:17→21:39)
[2021-08-07] MEDS: traMADol 50 MG TAB PO SCH ×3 (09:17→21:36)
[2021-08-07] MEDS: ZINC SULFATE 220 MG CAP PO SCH (11:55)
[2021-08-07] MEDS: MAGNESIUM SULFATE GRANULES(EPSOM SALT) 1LB TOP SCH (12:00)
[2021-08-07 14:00] VITALS: BP 135/61
[2021-08-07] MEDS ORDERED: [UNRECOGNIZED DRUG - CODE] TOP (18:01)
[2021-08-07] MEDS ORDERED: MUSCCRE9 TOP (18:01)
[2021-08-07] MEDS ORDERED: FERR1TAB8 PO (18:01)
[2021-08-07] MEDS ORDERED: TRAM50TA2 PO (18:01)
[2021-08-07] MEDS ORDERED: GABA-282 PO (18:01)
[2021-08-07] MEDS ORDERED: SILV50CR TOP (18:01)
[2021-08-07] MEDS ORDERED: DICL1PAT6 TOP (18:01)
[2021-08-07] MEDS ORDERED: TORS10TA3 PO (18:01)
[2021-08-07 20:00] VITALS: BP 141/65
[2021-08-07] MEDS: SYMBICORT 160/4.5MCG INHALER 6GM INH SCH (21:20)
[2021-08-07] MEDS: FLUTICASONE HFA 110 MCG 12 GM INHALER (FLOVENT) INH SCH (21:20)
[2021-08-07] MEDS: SENNA 8.6 MG TAB (SENOKOT) PO SCH (21:35)
[2021-08-07] MEDS: LATANOPROST 0.005% OPHTH SOLN 2.5 ML OU SCH (21:39)
[2021-08-08] MEDS: **hydrALAZINE HCL** 25 MG TAB PO SCH ×3 (00:24→12:02)
[2021-08-08 06:00] VITALS: BP 133/64
[2021-08-08] MEDS: FLUTICASONE HFA 110 MCG 12 GM INHALER (FLOVENT) INH SCH (08:00)
[2021-08-08] MEDS: SYMBICORT 160/4.5MCG INHALER 6GM INH SCH (08:00)
[2021-08-08] MEDS: DICLOFENAC EPOLAMINE 1.3 % PATCH TOP SCH (08:29)
[2021-08-08] MEDS: GABAPENTIN 300 MG CAP PO SCH (08:29)
[2021-08-08] MEDS: DOCUSATE SODIUM 100MG CAPSULE PO SCH (08:29)
[2021-08-08] MEDS: LACTOBACILLUS ACIDOPHILUS CAP (BACID) PO SCH ×2 (08:30→12:02)
[2021-08-08] MEDS: ASPIRIN 81MG ENTERIC TABLET PO SCH (08:30)
[2021-08-08] MEDS: PRAVASTATIN 20 MG TAB PO SCH (08:31)
[2021-08-08] MEDS: traMADol 50 MG TAB PO SCH (08:31)
[2021-08-08] MEDS: ACETAMINOPHEN 500 MG TAB PO SCH (08:32)
[2021-08-08] MEDS: BACLOFEN 5MG PER 1/2 TABLET PO SCH (08:32)
[2021-08-08] MEDS: CLOPIDOGREL 75 MG TAB PO SCH (08:32)
[2021-08-08] MEDS: TORSEMIDE 10 MG TABLET PO SCH (08:32)
[2021-08-08] MEDS: FERROUS SULFATE 325MG TAB PO SCH (08:32)
[2021-08-08] MEDS: PANTOPRAZOLE 40MG TAB (PROTONIX) PO SCH (08:32)
[2021-08-08] MEDS: HEPARIN SOD (PORCINE) 5000UNITS/ML 1ML VIAL/SYRINGE SC SCH (08:33)
[2021-08-08] MEDS: ZINC SULFATE 220 MG CAP PO SCH (08:33)
[2021-08-08] MEDS: REMEDY PHYTOPLEX Z-GUARD PASTE 113GM TUBE (FROM STOREROOM PRODUCT) TOP SCH (08:39)
[2021-08-08] MEDS: POLYVINYL ALCOHOL OPHTH SOLN 15 ML(LIQUITEARS) OU SCH (08:41)
[2021-08-08] MEDS: LACTIC ACID 12% LOTION 225 GM BTL TOP SCH (08:41)
[2021-08-08] MEDS: NYSTATIN 100,000 UNITS/GM TOPICAL PWD 15 GM TOP SCH (08:41)
[2021-08-08] MEDS: ANALGESIC BALM CRM 3OZ TOP SCH (08:42)
[2021-08-08] MEDS ORDERED: TRAM50TA2 PO (10:47)
[2021-08-08 12:02] VITALS: BP 128/60
[2021-08-08] MEDS: MAGNESIUM SULFATE GRANULES(EPSOM SALT) 1LB TOP SCH (12:03)
--- NOTE | 2021-08-08 15:42 | DS.PDOC ---
PM&R Discharge Summary Contour Band Saw Operator Vertical Discharge Note DATE OF ADMISSION: Jul 29, 2021 at 15:05 DATE OF DISCHARGE: Aug 08, 2021 at 13:40 DATE OF ADMISSION: 07/29/2021 DATE OF DISCHARGE: 08/08/2021 DISCHARGE DIAGNOSES: Hypertension. NICOLAS. DM 2 Restrictive lung disease. HLD. CKD Former smoker. PVD status post lower extremity balloon angioplasties with bilateral lower extremity ulcers, previously treated on a RU 970 07/06/2021 Right fibular fracture 07/02/2021 Cellulitis Anemia Vascular insufficiency with peripheral edema Deafness PAST MEDICAL HISTORY: Hypertension. NICOLAS. Diabetes. Restrictive lung disease. CK D PAD status post extremity balloon angioplasties bilateral lower extreme ulcers peripheral polyneuropathy. Deaf PAST SURGICAL HISTORY: Knee Surgery, shoulder arthroplasty, skin excision HOSPITAL COURSE: This patient was admitted to comprehensive rehabilitation on July 29, after return to the acute hospital for worsening lower extremity swelling cellulitis and slowly healing right fibular fracture. He did well with a course of patient education, rehabilitative nursing care for wound management, PT, OT for mobility and self-care skills. All goals were achieved at the time of discharge including the trial of room privileges. Bilateral lower extremity edema left worse than right, improved challenging, however, final optimal solution appeared to be unwinding Silvadene with final platelet zinc oxide and Telfa pad wrapped with Kerlix. PHYSICAL EXAMINATION: GENERAL: Pleasant animated gesticulations in response to my questions, communicates with welding specialist. HEENT: Extraocular movements intact. no adenopathy or thyromegaly. Full cervical range of motion CARDIOVASCULAR: S1 S2 occasional extra beats LUNGS: Clear to auscultation bilaterally. No wheezes. No rales or rhonchi. ABDOMEN: Soft, nontender, obese. Positive normal active bowel sounds. NEUROLOGICAL: Cranial nerves II through XII grossly intact, with exception of deafness.. EXTREMITIES: 5/5 real estate sales manager, elbow flexion, elbow extension. No tenderness right fibular head, slight tenderness lateral malleolus. No tenderness 5th toe. Toes by guaze, dry, no open sore or lesions , 1 feet. SKIN: . Weeping brawny edema bilateral lower extremities, left worse than right for leg. Onychomycotic changes bilateral toenails. FUNCTIONAL STATUS AT DISCHARGE: Modified independent. Supine to sit, rolling bed mobility, sit to stand transfers to commode. Uses rolling walker for transfers and grab bar in the bathroom, sometimes has less balance requiring contact-guard assistance. Working on stairs LABORATORY DATA: Please see below. ALLERGIES: See below. MEDICATIONS: See Below. DISCHARGE DISPOSITION: Home with family, close follow-up with home health, wound care, primary care physician for continued adjustment of medications TIME SPENT: Chart Review, examination and documentation 60 minutes including final dressing and wound care treatment with nursing. This document is generated using speech recognition software which may result in grammatical, typographical and individual word errors. Vital Signs/I&O Vital Sign - Last 24 Hours 08/07/21 08/07/21 08/07/21 08/08/21 18:02 20:00 21:36 00:24 Temp 97.6 Pulse 67 Resp 18 18 B/P (MAP) 157/72 141/65 (90) 152/64 Pulse Ox 95 O2 Delivery Room Air Room Air 08/08/21 08/08/21 08/08/21 08/08/21 05:44 06:00 08:31 12:02 Temp 97.5 Pulse 71 Resp 17 18 B/P (MAP) 133/64 133/64 (87) 128/60 Pulse Ox 91 O2 Delivery Room Air Room Air I&O- Last 24 Hours up to 6 AM 08/08/21 06:00 Intake Total 1320 ml Output Total 380 ml Balance 940 ml Laboratory Data Labs 48H Laboratory Tests 08/07/21 09:30: 08/07/21 20:02: Bedside Glucose (Misc Panel) 145H 08/08/21 05:46: Bedside Glucose (Misc Panel) 104 08/08/21 11:33: Bedside Glucose (Misc Panel) 94 FSBS Laboratory Tests Test 08/07/21 20:02 08/08/21 05:46 08/08/21 11:33 Range/Units Bedside Glucose (Misc Panel) 145 104 94 83-110 MG/DL Medications Medications Current Medications Medications (Trade) Dose Ordered Sig/Geovany Route PRN Reason Start Time Stop Time Status Last Admin Dose Admin Acetaminophen (Tylenol Tab) 1,000 mg TID PO 07/29/21 21:00 08/08/21 13:54 DC 08/08/21 08:32 Al Hydrox/Mg Hydrox/Simethicone (Mylanta) 30 ml Q4HP PRN PO DYSPEPSIA 07/29/21 11:30 08/08/21 13:54 DC Albuterol Sulfate (Proventil, Ventolin Hfa) 2 puff Q4HP PRN INH SHORTNESS OF BREATH 07/29/21 11:30 08/08/21 13:54 DC 07/30/21 14:30 Amoxicillin (Amoxicillin) 500 mg Q8H PO 07/29/21 22:00 08/02/21 14:01 DC 08/02/21 13:25 Artificial Tears (Akwa Tears) 2 drop TID OU 07/29/21 16:00 08/08/21 13:54 DC 08/08/21 08:41 Aspirin (Ecotrin) 81 mg DAILY PO 07/30/21 09:00 08/08/21 13:54 DC 08/08/21 08:30 Baclofen (Lioresal) 5 mg TID PO 07/31/21 16:00 08/08/21 13:54 DC 08/08/21 08:32 Baclofen (Lioresal) 5 mg TID PRN PO spasm 07/29/21 11:30 07/31/21 15:32 DC 07/31/21 09:38 Budesonide/ Formoterol Fumarate (Symbicort 160/ 4.5mcg) 2 puff RBID INH 07/29/21 20:00 08/08/21 13:54 DC 08/07/21 21:20 Clopidogrel Bisulfate (PLAVix) 75 mg DAILY PO 07/30/21 09:00 08/08/21 13:54 DC 08/08/21 08:32 Diclofenac Epolamine (Flector 1.3%) 1 patch Q12H TOP 08/03/21 09:00 08/08/21 13:54 DC 08/08/21 08:29 Docusate Sodium (Colace) 100 mg BID PO 07/29/21 21:00 08/08/21 13:54 DC 08/08/21 08:29 Ferrous Sulfate (Ferrous Sulfate) 325 mg DAILY PO 08/07/21 09:00 08/08/21 13:54 DC 08/08/21 08:32 Fluticasone Propionate (Flovent Hfa 110 Mcg) 2 puff RBID INH 07/29/21 20:00 08/08/21 13:54 DC 08/07/21 21:20 Gabapentin (Neurontin) 400 mg TID PO 07/29/21 16:00 08/01/21 15:10 DC 08/01/21 15:01 Gabapentin (Neurontin) 600 mg TID PO 08/01/21 21:00 08/08/21 13:54 DC 08/08/21 08:29 Heparin Sodium (Porcine) (Heparin) 5,000 units Q12H SC 07/29/21 21:00 08/08/21 13:54 DC 08/08/21 08:33 Hydralazine HCl (Apresoline) 25 mg Q8H PO 07/29/21 22:00 07/30/21 12:32 DC 07/30/21 06:43 Hydralazine HCl (Apresoline) 50 mg Q6H PO 07/30/21 12:00 08/08/21 13:54 DC 08/08/21 12:02 Lactic Acid (Lac-Hydrin 12% Lotion) 1 dose BID TOP 07/29/21 21:00 08/08/21 13:54 DC 08/08/21 08:41 Lactobacillus Acidophilus (Bacid) 1 ea WMHS PO 07/29/21 18:00 08/08/21 13:54 DC 08/08/21 12:02 Latanoprost (Xalatan 0.005% Op Soln) 1 drop QHS OU 07/29/21 21:00 08/08/21 13:54 DC 08/07/21 21:39 Magnesium Sulfate (Epsom Salt) soak daily at noon in luke w... DAILY@1200 TOP 08/02/21 12:00 08/08/21 13:54 DC 08/08/21 12:03 Menthol/Methyl Salicylate (Bengay Cream) apply to back TID TOP 07/31/21 16:00 08/08/21 13:54 DC 08/08/21 08:42 Nystatin (Mycostatin Powder, Nystop) 1 dose BID TOP 07/29/21 21:00 08/08/21 13:54 DC 08/08/21 08:41 Pantoprazole Sodium (Protonix) 40 mg DAILY PO 07/30/21 09:00 08/08/21 13:54 DC 08/08/21 08:32 Pravastatin Sodium (Pravachol) 40 mg DAILY PO 07/30/21 09:00 08/08/21 13:54 DC 08/08/21 08:31 Senna (Senokot) 1 tab QHS PO 07/29/21 21:00 08/08/21 13:54 DC 08/07/21 21:35 Silver Sulfadiazine (Silvadene 1%) APPLY TO LEFT FORELEG Q2D TOP 08/07/21 09:00 08/08/21 13:54 DC 08/07/21 12:00 Torsemide (Demadex) 10 mg BID@,17 PO 07/29/21 17:00 08/08/21 13:54 DC 08/08/21 08:32 Tramadol HCl (Ultram) 25 mg Q8HP PRN PO MODERATE PAIN (PS >7/10) 08/03/21 13:15 08/08/21 13:54 DC Tramadol HCl (Ultram) 25 mg TID@0800,1400,2000 PO 08/03/21 14:00 08/08/21 13:54 DC 08/08/21 08:31 Tramadol HCl (Ultram) 50 mg Q4HP PRN PO MODERATE PAIN (PS 5-7) 07/29/21 11:30 08/03/21 13:15 DC 08/03/21 11:11 Zinc Sulfate (Zinc Sulfate) 220 mg DAILY PO 08/07/21 09:00 08/08/21 13:54 DC 08/08/21 08:33 Scheduled Aspirin (Aspirin EC) 81 Mg Tablet.dr, 81 MG PO DAILY, (Reported) Atenolol (Atenolol) 25 Mg Tablet, 12.5 MG PO DAILY, (Reported) HOLD IF HR<60, HOLD IF BLODD PRESSURE IS LOW Clopidogrel Bisulfate (Plavix) 75 Mg Tablet, 75 MG PO DAILY, (Reported) Diclofenac Epolamine (Diclofenac Epolamine) 1.3% Patch, 1 PATCH TOP Q12H Eyelid Cleanser Comb No.7 (Ocusoft Lid Scrub) 1 Each Kit, 1 DOSE TOP BID, (Reported) Ferrous Sulfate (Ferrous Sulfate) 325 Mg Tablet, 325 MG PO DAILY Fluticasone/Vilanterol (Breo Ellipta 100-25 Mcg INH) 1 Each Blst.w.dev, 1 PUFF INH DAILY, (Reported) Gabapentin (Gabapentin) 300 Mg Capsule, 600 MG PO TID Hydralazine HCl (Hydralazine HCl) 25 Mg Tablet, 25 MG PO TID, (Reported) 0600, 1400, 2200 Latanoprost (Xalatan) 0.005% 2.5ML Drops, 1 DROP OU QHS, (Reported) Magnesium Sulfate (Epsom Salt) 1,810 Gm Granules, 0 DOSE TOP DAILY@1200 Methyl Salicylate/Menthol (Muscle Rub Cream) 85 Gm Cream..g., 0 DOSE TOP TID [place]-3 Fatty Acids/Fish Oil (Fish Oil 1,000 mg Capsule) 1 Each Capsule, 1,000 MG PO DAILY, (Reported) Pantoprazole Sodium (Pantoprazole Sodium) 40 Mg Tablet.dr, 40 MG PO DAILY, (Reported) Pravastatin Sodium (Pravastatin Sodium) 40 Mg Tablet, 40 MG PO DAILY, (Reported) Psyllium Husk (Reguloid) 0.4 Gm Capsule, 800 MG PO TID, (Reported) Silver Sulfadiazine (Ssd) 50 Gm Cream..g., 0 GM TOP Q2D Torsemide (Torsemide) 10 Mg Tablet, 10 MG PO BID, (Reported) 0900, 1700 Torsemide (Torsemide) 10 Mg Tablet, 10 MG PO BID@09,17 Tramadol HCl (Tramadol HCl) 50 Mg Tablet, 25 MG PO TID@0800,1400,2000 Scheduled PRN Albuterol Sulfate (Proair Hfa) 8.5 Gm Hfa.aer.ad, 2 PUFF INH QID PRN for SHORTNESS OF BREATH, (Reported) Baclofen (Baclofen) 10 Mg Tablet, 5 MG PO TID PRN for MUSCLE SPASMS, (Reported) Carboxymethyl/Glycerin/Poly80 (Refresh Optive Advanced Drops) 10 Ml Drops, 1 DROP OU QID PRN for DRY EYES, (Reported) Methyl Salicylate/Menthol (Bengay Greaseless Cream) 57 Gm Cream..g., 1 DOSE EXT TID PRN for MILD PAIN (PS 1-4), (Reported) Allergies Coded Allergies: No Known Allergies (Verified , 03/25/18) TONY HOPPER MD Aug 08, 2021 15:42
== END 2021-08-08 13:40 | disposition home health service (06) | DRG 74 ==
LOC: M PM&R 15:05
PROVIDERS: ADMIT Physical Medicine & Rehabilitation; ATTEND Physical Medicine & Rehabilitation
DX: E11.42 Type 2 diabetes mellitus with diabetic polyneuropathy (principal); I13.0 Hypertensive heart and chronic kidney disease with heart failure and stage 1 through stage 4 chronic kidney disease, or unspecified chronic kidney disease; I50.32 Chronic diastolic (congestive) heart failure; G47.33 Obstructive sleep apnea (adult) (pediatric); E78.5 Hyperlipidemia, unspecified; E11.22 Type 2 diabetes mellitus with diabetic chronic kidney disease; N18.9 Chronic kidney disease, unspecified; Z98.62 Peripheral vascular angioplasty status; E11.51 Type 2 diabetes mellitus with diabetic peripheral angiopathy without gangrene; Z74.09 Other reduced mobility; Z74.1 Need for assistance with personal care; H91.93 Unspecified hearing loss, bilateral; R53.1 Weakness; Z87.891 Personal history of nicotine dependence; Z79.82 Long term (current) use of aspirin; Z79.02 Long term (current) use of antithrombotics/antiplatelets; Z79.899 Other long term (current) drug therapy

== ENCOUNTER → 2021-08-10 | Outpatient (CLI) | payer MEDICARE, OTHER ==
[~2021-08-10] MED LIST changes: +DICL1PAT6 TOP; +FERR1TAB8 PO; +GABA-282 PO; +SILV50CR TOP; +TRAM50TA2 PO; +[UNRECOGNIZED DRUG - CODE] TOP
--- NOTE | 2021-08-10 12:43 | REP ---
INDICATION: RT ANKLE FX. COMPARISON: 02/24/2021 TECHNIQUE: Three views FINDINGS: There is an old healed medial malleolar fracture and an old healed distal fibular fracture status quo. The bones are demineralized. There is evidence of soft tissue swelling, however, I do not know the patient's body habitus. There are plantar and retrocalcaneal heel spurs status quo. There is no evidence of a definite acute osseous abnormality. IMPRESSION: Stable appearing chronic changes. <Electronically signed by Yahir Peres > 08/10/21 [id number]
== END ==
LOC: M SOG 11:02
PROVIDERS: ATTEND Orthopaedic Surgery
DX: S82.64XA Nondisplaced fracture of lateral malleolus of right fibula, initial encounter for closed fracture (principal); X58.XXXA Exposure to other specified factors, initial encounter; Y92.89 Other specified places as the place of occurrence of the external cause; Y93.9 Activity, unspecified; Y99.9 Unspecified external cause status

== ENCOUNTER → 2021-08-22 | Outpatient (REF) | payer MEDICARE, OTHER | LOC: M SFHCPLAZ 10:44 | PROVIDERS: ATTEND Student in an Organized Health Care Education/Training Program | DX: R60.0 Localized edema (principal) ==

== ENCOUNTER → 2021-08-22 | Outpatient (CLI) | payer MEDICARE, OTHER ==
[~2021-08-22] MED LIST changes: -LISI-898 PO; +LISI5TAB11 PO; +POTA-151 PO; -POTA20TA6 PO
[2021-08-22 13:40] LABS: CALCIUM LEVEL 9.3 MG/DL (8.8-10.2); CREATININE FOR GFR 1.41 MG/DL (0.70-1.30); GLOMERULAR FILTRATION RATE 51.2 (>35); POTASSIUM SERUM 4.6 MEQ/L (3.5-5.1)
== END ==
LOC: M PLALAB 11:23
PROVIDERS: ATTEND Student in an Organized Health Care Education/Training Program
DX: R60.0 Localized edema (principal)

== ENCOUNTER → 2021-09-24 | Outpatient (REF) | payer MEDICARE, OTHER ==
[2021-09-25 11:30] LABS: APPEARANCE, URINE CLOUDY (CLEAR); BACTERIA, URINE AUTO NEGATIVE (NEGATIVE); BILIRUBIN, URINE AUTO NEGATIVE (NEGATIVE); BLOOD, URINE BLOOD NEGATIVE (NEGATIVE); COLOR, URINE YELLOW (YELLOW); GLUCOSE, URINE (UA) AUTO NEGATIVE (NEGATIVE); KETONE, URINE AUTO NEGATIVE (NEGATIVE); LEUKOCYTE ESTERASE, URINE AUTO NEGATIVE (NEGATIVE); MUCUS, URINE SMALL (NEGATIVE); NITRITE, URINE AUTO NEGATIVE (NEGATIVE); PROTEIN, URINE AUTO 2+ mg/dL (NEGATIVE); RBC, URINE AUTO 0 /HPF (0-3); SPECIFIC GRAVITY URINE AUTO 1.019 (1.002-1.035); SQUAMOUS EPITHELIAL CELL UR AU 0 /HPF (0-6); UROBILINOGEN, URINE AUTO 0.2 mg/dL (0.0-2.0); WBC, URINE AUTO 0 /HPF (0-3)
== END ==
LOC: M SFHCPLAZ 10:26
PROVIDERS: ATTEND Student in an Organized Health Care Education/Training Program
DX: R30.0 Dysuria (principal); E11.29 Type 2 diabetes mellitus with other diabetic kidney complication
CPT/HCPCS: 81001; 87086; G0463

== ENCOUNTER → 2021-09-25 | Outpatient (CLI) | payer MEDICARE, OTHER ==
[~2021-09-25] MED LIST changes: +LISI-898 PO; -LISI5TAB11 PO; -POTA-151 PO; +POTA20TA6 PO
[2021-09-25 13:36] LABS: BLOOD UREA NITROGEN 13 MG/DL (7-18); CALCIUM LEVEL 9.6 MG/DL (8.8-10.2); CARBON DIOXIDE LEVEL 27 MEQ/L (21-32); CHLORIDE LEVEL 110 MEQ/L (98-107); CREATININE FOR GFR 0.88 MG/DL (0.70-1.30); GLOMERULAR FILTRATION RATE > 60.0 (>35); GLUCOSE, FASTING 108 MG/DL (70-100); POTASSIUM SERUM 4.2 MEQ/L (3.5-5.1); SODIUM LEVEL 143 MEQ/L (136-145)
[2021-09-25 13:37] LABS: VITAMIN B12 LEVEL 537 PG/ML (247-911)
[2021-09-25 13:39] LABS: HEMOGLOBIN A1c 5.4 %
[2021-09-25 14:12] LABS: MAU/CREAT RATIO 269.1 MCG/MG (0.0-30.0)
== END ==
LOC: M PLALAB 11:22
PROVIDERS: ATTEND Student in an Organized Health Care Education/Training Program
DX: G62.9 Polyneuropathy, unspecified (principal); R19.7 Diarrhea, unspecified

== ENCOUNTER → 2021-11-28 | Outpatient (REF) | payer MEDICARE, OTHER ==
[~2021-11-28] MED LIST changes: -LISI-898 PO; +LISI5TAB11 PO; +POTA-151 PO; -POTA20TA6 PO
== END ==
LOC: M SFHCPLAZ 12:13
PROVIDERS: ATTEND Family Medicine
DX: Z53.9 Procedure and treatment not carried out, unspecified reason (principal); E11.42 Type 2 diabetes mellitus with diabetic polyneuropathy

== ENCOUNTER → 2021-11-28 | Outpatient (CLI) | payer MEDICARE, OTHER | LOC: M PLALAB 12:48 | PROVIDERS: ATTEND Student in an Organized Health Care Education/Training Program | DX: E11.42 Type 2 diabetes mellitus with diabetic polyneuropathy (principal) ==

== ENCOUNTER 2022-02-03 14:42 | Inpatient (IN) | payer MEDICARE, OTHER ==
[~2022-02-03] VITALS: Ht 172.7 cm; Wt 113.0 kg
[2022-02-03] MEDS ORDERED: POTA-151 PO (15:14)
[2022-02-03 17:16] LABS: BASO # 0.1 10^3/uL (0.0-0.2); BASO % 0.7 % (0.0-1.0); EOS # 0.3 10^3/uL (0.0-0.5); EOS % 3.6 % (0.0-3.0); HEMATOCRIT 35.7 % (42.0-52.0); HEMOGLOBIN 11.6 g/dl (13.5-17.5); LYMPH # 1.2 10^3/uL (1.5-5.0); MEAN CORPUSCULAR HEMOGLOBIN 31.1 pg (27.0-33.0); MEAN CORPUSCULAR HGB CONC 32.5 g/dl (32.0-36.5); MEAN CORPUSCULAR VOLUME 95.7 fl (80.0-96.0); MONO # 0.9 10^3/uL (0.0-0.8); MONO % 10.5 % (2.0-8.0); NEUTROPHILS # 6.4 10^3/uL (1.5-8.5); NEUTROPHILS % 71.7 % (36.0-66.0); PLATELET COUNT, AUTOMATED 240 10^3/uL (150-450); RED BLOOD COUNT 3.73 10^6/uL (4.30-6.10); WHITE BLOOD COUNT 8.9 10^3/uL (4.0-10.0)
[2022-02-03 17:41] LABS: C REACTIVE PROTEIN QUANTITATIV 3.2 MG/DL (0.00-0.30); CALCIUM LEVEL 9.4 MG/DL (8.8-10.2); CREATININE FOR GFR 1.56 MG/DL (0.70-1.30); GLOMERULAR FILTRATION RATE 45.6 (>35); POTASSIUM SERUM 4.9 MEQ/L (3.5-5.1)
[2022-02-03 17:44] LABS: ERYTHROCYTE SEDIMENTATION RATE 63 mm/hr (0-20)
[2022-02-03] MEDS ORDERED: HOME MED LIST COMPLETE! XX SCH (20:10)
[2022-02-03] MEDS ORDERED: med rec comment (20:10)
[2022-02-03] MEDS: LATANOPROST 0.005% OPHTH SOLN 2.5 ML OU SCH (21:00)
[2022-02-03] MEDS ORDERED: IPRATROPIUM 0.5MG/ALBUTEROL 2.5MG INH SOL UD 3ML (DUONEB) NEB PRN (21:25)
[2022-02-03] MEDS ORDERED: NS 500 ML IV ONE (21:25)
[2022-02-03] MEDS ORDERED: ALBUTEROL 90 MCG/ACT 8GM HFA INHALER INH PRN (21:25)
[2022-02-03] MEDS: CLINDAMYCIN 600 MG in IV 1 EA IV SCH (22:29)
[2022-02-03] MEDS ORDERED: hydrALAZINE 20MG/ML 1ML VIAL (J0360 PER 20MG) IV ONE (23:00)
[2022-02-03 23:20] VITALS: BP 172/78
[2022-02-03] MEDS: DOCUSATE SODIUM 100MG CAPSULE PO SCH (23:56)
[2022-02-03] MEDS: MORPHINE 2 MG/ML 1ML VIAL IV PRN (23:57)
[2022-02-04] MEDS: PERCOCET 5MG/325MG TAB PO PRN ×3 (01:20→21:24)
[2022-02-04 01:50] VITALS: BP 148/62
[2022-02-04] MEDS ORDERED: **hydrALAZINE** 10 MG TAB PO PRN (05:00)
[2022-02-04] MEDS: HEPARIN SOD (PORCINE) 5000UNITS/ML 1ML VIAL/SYRINGE SQ SCH ×3 (05:43→21:16)
[2022-02-04] MEDS: CLINDAMYCIN 600 MG in IV 1 EA IV SCH ×2 (05:43→14:14)
[2022-02-04] MEDS: MORPHINE 2 MG/ML 1ML VIAL IV PRN (05:44)
[2022-02-04 06:38] LABS: BASO # 0.1 10^3/uL (0.0-0.2); EOS # 0.4 10^3/uL (0.0-0.5); EOS % 4.5 % (0.0-3.0); HEMATOCRIT 34.3 % (42.0-52.0); LYMPH # 1.4 10^3/uL (1.5-5.0); LYMPH % 17.7 % (24.0-44.0); MEAN CORPUSCULAR HEMOGLOBIN 30.6 pg (27.0-33.0); MEAN CORPUSCULAR HGB CONC 32.1 g/dl (32.0-36.5); MEAN CORPUSCULAR VOLUME 95.3 fl (80.0-96.0); MONO # 0.9 10^3/uL (0.0-0.8); MONO % 11.5 % (2.0-8.0); NEUTROPHILS # 5.3 10^3/uL (1.5-8.5); NEUTROPHILS % 64.9 % (36.0-66.0); PLATELET COUNT, AUTOMATED 218 10^3/uL (150-450); WHITE BLOOD COUNT 8.1 10^3/uL (4.0-10.0)
[2022-02-04 07:04] LABS: BLOOD UREA NITROGEN 25 MG/DL (7-18); C REACTIVE PROTEIN QUANTITATIV 2.81 MG/DL (0.00-0.30); CARBON DIOXIDE LEVEL 28 MEQ/L (21-32); CHLORIDE LEVEL 112 MEQ/L (98-107); CREATININE FOR GFR 0.96 MG/DL (0.70-1.30); GLOMERULAR FILTRATION RATE > 60.0 (>35); GLUCOSE, FASTING 95 MG/DL (70-100); POTASSIUM SERUM 4.2 MEQ/L (3.5-5.1); SODIUM LEVEL 145 MEQ/L (136-145)
[2022-02-04 07:05] LABS: ERYTHROCYTE SEDIMENTATION RATE 53 mm/hr (0-20)
[2022-02-04] MEDS: atenoloL 25 MG TAB PO SCH (09:52)
[2022-02-04] MEDS: DOCUSATE SODIUM 100MG CAPSULE PO SCH ×2 (09:52→21:16)
[2022-02-04] MEDS: LACTOBACILLUS ACIDOPHILUS CAP (BACID) PO SCH (09:52)
[2022-02-04] MEDS: PRAVASTATIN 20 MG TAB PO SCH (09:53)
[2022-02-04] MEDS: ASPIRIN 81MG ENTERIC TABLET PO SCH (09:53)
[2022-02-04] MEDS: CLOPIDOGREL 75 MG TAB PO SCH (09:53)
[2022-02-04] MEDS: ACETAMINOPHEN TAB 650MG DOSE (2X325MG) PO PRN (10:04)
[2022-02-04 14:00] VITALS: BP 123/48
[2022-02-04 18:00] VITALS: BP 126/90
[2022-02-04] MEDS: LATANOPROST 0.005% OPHTH SOLN 2.5 ML OU SCH (21:16)
[2022-02-05] MEDS: MORPHINE 2 MG/ML 1ML VIAL IV PRN (02:22)
[2022-02-05] MEDS: HEPARIN SOD (PORCINE) 5000UNITS/ML 1ML VIAL/SYRINGE SQ SCH ×3 (05:27→20:53)
[2022-02-05] MEDS: PERCOCET 5MG/325MG TAB PO PRN ×2 (05:31→11:37)
[2022-02-05 06:00] VITALS: BP 154/69
[2022-02-05 06:25] LABS: BASO # 0.1 10^3/uL (0.0-0.2); EOS # 0.4 10^3/uL (0.0-0.5); EOS % 7.2 % (0.0-3.0); HEMATOCRIT 32.4 % (42.0-52.0); HEMOGLOBIN 10.5 g/dl (13.5-17.5); LYMPH # 1.4 10^3/uL (1.5-5.0); LYMPH % 23.4 % (24.0-44.0); MEAN CORPUSCULAR HEMOGLOBIN 30.7 pg (27.0-33.0); MEAN CORPUSCULAR HGB CONC 32.4 g/dl (32.0-36.5); MEAN CORPUSCULAR VOLUME 94.7 fl (80.0-96.0); MONO # 0.8 10^3/uL (0.0-0.8); MONO % 12.6 % (2.0-8.0); NEUTROPHILS # 3.4 10^3/uL (1.5-8.5); NEUTROPHILS % 55.1 % (36.0-66.0); PLATELET COUNT, AUTOMATED 218 10^3/uL (150-450); RED BLOOD COUNT 3.42 10^6/uL (4.30-6.10); WHITE BLOOD COUNT 6.1 10^3/uL (4.0-10.0)
[2022-02-05 06:50] LABS: BLOOD UREA NITROGEN 23 MG/DL (7-18); CALCIUM LEVEL 9.3 MG/DL (8.8-10.2); CARBON DIOXIDE LEVEL 28 MEQ/L (21-32); CHLORIDE LEVEL 111 MEQ/L (98-107); CREATININE FOR GFR 0.92 MG/DL (0.70-1.30); GLOMERULAR FILTRATION RATE > 60.0 (>35); GLUCOSE, FASTING 100 MG/DL (70-100); POTASSIUM SERUM 4.6 MEQ/L (3.5-5.1); SODIUM LEVEL 142 MEQ/L (136-145)
[2022-02-05] MEDS: DOCUSATE SODIUM 100MG CAPSULE PO SCH ×2 (09:18→20:50)
[2022-02-05] MEDS: PRAVASTATIN 20 MG TAB PO SCH (09:18)
[2022-02-05] MEDS: LACTOBACILLUS ACIDOPHILUS CAP (BACID) PO SCH (09:18)
[2022-02-05] MEDS: TORSEMIDE 10 MG TABLET PO SCH (09:19)
[2022-02-05] MEDS: ASPIRIN 81MG ENTERIC TABLET PO SCH (09:19)
[2022-02-05] MEDS: atenoloL 25 MG TAB PO SCH (09:22)
[2022-02-05] MEDS: CLOPIDOGREL 75 MG TAB PO SCH (09:22)
[2022-02-05] MEDS: ACETAMINOPHEN TAB 650MG DOSE (2X325MG) PO PRN ×2 (09:31→16:08)
[2022-02-05 14:00] VITALS: BP 103/40
[2022-02-05 14:15] VITALS: BP 105/50
[2022-02-05 18:00] VITALS: BP 104/46
[2022-02-05 20:42] VITALS: BP 109/48
[2022-02-05] MEDS: LATANOPROST 0.005% OPHTH SOLN 2.5 ML OU SCH (20:50)
[2022-02-06 05:17] VITALS: BP 112/52
[2022-02-06] MEDS: HEPARIN SOD (PORCINE) 5000UNITS/ML 1ML VIAL/SYRINGE SQ SCH ×3 (05:38→20:50)
[2022-02-06 06:28] LABS: BASO # 0.1 10^3/uL (0.0-0.2); EOS # 0.5 10^3/uL (0.0-0.5); EOS % 7.3 % (0.0-3.0); HEMATOCRIT 34.3 % (42.0-52.0); HEMOGLOBIN 11.1 g/dl (13.5-17.5); LYMPH # 1.1 10^3/uL (1.5-5.0); LYMPH % 15.2 % (24.0-44.0); MEAN CORPUSCULAR HEMOGLOBIN 30.6 pg (27.0-33.0); MEAN CORPUSCULAR HGB CONC 32.4 g/dl (32.0-36.5); MEAN CORPUSCULAR VOLUME 94.5 fl (80.0-96.0); MONO # 0.7 10^3/uL (0.0-0.8); MONO % 10.2 % (2.0-8.0); NEUTROPHILS # 4.6 10^3/uL (1.5-8.5); NEUTROPHILS % 65.6 % (36.0-66.0); PLATELET COUNT, AUTOMATED 238 10^3/uL (150-450); RED BLOOD COUNT 3.63 10^6/uL (4.30-6.10)
[2022-02-06 06:48] LABS: BLOOD UREA NITROGEN 25 MG/DL (7-18); CALCIUM LEVEL 9.9 MG/DL (8.8-10.2); CARBON DIOXIDE LEVEL 29 MEQ/L (21-32); CHLORIDE LEVEL 110 MEQ/L (98-107); CREATININE FOR GFR 0.92 MG/DL (0.70-1.30); GLOMERULAR FILTRATION RATE > 60.0 (>35); GLUCOSE, FASTING 105 MG/DL (70-100); POTASSIUM SERUM 4.4 MEQ/L (3.5-5.1); SODIUM LEVEL 143 MEQ/L (136-145)
[2022-02-06] MEDS: TORSEMIDE 10 MG TABLET PO SCH (09:37)
[2022-02-06] MEDS: CLOPIDOGREL 75 MG TAB PO SCH (09:37)
[2022-02-06 09:40] VITALS: BP 165/64
[2022-02-06] MEDS: atenoloL 25 MG TAB PO SCH (09:40)
[2022-02-06] MEDS: ASPIRIN 81MG ENTERIC TABLET PO SCH (09:41)
[2022-02-06] MEDS: LACTOBACILLUS ACIDOPHILUS CAP (BACID) PO SCH (09:41)
[2022-02-06] MEDS: DOCUSATE SODIUM 100MG CAPSULE PO SCH ×2 (09:41→20:49)
[2022-02-06] MEDS: PRAVASTATIN 20 MG TAB PO SCH (09:41)
[2022-02-06] MEDS: ACETAMINOPHEN TAB 650MG DOSE (2X325MG) PO PRN (09:42)
[2022-02-06 14:00] VITALS: BP 120/42
[2022-02-06 20:09] VITALS: BP 123/53
[2022-02-06] MEDS: LATANOPROST 0.005% OPHTH SOLN 2.5 ML OU SCH (20:50)
[2022-02-07 05:42] VITALS: BP 104/52
[2022-02-07] MEDS: HEPARIN SOD (PORCINE) 5000UNITS/ML 1ML VIAL/SYRINGE SQ SCH ×3 (06:15→20:30)
[2022-02-07] MEDS: ACETAMINOPHEN TAB 650MG DOSE (2X325MG) PO PRN (07:00)
[2022-02-07] MEDS: DOCUSATE SODIUM 100MG CAPSULE PO SCH ×2 (09:54→20:30)
[2022-02-07] MEDS: CLOPIDOGREL 75 MG TAB PO SCH (09:54)
[2022-02-07] MEDS: PRAVASTATIN 20 MG TAB PO SCH (09:54)
[2022-02-07] MEDS: LACTOBACILLUS ACIDOPHILUS CAP (BACID) PO SCH (09:54)
[2022-02-07] MEDS: atenoloL 25 MG TAB PO SCH (09:55)
[2022-02-07] MEDS: ASPIRIN 81MG ENTERIC TABLET PO SCH (09:56)
[2022-02-07] MEDS: TORSEMIDE 10 MG TABLET PO SCH (09:56)
[2022-02-07] MEDS: PERCOCET 5MG/325MG TAB PO PRN (09:56)
[2022-02-07 10:00] VITALS: BP 101/50
[2022-02-07 16:14] VITALS: BP 106/50
[2022-02-07] MEDS ORDERED: DIMETHICONE 2% OINTMENT(VANICREAM) 70GM TUBE TOP PRN (17:00)
[2022-02-07] MEDS: LATANOPROST 0.005% OPHTH SOLN 2.5 ML OU SCH (20:30)
[2022-02-08] MEDS: HEPARIN SOD (PORCINE) 5000UNITS/ML 1ML VIAL/SYRINGE SQ SCH ×2 (05:23→14:00)
[2022-02-08 06:00] VITALS: BP 167/68
[2022-02-08 09:30] VITALS: BP 130/60
[2022-02-08] MEDS: ASPIRIN 81MG ENTERIC TABLET PO SCH (09:30)
[2022-02-08] MEDS: CLOPIDOGREL 75 MG TAB PO SCH (09:30)
[2022-02-08] MEDS: TORSEMIDE 10 MG TABLET PO SCH (09:30)
[2022-02-08] MEDS: LACTOBACILLUS ACIDOPHILUS CAP (BACID) PO SCH (09:30)
[2022-02-08] MEDS: atenoloL 25 MG TAB PO SCH (09:30)
[2022-02-08] MEDS: PRAVASTATIN 20 MG TAB PO SCH (09:30)
[2022-02-08] MEDS: DOCUSATE SODIUM 100MG CAPSULE PO SCH (09:30)
[2022-02-08] MEDS: PERCOCET 5MG/325MG TAB PO PRN (09:31)
== END 2022-02-08 17:58 | disposition home health service (06) | DRG 593 ==
LOC: M ED 14:42 → M ED INP 21:17 → ENRESERV 22:23 → M MSPAV 23:20
PROVIDERS: ADMIT Internal Medicine; ATTEND Internal Medicine
DX: L97.928 Non-pressure chronic ulcer of unspecified part of left lower leg with other specified severity (principal); L03.116 Cellulitis of left lower limb; I13.0 Hypertensive heart and chronic kidney disease with heart failure and stage 1 through stage 4 chronic kidney disease, or unspecified chronic kidney disease; I50.32 Chronic diastolic (congestive) heart failure; N17.9 Acute kidney failure, unspecified; H91.90 Unspecified hearing loss, unspecified ear; Z68.37 Body mass index [BMI] 37.0-37.9, adult; I87.2 Venous insufficiency (chronic) (peripheral); E66.9 Obesity, unspecified; I45.10 Unspecified right bundle-branch block; N18.2 Chronic kidney disease, stage 2 (mild); R00.1 Bradycardia, unspecified; G47.33 Obstructive sleep apnea (adult) (pediatric); I73.9 Peripheral vascular disease, unspecified; K59.00 Constipation, unspecified; Z79.899 Other long term (current) drug therapy; Z79.82 Long term (current) use of aspirin; L97.918 Non-pressure chronic ulcer of unspecified part of right lower leg with other specified severity

== ENCOUNTER → 2022-03-19 | Outpatient (POV) | payer MEDICARE, OTHER ==
[~2022-03-19] VITALS: Ht 172.7 cm; Wt 110.0 kg
[~2022-03-19] MED LIST changes: +med rec comment
[2022-03-19 14:55] VITALS: BP 145/65
== END ==
LOC: M IRPOV 14:28
PROVIDERS: ATTEND Radiology Diagnostic Radiology
DX: L97.919 Non-pressure chronic ulcer of unspecified part of right lower leg with unspecified severity (principal); M79.604 Pain in right leg

== ENCOUNTER → 2022-04-02 | Outpatient (CLI) | payer MEDICARE, OTHER | LOC: M RAD 11:41 | PROVIDERS: ATTEND Radiology Diagnostic Radiology | DX: I83.893 Varicose veins of bilateral lower extremities with other complications (principal) ==

== ENCOUNTER 2022-04-10 15:07 | Emergency (ER) | payer MEDICARE, OTHER ==
[~2022-04-10] VITALS: Ht 172.7 cm; Wt 111.4 kg
[2022-04-10 15:08] VITALS: BP 168/82
[2022-04-10] MEDS ORDERED: ceFAZolin SOD 2 GM in IV 1 EA IV ONE (17:00)
[2022-04-10 17:59] LABS: BASO # 0.1 10^3/uL (0.0-0.2); BASO % 0.8 % (0.0-1.0); EOS # 0.4 10^3/uL (0.0-0.5); EOS % 4.4 % (0.0-3.0); HEMATOCRIT 36.9 % (42.0-52.0); HEMOGLOBIN 11.9 g/dl (13.5-17.5); LYMPH # 1.1 10^3/uL (1.5-5.0); LYMPH % 14.1 % (24.0-44.0); MEAN CORPUSCULAR HEMOGLOBIN 30.4 pg (27.0-33.0); MEAN CORPUSCULAR HGB CONC 32.2 g/dl (32.0-36.5); MEAN CORPUSCULAR VOLUME 94.4 fl (80.0-96.0); MONO # 0.7 10^3/uL (0.0-0.8); MONO % 8.8 % (2.0-8.0); NEUTROPHILS # 5.7 10^3/uL (1.5-8.5); NEUTROPHILS % 71.4 % (36.0-66.0); PLATELET COUNT, AUTOMATED 260 10^3/uL (150-450); RED BLOOD COUNT 3.91 10^6/uL (4.30-6.10); WHITE BLOOD COUNT 7.9 10^3/uL (4.0-10.0)
[2022-04-10 18:20] LABS: ERYTHROCYTE SEDIMENTATION RATE 75 mm/hr (0-20)
[2022-04-10 18:28] LABS: BLOOD UREA NITROGEN 14 MG/DL (7-18); C REACTIVE PROTEIN QUANTITATIV 7.43 MG/DL (0.00-0.30); CALCIUM LEVEL 9.4 MG/DL (8.8-10.2); CARBON DIOXIDE LEVEL 28 MEQ/L (21-32); CHLORIDE LEVEL 109 MEQ/L (98-107); GLOMERULAR FILTRATION RATE > 60.0 (>35); GLUCOSE, FASTING 99 MG/DL (70-100); POTASSIUM SERUM 4.4 MEQ/L (3.5-5.1); SODIUM LEVEL 142 MEQ/L (136-145)
[2022-04-10] MEDS ORDERED: CEPH500C PO (18:55)
== END 2022-04-10 19:11 | disposition home or self-care (01) ==
LOC: M ED 15:07
DX: L03.115 Cellulitis of right lower limb (principal); R60.9 Edema, unspecified; M62.81 Muscle weakness (generalized); H91.3 Deaf nonspeaking, not elsewhere classified; Z79.51 Long term (current) use of inhaled steroids; Z79.899 Other long term (current) drug therapy
CPT/HCPCS: 80048; 85025; 85652; 86140; 96365; 99283; J0690

== ENCOUNTER → 2022-04-21 | Outpatient (CLI) | payer MEDICARE, OTHER ==
[~2022-04-21] MED LIST changes: +CEPH500C PO
== END ==
LOC: M LABSMTC 11:14
PROVIDERS: ATTEND Anesthesiology
DX: Z20.828 Contact with and (suspected) exposure to other viral communicable diseases (principal); Z11.59 Encounter for screening for other viral diseases

== ENCOUNTER → 2022-05-15 | Outpatient (CLI) | payer MEDICARE, OTHER ==
[~2022-05-15] MED LIST changes: +COLA100C5 PO; +NYST-13 EXT; -NYST10CR EXT; +PROB1CAP10 PO; +PROTPAK PO
== END ==
LOC: M LABSMTC 11:37
PROVIDERS: ATTEND Anesthesiology
DX: Z20.828 Contact with and (suspected) exposure to other viral communicable diseases (principal); Z11.59 Encounter for screening for other viral diseases

== ENCOUNTER → 2022-05-27 | Outpatient (CLI) | payer MEDICARE, OTHER ==
[2022-05-27 13:10] LABS: BASO # 0.1 10^3/uL (0.0-0.2); BASO % 1.2 % (0.0-1.0); EOS # 0.4 10^3/uL (0.0-0.5); EOS % 6.4 % (0.0-3.0); HEMATOCRIT 42.3 % (42.0-52.0); LYMPH # 1.3 10^3/uL (1.5-5.0); LYMPH % 19.4 % (24.0-44.0); MEAN CORPUSCULAR HEMOGLOBIN 29.2 pg (27.0-33.0); MEAN CORPUSCULAR HGB CONC 30.7 g/dl (32.0-36.5); MEAN CORPUSCULAR VOLUME 95.1 fl (80.0-96.0); MONO # 0.7 10^3/uL (0.0-0.8); MONO % 10.3 % (2.0-8.0); NEUTROPHILS # 4.2 10^3/uL (1.5-8.5); NEUTROPHILS % 62.3 % (36.0-66.0); PLATELET COUNT, AUTOMATED 257 10^3/uL (150-450); RED BLOOD COUNT 4.45 10^6/uL (4.30-6.10); WHITE BLOOD COUNT 6.7 10^3/uL (4.0-10.0)
== END ==
LOC: M PLALAB 10:45
PROVIDERS: ATTEND Student in an Organized Health Care Education/Training Program
DX: K92.1 Melena (principal)

== ENCOUNTER → 2022-05-27 | Outpatient (CLI) | payer MEDICARE, OTHER | LOC: M RAD 09:40 | PROVIDERS: ATTEND Radiology Diagnostic Radiology | DX: I83.209 Varicose veins of unspecified lower extremity with both ulcer of unspecified site and inflammation (principal); I82.811 Embolism and thrombosis of superficial veins of right lower extremity ==

== ENCOUNTER → 2022-07-14 | Outpatient (CLI) | payer MEDICARE, OTHER ==
[~2022-07-14] MED LIST changes: +ASPI-226 PO
== END ==
LOC: M LABSMTC 11:25
PROVIDERS: ATTEND Anesthesiology
DX: Z01.812 Encounter for preprocedural laboratory examination (principal); Z20.822 Contact with and (suspected) exposure to COVID-19

== ENCOUNTER 2022-07-18 12:59 | Day surgery (SDC) | payer MEDICARE, OTHER ==
[~2022-07-18] VITALS: Ht 172.7 cm; Wt 94.3 kg
[~2022-07-18 12:59] MED LIST changes: +LIDOCAINE 2% 100MG/5ML SDV (FOR ANES.) As Ordered ONE; +NS 1,000 ML IV ONE; +propofoL 200 MG/20 ML VIAL As Ordered ONE
[2022-07-18] MEDS ORDERED: fentaNYL 100 MCG/2 ML INJECTION As Ordered ONE (14:14)
[2022-07-18 15:10] VITALS: BP 148/67
== END 2022-07-18 15:51 | disposition home or self-care (01) ==
LOC: M OPP 12:59
PROVIDERS: ATTEND Surgery
DX: K63.5 Polyp of colon (principal); K57.30 Diverticulosis of large intestine without perforation or abscess without bleeding; K92.2 Gastrointestinal hemorrhage, unspecified; Z79.02 Long term (current) use of antithrombotics/antiplatelets; Z79.82 Long term (current) use of aspirin; Z79.899 Other long term (current) drug therapy; Z79.51 Long term (current) use of inhaled steroids; Z99.89 Dependence on other enabling machines and devices; G47.33 Obstructive sleep apnea (adult) (pediatric); G43.909 Migraine, unspecified, not intractable, without status migrainosus; I50.9 Heart failure, unspecified; J44.9 Chronic obstructive pulmonary disease, unspecified; N40.0 Benign prostatic hyperplasia without lower urinary tract symptoms; Z87.891 Personal history of nicotine dependence
CPT/HCPCS: 43235; 45385; 88305; J3010

== ENCOUNTER → 2022-08-14 | Outpatient (REF) | payer MEDICARE, OTHER ==
[~2022-08-14] MED LIST changes: +CLOP75TA99 PO; -LIDOCAINE 2% 100MG/5ML SDV (FOR ANES.) As Ordered ONE; -NS 1,000 ML IV ONE; -PLAV1TAB2 PO; -propofoL 200 MG/20 ML VIAL As Ordered ONE
[2022-08-14 14:45] LABS: BLOOD UREA NITROGEN 18 MG/DL (7-18); CALCIUM LEVEL 9.1 MG/DL (8.8-10.2); CARBON DIOXIDE LEVEL 29 MEQ/L (21-32); CHLORIDE LEVEL 111 MEQ/L (98-107); CREATININE FOR GFR 1.12 MG/DL (0.70-1.30); GLOMERULAR FILTRATION RATE > 60.0 (>35); GLUCOSE, FASTING 106 MG/DL (70-100); POTASSIUM SERUM 4.5 MEQ/L (3.5-5.1); SODIUM LEVEL 144 MEQ/L (136-145)
[2022-08-14 14:46] LABS: ALBUMIN 3.6 GM/DL (3.2-5.2); ALT/SGPT 26 U/L (12-78); BILIRUBIN,TOTAL 0.8 MG/DL (0.2-1.0); CHOLESTEROL LEVEL 174 MG/DL (<200); CHOLESTEROL RISK RATIO 3.222 (<5); HDL CHOLESTEROL 54 MG/DL (>40); LDL CHOLESTEROL 92 MG/DL (<100); NON-HDL-C 120 MG/DL; TOTAL PROTEIN 7.5 GM/DL (6.4-8.2); TRIGLYCERIDES LEVEL 139 MG/DL (<150)
[2022-08-14 15:33] LABS: MAU/CREAT RATIO 320.7 MCG/MG (0.0-30.0)
[2022-08-14 15:57] LABS: HEMOGLOBIN A1c 6.2 %
== END ==
LOC: M PLALAB 13:23
PROVIDERS: ATTEND Student in an Organized Health Care Education/Training Program
DX: E78.00 Pure hypercholesterolemia, unspecified (principal); E11.9 Type 2 diabetes mellitus without complications

== ENCOUNTER 2022-11-22 14:37 | Emergency (ER) | payer MEDICARE, OTHER ==
[~2022-11-22] VITALS: Ht 165.1 cm; Wt 110.7 kg
[2022-11-22 14:42] VITALS: BP 174/75
[2022-11-22 16:41] LABS: BASO # 0.1 10^3/uL (0.0-0.2); BASO % 0.8 % (0.0-1.0); EOS # 0.3 10^3/uL (0.0-0.5); EOS % 3.3 % (0.0-3.0); HEMOGLOBIN 12.9 g/dl (13.5-17.5); LYMPH # 1.2 10^3/uL (1.5-5.0); MEAN CORPUSCULAR HEMOGLOBIN 29.8 pg (27.0-33.0); MEAN CORPUSCULAR HGB CONC 32.3 g/dl (32.0-36.5); MEAN CORPUSCULAR VOLUME 92.4 fl (80.0-96.0); MONO # 0.8 10^3/uL (0.0-0.8); MONO % 9.8 % (2.0-8.0); NEUTROPHILS # 5.9 10^3/uL (1.5-8.5); NEUTROPHILS % 71.5 % (36.0-66.0); PLATELET COUNT, AUTOMATED 308 10^3/uL (150-450); RED BLOOD COUNT 4.33 10^6/uL (4.30-6.10); WHITE BLOOD COUNT 8.3 10^3/uL (4.0-10.0)
[2022-11-22 16:55] LABS: C REACTIVE PROTEIN QUANTITATIV 3.1 MG/DL (<1.0)
[2022-11-22 17:19] LABS: ERYTHROCYTE SEDIMENTATION RATE 83 mm/hr (0-20)
[2022-11-22 18:36] LABS: ALBUMIN 3.8 G/DL (3.2-5.2); BILIRUBIN,DIRECT 0.3 MG/DL (<0.4); TOTAL PROTEIN 7.8 G/DL (5.7-8.2)
[2022-11-22 20:47] LABS: INR 1.07; PROTHROMBIN TIME 14.1 SECONDS (12.5-14.5)
[2022-11-22 20:48] LABS: PARTIAL THROMBOPLASTIN TIME 34.7 SECONDS (24.8-34.2)
[2022-11-22] MEDS ORDERED: FUROSEMIDE 40MG/4ML VIAL IV ONE (21:15)
[2022-11-22] MEDS ORDERED: CLINDAMYCIN 900 MG in IV 1 EA IV ONE (21:15)
[2022-11-22] MEDS ORDERED: TORS20TA2 PO (21:20)
[2022-11-22] MEDS ORDERED: DOXY-443 PO (21:20)
== END 2022-11-22 22:54 | disposition home or self-care (01) ==
LOC: M ED 14:37
DX: L03.116 Cellulitis of left lower limb (principal); L03.115 Cellulitis of right lower limb; R22.43 Localized swelling, mass and lump, lower limb, bilateral; E11.9 Type 2 diabetes mellitus without complications; M54.50 Low back pain, unspecified; R51.9 Headache, unspecified; Z86.79 Personal history of other diseases of the circulatory system; Z79.52 Long term (current) use of systemic steroids; Z79.899 Other long term (current) drug therapy; Z79.82 Long term (current) use of aspirin
CPT/HCPCS: 80047; 80076; 81000; 81002; 81015; 83880; 85025; 85610; 85652; 85730; 86140; 87040; 93970; 96365; 96375; 99284; J1940

== ENCOUNTER → 2023-01-21 | Outpatient (CLI) | payer MEDICARE, OTHER ==
[~2023-01-21] MED LIST changes: +DOXY-443 PO; +TORS20TA2 PO
[2023-01-21 13:37] LABS: ALBUMIN 3.7 G/DL (3.2-5.2); ALKALINE PHOSPHATASE 133 U/L (46-116); ALT/SGPT 21 U/L (7.0-40); AST/SGOT 24 U/L (<34); BILIRUBIN,TOTAL 0.4 MG/DL (0.3-1.2); BLOOD UREA NITROGEN 18 MG/DL (9-23); CARBON DIOXIDE LEVEL 29 MMOL/L (20-31); CHLORIDE LEVEL 110 MMOL/L (98-107); CREATININE FOR GFR 1.08 MG/DL (0.70-1.30); GLOMERULAR FILTRATION RATE > 60.0 (>35); GLUCOSE, FASTING 108 MG/DL (74-106); SODIUM LEVEL 145 MMOL/L (136-145); TOTAL PROTEIN 7.4 G/DL (5.7-8.2)
[2023-01-21 13:50] LABS: HEMOGLOBIN A1c 6.1 % (4.0-6.0)
== END ==
LOC: M PLALAB 10:05
PROVIDERS: ATTEND Student in an Organized Health Care Education/Training Program
DX: E11.29 Type 2 diabetes mellitus with other diabetic kidney complication (principal)

== ENCOUNTER → 2023-02-19 | Outpatient (CLI) | payer MEDICARE, OTHER | LOC: M RAD 09:38 | PROVIDERS: ATTEND Surgery | DX: L97.821 Non-pressure chronic ulcer of other part of left lower leg limited to breakdown of skin (principal); R68.89 Other general symptoms and signs; I25.10 Atherosclerotic heart disease of native coronary artery without angina pectoris; R09.89 Other specified symptoms and signs involving the circulatory and respiratory systems ==

== ENCOUNTER → 2023-02-25 | Outpatient (POV) | payer MEDICARE, OTHER ==
[~2023-02-25] VITALS: Ht 172.7 cm; Wt 102.2 kg
[2023-02-25 10:55] VITALS: BP 140/68
== END ==
LOC: M IRPOV 10:06
PROVIDERS: ATTEND Radiology Diagnostic Radiology
DX: I70.213 Atherosclerosis of native arteries of extremities with intermittent claudication, bilateral legs (principal); R22.43 Localized swelling, mass and lump, lower limb, bilateral; L97.929 Non-pressure chronic ulcer of unspecified part of left lower leg with unspecified severity; Z79.02 Long term (current) use of antithrombotics/antiplatelets; Z79.82 Long term (current) use of aspirin; Z95.820 Peripheral vascular angioplasty status with implants and grafts

== ENCOUNTER → 2023-02-26 | Outpatient (CLI) | payer MEDICARE, OTHER ==
[2023-02-26 14:23] LABS: BASO # 0.1 10^3/uL (0.0-0.2); BASO % 1.3 % (0.0-1.0); EOS # 0.3 10^3/uL (0.0-0.5); HEMATOCRIT 36.4 % (42.0-52.0); HEMOGLOBIN 11.2 g/dl (13.5-17.5); LYMPH # 1.1 10^3/uL (1.5-5.0); LYMPH % 17.5 % (24.0-44.0); MEAN CORPUSCULAR HEMOGLOBIN 28.9 pg (27.0-33.0); MEAN CORPUSCULAR HGB CONC 30.8 g/dl (32.0-36.5); MEAN CORPUSCULAR VOLUME 93.8 fl (80.0-96.0); MONO # 0.7 10^3/uL (0.0-0.8); MONO % 10.4 % (2.0-8.0); NEUTROPHILS # 4.2 10^3/uL (1.5-8.5); NEUTROPHILS % 65.5 % (36.0-66.0); PLATELET COUNT, AUTOMATED 281 10^3/uL (150-450); RED BLOOD COUNT 3.88 10^6/uL (4.30-6.10); WHITE BLOOD COUNT 6.4 10^3/uL (4.0-10.0)
[2023-02-26 14:47] LABS: PERCENT SATURATION 11.1 % (19.7-50.0)
== END ==
LOC: M PLALAB 10:28
PROVIDERS: ATTEND Student in an Organized Health Care Education/Training Program
DX: M79.604 Pain in right leg (principal)

== ENCOUNTER → 2023-03-03 | Outpatient (CLI) | payer MEDICARE, OTHER ==
[~2023-03-03] MED LIST changes: +ISOVUE-370 76% 100ML VIAL As Ordered ONE
== END ==
LOC: M RAD 16:31
PROVIDERS: ATTEND Radiology Diagnostic Radiology
DX: I73.9 Peripheral vascular disease, unspecified (principal)
CPT/HCPCS: 75635; Q9967

== ENCOUNTER → 2023-03-13 | Outpatient (CLI) | payer MEDICARE, OTHER ==
[~2023-03-13] MED LIST changes: -ISOVUE-370 76% 100ML VIAL As Ordered ONE; +LIDOCAINE 1% MDV 20ML VIAL As Ordered ONE; +LIDOCAINE 2% MDV 20ML VIAL As Ordered ONE; +MIDAZOLAM INJ 2MG/2ML VIAL As Ordered ONE; +PERCOCET 5MG/325MG TAB As Ordered ONE; +PERCOCET 5MG/325MG TAB PO PRN; +diphenhydrAMINE 50MG/ML VIAL As Ordered ONE; +fentaNYL 100 MCG/2 ML INJECTION As Ordered ONE
[2023-03-13 15:40] VITALS: BP 132/57
== END ==
LOC: M IRPRO 10:25
PROVIDERS: ATTEND Radiology Diagnostic Radiology
DX: I87.312 Chronic venous hypertension (idiopathic) with ulcer of left lower extremity (principal); L97.929 Non-pressure chronic ulcer of unspecified part of left lower leg with unspecified severity; Z79.82 Long term (current) use of aspirin
CPT/HCPCS: 36478; 99152; 99153; J1200; J2250; J3010

== ENCOUNTER → 2023-04-08 | Outpatient (POV) | payer MEDICARE, OTHER ==
[~2023-04-08] VITALS: Ht 172.7 cm; Wt 113.1 kg
[~2023-04-08] MED LIST changes: -LIDOCAINE 1% MDV 20ML VIAL As Ordered ONE; -LIDOCAINE 2% MDV 20ML VIAL As Ordered ONE; -MIDAZOLAM INJ 2MG/2ML VIAL As Ordered ONE; -PERCOCET 5MG/325MG TAB As Ordered ONE; -PERCOCET 5MG/325MG TAB PO PRN; -diphenhydrAMINE 50MG/ML VIAL As Ordered ONE; -fentaNYL 100 MCG/2 ML INJECTION As Ordered ONE
[2023-04-08 14:35] VITALS: BP 169/77; O2SAT 97
== END ==
LOC: M IRPOV 14:22
PROVIDERS: ATTEND Radiology Diagnostic Radiology
DX: I87.2 Venous insufficiency (chronic) (peripheral) (principal); L97.929 Non-pressure chronic ulcer of unspecified part of left lower leg with unspecified severity; I73.9 Peripheral vascular disease, unspecified; M79.89 Other specified soft tissue disorders; H54.7 Unspecified visual loss; H91.90 Unspecified hearing loss, unspecified ear; N28.89 Other specified disorders of kidney and ureter

== ENCOUNTER → 2023-04-08 | Outpatient (CLI) | payer MEDICARE, OTHER | LOC: M RAD 15:23 | PROVIDERS: ATTEND Radiology Diagnostic Radiology | DX: I73.9 Peripheral vascular disease, unspecified (principal); M79.89 Other specified soft tissue disorders ==

== ENCOUNTER 2023-05-02 18:14 | Inpatient (IN) | payer MEDICARE, OTHER ==
[~2023-05-02] VITALS: Ht 160 cm; Wt 107.2 kg
[2023-05-02 20:40] LABS: BASO # 0.1 10^3/uL (0.0-0.2); BASO % 1.2 % (0.0-1.0); EOS # 0.2 10^3/uL (0.0-0.5); EOS % 2.9 % (0.0-3.0); HEMATOCRIT 32.6 % (42.0-52.0); HEMOGLOBIN 9.9 g/dl (13.5-17.5); LYMPH # 1.2 10^3/uL (1.5-5.0); LYMPH % 17.6 % (24.0-44.0); MEAN CORPUSCULAR HGB CONC 30.4 g/dl (32.0-36.5); MEAN CORPUSCULAR VOLUME 89.1 fl (80.0-96.0); MONO # 0.6 10^3/uL (0.0-0.8); MONO % 9.4 % (2.0-8.0); NEUTROPHILS # 4.5 10^3/uL (1.5-8.5); NEUTROPHILS % 68.6 % (36.0-66.0); PLATELET COUNT, AUTOMATED 345 10^3/uL (150-450); RED BLOOD COUNT 3.66 10^6/uL (4.30-6.10); WHITE BLOOD COUNT 6.5 10^3/uL (4.0-10.0)
[2023-05-02 20:55] LABS: ERYTHROCYTE SEDIMENTATION RATE 92 mm/hr (0-20)
[2023-05-02] MEDS ORDERED: FUROSEMIDE 20MG/2ML VIAL IV ONE (21:35)
[2023-05-02 22:08] LABS: C REACTIVE PROTEIN QUANTITATIV 4.2 MG/DL (<1.0)
[2023-05-02] MEDS ORDERED: PANTOPRAZOLE 40MG VIAL IV ONE (23:50)
[2023-05-03] MEDS ORDERED: MORPHINE 2 MG/ML 1ML VIAL IV PRN (01:00)
[2023-05-03] MEDS ORDERED: VANCOMYCIN HCL 1,000 MG, VIAL MATE ADAPTER 1 EACH in D5W 250 ML IV ONE ×2 (01:00→02:00)
[2023-05-03] MEDS ORDERED: FERR325T19 PO (01:25)
[2023-05-03] MEDS ORDERED: VENTAER INH (01:25)
[2023-05-03] MEDS ORDERED: PANT40TA29 PO (01:25)
[2023-05-03 01:27] LABS: PERCENT SATURATION 14.5 % (19.7-50.0)
[2023-05-03 01:29] LABS: FERRITIN 33.1 NG/ML (10.5-307.3); FOLATE 10.62 NG/ML (>5.4)
[2023-05-03] MEDS ORDERED: HOME MED LIST COMPLETE! XX SCH (01:30)
[2023-05-03] MEDS: PERCOCET 5MG/325MG TAB PO PRN ×3 (01:37→22:32)
[2023-05-03] MEDS ORDERED: ALBUTEROL 90 MCG/ACT 8GM HFA INHALER INH PRN (01:40)
[2023-05-03 06:20] LABS: HEMATOCRIT 32.9 % (42.0-52.0); HEMOGLOBIN 10.1 g/dl (13.5-17.5); MEAN CORPUSCULAR HEMOGLOBIN 27.3 pg (27.0-33.0); MEAN CORPUSCULAR HGB CONC 30.7 g/dl (32.0-36.5); MEAN CORPUSCULAR VOLUME 88.9 fl (80.0-96.0); PLATELET COUNT, AUTOMATED 297 10^3/uL (150-450); WHITE BLOOD COUNT 5.9 10^3/uL (4.0-10.0)
[2023-05-03 06:53] LABS: BLOOD UREA NITROGEN 13 MG/DL (9-23); CARBON DIOXIDE LEVEL 30 MMOL/L (20-31); CHLORIDE LEVEL 104 MMOL/L (98-107); CREATININE FOR GFR 1.04 MG/DL (0.70-1.30); GLOMERULAR FILTRATION RATE > 60.0 (>35); GLUCOSE, FASTING 101 MG/DL (74-106); MAGNESIUM LEVEL 2.1 MG/DL (1.8-2.4); POTASSIUM SERUM 3.8 MMOL/L (3.5-5.1); SODIUM LEVEL 139 MMOL/L (136-145)
[2023-05-03 07:05] LABS: PROCALCITONIN 0.06 ng/ml
[2023-05-03] MEDS: ADVAIR HFA 115/21MCG INHALER INH SCH ×2 (07:49→20:39)
[2023-05-03] MEDS: SUCRALFATE SUSP 1GM/10ML UD PO SCH ×4 (08:05→21:52)
[2023-05-03] MEDS: PANTOPRAZOLE 40MG TAB (PROTONIX) PO SCH (08:06)
[2023-05-03] MEDS: FERROUS SULFATE 325MG TAB PO SCH (08:06)
[2023-05-03] MEDS: TORSEMIDE 10 MG TABLET PO SCH (08:06)
[2023-05-03] MEDS: PRAVASTATIN 20 MG TAB PO SCH (08:06)
[2023-05-03] MEDS: POTASSIUM CHLORIDE 10MEQ SR TABLET PO SCH ×2 (08:06→21:52)
[2023-05-03 14:00] VITALS: BP 140/64; TEMP 98.1; O2SAT 95
[2023-05-03] MEDS ORDERED: VANCOMYCIN HCL 1,000 MG, VIAL MATE ADAPTER 1 EACH in D5W 250 ML IV SCH (14:00)
[2023-05-03 16:00] VITALS: BP 117/83; TEMP 97.7; O2SAT 95
[2023-05-03] MEDS: VANCOMYCIN HCL 750 MG, VIAL MATE ADAPTER 1 EACH in D5W 250 ML IV SCH (18:06)
[2023-05-03 20:27] VITALS: BP 140/60; TEMP 97.9; O2SAT 63; O2SAT 93
[2023-05-03] MEDS: LATANOPROST 0.005% OPHTH SOLN 2.5 ML OU SCH (22:31)
[2023-05-04] MEDS: VANCOMYCIN HCL 750 MG, VIAL MATE ADAPTER 1 EACH in D5W 250 ML IV SCH (05:18)
[2023-05-04 05:35] VITALS: BP 111/49; TEMP 97.5; O2SAT 91
[2023-05-04 05:36] LABS: BASO # 0.1 10^3/uL (0.0-0.2); BASO % 1.7 % (0.0-1.0); EOS # 0.3 10^3/uL (0.0-0.5); EOS % 4.8 % (0.0-3.0); HEMATOCRIT 30.7 % (42.0-52.0); HEMOGLOBIN 9.4 g/dl (13.5-17.5); LYMPH # 1.2 10^3/uL (1.5-5.0); MEAN CORPUSCULAR HEMOGLOBIN 27.2 pg (27.0-33.0); MEAN CORPUSCULAR HGB CONC 30.6 g/dl (32.0-36.5); MONO # 0.7 10^3/uL (0.0-0.8); MONO % 13.7 % (2.0-8.0); NEUTROPHILS # 3.1 10^3/uL (1.5-8.5); NEUTROPHILS % 56.6 % (36.0-66.0); PLATELET COUNT, AUTOMATED 302 10^3/uL (150-450); RED BLOOD COUNT 3.45 10^6/uL (4.30-6.10); WHITE BLOOD COUNT 5.4 10^3/uL (4.0-10.0)
[2023-05-04 06:04] LABS: BLOOD UREA NITROGEN 14 MG/DL (9-23); CALCIUM LEVEL 8.7 MG/DL (8.3-10.6); CARBON DIOXIDE LEVEL 28 MMOL/L (20-31); CHLORIDE LEVEL 106 MMOL/L (98-107); CREATININE FOR GFR 1.12 MG/DL (0.70-1.30); GLOMERULAR FILTRATION RATE > 60.0 (>35); GLUCOSE, FASTING 119 MG/DL (74-106); MAGNESIUM LEVEL 2.1 MG/DL (1.8-2.4); POTASSIUM SERUM 4.4 MMOL/L (3.5-5.1); SODIUM LEVEL 141 MMOL/L (136-145)
[2023-05-04 06:08] LABS: ERYTHROCYTE SEDIMENTATION RATE 94 mm/hr (0-20)
[2023-05-04] MEDS: ADVAIR HFA 115/21MCG INHALER INH SCH ×2 (07:33→20:37)
[2023-05-04] MEDS: POTASSIUM CHLORIDE 10MEQ SR TABLET PO SCH ×2 (08:35→20:55)
[2023-05-04] MEDS: PANTOPRAZOLE 40MG TAB (PROTONIX) PO SCH (08:35)
[2023-05-04] MEDS: FERROUS SULFATE 325MG TAB PO SCH (08:35)
[2023-05-04] MEDS: TORSEMIDE 10 MG TABLET PO SCH (08:36)
[2023-05-04] MEDS: SUCRALFATE SUSP 1GM/10ML UD PO SCH ×4 (08:36→20:54)
[2023-05-04] MEDS: PRAVASTATIN 20 MG TAB PO SCH (08:36)
[2023-05-04] MEDS: ACETAMINOPHEN TAB 650MG DOSE (2X325MG) PO PRN ×2 (08:36→20:55)
[2023-05-04] MEDS: CLOPIDOGREL 75 MG TAB PO SCH (10:31)
[2023-05-04] MEDS: HEPARIN SOD (PORCINE) 5000UNITS/ML 1ML VIAL/SYRINGE SQ SCH ×2 (10:31→20:55)
[2023-05-04] MEDS: ASPIRIN 81MG ENTERIC TABLET PO SCH (10:31)
[2023-05-04] MEDS: traMADol 50 MG TAB PO PRN ×2 (10:32→22:47)
[2023-05-04 14:30] VITALS: BP 114/56; TEMP 97.7; O2SAT 96
[2023-05-04 20:51] VITALS: BP 107/51; TEMP 98.1; O2SAT 98
[2023-05-04] MEDS: LATANOPROST 0.005% OPHTH SOLN 2.5 ML OU SCH (20:56)
[2023-05-05 05:33] LABS: BASO # 0.1 10^3/uL (0.0-0.2); BASO % 1.5 % (0.0-1.0); EOS # 0.4 10^3/uL (0.0-0.5); EOS % 8.8 % (0.0-3.0); HEMATOCRIT 32.2 % (42.0-52.0); HEMOGLOBIN 9.7 g/dl (13.5-17.5); LYMPH # 1.3 10^3/uL (1.5-5.0); LYMPH % 26.9 % (24.0-44.0); MEAN CORPUSCULAR HEMOGLOBIN 27.4 pg (27.0-33.0); MEAN CORPUSCULAR HGB CONC 30.1 g/dl (32.0-36.5); MONO # 0.6 10^3/uL (0.0-0.8); NEUTROPHILS # 2.3 10^3/uL (1.5-8.5); NEUTROPHILS % 50.4 % (36.0-66.0); PLATELET COUNT, AUTOMATED 304 10^3/uL (150-450); RED BLOOD COUNT 3.54 10^6/uL (4.30-6.10); WHITE BLOOD COUNT 4.7 10^3/uL (4.0-10.0)
[2023-05-05 05:36] VITALS: BP 162/63; TEMP 97.7; O2SAT 96
[2023-05-05] MEDS: ACETAMINOPHEN TAB 650MG DOSE (2X325MG) PO PRN ×3 (05:45→17:54)
[2023-05-05 06:03] LABS: BLOOD UREA NITROGEN 15 MG/DL (9-23); CALCIUM LEVEL 8.6 MG/DL (8.3-10.6); CARBON DIOXIDE LEVEL 30 MMOL/L (20-31); CHLORIDE LEVEL 106 MMOL/L (98-107); CREATININE FOR GFR 0.97 MG/DL (0.70-1.30); GLOMERULAR FILTRATION RATE > 60.0 (>35); GLUCOSE, FASTING 106 MG/DL (74-106); MAGNESIUM LEVEL 2.2 MG/DL (1.8-2.4); POTASSIUM SERUM 4.4 MMOL/L (3.5-5.1); SODIUM LEVEL 140 MMOL/L (136-145)
[2023-05-05] MEDS ORDERED: SENNA 8.6 MG TAB (SENOKOT) PO PRN (07:45)
[2023-05-05] MEDS: ADVAIR HFA 115/21MCG INHALER INH SCH ×2 (07:50→21:01)
[2023-05-05] MEDS: PRAVASTATIN 20 MG TAB PO SCH (08:31)
[2023-05-05] MEDS: SUCRALFATE SUSP 1GM/10ML UD PO SCH ×4 (08:31→20:40)
[2023-05-05] MEDS: ASPIRIN 81MG ENTERIC TABLET PO SCH (08:31)
[2023-05-05] MEDS: HEPARIN SOD (PORCINE) 5000UNITS/ML 1ML VIAL/SYRINGE SQ SCH ×2 (08:32→20:40)
[2023-05-05] MEDS: PANTOPRAZOLE 40MG TAB (PROTONIX) PO SCH (08:32)
[2023-05-05] MEDS: FERROUS SULFATE 325MG TAB PO SCH (08:32)
[2023-05-05] MEDS: TORSEMIDE 10 MG TABLET PO SCH (08:32)
[2023-05-05] MEDS: CLOPIDOGREL 75 MG TAB PO SCH (08:32)
[2023-05-05] MEDS: POTASSIUM CHLORIDE 10MEQ SR TABLET PO SCH ×2 (08:32→20:41)
[2023-05-05 08:44] LABS: VANCOMYCIN LEVEL TROUGH 13.2 UG/ML (10.0-20.0)
[2023-05-05] MEDS: traMADol 50 MG TAB PO PRN ×2 (10:48→20:42)
[2023-05-05 14:00] VITALS: BP 117/44; TEMP 97.3; O2SAT 95
[2023-05-05 20:23] VITALS: BP 125/64; TEMP 97.3; O2SAT 95
[2023-05-05 20:32] VITALS: BP 134/54; TEMP 97.5; O2SAT 97
[2023-05-05] MEDS: LATANOPROST 0.005% OPHTH SOLN 2.5 ML OU SCH (20:42)
[2023-05-06] MEDS: ACETAMINOPHEN TAB 650MG DOSE (2X325MG) PO PRN (04:48)
[2023-05-06 06:19] VITALS: BP 135/59; TEMP 97.5; O2SAT 94
[2023-05-06 06:36] LABS: BASO # 0.1 10^3/uL (0.0-0.2); BASO % 1.4 % (0.0-1.0); EOS # 0.4 10^3/uL (0.0-0.5); EOS % 7.7 % (0.0-3.0); HEMATOCRIT 30.9 % (42.0-52.0); HEMOGLOBIN 9.4 g/dl (13.5-17.5); LYMPH # 1.2 10^3/uL (1.5-5.0); LYMPH % 23.4 % (24.0-44.0); MEAN CORPUSCULAR HEMOGLOBIN 27.4 pg (27.0-33.0); MEAN CORPUSCULAR HGB CONC 30.4 g/dl (32.0-36.5); MEAN CORPUSCULAR VOLUME 90.1 fl (80.0-96.0); MONO # 0.7 10^3/uL (0.0-0.8); MONO % 13.4 % (2.0-8.0); NEUTROPHILS # 2.6 10^3/uL (1.5-8.5); NEUTROPHILS % 53.7 % (36.0-66.0); PLATELET COUNT, AUTOMATED 295 10^3/uL (150-450); RED BLOOD COUNT 3.43 10^6/uL (4.30-6.10); WHITE BLOOD COUNT 4.9 10^3/uL (4.0-10.0)
[2023-05-06 06:55] LABS: BLOOD UREA NITROGEN 13 MG/DL (9-23); CALCIUM LEVEL 8.7 MG/DL (8.3-10.6); CARBON DIOXIDE LEVEL 29 MMOL/L (20-31); CHLORIDE LEVEL 107 MMOL/L (98-107); CREATININE FOR GFR 0.95 MG/DL (0.70-1.30); GLOMERULAR FILTRATION RATE > 60.0 (>35); GLUCOSE, FASTING 104 MG/DL (74-106); MAGNESIUM LEVEL 2.1 MG/DL (1.8-2.4); POTASSIUM SERUM 4.5 MMOL/L (3.5-5.1); SODIUM LEVEL 141 MMOL/L (136-145)
[2023-05-06] MEDS: ADVAIR HFA 115/21MCG INHALER INH SCH (08:04)
[2023-05-06] MEDS: HEPARIN SOD (PORCINE) 5000UNITS/ML 1ML VIAL/SYRINGE SQ SCH (09:20)
[2023-05-06] MEDS: FERROUS SULFATE 325MG TAB PO SCH (09:20)
[2023-05-06] MEDS: POTASSIUM CHLORIDE 10MEQ SR TABLET PO SCH (09:21)
[2023-05-06] MEDS: TORSEMIDE 10 MG TABLET PO SCH (09:21)
[2023-05-06] MEDS: ASPIRIN 81MG ENTERIC TABLET PO SCH (09:21)
[2023-05-06] MEDS: PANTOPRAZOLE 40MG TAB (PROTONIX) PO SCH (09:21)
[2023-05-06] MEDS: SUCRALFATE SUSP 1GM/10ML UD PO SCH ×2 (09:21→12:33)
[2023-05-06] MEDS: PRAVASTATIN 20 MG TAB PO SCH (09:22)
[2023-05-06] MEDS: CLOPIDOGREL 75 MG TAB PO SCH (09:22)
[2023-05-06] MEDS: traMADol 50 MG TAB PO PRN (09:24)
[2023-05-06] MEDS ORDERED: TRAM50TA2 PO (10:34)
[2023-05-06] MEDS ORDERED: SENN-188 PO (10:34)
[2023-05-06] MEDS ORDERED: ACET1TAB55 PO (10:34)
[2023-05-06 14:00] VITALS: BP 110/58; TEMP 97.5; O2SAT 93
== END 2023-05-06 15:15 | disposition home health service (06) | DRG 300 ==
LOC: M ED 18:14 → M ED INP 05-03 00:57 → ENRESERV 05-03 14:45 → M MS5PR 05-03 16:00
PROVIDERS: ADMIT Internal Medicine; ATTEND Family Medicine
DX: I70.233 Atherosclerosis of native arteries of right leg with ulceration of ankle (principal); Z68.41 Body mass index [BMI] 40.0-44.9, adult; L03.115 Cellulitis of right lower limb; D64.9 Anemia, unspecified; J44.9 Chronic obstructive pulmonary disease, unspecified; I10 Essential (primary) hypertension; I73.9 Peripheral vascular disease, unspecified; E78.5 Hyperlipidemia, unspecified; H40.9 Unspecified glaucoma; E66.01 Morbid (severe) obesity due to excess calories; Z99.81 Dependence on supplemental oxygen; Z79.82 Long term (current) use of aspirin; Z79.899 Other long term (current) drug therapy; I70.232 Atherosclerosis of native arteries of right leg with ulceration of calf

== ENCOUNTER → 2023-05-13 | Outpatient (CLI) | payer MEDICARE, OTHER ==
[~2023-05-13] MED LIST changes: +ACET1TAB55 PO; +FERR325T19 PO; -GABA-283 PO; +GABA-284 PO; +SENN-188 PO
[2023-05-13 10:43] LABS: BASO # 0.1 10^3/uL (0.0-0.2); BASO % 1.3 % (0.0-1.0); EOS # 0.5 10^3/uL (0.0-0.5); EOS % 9.5 % (0.0-3.0); HEMATOCRIT 35.4 % (42.0-52.0); HEMOGLOBIN 10.6 g/dl (13.5-17.5); LYMPH # 1.3 10^3/uL (1.5-5.0); LYMPH % 22.6 % (24.0-44.0); MEAN CORPUSCULAR HEMOGLOBIN 27.2 pg (27.0-33.0); MEAN CORPUSCULAR HGB CONC 29.9 g/dl (32.0-36.5); MONO # 0.7 10^3/uL (0.0-0.8); MONO % 11.7 % (2.0-8.0); NEUTROPHILS % 54.5 % (36.0-66.0); PLATELET COUNT, AUTOMATED 261 10^3/uL (150-450); RED BLOOD COUNT 3.89 10^6/uL (4.30-6.10); WHITE BLOOD COUNT 5.6 10^3/uL (4.0-10.0)
[2023-05-13 11:22] LABS: PERCENT SATURATION 8.9 % (19.7-50.0)
[2023-05-13 11:23] LABS: FOLATE 12.3 NG/ML (>5.4)
[2023-05-13 11:24] LABS: FERRITIN 27.6 NG/ML (10.5-307.3)
== END ==
LOC: M PLALAB 09:04
PROVIDERS: ATTEND Student in an Organized Health Care Education/Training Program
DX: D50.8 Other iron deficiency anemias (principal)

== ENCOUNTER → 2023-06-12 | Outpatient (CLI) | payer MEDICARE, OTHER | LOC: M RAD 12:38 | PROVIDERS: ATTEND Surgery Vascular Surgery | DX: I70.248 Atherosclerosis of native arteries of left leg with ulceration of other part of lower leg (principal); I70.213 Atherosclerosis of native arteries of extremities with intermittent claudication, bilateral legs ==

== ENCOUNTER → 2023-06-25 | Outpatient (REF) | payer MEDICARE, OTHER | LOC: M LAB REF 16:01 | PROVIDERS: ATTEND Podiatrist | DX: L03.032 Cellulitis of left toe (principal) ==

== ENCOUNTER → 2023-08-07 | Outpatient (REF) | payer MEDICARE, OTHER | LOC: M SFHCPLAZ 15:06 | PROVIDERS: ATTEND Internal Medicine Hematology | DX: E11.29 Type 2 diabetes mellitus with other diabetic kidney complication (principal); E78.00 Pure hypercholesterolemia, unspecified ==

== ENCOUNTER → 2023-10-08 | Outpatient (CLI) | payer MEDICARE, OTHER ==
[2023-10-08 16:20] LABS: ALBUMIN 3.4 G/DL (3.2-5.2); ALKALINE PHOSPHATASE 99 U/L (46-116); ALT/SGPT 13 U/L (7.0-40); AST/SGOT 12 U/L (<34); BILIRUBIN,TOTAL 0.6 MG/DL (0.3-1.2); BLOOD UREA NITROGEN 27 MG/DL (9-23); CALCIUM LEVEL 9.3 MG/DL (8.3-10.6); CARBON DIOXIDE LEVEL 27 MMOL/L (20-31); CHLORIDE LEVEL 108 MMOL/L (98-107); CHOLESTEROL LEVEL 146 MG/DL (<200); CHOLESTEROL RISK RATIO 2.96 (<5); CREATININE FOR GFR 1.14 MG/DL (0.70-1.30); GLOMERULAR FILTRATION RATE > 60.0 (>35); GLUCOSE, FASTING 108 MG/DL (74-106); HDL CHOLESTEROL 49.2 MG/DL (>40); LDL CHOLESTEROL 67.8 MG/DL (<100); NON-HDL-C 96.8 MG/DL; POTASSIUM SERUM 4.4 MMOL/L (3.5-5.1); SODIUM LEVEL 142 MMOL/L (136-145); TOTAL PROTEIN 7.4 G/DL (5.7-8.2); TRIGLYCERIDES LEVEL 145 MG/DL (<150)
[2023-10-08 16:21] LABS: HEMOGLOBIN A1c 6.3 % (4.0-6.0)
== END ==
LOC: M PLALAB 14:18
PROVIDERS: ATTEND Student in an Organized Health Care Education/Training Program
DX: E11.29 Type 2 diabetes mellitus with other diabetic kidney complication (principal); E78.00 Pure hypercholesterolemia, unspecified

== ENCOUNTER → 2023-11-07 | Outpatient (CLI) | payer MEDICARE, OTHER ==
[2023-11-07 13:56] LABS: BLOOD UREA NITROGEN 26 MG/DL (9-23); CREATININE FOR GFR 1.19 MG/DL (0.70-1.30); GLOMERULAR FILTRATION RATE > 60.0 (>35)
== END ==
LOC: M PLALAB 09:23
PROVIDERS: ATTEND Physician Assistant
DX: I73.9 Peripheral vascular disease, unspecified (principal)

== ENCOUNTER → 2023-11-20 | Outpatient (CLI) | payer MEDICARE, OTHER ==
[~2023-11-20] MED LIST changes: +ISOVUE-370 76% 100ML VIAL As Ordered ONE
== END ==
LOC: M RAD 09:23
PROVIDERS: ATTEND Physician Assistant
DX: I73.9 Peripheral vascular disease, unspecified (principal)
CPT/HCPCS: 75635; Q9967

== ENCOUNTER 2023-11-23 13:07 | Inpatient (IN) | payer MEDICARE, OTHER ==
[~2023-11-23] VITALS: Ht 160 cm; Wt 114.2 kg
[~2023-11-23 13:07] MED LIST changes: -ASPI-161 PO; +ASPI-615 PO; -HYDR25TA PO; +HYDR25TA88 PO; -ISOVUE-370 76% 100ML VIAL As Ordered ONE
[2023-11-23 14:06] LABS: BASO % 0.2 % (0.0-1.0); EOS % 0.1 % (0.0-3.0); HEMATOCRIT 28.6 % (42.0-52.0); HEMOGLOBIN 9.1 g/dl (13.5-17.5); LYMPH # 0.7 10^3/uL (1.5-5.0); LYMPH % 4.8 % (24.0-44.0); MEAN CORPUSCULAR HEMOGLOBIN 27.8 pg (27.0-33.0); MEAN CORPUSCULAR HGB CONC 31.8 g/dl (32.0-36.5); MEAN CORPUSCULAR VOLUME 87.5 fl (80.0-96.0); MONO # 1.1 10^3/uL (0.0-0.8); MONO % 7.6 % (2.0-8.0); NEUTROPHILS # 12.2 10^3/uL (1.5-8.5); NEUTROPHILS % 86.9 % (36.0-66.0); PLATELET COUNT, AUTOMATED 240 10^3/uL (150-450); RED BLOOD COUNT 3.27 10^6/uL (4.30-6.10)
[2023-11-23 14:22] LABS: INR 1.22
[2023-11-23] MEDS: MORPHINE 2 MG/ML 1ML VIAL IV ONE (14:22)
[2023-11-23 14:23] LABS: PARTIAL THROMBOPLASTIN TIME 37.6 SECONDS (24.8-34.2)
[2023-11-23 14:29] LABS: ALBUMIN 2.5 G/DL (3.2-5.2); BILIRUBIN,DIRECT 0.4 MG/DL (<0.4); BILIRUBIN,TOTAL 0.9 MG/DL (0.3-1.2); CALCIUM LEVEL 8.4 MG/DL (8.3-10.6); CREATININE FOR GFR 1.84 MG/DL (0.70-1.30); GLOMERULAR FILTRATION RATE 37.5 (>35); POTASSIUM SERUM 3.9 MMOL/L (3.5-5.1); TOTAL PROTEIN 6.4 G/DL (5.7-8.2)
[2023-11-23 14:42] LABS: RSV AMPLIFICATION NEGATIVE (NEGATIVE)
[2023-11-23 14:44] LABS: C REACTIVE PROTEIN QUANTITATIV 30.3 MG/DL (<1.0)
[2023-11-23] MEDS: VANCOMYCIN HCL 1,000 MG, VIAL MATE ADAPTER 1 EACH in D5W 250 ML IV ONE (15:31)
[2023-11-23] MEDS ORDERED: CEFTAROLINE FOSAMIL 300 MG in D5W 50 ML IV SCH (16:15)
[2023-11-23] MEDS ORDERED: GLUCOSE 4GM CHEW TABLET PO PRN (16:15)
[2023-11-23] MEDS ORDERED: DEXTROSE 50% 50ML SYRINGE IV PRN (16:15)
[2023-11-23] MEDS ORDERED: GLUCAGON INJ 1MG VIAL SC PRN (16:15)
[2023-11-23 16:46] LABS: HEMOGLOBIN A1c 6.2 % (4.0-6.0)
[2023-11-23 16:51] LABS: PROCALCITONIN 5.78 ng/ml
[2023-11-23] MEDS ORDERED: ACET-897 PO (17:57)
[2023-11-23] MEDS ORDERED: LOSA100T46 PO (18:00)
[2023-11-23] MEDS ORDERED: PSYL0.4C4 PO (18:00)
[2023-11-23] MEDS ORDERED: OMEG100011 PO (18:01)
[2023-11-23 18:05] VITALS: BP 109/55; TEMP 97.7; O2SAT 95
[2023-11-23] MEDS ORDERED: HOME MED LIST COMPLETE! XX SCH (18:05)
[2023-11-23] MEDS ORDERED: NALOXONE INJ 0.4MG/1ML VIAL IV PRN (18:05)
[2023-11-23] MEDS: NS 1,000 ML IV SCH (18:14)
[2023-11-23] MEDS: PERCOCET 5MG/325MG TAB PO ONE (18:17)
[2023-11-23 20:00] VITALS: BP 121/53; TEMP 97.7; O2SAT 95
[2023-11-23] MEDS: CEFTAROLINE FOSAMIL 400 MG in D5W MINI-BAG PLUS 50 ML IV SCH (20:18)
[2023-11-23] MEDS: ALBUTEROL 90 MCG/ACT 8GM HFA INHALER INH SCH (20:28)
[2023-11-23] MEDS: INSULIN LISPRO (NovoLOG) PER UNIT SC SCH (21:00)
[2023-11-23] MEDS: LATANOPROST 0.005% OPHTH SOLN 2.5 ML OU SCH (21:56)
[2023-11-23] MEDS: PERCOCET 5MG/325MG TAB PO PRN (22:04)
[2023-11-24 06:00] VITALS: BP 116/56; TEMP 97.9; O2SAT 95
[2023-11-24 06:32] LABS: BASO % 0.3 % (0.0-1.0); EOS # 0.2 10^3/uL (0.0-0.5); EOS % 2.2 % (0.0-3.0); HEMOGLOBIN 8.8 g/dl (13.5-17.5); LYMPH # 0.6 10^3/uL (1.5-5.0); LYMPH % 7.1 % (24.0-44.0); MEAN CORPUSCULAR HGB CONC 31.4 g/dl (32.0-36.5); MEAN CORPUSCULAR VOLUME 89.2 fl (80.0-96.0); MONO # 0.8 10^3/uL (0.0-0.8); MONO % 9.4 % (2.0-8.0); NEUTROPHILS # 7.1 10^3/uL (1.5-8.5); NEUTROPHILS % 80.5 % (36.0-66.0); PLATELET COUNT, AUTOMATED 226 10^3/uL (150-450); RED BLOOD COUNT 3.14 10^6/uL (4.30-6.10); WHITE BLOOD COUNT 8.8 10^3/uL (4.0-10.0)
[2023-11-24 07:04] LABS: CALCIUM LEVEL 7.9 MG/DL (8.3-10.6); CHOLESTEROL RISK RATIO 3.9 (<5); CREATININE FOR GFR 1.6 MG/DL (0.70-1.30); GLOMERULAR FILTRATION RATE 44.1 (>35); HDL CHOLESTEROL 30.5 MG/DL (>40); LDL CHOLESTEROL 59.5 MG/DL (<100); NON-HDL-C 88.5 MG/DL
[2023-11-24] MEDS: INSULIN LISPRO (NovoLOG) PER UNIT SC SCH (07:30)
[2023-11-24] MEDS: PANTOPRAZOLE 40MG TAB (PROTONIX) PO SCH (09:42)
[2023-11-24] MEDS: PRAVASTATIN 20 MG TAB PO SCH (09:42)
[2023-11-24] MEDS: CLOPIDOGREL 75 MG TAB PO SCH (09:42)
[2023-11-24] MEDS: OMEGA-3 1000MG CAPSULE PO SCH (09:42)
[2023-11-24 14:00] VITALS: BP 98/52; TEMP 97.7; O2SAT 93
[2023-11-24] MEDS: MORPHINE 4 MG/ML 1ML VIAL IV PRN (17:01)
[2023-11-24 19:49] VITALS: O2SAT 94
[2023-11-24 22:01] VITALS: BP 98/49; TEMP 97.3; O2SAT 95
[2023-11-24] MEDS: PERCOCET 5MG/325MG TAB PO PRN (22:26)
[2023-11-25 04:00] VITALS: BP 123/87; TEMP 97.5; O2SAT 91
[2023-11-25 06:47] LABS: BASO % 0.5 % (0.0-1.0); EOS # 0.2 10^3/uL (0.0-0.5); EOS % 3.1 % (0.0-3.0); HEMATOCRIT 26.8 % (42.0-52.0); HEMOGLOBIN 8.2 g/dl (13.5-17.5); LYMPH # 0.8 10^3/uL (1.5-5.0); MEAN CORPUSCULAR HEMOGLOBIN 27.8 pg (27.0-33.0); MEAN CORPUSCULAR HGB CONC 30.6 g/dl (32.0-36.5); MEAN CORPUSCULAR VOLUME 90.8 fl (80.0-96.0); MONO % 13.5 % (2.0-8.0); NEUTROPHILS # 5.2 10^3/uL (1.5-8.5); NEUTROPHILS % 70.5 % (36.0-66.0); PLATELET COUNT, AUTOMATED 231 10^3/uL (150-450); RED BLOOD COUNT 2.95 10^6/uL (4.30-6.10); WHITE BLOOD COUNT 7.4 10^3/uL (4.0-10.0)
[2023-11-25 07:20] LABS: CALCIUM LEVEL 7.7 MG/DL (8.3-10.6); CREATININE FOR GFR 1.57 MG/DL (0.70-1.30); POTASSIUM SERUM 4.2 MMOL/L (3.5-5.1)
[2023-11-25] MEDS: MIRALAX *UNIT DOSE* 17GM PACKET PO SCH (11:34)
[2023-11-25] MEDS: DOCUSATE SODIUM 100MG CAPSULE PO SCH (11:35)
[2023-11-25 14:00] VITALS: BP 110/53; TEMP 97.2; O2SAT 98
[2023-11-25] MEDS: HEPARIN SOD (PORCINE) 5000UNITS/ML 1ML VIAL/SYRINGE SQ SCH (20:44)
[2023-11-25] MEDS: ADVAIR HFA 115/21MCG INHALER INH SCH (21:15)
[2023-11-25 22:00] VITALS: BP 123/58; TEMP 97.5; O2SAT 94
[2023-11-26 06:00] VITALS: BP 124/61; TEMP 97.9; O2SAT 94
[2023-11-26 07:45] LABS: BASO # 0.1 10^3/uL (0.0-0.2); BASO % 0.6 % (0.0-1.0); EOS # 0.3 10^3/uL (0.0-0.5); HEMOGLOBIN 7.9 g/dl (13.5-17.5); LYMPH # 0.8 10^3/uL (1.5-5.0); LYMPH % 9.3 % (24.0-44.0); MEAN CORPUSCULAR HEMOGLOBIN 27.1 pg (27.0-33.0); MEAN CORPUSCULAR HGB CONC 30.4 g/dl (32.0-36.5); MEAN CORPUSCULAR VOLUME 89.3 fl (80.0-96.0); MONO # 0.9 10^3/uL (0.0-0.8); MONO % 10.1 % (2.0-8.0); NEUTROPHILS # 6.3 10^3/uL (1.5-8.5); NEUTROPHILS % 74.8 % (36.0-66.0); PLATELET COUNT, AUTOMATED 233 10^3/uL (150-450); RED BLOOD COUNT 2.91 10^6/uL (4.30-6.10); WHITE BLOOD COUNT 8.5 10^3/uL (4.0-10.0)
[2023-11-26 08:12] LABS: CREATININE FOR GFR 1.45 MG/DL (0.70-1.30); GLOMERULAR FILTRATION RATE 49.4 (>35); POTASSIUM SERUM 4.3 MMOL/L (3.5-5.1)
[2023-11-26 08:14] VITALS: O2SAT 92
[2023-11-26] MEDS: ACETAMINOPHEN 500 MG TAB PO PRN (08:32)
[2023-11-26 14:00] VITALS: BP 124/61; TEMP 97.9; O2SAT 92
[2023-11-26] MEDS: MOM 30ML SUSPENSION UDC PO ONE (15:03)
[2023-11-26] MEDS: BISACODYL 10MG SUPP PR ONE (15:03)
[2023-11-26] MEDS: cefTRIAXone SOD 1 GM in D5W MINI-BAG PLUS 50 ML IV SCH (19:48)
[2023-11-26 22:00] VITALS: BP 106/51; TEMP 97.5; O2SAT 93
[2023-11-27 05:30] VITALS: BP 135/55; TEMP 97.5; O2SAT 95
[2023-11-27 05:49] LABS: BASO # 0.1 10^3/uL (0.0-0.2); BASO % 0.8 % (0.0-1.0); EOS # 0.3 10^3/uL (0.0-0.5); EOS % 3.4 % (0.0-3.0); HEMATOCRIT 26.7 % (42.0-52.0); HEMOGLOBIN 8.3 g/dl (13.5-17.5); LYMPH # 0.8 10^3/uL (1.5-5.0); LYMPH % 8.6 % (24.0-44.0); MEAN CORPUSCULAR HEMOGLOBIN 27.8 pg (27.0-33.0); MEAN CORPUSCULAR HGB CONC 31.1 g/dl (32.0-36.5); MEAN CORPUSCULAR VOLUME 89.3 fl (80.0-96.0); MONO # 0.9 10^3/uL (0.0-0.8); MONO % 9.5 % (2.0-8.0); NEUTROPHILS # 6.6 10^3/uL (1.5-8.5); NEUTROPHILS % 73.5 % (36.0-66.0); PLATELET COUNT, AUTOMATED 263 10^3/uL (150-450); RED BLOOD COUNT 2.99 10^6/uL (4.30-6.10)
[2023-11-27 06:13] LABS: CALCIUM LEVEL 8.3 MG/DL (8.3-10.6); CREATININE FOR GFR 1.28 MG/DL (0.70-1.30); MAGNESIUM LEVEL 2.6 MG/DL (1.8-2.4); PHOSPHORUS LEVEL 3.4 MG/DL (2.4-5.1); POTASSIUM SERUM 4.5 MMOL/L (3.5-5.1)
[2023-11-27 14:00] VITALS: BP 121/59; TEMP 97.7; O2SAT 95
[2023-11-27] MEDS ORDERED: CEPH500T PO (16:24)
[2023-11-27] MEDS ORDERED: CEFD1CAP9 PO (16:25)
[2023-11-27 20:08] VITALS: BP 125/58; TEMP 97.7; O2SAT 96
[2023-11-27 21:38] VITALS: O2SAT 88
== END 2023-11-27 21:33 | disposition short-term general hospital (02) | DRG 603 ==
LOC: EDBD 13:07 → M ED 13:07 → M ED INP 16:05 → M MSPAV 18:00
PROVIDERS: ADMIT General Practice; ATTEND Internal Medicine
DX: L03.116 Cellulitis of left lower limb (principal); R04.2 Hemoptysis; N17.9 Acute kidney failure, unspecified; I50.32 Chronic diastolic (congestive) heart failure; Z68.41 Body mass index [BMI] 40.0-44.9, adult; L97.929 Non-pressure chronic ulcer of unspecified part of left lower leg with unspecified severity; I13.0 Hypertensive heart and chronic kidney disease with heart failure and stage 1 through stage 4 chronic kidney disease, or unspecified chronic kidney disease; R04.0 Epistaxis; J44.9 Chronic obstructive pulmonary disease, unspecified; E11.51 Type 2 diabetes mellitus with diabetic peripheral angiopathy without gangrene; L03.115 Cellulitis of right lower limb; E11.22 Type 2 diabetes mellitus with diabetic chronic kidney disease; I12.9 Hypertensive chronic kidney disease with stage 1 through stage 4 chronic kidney disease, or unspecified chronic kidney disease; E66.01 Morbid (severe) obesity due to excess calories; H91.90 Unspecified hearing loss, unspecified ear; F17.200 Nicotine dependence, unspecified, uncomplicated; E78.5 Hyperlipidemia, unspecified; G47.33 Obstructive sleep apnea (adult) (pediatric); Z85.820 Personal history of malignant melanoma of skin; Z87.891 Personal history of nicotine dependence; Z79.899 Other long term (current) drug therapy; D50.9 Iron deficiency anemia, unspecified; N18.9 Chronic kidney disease, unspecified; K59.00 Constipation, unspecified

== ENCOUNTER → 2024-04-02 | Outpatient (REF) | payer MEDICARE, OTHER ==
[~2024-04-02] MED LIST changes: +ACET-897 PO; +CEFD1CAP9 PO; +CEPH500T PO; +DOXY-323 PO; -DOXY-443 PO; +LOSA100T46 PO; +OMEG100011 PO
[2024-04-02 13:11] LABS: HEMATOCRIT 31.9 % (42.0-52.0); HEMOGLOBIN 9.8 g/dl (13.5-17.5); MEAN CORPUSCULAR HEMOGLOBIN 28.8 pg (27.0-33.0); MEAN CORPUSCULAR HGB CONC 30.7 g/dl (32.0-36.5); MEAN CORPUSCULAR VOLUME 93.8 fl (80.0-96.0); PLATELET COUNT, AUTOMATED 298 10^3/uL (150-450); WHITE BLOOD COUNT 6.4 10^3/uL (4.0-10.0)
[2024-04-02 13:41] LABS: CREATININE, URINE 63.7 MG/DL; MAU/CREAT RATIO 65.9 MCG/MG (0.0-30.0)
[2024-04-02 13:43] LABS: ALBUMIN 3.6 G/DL (3.2-5.2); BLOOD UREA NITROGEN 34 MG/DL (9-23); CALCIUM LEVEL 10.1 MG/DL (8.3-10.6); CARBON DIOXIDE LEVEL 28 MMOL/L (20-31); CHLORIDE LEVEL 110 MMOL/L (98-107); CREATININE FOR GFR 1.19 MG/DL (0.70-1.30); GLOMERULAR FILTRATION RATE > 60.0 (>35); GLUCOSE, FASTING 93 MG/DL (74-106); HEMOGLOBIN A1c 5.3 % (4.0-6.0); MAGNESIUM LEVEL 2.3 MG/DL (1.8-2.4); PHOSPHORUS LEVEL 3.3 MG/DL (2.4-5.1); POTASSIUM SERUM 4.8 MMOL/L (3.5-5.1); SODIUM LEVEL 143 MMOL/L (136-145)
[2024-04-02 13:45] LABS: FREE T4 0.91 NG/DL (0.89-1.76)
== END ==
LOC: M LABDRWAD 12:31
PROVIDERS: ATTEND Student in an Organized Health Care Education/Training Program
DX: Z00.00 Encounter for general adult medical examination without abnormal findings (principal); E07.9 Disorder of thyroid, unspecified

== ENCOUNTER → 2024-05-03 | Outpatient (CLI) | payer MEDICARE, OTHER ==
[2024-05-03 12:43] LABS: HEMATOCRIT 31.9 % (42.0-52.0); HEMOGLOBIN 9.8 g/dl (13.5-17.5); MEAN CORPUSCULAR HEMOGLOBIN 28.6 pg (27.0-33.0); MEAN CORPUSCULAR HGB CONC 30.7 g/dl (32.0-36.5); PLATELET COUNT, AUTOMATED 284 10^3/uL (150-450); RED BLOOD COUNT 3.43 10^6/uL (4.30-6.10); WHITE BLOOD COUNT 5.7 10^3/uL (4.0-10.0)
[2024-05-03 13:11] LABS: CALCIUM LEVEL 9.2 MG/DL (8.3-10.6); CREATININE FOR GFR 1.29 MG/DL (0.70-1.30); GLOMERULAR FILTRATION RATE 56.4 (>35); MAGNESIUM LEVEL 2.2 MG/DL (1.8-2.4); POTASSIUM SERUM 4.9 MMOL/L (3.5-5.1)
[2024-05-03 13:12] LABS: PERCENT SATURATION 11.9 % (19.7-50.0)
== END ==
LOC: M PLALAB 09:12
PROVIDERS: ATTEND Student in an Organized Health Care Education/Training Program
DX: Z00.00 Encounter for general adult medical examination without abnormal findings (principal); D50.8 Other iron deficiency anemias; D63.8 Anemia in other chronic diseases classified elsewhere

== ENCOUNTER → 2024-05-24 | Outpatient (CLI) | payer MEDICARE, OTHER ==
[~2024-05-24] MED LIST changes: +METH85CR6 TOP; -MUSCCRE9 TOP
== END ==
LOC: M RAD 11:12
PROVIDERS: ATTEND Physician Assistant
DX: L97.822 Non-pressure chronic ulcer of other part of left lower leg with fat layer exposed (principal); R68.89 Other general symptoms and signs; I70.223 Atherosclerosis of native arteries of extremities with rest pain, bilateral legs; R59.0 Localized enlarged lymph nodes

== ENCOUNTER → 2024-06-11 | Outpatient (CLI) | payer MEDICARE, OTHER ==
[2024-06-11 15:23] LABS: FERRITIN 14.3 NG/ML (10.5-307.3)
== END ==
LOC: M PLALAB 12:58
PROVIDERS: ATTEND Student in an Organized Health Care Education/Training Program
DX: D50.8 Other iron deficiency anemias (principal); D63.8 Anemia in other chronic diseases classified elsewhere

== ENCOUNTER → 2024-08-25 | Outpatient (POV) | payer MEDICARE, OTHER ==
[~2024-08-25] VITALS: Ht 172.7 cm; Wt 109.0 kg
[~2024-08-25] MED LIST changes: -ADV250INH INH; +ADVA1AER9 INH; +ASPI-424 PO; -DOXY-323 PO; +DOXY-441 PO; +FERR325T3 PO; +GABA-1172 PO; -GABA-282 PO; +ROSU20TA86 PO; +TETR15DR16 OP; +VIBE75TA PO; +XARE2.5T PO
[2024-08-25 16:10] VITALS: BP 176/76; O2SAT 98
== END ==
LOC: M IRPOV 15:58
PROVIDERS: ATTEND Radiology Diagnostic Radiology
DX: I70.238 Atherosclerosis of native arteries of right leg with ulceration of other part of lower leg (principal); I70.249 Atherosclerosis of native arteries of left leg with ulceration of unspecified site; H91.3 Deaf nonspeaking, not elsewhere classified; Z79.899 Other long term (current) drug therapy

== ENCOUNTER → 2024-09-06 | Outpatient (CLI) | payer MEDICARE, OTHER ==
[~2024-09-06] VITALS: Ht 172.7 cm; Wt 110.0 kg
[~2024-09-06] MED LIST changes: +ACETAMINOPHEN 325 MG TAB PO PRN; +ADV250INH INH; -ADVA1AER9 INH; +HEPARIN 1,000UNITS/ML 10ML VIAL (FOR RADIOLOGY & DIALYSIS ONLY) As Ordered ONE; +ISOVUE-300 61% 100ML VIAL As Ordered ONE; +LIDOCAINE 1% MDV 20ML VIAL As Ordered ONE; +MIDAZOLAM INJ 2MG/2ML VIAL As Ordered ONE; +NS 1,000 ML IV SCH; +ONDANSETRON 4MG 2ML VIAL IV PRN; +PERCOCET 5MG/325MG TAB As Ordered ONE; +fentaNYL 100 MCG/2 ML INJECTION As Ordered ONE; +hydrALAZINE 20MG/ML 1ML VIAL As Ordered ONE
[2024-09-06 11:05] VITALS: TEMP 96.9
[2024-09-06 11:18] LABS: HEMATOCRIT 35.7 % (42.0-52.0); HEMOGLOBIN 11.1 g/dl (13.5-17.5); MEAN CORPUSCULAR HEMOGLOBIN 28.5 pg (27.0-33.0); MEAN CORPUSCULAR HGB CONC 31.1 g/dl (32.0-36.5); MEAN CORPUSCULAR VOLUME 91.8 fl (80.0-96.0); PLATELET COUNT, AUTOMATED 243 10^3/uL (150-450); RED BLOOD COUNT 3.89 10^6/uL (4.30-6.10)
[2024-09-06 11:28] LABS: INR 1.06; PROTHROMBIN TIME 14.1 SECONDS (12.5-14.5)
[2024-09-06 11:47] LABS: CALCIUM LEVEL 9.4 MG/DL (8.3-10.6); CREATININE FOR GFR 1.39 MG/DL (0.70-1.30); GLOMERULAR FILTRATION RATE 51.7 (>35); POTASSIUM SERUM 4.7 MMOL/L (3.5-5.1)
[2024-09-06 18:00] VITALS: BP 150/58; O2SAT 95
[2024-09-06] MEDS: PERCOCET 5MG/325MG TAB PO PRN (18:00)
== END ==
LOC: M IRPRO 10:34
PROVIDERS: ATTEND Radiology Diagnostic Radiology
DX: I73.9 Peripheral vascular disease, unspecified (principal); Z79.899 Other long term (current) drug therapy
CPT/HCPCS: 36415; 37224; 80048; 85027; 85610; 99152; 99153; C1725; C1760; C1769; C1894; J0360; J2250; J3010; Q9967

== ENCOUNTER → 2024-09-15 | Outpatient (CLI) | payer MEDICARE, OTHER ==
[~2024-09-15] MED LIST changes: -ACETAMINOPHEN 325 MG TAB PO PRN; -ADV250INH INH; +ADVA1AER9 INH; -HEPARIN 1,000UNITS/ML 10ML VIAL (FOR RADIOLOGY & DIALYSIS ONLY) As Ordered ONE; -ISOVUE-300 61% 100ML VIAL As Ordered ONE; -LIDOCAINE 1% MDV 20ML VIAL As Ordered ONE; -MIDAZOLAM INJ 2MG/2ML VIAL As Ordered ONE; -NS 1,000 ML IV SCH; -ONDANSETRON 4MG 2ML VIAL IV PRN; -PERCOCET 5MG/325MG TAB As Ordered ONE; -fentaNYL 100 MCG/2 ML INJECTION As Ordered ONE; -hydrALAZINE 20MG/ML 1ML VIAL As Ordered ONE
[2024-09-15 14:37] LABS: INR 1.25; PARTIAL THROMBOPLASTIN TIME 37.9 SECONDS (24.8-34.2); PROTHROMBIN TIME 15.9 SECONDS (12.5-14.5)
[2024-09-15 15:00] LABS: ALBUMIN 3.3 G/DL (3.2-5.2); BILIRUBIN,DIRECT 0.3 MG/DL (<0.4); BILIRUBIN,TOTAL 0.8 MG/DL (0.3-1.2); TOTAL PROTEIN 7.4 G/DL (5.7-8.2)
[2024-09-16 16:24] LABS: CALCIUM LEVEL 9.4 MG/DL (8.3-10.6); CREATININE FOR GFR 1.3 MG/DL (0.70-1.30); GLOMERULAR FILTRATION RATE 55.9 (>35); PERCENT SATURATION 33.6 % (19.7-50.0); PHOSPHORUS LEVEL 2.9 MG/DL (2.4-5.1); POTASSIUM SERUM 4.9 MMOL/L (3.5-5.1); PSA SCREENING 3.82 NG/ML (< 4.00)
[2024-09-16 16:26] LABS: FERRITIN 39.4 NG/ML (10.5-307.3)
== END ==
LOC: M PLALAB 13:28
PROVIDERS: ATTEND Student in an Organized Health Care Education/Training Program
DX: Z01.818 Encounter for other preprocedural examination (principal); Z79.01 Long term (current) use of anticoagulants

== ENCOUNTER → 2024-09-16 | Outpatient (REF) | payer MEDICARE, OTHER | LOC: M SFHCPLAZ 15:36 | PROVIDERS: ATTEND Family Medicine | DX: Z53.9 Procedure and treatment not carried out, unspecified reason (principal) ==

== ENCOUNTER → 2024-12-06 | Outpatient (REF) ==
[~2024-12-06] MED LIST changes: +AMOX875T2 PO; +ASPI81TA26 PO; +DOXY100T PO; +GABA-1171 PO; +LIDO5TD TD; +PERI12LIQ MT; +SENN-52 PO; +VANI1CRE5 TOP
[2024-12-06 11:20] LABS: HEMATOCRIT 33.8 % (42.0-52.0); HEMOGLOBIN 10.3 g/dl (13.5-17.5); MEAN CORPUSCULAR HEMOGLOBIN 27.9 pg (27.0-33.0); MEAN CORPUSCULAR HGB CONC 30.5 g/dl (32.0-36.5); MEAN CORPUSCULAR VOLUME 91.6 fl (80.0-96.0); PLATELET COUNT, AUTOMATED 360 10^3/uL (150-450); RED BLOOD COUNT 3.69 10^6/uL (4.30-6.10); WHITE BLOOD COUNT 5.7 10^3/uL (4.0-10.0)
[2024-12-06 12:05] LABS: CALCIUM LEVEL 9.2 MG/DL (8.3-10.6); CREATININE FOR GFR 1.95 MG/DL (0.70-1.30); POTASSIUM SERUM 4.2 MMOL/L (3.5-5.1)
== END ==
LOC: SKLAB2 09:23
PROVIDERS: ATTEND Internal Medicine
DX: I10 Essential (primary) hypertension (principal)

== ENCOUNTER → 2024-12-13 | Outpatient (REF) ==
[2024-12-13 14:31] LABS: HEMATOCRIT 31.9 % (42.0-52.0); HEMOGLOBIN 9.7 g/dl (13.5-17.5); MEAN CORPUSCULAR HEMOGLOBIN 28.5 pg (27.0-33.0); MEAN CORPUSCULAR HGB CONC 30.4 g/dl (32.0-36.5); MEAN CORPUSCULAR VOLUME 93.8 fl (80.0-96.0); PLATELET COUNT, AUTOMATED 256 10^3/uL (150-450); WHITE BLOOD COUNT 7.9 10^3/uL (4.0-10.0)
[2024-12-13 15:04] LABS: CALCIUM LEVEL 9.1 MG/DL (8.3-10.6); CREATININE FOR GFR 1.54 MG/DL (0.70-1.30); GLOMERULAR FILTRATION RATE 45.9 (>35); POTASSIUM SERUM 5.3 MMOL/L (3.5-5.1)
== END ==
LOC: SKLAB4 07:00
PROVIDERS: ATTEND Internal Medicine
DX: I10 Essential (primary) hypertension (principal)

== ENCOUNTER → 2025-01-05 | Outpatient (POV) | payer MEDICARE, OTHER ==
[~2025-01-05] VITALS: Ht 172.7 cm; Wt 117.3 kg
[2025-01-05 14:45] VITALS: BP 124/62; O2SAT 95
== END ==
LOC: M IRPOV 14:34
PROVIDERS: ATTEND Radiology Diagnostic Radiology
DX: I70.211 Atherosclerosis of native arteries of extremities with intermittent claudication, right leg (principal); I70.248 Atherosclerosis of native arteries of left leg with ulceration of other part of lower leg; Z95.828 Presence of other vascular implants and grafts

== ENCOUNTER 2025-01-12 11:11 | Inpatient (IN) | payer MEDICARE, OTHER ==
[2025-01-12] VITALS (9 sets, daily range): BP systolic 107–133; BP diastolic 49–66; TEMP 96.3–97.5; O2SAT 95–98
[~2025-01-12] VITALS: Ht 172.7 cm; Wt 119.0 kg
[~2025-01-12 11:11] MED LIST changes: -MILKSUS7 PO; +NYST-13 EXT; -NYST0.1C EXT; -SUCR1TA PO
[2025-01-12] MEDS: PANTOPRAZOLE SODIUM 40 MG in D5W 50 ML IV SCH (12:36)
[2025-01-12] MEDS: PANTOPRAZOLE 40MG VIAL IV ONE (12:36)
[2025-01-12] MEDS ORDERED: HOME MED LIST COMPLETE! XX SCH (15:20)
[2025-01-12] MEDS ORDERED: MILKSUS7 PO (15:20)
[2025-01-12] MEDS ORDERED: TORS20TA2 PO (15:20)
[2025-01-12] MEDS ORDERED: VANI1CRE5 TOP (15:20)
[2025-01-12] MEDS ORDERED: GABA-1171 PO (15:20)
[2025-01-12] MEDS ORDERED: ACET1TAB55 PO (15:20)
[2025-01-12 20:28] LABS: HEMATOCRIT 24.6 % (42.0-52.0); HEMOGLOBIN 7.8 g/dl (13.5-17.5); MEAN CORPUSCULAR HEMOGLOBIN 28.6 pg (27.0-33.0); MEAN CORPUSCULAR HGB CONC 31.7 g/dl (32.0-36.5); MEAN CORPUSCULAR VOLUME 90.1 fl (80.0-96.0); PLATELET COUNT, AUTOMATED 247 10^3/uL (150-450); RED BLOOD COUNT 2.73 10^6/uL (4.30-6.10); WHITE BLOOD COUNT 6.9 10^3/uL (4.0-10.0)
[2025-01-12] MEDS: ADVAIR HFA 115/21MCG INHALER INH SCH (20:30)
[2025-01-12] MEDS: ALBUTEROL 90 MCG/ACT 8GM HFA INHALER INH SCH (20:30)
[2025-01-12] MEDS: ROSUVASTATIN 10 MG TAB (CRESTOR) PO SCH (20:40)
[2025-01-12] MEDS: GABAPENTIN 100 MG CAP PO SCH (20:40)
[2025-01-12 21:01] LABS: PERCENT SATURATION 63.8 % (19.7-50.0)
[2025-01-12 21:04] LABS: FERRITIN 12.8 NG/ML (10.5-307.3)
[2025-01-12] MEDS: LATANOPROST 0.005% OPHTH SOLN 2.5 ML OU SCH (21:07)
[2025-01-12] MEDS: VANICREAM MOISTURIZING SKIN CREAM 113GM TUBE TOP SCH (22:58)
[2025-01-13 04:42] VITALS: BP 110/62; TEMP 97.5; O2SAT 96
[2025-01-13 07:52] LABS: HEMATOCRIT 25.8 % (42.0-52.0); HEMOGLOBIN 8.1 g/dl (13.5-17.5); MEAN CORPUSCULAR HGB CONC 31.4 g/dl (32.0-36.5); MEAN CORPUSCULAR VOLUME 89.3 fl (80.0-96.0); PLATELET COUNT, AUTOMATED 193 10^3/uL (150-450); RED BLOOD COUNT 2.89 10^6/uL (4.30-6.10); WHITE BLOOD COUNT 6.2 10^3/uL (4.0-10.0)
[2025-01-13 08:08] LABS: INR 1.12; PARTIAL THROMBOPLASTIN TIME 24.4 SECONDS (24.8-34.2); PROTHROMBIN TIME 14.7 SECONDS (12.5-14.5)
[2025-01-13 08:14] LABS: ALBUMIN 3.1 G/DL (3.2-5.2); BILIRUBIN,TOTAL 1.3 MG/DL (0.3-1.2); CALCIUM LEVEL 8.8 MG/DL (8.3-10.6); CREATININE FOR GFR 1.33 MG/DL (0.70-1.30); GLOMERULAR FILTRATION RATE 54.4 (>35); POTASSIUM SERUM 4.7 MMOL/L (3.5-5.1); TOTAL PROTEIN 6.9 G/DL (5.7-8.2)
[2025-01-13] MEDS: amLODIPine 5 MG TAB PO SCH (09:00)
[2025-01-13] MEDS: OMEGA-3 1000MG CAPSULE PO SCH (09:44)
[2025-01-13] MEDS: PANTOPRAZOLE 40MG VIAL IV SCH (10:05)
[2025-01-13] MEDS: SUCRALFATE 1 GM TAB PO SCH (12:01)
[2025-01-13 12:25] VITALS: BP 115/60; TEMP 97.5; O2SAT 95
[2025-01-13] MEDS ORDERED: ALBUTEROL 90 MCG/ACT 8GM HFA INHALER INH PRN (14:00)
[2025-01-13] MEDS: IPRATROPIUM 0.5MG/ALBUTEROL 2.5MG INH SOL UD 3ML NEB SCH (14:07)
[2025-01-13 20:12] VITALS: BP 120/47; TEMP 97.7; O2SAT 92
[2025-01-13 20:19] LABS: HEMATOCRIT 24.9 % (42.0-52.0); HEMOGLOBIN 7.8 g/dl (13.5-17.5)
[2025-01-13 23:08] VITALS: BP 118/49; TEMP 97.7; O2SAT 95
[2025-01-14 05:33] VITALS: BP 132/66; TEMP 97.5; O2SAT 93
[2025-01-14 06:11] LABS: BASO % 0.6 % (0.0-1.0); EOS # 0.3 10^3/uL (0.0-0.5); EOS % 4.5 % (0.0-3.0); HEMOGLOBIN 8.1 g/dl (13.5-17.5); LYMPH # 0.7 10^3/uL (1.5-5.0); MEAN CORPUSCULAR HGB CONC 31.2 g/dl (32.0-36.5); MONO # 0.7 10^3/uL (0.0-0.8); MONO % 11.6 % (2.0-8.0); NEUTROPHILS # 4.5 10^3/uL (1.5-8.5); PLATELET COUNT, AUTOMATED 232 10^3/uL (150-450); RED BLOOD COUNT 2.89 10^6/uL (4.30-6.10); WHITE BLOOD COUNT 6.2 10^3/uL (4.0-10.0)
[2025-01-14 06:41] LABS: CALCIUM LEVEL 8.6 MG/DL (8.3-10.6); CREATININE FOR GFR 1.28 MG/DL (0.70-1.30); GLOMERULAR FILTRATION RATE 54.9 (>35); MAGNESIUM LEVEL 2.5 MG/DL (1.8-2.4); PHOSPHORUS LEVEL 3.5 MG/DL (2.4-5.1); POTASSIUM SERUM 4.4 MMOL/L (3.5-5.1)
[2025-01-14 12:00] VITALS: BP 100/55; TEMP 97.5
[2025-01-14] MEDS ORDERED: LIDOCAINE 2% 100MG/5ML SDV (FOR ANES.) As Ordered ONE (14:24)
[2025-01-14] MEDS ORDERED: propofoL 200 MG/20 ML VIAL As Ordered ONE (14:24)
[2025-01-14] MEDS ORDERED: fentaNYL 100 MCG/2 ML INJECTION As Ordered ONE (14:24)
[2025-01-14 15:25] VITALS: BP 117/63; TEMP 97.5; O2SAT 94
[2025-01-14 19:50] VITALS: BP 112/45; TEMP 98.1; O2SAT 96
[2025-01-14] MEDS: RIVAROXABAN 2.5MG TABLET (XARELTO) PO SCH (20:00)
[2025-01-14 23:53] VITALS: BP 122/54; TEMP 97.9; O2SAT 94
[2025-01-15 04:21] VITALS: BP 110/47; TEMP 97.2; O2SAT 95
[2025-01-15 06:34] LABS: BASO % 0.7 % (0.0-1.0); EOS # 0.3 10^3/uL (0.0-0.5); EOS % 4.7 % (0.0-3.0); HEMATOCRIT 25.7 % (42.0-52.0); HEMOGLOBIN 7.8 g/dl (13.5-17.5); LYMPH # 0.7 10^3/uL (1.5-5.0); LYMPH % 12.1 % (24.0-44.0); MEAN CORPUSCULAR HEMOGLOBIN 28.5 pg (27.0-33.0); MEAN CORPUSCULAR HGB CONC 30.4 g/dl (32.0-36.5); MEAN CORPUSCULAR VOLUME 93.8 fl (80.0-96.0); MONO # 0.8 10^3/uL (0.0-0.8); MONO % 13.7 % (2.0-8.0); NEUTROPHILS # 3.9 10^3/uL (1.5-8.5); NEUTROPHILS % 68.4 % (36.0-66.0); PLATELET COUNT, AUTOMATED 209 10^3/uL (150-450); RED BLOOD COUNT 2.74 10^6/uL (4.30-6.10); WHITE BLOOD COUNT 5.7 10^3/uL (4.0-10.0)
[2025-01-15 06:56] LABS: ALBUMIN 2.8 G/DL (3.2-5.2); CALCIUM LEVEL 8.3 MG/DL (8.3-10.6); CREATININE FOR GFR 1.2 MG/DL (0.70-1.30); GLOMERULAR FILTRATION RATE 59.3 (>35); MAGNESIUM LEVEL 2.5 MG/DL (1.8-2.4); PHOSPHORUS LEVEL 3.3 MG/DL (2.4-5.1); POTASSIUM SERUM 4.2 MMOL/L (3.5-5.1)
[2025-01-15 08:00] VITALS: BP 141/71; TEMP 97.5
[2025-01-15] MEDS: PANTOPRAZOLE 40MG TAB (PROTONIX) PO SCH (08:48)
[2025-01-15 12:00] VITALS: BP 137/51; TEMP 97.5
[2025-01-15] MEDS: TORSEMIDE 20 MG TAB PO ONE (12:40)
[2025-01-15] MEDS ORDERED: IPRATROPIUM 0.5MG/ALBUTEROL 2.5MG INH SOL UD 3ML NEB PRN (12:50)
[2025-01-15 16:00] VITALS: BP 163/55; TEMP 97.3
[2025-01-15 19:20] VITALS: BP 157/56; TEMP 97.7; O2SAT 94
[2025-01-16 04:26] VITALS: BP 136/58; TEMP 97.3; O2SAT 96
[2025-01-16 06:26] LABS: BASO % 0.6 % (0.0-1.0); EOS # 0.4 10^3/uL (0.0-0.5); EOS % 5.5 % (0.0-3.0); HEMATOCRIT 26.2 % (42.0-52.0); HEMOGLOBIN 8.2 g/dl (13.5-17.5); LYMPH # 0.8 10^3/uL (1.5-5.0); MEAN CORPUSCULAR HEMOGLOBIN 28.4 pg (27.0-33.0); MEAN CORPUSCULAR HGB CONC 31.3 g/dl (32.0-36.5); MEAN CORPUSCULAR VOLUME 90.7 fl (80.0-96.0); MONO # 0.8 10^3/uL (0.0-0.8); MONO % 13.1 % (2.0-8.0); NEUTROPHILS # 4.4 10^3/uL (1.5-8.5); NEUTROPHILS % 68.6 % (36.0-66.0); PLATELET COUNT, AUTOMATED 242 10^3/uL (150-450); RED BLOOD COUNT 2.89 10^6/uL (4.30-6.10); WHITE BLOOD COUNT 6.4 10^3/uL (4.0-10.0)
[2025-01-16 06:47] LABS: CALCIUM LEVEL 8.6 MG/DL (8.3-10.6); CREATININE FOR GFR 1.32 MG/DL (0.70-1.30); GLOMERULAR FILTRATION RATE 52.9 (>35); MAGNESIUM LEVEL 2.3 MG/DL (1.8-2.4); PHOSPHORUS LEVEL 3.6 MG/DL (2.4-5.1); POTASSIUM SERUM 4.4 MMOL/L (3.5-5.1)
[2025-01-16 08:00] VITALS: BP 119/61; TEMP 97.7
[2025-01-16] MEDS: TORSEMIDE 20 MG TAB PO SCH (08:49)
[2025-01-16] MEDS ORDERED: ALBUTEROL 90 MCG/ACT 8GM HFA INHALER INH PRN (09:20)
[2025-01-16 12:00] VITALS: BP 120/50; TEMP 97.5
[2025-01-16] MEDS: ACETAMINOPHEN 325 MG TAB PO PRN (12:13)
[2025-01-16 16:00] VITALS: BP 123/51; TEMP 97.3
[2025-01-16 20:15] VITALS: BP 125/75; TEMP 97.2; O2SAT 99
[2025-01-17 00:30] VITALS: BP 119/56; TEMP 97.5; O2SAT 95
[2025-01-17 03:54] VITALS: BP 115/57; TEMP 97.8; O2SAT 98
[2025-01-17 07:01] LABS: BASO # 0.1 10^3/uL (0.0-0.2); BASO % 0.9 % (0.0-1.0); EOS # 0.4 10^3/uL (0.0-0.5); EOS % 5.3 % (0.0-3.0); HEMOGLOBIN 8.3 g/dl (13.5-17.5); LYMPH # 0.7 10^3/uL (1.5-5.0); LYMPH % 10.2 % (24.0-44.0); MEAN CORPUSCULAR HEMOGLOBIN 28.4 pg (27.0-33.0); MEAN CORPUSCULAR HGB CONC 30.7 g/dl (32.0-36.5); MEAN CORPUSCULAR VOLUME 92.5 fl (80.0-96.0); MONO # 0.8 10^3/uL (0.0-0.8); MONO % 10.9 % (2.0-8.0); NEUTROPHILS % 72.4 % (36.0-66.0); PLATELET COUNT, AUTOMATED 226 10^3/uL (150-450); RED BLOOD COUNT 2.92 10^6/uL (4.30-6.10)
[2025-01-17 07:27] LABS: ALBUMIN 3.2 G/DL (3.2-5.2); CALCIUM LEVEL 8.6 MG/DL (8.3-10.6); CREATININE FOR GFR 1.28 MG/DL (0.70-1.30); GLOMERULAR FILTRATION RATE 54.9 (>35); MAGNESIUM LEVEL 2.2 MG/DL (1.8-2.4); PHOSPHORUS LEVEL 3.8 MG/DL (2.4-5.1); POTASSIUM SERUM 4.2 MMOL/L (3.5-5.1)
[2025-01-17 08:00] VITALS: BP 124/60; TEMP 98.6; O2SAT 95
[2025-01-17 08:17] VITALS: BP 124/64
[2025-01-17 09:50] VITALS: BP 124/66; TEMP 98.6; O2SAT 95
[2025-01-17] MEDS ORDERED: SUCR1TA PO (11:19)
[2025-01-17] MEDS ORDERED: PANT40TA29 PO (12:23)
[2025-01-17 14:53] LABS: SOLUBLE TRANSFERRIN RECEPTOR 1.97 mg/L (0.76-1.76)
== END 2025-01-17 15:25 | disposition home health service (06) | DRG 813 ==
LOC: EDBD 11:11 → M ED 11:11 → M ED INP 12:24 → M MS5PR 15:53
PROVIDERS: ADMIT Internal Medicine; ATTEND Internal Medicine
PROC: 30233N1 Transfusion of Nonautologous Red Blood Cells into Peripheral Vein, Percutaneous Approach (ICD-10-PCS; principal; 2025-01-12)
PROC: 0DB68ZX Excision of Stomach, Via Natural or Artificial Opening Endoscopic, Diagnostic (ICD-10-PCS; 2025-01-14)
DX: D68.32 Hemorrhagic disorder due to extrinsic circulating anticoagulants (principal); D62 Acute posthemorrhagic anemia; I50.32 Chronic diastolic (congestive) heart failure; I13.0 Hypertensive heart and chronic kidney disease with heart failure and stage 1 through stage 4 chronic kidney disease, or unspecified chronic kidney disease; K29.60 Other gastritis without bleeding; J44.9 Chronic obstructive pulmonary disease, unspecified; N18.31 Chronic kidney disease, stage 3a; E11.22 Type 2 diabetes mellitus with diabetic chronic kidney disease; E11.51 Type 2 diabetes mellitus with diabetic peripheral angiopathy without gangrene; K21.9 Gastro-esophageal reflux disease without esophagitis; D50.9 Iron deficiency anemia, unspecified; E78.5 Hyperlipidemia, unspecified; G47.33 Obstructive sleep apnea (adult) (pediatric); H90.0 Conductive hearing loss, bilateral; Z79.899 Other long term (current) drug therapy; T39.395A Adverse effect of other nonsteroidal anti-inflammatory drugs [NSAID], initial encounter

== ENCOUNTER → 2025-01-12 | Outpatient (REF) ==
[~2025-01-12] MED LIST changes: +MILKSUS7 PO
[2025-01-12 09:44] LABS: HEMATOCRIT 20.6 % (42.0-52.0); HEMOGLOBIN 6.1 g/dl (13.5-17.5)
== END ==
LOC: SKLAB4 07:55
PROVIDERS: ATTEND Internal Medicine
DX: D64.9 Anemia, unspecified (principal)

== ENCOUNTER → 2025-01-12 | Outpatient (REF) ==
[~2025-01-12] MED LIST changes: -NYST-13 EXT; +NYST0.1C EXT; +SUCR1TA PO
[2025-01-12 07:32] LABS: MEAN CORPUSCULAR HEMOGLOBIN 27.8 pg (27.0-33.0); MEAN CORPUSCULAR HGB CONC 29.7 g/dl (32.0-36.5); MEAN CORPUSCULAR VOLUME 93.4 fl (80.0-96.0); PLATELET COUNT, AUTOMATED 240 10^3/uL (150-450); RED BLOOD COUNT 1.98 10^6/uL (4.30-6.10); WHITE BLOOD COUNT 6.3 10^3/uL (4.0-10.0)
[2025-01-12 07:40] LABS: HEMATOCRIT 18.5 % (42.0-52.0); HEMOGLOBIN 5.5 g/dl (13.5-17.5)
[2025-01-12 07:58] LABS: CALCIUM LEVEL 8.5 MG/DL (8.3-10.6); CREATININE FOR GFR 1.48 MG/DL (0.70-1.30); GLOMERULAR FILTRATION RATE 48.1 (>35); POTASSIUM SERUM 4.5 MMOL/L (3.5-5.1)
== END ==
LOC: SKLAB4 07:00
PROVIDERS: ATTEND Internal Medicine
DX: I50.32 Chronic diastolic (congestive) heart failure (principal)

== ENCOUNTER → 2025-02-09 | Outpatient (CLI) | payer MEDICARE, OTHER ==
[~2025-02-09] MED LIST changes: -ASPI-310 PO; +ASPI-730 PO; +MILKSUS7 PO; -NYST-13 EXT; +NYST0.1C EXT; +SUCR1TA PO
[2025-02-09 12:48] LABS: HEMATOCRIT 30.7 % (42.0-52.0); HEMOGLOBIN 9.4 g/dl (13.5-17.5); MEAN CORPUSCULAR HEMOGLOBIN 28.1 pg (27.0-33.0); MEAN CORPUSCULAR HGB CONC 30.6 g/dl (32.0-36.5); MEAN CORPUSCULAR VOLUME 91.6 fl (80.0-96.0); PLATELET COUNT, AUTOMATED 324 10^3/uL (150-450); RED BLOOD COUNT 3.35 10^6/uL (4.30-6.10); WHITE BLOOD COUNT 7.8 10^3/uL (4.0-10.0)
[2025-02-09 13:00] LABS: INR 1.24; PARTIAL THROMBOPLASTIN TIME 38.9 SECONDS (24.8-34.2); PROTHROMBIN TIME 15.9 SECONDS (12.5-14.5)
[2025-02-09 13:01] LABS: ALBUMIN 3.4 G/DL (3.2-5.2); CALCIUM LEVEL 8.8 MG/DL (8.3-10.6); CREATININE FOR GFR 1.36 MG/DL (0.70-1.30); MAGNESIUM LEVEL 2.2 MG/DL (1.8-2.4); PHOSPHORUS LEVEL 3.1 MG/DL (2.4-5.1); POTASSIUM SERUM 4.5 MMOL/L (3.5-5.1)
== END ==
LOC: M PLALAB 10:42
PROVIDERS: ATTEND Student in an Organized Health Care Education/Training Program
DX: I87.2 Venous insufficiency (chronic) (peripheral) (principal); D50.8 Other iron deficiency anemias; I73.9 Peripheral vascular disease, unspecified

== ENCOUNTER → 2025-02-09 | Outpatient (REF) | payer MEDICARE, OTHER ==
[~2025-02-09] MED LIST changes: +ASPI-310 PO; -ASPI-730 PO
== END ==
LOC: M SFHCPLAZ 10:01
PROVIDERS: ATTEND Family Medicine
DX: Z53.21 Procedure and treatment not carried out due to patient leaving prior to being seen by health care provider (principal); D50.8 Other iron deficiency anemias; I73.9 Peripheral vascular disease, unspecified

== ENCOUNTER → 2025-02-17 | Outpatient (CLI) | payer MEDICARE, OTHER | LOC: M CARPUL 10:06 | PROVIDERS: ATTEND Student in an Organized Health Care Education/Training Program | DX: I10 Essential (primary) hypertension (principal); I87.2 Venous insufficiency (chronic) (peripheral); I36.1 Nonrheumatic tricuspid (valve) insufficiency ==

== ENCOUNTER → 2025-02-22 | Outpatient (CLI) | payer MEDICARE, OTHER ==
[~2025-02-22] VITALS: Ht 172.7 cm; Wt 109.0 kg
[~2025-02-22] MED LIST changes: +ALBUTEROL SULFATE 2.5MG/0.5ML INH CONCENTRATE NEB SOLN As Ordered ONE; -ASPI-310 PO; +ASPI-730 PO; +LR 1,000 ML IV SCH; +MIDAZOLAM INJ 2MG/2ML VIAL As Ordered ONE; +NS (Normal Saline) 0.9% 1,000 ML IV SCH; +ONDANSETRON 4MG 2ML VIAL As Ordered ONE; +ONDANSETRON 4MG 2ML VIAL IV PRN; +PERCOCET 5MG/325MG TAB PO PRN; +PROTAMINE SULF 50MG 5ML VIAL As Ordered ONE; +dexmedeTOMIDine (4MCG/ML)200MCG/50ML BTL (PRECEDEX) As Ordered ONE; +propofoL 200 MG/20 ML VIAL As Ordered ONE
[2025-02-22 07:52] VITALS: TEMP 97.8
[2025-02-22] MEDS: HEPARIN 1,000UNITS/ML 10ML VIAL (FOR RADIOLOGY & DIALYSIS ONLY) IV PRN (12:44)
[2025-02-22] MEDS: ISOVUE-300 61% 100ML VIAL IV SCH (12:48)
[2025-02-22] MEDS: LIDOCAINE 1% MDV 20ML VIAL SC SCH (12:48)
[2025-02-22] MEDS: PROTAMINE SULF 50MG 5ML VIAL IV STA (12:48)
[2025-02-22] MEDS: ACETAMINOPHEN 325 MG TAB PO PRN (14:31)
[2025-02-22 15:20] VITALS: BP 99/54; O2SAT 97
== END ==
LOC: M IRPRO 07:38
PROVIDERS: ATTEND Radiology Diagnostic Radiology
DX: I70.291 Other atherosclerosis of native arteries of extremities, right leg (principal); M25.571 Pain in right ankle and joints of right foot; Z95.828 Presence of other vascular implants and grafts
CPT/HCPCS: 37226; 75710; 93926; C1874; C1886; C1894; C2623; J2250; J2405; J2720; Q9967

== ENCOUNTER → 2025-04-26 | Outpatient (CLI) | payer MEDICARE, OTHER ==
[~2025-04-26] MED LIST changes: -ALBUTEROL SULFATE 2.5MG/0.5ML INH CONCENTRATE NEB SOLN As Ordered ONE; +ISOVUE-370 76% 100 ML VIAL As Ordered ONE; -LR 1,000 ML IV SCH; -MIDAZOLAM INJ 2MG/2ML VIAL As Ordered ONE; -NS (Normal Saline) 0.9% 1,000 ML IV SCH; -ONDANSETRON 4MG 2ML VIAL As Ordered ONE; -ONDANSETRON 4MG 2ML VIAL IV PRN; -PERCOCET 5MG/325MG TAB PO PRN; -PRAV40TA2 PO; +PRAV40TA85 PO; -PROTAMINE SULF 50MG 5ML VIAL As Ordered ONE; -dexmedeTOMIDine (4MCG/ML)200MCG/50ML BTL (PRECEDEX) As Ordered ONE; -propofoL 200 MG/20 ML VIAL As Ordered ONE
== END ==
LOC: M RAD 11:04
PROVIDERS: ATTEND Radiology Diagnostic Radiology
DX: I73.9 Peripheral vascular disease, unspecified (principal)
CPT/HCPCS: 75635; Q9967

== ENCOUNTER → 2025-05-02 | Outpatient (CLI) | payer MEDICARE, OTHER ==
[~2025-05-02] MED LIST changes: +AMLO1TAB25 PO; -ISOVUE-370 76% 100 ML VIAL As Ordered ONE
== END ==
LOC: M RAD 09:05
PROVIDERS: ATTEND Radiology Diagnostic Radiology
DX: I83.028 Varicose veins of left lower extremity with ulcer other part of lower leg (principal); L97.829 Non-pressure chronic ulcer of other part of left lower leg with unspecified severity; I73.9 Peripheral vascular disease, unspecified

== ENCOUNTER 2025-05-11 20:36 | Inpatient (IN) | payer MEDICARE, OTHER ==
[~2025-05-11] VITALS: Ht 157.5 cm; Wt 111.3 kg
[~2025-05-11 20:36] MED LIST changes: -AMLO1TAB25 PO
[2025-05-11] MEDS ORDERED: AMLO1TAB25 PO (23:06)
[2025-05-11] MEDS ORDERED: HOME MED LIST COMPLETE! XX SCH (23:10)
[2025-05-11 23:35] LABS: CALCIUM LEVEL 8.5 MG/DL (8.3-10.6); CARBON DIOXIDE LEVEL 24.0 MMOL/L (20-31); CHLORIDE LEVEL 110.0 MMOL/L (98-107); CREATININE FOR GFR 1.47 MG/DL (0.70-1.30); GLOMERULAR FILTRATION RATE 46.2 (>35); POTASSIUM SERUM 5.2 MMOL/L (3.5-5.1); SODIUM LEVEL 147.0 MMOL/L (136-145)
[2025-05-12] VITALS (10 sets, daily range): BP systolic 118–155; BP diastolic 59–88; TEMP 96.9–97.7; O2SAT 92–95
[2025-05-12] LABS: INR 1.07
[2025-05-12 00:12] LABS: BASO # 0.1 10^3/uL (0.0-0.2); BASO % 0.8 % (0.0-1.0); EOS # 0.5 10^3/uL (0.0-0.5); EOS % 5.7 % (0.0-3.0); LYMPH # 0.8 10^3/uL (1.5-5.0); LYMPH % 9.7 % (24.0-44.0); MONO # 0.9 10^3/uL (0.0-0.8); MONO % 11.8 % (2.0-8.0); NEUTROPHILS # 5.6 10^3/uL (1.5-8.5); NEUTROPHILS % 71.2 % (36.0-66.0); PLATELET COUNT, AUTOMATED 274 10^3/uL (150-450)
[2025-05-12] MEDS ORDERED: ISOVUE-370 76% 100 ML VIAL As Ordered ONE (02:24)
[2025-05-12] MEDS: NS (Normal Saline) 0.9% 1,000 ML IV ONE (02:40)
[2025-05-12] MEDS ORDERED: MAALOX 30 ML SUSP *UDC PO PRN (02:40)
[2025-05-12] MEDS ORDERED: MOM 30 ML SUSPENSION UDC PO PRN (02:40)
[2025-05-12] MEDS ORDERED: GLUCAGON INJ 1 MG VIAL SC PRN (02:40)
[2025-05-12] MEDS ORDERED: ACETAMINOPHEN 325 MG TAB PO PRN (02:40)
[2025-05-12] MEDS ORDERED: GLUCOSE 4 GM CHEW PO PRN (02:40)
[2025-05-12] MEDS ORDERED: DEXTROSE 50% 50 ML SYRINGE IV PRN (02:40)
[2025-05-12 02:49] LABS: ALT/SGPT 12.0 U/L (7.0-40); AST/SGOT 16.0 U/L (<34); MAGNESIUM LEVEL 2.2 MG/DL (1.8-2.4)
[2025-05-12] MEDS: INSULIN LISPRO (NovoLOG) PER UNIT SC SCH (07:30)
[2025-05-12] MEDS: DOCUSATE SODIUM 100 MG CAPSULE PO SCH (07:40)
[2025-05-12] MEDS: PANTOPRAZOLE 40MG VIAL IV SCH (07:40)
[2025-05-12 08:09] LABS: PLATELET COUNT, AUTOMATED 230 10^3/uL (150-450)
[2025-05-12 08:39] LABS: CALCIUM LEVEL 8.5 MG/DL (8.3-10.6); CARBON DIOXIDE LEVEL 26.0 MMOL/L (20-31); CHLORIDE LEVEL 110.0 MMOL/L (98-107); CREATININE FOR GFR 1.35 MG/DL (0.70-1.30); GLOMERULAR FILTRATION RATE 51.1 (>35); POTASSIUM SERUM 4.5 MMOL/L (3.5-5.1); SODIUM LEVEL 147.0 MMOL/L (136-145)
[2025-05-12 08:40] LABS: CALCIUM LEVEL 8.4 MG/DL (8.3-10.6); CARBON DIOXIDE LEVEL 26.0 MMOL/L (20-31); CHLORIDE LEVEL 111.0 MMOL/L (98-107); CREATININE FOR GFR 1.35 MG/DL (0.70-1.30); GLOMERULAR FILTRATION RATE 51.1 (>35); POTASSIUM SERUM 4.6 MMOL/L (3.5-5.1); SODIUM LEVEL 147.0 MMOL/L (136-145)
[2025-05-12 12:56] LABS: CALCIUM LEVEL 8.5 MG/DL (8.3-10.6); CARBON DIOXIDE LEVEL 28.0 MMOL/L (20-31); CHLORIDE LEVEL 110.0 MMOL/L (98-107); CREATININE FOR GFR 1.33 MG/DL (0.70-1.30); GLOMERULAR FILTRATION RATE 52.1 (>35); POTASSIUM SERUM 4.3 MMOL/L (3.5-5.1); SODIUM LEVEL 145.0 MMOL/L (136-145)
[2025-05-12] MEDS ORDERED: INSULIN LISPRO (NovoLOG) PER UNIT SC SCH (21:00)
== END 2025-05-12 17:40 | disposition home or self-care (01) | DRG 812 ==
LOC: M ED 20:36 → M ED INP 05-12 02:40
PROVIDERS: ADMIT Internal Medicine; ATTEND Student in an Organized Health Care Education/Training Program
PROC: 30233N1 Transfusion of Nonautologous Red Blood Cells into Peripheral Vein, Percutaneous Approach (ICD-10-PCS; principal; 2025-05-12)
DX: D50.0 Iron deficiency anemia secondary to blood loss (chronic) (principal); I13.0 Hypertensive heart and chronic kidney disease with heart failure and stage 1 through stage 4 chronic kidney disease, or unspecified chronic kidney disease; E87.0 Hyperosmolality and hypernatremia; I50.9 Heart failure, unspecified; E78.5 Hyperlipidemia, unspecified; J44.9 Chronic obstructive pulmonary disease, unspecified; E11.51 Type 2 diabetes mellitus with diabetic peripheral angiopathy without gangrene; N18.9 Chronic kidney disease, unspecified; E11.22 Type 2 diabetes mellitus with diabetic chronic kidney disease; I87.8 Other specified disorders of veins; Z87.891 Personal history of nicotine dependence; Z79.899 Other long term (current) drug therapy; Z79.82 Long term (current) use of aspirin; G47.33 Obstructive sleep apnea (adult) (pediatric)

== ENCOUNTER → 2025-05-11 | Outpatient (CLI) | payer MEDICARE, OTHER ==
[2025-05-11 18:29] LABS: BASO # 0.1 10^3/uL (0.0-0.2); BASO % 1.0 % (0.0-1.0); EOS # 0.4 10^3/uL (0.0-0.5); EOS % 4.4 % (0.0-3.0); LYMPH # 0.7 10^3/uL (1.5-5.0); LYMPH % 8.3 % (24.0-44.0); MONO # 1.0 10^3/uL (0.0-0.8); MONO % 12.1 % (2.0-8.0); NEUTROPHILS # 6.1 10^3/uL (1.5-8.5); NEUTROPHILS % 73.6 % (36.0-66.0); PLATELET COUNT, AUTOMATED 301 10^3/uL (150-450)
[2025-05-11 18:48] LABS: ERYTHROCYTE SEDIMENTATION RATE 36 mm/hr (0-20)
[2025-05-11 19:08] LABS: ALT/SGPT 12.0 U/L (7.0-40); AST/SGOT 14.0 U/L (<34); CALCIUM LEVEL 9.1 MG/DL (8.3-10.6); CARBON DIOXIDE LEVEL 24.0 MMOL/L (20-31); CHLORIDE LEVEL 109.0 MMOL/L (98-107); CREATININE FOR GFR 1.54 MG/DL (0.70-1.30); GLOMERULAR FILTRATION RATE 43.7 (>35); POTASSIUM SERUM 5.3 MMOL/L (3.5-5.1); SODIUM LEVEL 147.0 MMOL/L (136-145)
== END ==
LOC: M PLALAB 15:04
PROVIDERS: ATTEND Student in an Organized Health Care Education/Training Program
DX: D50.8 Other iron deficiency anemias (principal)

== ENCOUNTER → 2025-05-31 | Outpatient (CLI) | payer MEDICARE, OTHER ==
[~2025-05-31] MED LIST changes: +AMLO1TAB25 PO; +IBUPROFEN 600 MG TAB PO PRN; +NS (Normal Saline) 0.9% 1,000 ML IV SCH; +SODIUM CHLORIDE 0.9% 1000 ML XX SCH
[2025-05-31 07:30] VITALS: TEMP 98.7
[2025-05-31] MEDS: SODIUM TETRADECYL SULFATE (1%) 20MG/2ML VIAL (SOTRADECOL) IV SCH (09:50)
[2025-05-31] MEDS: LIDOCAINE 1% MDV 20 ML VIAL SC SCH (09:51)
[2025-05-31] MEDS: MIDAZOLAM INJ 2 MG/2 ML VIAL IV PRN (09:51)
[2025-05-31 10:30] VITALS: BP 136/66; O2SAT 96
== END ==
LOC: M IRPRO 07:26
PROVIDERS: ATTEND Radiology Diagnostic Radiology
DX: I83.028 Varicose veins of left lower extremity with ulcer other part of lower leg (principal)
CPT/HCPCS: 36468; 36482; 99152; 99153; C1769; J2250; J3010

== ENCOUNTER → 2025-06-02 | Outpatient (CLI) | payer MEDICARE, OTHER ==
[~2025-06-02] MED LIST changes: -IBUPROFEN 600 MG TAB PO PRN; -NS (Normal Saline) 0.9% 1,000 ML IV SCH; -SODIUM CHLORIDE 0.9% 1000 ML XX SCH
== END ==
LOC: M RAD 12:44
PROVIDERS: ATTEND Radiology Diagnostic Radiology
DX: I87.2 Venous insufficiency (chronic) (peripheral) (principal); I82.812 Embolism and thrombosis of superficial veins of left lower extremity

== ENCOUNTER → 2025-06-27 | Outpatient (REF) | payer MEDICARE, OTHER | LOC: M SFHCPLAZ 17:45 | PROVIDERS: ATTEND Student in an Organized Health Care Education/Training Program | DX: D64.9 Anemia, unspecified (principal) ==

== ENCOUNTER → 2025-06-28 | Outpatient (REF) | payer MEDICARE, OTHER ==
[2025-06-28 15:34] LABS: BASO # 0.1 10^3/uL (0.0-0.2); BASO % 1.6 % (0.0-1.0); EOS # 0.5 10^3/uL (0.0-0.5); EOS % 6.4 % (0.0-3.0); LYMPH # 1.3 10^3/uL (1.5-5.0); LYMPH % 18.5 % (24.0-44.0); MONO # 0.6 10^3/uL (0.0-0.8); MONO % 9.1 % (2.0-8.0); NEUTROPHILS # 4.5 10^3/uL (1.5-8.5); NEUTROPHILS % 63.5 % (36.0-66.0)
[2025-06-28 15:57] LABS: ALT/SGPT 11.0 U/L (7.0-40); AST/SGOT 14.0 U/L (<34); CALCIUM LEVEL 9.3 MG/DL (8.3-10.6); CARBON DIOXIDE LEVEL 27.0 MMOL/L (20-31); CHLORIDE LEVEL 108.0 MMOL/L (98-107); CREATININE FOR GFR 1.3 MG/DL (0.70-1.30); GLOMERULAR FILTRATION RATE 53.5 (>35); POTASSIUM SERUM 4.6 MMOL/L (3.5-5.1); SODIUM LEVEL 145.0 MMOL/L (136-145)
[2025-06-28 16:08] LABS: PLATELET COUNT, AUTOMATED 216 10^3/uL (150-450)
== END ==
LOC: M SHH 14:39
PROVIDERS: ATTEND Student in an Organized Health Care Education/Training Program
DX: I10 Essential (primary) hypertension (principal); D64.9 Anemia, unspecified

== ENCOUNTER → 2025-07-13 | Outpatient (CLI) | payer MEDICARE, OTHER ==
[2025-07-13 18:06] LABS: BASO # 0.1 10^3/uL (0.0-0.2); BASO % 0.8 % (0.0-1.0); EOS # 0.3 10^3/uL (0.0-0.5); EOS % 3.8 % (0.0-3.0); LYMPH # 0.8 10^3/uL (1.5-5.0); LYMPH % 10.1 % (24.0-44.0); MONO # 0.8 10^3/uL (0.0-0.8); MONO % 9.9 % (2.0-8.0); NEUTROPHILS # 5.8 10^3/uL (1.5-8.5); NEUTROPHILS % 75.0 % (36.0-66.0); PLATELET COUNT, AUTOMATED 297 10^3/uL (150-450)
[2025-07-13 18:25] LABS: ERYTHROCYTE SEDIMENTATION RATE 67 mm/hr (0-20)
== END ==
LOC: M PLALAB 16:33
PROVIDERS: ATTEND Student in an Organized Health Care Education/Training Program
DX: D64.9 Anemia, unspecified (principal)

== ENCOUNTER → 2025-07-28 | Outpatient (CLI) | payer MEDICARE, OTHER | LOC: M RAD 14:28 | PROVIDERS: ATTEND Radiology Diagnostic Radiology | DX: I83.892 Varicose veins of left lower extremity with other complications (principal) ==

== ENCOUNTER → 2025-08-03 | Outpatient (REF) | payer MEDICARE, OTHER ==
[~2025-08-03] MED LIST changes: +AMLO1TAB24 PO; +POTA-298 PO
[2025-08-03 14:08] LABS: BASO # 0.1 10^3/uL (0.0-0.2); BASO % 1.1 % (0.0-1.0); EOS # 0.3 10^3/uL (0.0-0.5); EOS % 5.4 % (0.0-3.0); LYMPH # 0.8 10^3/uL (1.5-5.0); LYMPH % 12.8 % (24.0-44.0); MONO # 0.8 10^3/uL (0.0-0.8); MONO % 12.8 % (2.0-8.0); NEUTROPHILS # 4.2 10^3/uL (1.5-8.5); NEUTROPHILS % 67.4 % (36.0-66.0); PLATELET COUNT, AUTOMATED 262 10^3/uL (150-450)
[2025-08-03 14:09] LABS: CALCIUM LEVEL 8.8 MG/DL (8.3-10.6); CARBON DIOXIDE LEVEL 26.0 MMOL/L (20-31); CHLORIDE LEVEL 109.0 MMOL/L (98-107); CREATININE FOR GFR 1.26 MG/DL (0.70-1.30); GLOMERULAR FILTRATION RATE 55.6 (>35); MAGNESIUM LEVEL 2.3 MG/DL (1.8-2.4); POTASSIUM SERUM 4.5 MMOL/L (3.5-5.1); SODIUM LEVEL 145.0 MMOL/L (136-145)
[2025-08-03 18:03] LABS: ESTIMATED AVERAGE GLUCOSE 114.0 MG/DL (60-110)
== END ==
LOC: M SFHCPLAZ 13:03
PROVIDERS: ATTEND Student in an Organized Health Care Education/Training Program
DX: I10 Essential (primary) hypertension (principal); E11.621 Type 2 diabetes mellitus with foot ulcer; K92.2 Gastrointestinal hemorrhage, unspecified

== ENCOUNTER 2025-08-04 10:50 | Inpatient (IN) | payer MEDICARE, OTHER ==
[~2025-08-04] VITALS: Ht 162.6 cm; Wt 119.8 kg
[2025-08-04] MEDS: amLODIPine 5 MG TAB PO SCH (09:00)
[~2025-08-04 10:50] MED LIST changes: -AMLO1TAB24 PO; -POTA-298 PO; +TORSEMIDE 10 MG TABLET PO SCH
[2025-08-04 12:30] LABS: BASO # 0.1 10^3/uL (0.0-0.2); BASO % 1.0 % (0.0-1.0); EOS # 0.4 10^3/uL (0.0-0.5); EOS % 5.8 % (0.0-3.0); LYMPH # 0.8 10^3/uL (1.5-5.0); LYMPH % 11.8 % (24.0-44.0); MONO # 0.8 10^3/uL (0.0-0.8); MONO % 11.1 % (2.0-8.0); NEUTROPHILS # 4.9 10^3/uL (1.5-8.5); NEUTROPHILS % 69.7 % (36.0-66.0); PLATELET COUNT, AUTOMATED 264 10^3/uL (150-450)
[2025-08-04 12:43] LABS: INR 1.01
[2025-08-04 12:52] LABS: ALT/SGPT 13.0 U/L (7.0-40); AST/SGOT 18.0 U/L (<34)
[2025-08-04] MEDS ORDERED: ISOVUE-370 76% 100 ML VIAL As Ordered ONE (13:21)
[2025-08-04] MEDS ORDERED: PANT40TA29 PO (14:30)
[2025-08-04] MEDS ORDERED: POTA-298 PO (14:30)
[2025-08-04] MEDS ORDERED: AMLO1TAB24 PO (14:30)
[2025-08-04] MEDS ORDERED: HOME MED LIST COMPLETE! XX SCH (14:35)
[2025-08-04 15:43] LABS: KETONE, URINE AUTO RFX NEGATIVE (NEGATIVE); LEUKOCYTE ESTERASE UR AUTO RFX NEGATIVE (NEGATIVE); NITRITE, URINE AUTO RFX NEGATIVE (NEGATIVE); RBC, URINE AUTO RFX 1 /HPF (0-3); SQUAM EPITHELIAL CELL UR AURFX 0 /HPF (0-6); WBC, URINE AUTO RFX 1 /HPF (0-3)
[2025-08-04] MEDS: PANTOPRAZOLE 40MG VIAL IV SCH (16:10)
[2025-08-04 16:13] VITALS: BP 139/65; TEMP 98.3; O2SAT 95
[2025-08-04 16:27] VITALS: BP 154/65; TEMP 98.2; O2SAT 98
[2025-08-04 17:30] VITALS: BP 162/67; TEMP 97.2; O2SAT 100
[2025-08-04 17:58] VITALS: BP 192/76; TEMP 97.5; O2SAT 96
[2025-08-04] MEDS: ADVAIR HFA 115/21 MCG INHALER INH SCH (20:00)
[2025-08-04 20:31] VITALS: BP 118/53; TEMP 97.7; O2SAT 98
[2025-08-04] MEDS: ROSUVASTATIN 10 MG TAB PO SCH (20:35)
[2025-08-04] MEDS: LATANOPROST 0.005% OPHTH SOLN 2.5 ML OU SCH (21:00)
[2025-08-05 06:28] LABS: PLATELET COUNT, AUTOMATED 233 10^3/uL (150-450)
[2025-08-05 06:31] VITALS: BP 142/54; TEMP 98.2; O2SAT 91
[2025-08-05 06:53] LABS: CALCIUM LEVEL 8.7 MG/DL (8.3-10.6); CARBON DIOXIDE LEVEL 25.0 MMOL/L (20-31); CHLORIDE LEVEL 112.0 MMOL/L (98-107); CREATININE FOR GFR 1.24 MG/DL (0.70-1.30); GLOMERULAR FILTRATION RATE 56.6 (>35); POTASSIUM SERUM 4.1 MMOL/L (3.5-5.1); SODIUM LEVEL 147.0 MMOL/L (136-145)
[2025-08-05] MEDS ORDERED: ENTER DRUG NAME HERE (PATIENT'S OWN MED) PO SCH (09:00)
[2025-08-05 10:00] VITALS: BP 145/55; TEMP 98.1; O2SAT 90
[2025-08-05 10:25] VITALS: BP 148/54; TEMP 98.2; O2SAT 91
[2025-08-05 11:10] VITALS: BP 145/55; TEMP 98.1; O2SAT 88
[2025-08-05 12:10] VITALS: BP 149/55; TEMP 98.1; O2SAT 89
[2025-08-05] MEDS ORDERED: LIDOCAINE 2% 100 MG/5 ML SDV (FOR ANES.) As Ordered ONE (15:50)
[2025-08-05] MEDS: D5W 500 ML IV ONE (18:22)
[2025-08-05 20:10] VITALS: BP 146/55; TEMP 98.1; O2SAT 92
[2025-08-06 05:19] VITALS: BP 137/64; TEMP 98.4; O2SAT 97
[2025-08-06 07:50] LABS: BASO # 0.1 10^3/uL (0.0-0.2); BASO % 0.8 % (0.0-1.0); EOS # 0.2 10^3/uL (0.0-0.5); EOS % 2.6 % (0.0-3.0); LYMPH # 0.6 10^3/uL (1.5-5.0); LYMPH % 8.0 % (24.0-44.0); MONO # 1.1 10^3/uL (0.0-0.8); MONO % 14.3 % (2.0-8.0); NEUTROPHILS # 5.6 10^3/uL (1.5-8.5); NEUTROPHILS % 73.6 % (36.0-66.0); PLATELET COUNT, AUTOMATED 212 10^3/uL (150-450)
[2025-08-06 08:14] LABS: CALCIUM LEVEL 8.7 MG/DL (8.3-10.6); CARBON DIOXIDE LEVEL 26.0 MMOL/L (20-31); CHLORIDE LEVEL 111.0 MMOL/L (98-107); CREATININE FOR GFR 1.29 MG/DL (0.70-1.30); GLOMERULAR FILTRATION RATE 54.0 (>35); POTASSIUM SERUM 4.1 MMOL/L (3.5-5.1); SODIUM LEVEL 146.0 MMOL/L (136-145)
[2025-08-06] MEDS: SENNOSIDES/DOCUSATE SODIUM 8.6 MG/50MG TAB PO SCH (09:54)
[2025-08-06] MEDS: D5W 1,000 ML IV SCH (09:54)
[2025-08-06] MEDS: CLOPIDOGREL 75 MG TAB PO SCH (09:54)
[2025-08-06] MEDS: ASPIRIN 81 MG ENTERIC TABLET PO SCH (09:54)
[2025-08-06 12:00] VITALS: BP 136/67; TEMP 97.9; O2SAT 89
[2025-08-06] MEDS: MOM 30 ML SUSPENSION UDC PO ONE (18:10)
[2025-08-06 20:13] VITALS: BP 139/64; TEMP 97.8; O2SAT 87
[2025-08-06] MEDS: ALBUTEROL SULFATE 2.5 MG/0.5 ML INH CONCENTRATE NEB SOLN NEB PRN (20:36)
[2025-08-06 20:54] VITALS: O2SAT 93
[2025-08-06] MEDS ORDERED: ALBUTEROL 90 MCG/ACT 8 GM HFA INHALER INH PRN (23:15)
[2025-08-07] MEDS: IPRATROPIUM 0.5 MG/ALBUTEROL 2.5 MG INH SOL UD 3 ML NEB SCH (01:13)
[2025-08-07 03:56] VITALS: BP 142/63; TEMP 97.9; O2SAT 88
[2025-08-07] MEDS: PANTOPRAZOLE 40MG TAB PO SCH (08:11)
[2025-08-07] MEDS: BISACODYL 10 MG SUPP PR ONE (09:03)
[2025-08-07 11:01] LABS: BASO # 0.0 10^3/uL (0.0-0.2); BASO % 0.5 % (0.0-1.0); EOS # 0.2 10^3/uL (0.0-0.5); EOS % 2.5 % (0.0-3.0); LYMPH # 0.6 10^3/uL (1.5-5.0); LYMPH % 6.9 % (24.0-44.0); MONO # 1.3 10^3/uL (0.0-0.8); MONO % 16.4 % (2.0-8.0); NEUTROPHILS # 5.9 10^3/uL (1.5-8.5); NEUTROPHILS % 73.2 % (36.0-66.0); PLATELET COUNT, AUTOMATED 202 10^3/uL (150-450)
[2025-08-07 11:23] LABS: CALCIUM LEVEL 8.4 MG/DL (8.3-10.6); CARBON DIOXIDE LEVEL 27.0 MMOL/L (20-31); CHLORIDE LEVEL 107.0 MMOL/L (98-107); CREATININE FOR GFR 1.36 MG/DL (0.70-1.30); GLOMERULAR FILTRATION RATE 50.7 (>35); POTASSIUM SERUM 4.1 MMOL/L (3.5-5.1); SODIUM LEVEL 143.0 MMOL/L (136-145)
[2025-08-07 12:00] VITALS: BP 151/57; TEMP 98.6; O2SAT 92
[2025-08-07] MEDS: ACETAMINOPHEN 325 MG TAB PO PRN (18:40)
[2025-08-07 21:19] VITALS: BP 149/55; TEMP 98.1; O2SAT 95
[2025-08-08 03:35] VITALS: BP 146/56; TEMP 97.9; O2SAT 92
[2025-08-08] MEDS: MIRALAX *UNIT DOSE* 17 GM PACKET PO SCH (10:57)
[2025-08-08] MEDS: DOCUSATE SODIUM 100 MG CAPSULE PO SCH (10:57)
[2025-08-08 12:00] VITALS: BP 147/60; TEMP 98.1; O2SAT 90
[2025-08-08] MEDS ORDERED: POTA-298 PO (12:11)
[2025-08-08] MEDS ORDERED: COLA100C5 PO (12:11)
[2025-08-08] MEDS ORDERED: MIRA3350 PO (12:11)
[2025-08-08 20:49] VITALS: BP 143/60; TEMP 97.7; O2SAT 92
[2025-08-08 21:30] VITALS: O2SAT 92
[2025-08-09 02:43] VITALS: BP 136/62; TEMP 97.9; O2SAT 100
[2025-08-09 05:53] VITALS: BP 155/58; TEMP 97.9; O2SAT 95
[2025-08-09 06:29] LABS: BASO # 0.1 10^3/uL (0.0-0.2); BASO % 0.8 % (0.0-1.0); EOS # 0.6 10^3/uL (0.0-0.5); EOS % 7.6 % (0.0-3.0); LYMPH # 0.7 10^3/uL (1.5-5.0); LYMPH % 9.2 % (24.0-44.0); MONO # 0.9 10^3/uL (0.0-0.8); MONO % 12.1 % (2.0-8.0); NEUTROPHILS # 5.2 10^3/uL (1.5-8.5); NEUTROPHILS % 69.8 % (36.0-66.0); PLATELET COUNT, AUTOMATED 226 10^3/uL (150-450)
[2025-08-09 08:33] VITALS: BP 144/58
[2025-08-09 11:58] VITALS: BP 149/68; TEMP 97.5; O2SAT 89
== END 2025-08-09 13:17 | disposition home health service (06) | DRG 378 ==
LOC: M ED 10:50 → M ED INP 16:09 → M MSPAV 18:24
PROVIDERS: ADMIT Internal Medicine; ATTEND Internal Medicine
PROC: 30233N1 Transfusion of Nonautologous Red Blood Cells into Peripheral Vein, Percutaneous Approach (ICD-10-PCS; 2025-08-04)
PROC: 0DB68ZX Excision of Stomach, Via Natural or Artificial Opening Endoscopic, Diagnostic (ICD-10-PCS; principal; 2025-08-05 15:30)
DX: K92.1 Melena (principal); E87.0 Hyperosmolality and hypernatremia; D64.9 Anemia, unspecified; K92.2 Gastrointestinal hemorrhage, unspecified; J44.9 Chronic obstructive pulmonary disease, unspecified; I12.9 Hypertensive chronic kidney disease with stage 1 through stage 4 chronic kidney disease, or unspecified chronic kidney disease; E11.51 Type 2 diabetes mellitus with diabetic peripheral angiopathy without gangrene; E11.22 Type 2 diabetes mellitus with diabetic chronic kidney disease; N18.30 Chronic kidney disease, stage 3 unspecified; G47.33 Obstructive sleep apnea (adult) (pediatric); N32.81 Overactive bladder; H91.90 Unspecified hearing loss, unspecified ear; I87.2 Venous insufficiency (chronic) (peripheral); Z87.891 Personal history of nicotine dependence; Z79.82 Long term (current) use of aspirin; Z79.899 Other long term (current) drug therapy

== ENCOUNTER → 2025-08-15 | Outpatient (CLI) | payer MEDICARE, OTHER ==
[~2025-08-15] MED LIST changes: +AMLO1TAB24 PO; +FLUT1BLS16; +MIRA3350 PO; +POTA-298 PO; -TORSEMIDE 10 MG TABLET PO SCH
[2025-08-15 13:54] LABS: PLATELET COUNT, AUTOMATED 349 10^3/uL (150-450)
== END ==
LOC: M PLALAB 11:44
DX: D50.8 Other iron deficiency anemias (principal)

== ENCOUNTER → 2025-09-06 | Outpatient (CLI) | payer MEDICARE, OTHER ==
[2025-09-06 17:34] LABS: BASO # 0.1 10^3/uL (0.0-0.2); BASO % 0.8 % (0.0-1.0); EOS # 0.5 10^3/uL (0.0-0.5); EOS % 7.3 % (0.0-3.0); LYMPH # 0.7 10^3/uL (1.5-5.0); LYMPH % 9.9 % (24.0-44.0); MONO # 0.9 10^3/uL (0.0-0.8); MONO % 11.7 % (2.0-8.0); NEUTROPHILS # 5.1 10^3/uL (1.5-8.5); NEUTROPHILS % 69.9 % (36.0-66.0); PLATELET COUNT, AUTOMATED 237 10^3/uL (150-450)
== END ==
LOC: M PLALAB 16:26
PROVIDERS: ATTEND Student in an Organized Health Care Education/Training Program
DX: K92.2 Gastrointestinal hemorrhage, unspecified (principal)

== ENCOUNTER 2025-09-16 08:30 | Day surgery (SDC) | payer MEDICARE, OTHER ==
[~2025-09-16] VITALS: Ht 172.7 cm; Wt 114.3 kg
[2025-09-16] MEDS: IPRATROPIUM 0.5 MG/ALBUTEROL 2.5 MG INH SOL UD 3 ML NEB ONE (10:00)
[2025-09-16 10:40] VITALS: TEMP 97.8
[2025-09-16] MEDS ORDERED: GLYCOPYRROLATE INJ 0.2 MG/ML 2 ML VIAL As Ordered ONE (10:40)
[2025-09-16] MEDS ORDERED: LIDOCAINE 2% 100 MG/5 ML SDV (FOR ANES.) As Ordered ONE (10:40)
[2025-09-16 11:07] VITALS: BP 170/69; O2SAT 98
== END 2025-09-16 11:30 | disposition home or self-care (01) ==
LOC: M OPP 08:30
PROVIDERS: ATTEND Internal Medicine Gastroenterology
DX: K63.5 Polyp of colon (principal); K92.1 Melena; I12.9 Hypertensive chronic kidney disease with stage 1 through stage 4 chronic kidney disease, or unspecified chronic kidney disease; E78.00 Pure hypercholesterolemia, unspecified; J44.9 Chronic obstructive pulmonary disease, unspecified; I25.10 Atherosclerotic heart disease of native coronary artery without angina pectoris; I50.9 Heart failure, unspecified; G47.30 Sleep apnea, unspecified; Z79.82 Long term (current) use of aspirin; Z79.899 Other long term (current) drug therapy
CPT/HCPCS: 45385; 88305; J1596